=== PATIENT | male | born 1995 | race Caucasian/White ===

== ENCOUNTER 2022-02-13 18:11 | Emergency (ER) | payer BC, SELFPAY ==
[2022-02-13 18:17] VITALS: BP 153/106; PULSE 89; RESP 24; TEMP 35.7; O2SAT 99; BMI 28.5
--- NOTE | 2022-02-13 18:32 | ED_ITS ---
HPI - General Adult General Time Seen by Provider: 18:32 Date Seen: 02/13/22 Chief complaint: Nausea/Vomiting Stated complaint: VOMITING Time Seen by Provider: 02/13/22 18:13 Source: patient Mode of arrival: ambulatory Limitations: no limitations History of Present Illness HPI narrative: Patient is a 26 year white male with [facility] of cyclic [facility], he also reports alcohol use last night that was fairly heavy, none today. He has had a history of using alcohol more recently. He states he has had nausea vomiting started this morning and has not relented. He has had very similar presentations multiple times to the ER. He does respond pretty well to antipsychotic agent IM and some antiemetic medicine. At this point he does not feel he needs IV fluids but would like some injection of medication as it has helped him in the past when he gets in the cyclic vomiting type syndrome either stimulated apparently by marijuana or alcohol use. He denies chest pain shortness of breath, denies skin rashes, denies trauma or injury. Related Data Home Medications Medication Instructions Recorded Confirmed bupropion HCl 150 mg 24 hr tablet, mg PO 02/13/22 extended release clonidine 0.3 mg/24 hr weekly 02/13/22 transdermal patch desvenlafaxine succinate 50 mg mg PO 02/13/22 tablet,extended release 24 hr hydroxyzine HCl 25 mg tablet mg 02/13/22 lisinopril 10 mg tablet mg 02/13/22 lorazepam 0.5 mg tablet mg 02/13/22 ondansetron 4 mg disintegrating mg 02/13/22 tablet prochlorperazine 25 mg rectal mg [place] 02/13/22 suppository Allergies Allergy/AdvReac Type Severity Reaction Status Date / Time haloperidol [From Haldol] Allergy Verified 02/21/22 14:31 Review of Systems Status of ROS: Reports: 6 or more systems reviewed and unremarkable except as noted in History and below PFSH PFSH Social History Smoking Status: Current every day smoker What tobacco products do you use: cigarettes Do you use any of these nicotine containing products: E-Cigarettes and Vaping Products Second hand tobacco smoke exposure: No How often do you have a drink containing alcohol: 4 or more times a week How many standard drinks containing alcohol do you have on a typical day: 3 or 4 How often do you have six or more drinks on one occasion: Daily or almost daily AUDIT-C Alcohol total score: 9 Non-prescribed substance use: marijuana (any form) service: No Exam Narrative: Exam Narrative: Objective: Patient is in mild distress and discomfort he is alert oriented x3. He is actually less agitated than he typically is when he arrives Pulses regular HEENT is unremarkable Neck is supple Abdomen is soft benign nontender Extremities unremarkable Neurologic nonfocal patient is ambulatory Const: Vital Signs, click to edit/add: Vital Signs - 24 hr 02/13/22 18:17 02/13/22 18:49 Temperature 96.3 F L Pulse Rate [Right Pulse Oximeter] 89 71 Respiratory Rate 24 Blood Pressure [Ri ght Upper Arm] 153/106 H Pulse Oximetry 99 98 Course Vital Signs Vital signs: Initial Vital Signs Temperature 96.3 F L 02/13/22 18:17 Temperature Source Temporal Artery Scan 02/13/22 18:17 Pulse Rate 89 02/13/22 18:17 Pulse Rhythm 02/13/22 18:17 Respiratory Rate 24 02/13/22 18:17 Blood Pressure 153/106 H 02/13/22 18:17 Blood Pressure Mean 121 02/13/22 18:17 Blood Pressure Position Sitting 02/13/22 18:17 Pulse Oximetry 99 02/13/22 18:17 Vital Signs Temperature 96.3 F L 02/13/22 18:17 Pulse Rate 89 02/13/22 18:17 Respiratory Rate 24 02/13/22 18:17 Blood Pressure 153/106 H 02/13/22 18:17 Pulse Oximetry 99 02/13/22 18:17 Temperature 96.3 F L 02/13/22 18:17 Pulse Rate 65 02/13/22 18:58 Respiratory Rate 24 02/13/22 18:17 Blood Pressure 153/106 H 02/13/22 18:17 Pulse Oximetry 98 02/13/22 18:58 Oxygen Delivery Method 02/13/22 18:58 Medical Decision Making MDM Narrative Medical decision making narrative: Patient has had a history of cyclic vomitus in vomiting syndrome as well as vomiting after alcohol use. At this point I think treatment for the above- mentioned problem would be appropriate given his past history response to good response to these medications, will give him Zyprexa 7.5 mg IM Ativan 0.5 mg im, and Benadryl 25 mg IM. He will be observed in the ED for a period of time he is able to take fluids he can be allowed to go home. He does have a ride home he states. Discharge Plan Discharge Clinical Impression: Cyclic vomiting syndrome Patient Disposition: Home, Self-Care Condition: Improved Additional Instructions: Continue home meds, light activity, fluids, update primary care in the next 12 to 24 hours.. Activity Level: Light activity Discharge Diet: Regular Prescriptions: No Action lorazepam 0.5 mg tablet Label Comments: 2 weeks prochlorperazine 25 mg suppository OH lisinopril 10 mg tablet hydroxyzine HCl 25 mg tablet clonidine 0.3 mg/24 hr patch weekly ondansetron 4 mg tablet,disintegrating Label Comments: DISSOLVE 1 TABLET ON THE TONGUE EVERY 8 HOURS NEEDED FOR NAUSEA OR VOMITING bupropion HCl 150 mg tablet extended release 24 hr PO desvenlafaxine succinate 50 mg tablet extended release 24 hr PO Stand Alone Forms: [facility] Info Instructions
[2022-02-13] MEDS: diphenhydrAMINE 50 MG/ML inj 25 MG IM (18:47)
[2022-02-13] MEDS: OLANZapine 5 MG/ML inj 7.5 MG IM (18:47)
[2022-02-13 18:49] VITALS: PULSE 71; O2SAT 98
[2022-02-13 18:58] VITALS: PULSE 65; O2SAT 98
[2022-02-13] MEDS: LORazepam 0.5 MG TABLET PO (19:00)
--- NOTE | 2022-02-13 19:25 | ED.NURSE ---
Pt reports feeling improved. Has called ride to pick him up.
== END 2022-02-13 19:38 | disposition home or self-care (01) ==
LOC: ED 18:51
PROVIDERS: Emergency Provider Family Medicine; PCP Physician Assistant Medical
DX: R11.15 Cyclical vomiting syndrome unrelated to migraine (principal); F12.90 Cannabis use, unspecified, uncomplicated
CPT/HCPCS: 96372; 99282; 99283; A9270; J1200; S0166

== ENCOUNTER 2022-02-21 14:16 | Emergency (ER) | payer BC, SELFPAY ==
[2022-02-21 14:21] VITALS: BP 179/123; PULSE 71; RESP 18; TEMP 36.1; O2SAT 100; BMI 28.5
--- NOTE | 2022-02-21 15:01 | ED_ITS ---
HPI - General Adult General Time Seen by Provider: 14:40 Date Seen: 02/21/22 Chief complaint: Nausea/Vomiting Stated complaint: Vomiting Time Seen by Provider: 02/21/22 14:22 Source: patient, RN notes reviewed and old records reviewed Mode of arrival: ambulatory Limitations: no limitations History of Present Illness HPI narrative: Antonio is a 26-year-old male patient well known to us with cyclical vomiting syndrome. He states he was drinking alcohol, had vodka yesterday. He has been having increased usage of alcohol as of late and he understands that this is pro blematic. Since early this morning he has started vomiting and having recurrent vomiting. No hematemesis. No fevers chills. Symptoms are typical of his usual sickle vomiting. He is requesting IM medications, he would prefer Zyprexa. He states he gets dystonic reactions with Haldol. He also is requesting 50 mg of Benadryl but he does want all of his medicines IM. He does not think he needs any IV fluids at this time. Onset (ago): hour(s) Related Data Home Medications Medication Instructions Recorded Confirmed bupropion HCl 150 mg 24 hr tablet, mg PO 02/13/22 extended release clonidine 0.3 mg/24 hr weekly 02/13/22 transdermal patch desvenlafaxine succinate 50 mg mg PO 02/13/22 tablet,extended release 24 hr hydroxyzine HCl 25 mg tablet mg 02/13/22 lisinopril 10 mg tablet mg 02/13/22 lorazepam 0.5 mg tablet mg 02/13/22 ondansetron 4 mg disintegrating mg 02/13/22 tablet prochlorperazine 25 mg rectal mg ME 02/13/22 suppository Allergies Allergy/AdvReac Type Severity Reaction Status Date / Time haloperidol [From Haldol] Allergy Verified 02/21/22 14:31 Review of Systems Status of ROS: Reports: 6 or more systems reviewed and unremarkable except as noted in History and below Exam Const: Vital Signs, click to edit/add: Vital Signs - 24 hr 02/21/22 14:21 02/21/22 15:10 02/21/22 15:15 Temperature 96.9 F L Pulse Rate [Pulse Oximeter] 71 65 65 Respiratory Rate 18 Blood Pressure [Ri ght Upper Arm] 179/123 H Pulse Oximetry 100 98 100 Oxygen Delivery Me thod Room Air Room Air Room Air 02/21/22 15:26 02/21/22 15:49 Temperature Pulse Rate [Pulse Oximeter] 56 L 71 Respiratory Rate Blood Pressure [Ri ght Upper Arm] Pulse Oximetry 93 95 Oxygen Delivery Me thod Room Air Room Air Documenting provider has reviewed patient's vital signs: yes Common normals: no apparent distress, oriented x3, no limitations, healthy appearing, alert and well nourished General appearance: cooperative and comfortable Other: Moving about on bed, deep breathing but overall no apparent distress. HENMT: Common normals: normocephalic, head/scalp atraumatic, moist oral mucous membranes and oropharynx normal Head and scalp: normocephalic and atraumatic Eye: Common normals: PERRL, EOMs intact bilaterally, conjunctivae normal and no scleral icterus Conjunctiva: conjunctiva(e) normal Pupil: PERRL Neck & C-Spine: Common normals: full ROM, no lymphadenopathy, supple, no meningeal signs, no JVD and thyroid normal Thyroid: thyroid normal Resp: Common normals: normal respiratory effort, no retractions, no use of accessory muscles and clear to auscultation bilaterally Auscultation: clear to auscultation bilaterally Cardio: Common normals: no JVD, regular rate, regular rhythm, S1 normal heart sound, S2 normal heart sound, no gallops, no clicks and no murmurs Rate: regular rate Rhythm: regular rhythm Heart sounds: S1 normal and S2 normal GI: Common normals: Normal to inspection, nondistended, normoactive bowel sounds present, soft to palpation, non-tender, no hepatosplenomegaly and no masses Palpation: soft and no hepatosplenomegaly Neuro: Common normals: oriented x3 Sensorium/orientation: alert Meningeal signs: no meningeal signs Course Course Hospital Course: Reviewed with patient, he wants to have zyprexa, benadryl 50 and zofran IM. Doesn't believe that he needs iv fluids or any labs. Does state that he will work with his primary provider regarding the increase in alcohol usage. Reevaluation(s) Reevaluation #1: Antonio was sleeping and resting comfortably. I did awaken him. He feels like he is ready to go. I feel that this is appropriate to discharge for further outpatient management. Time: 17:11 Vital Signs Vital signs: Initial Vital Signs Temperature 96.9 F L 02/21/22 14:21 Temperature Source Temporal Artery Scan 02/21/22 14:21 Pulse Rate 71 02/21/22 14:21 Pulse Rhythm 02/21/22 14:21 Respiratory Rate 18 02/21/22 14:21 Blood Pressure 179/123 H 02/21/22 14:21 Blood Pressure Mean 141 02/21/22 14:21 Pulse Oximetry 100 02/21/22 14:21 Oxygen Delivery Method 02/21/22 14:21 Vital Signs Temperature 96.9 F L 02/21/22 14:21 Pulse Rate 71 02/21/22 14:21 Respiratory Rate 18 02/21/22 14:21 Blood Pressure 179/123 H 02/21/22 14:21 Pulse Oximetry 100 02/21/22 14:21 Oxygen Delivery Method 02/21/22 14:21 Temperature 96.9 F L 02/21/22 14:21 Pulse Rate 71 02/21/22 15:49 Respiratory Rate 18 02/21/22 14:21 Blood Pressure 179/123 H 02/21/22 14:21 Pulse Oximetry 95 02/21/22 15:49 Oxygen Delivery Method 02/21/22 15:49 Critical Care Time Critical Care Time Critical Care Time: No Discharge Plan Discharge Clinical Impression: Cyclic vomiting syndrome Patient Disposition: Home, Self-Care Condition: Stable Instructions: Cyclic Vomiting Syndrome (ED) Additional Instructions: Recommend refraining from marijuana and alcohol. You need to schedule a follow- up clinic appointment with her primary care provider as soon as able to. Take frequent small sips of fluids to stay hydrated, can advance your diet back to normal as able to. Activity Level: No Restrictions Discharge Diet: Regular Prescriptions: No Action lorazepam 0.5 mg tablet Label Comments: 2 weeks prochlorperazine 25 mg suppository [place] lisinopril 10 mg tablet hydroxyzine HCl 25 mg tablet clonidine 0.3 mg/24 hr patch weekly ondansetron 4 mg tablet,disintegrating Label Comments: DISSOLVE 1 TABLET ON THE TONGUE EVERY 8 HOURS NEEDED FOR NAUSEA OR VOMITING bupropion HCl 150 mg tablet extended release 24 hr PO desvenlafaxine succinate 50 mg tablet extended release 24 hr PO Follow Up/Referrals: Deepthi Mc PA-C [Primary Care Provider] - Stand Alone Forms: [employer] Info Instructions
[2022-02-21] MEDS: diphenhydrAMINE 50 MG/ML inj IM (15:09)
[2022-02-21] MEDS: OLANZapine 5 MG/ML inj 10 MG IM (15:09)
[2022-02-21 15:10] VITALS: PULSE 65; O2SAT 98
[2022-02-21] MEDS: ONDANSETRON 2 MG/ML inj 4 MG IM (15:10)
[2022-02-21 15:15] VITALS: PULSE 65; O2SAT 100
[2022-02-21 15:26] VITALS: PULSE 56; O2SAT 93
[2022-02-21 15:49] VITALS: PULSE 71; O2SAT 95
[2022-02-21 17:25] VITALS: BP 120/78
== END 2022-02-21 17:40 | disposition home or self-care (01) ==
PROVIDERS: Emergency Provider Family Medicine; PCP Physician Assistant Medical
DX: R11.15 Cyclical vomiting syndrome unrelated to migraine (principal)
CPT/HCPCS: 96372; 99283; J1200; J2405; S0166

== ENCOUNTER 2022-03-03 09:31 | Emergency (ER) | payer BC, SELFPAY ==
[2022-03-03 09:44] VITALS: BP 185/133; PULSE 79; RESP 22; TEMP 35.9; O2SAT 100; BMI 27.0
--- NOTE | 2022-03-03 10:21 | ED.NURSE ---
Pt removed all monitors - Pulse ox, BP cuff . Not allowing them to be replaced.
--- NOTE | 2022-03-03 10:50 | ED.NURSE ---
Pt continuously filling water bottle in room sink. Drinking water and then immediately spitting it out.
[2022-03-03] MEDS: OLANZapine 5 MG/ML inj 10 MG IM (10:58)
[2022-03-03] MEDS: diphenhydrAMINE 50 MG/ML inj IM (10:58)
--- NOTE | 2022-03-03 11:30 | ED_ITS ---
HPI - Nausea/Vomiting/Diarrhea General Time Seen by Provider: 10:44 Date Seen: 03/03/22 Chief complaint: Nausea/Vomiting Stated complaint: vomiting and abdominal pain Time Seen by Provider: 03/03/22 10:39 Source: patient, family, RN notes reviewed and old records reviewed Mode of arrival: ambulatory Limitations: no limitations History of Present Illness HPI Narrative: Antonio is a 26-year-old gentleman well-known to the emergency room who has a history of cyclic vomiting syndrome associated with anxiety, marijuana use as well as alcohol use who comes to the emergency room with his mother for evaluation of vomiting. Just started vomiting early this morning at about 0200 hours and has continued. He does admit to drinking 3-4 beers yesterday. He has been doing this on a daily basis. His mom states that he has had past treatment for alcohol use and was sober for 8 months while he was in a longterm house. He has had increased stressors as he is now moved out to independent living as well as his sister recently having a baby. He denies any drug use. He feels that this particular episode is similar to past episodes. He denies fever, chills, cough or COVID symptoms. MD elicited complaint: nausea and vomiting Pertinent past history: cyclical vomiting Onset (ago): hour(s) Associated nausea: Yes Associated abdominal pain: No Relieving factors: other (Soft music and a fan) Context: alcohol abuse Associated symptoms: denies other symptoms Related Data Home Medications Medication Instructions Recorded Confirmed bupropion HCl 150 mg 24 hr tablet, mg PO 02/13/22 extended release clonidine 0.3 mg/24 hr weekly 02/13/22 transdermal patch desvenlafaxine succinate 50 mg mg PO 02/13/22 tablet,extended release 24 hr hydroxyzine HCl 25 mg tablet mg 02/13/22 lisinopril 10 mg tablet mg 02/13/22 lorazepam 0.5 mg tablet mg 02/13/22 ondansetron 4 mg disintegrating mg 02/13/22 tablet prochlorperazine 25 mg rectal mg [place] 02/13/22 suppository Allergies Allergy/AdvReac Type Severity Reaction Status Date / Time haloperidol [From Haldol] Allergy Verified 02/21/22 14:31 Review of Systems Status of ROS: Reports: 10 or more systems reviewed and unremarkable except as noted in History and below Const: Denies: fever or chills Eyes: Denies: change in vision ENMT: Denies: throat pain or difficulty swallowing Cardio: Denies: chest pain or shortness of breath with exertion Resp: Denies: shortness of breath or cough GI: Reports: nausea; Denies: difficulty swallowing : Denies: painful urination Integ/Breast: Denies: rash Neuro: Denies: headache Psych: Reports: anxiety Harshal/Lymph: Reports: easy bruising (States secondary to medications) PFSH PFS Social History Smoking Status: Current every day smoker What tobacco products do you use: cigarettes Second hand tobacco smoke exposure: No How often do you have a drink containing alcohol: 4 or more times a week How many standard drinks containing alcohol do you have on a typical day: 3 or 4 How often do you have six or more drinks on one occasion: Daily or almost daily AUDIT-C Alcohol total score: 9 Non-prescribed substance use: former substance user service: No Exam Narrative: Exam Narrative: Antonio is mom is present. Const: Vital Signs, click to edit/add: Vital Signs - 24 hr 03/03/22 09:44 Temperature 96.7 F L Pulse Rate [Left P ulse Oximeter] 79 Respiratory Rate 22 Blood Pressure [Ri ght Upper Arm] 185/133 H Pulse Oximetry 100 Oxygen Delivery Me thod Room Air Documenting provider has reviewed patient's vital signs: yes Common normals: average body habitus, oriented x3 and no limitations General appearance: cooperative and comfortable HENMT: Common normals: normocephalic, external ears normal and external nose normal Head and scalp: normocephalic Face and sinus: normal facial exam Nose: external nose normal External ear: external ears normal Mouth: oral and palatal mucosa normal Throat: posterior oropharynx normal Eye: Common normals: PERRL General eye: normal appearance of both eyes Pupil: PERRL Neck & C-Spine: Common normals: full ROM Resp: Common normals: clear to auscultation bilaterally Effort & inspection: other (Practicing deep breathing) Auscultation: clear to auscultation bilaterally Cardio: Common normals: regular rate and regular rhythm Rate: regular rate Rhythm: regular rhythm GI: Common normals: soft to palpation and non-tender Palpation: soft Extremity: Common normals: normal to inspection Neuro: Common normals: oriented x3 Psych: Common normals: cooperative Other: Antonio exhibits movement and deep breathing consistent with past visits. He is distractible and is very pointed in exactly what he wants for medications. He is requesting Zyprexa 10 mg IM, Benadryl 10 mg IM, Zofran 8 mg. Skin: Narrative: Bruising noted on the left forearm. Course Course Hospital Course: At this time Antonio is presenting for symptoms consistent with cyclic vomiting syndrome but now being induced by daily alcohol use. I explained to Antonio in his mom that essentially we do not treat for alcohol hangovers. I am concerned that Antonio is anxiety is at the heart of all of his symptoms. His mom states that he will be going to Alcohol anonymous meetings. He does call me back into the room when his mom departs requesting and naltrexone shot which I do decline. He will need to go through his primary MD for this. I am not entirely convinced that living alone is to Antonio's benefit. I declined his request for Zofran as he is already getting Zyprexa and I would like to avoid 2 medications that could cause QT prolongation. He then requests Compazine which I denied. I am willing to do Benadryl 50 mg IM, Zyprexa 10 mg IM. He states then he would rather not wait he would just rather go home. I would ask that he wait for the normal 15 minutes to ensure no reaction and then he may depart. Vital Signs Vital signs: Initial Vital Signs Temperature 96.7 F L 03/03/22 09:44 Temperature Source Temporal Artery Scan 03/03/22 09:44 Pulse Rate 79 03/03/22 09:44 Pulse Rhythm 03/03/22 09:44 Pulse Strength 3+ Normal 03/03/22 09:44 Respiratory Rate 22 03/03/22 09:44 Blood Pressure 185/133 H 03/03/22 09:44 Blood Pressure Mean 150 03/03/22 09:44 Blood Pressure Position Sitting 03/03/22 09:44 Pulse Oximetry 100 03/03/22 09:44 Oxygen Delivery Method 03/03/22 09:44 Vital Signs Temperature 96.7 F L 03/03/22 09:44 Pulse Rate 79 03/03/22 09:44 Respiratory Rate 22 03/03/22 09:44 Blood Pressure 185/133 H 03/03/22 09:44 Pulse Oximetry 100 03/03/22 09:44 Oxygen Delivery Method 03/03/22 09:44 Temperature 96.7 F L 03/03/22 09:44 Pulse Rate 79 03/03/22 09:44 Respiratory Rate 03/03/22 09:44 Blood Pressure 185/133 H 03/03/22 09:44 Pulse Oximetry 100 03/03/22 09:44 Oxygen Delivery Method 03/03/22 09:44 MDM - Nausea/Vomiting/Diarrhea MDM Narrative Medical decision making narrative: 1. Cyclic vomiting syndrome-patient received Zyprexa 10 mg IM, Benadryl 50 mg IM. Initial reports from nursing is that he was drinking water and then putting hand in his mouth to caused vomiting. This has since ceased. Note that are medications are only treating the symptoms and not the true cause of Antonio's issues. Recommend pushing fluids to not include water but to include Gatorade as well as good sources of magnesium. 2. Daily alcohol use-did recommend treatment today but Antonio declines this. Mom states that they are planning on having him attend AA meetings. 3. Disposition-patient is requesting to go home. He will be discharged. He should return as needed. Medical Records Attestation: I reviewed the patient's medical records. Discharge Plan Discharge Clinical Impression: Alcohol use, Cyclic vomiting syndrome Patient Disposition: Home w/ Parent or Adult Condition: Improved Additional Instructions: Push fluids as much as possible. I would suggest on not just water but also Gatorade, Powerade as well as increasing magnesium intake. Magnesium is found in green vegetables as well as sunflower seeds and some nuts. Alternatively you may take [id number] magnesium tablets. Return as needed. Consider alcohol treatment. Prescriptions: No Action lorazepam 0.5 mg tablet Label Comments: 2 weeks prochlorperazine 25 mg suppository OH lisinopril 10 mg tablet hydroxyzine HCl 25 mg tablet clonidine 0.3 mg/24 hr patch weekly ondansetron 4 mg tablet,disintegrating Label Comments: DISSOLVE 1 TABLET ON THE TONGUE EVERY 8 HOURS NEEDED FOR NAUSEA OR VOMITING bupropion HCl 150 mg tablet extended release 24 hr PO desvenlafaxine succinate 50 mg tablet extended release 24 hr PO Follow Up/Referrals: Deepthi Mc PA-C [Primary Care Provider] - Stand Alone Forms: [employer] Info Instructions
== END 2022-03-03 12:19 | disposition home or self-care (01) ==
PROVIDERS: Emergency Provider Family Medicine; PCP Physician Assistant Medical
DX: R11.15 Cyclical vomiting syndrome unrelated to migraine (principal); F10.99 Alcohol use, unspecified with unspecified alcohol-induced disorder
CPT/HCPCS: 96372; 99283; 99284; J1200; S0166

== ENCOUNTER 2022-04-08 15:35 | Emergency (ER) | payer BC, SELFPAY ==
[2022-04-08 15:40] VITALS: BP 151/90; PULSE 81; RESP 12; TEMP 35.8; O2SAT 100; BMI 27.1
--- NOTE | 2022-04-08 16:09 | ED.NAVMDI ---
HPI - Nausea/Vomiting/Diarrhea General Chief complaint: Nausea/Vomiting Stated complaint: Vomiting Time Seen by Provider: 04/08/22 15:51 History of Present Illness HPI Narrative: 26-year-old young man returning to this emergency department brought by his mother with recurrent vomiting over the last 7-8 hours beginning around 9:00 a.m. after last visit here, he received treatment and was discharged pending effect of medications; this is typical. He says that symptoms did not actually resolve at home other than over time. Does have a history of cyclic vomiting, severe anxiety and continued THC ingestion. His also now been over the last month living in his own apartment and has begun drinking with other increased social stressors as well. Last night actually had a half a L of vodka. He admits to drinking at least over the prior few nights as well. He says he knows he just has to stop. He has not been attending AA. He is not experiencing any hematochezia. Some mild abdominal pain. I asked him how we should treat him, he notes as usual, intramuscular injections of diphenhydramine, Zofran, lorazepam. I do not see Zyprexa on medication list at this time Related Data Home Medications Medication Instructions Recorded Confirmed bupropion HCl 150 mg 24 hr tablet, mg PO 02/13/22 extended release clonidine 0.3 mg/24 hr weekly 02/13/22 transdermal patch desvenlafaxine succinate 50 mg mg PO 02/13/22 tablet,extended release 24 hr hydroxyzine HCl 25 mg tablet mg 02/13/22 lisinopril 10 mg tablet mg 02/13/22 lorazepam 0.5 mg tablet mg 02/13/22 ondansetron 4 mg disintegrating mg 02/13/22 tablet prochlorperazine 25 mg rectal mg [place] 02/13/22 suppository Allergies Allergy/AdvReac Type Severity Reaction Status Date / Time haloperidol [From Haldol] Allergy Verified 02/21/22 14:31 Review of Systems Status of ROS: Reports: 6 or more systems reviewed and unremarkable except as noted in History and below [facility] Social History Smoking Status: Current every day smoker What tobacco products do you use: cigarettes Do you use any of these nicotine containing products: E-Cigarettes and Vaping Products Second hand tobacco smoke exposure: No How often do you have a drink containing alcohol: 4 or more times a week How many standard drinks containing alcohol do you have on a typical day: 3 or 4 How often do you have six or more drinks on one occasion: Daily or almost daily AUDIT-C Alcohol total score: 9 Non-prescribed substance use: marijuana (any form) service: No Exam Narrative: Exam Narrative: Very flushed in face. Very tremulous. Slower but labored and deep breathing. Has soothing music playing. I thought maybe I caught a slight odor of ketones Mouth and teeth look dry. Fully alert. Lungs appear to be clear Abdomen is soft and not particularly tender. Overweight. Cardiovascular with elevated rate on my auscultation; no tachycardia Const: Vital Signs, click to edit/add: Vital Signs - 24 hr 04/08/22 15:40 Temperature 96.4 F L Pulse Rate [Pulse Oximeter] 81 Respiratory Rate 12 Blood Pressure [Le ft Upper Arm] 151/90 H Pulse Oximetry 100 Oxygen Delivery Me thod Room Air Documenting provider has reviewed patient's vital signs: yes Course Course Hospital Course: Received injections. Discharged to [facility] Vital Signs Vital signs: Initial Vital Signs Temperature 96.4 F L 04/08/22 15:40 Temperature Source Temporal Artery Scan 04/08/22 15:40 Pulse Rate 81 04/08/22 15:40 Pulse Rhythm 04/08/22 15:40 Respiratory Rate 12 04/08/22 15:40 Blood Pressure 151/90 H 04/08/22 15:40 Blood Pressure Mean 110 04/08/22 15:40 Blood Pressure Position Right Lateral 04/08/22 15:40 Pulse Oximetry 100 04/08/22 15:40 Oxygen Delivery Method 04/08/22 15:40 Vital Signs Temperature 96.4 F L 04/08/22 15:40 Pulse Rate 81 04/08/22 15:40 Respiratory Rate 12 04/08/22 15:40 Blood Pressure 151/90 H 04/08/22 15:40 Pulse Oximetry 100 04/08/22 15:40 Oxygen Delivery Method 04/08/22 15:40 Temperature 96.4 F L 04/08/22 15:40 Pulse Rate 81 04/08/22 15:40 Respiratory Rate 12 04/08/22 15:40 Blood Pressure 151/90 H 09/19/22 15:40 Pulse Oximetry 100 04/08/22 15:40 Oxygen Delivery Method 04/08/22 15:40 MDM - Nausea/Vomiting/Diarrhea MDM Narrative Medical decision making narrative: We will try to break this episode. I did discuss that repeat visits will require a detox placement. Medical Records Attestation: I reviewed the patient's medical records. Discharge Plan Discharge Clinical Impression: Alcohol abuse, Anxiety, Cyclic vomiting syndrome Patient Disposition: Home w/ Parent or Adult Condition: Stable Additional Instructions: My understanding is that you are going to attend AA. Please do this. Get a sponsor. Do make a visit with primary care if you would like to discuss receiving naltrexone. Have your family help you clear your apartment of substances including alcohol which cause you difficulty. If you need, we can send you to detox. Prescriptions: No Action lorazepam 0.5 mg tablet Label Comments: 2 weeks prochlorperazine 25 mg suppository MA lisinopril 10 mg tablet hydroxyzine HCl 25 mg tablet clonidine 0.3 mg/24 hr patch weekly ondansetron 4 mg tablet,disintegrating Label Comments: DISSOLVE 1 TABLET ON THE TONGUE EVERY 8 HOURS NEEDED FOR NAUSEA OR VOMITING bupropion HCl 150 mg tablet extended release 24 hr PO desvenlafaxine succinate 50 mg tablet extended release 24 hr PO Follow Up/Referrals: Deepthi Mc PA-C [Primary Care Provider] - Stand Alone Forms: [employer]de[employer]) Info Instructions
[2022-04-08] MEDS: diphenhydrAMINE 50 MG/ML inj IM (16:27)
[2022-04-08] MEDS: LORazepam 2 MG/ML inj IM (16:27)
[2022-04-08] MEDS: ONDANSETRON 2 MG/ML inj 8 MG IM (16:27)
== END 2022-04-08 17:13 | disposition home or self-care (01) ==
PROVIDERS: Emergency Provider Family Medicine; PCP Physician Assistant Medical
DX: R11.15 Cyclical vomiting syndrome unrelated to migraine (principal); F41.9 Anxiety disorder, unspecified; F10.10 Alcohol abuse, uncomplicated
CPT/HCPCS: 96372; 99283; 99284; J1200; J2060; J2405

== ENCOUNTER 2022-08-12 09:35 | Emergency (ER) | payer BC, SELFPAY ==
[2022-08-12 10:02] VITALS: BP 146/60; PULSE 79; RESP 18; TEMP 36.1; O2SAT 96
[2022-08-12] MEDS: diphenhydrAMINE 50 MG/ML inj 25 MG IM (11:22)
[2022-08-12] MEDS: OLANZapine 5 MG/ML inj IM (11:22)
--- NOTE | 2022-08-12 11:23 | ED_ITS ---
HPI - General Adult General Date Seen: 08/12/22 Chief complaint: Nausea/Vomiting Stated complaint: Vomiting, tremors for 24 hours Time Seen by Provider: 08/12/22 10:22 Source: patient History of Present Illness HPI narrative: Patient is a 26-year-old male with a long history of both cannabis and alcohol use. He presents with ?tremors which he says he has been having for the past couple of weeks. He says he had not been drinking for the past week and a half for so, but he had a friend who was going to go into rehab, apparently needed some alcohol to deal with withdrawal symptoms, and so he says he was drinking alcohol with him as a result. He says his last alcohol was on Friday. However, he does not clearly relate these symptoms to withdrawal, as he says he has these regularly. He does acknowledge that they may be related to anxiety. He does have hydroxyzine as well as Ativan at home. He took some Ativan around 5:00 a.m. this morning and thinks it maybe helped a little bit. He says he has not been taking his other mental health medications as he has not been able to keep them down. It does not sound however that nausea and vomiting is a significant part of his symptoms today, he does not endorse cyclic vomiting type symptoms. He does have psychomotor agitation today he is moving constantly, he says that he does not know why he just feels better if he is moving constantly. He holds his left arm up in the air throughout the time I am talking to him. He is often kind of waving it back and forth although this is under voluntary control. He says he has lower abdominal pain, which is not unusual for him. He has had a little bit of vomiting, denies diarrhea. He has not had fevers. Has not had difficulty breathing. He says he is not using marijuana currently. He denies other substances. He does say that he is tired of living like this, would like to pursue inpatient treatment. He says that he last went through treatment about a year ago, but says he was not ready at that time. He now feels like he is ready. Related Data Home Medications Medication Instructions Recorded Confirmed bupropion HCl 150 mg 24 hr tablet, mg PO 02/13/22 extended release clonidine 0.3 mg/24 hr weekly 02/13/22 transdermal patch desvenlafaxine succinate 50 mg mg PO 02/13/22 tablet,extended release 24 hr hydroxyzine HCl 25 mg tablet mg 02/13/22 lisinopril 10 mg tablet mg 02/13/22 lorazepam 0.5 mg tablet mg 02/13/22 ondansetron 4 mg disintegrating mg 02/13/22 tablet prochlorperazine 25 mg rectal mg SD 02/13/22 suppository Allergies Allergy/AdvReac Type Severity Reaction Status Date / Time haloperidol [From Haldol] Allergy Verified 02/21/22 14:31 Review of Systems Status of ROS: Reports: 6 or more systems reviewed and unremarkable except as noted in History and below [facility] Social History Smoking Status: Current every day smoker What tobacco products do you use: cigarettes Do you use any of these nicotine containing products: E-Cigarettes and Vaping Products Second hand tobacco smoke exposure: No How often do you have a drink containing alcohol: 4 or more times a week How many standard drinks containing alcohol do you have on a typical day: 3 or 4 How often do you have six or more drinks on one occasion: Daily or almost daily AUDIT-C Alcohol total score: 9 Non-prescribed substance use: marijuana (any form) service: No Exam Narrative: Exam Narrative: Vital signs as noted above. In general, an alert, anxious-appearing young man. Head: Normocephalic, atraumatic. Eyes: Pupils are equal reactive. Extraocular movements are full. Conjunctivae are normal. No scleral icterus. ENT: Mucous membranes are moist. Neck: Supple without lymphadenopathy. Heart: Regular rate and rhythm. No murmur or rub. Lungs: Clear bilaterally. No increased work of breathing, crackles or wheezes. Abdomen: Soft and nontender Extremities: Well perfused. No edema. No calf tenderness. Pulses intact. Neurologic: Patient is alert and oriented to person and place. Speech is fluent. Face is symmetric. Moves all extremities equally. He moves particularly his left arm almost continuously while on with him. He is lying on his right side so his right arm is pending underneath him. He tends to undulate his torso and stomach rhythmically as well. He is able to voluntarily. All of these movements. He does have a tremor when I ask him to hold his hands out in front of him, but I am not sure how much of this is voluntary as when I watch him hold his hand up in the air, I do not notice any tremor. Affect: Normal. Skin: Warm and dry. His face is flushed red, he has flushed red areas on multiple areas of his body, which he says happens because he rubs his skin when he is agitated. No other rash. Const: Vital Signs, click to edit/add: Vital Signs - 24 hr 08/12/22 10:02 Temperature 96.9 F L Pulse Rate [Right Pulse Oximeter] 79 Respiratory Rate 18 Blood Pressure [Ri ght Upper Arm] 146/60 H Pulse Oximetry 96 Oxygen Delivery Me thod Room Air Documenting provider has reviewed patient's vital signs: yes Course Course Hospital Course: In talking with him, it is not clear to me that symptoms are necessarily related to alcohol withdrawal, as it sounds as if he has symptoms like this on a very regular basis. Think that there is a component of anxiety to this, and I think that there is a little bit of a component of habit to it as well, as he is very clear exactly which medications he wants. For example, he wants Zofran IM, even though he really does not have a lot of nausea or vomiting today. He seems uncomfortable with the idea of not having the medication even though it is not really appropriate for his symptom profile today. I suggested we start with Zyprexa and Benadryl, since I think those medications are more likely to help with his current symptoms. Will see how he is feeling after that. When I rechecked on him, I opened the door and he was resting comfortably underneath a blanket. When I woke him up, he immediately started doing his undulating body movements and breathing rapidly again. He said that he was still feeling anxious. However, I do think this is a voluntary and intentional behavior as he was resting peacefully in breathing normally until I woke him up. I suggested I think it best we let him go home and rest for a bit and see how he does. I asked him if he needed resources on inpatient rehab facilities and he declined. I encouraged him to pursue that if he feels he is ready to stop using alcohol and marijuana. Vital Signs Vital signs: Initial Vital Signs Temperature 96.9 F L 08/12/22 10:02 Temperature Source Temporal Artery Scan 08/12/22 10:02 Pulse Rate 79 08/12/22 10:02 Respiratory Rate 18 08/12/22 10:02 Blood Pressure 146/60 H 08/12/22 10:02 Blood Pressure Mean 88 08/12/22 10:02 Blood Pressure Position Sitting 08/12/22 10:02 Pulse Oximetry 96 08/12/22 10:02 Oxygen Delivery Method 08/12/22 10:02 Vital Signs Temperature 96.9 F L 08/12/22 10:02 Pulse Rate 79 08/12/22 10:02 Respiratory Rate 18 08/12/22 10:02 Blood Pressure 146/60 H 08/12/22 10:02 Pulse Oximetry 96 08/12/22 10:02 Oxygen Delivery Method 08/12/22 10:02 Temperature 96.9 F L 08/12/22 10:02 Pulse Rate 79 08/12/22 10:02 Respiratory Rate 18 08/12/22 10:02 Blood Pressure 146/60 H 08/12/22 10:02 Pulse Oximetry 96 08/12/22 10:02 Oxygen Delivery Method 08/12/22 10:02 Discharge Plan Discharge Clinical Impression: Substance abuse, Anxiety Patient Disposition: Home, Self-Care Condition: Improved Instructions: Polysubstance Abuse (ED), Anxiety (ED) Prescriptions: No Action lorazepam 0.5 mg tablet Label Comments: 2 weeks prochlorperazine 25 mg suppository SD lisinopril 10 mg tablet hydroxyzine HCl 25 mg tablet clonidine 0.3 mg/24 hr patch weekly ondansetron 4 mg tablet,disintegrating Label Comments: DISSOLVE 1 TABLET ON THE TONGUE EVERY 8 HOURS NEEDED FOR NAUSEA OR VOMITING bupropion HCl 150 mg tablet extended release 24 hr PO desvenlafaxine succinate 50 mg tablet extended release 24 hr PO Follow Up/Referrals: Deepthi Mc PA-C [Primary Care Provider] - Stand Alone Forms: [employer] Info Instructions
== END 2022-08-12 13:56 | disposition home or self-care (01) ==
PROVIDERS: Emergency Provider Emergency Medicine; PCP Physician Assistant Medical
DX: F12.10 Cannabis abuse, uncomplicated (principal); F10.10 Alcohol abuse, uncomplicated; F41.9 Anxiety disorder, unspecified
CPT/HCPCS: 96372; 99283; 99284; J1200; S0166

== ENCOUNTER 2022-08-14 08:33 | Outpatient (CLI) | payer BC, SELFPAY | END 2022-08-14 08:34 | disposition home or self-care (01) | LOC: AMB 11-01 14:00 | PROVIDERS: PCP Physician Assistant Medical; Visit Provider Student in an Organized Health Care Education/Training Program | DX: I10 Essential (primary) hypertension (principal); R11.10 Vomiting, unspecified; F41.9 Anxiety disorder, unspecified | CPT/HCPCS: A0425; A0427 ==

== ENCOUNTER 2022-08-14 09:01 | Inpatient (IN) | payer BC, SELFPAY ==
[2022-08-14] VITALS (11 sets, daily range): BP systolic 95–141; BP diastolic 53–129; PULSE 70–120; RESP 18–40; TEMP 36.1–36.6; O2SAT 97–100; BMI 26.4
--- NOTE | 2022-08-14 09:07 | ED_ITS ---
HPI - General Adult General Time Seen by Provider: 09:08 Date Seen: 08/14/22 Chief complaint: Nausea/Vomiting Stated complaint: Vomiting Time Seen by Provider: 08/14/22 09:07 Source: EMS History of Present Illness HPI narrative: Claudio is a 26-year-old male past medical history includes alcohol and cannabis abuse presents emerged department via EMS with vomiting and anxiety. Patient was just seen here in the emergency department on 08/12 for the same, he does have Vistaril and Ativan at home. He was given Zyprexa and Benadryl and sent home. Last time he was an inpatient was 1 year ago. Patient states the last time he had 2 beers was last Friday, he has not smoked marijuana since last June, denies any other drug use, denies any auditory visual hallucinations. He is currently on Effexor, Vistaril, clonidine is seen and as needed trazodone, no new medications, patient was seen hair and discharged home, he did not feel better after the Zyprexa and Benadryl, denies any nausea but has vomiting any time he takes any orals in, patient does not have any fevers or chills. Patient denies any shortness of breath or chest pain, no abdominal pain, urinary complaints or diarrhea. Related Data Home Medications Medication Instructions Recorded Confirmed clonidine 0.3 mg/24 hr weekly 1 patch topical MO 02/13/22 08/14/22 transdermal patch desvenlafaxine succinate 50 mg 50 mg PO DAILY 02/13/22 08/14/22 tablet,extended release 24 hr hydroxyzine HCl 25 mg tablet 25 - 50 mg PO Q6H PRN 02/13/22 08/14/22 lisinopril 10 mg tablet 10 mg PO DAILY 02/13/22 08/14/22 lorazepam 0.5 mg tablet 0.5 mg PO DAILY PRN 02/13/22 08/14/22 ondansetron 4 mg disintegrating 4 mg PO Q8H PRN 02/13/22 08/14/22 tablet prochlorperazine 25 mg rectal 25 mg [place] Q12H PRN 02/13/22 08/14/22 suppository desvenlafaxine succinate 25 mg 25 mg PO DAILY 08/14/22 08/14/22 tablet,extended release 24 hr folic acid 1 mg tablet 1 mg PO DAILY 08/14/22 08/14/22 lisdexamfetamine 20 mg capsule 20 mg PO DAILY PRN 08/14/22 08/14/22 (Vyvanse) melatonin 10 mg capsule 10 mg PO HS 08/14/22 08/14/22 trazodone 50 mg tablet 25 mg PO HS PRN 08/14/22 08/14/22 Allergies Allergy/AdvReac Type Severity Reaction Status Date / Time haloperidol [From Haldol] Allergy Verified 02/21/22 14:31 Review of Systems Status of ROS: Reports: 10 or more systems reviewed and unremarkable except as noted in History and below [facility] Medical History (Updated 08/14/22 @ 16:20 by Du Gutierrez MD) Anxiety Cyclical vomiting Normal colonoscopy Normal esophagogastroduodenoscopy (EGD) Substance abuse Surgical History (Updated 08/14/22 @ 16:20 by Du Gutierrez MD) History of myringotomy Social History (Updated 08/14/22 @ 16:22 by Du Gutierrez MD) Narrative: Patient lives in his own apartment in [place]. His mother is healthcare power of habilitation training specialist and code status is full. History of alcohol and cannabis abuse. Current cigarette smoking. Highest level of school completed/degree received: Associate degree: occupational, technical, vocational program Smoking Status: Former smoker What tobacco products do you use: cigarettes Smoking quit date/years: >15 years ago Do you use any of these nicotine containing products: E-Cigarettes and Vaping Products Second hand tobacco smoke exposure: No How often do you have a drink containing alcohol: 4 or more times a week How many standard drinks containing alcohol do you have on a typical day: 3 or 4 How often do you have six or more drinks on one occasion: Daily or almost daily AUDIT-C Alcohol total score: 9 Non-prescribed substance use: marijuana (any form) Caffeine: Yes service: No Exam Narrative: Exam Narrative: General: Patient is distress, constantly getting up and laying down, HEENT: Tympanic membranes within normal limits bilateral oropharynx is clear and moist, pupils equal round reactive to light Neck: Supple, full range of motion Heart: Sinus tachycardia :Lungs due to auscultation bilaterally Abdomen: Soft nontender : Skin facial erythema and upper chest erythema Neuro: Psychomotor agitation, tremors, no hyperreflexia no clonus, no rigidity Psych: Denies any hallucinations, Const: Vital Signs, click to edit/add: Vital Signs - 24 hr 08/14/22 12:15 Pulse Rate [Pulse Oximeter] 103 H Respiratory Rate 20 Blood Pressure [Le ft Upper Arm] 95/53 L Pulse Oximetry 100 Oxygen Delivery Me thod Room Air Course Course Hospital Course: 9:00 AM: AIDET performed, vitals show elevated blood pressure, tachycardia and tachypnea, no hypoxia, workup will include IV peripheral, 10 mg IV Valium, will obtain CBC, magnesium, CMP, lipase, urine drug screen, serum ETOH, CK and lactate, less likely serotonin syndrome or tardive dyskinesia, rule out any metabolic abnormalities, no new medication changes. Differential diagnosis include but not limited to medication side effects, hypoglycemia, hypercalcemia hypo or hypernatremia, hypothyroidism, hepatic encephalopathy, tardive dyskinesia, serotonin syndrome, sepsis, seizures, as well as all etiologies. Reevaluation(s) Reevaluation #1: Patient was updated on his lab results, potassium low at 2.9, sodium 124, elevated creatinine kinase of 369 and lactate of 3.6, less likely related to sepsis, CBC showed mildly elevated white count of 13.19, as well as platelet c ount of 458 most likely reactive, neutrophil percentage of 75.7 neutrophil number of 10.00, serum ETOH is less than 0.01%, urine drug screen pending, likely admit for correction of metabolic abnormalities, was given the above care and did well, this included 20 mg total IV Valium and 10 mg IV Reglan, he was given potassium chloride supplementation 40 mEq and 10 mg IV push, vitals improve during his stay, spoke with Dr. Gutierrez hospitalist on-call and he accepts care of the patient to a [facility] surgery bed. Time: 12:39 Vital Signs Vital signs: Initial Vital Signs Temperature 97.9 F 08/14/22 09:06 Temperature Source Temporal Artery Scan 08/14/22 09:06 Pulse Rate 120 H 08/14/22 09:06 Respiratory Rate 40 H 08/14/22 09:06 Blood Pressure 141/129 H 08/14/22 09:06 Blood Pressure Mean 133 08/14/22 09:06 Blood Pressure Position Supine 08/14/22 09:06 Pulse Oximetry 100 08/14/22 09:06 Oxygen Delivery Method 08/14/22 09:06 Vital Signs Temperature 97.9 F 08/14/22 09:06 Pulse Rate 120 H 08/14/22 09:06 Respiratory Rate 40 H 08/14/22 09:06 Blood Pressure 141/129 H 08/14/22 09:06 Pulse Oximetry 100 08/14/22 09:06 Oxygen Delivery Method 08/14/22 09:06 Temperature 97.5 F L 08/15/22 07:36 Pulse Rate 65 08/15/22 07:46 Respiratory Rate 16 08/15/22 07:46 Blood Pressure 98/48 L 08/15/22 07:46 Pulse Oximetry 96 08/15/22 07:46 Oxygen Delivery Method 08/15/22 07:46 Medical Decision Making Lab Data Labs: Lab Results 08/14/22 08/14/22 08/14/22 Range/Units 09:40 09:40 09:40 WBC 13.19 H (4.50-11.00) K/uL RBC 4.96 (4.30-5.90) m/uL Hgb 14.8 (13.5-17.5) gm/dL Hct 41.3 (37.0-53.0) % MCV 83 (80-100) fL MCH 30 (26-34) pg MCHC 36 (32-36) gm/dL RDW Coeff of Belia 12.5 (11.5-15.5) % Plt Count 458 H (140-440) K/uL Neut % (Auto) 75.7 H (42.0-72.0) % Lymph % (Auto) 14.2 L (20-44) % Iron % (Auto) 9.8 (0.0-11.0) % Eos % (Auto) 0.0 (0.0-7.0) % Baso % (Auto) 0.1 (0.0-3.0) % Neut # (Auto) 10.00 H (1.7-7.0) K/uL Lymph # (Auto) 1.90 (0.90-2.90) K/uL Iron # (Auto) 1.30 H (0.00-0.90) K/UL Eos # (Auto) 0.00 (0.00-0.50) K/uL Baso # (Auto) 0.00 (0.00-0.30) K/uL Sodium 124 L* (135-149) mmol/L Potassium 2.9 L* (3.6-5.1) mmol/L Chloride 80 L (96-114) mmol/L Carbon Dioxide 23 (20-32) mmol/L BUN 28 H (5-24) mg/dL Creatinine 1.3 (0.5-1.5) mg/dL Estimated Creat Clear 94.51 Estimated GFR 78 ml/min Glucose 87 (60-115) mg/dL Lactate (0.5-1.9) mmol/L Calcium 9.4 (8.4-10.6) mg/dL Magnesium 1.9 (1.5-2.6) mg/dL Total Bilirubin 2.9 H (0.1-1.5) mg/dL AST 47 H (12-35) U/L ALT 31 (4-50) U/L Alkaline Phosphatase 88 (40-150) U/L Total Creatine Kinase 369 H (54-186) U/L Total Protein 7.6 (6.0-8.3) g/dL Albumin 5.0 (3.3-5.0) g/dL Lipase 181 (23-300) U/L TSH (0.270-4.20) uIU/mL Ethyl Alcohol < 0.01 L (0.01-0.03) % SARS-CoV-2 (PCR) (Negative) 08/14/22 08/14/22 08/14/22 Range/Units 09:40 09:40 12:15 WBC (4.50-11.00) K/uL RBC (4.30-5.90) m/uL Hgb (13.5-17.5) gm/dL Hct (37.0-53.0) % MCV (80-100) fL MCH (26-34) pg MCHC (32-36) gm/dL RDW Coeff of Belia (11.5-15.5) % Plt Count (140-440) K/uL Neut % (Auto) (42.0-72.0) % Lymph % (Auto) (20-44) % Iron % (Auto) (0.0-11.0) % Eos % (Auto) (0.0-7.0) % Baso % (Auto) (0.0-3.0) % Neut # (Auto) (1.7-7.0) K/uL Lymph # (Auto) (0.90-2.90) K/uL Iron # (Auto) (0.00-0.90) K/UL Eos # (Auto) (0.00-0.50) K/uL Baso # (Auto) (0.00-0.30) K/uL Sodium (135-149) mmol/L Potassium (3.6-5.1) mmol/L Chloride (96-114) mmol/L Carbon Dioxide (20-32) mmol/L BUN (5-24) mg/dL Creatinine (0.5-1.5) mg/dL Estimated Creat Clear Estimated GFR ml/min Glucose (60-115) mg/dL Lactate 3.6 H (0.5-1.9) mmol/L Calcium (8.4-10.6) mg/dL Magnesium (1.5-2.6) mg/dL Total Bilirubin (0.1-1.5) mg/dL AST (12-35) U/L ALT (4-50) U/L Alkaline Phosphatase (40-150) U/L Total Creatine Kinase (54-186) U/L Total Protein (6.0-8.3) g/dL Albumin (3.3-5.0) g/dL Lipase (23-300) U/L TSH 0.121 L (0.270-4.20) uIU/mL Ethyl Alcohol (0.01-0.03) % SARS-CoV-2 (PCR) Negative SARS-CoV-2 (Negative) Discharge Plan Discharge Clinical Impression: Hyponatremia, Cyclical vomiting, Acute hypokalemia Patient Disposition: Admitted As Inpatient Condition: Improved
[2022-08-14] MEDS: diazePAM 5 MG/ML inj 10 MG IV (09:27)
[2022-08-14] MEDS: 0.9 % SODIUM CHLORIDE 1000 ml 1,000 ML IV (09:46)
[2022-08-14 09:49] LABS: Basophils Percent Auto 0.1 % (0.0-3.0); Hematocrit 41.3 % (37.0-53.0); Hemoglobin* 14.8 gm/dL (13.5-17.5); Immature Granulocytes Pct Auto 0.2 %; Lactate* 3.6 mmol/L (0.5-1.9); Lymphocytes Percent Auto 14.2 % (20-44); Mean Corpuscular HGB Conc 36 gm/dL (32-36); Mean Corpuscular Hemoglobin 30 pg (26-34); Mean Corpuscular Volume 83 fL (80-100); Monocytes Percent Auto 9.8 % (0.0-11.0); Neutrophils Percent Auto 75.7 % (42.0-72.0); Platelet Count* 458 K/uL (140-440); RDW Coefficient of Variation % 12.5 % (11.5-15.5); Red Blood Count 4.96 m/uL (4.30-5.90); White Blood Count* 13.19 K/uL (4.50-11.00)
[2022-08-14 09:53] LABS: Slide Review Reflex No
[2022-08-14 10:14] LABS: Chloride* 80 mmol/L (96-114)
[2022-08-14 10:16] LABS: Creatine Kinase* 369 U/L (54-186); Creatinine* 1.3 mg/dL (0.5-1.5); Est. Creatinine Clearance* 94.51; Estimated Glomerular Filt Rate 78 ml/min
[2022-08-14 10:17] LABS: Alanine Aminotransferase* 31 U/L (4-50); Alkaline Phosphatase* 88 U/L (40-150); Aspartate Amino Transferase* 47 U/L (12-35); Bilirubin Total* 2.9 mg/dL (0.1-1.5); Blood Urea Nitrogen* 28 mg/dL (5-24); Calcium* 9.4 mg/dL (8.4-10.6); Carbon Dioxide* 23 mmol/L (20-32); Glucose* 87 mg/dL (60-115); Lipase* 181 U/L (23-300); Magnesium* 1.9 mg/dL (1.5-2.6); Total Protein* 7.6 g/dL (6.0-8.3)
[2022-08-14 10:26] LABS: Ethanol* < 0.01 % (0.01-0.03); Potassium* 2.9 mmol/L (3.6-5.1); Sodium* 124 mmol/L (135-149)
[2022-08-14] MEDS: METOCLOPRAMIDE HCL 5 MG/ML INJ 10 MG IVP (10:50)
[2022-08-14] MEDS: diazePAM 5 MG/ML inj IV ×2 (10:50→12:08)
[2022-08-14] MEDS: POTASSIUM CHLORIDE 10 MEQ CAPSULE ER 40 MEQ PO (10:52)
[2022-08-14] MEDS: POTASSIUM CHLORIDE 10 MEQ/100 ML PIGGYBACK 100 MEQ IVPB (12:59)
[2022-08-14 13:02] LABS: SARS PCR* Negative SARS-CoV-2 (Negative)
[2022-08-14] MEDS: 0.9 % SODIUM CH + KCL 20 mEq/L 1,000 ML 500 ML IV ×2 (13:32→17:16)
[2022-08-14] MEDS: LORazepam 2 MG/ML inj IVP ×9 (13:32→22:47)
[2022-08-14 13:53] LABS: HCO3 VBG 27 mmol/L (21-28); PCO2 VBG 29 mmHG (40-50); pH VBG 7.575 (7.32-7.43)
[2022-08-14 13:57] LABS: PO2 VBG < 20.0 mmHG (25-47)
[2022-08-14 13:58] LABS: Lactate* 2.6 mmol/L (0.5-1.9)
[2022-08-14 14:04] LABS: Amphetamine Screen Urine Negative (Negative); Barbiturate Screen Urine Negative (Negative); Cocaine Screen Urine Negative (Negative); Methadone Screen Urine Negative (Negative); Methamphetamines Screen Urine Negative (Negative); Opiate Screen Urine Negative (Negative); Oxycodone Screen Urine Negative (Negative); Phencyclidine Screen Urine Negative (Negative); Tricyclic Antidepressant Urine Negative (Negative)
[2022-08-14 14:12] LABS: Cannabinoid Screen Urine POSITIVE (Negative)
[2022-08-14 14:13] LABS: Benzodiazepines Screen Urine POSITIVE (Negative)
--- NOTE | 2022-08-14 15:18 | PM.IMHP1 ---
Hospitalist- H&P: HPI History of Present Illness Date Seen: 08/14/22 Chief complaint: Vomiting Narrative: Claudio Sapp is a 26 year old male with longstanding severe recurrent cyclic vomiting and anxiety presents with 5 day history of severe vomiting, diarrhea, restlessness, hyperventilation, shakiness. Patient reports that since Friday morning he has had trouble taking any significant food or fluid. Multiple nonbloody emesis of occurred during that time. He is not reporting in abdominal pain. He reports this is typical of previous episodes he has had. He was seen in the emergency department 2 days ago and treated with Zyprexa without good relief. Today he received metoclopramide without good relief. At home he takes venlafaxine, lisinopril, p.r.n. hydroxyzine and diphenhydramine and prochlorperazine suppository and Benadryl. He has used the prochlorperazine suppository but unable to keep any of the other medicines down. Had little food or fluid stay down. He has not had diarrhea. Last bowel movement was normal 2 days ago. He reports no significant abdominal pain. He has had multiple emergency department visits in [place] and other emergency departments over the last decade for anxiety is likely cyclic vomiting. He reports his current symptoms are typical of symptoms on those visits but he is feeling worse than usual today. He was hospitalized a year ago for detox from alcohol. He has chronic use of cannabis and alcohol. Last alcohol ingestion was 5 days ago, 2 beers he thinks it has been 1-2 weeks since he had any cannabis. Review of Systems Narrative: For the last 5 days he has had severe restlessness, anxiety, recurrent vomiting, insomnia PFSH PFSH Medical History (Updated 08/14/22 @ 16:20 by Du Gutierrez MD) Anxiety Cyclical vomiting Normal colonoscopy Normal esophagogastroduodenoscopy (EGD) Substance abuse Surgical History (Updated 08/14/22 @ 16:20 by Du Gutierrez MD) History of myringotomy Social History (Updated 08/14/22 @ 16:22 by Du Gutierrez MD) Narrative: Patient lives in his own apartment in [place]. His mother is healthcare power of stemhole borer and topper and code status is full. History of alcohol and cannabis abuse. Current cigarette smoking. Highest level of school completed/degree received: Associate degree: occupational, technical, vocational program Smoking Status: Former smoker What tobacco products do you use: cigarettes Smoking quit date/years: >15 years ago Do you use any of these nicotine containing products: E-Cigarettes and Vaping Products Second hand tobacco smoke exposure: No How often do you have a drink containing alcohol: 4 or more times a week How many standard drinks containing alcohol do you have on a typical day: 3 or 4 How often do you have six or more drinks on one occasion: Daily or almost daily AUDIT-C Alcohol total score: 9 Non-prescribed substance use: marijuana (any form) Caffeine: Yes service: No Meds Home Medications and Allergies Home Medications Medication Instructions Recorded Confirmed Type clonidine 0.3 mg/24 hr weekly 1 patch topical MO 02/13/22 08/14/22 History transdermal patch desvenlafaxine succinate 50 mg 50 mg PO DAILY 02/13/22 08/14/22 History tablet,extended release 24 hr hydroxyzine HCl 25 mg tablet 25 - 50 mg PO Q6H PRN 02/13/22 08/14/22 History lisinopril 10 mg tablet 10 mg PO DAILY 02/13/22 08/14/22 History lorazepam 0.5 mg tablet 0.5 mg PO DAILY PRN 02/13/22 08/14/22 History ondansetron 4 mg disintegrating 4 mg PO Q8H PRN 02/13/22 08/14/22 History tablet prochlorperazine 25 mg rectal 25 mg [place] Q12H PRN 02/13/22 08/14/22 History suppository desvenlafaxine succinate 25 mg 25 mg PO DAILY 08/14/22 08/14/22 History tablet,extended release 24 hr folic acid 1 mg tablet 1 mg PO DAILY 08/14/22 08/14/22 History lisdexamfetamine 20 mg capsule 20 mg PO DAILY PRN 08/14/22 08/14/22 History (Vyvanse) melatonin 10 mg capsule 10 mg PO HS 08/14/22 08/14/22 History trazodone 50 mg tablet 25 mg PO HS PRN 08/14/22 08/14/22 History Allergies Allergy/AdvReac Type Severity Reaction Status Date / Time haloperidol [From Haldol] Allergy Verified 02/21/22 14:31 Exam Narrative: Exam Narrative: He is lying on the gurney in the emergency department. He is very restless. He has gross motor movements of his trunk and both arms and legs which appear primarily voluntary and driven by an internal urge to move. He is hyperventilating. He is oriented to his circumstances. No evidence of hallucinations or delusions. He is able to give his own history limited by his hyperventilation. Head is without trauma. Eyes are normal. No nystagmus. Extraocular movements are full. Oropharynx with dry mucous membranes. Neck is supple without mass or adenopathy. Respirations are clear to auscultation. Cardiovascular: S1, S2, regular tachycardia. Abdomen: Bowel sounds active. Abdomen is soft without tenderness or mass. Extremities with intact pulses and sensation. He moves all 4 extremities well. He has a fine resting tremor in his hands. Const: Vital Signs, click to edit/add: Vital Signs - 24 hr 08/14/22 09:06 08/14/22 09:47 08/14/22 14:14 Temperature 97.9 F Pulse Rate Pulse Rate [Pulse Oximeter] 120 H 90 Respiratory Rate 40 H Blood Pressure [Le ft Arm] Blood Pressure [Le ft Upper Arm] 141/129 H Pulse Oximetry 100 97 97 Oxygen Delivery Me thod Room Air Room Air Room Air 08/14/22 13:30 08/14/22 09:49 08/14/22 12:15 Temperature 97.0 F L Pulse Rate Pulse Rate [Pulse Oximeter] 103 H Respiratory Rate 40 H 20 Blood Pressure [Le ft Arm] 109/72 Blood Pressure [Le ft Upper Arm] 95/53 L Pulse Oximetry 97 97 100 Oxygen Delivery Me thod Room Air Room Air 08/14/22 15:01 08/14/22 15:05 Temperature 97.8 F Pulse Rate 81 Pulse Rate [Pulse Oximeter] Respiratory Rate 20 Blood Pressure [Le ft Arm] 125/73 Blood Pressure [Le ft Upper Arm] Pulse Oximetry 99 Oxygen Delivery Me thod Room Air Documenting provider has reviewed patient's vital signs: yes Hospitalist - H&P: Result Labs Labs: Short CBC 08/14/22 Range/Units 09:40 WBC 13.19 H (4.50-11.00) K/uL Hgb 14.8 (13.5-17.5) gm/dL Hct 41.3 (37.0-53.0) % Plt Count 458 H (140-440) K/uL BMP 08/14/22 09:40 Sodium 124 L* Potassium 2.9 L* Chloride 80 L Carbon Dioxide 23 BUN 28 H Creatinine 1.3 Glucose 87 Calcium 9.4 Cardiac Enzymes 08/14/22 Range/Units 09:40 Total Creatine Kinase 369 H (54-186) U/L Liver Function 08/14/22 Range/Units 09:40 Total Bilirubin 2.9 H (0.1-1.5) mg/dL AST 47 H (12-35) U/L ALT 31 (4-50) U/L Alkaline Phosphatase 88 (40-150) U/L Albumin 5.0 (3.3-5.0) g/dL Assessment and Plan Assessment and plan (1) Substance abuse: Problem comment: History of cannabis and alcohol abuse. He reports no cannabis use in 1-2 weeks and no alcohol use in 5 days. Status: Acute (2) Anxiety: Problem comment: Severe acute on chronic Status: Acute (3) Hyponatremia: Status: Acute (4) Cyclical vomiting: Status: Acute (5) Acute hypokalemia: Status: Acute (6) Agitation: Status: Acute (7) Hyperventilation: Status: Acute (8) Movement disorder: Problem comment: Patient exhibiting gross motor movements which appear to be more like restlessness than tardive dyskinesia or tremor. He also does have a mild fine tremor in his hands separate of his gross truncal and arm and leg movements Status: Acute Plan 26-year-old male with longstanding history of severe anxiety, cyclic vomiting, cannabis and alcohol abuse now presenting with a 5 day history of recurrent vomiting, shaking, severe restlessness, tachycardia, hyperventilation. Factors contributing to this current situation are likely multiple. He certainly is exhibiting severe anxiety with hyperventilation, ongoing cyclic vomiting, a chronic problem for him. His presentation now is typical for his frequent ER visits over the past years but he is in much worse shape today. Other considerations that are less likely include a toxidrome from overdose of medication or recreational drugs or withdrawal of medication or recreational drugs. He reports having no cannabis, alcohol, antidepressants, venlafaxine in the past 5 days. He reports he has been unable to keep anything down in terms of medication though he also tried to take Vistaril and Benadryl which are occasionally helpful for him. He also vomited after taking these medicines. He does not clinically appear to have tardive dyskinesia though he has had a couple Compazine suppositories this week and received Reglan and Zyprexa in the emergency department. He could have a serotonin syndrome though he has been off of serotonergic drugs for several days making this less likely. He is very dehydrated with low sodium and potassium as a consequence of his poor oral intake and recurrent vomiting. No obvious other illness or infection to explain his symptoms at this time. Continue to monitor. At this time I would like to use benzodiazepines to sedate him enough to get to sleep, stop his vomiting and severe restlessness and allow us to correct his dehydration and electrolytes with IV fluids. Then reassess. Cautiously reintroduce other symptomatic treatments including Benadryl or Vistaril, Zyprexa or Compazine and venlafaxine as he is clinically improving. Patient has been agitated enough that he will be one-to-one nursing ratio for now. Total time spent is 75 minutes, 50 minutes in coordination of care and discussing with patient and other providers management of his severe agitation, restlessness, anxiety, vomiting
[2022-08-14 16:45] LABS: Chloride* 91 mmol/L (96-114)
[2022-08-14 16:46] LABS: Potassium* 3.3 mmol/L (3.6-5.1)
[2022-08-14 16:48] LABS: Est. Creatinine Clearance* 122.87; Estimated Glomerular Filt Rate 106 ml/min
[2022-08-14 16:49] LABS: Blood Urea Nitrogen* 22 mg/dL (5-24); Calcium* 8.4 mg/dL (8.4-10.6); Carbon Dioxide* 23 mmol/L (20-32); Glucose* 85 mg/dL (60-115)
[2022-08-14 16:54] LABS: Sodium* 123 mmol/L (135-149)
[2022-08-14 18:01] LABS: Thyroid Stimulating Hormone* 0.121 uIU/mL (0.270-4.20)
--- NOTE | 2022-08-14 18:19 | PC.NURSE ---
Addendum entered by Alber Christine RN 08/14/22 19:22: clonidine patch on right upper chest Original Note: End of shift pt came to floor with nausea and vomiting, diarrhea, restlessness, hyperventilation, shakiness.? he has severe recurrent cyclic vomiting and anxiety. he was unsteady when up. he was very restless and his a/c SL went bad from moving and puling on IV tubbing/ IV Ativan was given and repeated in 30 minutes per md instructions/ he is a fall risk and alarms are on. he got Ativan and aroma patch for nausea. with relief. after 4 mg Ativan he was able to settle down. he HR was 130 on admission and respirations 40 on admission. after the 4 mg his HR and Respiration are back to normal. New SL was placed. he voided 500 mls using urinal and ua and tox was sent. he is very unsteady after Ativan and is a huge fall risk. per RN he is a 2 assist when he is up. he is on tele NSR and he is on a 1.5L FR. he likes powder aid in his water he was confused to day and month. continuous Sao2 on. lab was here and his anxiety got worse and he got 2 mg IV Ativan. MD dan stopped in several times and was updates. he does sleep well with he Ativan. 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 IV bolus was given 2 times. he is more confused now then on admission. he asked if he is on a space ship
[2022-08-14 18:24] LABS: Magnesium* 2.2 mg/dL (1.5-2.6)
[2022-08-14 18:41] LABS: Troponin I* 0.06 ng/mL (0.01-0.04)
[2022-08-14] MEDS: SODIUM CHLORIDE 0.9 % (FLUSH) 10 ML SYRINGE 5 ML IVF (21:08)
[2022-08-15] VITALS (8 sets, daily range): BP systolic 98–140; BP diastolic 48–85; PULSE 65–96; RESP 16–20; TEMP 36.3–36.8; O2SAT 95–100
[2022-08-15] MEDS: LORazepam 2 MG/ML inj IVP ×4 (00:48→08:45)
--- NOTE | 2022-08-15 05:06 | PC.NURSE ---
Addendum entered by Hetal Abdullahi RN 08/15/22 06:52: no nausea or vomiting noted this shift. Original Note: [id number]: patient slept majority of the night, when patient awakens from sleep he is confused and agitated, impulsive and pulls at tele leads, continuous pulse ox and IV, moves arms and legs around in the bed reaching for things. denies hallucination but does report waking up and feeling like he was in a new place each time. patient able to be directed in some ways such as to use urinal but others times he is unable to follow direction such as when instructed to hold still and stop moving arms around/rolling in bed for blood pressure readings. patient at times makes statements such as where am I did my friend get a ride home? and other times tells database report writer he knows he is in the hospital on the med/surg floor and that he came to the ER. when patient awakens he requests water, has consumed his fluid restriction amount for the shift, offered oral cares/mouth moistener and patient declines. education provided about fluid restriction, unreceptive to education. bed alarm in place. tele has shown NSR rate in the 80s. 1:1 RN entire shift. Ativan given per EMAR.
[2022-08-15 06:30] LABS: Basophils Absolute Auto 0.02 K/uL (0.00-0.30); Basophils Percent Auto 0.2 % (0.0-3.0); Eosinophils Absolute Auto 0.07 K/uL (0.00-0.50); Eosinophils Percent Auto 0.8 % (0.0-7.0); Hematocrit 36.7 % (37.0-53.0); Hemoglobin* 12.7 gm/dL (13.5-17.5); Immature Granulocytes Abs Auto 0.07 K/uL (0.00-0.30); Immature Granulocytes Pct Auto 0.8 %; Lymphocytes Absolute Auto 2.68 K/uL (0.90-2.90); Lymphocytes Percent Auto 31.5 % (20-44); Mean Corpuscular HGB Conc 35 gm/dL (32-36); Mean Corpuscular Hemoglobin 30 pg (26-34); Mean Corpuscular Volume 87 fL (80-100); Monocytes Percent Auto 9.4 % (0.0-11.0); Neutrophils Absolute Auto 4.88 K/uL (1.7-7.0); Neutrophils Percent Auto 57.3 % (42.0-72.0); Platelet Count* 327 K/uL (140-440); RDW Coefficient of Variation % 13.1 % (11.5-15.5); Red Blood Count 4.23 m/uL (4.30-5.90); White Blood Count* 8.52 K/uL (4.50-11.00)
[2022-08-15 06:37] LABS: Slide Review Reflex No
[2022-08-15 06:54] LABS: Albumin* 3.7 g/dL (3.3-5.0)
[2022-08-15 06:57] LABS: Aspartate Amino Transferase* 51 U/L (12-35); Bilirubin Total* 1.7 mg/dL (0.1-1.5); Chloride* 100 mmol/L (96-114); Sodium* 131 mmol/L (135-149); Total Protein* 5.9 g/dL (6.0-8.3)
[2022-08-15 06:58] LABS: Alanine Aminotransferase* 28 U/L (4-50); Alkaline Phosphatase* 58 U/L (40-150); Creatine Kinase* 589 U/L (54-186)
[2022-08-15 07:00] LABS: Blood Urea Nitrogen* 16 mg/dL (5-24); Calcium* 8.4 mg/dL (8.4-10.6); Carbon Dioxide* 27 mmol/L (20-32); Creatinine* 0.9 mg/dL (0.5-1.5); Est. Creatinine Clearance* 136.52; Estimated Glomerular Filt Rate 121 ml/min; Glucose* 89 mg/dL (60-115); Potassium* 3.7 mmol/L (3.6-5.1)
[2022-08-15 07:01] LABS: Magnesium* 2.5 mg/dL (1.5-2.6)
[2022-08-15] MEDS: NICOTINE 14 mg PATCH 1 PATCH TRANSDERMA (07:01)
[2022-08-15 07:10] LABS: Troponin I* 0.02 ng/mL (0.01-0.04)
[2022-08-15 07:39] LABS: Free T4 Free Thyroxine* 1.08 ng/dL (0.70-1.85)
--- NOTE | 2022-08-15 07:43 | CRLHL7_ITS ---
For Patients: As a result of the Century Cures Act, medical imaging exams and procedure reports are released immediately into your electronic medical record. You may view this report before your referring provider. If you have questions, please contact your health care provider. INDICATION: Change in mental status TECHNIQUE: CT head without contrast. COMPARISON: None FINDINGS: CSF spaces: Within normal limits for age. Brain parenchyma: The browning-white differentiation is normal. No sign of mass, hemorrhage, or midline shift. Skull base and calvarium: The visualized paranasal sinuses and mastoid air cells demonstrate no acute or significant findings. The visualized orbits are grossly unremarkable. No skull fractures. IMPRESSION: Unremarkable noncontrast head CT. Dictated by Caio Dickens MD @ 08/15/2022 9:26:55 AM Please note that all CT scans at this facility use dose modulation, iterative reconstruction, and/or weight-based dosing when appropriate to reduce radiation dose to as low as reasonably achievable. Dictated by: Caio Dickens MD @ 08/15/2022 09:27:01 (Electronically Signed)
--- NOTE | 2022-08-15 07:43 | XR_ITS ---
Patient: YARITZA LLOYD Facility:?[facility] Patient ID:?[id number] Site Patient ID:?[id number]. Site :?1995 Study:?XRay-Chest 2 VIEWS-08/15/2022 9:03:08 AM Ordering Physician:?UNKNOWN UNKNOWN Final Report: INDICATION: Chest pain TECHNIQUE: Chest 2 views. COMPARISON: None FINDINGS: Cardiovascular and mediastinum: Heart size and vasculature are normal in caliber and appearance. Mediastinum is within normal limits. Lungs and pleural spaces: Lungs are clear. No sign of infiltrate or mass. No sign of pleural effusion. No pneumothorax. Bones and soft tissues: No significant findings. IMPRESSION: Unremarkable chest. Dictated by Caio Dickens MD @ 08/15/2022 9:05:57 AM Signed by:?Caio Dickens MD @08/15/2022 9:05:57 AM (Electronic Signature)
[2022-08-15] MEDS: SODIUM CHLORIDE 0.9 % (FLUSH) 10 ML SYRINGE 5 ML IVF (09:04)
[2022-08-15] MEDS: OLANZapine 5 MG TAB.RAPDIS PO (09:04)
[2022-08-15] MEDS: DESVENLAFAXINE SUCCINATE ER 50 MG TAB PO (09:04)
--- NOTE | 2022-08-15 09:10 | PC.NURSE ---
PT went over head CT and could not lay still. 2 mg IV P Ativan was given so we could get the test done pt was able to lay still for test. he is still confued. told me it was 2-14 today for date and it was friday. he is unsteady he is a fall risk. he is asking where i am and is there aliens here. he wanted to crawl on the wheel chair. MD was in to see. it is a struggle to get him to hold still for a blood pressure. he still is hyperventilating at times with any cares, SL is patent. Ativan does help with anxiety. and lest him rest. explained the Fluid restriction to him and he does not understand it. also he told me that he cant eat food. he said when he eat the chicken juice runs down his throat and he will throw up. he is drinking with no problems and no nausea.
--- NOTE | 2022-08-15 14:43 | PC.NURSE ---
Addendum entered by Alber Christine RN 08/15/22 15:36: pt did push the code blue button and staff assist. he got a w/c ride to ED 1520 with all belongings and paperwork Original Note: End of shift. pt has been pleasant. still confused at times SL was d/c intact. he is up with SBA. more steady today. Dec assessment was done. no pain. he had a shower today. he has discharge orders, he does not have a ride home. calling taxi for a ride home
--- NOTE | 2022-08-15 17:24 | P.DS_ITS ---
DS: Providers Provider Date Seen: 08/15/22 Date of admission: 08/14/22 13:16 Primary care physician: Deepthi Mc PA-C Admitting Clinician: Du Gutierrez MD Attending Physician on discharge: Du Gutierrez MD Date of Discharge: 08/15/22 DS: Diagnosis Discharge Diagnosis (1) Substance abuse: Status: Acute Problem details: History of cannabis and alcohol abuse. He reports no cannabis use in 1-2 weeks and no alcohol use in 5 days. (2) Anxiety: Status: Acute Problem details: Severe acute on chronic. Improved today (3) Hyponatremia: Status: Acute Problem details: Likely due to compulsive water drinking when he becomes anxious. Advised that he drink less water, switched to electrolyte containing fluids such as Gatorade or eat food with water. (4) Cyclical vomiting: Status: Acute Problem details: Currently better. Needs to get off cannabis (5) Acute hypokalemia: Status: Acute Problem details: Improved (6) Agitation: Status: Acute Problem details: Much improved (7) Hyperventilation: Status: Acute Problem details: Improved (8) Movement disorder: Status: Acute Problem details: Patient exhibiting gross motor movements which appear to be more like restlessness than tardive dyskinesia or tremor. He also does have a mild fine tremor in his hands separate of his gross truncal and arm and leg movements. Resolved DS: Summary Hospital Course Hospital Course: 26-year-old male admitted to the hospital with severe disturbance of cognitive behavioral and physiologic functioning. He presented with 5 day history of intractable vomiting, severe anxiety, hyperventilation, tachycardia, uncontrolled gross motor movements. At time of admission there was concern about a variety of possible metabolic toxicities causing his metabolic encephalopathy. No definite cause is identified. Considerations included intoxication or withdrawal from a number of prescribed and recreational substances of abuse, serotonin syndrome, tardive dyskinesia, other neurologic, infectious, metabolic disorder. Hospital evaluation included multiple abnormal lab tests. He had hyponatremia, hypokalemia, lab parameters for dehydration, borderline elevation of troponin, a suppressed TSH with a normal free T4, elevated lactate. He had a normal chest x-ray and head CT. Electrocardiogram findings showed nonspecific changes. He was treated with IV fluids to correct his electrolytes and address is dehydration. He had aggressive sedation with lorazepam for his agitation, hyperventilation, tachycardia(140s), movement disorder. Large dose of lorazepam eventually led to enough sedation that he could sleep and with that he improved in all regards. He did have some acute confusion, disorientation and evidence of delirium on and off. Today that is completely resolved. Laboratory parameters improved as well. He continued to compulsively drink fluids. His troponin went to normal. He had online tele mental health evaluation. This led to the conclusion that he could be manages an outpatient with outpatient follow-up arranged. Also advised to manage chemical dependency problems. This was thought to be possibly the primary issue with severe anxiety and cyclic vomiting being secondary. No conclusive diagnosis of another illness or neurologic condition to explain his encephalopathy was made. Outpatient follow-up in clinic to address the following issues: Laboratory abnormalities outlined above including recheck of basic metabolic panel, and delayed follow-up of thyroid function. Likely his thyroid function is sick euthyroid rather than thyroiditis or other autoimmune thyroid disease. His nonspecific EKG abnormalities and elevated troponin were thought to be possibly related to fairly severe disturbance of his vital signs at the time of admission possibly due to toxicity from unknown medication use or abuse. Outpatient followup to assess whether further cardiac evaluation is warranted. I would strongly urged evaluation if he was having cardiac specific symptoms such as chest pain or dyspnea or syncope. Consideration of echocardiogram or stress testing would be appropriate. He needs mental health follow-up and substance abuse follow-up. Will discharge min same medicines he has been on for some time but I have asked him to stop his Vyvanse which looked like it could have contributed to his clinical appearance of stimulant toxicity yesterday. Status at Discharge Cognitive/behavioral status at discharge: Back to baseline Functional status at discharge: independent ambulation Overall status at discharge: patient is back to baseline Time Spent with Patient Time attestation: Total time spent providing and/or coordinating discharge services: Time spent: Greater than 30 minutes Exam Narrative: Exam Narrative: He is alert and appears in no distress. He is able to carry on a conversation. He is pleasant and cooperative. He is able to give history that he was unable to give yesterday. He is no longer hyperventilating. He is fairly restless but not extreme to the point of movement disorder as he had yesterday. No obvious facial asymmetry. Eyes are normal. No nystagmus. Extraocular movements are full. No tremor. He moves all 4 extremities well. Const: Vital Signs, click to edit/add: Vital Signs - 24 hr 08/14/22 19:20 08/14/22 19:20 08/14/22 21:03 Temperature 97.9 F Pulse Rate 75 Pulse Rate [Pulse Oximeter] 78 Respiratory Rate 18 18 Blood Pressure [Le ft Arm] 108/95 H 122/67 Pulse Oximetry 98 97 Oxygen Delivery Me thod Room Air Room Air 08/14/22 23:00 08/14/22 23:00 08/14/22 23:00 Temperature Pulse Rate 74 Pulse Rate [Pulse Oximeter] 70 Respiratory Rate 18 Blood Pressure [Le ft Arm] Pulse Oximetry 97 Oxygen Delivery Me thod 08/14/22 23:00 08/15/22 00:22 08/15/22 02:34 Temperature 98 F Pulse Rate 69 Pulse Rate [Pulse Oximeter] 80 90 Respiratory Rate 18 20 Blood Pressure [Le ft Arm] 99/72 Pulse Oximetry 97 98 Oxygen Delivery Me thod Room Air Room Air 08/15/22 05:04 08/15/22 07:36 08/15/22 07:36 Temperature 98.3 F Pulse Rate 71 Pulse Rate [Pulse Oximeter] 96 Respiratory Rate 20 Blood Pressure [Le ft Arm] 140/63 H Pulse Oximetry 100 97 Oxygen Delivery Me thod Room Air 08/15/22 07:36 08/15/22 07:41 08/15/22 07:46 Temperature 97.5 F L Pulse Rate Pulse Rate [Pulse Oximeter] 73 73 65 Respiratory Rate 18 18 16 Blood Pressure [Le ft Arm] 118/59 L 98/48 L Pulse Oximetry 97 96 Oxygen Delivery Me thod Room Air Room Air 08/15/22 11:24 08/15/22 13:59 Temperature 97.3 F L 97.3 F L Pulse Rate 71 Pulse Rate [Pulse Oximeter] 84 Respiratory Rate 16 16 Blood Pressure [Le ft Arm] 134/85 Pulse Oximetry 95 Oxygen Delivery Me thod Room Air Documenting provider has reviewed patient's vital signs: yes DS: Data Data Completed and Pending Labs on day of discharge: Labs from last 24 hours 08/15/22 08/15/22 08/15/22 06:19 06:19 06:19 WBC RBC Hgb Hct MCV MCH MCHC RDW Coeff of Belia Plt Count Neut % (Auto) Lymph % (Auto) [place] % (Auto) Eos % (Auto) Baso % (Auto) Neut # (Auto) Lymph # (Auto) [place] # (Auto) Eos # (Auto) Baso # (Auto) Sodium 131 L Potassium 3.7 Chloride 100 Carbon Dioxide 27 BUN 16 Creatinine 0.9 Estimated Creat Clear 136.52 Estimated GFR 121 Glucose 89 Calcium 8.4 Magnesium 2.5 Total Bilirubin 1.7 H Direct Bilirubin 0.0 AST 51 H ALT 28 Alkaline Phosphatase 58 Total Creatine Kinase 589 H Troponin I 0.02 Total Protein 5.9 L Albumin 3.7 TSH Free T4 1.08 08/15/22 08/14/22 08/14/22 06:19 16:24 09:40 WBC 8.52 RBC 4.23 L Hgb 12.7 L Hct 36.7 L MCV 87 MCH 30 MCHC 35 RDW Coeff of Belia 13.1 Plt Count 327 Neut % (Auto) 57.3 Lymph % (Auto) 31.5 [place] % (Auto) 9.4 Eos % (Auto) 0.8 Baso % (Auto) 0.2 Neut # (Auto) 4.88 Lymph # (Auto) 2.68 [place] # (Auto) 0.80 Eos # (Auto) 0.07 Baso # (Auto) 0.02 Sodium Potassium Chloride Carbon Dioxide BUN Creatinine Estimated Creat Clear Estimated GFR Glucose Calcium Magnesium 2.2 Total Bilirubin Direct Bilirubin AST ALT Alkaline Phosphatase Total Creatine Kinase Troponin I 0.06 H* Total Protein Albumin TSH 0.121 L Free T4 Discharge Plan Discharge Disposition: Home, Self-Care Date of Admission: 08/14/22 13:16 Attending Provider on Discharge: Du Gutierrez Primary Care Provider: Deepthi Mc Condition: Improved Anticipated Discharge Date/Time: 08/15/22 13:33 Discharge Medications: Continued lorazepam 0.5 mg tablet 0.5 mg PO DAILY PRN prochlorperazine 25 mg suppository 25 mg [place] Q12H PRN lisinopril 10 mg tablet 10 mg PO DAILY hydroxyzine HCl 25 mg tablet 25 - 50 mg PO Q6H PRN clonidine 0.3 mg/24 hr patch weekly 1 patch topical MO Rx Instructions: WEEKLY ON MONDAYS ondansetron 4 mg tablet,disintegrating 4 mg PO Q8H PRN Label Comments: DISSOLVE 1 TABLET ON THE TONGUE EVERY 8 HOURS NEEDED FOR NAUSEA OR VOMITING desvenlafaxine succinate 50 mg tablet extended release 24 hr 50 mg PO DAILY Rx Instructions: TOTAL DOSE = 75MG desvenlafaxine succinate 25 mg tablet extended release 24 hr 25 mg PO DAILY Rx Instructions: TOTAL DOSE = 75 MG trazodone 50 mg tablet 25 mg PO HS PRN folic acid 1 mg tablet 1 mg PO DAILY melatonin 10 mg capsule 10 mg PO HS Discontinued Vyvanse 20 mg capsule 20 mg PO DAILY PRN Discharge Orders: Discharge Order (Routine); Ordered 08/15/22 Ordered By: Du Gutierrez Patient Education: Hyponatremia (DC), Hypokalemia (DC), Abuse of Alcohol (DC), Cannabis Abuse (DC), Cyclic Vomiting Syndrome (DC) Additional Instructions: The [facility], online mental health evaluation, arranged appointment for you with [facility] in [place] for Friday at 3:00 p.m. Activity Level: No Restrictions Discharge Diet: Regular Follow Up Appointments: Deepthi Mc PA-C [Primary Care Provider] - 08/22/22 2:00 pm (next week Labs to check next week: TSH, troponin, basic metabolic panel) Forms: [employer] Info Instructions
== END 2022-08-15 15:22 | disposition home or self-care (01) | DRG 775 ==
LOC: ED 12:24 → MEDSURG 13:16
PROVIDERS: Admitting Provider Family Medicine; Emergency Provider Student in an Organized Health Care Education/Training Program; PCP Physician Assistant Medical; Visit Provider Family Medicine
DX: F12.20 Cannabis dependence, uncomplicated (principal); F10.10 Alcohol abuse, uncomplicated; E87.1 Hypo-osmolality and hyponatremia; E86.0 Dehydration; F41.1 Generalized anxiety disorder; F31.81 Bipolar II disorder; F45.9 Somatoform disorder, unspecified; R11.15 Cyclical vomiting syndrome unrelated to migraine; E87.6 Hypokalemia; R45.1 Restlessness and agitation; R06.4 Hyperventilation; G25.9 Extrapyramidal and movement disorder, unspecified; G47.00 Insomnia, unspecified; F17.210 Nicotine dependence, cigarettes, uncomplicated
CPT/HCPCS: 36415; 70450; 71046; 80048; 80053; 80076; 80306; 82077; 82550; 82803; 83605; 83690; 83735; 84439; 84443; 84484; 85025; 87635; 93005; 94761; 99283; 99285; A9270; J2060; J2765; J3360; J3480; J7030; S4990

== ENCOUNTER 2023-04-11 14:56 | Emergency (ER) | payer BC, SELFPAY ==
[2023-04-11 15:19] VITALS: BP 173/123; PULSE 64; RESP 16; O2SAT 100; BMI 29.8
--- NOTE | 2023-04-11 15:34 | ED.NURSE ---
Pt continuously drinking water and proceeds to vomit it back up. RN asks pt to stop drinking water until vomiting is under control. Pt proceeds to drink water in front of RN. RN asks to move water bottles to other side of room. Pt states don't!. Pt's mother at bedside states, Claudio. updated. Pt again told per verbal request of MD that if pt continues to drink water, pt will not be able to stop vomiting. Pt seen on security cameras drinking water. Pt proceeds to go to sink in room and stick fingers down his throat. updated.
--- NOTE | 2023-04-11 15:39 | ED_ITS ---
HPI - General Adult General Time Seen by Provider: 15:39 Date Seen: 04/11/23 Chief complaint: Nausea/Vomiting Stated complaint: Vomiting Time Seen by Provider: 04/11/23 14:59 Source: patient, family, RN notes reviewed and old records reviewed Mode of arrival: ambulatory Limitations: no limitations History of Present Illness HPI narrative: Antonio is a 27-year-old male with cyclical vomiting coming in with vomiting since 6:00 a.m. this morning. He tried Zofran and prochlorperazine at home this morning. He last reportedly use marijuana yesterday. Does endorse drinking alcohol again. Jaw she has been through treatment for this. He was last here in July and was hospitalized with significant electrolyte abnormalities. He has had some lower abdominal pain with this. His mom presents with him. She states they are just worried about him getting dehydrated. Antonio was actively drinking water during his triage intake and then inducing vomiting. Nursing sta ff had to ask him to quit drinking excessive amounts of water. I did review with him that is counterproductive to drink large copious volumes of water when he is just going to throw them back up. No fevers chills, diarrhea. This seems to be his routine cyclical vomiting symptoms. With his mom present, did discuss with Antonio that he needed to go back to treatment. His mom states she believes he is aware of that. Antonio did not acknowledge my statement. Antonio very nicely asked if he could do Reglan, 50 of IV Benadryl and 2 mg IV Ativan. I did discuss with him that 50 IV is different than 50 mg oral. We should be able to get by with 25 mg IV Benadryl. We did establish an IV this time as when he was here in July his electrolytes were quite off. I a have reviewed with both he and his mom that we will do IV format this time, check electrolytes. They do understand if we are starting to see him in a recurrent pattern, then we are going to need to go back to some type of process were we only do injectable IM medications as we used to do when we were seen him frequently. I have stressed to them that he really needs treatment. Related Data Home Medications Medication Instructions Recorded Confirmed clonidine 0.3 mg/24 hr weekly 1 patch topical MO 02/13/22 04/11/23 transdermal patch desvenlafaxine succinate 50 mg 50 mg PO DAILY 02/13/22 04/11/23 tablet,extended release 24 hr hydroxyzine HCl 25 mg tablet 25 - 50 mg PO Q6H PRN 02/13/22 04/11/23 lisinopril 10 mg tablet 10 mg PO DAILY 02/13/22 04/11/23 lorazepam 0.5 mg tablet 0.5 mg PO DAILY PRN 02/13/22 04/11/23 ondansetron 4 mg disintegrating 4 mg PO Q8H PRN 02/13/22 04/11/23 tablet prochlorperazine 25 mg rectal 25 mg [place] Q12H PRN 02/13/22 04/11/23 suppository desvenlafaxine succinate 25 mg 25 mg PO DAILY 08/14/22 04/11/23 tablet,extended release 24 hr folic acid 1 mg tablet 1 mg PO DAILY 08/14/22 04/11/23 melatonin 10 mg capsule 10 mg PO HS 08/14/22 04/11/23 trazodone 50 mg tablet 25 mg PO HS PRN 08/14/22 04/11/23 Previous Rx's Medication Instructions Recorded olanzapine 5 mg tablet (Zyprexa) 5 mg PO BID PRN #10 tabs 04/11/23 Allergies Allergy/AdvReac Type Severity Reaction Status Date / Time haloperidol [From Haldol] Allergy Verified 04/11/23 15:23 Review of Systems Status of ROS: Reports: 6 or more systems reviewed and unremarkable except as noted in History and below PFSH [facility] Medical History Normal colonoscopy Normal esophagogastroduodenoscopy (EGD) ?Z01.89 - Encounter for other specified special examinations (ICD-10) Cyclical vomiting ?R11.15 - Cyclical vomiting syndrome unrelated to migraine (ICD-10) Anxiety ?F41.9 - Anxiety disorder, unspecified (ICD-10) Substance abuse ?F19.10 - Other psychoactive substance abuse, uncomplicated (ICD-10) Surgical History History of myringotomy ?Z98.890 - Other specified postprocedural states (ICD-10) Social History Narrative: Patient lives in his own apartment in [place]. His mother is healthcare power of human performance professor and code status is full. History of alcohol and cannabis abuse. Current cigarette smoking. Highest level of school completed/degree received: Associate degree: occupational, technical, vocational program Smoking Status: Current every day smoker What tobacco products do you use: cigarettes Smoking packs per day: 0.5 Smoking cigarettes per day: 10.0 Years smoked: 10 Smoking pack-years: 5.00 Smoking quit date/years: >15 years ago Do you use any of these nicotine containing products: E-Cigarettes and Vaping Products Second hand tobacco smoke exposure: No How often do you have a drink containing alcohol: 4 or more times a week How many standard drinks containing alcohol do you have on a typical day: 5 or 6 How often do you have six or more drinks on one occasion: Daily or almost daily AUDIT-C Alcohol total score: 10 Non-prescribed substance use: marijuana (any form) Caffeine: Yes service: No Exam Const: Vital Signs, click to edit/add: Vital Signs - 24 hr 04/11/23 15:19 Pulse Rate [Pulse Oximeter] 64 Respiratory Rate 16 Blood Pressure [Ri ght Upper Arm] 173/123 H Pulse Oximetry 100 Oxygen Delivery Me thod Room Air Is a Antonio is a 27-year-old male that is up pacing the room at times, then lies on the bed. He is alert interactive, speech is normal. Do see him gag a bit but no active vomiting. Sclera clear. CV regular rate and rhythm, no murmur, normal S1 and S2. Lungs are clear with good air entry no wheezing crackles. Abdomen is soft, no rebound or guarding, nontender, no organomegaly or masses. Documenting provider has reviewed patient's vital signs: yes Course Course ED Course: We will establish an IV, start a L of normal saline, 25 mg IV Benadryl, will give him the 2 mg IV Ativan as well as 10 mg IV Reglan. He understands that Ativan is not going to become a regular process for us nor is IV modalities. We are going to check electrolytes and baseline lab since we have not seen him for while. If his electrolytes are normal, next step will be Zyprexa for me. If Antonio is becoming a recurrent repeat user of the ED for his cyclical vomiting, do think it would be beneficial to set up a program likely had before where he got IM medications only. I do not see any need for any imaging as this is most definitely his cyclical vomiting. Reevaluation(s) Time of Reevaluation #1: 17:33 Reevaluation #1: Have reviewed with Antonio and his mom that his electrolytes and CBC are completely normal. He is still feeling symptomatic. He is not dehydrated. We discussed use of Zyprexa and he would like an IM dose. We will do 10 mg IM, he is tolerated Zyprexa extremely well in the past. At this point we are going to transition to outpatient management. He seems like he is finally willing to admit that he cannot tolerate the marijuana use. I have talked to them about contacting the county to work on treatment again. He would like some oral Zyprexa take at home which we can do. He states he has his other medicines to use, does not need any refills on anything like Zofran. Vital Signs Vital signs: Initial Vital Signs Temperature Source Temporal Artery Scan 04/11/23 15:19 Pulse Rate 64 04/11/23 15:19 Respiratory Rate 16 04/11/23 15:19 Blood Pressure 173/123 H 04/11/23 15:19 Blood Pressure Mean 139 H 04/11/23 15:19 Blood Pressure Position Supine 04/11/23 15:19 Pulse Oximetry 100 04/11/23 15:19 Oxygen Delivery Method Room Air 04/11/23 15:19 Vital Signs Pulse Rate 64 04/11/23 15:19 Respiratory Rate 16 04/11/23 15:19 Blood Pressure 173/123 H 04/11/23 15:19 Pulse Oximetry 100 04/11/23 15:19 Oxygen Delivery Method Room Air 04/11/23 15:19 Pulse Rate 64 04/11/23 15:19 Respiratory Rate 16 04/11/23 15:19 Blood Pressure 173/123 H 04/11/23 15:19 Pulse Oximetry 100 04/11/23 15:19 Oxygen Delivery Method Room Air 04/11/23 15:19 Medical Decision Making Lab Data Lab results reviewed: Yes I reviewed the patient's lab results Labs: Lab Results 04/11/23 Range/Units 15:30 WBC 9.91 (4.50-11.00) K/uL RBC 4.93 (4.30-5.90) m/uL Hgb 14.7 (13.5-17.5) gm/dL Hct 43.5 (37.0-53.0) % MCV 88 (80-100) fL MCH 30 (26-34) pg MCHC 34 (32-36) gm/dL RDW Coeff of Belia 13.1 (11.5-15.5) % Plt Count 339 (140-440) K/uL Neut % (Auto) 88.3 H (42.0-72.0) % Lymph % (Auto) 8.1 L (20-44) % [place] % (Auto) 3.4 (0.0-11.0) % Eos % (Auto) 0.0 (0.0-7.0) % Baso % (Auto) 0.1 (0.0-3.0) % Neut # (Auto) 8.80 H (1.7-7.0) K/uL Lymph # (Auto) 0.80 L (0.90-2.90) K/uL [place] # (Auto) 0.30 (0.00-0.90) K/UL Eos # (Auto) 0.00 (0.00-0.50) K/uL Baso # (Auto) 0.01 (0.00-0.30) K/uL Abs Immat Gran (auto) 0.01 (0.00-0.30) K/uL Imm/Tot Granulo (auto) 0.1 % Sodium 136 (135-149) mmol/L Potassium 4.0 (3.6-5.1) mmol/L Chloride 101 (96-114) mmol/L Carbon Dioxide 23 (20-32) mmol/L Anion Gap 12 (7-15) mEq/L BUN 16 (5-24) mg/dL Creatinine 0.8 (0.5-1.5) mg/dL Estimated Creat Clear 152.24 Estimated GFR 124 ml/min Glucose 140 H (60-115) mg/dL Lactate 1.7 (0.5-1.9) mmol/L Calcium 10.4 (8.4-10.6) mg/dL Total Bilirubin 1.0 (0.1-1.5) mg/dL AST 33 (12-35) U/L ALT 26 (4-50) U/L Alkaline Phosphatase 90 (40-150) U/L Total Protein 7.5 (6.0-8.3) g/dL Albumin 4.7 (3.3-5.0) g/dL Ethyl Alcohol < 0.01 L (0.01-0.03) % Critical Care Time Critical Care Time Critical Care Time: No Discharge Plan Discharge Clinical Impression: Cyclical vomiting Patient Disposition: Home, Self-Care Condition: Stable Instructions: Cyclic Vomiting Syndrome (ED) Additional Instructions: Recommend follow-up in clinic as soon as you are able to get in, would prefer this be within the next week. You need to contact the county, start the process for chemical dependency evaluation for treatment again. Can use her medicines at home that you normally would, have sent in some Zyprexa to add into the regimen to help. You need to refrain from alcohol and marijuana use. Activity Level: No Restrictions Discharge Diet: Regular Prescriptions: New olanzapine [Zyprexa] 5 mg tablet 5 mg PO BID PRNQty: 10 0RF No Action lorazepam 0.5 mg tablet 0.5 mg PO DAILY PRN prochlorperazine 25 mg suppository 25 mg [place] Q12H PRN lisinopril 10 mg tablet 10 mg PO DAILY hydroxyzine HCl 25 mg tablet 25 - 50 mg PO Q6H PRN clonidine 0.3 mg/24 hr patch weekly 1 patch topical MO Hold Instructions: Pt denies Rx Instructions: WEEKLY ON MONDAYS ondansetron 4 mg tablet,disintegrating 4 mg PO Q8H PRN Patient Comments: DISSOLVE 1 TABLET ON THE TONGUE EVERY 8 HOURS NEEDED FOR NAUSEA OR VOMITING desvenlafaxine succinate 50 mg tablet extended release 24 hr 50 mg PO DAILY Rx Instructions: TOTAL DOSE = 75MG desvenlafaxine succinate 25 mg tablet extended release 24 hr 25 mg PO DAILY Rx Instructions: TOTAL DOSE = 75 MG trazodone 50 mg tablet 25 mg PO HS PRN folic acid 1 mg tablet 1 mg PO DAILY melatonin 10 mg capsule 10 mg PO HS Follow Up/Referrals: Deepthi Mc PA-C [Primary Care Provider] - Stand Alone Forms: [employer] Info Instructions
[2023-04-11 15:51] LABS: Lactate* 1.7 mmol/L (0.5-1.9)
[2023-04-11 15:54] LABS: Basophils Absolute Auto 0.01 K/uL (0.00-0.30); Basophils Percent Auto 0.1 % (0.0-3.0); Hematocrit 43.5 % (37.0-53.0); Hemoglobin* 14.7 gm/dL (13.5-17.5); Immature Granulocytes Abs Auto 0.01 K/uL (0.00-0.30); Immature Granulocytes Pct Auto 0.1 %; Lymphocytes Percent Auto 8.1 % (20-44); Mean Corpuscular HGB Conc 34 gm/dL (32-36); Mean Corpuscular Hemoglobin 30 pg (26-34); Mean Corpuscular Volume 88 fL (80-100); Monocytes Percent Auto 3.4 % (0.0-11.0); Neutrophils Percent Auto 88.3 % (42.0-72.0); Platelet Count* 339 K/uL (140-440); RDW Coefficient of Variation % 13.1 % (11.5-15.5); Red Blood Count 4.93 m/uL (4.30-5.90); White Blood Count* 9.91 K/uL (4.50-11.00)
[2023-04-11 15:56] LABS: Slide Review Reflex No
[2023-04-11] MEDS: 0.9 % SODIUM CHLORIDE 1000 ml 1,000 ML IV (16:10)
[2023-04-11] MEDS: LORazepam 2 MG/ML inj IVP (16:11)
[2023-04-11] MEDS: diphenhydrAMINE 50 MG/ML inj 25 MG IVP (16:11)
[2023-04-11] MEDS: METOCLOPRAMIDE HCL 10 MG in 0.9 % SODIUM CHLORIDE 100 ml 100 ML 306 MG IVPB (16:11)
[2023-04-11 17:24] LABS: Albumin* 4.7 g/dL (3.3-5.0); Chloride* 101 mmol/L (96-114)
[2023-04-11 17:25] LABS: Sodium* 136 mmol/L (135-149)
[2023-04-11 17:27] LABS: Alkaline Phosphatase* 90 U/L (40-150); Anion Gap 12 mEq/L (7-15); Aspartate Amino Transferase* 33 U/L (12-35); Blood Urea Nitrogen* 16 mg/dL (5-24); Carbon Dioxide* 23 mmol/L (20-32); Creatinine* 0.8 mg/dL (0.5-1.5); Est. Creatinine Clearance* 152.24; Estimated Glomerular Filt Rate 124 ml/min; Glucose* 140 mg/dL (60-115); Total Protein* 7.5 g/dL (6.0-8.3)
[2023-04-11 17:28] LABS: Alanine Aminotransferase* 26 U/L (4-50); Calcium* 10.4 mg/dL (8.4-10.6); Ethanol* < 0.01 % (0.01-0.03)
[2023-04-11] MEDS: OLANZapine 5 MG/ML inj 10 MG IM (17:48)
== END 2023-04-11 17:50 | disposition home or self-care (01) ==
PROVIDERS: Emergency Provider Family Medicine; PCP Physician Assistant Medical
DX: R11.15 Cyclical vomiting syndrome unrelated to migraine (principal)
CPT/HCPCS: 36415; 80053; 82077; 83605; 85025; 96365; 96372; 96375; 99284; J1200; J2060; J2765; J7030; S0166

== ENCOUNTER 2023-07-23 15:42 | Emergency (ER) | payer BC, SELFPAY ==
[2023-07-23 16:09] VITALS: BP 162/115; PULSE 74; RESP 24; TEMP 35.9; O2SAT 100; BMI 31.2
--- NOTE | 2023-07-23 16:44 | ED_ITS ---
HPI - General Adult General Date Seen: 07/23/23 Chief complaint: Nausea/Vomiting Stated complaint: Vomiting Time Seen by Provider: 07/23/23 16:15 History of Present Illness HPI narrative: 27-year-old male with a history of cyclic vomiting syndrome, alcohol use dis order, cannabis use disorder, presents to the ER with his mother today for evaluation of intractable nausea and vomiting. He has a known history of cyclic vomiting syndrome. He does mother are well aware of it. He feels like he is having other episode of CVS that started about 4:00 a.m. this morning. He thinks his trigger was that he drank more alcohol yesterday than he normally does. He has had many episodes of nonbilious, nonbloody emesis today. Some upper abdominal pain as well. No diarrhea. No fever. He tried to take his at-home Compazine but it was ineffective. Symptoms are similar to his previous episodes of CVS. He indicates to me that it usually takes Zofran 8 mg, Benadryl 50 mg, and Ativan 2 mg I a.m. to help bring his symptoms under control. In discussing with the nurses who are aware his previous ear visits, he has had a previous ER care plan for cyclic vomiting syndrome, and is care plan use to include intramuscular meds only. During his most recent visit, last March he was treated with the IV meds and fluids. He verbalizes that he thinks he needs to go to treatment for alcohol abuse. His mother also mentions daily marijuana use. She feels like it has been hard for him to stay sober for the past few months, because he moved home to live with his mother and stepfather. Living at home leaves him with nothing to do. He then tends to use. He verbally cuts his mother off when she is talking about his use. Related Data Home Medications Medication Instructions Recorded Confirmed clonidine 0.3 mg/24 hr weekly 1 patch topical MO 02/13/22 04/11/23 transdermal patch desvenlafaxine succinate 50 mg 50 mg PO DAILY 02/13/22 04/11/23 tablet,extended release 24 hr hydroxyzine HCl 25 mg tablet 25 - 50 mg PO Q6H PRN 02/13/22 04/11/23 lisinopril 10 mg tablet 10 mg PO DAILY 02/13/22 04/11/23 lorazepam 0.5 mg tablet 0.5 mg PO DAILY PRN 02/13/22 04/11/23 ondansetron 4 mg disintegrating 4 mg PO Q8H PRN 02/13/22 04/11/23 tablet prochlorperazine 25 mg rectal 25 mg ME Q12H PRN 02/13/22 04/11/23 suppository desvenlafaxine succinate 25 mg 25 mg PO DAILY 08/14/22 04/11/23 tablet,extended release 24 hr folic acid 1 mg tablet 1 mg PO DAILY 08/14/22 04/11/23 melatonin 10 mg capsule 10 mg PO HS 08/14/22 04/11/23 trazodone 50 mg tablet 25 mg PO HS PRN 08/14/22 04/11/23 Previous Rx's Medication Instructions Recorded olanzapine 5 mg tablet (Zyprexa) 5 mg PO BID PRN #10 tabs 04/11/23 Allergies Allergy/AdvReac Type Severity Reaction Status Date / Time haloperidol [From Haldol] Allergy Verified 07/23/23 16:09 [facility] Medical History Normal colonoscopy Normal esophagogastroduodenoscopy (EGD) ?Z01.89 - Encounter for other specified special examinations (ICD-10) Cyclical vomiting ?R11.15 - Cyclical vomiting syndrome unrelated to migraine (ICD-10) Anxiety ?F41.9 - Anxiety disorder, unspecified (ICD-10) Substance abuse ?F19.10 - Other psychoactive substance abuse, uncomplicated (ICD-10) Surgical History History of myringotomy ?Z98.890 - Other specified postprocedural states (ICD-10) Social History Narrative: Patient lives in his own apartment in [place]. His mother is healthcare power of assistant prosecuting attorney and code status is full. History of alcohol and cannabis abuse. Current cigarette smoking. Highest level of school completed/degree received: Associate degree: occupational, technical, vocational program Smoking Status: Current every day smoker What tobacco products do you use: cigarettes Smoking packs per day: 0.5 Smoking cigarettes per day: 10.0 Years smoked: 10 Smoking pack-years: 5.00 Smoking quit date/years: >15 years ago Do you use any of these nicotine containing products: E-Cigarettes and Vaping Products Second hand tobacco smoke exposure: No How often do you have a drink containing alcohol: 4 or more times a week How many standard drinks containing alcohol do you have on a typical day: 5 or 6 How often do you have six or more drinks on one occasion: Daily or almost daily AUDIT-C Alcohol total score: 10 Non-prescribed substance use: marijuana (any form) Caffeine: Yes service: No Exam Narrative: Exam Narrative: Constitutional: As I enter the room the patient is standing with his back to me leaning over the sink in his room, making loud retching noises but not vomiting. He is somewhat anxious and restless but is able lay down in bed. He is able to talk to me briefly and give me some brief history, including is normal medication regimen. Overall, he Appears well-developed and well-nourished. Alert. Nauseous and restless but is able to be conversant HENT: Head: Atraumatic. Nose: Nose normal. Mouth/Throat: Oral mucosa is clear but somewhat dry, not desiccated or cracked. no trismus. Pharynx normal. Tonsils symmetric. No tonsillar enlargement, erythema, or exudate. Eyes: Conjunctivae normal. EOM normal. Pupils equal, round, and reactive to light. No scleral icterus. Neck: Normal range of motion. Neck supple. No tracheal deviation present. Cardiovascular: Normal rate, regular rhythm. No gallop. No friction rub. No murmur heard. Pulmonary/Chest: Effort normal. No stridor. No respiratory distress. No wheezes. No rales. No rhonchi . No tenderness. Abdominal: Soft. Bowel sounds normal. No distension. No mass. No tenderness. No rebound. No guarding. Musculoskeletal: RUE: Normal range of motion. No tenderness. No deformity LUE: Normal range of motion. No tenderness. No deformity RLE: Normal range of motion. No edema. No tenderness. No deformity LLE: Normal range of motion. No edema. No tenderness. No deformity Neurological: Alert and oriented to person, place, and time. Normal strength. CN II-VII intact. No sensory deficit. GCS eye subscore is 4. GCS verbal subscore is 5. GCS motor subscore is 6. Normal coordination Skin: Skin is warm and dry. No rash noted. No pallor. Normal capillary refill. Psychiatric: Restless, endorses nausea. Loudly dry heaving as I enter the room. Does endorse fairly regular alcohol use. He says he usually takes a couple of days to go through at 0.75 L of hard alcohol. Yesterday he drank more than normal. He thinks that was his trigger for nausea and vomiting was the heavier than normal alcohol is use yesterday. He also endorses that he is smoking marijuana regularly. Const: Vital Signs, click to edit/add: Vital Signs - 24 hr 07/23/23 16:09 Temperature 96.7 F L Pulse Rate [Pulse Oximeter] 74 Respiratory Rate 24 Blood Pressure [Ri ght Upper Arm] 162/115 H Pulse Oximetry 100 Oxygen Delivery Me thod Room Air Course Course ED Course: Recheck-feeling ?a bit? better after Ativan, Zofran, Benadryl. Requests ?haloperidol? but actually that is the same as Haldol, to which he reports an intolerance. Will hold off on Haldol and try droperidol instead. Reevaluation(s) Reevaluation #1: Recheck-feeling much less nauseous after droperidol. Still restless. Does not feel call enough to go home. Will order 1 more mg of Ativan IV. Reevaluation #2: Recheck-resting more calmly. Somewhat sleepy but arousable and able answer questions and carry a conversation.. Nausea improved. Feels comfortable going home. Mother comfortable bringing him home with her. Vital Signs Vital signs: Initial Vital Signs Temperature 96.7 F L 07/23/23 16:09 Temperature Source Temporal Artery Scan 07/23/23 16:09 Pulse Rate 74 07/23/23 16:09 Pulse Rhythm Regular 07/23/23 16:09 Pulse Strength 3+ Normal 07/23/23 16:09 Respiratory Rate 24 07/23/23 16:09 Blood Pressure 162/115 H 07/23/23 16:09 Blood Pressure Mean 130 H 07/23/23 16:09 Blood Pressure Position Sitting 07/23/23 16:09 Pulse Oximetry 100 07/23/23 16:09 Oxygen Delivery Method Room Air 07/23/23 16:09 Vital Signs Temperature 96.7 F L 07/23/23 16:09 Pulse Rate 74 07/23/23 16:09 Respiratory Rate 24 07/23/23 16:09 Blood Pressure 162/115 H 07/23/23 16:09 Pulse Oximetry 100 07/23/23 16:09 Oxygen Delivery Method Room Air 07/23/23 16:09 Temperature 96.7 F L 07/23/23 16:09 Pulse Rate 74 07/23/23 16:09 Respiratory Rate 24 07/23/23 16:09 Blood Pressure 162/115 H 07/23/23 16:09 Pulse Oximetry 100 07/23/23 16:09 Oxygen Delivery Method Room Air 07/23/23 16:09 Medications Administered Medications: Generic Name Dose Route Start Last Admin Trade Name Freq PRN Reason Stop Dose Admin Lorazepam 2 mg 07/23/23 16:43 07/23/23 17:08 Lorazepam 2 Mg/Ml Inj IVP 2 mg Q6H PRN Administration Discontinued Medications Generic Name Dose Route Start Last Admin Trade Name Freq PRN Reason Stop Dose Admin Diphenhydramine HCl 50 mg 07/23/23 16:43 07/23/23 17:08 Diphenhydramine 50 Mg/Ml Inj IVP 07/23/23 16:44 50 mg ONCE ONE Administration Droperidol 2.5 mg 07/23/23 18:00 07/23/23 18:20 Droperidol 2.5 Mg/Ml Inj IV 07/23/23 18:01 2.5 mg ONCE ONE Administration Lactated Ringer's 1,000 ml 07/23/23 16:43 07/23/23 17:09 Lactated Ringers 1000 Ml IV 07/23/23 16:44 1,000 ml ONCE ONE Administration Lorazepam 1 mg 07/23/23 19:09 07/23/23 19:18 Lorazepam 2 Mg/Ml Inj IVP 07/23/23 19:10 1 mg ONCE ONE Administration Ondansetron HCl 8 mg 07/23/23 16:43 07/23/23 17:08 Ondansetron 2 Mg/Ml Inj IVP 07/23/23 16:44 8 mg ONCE ONE Administration Medical Decision Making MDM Narrative Medical decision making narrative: Presented to the Emergency Department with protracted nausea and vomiting associated with mild upper abdominal pain. The differential diagnosis of abdominal pain includes: Appendicitis, Bowel Obstruction, Ulcer, Ischemia, Cholecystitis, Diverticulitis, Pancreatitis, UTI, kidney stone, Enteritis/Colitis, but the patient has a known history of cyclic vomiting syndrome and feels that today's symptoms are related to that. Laboratory testing does not reveal a cause for the patient's pain or dangerous electrolyte disturbance or renal failure. At this point I do not think the patient requires advanced imaging. No life threatening cause or need for emergent surgery or hospital admission is detected today. After multiple rounds of antiemetics he is feeling better and wants to go home. He is requesting that we pull his IV. The patient was advised that if symptoms do not completely resolve within another 12-24 hours, or if they worsen, re- evaluation with primary care or return to the ED is indicated. The patient also understands that if they worsen, they should return to the ER right away. I discussed the uncertainty about the diagnosis and answered the patient's questions. Abdominal pain return precautions discussed. He will follow-up with his primary care provider. Consult cessation of alcohol and marijuana. Also counseled outpatient workup for possible underlying mental health crises such as anxiety. Lab Data Labs: Lab Results 07/23/23 Range/Units 17:07 WBC 10.82 (4.50-11.00) K/uL RBC 4.55 (4.30-5.90) m/uL Hgb 13.7 (13.5-17.5) gm/dL Hct 40.6 (37.0-53.0) % MCV 89 (80-100) fL MCH 30 (26-34) pg MCHC 34 (32-36) gm/dL RDW Coeff of Belia 13.3 (11.5-15.5) % Plt Count 378 (140-440) K/uL Neut % (Auto) 83.4 H (42.0-72.0) % Lymph % (Auto) 12.8 L (20-44) % [place] % (Auto) 3.3 (0.0-11.0) % Eos % (Auto) 0.0 (0.0-7.0) % Baso % (Auto) 0.3 (0.0-3.0) % Neut # (Auto) 9.00 H (1.7-7.0) K/uL Lymph # (Auto) 1.40 (0.90-2.90) K/uL [place] # (Auto) 0.40 (0.00-0.90) K/UL Eos # (Auto) 0.00 (0.00-0.50) K/uL Baso # (Auto) 0.03 (0.00-0.30) K/uL Abs Immat Gran (auto) 0.02 (0.00-0.30) K/uL Imm/Tot Granulo (auto) 0.2 % Sodium 139 (135-149) mmol/L Potassium 3.6 (3.6-5.1) mmol/L Chloride 105 (96-114) mmol/L Carbon Dioxide 20 (20-32) mmol/L Anion Gap 14 (7-15) mEq/L BUN 16 (5-24) mg/dL Creatinine 0.7 (0.5-1.5) mg/dL Estimated Creat Clear 173.98 Estimated GFR 130 ml/min Glucose 106 (60-115) mg/dL Calcium 9.6 (8.4-10.6) mg/dL Total Bilirubin 0.4 (0.1-1.5) mg/dL AST 25 (12-35) U/L ALT 23 (4-50) U/L Alkaline Phosphatase 102 (40-150) U/L Total Protein 7.5 (6.0-8.3) g/dL Albumin 4.9 (3.3-5.0) g/dL Lipase 73 (23-300) U/L Discharge Plan Discharge Clinical Impression: Cyclical vomiting Patient Disposition: Home, Self-Care Condition: Stable Instructions: Acute Nausea and Vomiting (DC) Additional Instructions: As we discussed, please return to the ER right away if you have worsening symptoms or uncontrolled nausea or vomiting, bloody vomit, bloody or black stool, high fever, or any concerns. Please continue to work to stop alcohol and marijuana. See your doctor as soon as possible for a recheck. Prescriptions: No Action lorazepam 0.5 mg tablet 0.5 mg PO DAILY PRN prochlorperazine 25 mg suppository 25 mg [place] Q12H PRN lisinopril 10 mg tablet 10 mg PO DAILY hydroxyzine HCl 25 mg tablet 25 - 50 mg PO Q6H PRN clonidine 0.3 mg/24 hr patch weekly 1 patch topical MO Hold Instructions: Pt denies Rx Instructions: WEEKLY ON MONDAYS ondansetron 4 mg tablet,disintegrating 4 mg PO Q8H PRN Patient Comments: DISSOLVE 1 TABLET ON THE TONGUE EVERY 8 HOURS NEEDED FOR NAUSEA OR VOMITING desvenlafaxine succinate 50 mg tablet extended release 24 hr 50 mg PO DAILY Rx Instructions: TOTAL DOSE = 75MG desvenlafaxine succinate 25 mg tablet extended release 24 hr 25 mg PO DAILY Rx Instructions: TOTAL DOSE = 75 MG trazodone 50 mg tablet 25 mg PO HS PRN folic acid 1 mg tablet 1 mg PO DAILY melatonin 10 mg capsule 10 mg PO HS olanzapine [Zyprexa] 5 mg tablet 5 mg PO BID PRNQty: 10 0RF Follow Up/Referrals: Deepthi Mc PATressa [Primary Care Provider] - Stand Alone Forms: [facility] Info Inst[facility]
[2023-07-23] MEDS: diphenhydrAMINE 50 MG/ML inj IVP (17:08)
[2023-07-23] MEDS: ONDANSETRON 2 MG/ML inj 8 MG IVP (17:08)
[2023-07-23] MEDS: LORazepam 2 MG/ML inj IVP (17:08)
[2023-07-23] MEDS: LACTATED RINGERS 1000 ML IV (17:09)
[2023-07-23 17:18] LABS: Basophils Absolute Auto 0.03 K/uL (0.00-0.30); Basophils Percent Auto 0.3 % (0.0-3.0); Hematocrit 40.6 % (37.0-53.0); Hemoglobin* 13.7 gm/dL (13.5-17.5); Immature Granulocytes Abs Auto 0.02 K/uL (0.00-0.30); Immature Granulocytes Pct Auto 0.2 %; Lymphocytes Percent Auto 12.8 % (20-44); Mean Corpuscular HGB Conc 34 gm/dL (32-36); Mean Corpuscular Hemoglobin 30 pg (26-34); Mean Corpuscular Volume 89 fL (80-100); Monocytes Percent Auto 3.3 % (0.0-11.0); Neutrophils Percent Auto 83.4 % (42.0-72.0); Platelet Count* 378 K/uL (140-440); RDW Coefficient of Variation % 13.3 % (11.5-15.5); Red Blood Count 4.55 m/uL (4.30-5.90); White Blood Count* 10.82 K/uL (4.50-11.00)
[2023-07-23 17:19] LABS: Slide Review Reflex No
[2023-07-23 17:26] LABS: Albumin* 4.9 g/dL (3.3-5.0); Chloride* 105 mmol/L (96-114)
[2023-07-23 17:27] LABS: Potassium* 3.6 mmol/L (3.6-5.1); Sodium* 139 mmol/L (135-149)
[2023-07-23 17:29] LABS: Anion Gap 14 mEq/L (7-15); Carbon Dioxide* 20 mmol/L (20-32); Creatinine* 0.7 mg/dL (0.5-1.5); Est. Creatinine Clearance* 173.98; Estimated Glomerular Filt Rate 130 ml/min
[2023-07-23 17:30] LABS: Alanine Aminotransferase* 23 U/L (4-50); Alkaline Phosphatase* 102 U/L (40-150); Aspartate Amino Transferase* 25 U/L (12-35); Bilirubin Total* 0.4 mg/dL (0.1-1.5); Blood Urea Nitrogen* 16 mg/dL (5-24); Calcium* 9.6 mg/dL (8.4-10.6); Glucose* 106 mg/dL (60-115); Lipase* 73 U/L (23-300); Total Protein* 7.5 g/dL (6.0-8.3)
[2023-07-23] MEDS: droperidoL 2.5 MG/ML inj IV (18:20)
[2023-07-23] MEDS: LORazepam 2 MG/ML inj 1 MG IVP (19:18)
== END 2023-07-23 20:06 | disposition home or self-care (01) ==
PROVIDERS: Emergency Provider Emergency Medicine; PCP Physician Assistant Medical
DX: R11.15 Cyclical vomiting syndrome unrelated to migraine (principal)
CPT/HCPCS: 36415; 80053; 83690; 85025; 93005; 96374; 96375; 96376; 99283; J1200; J1790; J2060; J2405; J7120

== ENCOUNTER 2023-08-11 16:39 | Outpatient (CLI) | payer BC, SELFPAY | END 2023-08-11 16:40 | disposition home or self-care (01) | LOC: AMB 08-13 09:53 | PROVIDERS: PCP Physician Assistant Medical; Visit Provider Family Medicine | DX: R11.10 Vomiting, unspecified (principal) | CPT/HCPCS: A0425; A0429 ==

== ENCOUNTER 2023-10-19 13:12 | Outpatient (CLI) | payer BC, SELFPAY | END 2023-10-19 13:13 | disposition home or self-care (01) | LOC: AMB 10-21 15:22 | PROVIDERS: PCP Physician Assistant Medical; Visit Provider Family Medicine | DX: F10.139 Alcohol abuse with withdrawal, unspecified (principal) | CPT/HCPCS: A0425; A0427 ==

== ENCOUNTER 2023-11-10 02:11 | Emergency (ER) | payer BC, SELFPAY ==
[2023-11-10 02:18] VITALS: BP 152/115; PULSE 107; RESP 16; TEMP 36.2; O2SAT 100; BMI 27.1
--- NOTE | 2023-11-10 02:59 | ED.GENADULT ---
HPI - General Adult General Chief complaint: Nausea/Vomiting Stated complaint: vomiting Time Seen by Provider: 11/10/23 02:38 Source: patient and family Mode of arrival: ambulatory History of Present Illness HPI narrative: 28-year-old male presents the emergency department with persistent vomiting only 2 hours. Longstanding history of cyclic vomiting syndrome. Administration and our lead ED physician have a ?medication agreement? with this patient that he can come in for IM medications when he becomes symptomatic. His typical regimen is 2 mg of Ativan, 50 of Benadryl and 8 mg of Zofran. He requests that we add Toradol to this regimen today which he finds helpful. I clarified that he did not mean droperidol which was given at his last encounter. He does clarify that Toradol is correct and not droperidol and his mother confirms this as well. I did review his last to ED notes. It is not part of his agreement that he receive IV fluids, IV medications or other workup unless there seems to be reason to do so. He is not having fever, there was no bloody stools, no bloody vomit. Denies significant abdominal pain. Reports that his symptoms are classic for him and he has started smoking marijuana again but is highly motivated to quit and plans to start with a detox facility. His last alcoholic drink was 4 hours ago. 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 is that he come in during standard business hours. Past medical history in addition to the cyclic vomiting syndrome is also notable for mental health disorders, alcohol and persistent marijuana use. Currently living at home with parents, mother accompanies today. ROS notable for the cyclic vomiting as described above, denies other systemic complaints times 12 systems. Related Data Home Medications Medication Instructions Recorded Confirmed clonidine 0.3 mg/24 hr weekly 1 patch topical MO 02/13/22 04/11/23 transdermal patch desvenlafaxine succinate 50 mg 50 mg PO DAILY 02/13/22 04/11/23 tablet,extended release 24 hr hydroxyzine HCl 25 mg tablet 25 - 50 mg PO Q6H PRN 02/13/22 04/11/23 lisinopril 10 mg tablet 10 mg PO DAILY 02/13/22 04/11/23 lorazepam 0.5 mg tablet 0.5 mg PO DAILY PRN 02/13/22 04/11/23 ondansetron 4 mg disintegrating 4 mg PO Q8H PRN 02/13/22 04/11/23 tablet prochlorperazine 25 mg rectal 25 mg [place] Q12H PRN 02/13/22 04/11/23 suppository desvenlafaxine succinate 25 mg 25 mg PO DAILY 08/14/22 04/11/23 tablet,extended release 24 hr folic acid 1 mg tablet 1 mg PO DAILY 08/14/22 04/11/23 melatonin 10 mg capsule 10 mg PO HS 08/14/22 04/11/23 trazodone 50 mg tablet 25 mg PO HS PRN 08/14/22 04/11/23 Previous Rx's Medication Instructions Recorded olanzapine 5 mg tablet (Zyprexa) 5 mg PO BID PRN #10 tabs 04/11/23 Allergies Allergy/AdvReac Type Severity Reaction Status Date / Time haloperidol [From Haldol] Allergy Verified 07/23/23 16:09 [facility] Medical History Normal colonoscopy Normal esophagogastroduodenoscopy (EGD) ?Z01.89 - Encounter for other specified special examinations (ICD-10) Cyclical vomiting ?R11.15 - Cyclical vomiting syndrome unrelated to migraine (ICD-10) Anxiety ?F41.9 - Anxiety disorder, unspecified (ICD-10) Substance abuse ?F19.10 - Other psychoactive substance abuse, uncomplicated (ICD-10) Surgical History History of myringotomy ?Z98.890 - Other specified postprocedural states (ICD-10) Social History Narrative: Patient lives in his own apartment in [place]. His mother is healthcare power of insurance defense attorney and code status is full. History of alcohol and cannabis abuse. Current cigarette smoking. Highest level of school completed/degree received: Associate degree: occupational, technical, vocational program Smoking Status: Current every day smoker What tobacco products do you use: cigarettes Smoking packs per day: 0.5 Smoking cigarettes per day: 10.0 Years smoked: 10 Smoking pack-years: 5.00 Smoking quit date/years: >15 years ago Do you use any of these nicotine containing products: E-Cigarettes and Vaping Products Second hand tobacco smoke exposure: No How often do you have a drink containing alcohol: 4 or more times a week How many standard drinks containing alcohol do you have on a typical day: 5 or 6 How often do you have six or more drinks on one occasion: Daily or almost daily AUDIT-C Alcohol total score: 10 Non-prescribed substance use: marijuana (any form) Caffeine: Yes service: No Exam Const: Vital Signs, click to edit/add: Vital Signs - 24 hr 11/10/23 02:18 Temperature 97.1 F L Pulse Rate [Pulse Oximeter] 107 H Respiratory Rate 16 Blood Pressure [Ri ght Upper Arm] 152/115 H Pulse Oximetry 100 Oxygen Delivery Me thod Room Air Documenting provider has reviewed patient's vital signs: yes Common normals: no apparent distress General appearance: well kempt Other: Very talkative. He is actually more insightful today than when I last saw him a few years ago. He has grown up quite a bit and has gained some weight. HENMT: Common normals: normocephalic Head and scalp: normocephalic Face and sinus: normal facial exam Mouth: oral and palatal mucosa normal Eye: Common normals: conjunctivae normal General eye: normal appearance of both eyes Conjunctiva: conjunctiva(e) normal Neck & C-Spine: General: normal visual inspection Resp: Common normals: normal respiratory effort and clear to auscultation bilaterally Effort & inspection: able to speak in complete sentences Auscultation: clear to auscultation bilaterally Cardio: Common normals: regular rate, regular rhythm, S1 normal heart sound, S2 normal heart sound and no murmurs Rate: regular rate Rhythm: regular rhythm Heart sounds: S1 normal and S2 normal GI: Common normals: Normal to inspection, nondistended, normoactive bowel sounds present and soft to palpation Palpation: soft Extremity: Common normals: normal to inspection Psych: Appearance: well kempt Attitude: engaged Other: Verbally snaps and his mother but recognizes that this approval in my face quickly. He actually is demonstrating much more remorse than in previous visits. He is mostly polite and respectful to me, which is different than previous visits. Course Course ED Course: Cyclic vomiting with no red flags for pancreatitis, fever, abdominal pain, bloody stools, gastric perforation, ulcer or other severe pathology. Per the previous medication agreement, will give Ativan, Benadryl and Zofran. Will add Toradol per his request. Would also like to give 20 mg of famotidine hoping that helps with any potential mild gastritis. Agree with his plan to seek marijuana and alcohol treatment. He does not request assistance with this. As per our previous agreements, I will not be reassessing the patient to ensure that he has adequate improvement of symptoms. He is to be discharged after his medications and may return if he is not getting any symptom relief after 12 hours. This is per the previous agreement. If he does return, at that time I would recommend blood work for pancreatitis, basic labs. Vital Signs Vital signs: Initial Vital Signs Temperature 97.1 F L 11/10/23 02:18 Temperature Source Temporal Artery Scan 11/10/23 02:18 Pulse Rate 107 H 11/10/23 02:18 Respiratory Rate 16 11/10/23 02:18 Blood Pressure 152/115 H 11/10/23 02:18 Blood Pressure Mean 127 H 11/10/23 02:18 Blood Pressure Position Sitting 11/10/23 02:18 Pulse Oximetry 100 11/10/23 02:18 Oxygen Delivery Method Room Air 11/10/23 02:18 Vital Signs Temperature 97.1 F L 11/10/23 02:18 Pulse Rate 107 H 11/10/23 02:18 Respiratory Rate 16 11/10/23 02:18 Blood Pressure 152/115 H 11/10/23 02:18 Pulse Oximetry 100 11/10/23 02:18 Oxygen Delivery Method Room Air 11/10/23 02:18 Temperature 97.1 F L 11/10/23 02:18 Pulse Rate 107 H 11/10/23 02:18 Respiratory Rate 16 11/10/23 02:18 Blood Pressure 152/115 H 11/10/23 02:18 Pulse Oximetry 100 11/10/23 02:18 Oxygen Delivery Method Room Air 11/10/23 02:18 Discharge Plan Discharge Clinical Impression: Cyclical vomiting Patient Disposition: Home w/ Parent or Adult Condition: Stable Instructions: Cyclic Vomiting Syndrome (ED) Additional Instructions: I am very glad to hear that you are committed to substance treatment. Please contact your local county resources if you need further assistance arranging this. Please remember that part of our agreement for your medications is that you come in during standard business hours. It can take a couple of hours for the medications to kick in completely. I cannot expect that it will relieve your symptoms entirely. I hope that is helpful. If you are still very symptomatic after 12 hours, you may return to the emergency department for further assessment and re-evaluation. At that time, I would recommend that they draw blood work and do a more formal evaluation if your symptoms are not improving. Do your best to push fluids. You may repeat the Compazine suppository every 8 hours. You would be due for another dose of Zofran at 9:00 a.m. if needed. Activity Level: No Restrictions Discharge Diet: Regular Prescriptions: No Action lorazepam 0.5 mg tablet 0.5 mg PO DAILY PRN prochlorperazine 25 mg suppository 25 mg [place] Q12H PRN lisinopril 10 mg tablet 10 mg PO DAILY hydroxyzine HCl 25 mg tablet 25 - 50 mg PO Q6H PRN clonidine 0.3 mg/24 hr patch weekly 1 patch topical MO Hold Instructions: Pt denies Rx Instructions: WEEKLY ON MONDAYS ondansetron 4 mg tablet,disintegrating 4 mg PO Q8H PRN Patient Comments: DISSOLVE 1 TABLET ON THE TONGUE EVERY 8 HOURS NEEDED FOR NAUSEA OR VOMITING desvenlafaxine succinate 50 mg tablet extended release 24 hr 50 mg PO DAILY Rx Instructions: TOTAL DOSE = 75MG desvenlafaxine succinate 25 mg tablet extended release 24 hr 25 mg PO DAILY Rx Instructions: TOTAL DOSE = 75 MG trazodone 50 mg tablet 25 mg PO HS PRN folic acid 1 mg tablet 1 mg PO DAILY melatonin 10 mg capsule 10 mg PO HS olanzapine [Zyprexa] 5 mg tablet 5 mg PO BID PRNQty: 10 0RF Follow Up/Referrals: Deepthi Mc PA-C [Primary Care Provider] - Stand Alone Forms: [facility] Info Instructions
[2023-11-10] MEDS: FAMOTIDINE 20 MG TABLET PO (03:15)
[2023-11-10] MEDS: diphenhydrAMINE 50 MG/ML inj IM (03:15)
[2023-11-10] MEDS: LORazepam 2 MG/ML inj IM (03:15)
[2023-11-10] MEDS: ONDANSETRON ODT 4 MG TAB 8 MG PO (03:15)
[2023-11-10] MEDS: KETOROLAC 30 MG/ML inj IM (03:15)
== END 2023-11-10 03:45 | disposition home or self-care (01) ==
PROVIDERS: Emergency Provider Family Medicine; PCP Physician Assistant Medical
DX: R11.15 Cyclical vomiting syndrome unrelated to migraine (principal)
CPT/HCPCS: 96372; 99283; A9270; J1200; J1885; J2060

== ENCOUNTER 2023-11-13 12:35 | Outpatient (CLI) | payer BC, SELFPAY | END 2023-11-13 12:36 | disposition home or self-care (01) | PROVIDERS: PCP Physician Assistant Medical; Visit Provider Student in an Organized Health Care Education/Training Program | DX: F10.129 Alcohol abuse with intoxication, unspecified (principal) | CPT/HCPCS: A0425; A0433 ==

== ENCOUNTER 2023-11-22 12:41 | Emergency (ER) | payer BC, SELFPAY ==
[2023-11-22 13:04] VITALS: BP 165/104; PULSE 77; RESP 16; TEMP 36.7; O2SAT 99
--- NOTE | 2023-11-22 13:19 | ED.GENADULT ---
HPI - General Adult General Chief complaint: Nausea/Vomiting Stated complaint: N/V Time Seen by Provider: 11/22/23 13:21 History of Present Illness HPI narrative: Patient has history of cyclic vomiting . States that he gets IM injections and then can go home. Last episode a couple weeks ago per patient 28-year-old young man accompanied here by his mother concern of vomiting, cyclical began earlier this morning. History of recurrent visits. Thought related to marijuana other substance ingestion. Says he has not had marijuana for about a week. Notes that alcohol has been more of a problem lately. Is anticipating going to treatment in the middle of next week. Does have accepted treatment regimen that we have provided historically for these episodes here in this emergency department. Looks like has been here last about a month ago. Reviewing changes shows the diphenhydramine is increased a little bit from 25 mg to 50 mg. He is requesting same cocktail. Not really having pain. Related Data Home Medications ?Medication ?Instructions ?Recorded ?Confirmed clonidine 0.3 mg/24 hr weekly 1 patch topical MO 02/13/22 04/11/23 transdermal patch desvenlafaxine succinate 50 mg 50 mg PO DAILY 02/13/22 04/11/23 tablet,extended release 24 hr hydroxyzine HCl 25 mg tablet 25 - 50 mg PO Q6H PRN 02/13/22 04/11/23 lisinopril 10 mg tablet 10 mg PO DAILY 02/13/22 04/11/23 lorazepam 0.5 mg tablet 0.5 mg PO DAILY PRN 02/13/22 04/11/23 ondansetron 4 mg disintegrating 4 mg PO Q8H PRN 02/13/22 04/11/23 tablet prochlorperazine 25 mg rectal 25 mg [place] Q12H PRN 02/13/22 04/11/23 suppository desvenlafaxine succinate 25 mg 25 mg PO DAILY 08/14/22 04/11/23 tablet,extended release 24 hr folic acid 1 mg tablet 1 mg PO DAILY 08/14/22 04/11/23 melatonin 10 mg capsule 10 mg PO HS 08/14/22 04/11/23 trazodone 50 mg tablet 25 mg PO HS PRN 08/14/22 04/11/23 Previous Rx's ?Medication ?Instructions ?Recorded olanzapine 5 mg tablet (Zyprexa) 5 mg PO BID PRN #10 tabs 04/11/23 Allergies Allergy/AdvReac Type Severity Reaction Status Date / Time haloperidol [From Haldol] Allergy Verified 07/23/23 16:09 Review of Systems Status of ROS: Reports: 6 or more systems reviewed and unremarkable except as noted in History and below [facility] Medical History Normal colonoscopy Normal esophagogastroduodenoscopy (EGD) ?Z01.89 - Encounter for other specified special examinations (ICD-10) Cyclical vomiting ?R11.15 - Cyclical vomiting syndrome unrelated to migraine (ICD-10) Anxiety ?F41.9 - Anxiety disorder, unspecified (ICD-10) Substance abuse ?F19.10 - Other psychoactive substance abuse, uncomplicated (ICD-10) Surgical History History of myringotomy ?Z98.890 - Other specified postprocedural states (ICD-10) Social History Narrative: Patient lives in his own apartment in [place]. His mother is healthcare power of ip attorney and code status is full. History of alcohol and cannabis abuse. Current cigarette smoking. Highest level of school completed/degree received: Associate degree: occupational, technical, vocational program Smoking Status: Current every day smoker What tobacco products do you use: cigarettes Smoking packs per day: 0.5 Smoking cigarettes per day: 10.0 Years smoked: 10 Smoking pack-years: 5.00 Smoking quit date/years: >15 years ago Do you use any of these nicotine containing products: E-Cigarettes and Vaping Products Second hand tobacco smoke exposure: No How often do you have a drink containing alcohol: 4 or more times a week How many standard drinks containing alcohol do you have on a typical day: 5 or 6 How often do you have six or more drinks on one occasion: Daily or almost daily AUDIT-C Alcohol total score: 10 Non-prescribed substance use: marijuana (any form) Caffeine: Yes service: No Exam Narrative: Exam Narrative: Distracted. Restless. Shirtless as usual. Not diaphoretic though. No indication of injury on his skin. Not tachypneic but mildly labored in breathing. Heart in regular rate and rhythm. Restless constantly moving. Emesis bag nearby. Abdomen generally mildly tender/uncomfortable. Oropharynx appears sticky. Const: Vital Signs, click to edit/add: Vital Signs - 24 hr 11/22/23 13:04 Temperature 98.0 F Pulse Rate [Pulse Oximeter] 77 Respiratory Rate 16 Blood Pressure [Ri ght Upper Arm] 165/104 H Pulse Oximetry 99 Oxygen Delivery Me thod Room Air Documenting provider has reviewed patient's vital signs: yes Course Vital Signs Vital signs: Initial Vital Signs Temperature 98.0 F 11/22/23 13:04 Temperature Source Oral 11/22/23 13:04 Pulse Rate 77 11/22/23 13:04 Pulse Rhythm Regular 11/22/23 13:04 Respiratory Rate 16 11/22/23 13:04 Blood Pressure 165/104 H 11/22/23 13:04 Blood Pressure Mean 124 H 11/22/23 13:04 Blood Pressure Position Sitting 11/22/23 13:04 Pulse Oximetry 99 11/22/23 13:04 Oxygen Delivery Method Room Air 11/22/23 13:04 Vital Signs Temperature 98.0 F 11/22/23 13:04 Pulse Rate 77 11/22/23 13:04 Respiratory Rate 16 11/22/23 13:04 Blood Pressure 165/104 H 11/22/23 13:04 Pulse Oximetry 99 11/22/23 13:04 Oxygen Delivery Method Room Air 11/22/23 13:04 Temperature 98.0 F 11/22/23 13:04 Pulse Rate 77 11/22/23 13:04 Respiratory Rate 16 11/22/23 13:04 Blood Pressure 165/104 H 11/22/23 13:04 Pulse Oximetry 99 11/22/23 13:04 Oxygen Delivery Method Room Air 11/22/23 13:04 Medications Administered Medications: Discontinued Medications Generic Name Dose Route Start Last Admin Trade Name Freq PRN Reason Stop Dose Admin Diphenhydramine HCl 50 mg 11/22/23 13:55 11/22/23 14:11 Diphenhydramine 50 Mg/Ml Inj IM 11/22/23 13:56 50 mg ONCE ONE Administration Ketorolac Tromethamine 30 mg 11/22/23 13:53 11/22/23 14:05 Ketorolac 30 Mg/Ml Inj IM 11/22/23 13:54 30 mg ONCE ONE Administration Lorazepam 2 mg 11/22/23 13:53 11/22/23 14:06 Lorazepam 2 Mg/Ml Inj IM 11/22/23 13:54 2 mg ONCE ONE Administration Ondansetron HCl 8 mg 11/22/23 13:53 11/22/23 14:10 Ondansetron 2 Mg/Ml Inj IM 11/22/23 13:54 8 mg ONCE ONE Administration Medical Decision Making MDM Narrative Medical decision making narrative: Established history and treatment here. Reviewed last treatment. Ordered for same. Departing emergency department prior to will full effect. Historically will be effective. No other red flags identified. See patient discharge plan for further discussion/plan Medical Records Medical records reviewed: Yes I reviewed the patient's medical records Discharge Plan Discharge Clinical Impression: Movement disorder, Anxiety, Cyclical vomiting Patient Disposition: Home w/ Parent or Adult Condition: Stable Additional Instructions: Best wishes in your efforts at sobriety and well-being. Prescriptions: No Action lorazepam 0.5 mg tablet 0.5 mg PO DAILY PRN prochlorperazine 25 mg suppository 25 mg [place] Q12H PRN lisinopril 10 mg tablet 10 mg PO DAILY hydroxyzine HCl 25 mg tablet 25 - 50 mg PO Q6H PRN clonidine 0.3 mg/24 hr patch weekly 1 patch topical MO Hold Instructions: Pt denies Rx Instructions: WEEKLY ON MONDAYS ondansetron 4 mg tablet,disintegrating 4 mg PO Q8H PRN Patient Comments: DISSOLVE 1 TABLET ON THE TONGUE EVERY 8 HOURS NEEDED FOR NAUSEA OR VOMITING desvenlafaxine succinate 50 mg tablet extended release 24 hr 50 mg PO DAILY Rx Instructions: TOTAL DOSE = 75MG desvenlafaxine succinate 25 mg tablet extended release 24 hr 25 mg PO DAILY Rx Instructions: TOTAL DOSE = 75 MG trazodone 50 mg tablet 25 mg PO HS PRN folic acid 1 mg tablet 1 mg PO DAILY melatonin 10 mg capsule 10 mg PO HS olanzapine [Zyprexa] 5 mg tablet 5 mg PO BID PRNQty: 10 0RF Follow Up/Referrals: Deepthi Mc PA-C [Primary Care Provider] - Stand Alone Forms: [facility] Info Instructions
[2023-11-22] MEDS: KETOROLAC 30 MG/ML inj IM (14:05)
[2023-11-22] MEDS: LORazepam 2 MG/ML inj IM (14:06)
[2023-11-22] MEDS: ONDANSETRON 2 MG/ML inj 8 MG IM (14:10)
[2023-11-22] MEDS: diphenhydrAMINE 50 MG/ML inj IM (14:11)
== END 2023-11-22 14:12 | disposition home or self-care (01) ==
PROVIDERS: Emergency Provider Family Medicine; PCP Physician Assistant Medical
DX: G25.9 Extrapyramidal and movement disorder, unspecified (principal); F41.9 Anxiety disorder, unspecified; R11.15 Cyclical vomiting syndrome unrelated to migraine
CPT/HCPCS: 96372; 99283; 99284; J1200; J1885; J2060; J2405

== ENCOUNTER 2024-01-02 22:47 | Emergency (ER) | payer BC, SELFPAY ==
[2024-01-02 22:51] VITALS: BP 122/76; PULSE 129; RESP 18; TEMP 37.2; O2SAT 96; BMI 30.5
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
== END 2024-01-03 00:19 | disposition home or self-care (01) ==
PROVIDERS: Emergency Provider Family Medicine; PCP Physician Assistant Medical
DX: S01.81XA Laceration without foreign body of other part of head, initial encounter (principal); S03.40XA Sprain of jaw, unspecified side, initial encounter; V19.3XXA Pedal cyclist (driver) (passenger) injured in unspecified nontraffic accident, initial encounter
CPT/HCPCS: 12011; 99283; 99284

== ENCOUNTER 2024-01-11 16:35 | Emergency (ER) | payer BC, SELFPAY ==
[2024-01-11 16:52] VITALS: BP 150/80; PULSE 85; RESP 20; TEMP 36.7; O2SAT 98; BMI 29.8
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
== END 2024-01-11 18:20 | disposition home or self-care (01) ==
LOC: ED 18:19
PROVIDERS: Emergency Provider Family Medicine; PCP Physician Assistant Medical
DX: S03.43XA Sprain of jaw, bilateral, initial encounter (principal); Z48.02 Encounter for removal of sutures
CPT/HCPCS: 99283

== ENCOUNTER 2024-03-24 12:58 | Emergency (ER) | payer BC, SELFPAY ==
[2024-03-24 13:05] VITALS: BP 151/103; PULSE 61; RESP 24; TEMP 36.1; O2SAT 98; BMI 31.9
--- NOTE | 2024-03-24 13:17 | ED_ITS ---
HPI - General Adult General Date Seen: 03/24/24 Chief complaint: Nausea/Vomiting Stated complaint: vomiting/tremors Time Seen by Provider: 03/24/24 13:07 Source: patient and family Mode of arrival: ambulatory Limitations: no limitations History of Present Illness HPI narrative: Patient is a 28-year-old with history of cyclic vomiting and substance abuse, well known to the emergency department. Here with his mother today for evaluation of vomiting symptoms which started at 6:00 a.m.. He he does report that he went to rehab for month earlier this summer, he did not feel like they helped him and he is actively drinking daily and using marijuana daily. He has loose plans to go to another rehab facility but there is nothing in the works, his mom says he also has standing appointment at [facility] and just needs to get back to seeing them. He is working a little bit. He is living with his mom. He presents today with typical symptoms of his cyclic vomiting. He is gulping down water and then inducing vomiting in the room. He requests his standard medications, he also requests Toradol which he says he finds helpful. He also request discharge paperwork at the time of his medications because he would like to go as since he gets his meds. He denies any typical features today such as fever, significant abdominal pain, vomiting blood or bloody stools. Related Data Home Medications ?Medication ?Instructions ?Recorded ?Confirmed clonidine 0.3 mg/24 hr weekly 1 patch topical MO 02/13/22 01/11/24 transdermal patch desvenlafaxine succinate 50 mg 50 mg PO DAILY 02/13/22 01/11/24 tablet,extended release 24 hr hydroxyzine HCl 25 mg tablet 25 - 50 mg PO Q6H PRN 02/13/22 01/11/24 lisinopril 10 mg tablet 10 mg PO DAILY 02/13/22 01/11/24 lorazepam 0.5 mg tablet 0.5 mg PO DAILY PRN 02/13/22 04/11/23 ondansetron 4 mg disintegrating 4 mg PO Q8H PRN 02/13/22 01/11/24 tablet prochlorperazine 25 mg rectal 25 mg [place] Q12H PRN 02/13/22 01/11/24 suppository desvenlafaxine succinate 25 mg 25 mg PO DAILY 08/14/22 01/11/24 tablet,extended release 24 hr folic acid 1 mg tablet 1 mg PO DAILY 08/14/22 01/11/24 melatonin 10 mg capsule 10 mg PO HS 08/14/22 04/11/23 trazodone 50 mg tablet 25 mg PO HS PRN 08/14/22 01/11/24 Previous Rx's ?Medication ?Instructions ?Recorded olanzapine 5 mg tablet (Zyprexa) 5 mg PO BID PRN #10 tabs 04/11/23 Allergies Allergy/AdvReac Type Severity Reaction Status Date / Time haloperidol [From Haldol] Allergy Verified 01/11/24 16:56 [facility] Medical History Normal colonoscopy Normal esophagogastroduodenoscopy (EGD) ?Z01.89 - Encounter for other specified special examinations (ICD-10) Cyclical vomiting ?R11.15 - Cyclical vomiting syndrome unrelated to migraine (ICD-10) Anxiety ?F41.9 - Anxiety disorder, unspecified (ICD-10) Substance abuse ?F19.10 - Other psychoactive substance abuse, uncomplicated (ICD-10) Surgical History History of myringotomy ?Z98.890 - Other specified postprocedural states (ICD-10) Social History Narrative: Patient lives in his own apartment in [place]. His mother is healthcare power of insurance attorney and code status is full. History of alcohol and cannabis abuse. Current cigarette smoking. Highest level of school completed/degree received: Associate degree: occupational, technical, vocational program Smoking Status: Current every day smoker What tobacco products do you use: cigarettes Smoking packs per day: 0.5 Smoking cigarettes per day: 10.0 Years smoked: 10 Smoking pack-years: 5.00 Smoking quit date/years: >15 years ago Do you use any of these nicotine containing products: E-Cigarettes and Vaping Products Second hand tobacco smoke exposure: No How often do you have a drink containing alcohol: 4 or more times a week How many standard drinks containing alcohol do you have on a typical day: 5 or 6 How often do you have six or more drinks on one occasion: Daily or almost daily AUDIT-C Alcohol total score: 10 Non-prescribed substance use: marijuana (any form) Caffeine: Yes service: No Exam Narrative: Exam Narrative: Vital signs reviewed In general, an alert, somewhat physically agitated male, he has taken a fissured, writhing on the bed. Abdomen, nondistended, nontender. Skin: Warm and dry. Const: Vital Signs, click to edit/add: Vital Signs - 24 hr 03/24/24 13:05 Temperature 96.9 F L Pulse Rate [Pulse Oximeter] 61 Respiratory Rate 24 Blood Pressure [Ri ght Upper Arm] 151/103 H Pulse Oximetry 98 Oxygen Delivery Me thod Room Air Documenting provider has reviewed patient's vital signs: yes Course Course ED Course: I reviewed recent records, his standard regimen is IM medications, Ativan 2 mg, Benadryl 50 mg and Zofran 8 mg. I also will give him a little Toradol, 15 mg IM. I have discussed with he and his mother that I am concerned with the direction things are going, he says he has cut down on alcohol from drinking a L of hard liquor a day to just beer, obviously with daily marijuana and beer use he still is going to run into significant problems. I have encouraged him to try rehab again if he feels that that is an option for him. Otherwise, will provide medications and discharge at his request. Vital Signs Vital signs: Initial Vital Signs Temperature 96.9 F L 03/24/24 13:05 Temperature Source Temporal Artery Scan 03/24/24 13:05 Pulse Rate 61 03/24/24 13:05 Respiratory Rate 24 03/24/24 13:05 Blood Pressure 151/103 H 03/24/24 13:05 Blood Pressure Mean 119 H 03/24/24 13:05 Pulse Oximetry 98 03/24/24 13:05 Oxygen Delivery Method Room Air 03/24/24 13:05 Vital Signs Temperature 96.9 F L 03/24/24 13:05 Pulse Rate 61 03/24/24 13:05 Respiratory Rate 24 03/24/24 13:05 Blood Pressure 151/103 H 03/24/24 13:05 Pulse Oximetry 98 03/24/24 13:05 Oxygen Delivery Method Room Air 03/24/24 13:05 Temperature 96.9 F L 03/24/24 13:05 Pulse Rate 61 03/24/24 13:05 Respiratory Rate 24 03/24/24 13:05 Blood Pressure 151/103 H 03/24/24 13:05 Pulse Oximetry 98 03/24/24 13:05 Oxygen Delivery Method Room Air 03/24/24 13:05 Medications Administered Medications: Discontinued Medications Generic Name Dose Route Start Last Admin Trade Name Kleber PRN Reason Stop Dose Admin Diphenhydramine HCl 50 mg 03/24/24 13:14 03/24/24 13:41 Diphenhydramine 50 Mg/Ml Inj IM 03/24/24 13:15 50 mg ONCE ONE Administration Ketorolac Tromethamine 15 mg 03/24/24 13:14 03/24/24 13:42 Ketorolac 15 Mg/Ml Inj IM 03/24/24 13:15 15 mg ONCE ONE Administration Lorazepam 2 mg 03/24/24 13:14 03/24/24 13:42 Lorazepam 2 Mg/Ml Inj IM 03/24/24 13:15 2 mg ONCE ONE Administration Ondansetron HCl 8 mg 03/24/24 13:14 03/24/24 13:42 Ondansetron 2 Mg/Ml Inj IM 03/24/24 13:15 8 mg ONCE ONE Administration Discharge Plan Discharge Clinical Impression: Cyclical vomiting Patient Disposition: Home, Self-Care Condition: Stable Instructions: Cyclic Vomiting Syndrome (ED) Additional Instructions: Strongly support your efforts to pursue treatment for chemical dependency. Return as needed. Prescriptions: No Action lorazepam 0.5 mg tablet 0.5 mg PO DAILY PRN prochlorperazine 25 mg suppository 25 mg [place] Q12H PRN lisinopril 10 mg tablet 10 mg PO DAILY hydroxyzine HCl 25 mg tablet 25 - 50 mg PO Q6H PRN clonidine 0.3 mg/24 hr patch weekly 1 patch topical MO Hold Instructions: Pt denies Rx Instructions: WEEKLY ON MONDAYS ondansetron 4 mg tablet,disintegrating 4 mg PO Q8H PRN Patient Comments: DISSOLVE 1 TABLET ON THE TONGUE EVERY 8 HOURS NEEDED FOR NAUSEA OR VOMITING desvenlafaxine succinate 50 mg tablet extended release 24 hr 50 mg PO DAILY Rx Instructions: TOTAL DOSE = 75MG desvenlafaxine succinate 25 mg tablet extended release 24 hr 25 mg PO DAILY Rx Instructions: TOTAL DOSE = 75 MG trazodone 50 mg tablet 25 mg PO HS PRN folic acid 1 mg tablet 1 mg PO DAILY melatonin 10 mg capsule 10 mg PO HS olanzapine [Zyprexa] 5 mg tablet 5 mg PO BID PRNQty: 10 0RF Follow Up/Referrals: Deepthi Mc PA-C [Primary Care Provider] - Stand Alone Forms: [facility] Info Instructions
[2024-03-24] MEDS: diphenhydrAMINE 50 MG/ML inj IM (13:41)
[2024-03-24] MEDS: KETOROLAC 15 MG/ML inj IM (13:42)
[2024-03-24] MEDS: LORazepam 2 MG/ML inj IM (13:42)
[2024-03-24] MEDS: ONDANSETRON 2 MG/ML inj 8 MG IM (13:42)
== END 2024-03-24 13:45 | disposition home or self-care (01) ==
PROVIDERS: Emergency Provider Emergency Medicine; PCP Physician Assistant Medical
DX: R11.15 Cyclical vomiting syndrome unrelated to migraine (principal)
CPT/HCPCS: 96372; 99284; J1200; J1885; J2060; J2405

== ENCOUNTER 2024-03-26 13:55 | Outpatient (CLI) | payer BC, SELFPAY | END 2024-03-26 13:56 | disposition home or self-care (01) | LOC: AMB 03-27 12:08 | PROVIDERS: PCP Physician Assistant Medical; Visit Provider Emergency Medicine | DX: R10.9 Unspecified abdominal pain (principal); R11.2 Nausea with vomiting, unspecified | CPT/HCPCS: A0425; A0433 ==

== ENCOUNTER 2024-03-30 11:10 | Outpatient (CLI) | payer BC, SELFPAY | END 2024-03-30 11:11 | disposition home or self-care (01) | LOC: AMB 04-02 06:35 | PROVIDERS: PCP Physician Assistant Medical; Visit Provider Family Medicine | DX: F10.239 Alcohol dependence with withdrawal, unspecified (principal); F12.23 Cannabis dependence with withdrawal | CPT/HCPCS: A0425; A0433 ==

== ENCOUNTER 2024-04-19 11:08 | Emergency (ER) | payer BC, SELFPAY | END 2024-04-19 12:21 | disposition home or self-care (01) | LOC: ED 11:57 | PROVIDERS: PCP Physician Assistant Medical | DX: R11.10 Vomiting, unspecified (principal) ==

== ENCOUNTER 2024-04-20 11:31 | Emergency (ER) | payer BC, SELFPAY ==
[2024-04-20 11:39] VITALS: BP 156/93; PULSE 78; RESP 24; TEMP 36.2; O2SAT 99; BMI 31.2
--- NOTE | 2024-04-20 11:51 | ED_ITS ---
HPI - Nausea/Vomiting/Diarrhea General Chief complaint: Nausea/Vomiting Stated complaint: Tremors, vomiting Time Seen by Provider: 04/20/24 11:43 History of Present Illness HPI Narrative: This 28-year-old male has a history of cyclical vomiting syndrome related to cannabis use. He presents with similar symptoms today and states that his last marijuana use was this morning. He is somewhat agitated and constantly spitting into a bag. These are similar symptoms to other episodes for which she has been seen here several times. He does arrive with normal vital signs. Related Data Home Medications ?Medication ?Instructions ?Recorded ?Confirmed clonidine 0.3 mg/24 hr weekly 1 patch topical MO 02/13/22 01/11/24 transdermal patch desvenlafaxine succinate 50 mg 50 mg PO DAILY 02/13/22 01/11/24 tablet,extended release 24 hr hydroxyzine HCl 25 mg tablet 25 - 50 mg PO Q6H PRN 02/13/22 01/11/24 lisinopril 10 mg tablet 10 mg PO DAILY 02/13/22 01/11/24 lorazepam 0.5 mg tablet 0.5 mg PO DAILY PRN 02/13/22 04/11/23 ondansetron 4 mg disintegrating 4 mg PO Q8H PRN 02/13/22 01/11/24 tablet prochlorperazine 25 mg rectal 25 mg NM Q12H PRN 02/13/22 01/11/24 suppository desvenlafaxine succinate 25 mg 25 mg PO DAILY 08/14/22 01/11/24 tablet,extended release 24 hr folic acid 1 mg tablet 1 mg PO DAILY 08/14/22 01/11/24 melatonin 10 mg capsule 10 mg PO HS 08/14/22 04/11/23 trazodone 50 mg tablet 25 mg PO HS PRN 08/14/22 01/11/24 Previous Rx's ?Medication ?Instructions ?Recorded olanzapine 5 mg tablet (Zyprexa) 5 mg PO BID PRN #10 tabs 04/11/23 Allergies Allergy/AdvReac Type Severity Reaction Status Date / Time haloperidol [From Haldol] Allergy Verified 01/11/24 16:56 Review of Systems Status of ROS: Reports: 10 or more systems reviewed and unremarkable except as noted in History and below Narrative: Constitutional: No fevers, no weight gain or loss. Eyes: No discharge. No vision changes. HENT: No congestion, no sore throat, no ear pain. Cardiovascular: No chest pain, no palpitations. Respiratory: No shortness of breath, no wheezes, no cough. Gastrointestinal: Upper epigastric abdominal pain with persistent nausea and vomiting. Genitourinary: No dysuria, no hematuria. Musculoskeletal: Normal range of motion. Skin: No rashes, no pruritis. Neurological: No dizziness, weakness, sensory change, speech change. Endo/Heme/Allergies: No bruising or bleeding. No polydipsia. Pysch: no suicidality, no anxiety, no insomnia. All other systems reviewed and are negative. [facility] Medical History Normal colonoscopy Normal esophagogastroduodenoscopy (EGD) ?Z01.89 - Encounter for other specified special examinations (ICD-10) Cyclical vomiting ?R11.15 - Cyclical vomiting syndrome unrelated to migraine (ICD-10) Anxiety ?F41.9 - Anxiety disorder, unspecified (ICD-10) Substance abuse ?F19.10 - Other psychoactive substance abuse, uncomplicated (ICD-10) Surgical History History of myringotomy ?Z98.890 - Other specified postprocedural states (ICD-10) Social History Narrative: Patient lives in his own apartment in [place]. His mother is healthcare power of patent prosecution attorney and code status is full. History of alcohol and cannabis abuse. Current cigarette smoking. Highest level of school completed/degree received: Associate degree: occupational, technical, vocational program Smoking Status: Current every day smoker What tobacco products do you use: cigarettes Smoking packs per day: 0.5 Smoking cigarettes per day: 10.0 Years smoked: 10 Smoking pack-years: 5.00 Smoking quit date/years: >15 years ago Do you use any of these nicotine containing products: E-Cigarettes and Vaping Products Second hand tobacco smoke exposure: No How often do you have a drink containing alcohol: 4 or more times a week How many standard drinks containing alcohol do you have on a typical day: 5 or 6 How often do you have six or more drinks on one occasion: Daily or almost daily AUDIT-C Alcohol total score: 10 Non-prescribed substance use: marijuana (any form) Caffeine: Yes service: No Exam Narrative: Exam Narrative: Constitutional: Well-developed, well-nourished, no acute distress. HEENT: Normocephalic, atraumatic. Neck: Normal range of motion. Nontender. Supple. Heart: Intact distal pulses. Lungs: No chest discomfort. No wheezes, rhonchi, or rales. Abdomen: Upper epigastric tenderness. Back: Normal range of motion. Extremities: Normal range of motion. No injury. Skin: Intact. No rash. Warm. No erythema or pallor. Neurologic: No altered sensation. No weakness. Alert and oriented. Psychiatric: No suicidality. No anxiety or depression. No insomnia. Nursing notes and vitals signs are reviewed. Const: Vital Signs, click to edit/add: Vital Signs - 24 hr 04/20/24 11:39 04/20/24 12:34 Temperature 97.1 F L Pulse Rate [Pulse Oximeter] 78 Respiratory Rate 24 Blood Pressure [Ri ght Upper Arm] 156/93 H Pulse Oximetry 99 99 Oxygen Delivery Me thod Room Air Course Vital Signs Vital signs: Initial Vital Signs Temperature 97.1 F L 04/20/24 11:39 Temperature Source Temporal Artery Scan 04/20/24 11:39 Pulse Rate 78 04/20/24 11:39 Respiratory Rate 24 04/20/24 11:39 Blood Pressure 156/93 H 04/20/24 11:39 Blood Pressure Mean 114 H 04/20/24 11:39 Blood Pressure Position Sitting 04/20/24 11:39 Pulse Oximetry 99 04/20/24 11:39 Oxygen Delivery Method Room Air 04/20/24 11:39 Vital Signs Temperature 97.1 F L 04/20/24 11:39 Pulse Rate 78 04/20/24 11:39 Respiratory Rate 24 04/20/24 11:39 Blood Pressure 156/93 H 04/20/24 11:39 Pulse Oximetry 99 04/20/24 11:39 Oxygen Delivery Method Room Air 04/20/24 11:39 Temperature 97.1 F L 04/20/24 11:39 Pulse Rate 78 04/20/24 11:39 Respiratory Rate 24 04/20/24 11:39 Blood Pressure 156/93 H 04/20/24 11:39 Pulse Oximetry 99 04/20/24 12:34 Oxygen Delivery Method Room Air 04/20/24 11:39 Medications Administered Medications: Discontinued Medications Generic Name Dose Route Start Last Admin Trade Name Kleber PRN Reason Stop Dose Admin Diphenhydramine HCl 50 mg 04/20/24 11:47 04/20/24 12:16 Diphenhydramine 50 Mg/Ml Inj IVP 04/20/24 11:48 50 mg ONCE ONE Administration Epinephrine HCl 0.3 mg 04/20/24 12:26 04/20/24 12:21 Epinephrine 0.3 Mg Pen IM 04/20/24 12:27 0.3 mg ONCE ONE Administration Olanzapine 5 mg 04/20/24 11:47 04/20/24 12:16 Olanzapine 5 Mg/Ml Inj IV 04/20/24 11:48 5 mg ONCE ONE Administration MDM - Nausea/Vomiting/Diarrhea MDM Narrative Medical decision making narrative: This patient has recurrent episodes of cyclical vomiting related to cannabis use. An IV was established here where the patient received a L of normal saline, Toradol 30 mg, Zofran 8 mg, Benadryl 50 mg, and Zyprexa 5 mg. As the nurse was administering Zyprexa the patient started to complain of swelling in his mouth so he received about half of this dose. He is no longer having any nausea or vomiting symptoms. The patient has a history of various reactions as he has been seen many times in this emergency department. It was noted on the video monitor that prior to this he was sticking his finger into his mouth to initiate vomiting. I went into examine him in he has a normal appearing airway. The patient did receive epinephrine 0.3 mg intramuscularly as of protective treatment. He also received IV dose of Solu-Medrol the patient is doing well and fell asleep meanwhile maintaining sufficient normal vital signs. He is okay to be discharged home and encouraged not to use street drugs or alcohol. ECG Data Attestation: I personally reviewed and interpreted this ECG as follows: Interpretation: Normal sinus rhythm. Rate is 80 beats per minute. There are no ST or T-wave abnormalities. Discharge Plan Discharge Clinical Impression: Cyclical vomiting Patient Disposition: Home w/ Parent or Adult Condition: Improved Additional Instructions: Continue current plans. Avoid marijuana, alcohol, and other street drugs. Follow up with MD for ongoing management. Prescriptions: No Action lorazepam 0.5 mg tablet 0.5 mg PO DAILY PRN prochlorperazine 25 mg suppository 25 mg NM Q12H PRN lisinopril 10 mg tablet 10 mg PO DAILY hydroxyzine HCl 25 mg tablet 25 - 50 mg PO Q6H PRN clonidine 0.3 mg/24 hr patch weekly 1 patch topical MO Hold Instructions: Pt denies Rx Instructions: WEEKLY ON MONDAYS ondansetron 4 mg tablet,disintegrating 4 mg PO Q8H PRN Patient Comments: DISSOLVE 1 TABLET ON THE TONGUE EVERY 8 HOURS NEEDED FOR NAUSEA OR VOMITING desvenlafaxine succinate 50 mg tablet extended release 24 hr 50 mg PO DAILY Rx Instructions: TOTAL DOSE = 75MG desvenlafaxine succinate 25 mg tablet extended release 24 hr 25 mg PO DAILY Rx Instructions: TOTAL DOSE = 75 MG trazodone 50 mg tablet 25 mg PO HS PRN folic acid 1 mg tablet 1 mg PO DAILY melatonin 10 mg capsule 10 mg PO HS olanzapine [Zyprexa] 5 mg tablet 5 mg PO BID PRNQty: 10 0RF Follow Up/Referrals: Deepthi Mc PA-C [Primary Care Provider] - Stand Alone [facility]: [facility]
[2024-04-20] MEDS: diphenhydrAMINE 50 MG/ML inj IVP (12:16)
[2024-04-20] MEDS: OLANZapine 5 MG/ML inj IV (12:16)
[2024-04-20] MEDS: EPINEPHrine 0.3 MG PEN IM (12:21)
--- NOTE | 2024-04-20 12:28 | ED.NURSE ---
While pushing zyprexa slowly, pt began to complaint of jaw pain, throat tightness, and inability to breathe. Pt face became dusky and blue. Placed on monitors. MD called to bedside. Verbal orders received for Epi 0.3mg IM. Pt placed on oxymask. Benadryl administered. Holding zofran and toradol for time being.
[2024-04-20 12:34] VITALS: O2SAT 98; O2SAT 99
[2024-04-20] MEDS: ONDANSETRON 2 MG/ML inj 8 MG IVP (13:45)
[2024-04-20] MEDS: KETOROLAC 30 MG/ML inj IVP (13:50)
[2024-04-20] MEDS: METHYLPREDNISOLONE SOD SUCC 62.5 MG/ML (125) 125 MG IVP (13:50)
[2024-04-20] MEDS: 0.9 % SODIUM CHLORIDE 1000 ml 1,000 ML IV (13:55)
[2024-04-20 14:50] VITALS: BP 135/92; PULSE 78; RESP 20; O2SAT 99
== END 2024-04-20 14:51 | disposition home or self-care (01) ==
PROVIDERS: Emergency Provider Emergency Medicine Emergency Medical Services; PCP Physician Assistant Medical
DX: R11.10 Vomiting, unspecified (principal); F12.90 Cannabis use, unspecified, uncomplicated
CPT/HCPCS: 93005; 94761; 96372; 96374; 96375; 99284; J0171; J1200; J1885; J2405; J2919; J7030

== ENCOUNTER 2024-05-10 11:27 | Emergency (ER) | payer BC, SELFPAY ==
[2024-05-10 11:37] VITALS: BP 165/98; PULSE 90; RESP 18; TEMP 36.5; O2SAT 98; BMI 32.5
--- NOTE | 2024-05-10 12:02 | ED_ITS ---
HPI - General Adult General Date Seen: 05/10/24 Chief complaint: Anxiety Stated complaint: Vomiting, tremors Time Seen by Provider: 05/10/24 11:57 Source: patient Mode of arrival: ambulatory Limitations: no limitations History of Present Illness HPI narrative: Patient is a 28-year-old with a history of cyclic vomiting, marijuana and alcohol overuse. He presents with his typical symptoms of nausea, vomiting and tremulousness which started yesterday. Last time I saw him, in March, he had gone through rehab program but had relapsed in using marijuana and alcohol. He at that time said he had a plan to resume rehab, today he says there has been ?a lot of family shit going on and he has not considered looking into rehab further. He says his dad has been here from the [facility] and his sister is not doing well. His mom is with him, she reports that she isn't sure what rehab facility would be best for him. He does not have any unusual or atypical symptoms today. He requests his standard medications which include IM Ativan, Toradol, Zofran and Benadryl. Related Data Home Medications ?Medication ?Instructions ?Recorded ?Confirmed clonidine 0.3 mg/24 hr weekly 1 patch topical MO 02/13/22 01/11/24 transdermal patch desvenlafaxine succinate 50 mg 50 mg PO DAILY 02/13/22 01/11/24 tablet,extended release 24 hr hydroxyzine HCl 25 mg tablet 25 - 50 mg PO Q6H PRN 02/13/22 01/11/24 lisinopril 10 mg tablet 10 mg PO DAILY 02/13/22 01/11/24 lorazepam 0.5 mg tablet 0.5 mg PO DAILY PRN 02/13/22 04/11/23 ondansetron 4 mg disintegrating 4 mg PO Q8H PRN 02/13/22 01/11/24 tablet prochlorperazine 25 mg rectal 25 mg NM Q12H PRN 02/13/22 01/11/24 suppository desvenlafaxine succinate 25 mg 25 mg PO DAILY 08/14/22 01/11/24 tablet,extended release 24 hr folic acid 1 mg tablet 1 mg PO DAILY 08/14/22 01/11/24 melatonin 10 mg capsule 10 mg PO HS 08/14/22 04/11/23 trazodone 50 mg tablet 25 mg PO HS PRN 08/14/22 01/11/24 Previous Rx's ?Medication ?Instructions ?Recorded olanzapine 5 mg tablet (Zyprexa) 5 mg PO BID PRN #10 tabs 04/11/23 Allergies Allergy/AdvReac Type Severity Reaction Status Date / Time haloperidol [From Haldol] Allergy Verified 01/11/24 16:56 olanzapine [From Zyprexa] AdvReac Intermediate Cramping Verified 05/10/24 12:29 of the Muscles Review of Systems Status of ROS: Reports: 6 or more systems reviewed and unremarkable except as noted in History and below [facility] Medical History Normal colonoscopy Normal esophagogastroduodenoscopy (EGD) ?Z01.89 - Encounter for other specified special examinations (ICD-10) Cyclical vomiting ?R11.15 - Cyclical vomiting syndrome unrelated to migraine (ICD-10) Anxiety ?F41.9 - Anxiety disorder, unspecified (ICD-10) Substance abuse ?F19.10 - Other psychoactive substance abuse, uncomplicated (ICD-10) Surgical History History of myringotomy ?Z98.890 - Other specified postprocedural states (ICD-10) Social History Narrative: Patient lives in his own apartment in [place]. His mother is healthcare power of criminal attorney and code status is full. History of alcohol and cannabis abuse. Current cigarette smoking. Highest level of school completed/degree received: Associate degree: occupational, technical, vocational program Smoking Status: Current every day smoker What tobacco products do you use: cigarettes Smoking packs per day: 0.5 Smoking cigarettes per day: 10.0 Years smoked: 10 Smoking pack-years: 5.00 Smoking quit date/years: >15 years ago Do you use any of these nicotine containing products: E-Cigarettes and Vaping Products Second hand tobacco smoke exposure: No How often do you have a drink containing alcohol: 4 or more times a week How many standard drinks containing alcohol do you have on a typical day: 5 or 6 How often do you have six or more drinks on one occasion: Daily or almost daily AUDIT-C Alcohol total score: 10 Non-prescribed substance use: marijuana (any form) Caffeine: Yes service: No Exam Narrative: Exam Narrative: Vital signs as noted above. In general, an alert, nontoxic young man. He is lying in a darkened room with music playing, drinking copious amounts of water. Head: Normocephalic, atraumatic. Eyes: Pupils are equal reactive. Extraocular movements are full. Conjunctivae are normal. ENT: Mucous membranes are moist. Neck: Supple without lymphadenopathy. Heart: Regular rate and rhythm. No murmur or rub. Lungs: Clear bilaterally. No increased work of breathing, crackles or wheezes. Abdomen: Soft and nontender. Neurologic: Patient is alert and oriented to person and place. Speech is fluent. Face is symmetric. Moves all extremities equally. Affect: Anxious. Skin: Warm and dry. Well perfused. Const: Vital Signs, click to edit/add: Vital Signs - 24 hr 05/10/24 11:37 05/10/24 12:29 Temperature 97.7 F Pulse Rate [Right Pulse Oximeter] 90 74 Respiratory Rate 18 Blood Pressure [Ri ght Upper Arm] 165/98 H Pulse Oximetry 98 95 Oxygen Delivery Me thod Room Air Room Air Documenting provider has reviewed patient's vital signs: yes Course Course ED Course: Medications ordered as per usual. His vital signs are normal, I do not see any indication for additional testing or IV fluids today. I have as usual encouraged him to pursue rehab. He and his mother seem to understand that his symptoms are directly related to his marijuana use. He typically requests discharge immediately after medications are given. Feeling markedly improved, requests discharge. Return as needed. Vital Signs Vital signs: Initial Vital Signs Temperature 97.7 F 05/10/24 11:37 Temperature Source Temporal Artery Scan 05/10/24 11:37 Pulse Rate 90 05/10/24 11:37 Respiratory Rate 18 05/10/24 11:37 Blood Pressure 165/98 H 05/10/24 11:37 Blood Pressure Mean 120 H 05/10/24 11:37 Blood Pressure Position Sitting 05/10/24 11:37 Pulse Oximetry 98 05/10/24 11:37 Oxygen Delivery Method Room Air 05/10/24 11:37 Vital Signs Temperature 97.7 F 05/10/24 11:37 Pulse Rate 90 05/10/24 11:37 Respiratory Rate 18 05/10/24 11:37 Blood Pressure 165/98 H 05/10/24 11:37 Pulse Oximetry 98 05/10/24 11:37 Oxygen Delivery Method Room Air 05/10/24 11:37 Temperature 97.7 F 05/10/24 11:37 Pulse Rate 74 05/10/24 12:29 Respiratory Rate 18 05/10/24 11:37 Blood Pressure 165/98 H 05/10/24 11:37 Pulse Oximetry 95 05/10/24 12:29 Oxygen Delivery Method Room Air 05/10/24 12:29 Medications Administered Medications: Discontinued Medications Generic Name Dose Route Start Last Admin Trade Name Freq PRN Reason Stop Dose Admin Diphenhydramine HCl 25 mg 05/10/24 12:01 05/10/24 12:14 Diphenhydramine 50 Mg/Ml Inj IM 05/10/24 12:02 25 mg ONCE ONE Administration Ketorolac Tromethamine 15 mg 05/10/24 12:01 05/10/24 12:09 Ketorolac 15 Mg/Ml Inj IM 05/10/24 12:02 15 mg ONCE ONE Administration Lorazepam 2 mg 05/10/24 12:01 05/10/24 12:25 Lorazepam 2 Mg/Ml Inj IM 05/10/24 12:02 2 mg ONCE ONE Administration Ondansetron HCl 4 mg 05/10/24 12:01 05/10/24 12:09 Ondansetron 2 Mg/Ml Inj IM 05/10/24 12:02 4 mg ONCE ONE Administration Discharge Plan Discharge Clinical Impression: Cyclical vomiting Patient Disposition: Home, Self-Care Condition: Stable Instructions: Cyclic Vomiting Syndrome (ED) Additional Instructions: Return as needed. Recommend rehab facility for help with substance use. Prescriptions: No Action lorazepam 0.5 mg tablet 0.5 mg PO DAILY PRN prochlorperazine 25 mg suppository 25 mg NM Q12H PRN lisinopril 10 mg tablet 10 mg PO DAILY hydroxyzine HCl 25 mg tablet 25 - 50 mg PO Q6H PRN clonidine 0.3 mg/24 hr patch weekly 1 patch topical MO Hold Instructions: Pt denies Rx Instructions: WEEKLY ON MONDAYS ondansetron 4 mg tablet,disintegrating 4 mg PO Q8H PRN Patient Comments: DISSOLVE 1 TABLET ON THE TONGUE EVERY 8 HOURS NEEDED FOR NAUSEA OR VOMITING desvenlafaxine succinate 50 mg tablet extended release 24 hr 50 mg PO DAILY Rx Instructions: TOTAL DOSE = 75MG desvenlafaxine succinate 25 mg tablet extended release 24 hr 25 mg PO DAILY Rx Instructions: TOTAL DOSE = 75 MG trazodone 50 mg tablet 25 mg PO HS PRN folic acid 1 mg tablet 1 mg PO DAILY melatonin 10 mg capsule 10 mg PO HS olanzapine [Zyprexa] 5 mg tablet 5 mg PO BID PRNQty: 10 0RF Follow Up/Referrals: Deepthi Mc PA-C [Primary Care Provider] - [facility]one [facility] Inst[facility]
[2024-05-10] MEDS: ONDANSETRON 2 MG/ML inj 4 MG IM (12:09)
[2024-05-10] MEDS: KETOROLAC 15 MG/ML inj IM (12:09)
[2024-05-10] MEDS: diphenhydrAMINE 50 MG/ML inj 25 MG IM (12:14)
[2024-05-10] MEDS: LORazepam 2 MG/ML inj IM (12:25)
[2024-05-10 12:29] VITALS: PULSE 74; O2SAT 95
== END 2024-05-10 13:13 | disposition home or self-care (01) ==
LOC: ED 12:25
PROVIDERS: Emergency Provider Emergency Medicine; PCP Physician Assistant Medical
DX: R11.15 Cyclical vomiting syndrome unrelated to migraine (principal)
CPT/HCPCS: 96372; 99283; J1200; J1885; J2060; J2405

== ENCOUNTER 2024-05-11 17:28 | Inpatient (IN) | payer BC, SELFPAY ==
[2024-05-11] VITALS (8 sets, daily range): BP systolic 127–197; BP diastolic 75–125; PULSE 77–117; RESP 18–22; TEMP 35.6–36.7; O2SAT 93–99; BMI 32.5
--- NOTE | 2024-05-11 18:22 | ED.GENADULT ---
HPI - General Adult General Date Seen: 05/11/24 Chief complaint: Abdominal Pain Stated complaint: Vomiting, tremors Time Seen by Provider: 05/11/24 18:03 History of Present Illness HPI narrative: 28-year-old male presenting to the ER today with his mother with concern for intractable nausea and vomiting. They report that he has a history of cyclic vomiting syndrome and also that he has had that she will marijuana use and recently also alcohol abuse. These are known diagnoses for him. He has been entertaining therapy in the past but has not been able to go recently because of in other family crises. He does experience episodes of nausea and vomiting periodically and has several prior visits to the ER. He knows typical regimen of medication that helps symptoms get better (intramuscular Toradol, Zofran, Ativan, and Benadryl). His current episode of nausea and vomiting started 2 days ago on Friday. He reports many episodes of nonbilious, nonbloody emesis. Not much abdominal pain. No diarrhea. In fact no bowel movements. He has not had any fever. He also gets very anxious and sometimes he has trouble moving his tongue which waxes and wanes. He typically drinks about 0.5 L of hard alcohol per day. Stop drinking on Friday. He has no history of serious alcohol withdrawal in the past. He does smoke marijuana almost every day He was seen in the ER yesterday and was treated with his typical round medications and got better so was discharged. He has been trying to stay hydrated by drinking lots of water. He has not been eating much solid food. His mother notes that he has been drinking some Gatorade as well. Today he had ongoing repetitive vomiting at home and came back to the ER for uncontrolled symptoms. Still no abdominal pain. No diarrhea. Related Data Home Medications ?Medication ?Instructions ?Recorded ?Confirmed clonidine 0.3 mg/24 hr weekly 1 patch topical MO 02/13/22 05/11/24 transdermal patch desvenlafaxine succinate 50 mg 50 mg PO DAILY 02/13/22 05/11/24 tablet,extended release 24 hr hydroxyzine HCl 25 mg tablet 25 - 50 mg PO Q6H PRN 02/13/22 05/11/24 lisinopril 10 mg tablet 10 mg PO DAILY 02/13/22 05/11/24 lorazepam 0.5 mg tablet 0.5 mg PO DAILY PRN 02/13/22 05/11/24 ondansetron 4 mg disintegrating 4 mg PO Q8H PRN 02/13/22 05/11/24 tablet prochlorperazine 25 mg rectal 25 mg AL Q12H PRN 02/13/22 05/11/24 suppository desvenlafaxine succinate 25 mg 25 mg PO DAILY 08/14/22 05/11/24 tablet,extended release 24 hr melatonin 10 mg capsule 10 mg PO HS 08/14/22 05/11/24 trazodone 50 mg tablet 25 mg PO HS PRN 08/14/22 05/11/24 Previous Rx's ?Medication ?Instructions ?Recorded olanzapine 5 mg tablet (Zyprexa) 5 mg PO BID PRN #10 tabs 04/11/23 Allergies Allergy/AdvReac Type Severity Reaction Status Date / Time haloperidol [From Haldol] Allergy Verified 05/11/24 17:58 olanzapine [From Zyprexa] AdvReac Intermediate Cramping Verified 05/11/24 17:58 of the Muscles PFSH [facility] Medical History (Updated 05/11/24 @ 23:28 by Liyah Alfaro MD) Cannabinoid hyperemesis syndrome ?R11.2 - Nausea with vomiting, unspecified (ICD-10) ?F12.90 - Cannabis use, unspecified, uncomplicated (ICD-10) Cannabinosis ?J66.2 - Cannabinosis (ICD-10) Severe anxiety with panic ?F41.0 - Panic disorder [episodic paroxysmal anxiety] (ICD-10) Normal colonoscopy Normal esophagogastroduodenoscopy (EGD) ?Z01.89 - Encounter for other specified special examinations (ICD-10) Cyclical vomiting ?R11.15 - Cyclical vomiting syndrome unrelated to migraine (ICD-10) Anxiety ?F41.9 - Anxiety disorder, unspecified (ICD-10) Substance abuse ?F19.10 - Other psychoactive substance abuse, uncomplicated (ICD-10) Surgical History History of myringotomy ?Z98.890 - Other specified postprocedural states (ICD-10) Family History (Updated 05/11/24 @ 22:34 by Liyah Alfaro MD) Father Alcohol dependence Drug dependence Suicidal behavior with attempted self-injury Social History (Updated 05/11/24 @ 22:35 by Liyah Alfaro MD) Narrative: Patient lives with his mother and stepfather; 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 His mother is healthcare power of insurance defense attorney and code status is full. History of alcohol and cannabis abuse. Current cigarette smoking. What is your current living situation?: I presently have a place to live Problems where you live: unable to answer Problems where you live details: None In the past 12 months, utilities in danger of being shut off: no In past 12 months, lack of transportation kept you from medical appts, meetings, work, or getting things needed for daily living: no In the past 12 mos, have been you worried that your food would run out before you had money to buy more?: never true In the past 12 mos, the food you bought just didn't last and you didn't have money to buy more?: never true Highest level of school completed/degree received: Associate degree: occupational, technical, vocational program Smoking Status: Current every day smoker What tobacco products do you use: cigarettes Smoking packs per day: 0.5 Smoking cigarettes per day: 10.0 Years smoked: 10 Smoking pack-years: 5.00 Smoking quit date/years: >15 years ago Do you use any of these nicotine containing products: E-Cigarettes and Vaping Products Second hand tobacco smoke exposure: No How often do you have a drink containing alcohol: 4 or more times a week Alcohol type: hard liquor How many standard drinks containing alcohol do you have on a typical day: 5 or 6 How often do you have six or more drinks on one occasion: Daily or almost daily AUDIT-C Alcohol total score: 10 Non-prescribed substance use: marijuana (any form) Caffeine: Yes How often does anyone, including family, friends and others, physically hurt you: never How often does anyone, including family, friends and others, insult or talk down to you: never How often does anyone, including family, friends and others, threaten you with harm: never How often does anyone, including family, friends and others, scream or curse at you: never service: No Exam Narrative: Exam Narrative: Constitutional: Appears well-developed and well-nourished. Alert. He is actively retching and rolling on the bed. He is restless and flopping from side to side on the bed. At times he gets up and does some retching into the sink. Mostly his retching into an emesis bag. He does produce small volume of clear watery emesis. No bloody emesis. HENT: Head: Atraumatic. Nose: Nose normal. Mouth/Throat: Oral mucosa is clear and moist. no trismus. Pharynx normal. Tonsils symmetric. No tonsillar enlargement, erythema, or exudate. Complains that his tongue is swollen but on exam he does not have any swelling. He does seem to be holding his right side of his tongue against the hard palate of his mouth. This is either behavioral or possibly some sort of dystonia or tardive dyskinesia. No signs of tongue swelling, angioedema, allergic reaction, or any airway compromise. Eyes: Conjunctivae normal. EOM normal. Pupils equal, round, and reactive to light. No scleral icterus. Neck: Normal range of motion. Neck supple. No tracheal deviation present. Cardiovascular: Normal rate, regular rhythm. No gallop. No friction rub. No murmur heard. Symmetric radial artery pulses Pulmonary/Chest: Effort normal. No stridor. No respiratory distress. No wheezes. No rales. No rhonchi . No tenderness. Abdominal: Soft. Bowel sounds normal. No distension. Non tympanic. No mass. No tenderness. No rebound. No guarding. Musculoskeletal: RUE: Normal range of motion. No tenderness. No deformity LUE: Normal range of motion. No tenderness. No deformity RLE: Normal range of motion. No edema. No tenderness. No deformity LLE: Normal range of motion. No edema. No tenderness. No deformity Neurological: Alert and oriented to person, place, and time. Normal strength. CN II-VII intact. No sensory deficit. GCS eye subscore is 4. GCS verbal subscore is 5. GCS motor subscore is 6. Normal coordination Skin: Skin is warm and dry. No rash noted. No pallor. Normal capillary refill. Psychiatric: Anxious. Actively retching. No tremor. No signs of alcohol withdrawal per Const: Vital Signs, click to edit/add: Vital Signs - 24 hr 05/11/24 17:39 05/11/24 21:00 Temperature 96.6 F L 98.0 F Pulse Rate [Right Pulse Oximeter] 117 H 90 Respiratory Rate 20 22 Blood Pressure [Ri ght Upper Arm] 197/125 H 140/80 H Pulse Oximetry 93 97 Oxygen Delivery Me thod Room Air Room Air Course Vital Signs Vital signs: Initial Vital Signs Temperature 96.6 F L 05/11/24 17:39 Temperature Source Temporal Artery Scan 05/11/24 17:39 Pulse Rate 117 H 05/11/24 17:39 Pulse Rhythm Regular 05/11/24 17:39 Respiratory Rate 20 05/11/24 17:39 Blood Pressure 197/125 H 05/11/24 17:39 Blood Pressure Mean 149 H 05/11/24 17:39 Blood Pressure Position Supine 05/11/24 17:39 Pulse Oximetry 93 05/11/24 17:39 Oxygen Delivery Method Room Air 05/11/24 17:39 Vital Signs Temperature 96.6 F L 05/11/24 17:39 Pulse Rate 117 H 05/11/24 17:39 Respiratory Rate 20 05/11/24 17:39 Blood Pressure 197/125 H 05/11/24 17:39 Pulse Oximetry 93 05/11/24 17:39 Oxygen Delivery Method Room Air 05/11/24 17:39 Temperature 96.1 F L 05/11/24 23:00 Pulse Rate 77 05/11/24 23:00 Respiratory Rate 18 05/11/24 23:40 Blood Pressure 127/75 05/11/24 23:00 Pulse Oximetry 99 05/11/24 23:40 Oxygen Delivery Method Aerosol Mask 05/11/24 23:40 Oxygen Flow Rate 1.5 05/11/24 23:40 Medications Administered Medications: Generic Name Dose Route Start Last Admin Trade Name Abimaelq PRN Reason Stop Dose Admin Acetaminophen 1,300 mg 05/11/24 21:29 05/11/24 22:45 Acetaminophen 650 Mg Tablet Er PO 1,300 mg Q8H JOSE Administration Potassium Chloride 10 meq in 100 mls @ 100 mls/hr 05/11/24 22:15 05/11/24 23:48 Potassium Chloride IVPB 05/12/24 03:44 100 mls/hr Q90M JOSE Administration Sodium Chloride 1,000 mls @ 125 mls/hr 05/11/24 23:03 05/11/24 22:40 0.9 % Sodium Chloride 1000 Ml IV 125 mls/hr .Q8H JOSE Administration Lorazepam 1 - 4 mg 05/11/24 21:29 05/11/24 23:46 Lorazepam 2 Mg/Ml Inj IVP 2 mg Q1H PRN Administration Protocol Metoprolol Tartrate 5 mg 05/11/24 22:45 05/11/24 23:23 Metoprolol Tartrate 1 Mg/Ml Inj IVP Not Given Q4H JOSE Discontinued Medications Generic Name Dose Route Start Last Admin Trade Name Freq PRN Reason Stop Dose Admin Diphenhydramine HCl 50 mg 05/11/24 18:24 05/11/24 18:56 Diphenhydramine 50 Mg/Ml Inj IM 05/11/24 18:25 50 mg ONCE ONE Administration Sodium Chloride 500 mls @ 500 mls/hr 05/11/24 19:31 05/11/24 21:17 0.9 % Sodium Chloride 500 Ml IV 05/11/24 20:30 Infused .Q1H ONE Infusion Potassium Chloride 10 meq in 100 mls @ 100 mls/hr 05/11/24 19:32 05/11/24 21:17 Potassium Chloride IVPB 05/11/24 20:31 Infused ONCE ONE Infusion Ketorolac Tromethamine 30 mg 05/11/24 18:24 05/11/24 18:57 Ketorolac 30 Mg/Ml Inj IM 05/11/24 18:25 30 mg ONCE ONE Administration Lorazepam 2 mg 05/11/24 18:24 05/11/24 21:47 Lorazepam 2 Mg/Ml Inj IM 05/11/24 18:25 Not Given ONCE ONE Lorazepam 1 mg 05/11/24 19:48 05/11/24 20:22 Lorazepam 2 Mg/Ml Inj IVP 05/11/24 19:49 1 mg ONCE ONE Administration Metoclopramide HCl 10 mg 05/11/24 19:48 05/11/24 20:22 Metoclopramide Hcl 5 Mg/Ml Inj IVP 05/11/24 19:49 10 mg ONCE ONE Administration Midazolam HCl 2 mg 05/11/24 18:36 05/11/24 19:00 Midazolam Hcl 1 Mg/Ml Inj IM 05/11/24 18:37 2 mg ONCE ONE Administration Ondansetron HCl 8 mg 05/11/24 18:24 05/11/24 18:59 Ondansetron 2 Mg/Ml Inj IM 05/11/24 18:25 8 mg ONCE ONE Administration Pantoprazole Sodium 40 mg 05/11/24 21:29 05/11/24 22:40 Pantoprazole Sodium 40 Mg Inj IVP 05/11/24 21:30 40 mg ONCE ONE Administration Phenobarbital 260 mg 05/11/24 20:30 05/11/24 21:41 Phenobarbital 65 Mg/Ml Inj IVP 05/11/24 20:31 260 mg ONCE ONE Administration Medical Decision Making MDM Narrative Medical decision making narrative: 28-year-old male with a history of cyclic vomiting syndrome, also history of ongoing alcohol and marijuana abuse. He returns to the ER today for uncontrolled nausea and vomiting and inability to keep any food or much water down. He is also very restless and anxious. He also feels as though his tongue is moving abnormally or possibly swollen and his mouth. 1. GI. Does have significant nausea and vomiting with repetitive retching and vomiting here in the ER. Likely cyclic vomiting syndrome. Abdominal exam is actually nontender and nondistended. At this point no exam evidence for bowel obstruction, or other acute surgical pathology. [place] [id number], unclear etiology. Given reassuring exam would hold off on CT of his abdomen/pelvis for now because of radiation risk at his young age. Lipase normal. Liver function tests are mildly abnormal with a total bilirubin of 2.2 and an AST of 42. Alk-phos is normal at 118. Not really a an obstructive pattern. Suspect this is probably related to his reported alcohol abuse. 2. Psych/substance abuse. Patient does report a history of daily marijuana use which could be contributing to his episodes of vomiting and pain. Also fairly frequent heavy alcohol use the past couple of months. He is very restless here in the ER and is flopping from side to side but he is not otherwise tremulous. He is somewhat tachycardic and hypertensive. Consider possible some component of alcohol withdrawal contributing. Not really having any seizure activity. He received his typical combination of meds for his nausea and vomiting with limited success. He had ongoing anxiety here for which we administered serial doses of benzos. With consideration for possible alcohol withdrawal, in discussion with the accepting hospitalist, will start him on phenobarbital as well. Urine drug screen is positive for benzodiazepines (which we administered him here in the ER) and marijuana, which she reports. Alcohol level negative. 3. Renal/electrolytes. Laboratory workup shows hyponatremia. Suspect this is probably due to his repetitive vomiting and frequent guzzling of water. Suspect he has probably been drinking so much free water that he is exceeding his cell you intake to keep his sodium level up. Small bolus of saline ordered here in the ER. Discussed with the patient and his mother that we need to stick with free water and fluid restriction. Within 1 minute of my verbal for free water restriction, while I was still at the patient's bedside, the patient is behaviorally trying to grab it is water and drink it. I had nursing staff move the his bottles away from his bedside. He was also trying to drink from the sink. We may have to turn off the water in his sink to help him restrict free water. He also has hypokalemia. Suspect this is probably due to GI losses. Magnesium normal. He is not able to tolerate oral potassium supplements. First dose of IV potassium ordered here in the ER EKG does not show prolonged QT or other arrhythmia. He will require hospitalization for repletion of his low electrolytes as well as treatment of his ongoing nausea and vomiting. Discussed with our hospitalist, Dr. Alfaro who graciously accepts. Lab Data Labs: Lab Results 05/11/24 Range/Units 18:47 WBC 14.21 H (4.50-11.00) K/uL RBC 5.35 (4.30-5.90) m/uL Hgb 15.4 (13.5-17.5) gm/dL Hct 43.9 (37.0-53.0) % MCV 82 (80-100) fL MCH 29 (26-34) pg MCHC 35 (32-36) gm/dL RDW Coeff of Belia 13.5 (11.5-15.5) % Plt Count 397 (140-440) K/uL Neut % (Auto) 80.7 H (42.0-72.0) % Lymph % (Auto) 10.0 L (20-44) % [place] % (Auto) 9.1 (0.0-11.0) % Eos % (Auto) 0.0 (0.0-7.0) % Baso % (Auto) 0.0 (0.0-3.0) % Neut # (Auto) 11.50 H (1.7-7.0) K/uL Lymph # (Auto) 1.40 (0.90-2.90) K/uL [place] # (Auto) 1.30 H (0.00-0.90) K/UL Eos # (Auto) 0.00 (0.00-0.50) K/uL Baso # (Auto) 0.00 (0.00-0.30) K/uL Abs Immat Gran (auto) 0.00 (0.00-0.30) K/uL Imm/Tot Granulo (auto) 0.2 % Sodium 122 L* (135-149) mmol/L Potassium 2.8 L* (3.6-5.1) mmol/L Chloride 74 L (96-114) mmol/L Carbon Dioxide 32 (20-32) mmol/L Anion Gap 16 H (7-15) mEq/L BUN 23 (5-24) mg/dL Creatinine 1.1 (0.5-1.5) mg/dL Estimated Creat Clear 109.74 Estimated GFR 94 ml/min Glucose 115 (60-115) mg/dL Calcium 10.2 (8.4-10.6) mg/dL Magnesium 2.3 (1.5-2.6) mg/dL Total Bilirubin 2.2 H (0.1-1.5) mg/dL AST 42 H (12-35) U/L ALT 29 (4-50) U/L Alkaline Phosphatase 118 (40-150) U/L C-Reactive Protein 1.1 H (0.5-1.0) mg/dL Total Protein 8.5 H (6.0-8.3) g/dL Albumin 5.4 H (3.3-5.0) g/dL Lipase 68 (23-300) U/L TSH 0.482 (0.270-4.200) uIU/mL Acetaminophen < 10.0 L (10.0-30.0) ug/mL Ethyl Alcohol < 0.01 L (0.01-0.03) % Lab Acknowledgement New Spec Needed
[2024-05-11 18:52] LABS: Hematocrit 43.9 % (37.0-53.0); Hemoglobin* 15.4 gm/dL (13.5-17.5); Immature Granulocytes Pct Auto 0.2 %; Mean Corpuscular HGB Conc 35 gm/dL (32-36); Mean Corpuscular Hemoglobin 29 pg (26-34); Mean Corpuscular Volume 82 fL (80-100); Monocytes Percent Auto 9.1 % (0.0-11.0); Neutrophils Percent Auto 80.7 % (42.0-72.0); Platelet Count* 397 K/uL (140-440); RDW Coefficient of Variation % 13.5 % (11.5-15.5); Red Blood Count 5.35 m/uL (4.30-5.90); White Blood Count* 14.21 K/uL (4.50-11.00)
[2024-05-11] MEDS: diphenhydrAMINE 50 MG/ML inj IM (18:56)
[2024-05-11] MEDS: KETOROLAC 30 MG/ML inj IM (18:57)
[2024-05-11 18:59] LABS: Slide Review Reflex No
[2024-05-11] MEDS: ONDANSETRON 2 MG/ML inj 8 MG IM (18:59)
[2024-05-11] MEDS: MIDAZOLAM HCL 1 MG/ML inj 2 MG IM (19:00)
[2024-05-11 19:15] LABS: Albumin* 5.4 g/dL (3.3-5.0); Chloride* 74 mmol/L (96-114)
[2024-05-11 19:18] LABS: Blood Urea Nitrogen* 23 mg/dL (5-24); Lipase* 68 U/L (23-300)
[2024-05-11 19:19] LABS: Alanine Aminotransferase* 29 U/L (4-50); Calcium* 10.2 mg/dL (8.4-10.6); Glucose* 115 mg/dL (60-115)
[2024-05-11 19:24] LABS: Ethanol* < 0.01 % (0.01-0.03)
[2024-05-11 19:26] LABS: Potassium* 2.8 mmol/L (3.6-5.1); Sodium* 122 mmol/L (135-149)
[2024-05-11 19:27] LABS: Alkaline Phosphatase* 118 U/L (40-150); Anion Gap 16 mEq/L (7-15); Aspartate Amino Transferase* 42 U/L (12-35); Bilirubin Total* 2.2 mg/dL (0.1-1.5); Carbon Dioxide* 32 mmol/L (20-32); Creatinine* 1.1 mg/dL (0.5-1.5); Est. Creatinine Clearance* 109.74; Estimated Glomerular Filt Rate 94 ml/min; Total Protein* 8.5 g/dL (6.0-8.3)
[2024-05-11 19:55] LABS: Magnesium* 2.3 mg/dL (1.5-2.6)
[2024-05-11] MEDS: 0.9 % SODIUM CHLORIDE 500 ML 500 ML IV (20:04)
[2024-05-11] MEDS: POTASSIUM CHLORIDE 10 MEQ/100 ML PIGGYBACK 100 MEQ IVPB ×3 (20:05→23:48)
[2024-05-11 20:21] LABS: TSH With Reflex to FT4* 0.482 uIU/mL (0.270-4.200)
[2024-05-11] MEDS: LORazepam 2 MG/ML inj 1 MG IVP (20:22)
[2024-05-11] MEDS: METOCLOPRAMIDE HCL 5 MG/ML INJ 10 MG IVP (20:22)
--- NOTE | 2024-05-11 21:10 | P.IMHP_ITS ---
Hospitalist- H&P: HPI History of Present Illness Date Seen: 05/11/24 Chief complaint: Vomiting, tremors Narrative: ADMISSION HISTORY AND PHYSICAL - HOSPITALIST Chief Complaint: tremors; alcohol withdrawal; anxiety; vomiting HPI: 28 y/o with a long mental health history and chronic polysubstance abuse presents to the ED with above complaints. He has been seen in our ED 10x in the last year; admitted last in Jul 2022 by our team. He smokes THC daily and drinks vodka most days. He works casually and lives with his mother and stepfather. He stays in his room all day; works some at night or watches TV at night. He is so anxious with PTSD, agoraphobia like behavior - he drinks and smokes to calm himself. 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 He has had progressive tremors and agitation in the last 48 hours. Seen in our ED yesterday and given IM ativan, toradol, Zofran, benadryl. He had normal vitals yesterday and requested discharge home; no labs. Today he states he is worse and he can't sit still and feels his tongue feels weird, he feels f lushed, he continues to vomit and wretch; he is constantly drinking water. He is not aggressive; he is with his mother whom he lives with. ER COURSE: labs; Given benadryl, toradol, zofran, versed, ativan, reglan. He was given potassium IV and a fluid bolus. He is hypertensive; tachycardic and has abnormal electrolytes; ED asked us to admit/manage. CODE STATUS: FULL CODE EMERGENCY CONTACT PLAN: Veronica Edmonds Rel To Pat Mother Cell I've updated the PFSH, medications and allergies in the Expanse tabs. INVESTIGATIONS: LABS/MICRO/ECG/IMAGING Afebrile Hypertensive to 197/125 Pulse 117 Resp is 20 Pulse ox 93% on room air Weight, reported, 109 kilos, BMI 32.5 Sodium 122 Potassium 2.8 Magnesium is normal BUN mildly elevated at 23, creatinine up to 1.1 from 0.7 Bilirubin is up to 2.2 AST 42 Albumin is elevated at 5.4 Lipase normal TSH normal No rads, micro. REVIEW OF SYSTEMS: 12-point ROS completed with patient and negative unless otherwise stated in HPI or below. PHYSICAL EXAM: CONSTITUTIONAL: flushed, uncomfortable, writhing, agitated. VITAL SIGNS: see record. HEENT: Normocephalic, atraumatic. PERRL, EOMI, conjunctivae pink, no scleral icterus. Ears and nose externally normal. Pharynx normal. NECK: No JVD. No carotid bruit, no thyromegaly, no adenopathy. CHEST: Clear to auscultation bilaterally HEART: S1 and S2 normal. No harsh murmurs. Edema minimal MUSCULOSKELETAL: No gross joint deformity or swelling. NEURO: Cranial nerves intact. Grossly intact. No asymmetric findings. SKIN: No rashes, petechiae, concerning changes PSYCHIATRIC: agitated; mild delirium, pressured ADMIT TO MEDSURG: CCU DVT: Lovenox GI: PO intake, one dose of IV PPI Time spent: Today I spent 75 minutes seeing the patient, discussing the patient with ER staff, reviewing Expanse and EPIC notes/diagnostics, discussing the care plan with our care time that includes social work, PT/OT, pharmacy, RT, residential and documenting my impressions and plan in the medical record. [facility] Medical History (Updated 05/11/24 @ 22:57 by Liyah Alfaro MD) Cannabinosis ?J66.2 - Cannabinosis (ICD-10) Severe anxiety with panic ?F41.0 - Panic disorder [episodic paroxysmal anxiety] (ICD-10) Normal colonoscopy Normal esophagogastroduodenoscopy (EGD) ?Z01.89 - Encounter for other specified special examinations (ICD-10) Cyclical vomiting ?R11.15 - Cyclical vomiting syndrome unrelated to migraine (ICD-10) Anxiety ?F41.9 - Anxiety disorder, unspecified (ICD-10) Substance abuse ?F19.10 - Other psychoactive substance abuse, uncomplicated (ICD-10) Surgical History History of myringotomy ?Z98.890 - Other specified postprocedural states (ICD-10) Family History (Updated 05/11/24 @ 22:34 by iLyah Alfaro MD) Father Alcohol dependence Drug dependence Suicidal behavior with attempted self-injury Social History (Updated 05/11/24 @ 22:35 by Liyah Alfaro MD) Narrative: Patient lives with his mother and stepfather; 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 His mother is healthcare power of contracts attorney and code status is full. History of alcohol and cannabis abuse. Current cigarette smoking. Highest level of school completed/degree received: Associate degree: occupational, technical, vocational program Smoking Status: Current every day smoker What tobacco products do you use: cigarettes Smoking packs per day: 0.5 Smoking cigarettes per day: 10.0 Years smoked: 10 Smoking pack-years: 5.00 Smoking quit date/years: >15 years ago Do you use any of these nicotine containing products: E-Cigarettes and Vaping Products Second hand tobacco smoke exposure: No How often do you have a drink containing alcohol: 4 or more times a week How many standard drinks containing alcohol do you have on a typical day: 5 or 6 How often do you have six or more drinks on one occasion: Daily or almost daily AUDIT-C Alcohol total score: 10 Non-prescribed substance use: marijuana (any form) Caffeine: Yes service: No Meds Home Medications and Allergies Home Medications ?Medication ?Instructions ?Recorded ?Confirmed ?Type clonidine 0.3 mg/24 hr weekly 1 patch topical MO 02/13/22 05/11/24 History transdermal patch desvenlafaxine succinate 50 mg 50 mg PO DAILY 02/13/22 05/11/24 History tablet,extended release 24 hr hydroxyzine HCl 25 mg tablet 25 - 50 mg PO Q6H PRN 02/13/22 05/11/24 History lisinopril 10 mg tablet 10 mg PO DAILY 02/13/22 05/11/24 History lorazepam 0.5 mg tablet 0.5 mg PO DAILY PRN 02/13/22 05/11/24 History ondansetron 4 mg disintegrating 4 mg PO Q8H PRN 02/13/22 05/11/24 History tablet prochlorperazine 25 mg rectal 25 mg DC Q12H PRN 02/13/22 05/11/24 History suppository desvenlafaxine succinate 25 mg 25 mg PO DAILY 08/14/22 05/11/24 History tablet,extended release 24 hr melatonin 10 mg capsule 10 mg PO HS 08/14/22 05/11/24 History trazodone 50 mg tablet 25 mg PO HS PRN 08/14/22 05/11/24 History Allergies Allergy/AdvReac Type Severity Reaction Status Date / Time haloperidol [From Haldol] Allergy Verified 05/11/24 17:58 olanzapine [From Zyprexa] AdvReac Intermediate Cramping Verified 05/11/24 17:58 of the Muscles Exam Const: Vital Signs, click to edit/add: Vital Signs - 24 hr 05/11/24 17:39 Temperature 96.6 F L Pulse Rate [Right Pulse Oximeter] 117 H Respiratory Rate 20 Blood Pressure [Ri ght Upper Arm] 197/125 H Pulse Oximetry 93 Oxygen Delivery Me thod Room Air Hospitalist - H&P: Result Labs Labs: Short CBC 05/11/24 Range/Units 18:47 WBC 14.21 H (4.50-11.00) K/uL Hgb 15.4 (13.5-17.5) gm/dL Hct 43.9 (37.0-53.0) % Plt Count 397 (140-440) K/uL BMP 05/11/24 18:47 Sodium 122 L* Potassium 2.8 L* Chloride 74 L Carbon Dioxide 32 BUN 23 Creatinine 1.1 Glucose 115 Calcium 10.2 Liver Function 05/11/24 Range/Units 18:47 Total Bilirubin 2.2 H (0.1-1.5) mg/dL AST 42 H (12-35) U/L ALT 29 (4-50) U/L Alkaline Phosphatase 118 (40-150) U/L Albumin 5.4 H (3.3-5.0) g/dL Assessment and Plan Assessment and plan (1) Acute hyperactive alcohol withdrawal delirium: Problem comment: drinks vodka daily secondary to his depression and anxiety last drink 05/09 phenobarbital 260 push; 130 to follow prn Ativan prn and Ativan per CIWA scale Status: Acute (2) Severe anxiety with panic: Problem comment: has not had continuous care but multiple contacts with mental health providers, counselors previous psych and addiction rehab may need transfer (after stability) to inpatient [facility] notification components of PTSD, depression, poor coping, trauma Status: Acute (3) Hyponatremia: Problem comment: 122 fluid restriction, normal saline bolus evidence of polydipsia, psychogenic turned off faucet in room treat his anxiety Status: Acute (4) Acute hypokalemia: Problem comment: 2.8 likely from vomiting given 1 bump of 10 meq in the ED - will continue to replace by IV and monitor Status: Acute (5) Cyclical vomiting: Problem comment: THC induced cyclic vomiting Perseverates on thirst and nausea Status: Acute (6) Polysubstance abuse: Problem comment: THC; alcohol, benzos Status: Acute (7) Cannabinosis: Problem comment: chronic; daily chronic anxiety, vomiting Status: Acute (8) Pervasive developmental disorder: Problem comment: -autism spectrum suspected Status: Acute
--- NOTE | 2024-05-11 21:15 | ED.NURSE ---
Report to Raymond Morrow RN. Pt to go to CCU - 3.
[2024-05-11 21:35] LABS: Lab Add On Test New Spec Needed
[2024-05-11] MEDS: PHENobarbitaL 65 MG/ML inj 260 MG IVP (21:41)
[2024-05-11 22:07] LABS: C Reactive Protein* 1.1 mg/dL (0.5-1.0)
[2024-05-11 22:11] LABS: Acetaminophen* < 10.0 ug/mL (10.0-30.0)
[2024-05-11 22:38] LABS: HCO3 VBG 39 mmol/L (21-28); Lactate* 1.5 mmol/L (0.5-1.9); PCO2 VBG 46 mmHG (40-50); PO2 VBG < 30.1 mmHG (25-47); pH VBG 7.534 (7.32-7.43)
[2024-05-11] MEDS: PANTOPRAZOLE SODIUM 40 MG INJ IVP (22:40)
[2024-05-11] MEDS: LORazepam 2 MG/ML inj IVP ×2 (22:40→23:46)
[2024-05-11] MEDS: 0.9 % SODIUM CHLORIDE 1000 ml 1,000 ML 125 ML IV (22:40)
[2024-05-11] MEDS: ACETAMINOPHEN 650 MG TABLET ER 1300 MG PO (22:45)
[2024-05-11 22:53] LABS: Chloride* 76 mmol/L (96-114)
[2024-05-11 22:56] LABS: Anion Gap 9 mEq/L (7-15); Blood Urea Nitrogen* 27 mg/dL (5-24); Calcium* 9.3 mg/dL (8.4-10.6); Carbon Dioxide* 37 mmol/L (20-32); Creatinine* 1.2 mg/dL (0.5-1.5); Est. Creatinine Clearance* 100.59; Estimated Glomerular Filt Rate 84 ml/min; Glucose* 100 mg/dL (60-115)
[2024-05-11 23:01] LABS: Potassium* 2.8 mmol/L (3.6-5.1); Sodium* 122 mmol/L (135-149)
[2024-05-11 23:01] LABS: Amphetamine Screen Urine Negative (Negative); Barbiturate Screen Urine Negative (Negative); Benzodiazepines Screen Urine POSITIVE (Negative); Cannabinoid Screen Urine POSITIVE (Negative); Cocaine Screen Urine Negative (Negative); Methadone Screen Urine Negative (Negative); Methamphetamines Screen Urine Negative (Negative); Opiate Screen Urine Negative (Negative); Oxycodone Screen Urine Negative (Negative); Phencyclidine Screen Urine Negative (Negative); Tricyclic Antidepressant Urine Negative (Negative)
--- NOTE | 2024-05-11 23:28 | PC.NURSE ---
Pt arrived on unit at approx. 2145. Pt appeared anxious and uncomfortable. Pt's body was flushed red and displaying body tremors. Pt had x3 emesis. Seeking fluids to drink but on a fluid restriction. Hypertensive BP on arrival. Pt restless due to withdrawal from alcohol symptoms. Seizure precautions in place. Able to amb. independently in room.
[2024-05-12] VITALS (10 sets, daily range): BP systolic 112–137; BP diastolic 55–90; PULSE 68–87; RESP 16–18; TEMP 36–37.1; O2SAT 93–100; BMI 30.9
--- NOTE | 2024-05-12 01:06 | PC.NURSE ---
Dry Cleaning Checker attempted to start a second IV with 2300 assessment this evening. Pt noted to have small thin veins and likely dehydrated due to vomiting reported before and since admission. Dry Cleaning Checker attempted to start IV in L hand though was unsuccessful. Pt became irritable and stated, No more. He was previously educated regarding importance of having second IV in place and given PRN Ativan to treat anxiety noted with IV insertion attempt. Pt also refusing to keep blood pressure cuff on for Q2H vital signs throughout the night and is refusing to keep oxygen mask on though O2 sat noted to be 98% on RA at this time. oyster opener and supervisor pumping updated regarding patient's refusals.
[2024-05-12] MEDS: POTASSIUM CHLORIDE 10 MEQ/100 ML PIGGYBACK 100 MEQ IVPB ×6 (01:19→22:42)
[2024-05-12] MEDS: PHENobarbitaL 130 MG in 0.9 % SODIUM CHLORIDE 100 ml 100 ML 204 MG IVPB (02:12)
[2024-05-12] MEDS: LORazepam 2 MG/ML inj IVP ×2 (03:11→06:08)
[2024-05-12] MEDS: POTASSIUM CHLORIDE 10 MEQ CAPSULE ER 40 MEQ PO (04:10)
[2024-05-12] MEDS: 0.9 % SODIUM CHLORIDE 1000 ml 1,000 ML 125 ML IV (04:44)
--- NOTE | 2024-05-12 04:59 | PC.NURSE ---
Planned [facility] Expanse Downtime today (05/12/24) from [id number].
[2024-05-12 05:11] LABS: Sodium* 122 mmol/L (135-149)
[2024-05-12 05:12] LABS: Anion Gap 8 mEq/L (7-15); Blood Urea Nitrogen* 29 mg/dL (5-24); Calcium* 8.9 mg/dL (8.4-10.6); Carbon Dioxide* 36 mmol/L (20-32); Chloride* 78 mmol/L (96-114); Creatinine* 1.3 mg/dL (0.5-1.5); Est. Creatinine Clearance* 92.85; Estimated Glomerular Filt Rate 77 ml/min; Glucose* 101 mg/dL (60-115); Potassium* 2.9 mmol/L (3.6-5.1)
--- NOTE | 2024-05-12 06:30 | PC.NURSE ---
End of shift note [id number]: Pt alert when spoken to and able to identify correct person, place and time. Mild nausea noted at times throughout the shift with PRN Ativan administered. No vomiting or retching noted this shift. Pt also requested dose of PRN Phenobarbital to help with anxiety. Pt refusing oxygen at start of shift though has maintained O2 sats greater than 90% on RA. Na+ 122 and K+ of 2.9 overnight with IV and po K+ given per orders. Seizure pads in place. Clonidine patch in place to chest. Pt refused to have second IV placed despite attempt and education provided. He has been denying pain when asked and reports last BM of 05/09/24. IV to R wrist patent with NS running per order. Pt on tele- NSR with prolonged QT noted with 2299 tele reading- press writer did update Dr. Alfaro. QT noted to be WNL with last tele reading. VSS. Pt noncompliant with following fluid restriction throughout the shift despite education and repeated reminders of why fluid restriction has sunni ordered. He refused AM Tylenol and to have last blood pressure assessed, taking B/P cuff off and stating, ?No, I want you to leave me alone so I can go to sleep?. CIWA score of 13 noted at start of shift though scores have since been 4-6 after being managed with PRN Lorazepam per protocol. Pt continent of bladder using urinal though declined to use this morning when offered.
[2024-05-12 06:35] LABS: HCO3 VBG 37 mmol/L (21-28); Lactate* 0.9 mmol/L (0.5-1.9); PCO2 VBG 46 mmHG (40-50); pH VBG 7.509 (7.32-7.43)
[2024-05-12 06:44] LABS: Hematocrit 39.7 % (37.0-53.0); Hemoglobin* 13.6 gm/dL (13.5-17.5); Mean Corpuscular HGB Conc 34 gm/dL (32-36); Mean Corpuscular Hemoglobin 29 pg (26-34); Mean Corpuscular Volume 84 fL (80-100); Platelet Count* 306 K/uL (140-440); Red Blood Count 4.74 m/uL (4.30-5.90); White Blood Count* 11.76 K/uL (4.50-11.00)
[2024-05-12 06:50] LABS: Slide Review Reflex No
[2024-05-12 07:01] LABS: Chloride* 79 mmol/L (96-114)
[2024-05-12 07:02] LABS: Albumin* 4.4 g/dL (3.3-5.0); Potassium* 3.1 mmol/L (3.6-5.1)
[2024-05-12 07:04] LABS: Creatinine* 1.1 mg/dL (0.5-1.5); Est. Creatinine Clearance* 109.74; Estimated Glomerular Filt Rate 94 ml/min; Sodium* 121 mmol/L (135-149)
[2024-05-12 07:05] LABS: Alanine Aminotransferase* 23 U/L (4-50); Alkaline Phosphatase* 77 U/L (40-150); Anion Gap 8 mEq/L (7-15); Aspartate Amino Transferase* 38 U/L (12-35); Bilirubin Total* 2.1 mg/dL (0.1-1.5); Blood Urea Nitrogen* 28 mg/dL (5-24); Calcium* 8.8 mg/dL (8.4-10.6); Carbon Dioxide* 34 mmol/L (20-32); Glucose* 99 mg/dL (60-115); Total Protein* 6.8 g/dL (6.0-8.3)
[2024-05-12 07:06] LABS: Magnesium* 2.5 mg/dL (1.5-2.6)
[2024-05-12 07:08] LABS: C Reactive Protein* 1.4 mg/dL (0.5-1.0)
[2024-05-12] MEDS: FOLIC ACID 1 MG TABLET PO (08:35)
[2024-05-12] MEDS: MULTIVITAMIN/MINERALS 1 TABLET 1 TAB PO (08:35)
[2024-05-12] MEDS: SCOPOLAMINE 1 MG/3 DAY PATCH 1 PATCH TRANSDERMA (09:48)
[2024-05-12] MEDS: SODIUM CHLORIDE 1 GM TABLET PO ×3 (09:52→17:55)
--- NOTE | 2024-05-12 10:25 | P.IMPN_ITS ---
Progress Note: A&P Assessment and plan (1) Acute hyperactive alcohol withdrawal delirium: Problem details: drinks vodka daily 1-1.5 L secondary to his depression and anxiety, PTSD last drink 05/09 ETOH < 0.01 on admission, bilirubin 2.2, improved to 2.1, AST 42, improved to 38, VBG pH 7.534, improved to 7.509 phenobarbital 260 push; 130 to follow prn Ativan prn and Ativan per CIWA scale 05/12: CIWA score overnight 3-6, this morning 3, ok for med surg status currently Continue thiamine, folic acid, MVI Status: Acute (2) Severe anxiety with panic: Problem details: has not had continuous care but multiple contacts with mental health providers, counselors previous psych and addiction rehab may need transfer (after medically stabilized) to inpatient psych if meets criteria - according to UR, patient is restricted to specific hospitals so this would need to be addressed, [facility] notification components of PTSD, depression, poor coping, trauma Continue home dose desvenlafaxine, clonidine patch, gabapentin; holding home p.r.n. doses of lorazepam, hydroxyzine, prochlorperazine, trazodone Would benefit from an outpatient team consisting of Psychiatry, Psychology/therapy, Case Management, Rehab Status: Acute (3) Hyponatremia: Problem details: 122 on admission 1500ml fluid restriction, normal saline bolus completed evidence of polydipsia, psychogenic turned off faucet in room. Has been reported by staff to drink toilet water in the past - continue to monitor for behaviors treat his anxiety 05/12: Sodium 121 this morning. Sodium chloride 1 g p.o. t.i.d.. Refuses protein supplements as unable to stomach them Status: Acute (4) Acute hypokalemia: Problem details: 2.8 on admission likely from vomiting given 1 bump of 10 meq in the ED - will continue to replace by IV and monitor - improved to 3.1, continue IV bumps Status: Acute (5) Cyclical vomiting: Problem details: THC induced cyclic vomiting Perseverates on thirst and nausea Scopolamine patch, scheduled Reglan for now PPI Further outpatient workup with PCP, Gastroenterology Status: Acute (6) Polysubstance abuse: Problem details: THC; alcohol, benzos H/o previous rehab attempts vice president client services consulted Status: Acute (7) Cannabinosis: Problem details: chronic; daily chronic anxiety, vomiting Status: Acute (8) Pervasive developmental disorder: Problem details: -autism spectrum suspected. Further workup, management recommendations following discharge Status: Acute Plan Electrolyte derangement management including sodium and potassium. CIWA monitor ing. Cyclical nausea vomiting management. Following medical stabilization, could assess for appropriateness of inpatient psychiatric evaluation if meets criteria. Will need ongoing outpatient management including a team from Psychiatry/Psychology, Case Management, Rehab. Outpatient follow-up for cyclical vomiting workup with PCP, considering gastroenterology consult. Time Spent With Patient Total time spent: Total time spent caring for the patient today was 60 minutes. This includes time spent for the visit reviewing the chart, time spent during the visit, time spent after the visit and documentation and planning in coordination of care. Subjective Date Seen: 05/12/24 Interval history: Patient is seen lying in bed this morning, lights are off, covers pulled over his head. Has headache. Has some mild dizziness. Denies chest pain or shortness of breath. Nausea this morning is better than it was yesterday. Continues to be tremulous. CIWA score this morning 3. Sodium 121, potassium 3.1, magnesium 2.5. Exam Narrative: Exam Narrative: PHYSICAL EXAM General: Quiet, poor eye contact, NAD HEENT: Normocephalic, atraumatic, sclera white, EOMI, oral mucosa moist Cardiovascular: RRR, S1S2. No pitting edema Pulmonary: CTA bilaterally without rhonchi, rales, expiratory wheezes. No dyspnea Neurological: Alert, poor eye contact, limited answers, cranial nerves intact, no focal findings Extremities: No gross joint deformity or swelling. AROMI. Neurovascularly intact. Very minimal tremors of both hands Skin: Warm, dry. Const: Vital Signs, click to edit/add: Vital Signs - 24 hr 05/11/24 17:39 05/11/24 21:00 05/11/24 21:29 Temperature 96.6 F L 98.0 F 97.1 F L Pulse Rate Pulse Rate [Pulse Oximeter] 102 H Pulse Rate [Right Pulse Oximeter] 117 H 90 Respiratory Rate 20 22 20 Blood Pressure [Le ft Arm] Blood Pressure [Ri ght Arm] 161/122 H Blood Pressure [Ri ght Upper Arm] 197/125 H 140/80 H Pulse Oximetry 93 97 95 Oxygen Delivery Me thod Room Air Room Air Room Air Oxygen Flow Rate 05/11/24 21:29 05/11/24 21:29 05/11/24 21:45 Temperature 97.1 F L Pulse Rate Pulse Rate [Pulse Oximeter] 102 H Pulse Rate [Right Pulse Oximeter] Respiratory Rate 20 Blood Pressure [Le ft Arm] Blood Pressure [Ri ght Arm] 161/122 H Blood Pressure [Ri ght Upper Arm] Pulse Oximetry 97 97 95 Oxygen Delivery Me thod Nasal Cannula Room Air Oxygen Flow Rate 1.5 05/11/24 21:45 05/11/24 21:45 05/11/24 22:59 Temperature 97.1 F L Pulse Rate 80 Pulse Rate [Pulse Oximeter] 102 H Pulse Rate [Right Pulse Oximeter] Respiratory Rate 20 Blood Pressure [Le ft Arm] Blood Pressure [Ri ght Arm] 161/122 H Blood Pressure [Ri ght Upper Arm] Pulse Oximetry 95 95 Oxygen Delivery Me thod Room Air Room Air Oxygen Flow Rate 05/11/24 22:59 05/11/24 23:00 05/11/24 23:00 Temperature 96.1 F L 96.1 F L Pulse Rate 80 Pulse Rate [Pulse Oximeter] 77 77 Pulse Rate [Right Pulse Oximeter] Respiratory Rate 18 18 Blood Pressure [Le ft Arm] Blood Pressure [Ri ght Arm] 127/75 127/75 Blood Pressure [Ri ght Upper Arm] Pulse Oximetry 99 99 Oxygen Delivery Me thod Aerosol Mask Aerosol Mask Oxygen Flow Rate 1.5 1.5 05/11/24 23:00 05/11/24 23:15 05/11/24 23:40 Temperature Pulse Rate Pulse Rate [Pulse Oximeter] 77 Pulse Rate [Right Pulse Oximeter] Respiratory Rate 18 18 Blood Pressure [Le ft Arm] Blood Pressure [Ri ght Arm] Blood Pressure [Ri ght Upper Arm] Pulse Oximetry 99 99 Oxygen Delivery Me thod Aerosol Mask Oxygen Flow Rate 1.5 05/12/24 01:10 05/12/24 02:49 05/12/24 03:08 Temperature 96.9 F L 96.8 F L Pulse Rate 77 Pulse Rate [Pulse Oximeter] 77 87 Pulse Rate [Right Pulse Oximeter] Respiratory Rate 16 16 Blood Pressure [Le ft Arm] 121/55 L Blood Pressure [Ri ght Arm] 117/69 Blood Pressure [Ri ght Upper Arm] Pulse Oximetry 95 95 Oxygen Delivery Me thod Room Air Room Air Oxygen Flow Rate 0 05/12/24 05:20 05/12/24 07:08 05/12/24 07:53 Temperature 98.3 F Pulse Rate 68 Pulse Rate [Pulse Oximeter] 80 Pulse Rate [Right Pulse Oximeter] Respiratory Rate 16 Blood Pressure [Le ft Arm] 118/66 Blood Pressure [Ri ght Arm] Blood Pressure [Ri ght Upper Arm] Pulse Oximetry 100 100 Oxygen Delivery Me thod Room Air Oxygen Flow Rate 05/12/24 07:53 05/12/24 07:53 Temperature 98.6 F Pulse Rate Pulse Rate [Pulse Oximeter] 75 Pulse Rate [Right Pulse Oximeter] Respiratory Rate 18 18 Blood Pressure [Le ft Arm] 112/64 Blood Pressure [Ri ght Arm] Blood Pressure [Ri ght Upper Arm] Pulse Oximetry 100 100 Oxygen Delivery Me thod Room Air Room Air Oxygen Flow Rate Labs Labs: Laboratory Results - last 24 hr 05/11/24 05/11/24 05/11/24 18:47 22:32 22:45 WBC 14.21 H RBC 5.35 Hgb 15.4 Hct 43.9 MCV 82 MCH 29 MCHC 35 RDW Coeff of Belia 13.5 Plt Count 397 Neut % (Auto) 80.7 H Lymph % (Auto) 10.0 L Love % (Auto) 9.1 Eos % (Auto) 0.0 Baso % (Auto) 0.0 Neut # (Auto) 11.50 H Lymph # (Auto) 1.40 Love # (Auto) 1.30 H Eos # (Auto) 0.00 Baso # (Auto) 0.00 Abs Immat Gran (auto) 0.00 Imm/Tot Granulo (auto) 0.2 VBG pH 7.534 H VBG pCO2 46 VBG pO2 < 30.1 VBG HCO3 39 H Sodium 122 L* 122 L* Potassium 2.8 L* 2.8 L* Chloride 74 L 76 L Carbon Dioxide 32 37 H Anion Gap 16 H 9 BUN 23 27 H Creatinine 1.1 1.2 Estimated Creat Clear 109.74 100.59 Estimated GFR 94 84 Glucose 115 100 Lactate 1.5 Calcium 10.2 9.3 Magnesium 2.3 Total Bilirubin 2.2 H AST 42 H ALT 29 Alkaline Phosphatase 118 C-Reactive Protein 1.1 H Total Protein 8.5 H Albumin 5.4 H Lipase 68 TSH 0.482 Urine Opiates Screen Negative Ur Oxycodone Screen Negative Urine Methadone Screen Negative Acetaminophen < 10.0 L Ur Barbiturates Screen Negative U Tricyclic Antidepress Negative Ur Phencyclidine Scrn Negative Ur Amphetamines Screen Negative U Methamphetamines Scrn Negative U Benzodiazepines Scrn POSITIVE A Urine Cocaine Screen Negative U Marijuana (THC) Screen POSITIVE A Ur Drug Screen Comment See Note Ethyl Alcohol < 0.01 L Lab Acknowledgement New Spec Needed 05/12/24 05/12/24 03:00 06:00 WBC 11.76 H RBC 4.74 Hgb 13.6 Hct 39.7 MCV 84 MCH 29 MCHC 34 RDW Coeff of Belia Plt Count 306 Neut % (Auto) Lymph % (Auto) Love % (Auto) Eos % (Auto) Baso % (Auto) Neut # (Auto) Lymph # (Auto) Love # (Auto) Eos # (Auto) Baso # (Auto) Abs Immat Gran (auto) Imm/Tot Granulo (auto) VBG pH 7.509 H VBG pCO2 46 VBG pO2 43.0 VBG HCO3 37 H Sodium 122 L* 121 L* Potassium 2.9 L* 3.1 L Chloride 78 L 79 L Carbon Dioxide 36 H 34 H Anion Gap 8 8 BUN 29 H 28 H Creatinine 1.3 1.1 Estimated Creat Clear 92.85 109.74 Estimated GFR 77 94 Glucose 101 99 Lactate 0.9 Calcium 8.9 8.8 Magnesium 2.5 Total Bilirubin 2.1 H AST 38 H ALT 23 Alkaline Phosphatase 77 C-Reactive Protein 1.4 H Total Protein 6.8 Albumin 4.4 Lipase TSH Urine Opiates Screen Ur Oxycodone Screen Urine Methadone Screen Acetaminophen Ur Barbiturates Screen U Tricyclic Antidepress Ur Phencyclidine Scrn Ur Amphetamines Screen U Methamphetamines Scrn U Benzodiazepines Scrn Urine Cocaine Screen U Marijuana (THC) Screen Ur Drug Screen Comment Ethyl Alcohol Lab Acknowledgement
[2024-05-12 12:26] LABS: Potassium* 3.1 mmol/L (3.6-5.1)
[2024-05-12 12:39] LABS: Sodium* 121 mmol/L (135-149)
[2024-05-12] MEDS: LORazepam 0.5 MG TABLET PO ×3 (12:54→22:42)
[2024-05-12] MEDS: PANTOPRAZOLE SODIUM 40 MG INJ IVP (12:55)
[2024-05-12] MEDS: SODIUM CHLORIDE 0.9 % (FLUSH) 10 ML SYRINGE 5 ML IVF ×2 (12:56→21:37)
[2024-05-12] MEDS: METOCLOPRAMIDE HCL 5 MG/ML INJ 10 MG IVP ×3 (12:56→22:42)
[2024-05-12 16:57] LABS: Sodium* 121 mmol/L (135-149)
[2024-05-12] MEDS: 3 % SODIUM CHLORIDE 500 ml 50 ML 33.33 ML IV (17:58)
[2024-05-12] MEDS: GABAPENTIN 600 MG TABLET PO (21:37)
[2024-05-12 22:53] LABS: Chloride* 86 mmol/L (96-114); Sodium* 125 mmol/L (135-149)
[2024-05-12] MEDS: NICOTINE 14 mg PATCH 1 PATCH TOPICAL (22:55)
[2024-05-12 22:56] LABS: Creatinine* 1.1 mg/dL (0.5-1.5); Est. Creatinine Clearance* 109.74; Estimated Glomerular Filt Rate 94 ml/min
[2024-05-12 22:57] LABS: Anion Gap 7 mEq/L (7-15); Blood Urea Nitrogen* 17 mg/dL (5-24); Calcium* 8.7 mg/dL (8.4-10.6); Carbon Dioxide* 32 mmol/L (20-32); Glucose* 91 mg/dL (60-115)
--- NOTE | 2024-05-12 23:06 | PC.NURSE ---
End of shift [id number]: Pt has been A&O, afebrile and VSS this shift. He?s been passive with staff & rather non-compliant with 1500 mL fluid restriction. He continues to ask for more Sprite, water and has taken multiple showers today to drink from the shower faucet. Despite continued re-education, he continues to do things his way. He asked for PRN PO Ativan twice for anxiety, last given @ 2240. 1700 Na: 121, K+: 3.0 > 2200 Na: 125, K+ 3.0. Salt tabs TID ordered & he received 50 mL 3% sodium IV. Potassium bags x4 ordered. CIWA?s have been low 3 > 2 scores for mild nausea & light sensitivity. No emesis or BM this shift. Independent in his room. Nicotine patch ordered and applied to right arm. ?
[2024-05-13] VITALS (12 sets, daily range): BP systolic 117–142; BP diastolic 65–102; PULSE 58–70; RESP 16–18; TEMP 35.8–36.8; O2SAT 95–100
[2024-05-13] MEDS: POTASSIUM CHLORIDE 10 MEQ/100 ML PIGGYBACK 90 MEQ IVPB ×3 (00:05→03:03)
[2024-05-13] MEDS: METOCLOPRAMIDE HCL 5 MG/ML INJ 10 MG IVP ×4 (04:14→21:57)
[2024-05-13] MEDS: POTASSIUM BICARB 25 MEQ EFFERVESCENT TAB PO ×2 (06:03→09:14)
[2024-05-13 06:38] LABS: Hematocrit 42.5 % (37.0-53.0); Hemoglobin* 14.1 gm/dL (13.5-17.5); Mean Corpuscular HGB Conc 33 gm/dL (32-36); Mean Corpuscular Hemoglobin 29 pg (26-34); Mean Corpuscular Volume 86 fL (80-100); Platelet Count* 300 K/uL (140-440); Red Blood Count 4.92 m/uL (4.30-5.90); White Blood Count* 9.09 K/uL (4.50-11.00)
[2024-05-13 06:40] LABS: Slide Review Reflex No
[2024-05-13 06:48] LABS: Chloride* 91 mmol/L (96-114); Sodium* 128 mmol/L (135-149)
[2024-05-13 06:51] LABS: Anion Gap 7 mEq/L (7-15); Carbon Dioxide* 30 mmol/L (20-32); Creatinine* 1.1 mg/dL (0.5-1.5); Est. Creatinine Clearance* 109.74; Estimated Glomerular Filt Rate 94 ml/min
[2024-05-13 06:52] LABS: Blood Urea Nitrogen* 14 mg/dL (5-24); Calcium* 9.4 mg/dL (8.4-10.6); Glucose* 89 mg/dL (60-115)
[2024-05-13 07:14] LABS: Potassium* 3.3 mmol/L (3.6-5.1)
--- NOTE | 2024-05-13 07:33 | PC.NURSE ---
Pt alert and oriented x3. Afebrile. Pt reports feeling nausea, no emesis, managed with scheduled medications. Pt CIWA scored 2. Verbal education given to pt about fluid restriction, pt verbalized understanding and agreed to ice chips to slow water intake. Pt asked for other liquids throughout night, reenforced education on fluid restriction. Pt asked charge master analyst Vanessa and other RNs for extra fluids and was reminded of fluid restriction. Updated on coming RN and MD aware.
[2024-05-13] MEDS: SODIUM CHLORIDE 1 GM TABLET PO ×3 (08:18→17:59)
[2024-05-13] MEDS: FOLIC ACID 1 MG TABLET PO (09:14)
[2024-05-13] MEDS: lisinopriL 10 MG TABLET PO (09:14)
[2024-05-13] MEDS: MULTIVITAMIN/MINERALS 1 TABLET 1 TAB PO (09:14)
[2024-05-13] MEDS: DESVENLAFAXINE SUCCINATE ER 50 MG TAB PO (09:14)
[2024-05-13] MEDS: NALTREXONE HCL 50 MG TABLET PO (09:14)
[2024-05-13] MEDS: SODIUM CHLORIDE 0.9 % (FLUSH) 10 ML SYRINGE 5 ML IVF ×3 (09:15→20:39)
[2024-05-13] MEDS: PANTOPRAZOLE SODIUM 40 MG INJ IVP (09:15)
--- NOTE | 2024-05-13 11:56 | P.DS_ITS ---
DS: Providers Provider Date Seen: 05/13/24 Date of admission: 05/11/24 21:29 Primary care physician: Deepthi Mc PA-C Admitting Clinician: Liyah Alfaro MD Consults: 05/11/24 21:29 Consult to Commuter Train Operator [CONS] Routine Comment: Reason for Consult:: Social Service Consult Substance Abuse Screening Psycho-Social Needs Attending Physician on discharge: ELMER Hayes[facility] Date [facility] Discharge: 05/13/24 DS: Diagnosis Discharge Diagnosis (1) Acute hyperactive alcohol withdrawal delirium: Status: Acute Problem details: drinks vodka daily 1-1.5 L secondary to his depression and anxiety, PTSD last drink 05/09 ETOH < 0.01 on admission, bilirubin 2.2, improved to 2.1, AST 42, improved to 38, VBG pH 7.534, improved to 7.509 phenobarbital 260 push; 130 to follow prn. Thiamine, folic acid, MVI Ativan prn and Ativan per CIWA scale CIWA scores remained below 6, improved prior to discharge Discussed with patient need for ongoing CD support and resources. Consider dual rehab facility. (2) Severe anxiety with panic: Status: Acute Problem details: has not had continuous care but multiple contacts with mental health providers, counselors previous psych and addiction rehab may need transfer (after medically stabilized) to inpatient psych if meets criteria - according to UR, patient is restricted to specific hospitals so this would need to be addressed, [facility] notification components of PTSD, depression, poor coping, trauma Continue home dose desvenlafaxine, clonidine patch, gabapentin; holding home p.r.n. doses of hydroxyzine, prochlorperazine, trazodone Would benefit from an outpatient team consisting of Psychiatry, Psychology/therapy, Case Management, Rehab/CD support resources. Discussed restarting DBT/CBT. (3) Hyponatremia: Status: Acute Problem details: 122 on admission 1500ml fluid restriction, normal saline bolus completed evidence of polydipsia, psychogenic turned off faucet in room. Has been reported by staff to drink toilet water in the past - continue to monitor for behaviors treat his anxiety 05/12: Sodium 121 this morning. Sodium chloride 1 g p.o. t.i.d.. Refuses protein supplements as unable to stomach them 05/13: Sodium 128 Patient requesting to discharge to home. Has been sneaking free water outside of 1500 mL restriction. Long discussion regarding importance of fluid restriction, avoiding free water instead consuming electrolyte or protein substitutes. Patient verbalizes understanding but recognizes his difficulty in compliance. As patient would like to discharge, recommend continuing 1500 mL fluid restriction times 48 hours, sodium tablets t.i.d., potassium supplement. Recheck sodium and potassium levels tomorrow morning and again in the clinic next week. (4) Acute hypokalemia: Status: Acute Problem details: 2.8 on admission likely from vomiting given 1 bump of 10 meq in the ED - will continue to replace by IV and monitor - improved to 3.1, continue IV bumps 05/13: Potassium 3.3. Tolerating potassium effervescent. As above, patient requesting to discharge. Recommend ongoing effervescent supplement times 48 hours. Recheck potassium levels tomorrow and again next week in the clinic. (5) Cyclical vomiting: Status: Acute Problem details: THC induced cyclic vomiting Perseverates on thirst and nausea Scopolamine patch, scheduled Reglan for now PPI Further outpatient workup with PCP, Gastroenterology (6) Polysubstance abuse: Status: Acute Problem details: THC; alcohol, benzos H/o previous rehab attempts Recommending ongoing CD support outpatient. Consider dual rehab facility. 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 Further workup, management recommendations following discharge DS: Summary Hospital Course Hospital Course: [age] year old male past medical history significant for PTSD, anxiety, depression, substance abuse was admitted to the medical floor for further management hyponatremia, hypokalemia in setting of acute cyclical vomiting and recent alcohol consumption. Course of care and details as noted above. Patient became much more coherent and interactive on the morning of 05/13. Continues to perseverate on thirst, free water intake. Nausea has improved some. Tremors have improved. Has consistently requested to discharge to home. Discussions regarding psychogenic polydipsia, cyclical vomiting and electrolyte disturbances. Noncompliance. Will need strong outpatient support team. Is not currently interested in inpatient psychiatric hospitalization. Denies suicidal/homicidal ideation. Recognizes lability of depression and anxiety currently and increase use of substances for management. Patient and his father will consider dual therapy facilities. Will need sodium and potassium rechecked 05/14/24 - return to hospital lab for this. Close outpatient follow up with PCP. Remainder of chronic medical comorbidities were monitored and managed with home medications. Status at Discharge Functional status at discharge: independent ambulation Overall status at discharge: patient is back to baseline Time Spent with Patient Time attestation: Total time spent providing and/or coordinating discharge services: Time spent: Greater than 30 minutes Exam Narrative: Exam Narrative: PHYSICAL EXAM General: Anixous but conversant, NAD Cardiovascular: RRR Pulmonary: No dyspnea Neurological: Alert, answering questions appropriately, engaging Skin: Warm, dry. Const: Vital Signs, click to edit/add: Vital Signs - 24 hr 05/12/24 15:00 05/12/24 15:00 05/12/24 15:00 Temperature 97.8 F Pulse Rate [Pulse Oximeter] 75 75 Respiratory Rate 16 16 Blood Pressure [Le ft Arm] Blood Pressure [Ri ght Arm] 137/86 Pulse Oximetry 93 93 Oxygen Delivery Me thod Room Air Oxygen Flow Rate 05/12/24 15:00 05/12/24 20:06 05/12/24 23:31 Temperature 98.8 F 98.7 F Pulse Rate [Pulse Oximeter] 76 71 Respiratory Rate 16 16 18 Blood Pressure [Le ft Arm] Blood Pressure [Ri ght Arm] 118/71 115/67 Pulse Oximetry 93 96 97 Oxygen Delivery Me thod Room Air Room Air Room Air Oxygen Flow Rate 05/12/24 23:31 05/12/24 23:31 05/13/24 03:46 Temperature 97.6 F Pulse Rate [Pulse Oximeter] 64 Respiratory Rate 18 16 Blood Pressure [Le ft Arm] 133/93 H Blood Pressure [Ri ght Arm] Pulse Oximetry 96 96 95 Oxygen Delivery Me thod Room Air Oxygen Flow Rate 0 05/13/24 07:57 05/13/24 07:59 05/13/24 08:00 Temperature 98.1 F 98.1 F Pulse Rate [Pulse Oximeter] 69 69 Respiratory Rate 18 18 18 Blood Pressure [Le ft Arm] 142/91 H 142/91 H Blood Pressure [Ri ght Arm] Pulse Oximetry 100 100 100 Oxygen Delivery Me thod Room Air Room Air Oxygen Flow Rate 0 0 05/13/24 10:39 05/13/24 10:41 Temperature 97.4 F L 97.4 F L Pulse Rate [Pulse Oximeter] 70 70 Respiratory Rate 16 16 Blood Pressure [Le ft Arm] 119/65 119/65 Blood Pressure [Ri ght Arm] Pulse Oximetry 98 98 Oxygen Delivery Me thod Room Air Room Air Oxygen Flow Rate 0 0 DS: Data Data Completed and Pending Labs on day of discharge: Labs from last 24 hours 05/13/24 05/12/24 05/12/24 05:59 22:15 17:27 WBC 9.09 RBC 4.92 Hgb 14.1 Hct 42.5 MCV 86 MCH 29 MCHC 33 Plt Count 300 Sodium 128 L 125 L Potassium 3.3 L 3.0 L Chloride 91 L 86 L Carbon Dioxide 30 32 Anion Gap 7 7 BUN 14 17 Creatinine 1.1 1.1 Estimated Creat Clear 109.74 109.74 Estimated GFR 94 94 Glucose 89 91 Calcium 9.4 8.7 Lab Acknowledgement Test Added 05/12/24 05/12/24 16:25 12:09 WBC RBC Hgb Hct MCV MCH MCHC Plt Count Sodium 121 L* 121 L* Potassium 3.0 L 3.1 L Chloride Carbon Dioxide Anion Gap BUN Creatinine Estimated Creat Clear Estimated GFR Glucose Calcium Lab Acknowledgement Discharge Plan Discharge Disposition: Home, Self-Care Date of Admission: 05/11/24 21:29 Attending Provider on Discharge: Vanessa Nash Discharge Medications: New sodium chloride 1,000 mg tablet,soluble 1,000 mg PO TID Qty: 10 0RF potassium bicarb-citric acid 25 mEq tablet, effervescent 25 meq PO BID Qty: 4 0RF Continued lorazepam 0.5 mg tablet 0.5 mg PO DAILY PRN prochlorperazine 25 mg suppository 25 mg [place] Q12H PRN lisinopril 10 mg tablet 10 mg PO DAILY hydroxyzine HCl 25 mg tablet 25 - 50 mg PO Q6H PRN ondansetron 4 mg tablet,disintegrating 4 mg PO Q8H PRN Patient Comments: DISSOLVE 1 TABLET ON THE TONGUE EVERY 8 HOURS NEEDED FOR NAUSEA OR VOMITING desvenlafaxine succinate 50 mg tablet extended release 24 hr 50 mg PO DAILY trazodone 50 mg tablet 25 mg PO HS PRN clonidine 0.1 mg/24 hr patch weekly 1 patch topical .weekly melatonin 3 mg tablet 3 mg PO HS PRN dextroamphetamine-amphetamine [Adderall XR] 20 mg capsule,extended release 24hr 20 mg PO DAILY dextroamphetamine-amphetamine [Adderall] 10 mg tablet 5 - 10 mg PO DAILY gabapentin 600 mg tablet 600 mg PO HS naltrexone 50 mg tablet 50 mg PO DAILY Discharge Orders: Discharge Order (Routine); Ordered 05/13/24 Ordered By: Vanessa Nash Patient Education: Potassium Bicarbonate/Citric Acid (By mouth), Sodium Chloride (By mouth), Hyponatremia (DC), Hyponatremia (GEN), Hypokalemia (DC), Hypokalemia (GEN), Cannabis Use Disorder (DC), Polysubstance Use Disorder (GEN) Additional Instructions: You should continue a fluid restriction of 1500ml for the next 2 days. You will need to measure all of your fluids. Avoid free water, instead consuming electrolyte or protein drinks. Take sodium tablets for the next 3 days. Continue potassium supplement for the next 2 days. You should have your sodium and potassium levels rechecked on Friday05/14/2024 - this can be done at the hospital lab. You will need close follow-up with your PCP as well as your therapist. Follow-up with your therapist. It would be beneficial for you to restart DBT and CBT. Consider options for dual therapy facilities. Activity Level: No Restrictions Discharge Diet: 1500 ml Fluid Restriction Follow Up Appointments: Deepthi Mc PA-C [Primary Care Provider] - 05/17/24 2:20 pm ([facility] for follow-up. [facility] for labs, Recheck sodium and potassium on 05/14/2024.) Forms: [employer] Info Instructions Discharge Comments: Labs: Potassium and sodium levels on 05/14/2024. Come to the hospital lab to have this drawn.
[2024-05-13] MEDS: LORazepam 0.5 MG TABLET PO ×3 (12:11→20:36)
[2024-05-13 13:35] LABS: Potassium* 3.8 mmol/L (3.6-5.1)
[2024-05-13 13:36] LABS: Sodium* 124 mmol/L (135-149)
--- NOTE | 2024-05-13 14:05 | PM.EN ---
Chart Event Note Date Seen: 05/13/24 Chart Event Note: Noon Sodium 124; patient elects at this time to remain in hospital for monitoring, likely home tomorrow.
[2024-05-13] MEDS: ONDANSETRON ODT 4 MG TAB PO (14:49)
--- NOTE | 2024-05-13 19:28 | PC.NURSE ---
Pt alert and oriented. Pt had no complaints of pain. Pt had some complaints of nausea during shift; see EMAR for intervention. Pt is up independently. Pt and Pt?s parents?educated by RN and Provider about importance of fluid restriction and Pt?s compliance. Pt continues to request more fluids despite reinforcement education t?s VSS, Pt on CIWA?s Q4H 7am- 3, 11am- 4, and 15-4. Pt had some anxiety and troubles sleeping during shift; see EMAR for intervention.?
[2024-05-13] MEDS: GABAPENTIN 600 MG TABLET PO (20:36)
[2024-05-13] MEDS: ENOXAPARIN 40 MG/0.4 ML INJ SUBCUT (20:38)
[2024-05-13] MEDS: NICOTINE 14 mg PATCH 1 PATCH TOPICAL (23:37)
[2024-05-14] MEDS: LORazepam 0.5 MG TABLET PO ×3 (01:42→10:29)
[2024-05-14 03:55] VITALS: BP 151/85; PULSE 78; RESP 18; O2SAT 100
[2024-05-14] MEDS: METOCLOPRAMIDE HCL 5 MG/ML INJ 10 MG IVP ×2 (03:59→10:29)
[2024-05-14 06:42] LABS: Hematocrit 42.8 % (37.0-53.0); Hemoglobin* 14.3 gm/dL (13.5-17.5); Mean Corpuscular HGB Conc 33 gm/dL (32-36); Mean Corpuscular Hemoglobin 29 pg (26-34); Mean Corpuscular Volume 87 fL (80-100); Platelet Count* 295 K/uL (140-440); Red Blood Count 4.94 m/uL (4.30-5.90); White Blood Count* 7.18 K/uL (4.50-11.00)
[2024-05-14 07:06] LABS: Slide Review Reflex No
[2024-05-14 07:24] LABS: Chloride* 96 mmol/L (96-114); Potassium* 3.7 mmol/L (3.6-5.1); Sodium* 130 mmol/L (135-149)
[2024-05-14 07:26] LABS: Est. Creatinine Clearance* 120.71; Estimated Glomerular Filt Rate 105 ml/min
[2024-05-14 07:27] LABS: Anion Gap 6 mEq/L (7-15); Blood Urea Nitrogen* 13 mg/dL (5-24); Carbon Dioxide* 28 mmol/L (20-32); Glucose* 97 mg/dL (60-115)
[2024-05-14 07:28] LABS: Calcium* 9.4 mg/dL (8.4-10.6)
--- NOTE | 2024-05-14 07:49 | P.DS_ITS ---
DS: Providers Provider Date Seen: 05/14/24 Date of admission: 05/11/24 21:29 Primary care physician: Deepthi Mc PA-C Admitting Clinician: Liyah Alfaro MD Consults: Attending Physician on discharge: Torri Goldstein MD Date of Discharge: 05/14/24 DS: Diagnosis Discharge Diagnosis (1) Acute hyperactive alcohol withdrawal delirium: Status: Acute Problem details: drinks vodka daily 1-1.5 L secondary to his depression and anxiety, PTSD last drink 05/09 ETOH < 0.01 on admission, bilirubin 2.2, improved to 2.1, AST 42, improved to 38, VBG pH 7.534, improved to 7.509 phenobarbital 260 push; 130 to follow prn. Thiamine, folic acid, MVI Ativan prn and Ativan per CIWA scale CIWA scores remained below 6, improved prior to discharge Discussed with patient need for ongoing CD support and resources. Consider dual rehab facility. (2) Severe anxiety with panic: Status: Acute Problem details: has not had continuous care but multiple contacts with mental health providers, counselors previous psych and addiction rehab, [facility] aware of patient components of PTSD, depression, poor coping, trauma Continued home dose desvenlafaxine, clonidine patch, gabapentin during stay; held home prn doses of hydroxyzine, prochlorperazine, trazodone Would benefit from an outpatient team consisting of Psychiatry, Psychology/therapy, Case Management, Rehab/CD support resources. Discussed restarting DBT/CBT. (3) Hyponatremia: Status: Acute Problem details: 122 on admission 1500ml fluid restriction, normal saline bolus completed evidence of polydipsia, psychogenic turned off faucet in room. Has been reported by staff to drink toilet water in the past - continue to monitor for behaviors treat his anxiety 05/12: Sodium 121 this morning. Sodium chloride 1 g p.o. t.i.d.. Refuses protein supplements as unable to stomach them 05/13: Sodium 128; patient considering d/c, then repeat sodium 124 and he felt comfortable staying for one more night and was more accepting of fluid restriction 05/14: sodium 130 and patient felt much better, mildly tremulous but no other concerns. Comfortable discharging home with PCP f/u early next week (4) Acute hypokalemia: Status: Acute Problem details: 2.8 on admission, likely from vomiting, replaced IV during stay 05/13: Potassium 3.3. 05/15: potassium 3.6 (5) Cyclical vomiting: Status: Acute Problem details: likely induced by chronic THC use during stay, managed with scopolamine patch, scheduled Reglan, PPI Further outpatient workup with PCP, Gastroenterology (6) Polysubstance abuse: Status: Acute Problem details: THC; alcohol, benzos H/o previous rehab attempts Recommending ongoing CD support outpatient. Consider dual rehab facility. 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 Course of care and details as noted above. Patient became much more coherent and interactive on 05/13 with mild improvement on thirst perseveration and improvement of sodium to 128. On 05/14, even more alert and interactive; sodium 130. Tremors improved. Will need strong outpatient support team, not currently interested in inpatient psychiatric hospitalization. Denied suicidal/homicidal ideation during stay. Recognizes lability of depression and anxiety currently and increase use of substances for management. Patient and his father will consider dual therapy facilities. Patient comfortable discharging home with close PCP f/u. Status at Discharge Functional status at discharge: independent ambulation Time Spent with Patient Time attestation: Total time spent providing and/or coordinating discharge services: Time spent: Less than 30 minutes Exam Narrative: Exam Narrative: Patient nontoxic, laying in bed. Answering questions appropriately CV: RRR, no concerning M/R/G R: LCTA bilaterally, no wheezing Ext: wwp, no concerning edema Neuro: nonfocal Psych: appropriate Const: Vital Signs, click to edit/add: Vital Signs - 24 hr 05/13/24 07:55 05/13/24 07:57 05/13/24 07:59 Temperature 98.1 F 98.1 F Pulse Rate [Pulse Oximeter] 69 69 Respiratory Rate 18 18 18 Blood Pressure [Le ft Arm] 142/91 H 142/91 H Blood Pressure [Ri ght Arm] Pulse Oximetry 100 100 Oxygen Delivery Me thod Room Air Oxygen Flow Rate 0 05/13/24 08:00 05/13/24 10:39 05/13/24 10:41 Temperature 97.4 F L 97.4 F L Pulse Rate [Pulse Oximeter] 70 70 Respiratory Rate 18 16 16 Blood Pressure [Le ft Arm] 119/65 119/65 Blood Pressure [Ri ght Arm] Pulse Oximetry 100 98 98 Oxygen Delivery Me thod Room Air Room Air Room Air Oxygen Flow Rate 0 0 0 05/13/24 14:45 05/13/24 14:47 05/13/24 14:48 Temperature 96.5 F L 96.5 F L Pulse Rate [Pulse Oximeter] 67 67 Respiratory Rate 16 16 16 Blood Pressure [Le ft Arm] Blood Pressure [Ri ght Arm] 117/76 117/76 Pulse Oximetry 99 99 99 Oxygen Delivery Me thod Room Air Room Air Room Air Oxygen Flow Rate 0 0 05/13/24 20:00 05/13/24 20:00 05/13/24 20:00 Temperature 98.3 F Pulse Rate [Pulse Oximeter] 61 61 Respiratory Rate 18 18 18 Blood Pressure [Le ft Arm] Blood Pressure [Ri ght Arm] 138/102 H Pulse Oximetry 99 99 Oxygen Delivery Me thod Room Air Room Air Oxygen Flow Rate 0 05/13/24 23:40 05/14/24 03:55 Temperature 98.0 F Pulse Rate [Pulse Oximeter] 58 L 78 Respiratory Rate 16 18 Blood Pressure [Le ft Arm] Blood Pressure [Ri ght Arm] 136/72 151/85 H Pulse Oximetry 98 100 Oxygen Delivery Me thod Room Air Room Air Oxygen Flow Rate 0 0 DS: Data Data Completed and Pending Labs on day of discharge: Labs from last 24 hours 05/14/24 05/13/24 06:14 12:06 WBC 7.18 RBC 4.94 Hgb 14.3 Hct 42.8 MCV 87 MCH 29 MCHC 33 Plt Count 295 Sodium 130 L 124 L* Potassium 3.7 3.8 Chloride 96 Carbon Dioxide 28 Anion Gap 6 L BUN 13 Creatinine 1.0 Estimated Creat Clear 120.71 Estimated GFR 105 Glucose 97 Calcium 9.4 Discharge Plan Discharge Disposition: Home, Self-Care Date of Admission: 05/11/24 21:29 Attending Provider on Discharge: Vanessa Nash Primary Care Provider: Deepthi Mc Condition: Improved Anticipated Discharge Date/Time: 05/13/24 11:33 Discharge Medications: New sodium chloride 1,000 mg tablet,soluble 1,000 mg PO TID Qty: 10 0RF potassium bicarb-citric acid 25 mEq tablet, effervescent 25 meq PO BID Qty: 4 0RF Continued lorazepam 0.5 mg tablet 0.5 mg PO DAILY PRN prochlorperazine 25 mg suppository 25 mg [place] Q12H PRN lisinopril 10 mg tablet 10 mg PO DAILY hydroxyzine HCl 25 mg tablet 25 - 50 mg PO Q6H PRN ondansetron 4 mg tablet,disintegrating 4 mg PO Q8H PRN Patient Comments: DISSOLVE 1 TABLET ON THE TONGUE EVERY 8 HOURS NEEDED FOR NAUSEA OR VOMITING desvenlafaxine succinate 50 mg tablet extended release 24 hr 50 mg PO DAILY trazodone 50 mg tablet 25 mg PO HS PRN clonidine 0.1 mg/24 hr patch weekly 1 patch topical .weekly melatonin 3 mg tablet 3 mg PO HS PRN dextroamphetamine-amphetamine [Adderall XR] 20 mg capsule,extended release 24hr 20 mg PO DAILY dextroamphetamine-amphetamine [Adderall] 10 mg tablet 5 - 10 mg PO DAILY gabapentin 600 mg tablet 600 mg PO HS naltrexone 50 mg tablet 50 mg PO DAILY Discharge Orders: Discharge Order (Routine); Ordered 05/14/24 Ordered By: Torri Goldstein Patient Education: Potassium Bicarbonate/Citric Acid (By mouth), Sodium Chloride (By mouth), Hyponatremia (DC), Hyponatremia (GEN), Hypokalemia (DC), Hypokalemia (GEN), Cannabis Use Disorder (DC), Polysubstance Use Disorder (GEN) Additional Instructions: You should continue a fluid restriction of around 1500ml for the next 2 days, continue to measure all of your fluids. Minimize free water, protein drinks are a great option. Take sodium tablets for the next 3 days. Continue potassium supplement for the next 2 days. See Deepthi as scheduled (Friday - she'll recheck your labs then too). Follow-up with your therapist. It would be beneficial for you to restart DBT and CBT. Consider options for dual therapy facilities. Activity Level: No Restrictions Discharge Diet: 1500 ml Fluid Restriction Follow Up Appointments: Deepthi Mc PA-C [Primary Care Provider] - 05/17/24 2:20 pm ([facility] for follow-up. ) Forms: [employer] Instructions
[2024-05-14 08:07] VITALS: BP 156/102; PULSE 72; RESP 16; TEMP 36.3; O2SAT 100
[2024-05-14] MEDS: PANTOPRAZOLE SODIUM 40 MG INJ IVP (08:34)
[2024-05-14] MEDS: NALTREXONE HCL 50 MG TABLET PO (08:34)
[2024-05-14] MEDS: DESVENLAFAXINE SUCCINATE ER 50 MG TAB PO (08:34)
[2024-05-14] MEDS: lisinopriL 10 MG TABLET PO (08:34)
[2024-05-14] MEDS: MULTIVITAMIN/MINERALS 1 TABLET 1 TAB PO (08:34)
[2024-05-14] MEDS: SODIUM CHLORIDE 1 GM TABLET PO (08:34)
[2024-05-14] MEDS: FOLIC ACID 1 MG TABLET PO (08:34)
[2024-05-14] MEDS: SODIUM CHLORIDE 0.9 % (FLUSH) 10 ML SYRINGE 5 ML IVF (08:49)
[2024-05-14 09:21] LABS: Potassium* 3.6 mmol/L (3.6-5.1); Sodium* 129 mmol/L (135-149)
--- NOTE | 2024-05-14 11:34 | PC.NURSE ---
Discharge: Patient pleasant and cooperative. Up independently. Vitals stable and WNL. Increased restlessness managed with PRN ativan. Gave teachings to patient and father on fluid restriction, new medications, increased potassium and sodium in diet. Informed father to keep hospital cup and I&O sheet to keep track of intake. Denied pain and nausea. Patient discharged @ 1121 with father.
== END 2024-05-14 11:21 | disposition home or self-care (01) | DRG 775 ==
LOC: ED 18:53 → MEDSURG 21:19
PROVIDERS: Family Medicine; Physician Assistant; Admitting Provider Family Medicine; Emergency Provider Emergency Medicine; PCP Physician Assistant Medical; Visit Provider Family Medicine
DX: F10.231 Alcohol dependence with withdrawal delirium (principal); F41.0 Panic disorder [episodic paroxysmal anxiety]; F41.9 Anxiety disorder, unspecified; I10 Essential (primary) hypertension; E87.6 Hypokalemia; E87.1 Hypo-osmolality and hyponatremia; F17.290 Nicotine dependence, other tobacco product, uncomplicated; F17.210 Nicotine dependence, cigarettes, uncomplicated; R11.2 Nausea with vomiting, unspecified; F84.0 Autistic disorder; J66.2 Cannabinosis; F19.129 Other psychoactive substance abuse with intoxication, unspecified; F43.10 Post-traumatic stress disorder, unspecified; R63.1 Polydipsia; F32.A Depression, unspecified; R25.1 Tremor, unspecified
CPT/HCPCS: 36415; 80048; 80053; 80143; 80306; 82077; 82803; 83605; 83690; 83735; 84132; 84295; 84443; 85025; 85027; 86140; 93005; 94761; 99284; 99285; A9153; A9270; J1200; J1650; J1885; J2060; J2250; J2405; J2470; J2560; J2765; J3411; J3480; J7030; J7131; S4990

== ENCOUNTER 2024-05-29 04:28 | Outpatient (CLI) | payer BC, SELFPAY | END 2024-05-29 04:29 | disposition home or self-care (01) | LOC: AMB 05-31 14:17 | PROVIDERS: PCP Physician Assistant Medical; Visit Provider Emergency Medicine | DX: K92.0 Hematemesis (principal); R11.2 Nausea with vomiting, unspecified; R55 Syncope and collapse | CPT/HCPCS: A0425; A0427 ==

== ENCOUNTER 2024-06-13 03:50 | Emergency (ER) | payer BC, SELFPAY ==
[2024-06-13 03:58] VITALS: BP 172/98; PULSE 70; RESP 20; TEMP 36.8; O2SAT 100; BMI 31.2
--- NOTE | 2024-06-13 04:01 | ED_ITS ---
HPI - General Adult General Chief complaint: Nausea/Vomiting Stated complaint: Vomiting Time Seen by Provider: 06/13/24 04:00 History of Present Illness HPI narrative: CC: Nausea/ Vomiting pt. with symptoms that started around 2200 last night . cyclic vomiting. denies fevers, diarrhea. 28-year-old man presenting to the emergency department with history of anxiety and hyperemesis syndrome. Frequent visits to this emergency department last here about a month ago with longer course of vomiting and with hyponatremia and hypokalemia and ultimately alcohol withdrawal. Today has been vomiting for 6 hours. As usual is observed to put some water in his mouth spit out most of it, swallow some. Had a six-pack of beer 3 days ago he says. Recently in [place] with GI bleed. Apparently an ulcer (on review of record clarified as [place] tear) and hematochezia and anemia where received 1 unit of blood. He denies any significant rectal bleeding and no blood in vomitus. Reports hemoglobin of 8 most recently however review of record looks to show 9.8. He has already tried rectal Compazine for this vomiting this morning. Is requesting usual IM injections to stop vomiting. Is disinclined to wait for other cares or investigation but willing after some discussion to get hemoglobin checked; this is particularly important to understandably worried mom who accompanies him here today. Mom is clearly troubled by these episodes and Claudio's substance use and other illness. Further stressors in the family include for daughter, Claudio's sister, with a brain tumor which they have been treating over the last 4 years. Related Data Home Medications ?Medication ?Instructions ?Recorded ?Confirmed desvenlafaxine succinate 50 mg 50 mg PO DAILY 02/13/22 06/13/24 tablet,extended release 24 hr hydroxyzine HCl 25 mg tablet 25 - 50 mg PO Q6H PRN 02/13/22 06/13/24 lisinopril 10 mg tablet 10 mg PO DAILY 02/13/22 06/13/24 lorazepam 0.5 mg tablet 0.5 mg PO DAILY PRN 02/13/22 06/13/24 ondansetron 4 mg disintegrating 4 mg PO Q8H PRN 02/13/22 06/13/24 tablet prochlorperazine 25 mg rectal 25 mg [place] Q12H PRN 02/13/22 06/13/24 suppository trazodone 50 mg tablet 25 mg PO HS PRN 08/14/22 06/13/24 clonidine 0.1 mg/24 hr weekly 1 patch topical .weekly 05/12/24 06/13/24 transdermal patch dextroamphetamine-amphetamine 10 5 - 10 mg PO DAILY 05/12/24 06/13/24 mg tablet (Adderall) dextroamphetamine-amphetamine ER 20 mg PO DAILY 05/12/24 06/13/24 20 mg 24hr capsule,extend release (Adderall XR) gabapentin 600 mg tablet 600 mg PO HS 05/12/24 06/13/24 melatonin 3 mg tablet 3 mg PO HS PRN 05/12/24 06/13/24 naltrexone 50 mg tablet 50 mg PO DAILY 05/12/24 06/13/24 Previous Rx's ?Medication ?Instructions ?Recorded potassium bicarbonate-citric acid 25 meq PO BID #4 ea 05/13/24 25 mEq effervescent tablet sodium chloride 1,000 mg soluble 1,000 mg PO TID #10 tabs 05/13/24 tablet Allergies Allergy/AdvReac Type Severity Reaction Status Date / Time haloperidol (From Haldol) Allergy Verified 06/13/24 04:00 olanzapine (From Zyprexa) AdvReac Intermediate Cramping Verified 06/13/24 04:00 of the Muscles Review of Systems Status of ROS: Reports: 6 or more systems reviewed and unremarkable except as noted in History and below [facility] Medical History Cannabinoid hyperemesis syndrome ?R11.2 - Nausea with vomiting, unspecified (ICD-10) ?F12.90 - Cannabis use, unspecified, uncomplicated (ICD-10) Cannabinosis ?J66.2 - Cannabinosis (ICD-10) Severe anxiety with panic ?F41.0 - Panic disorder [episodic paroxysmal anxiety] (ICD-10) Normal colonoscopy Normal esophagogastroduodenoscopy (EGD) ?Z01.89 - Encounter for other specified special examinations (ICD-10) Cyclical vomiting ?R11.15 - Cyclical vomiting syndrome unrelated to migraine (ICD-10) Anxiety ?F41.9 - Anxiety disorder, unspecified (ICD-10) Substance abuse ?F19.10 - Other psychoactive substance abuse, uncomplicated (ICD-10) Surgical History History of myringotomy ?Z98.890 - Other specified postprocedural states (ICD-10) Family History Father Alcohol dependence Drug dependence Suicidal behavior with attempted self-injury Social History Narrative: Patient lives with his mother and stepfather; 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 His mother is healthcare power of home security professional and code status is full. History of alcohol and cannabis abuse. Current cigarette smoking. What is your current living situation?: declined to answer Problems where you live: declined to answer In the past 12 months, utilities in danger of being shut off: declined to answer In the past 12 mos, have been you worried that your food would run out before you had money to buy more?: declined to answer In the past 12 mos, the food you bought just didn't last and you didn't have money to buy more?: declined to answer Highest level of school completed/degree received: Associate degree: occupational, technical, vocational program Smoking Status: Current every day smoker What tobacco products do you use: cigarettes Smoking packs per day: 0.5 Smoking cigarettes per day: 10.0 Years smoked: 10 Smoking pack-years: 5.00 Smoking quit date/years: >15 years ago Do you use any of these nicotine containing products: E-Cigarettes and Vaping Products Second hand tobacco smoke exposure: No How often do you have a drink containing alcohol: 4 or more times a week Alcohol type: hard liquor How many standard drinks containing alcohol do you have on a typical day: 5 or 6 How often do you have six or more drinks on one occasion: Daily or almost daily AUDIT-C Alcohol total score: 10 Non-prescribed substance use: marijuana (any form) Caffeine: Yes How often does anyone, including family, friends and others, physically hurt you : decline to answer How often does anyone, including family, friends and others, insult or talk down to you: decline to answer How often does anyone, including family, friends and others, threaten you with harm: decline to answer How often does anyone, including family, friends and others, scream or curse at you: decline to answer service: No Health Related Social Needs: unsheltered homelessness (Z59.02) Exam Narrative: Exam Narrative: Restless in apparent discomfort per usual. Area mainly gets up but some water in his mouth and spit that out. Has couple water bottles with him. Dentition is disheveled. Mucous membranes appear pale. Skin is cool and dry. Cranial nerves 2-12 intact. Moving all extremities without difficulty. Ambulating steadily. Heart is in regular rate. Blood pressure noted to be a little elevated on arrival. Clonidine patch on right upper chest. Const: Vital Signs, click to edit/add: Vital Signs - 24 hr 06/13/24 03:58 06/13/24 04:28 06/13/24 04:45 Temperature 98.2 F 98.2 F Pulse Rate [Right Pulse Oximeter] 70 Respiratory Rate 20 Blood Pressure [Ri ght Upper Arm] 172/98 H Pulse Oximetry 100 100 Oxygen Delivery Me thod Room Air 06/13/24 05:35 06/13/24 05:37 Temperature 98.2 F 98.2 F Pulse Rate [Right Pulse Oximeter] 75 75 Respiratory Rate 20 20 Blood Pressure [Ri ght Upper Arm] 154/84 H 154/84 H Pulse Oximetry 100 Oxygen Delivery Me thod Room Air Documenting provider has reviewed patient's vital signs: yes Course Vital Signs Vital signs: Initial Vital Signs Temperature 98.2 F 06/13/24 03:58 Temperature Source Temporal Artery Scan 06/13/24 03:58 Pulse Rate 70 06/13/24 03:58 Respiratory Rate 20 06/13/24 03:58 Blood Pressure 172/98 H 06/13/24 03:58 Blood Pressure Mean 122 H 06/13/24 03:58 Blood Pressure Position Sitting 06/13/24 03:58 Pulse Oximetry 100 06/13/24 03:58 Oxygen Delivery Method Room Air 06/13/24 03:58 Vital Signs Temperature 98.2 F 06/13/24 03:58 Pulse Rate 70 06/13/24 03:58 Respiratory Rate 20 06/13/24 03:58 Blood Pressure 172/98 H 06/13/24 03:58 Pulse Oximetry 100 06/13/24 03:58 Oxygen Delivery Method Room Air 06/13/24 03:58 Temperature 98.2 F 06/13/24 05:37 Pulse Rate 75 06/13/24 05:37 Respiratory Rate 20 06/13/24 05:37 Blood Pressure 154/84 H 06/13/24 05:37 Pulse Oximetry 100 06/13/24 05:35 Oxygen Delivery Method Room Air 06/13/24 05:35 Medications Administered Medications: Discontinued Medications Generic Name Dose Route Start Last Admin Trade Name Kleber PRN Reason Stop Dose Admin Dexamethasone 10 mg 06/13/24 05:15 06/13/24 05:15 Dexamethasone 10 Mg/Ml Inj IM 06/13/24 05:16 10 mg ONCE ONE Administration Diphenhydramine HCl 50 mg 06/13/24 04:13 06/13/24 04:29 Diphenhydramine 50 Mg/Ml Inj IM 06/13/24 04:14 50 mg ONCE ONE Administration Droperidol 1.25 mg 06/13/24 05:09 06/13/24 05:25 Droperidol 2.5 Mg/Ml Inj IM 06/13/24 05:10 Not Given ONCE ONE Ketorolac Tromethamine 30 mg 06/13/24 04:13 06/13/24 04:28 Ketorolac 30 Mg/Ml Inj IM 06/13/24 04:14 30 mg ONCE ONE Administration Lorazepam 2 mg 06/13/24 04:13 06/13/24 04:28 Lorazepam 2 Mg/Ml Inj IM 06/13/24 04:14 2 mg ONCE ONE Administration Metoclopramide HCl 10 mg 06/13/24 04:13 06/13/24 04:28 Metoclopramide Hcl 5 Mg/Ml Inj IM 06/13/24 04:14 10 mg ONCE ONE Administration Medical Decision Making MDM Narrative Medical decision making narrative: Requesting typical IM dosings of medication for cyclic vomiting. Practice historically is that will receive these medications and leave pending improvement. Considering recent history it might be prudent to check some labs this time. Antonio was disinclined to stay for this but ultimately willing to at least check a hemoglobin. I would little concerned that in during time of waiting for lab results, might decompensate further. This though would be emotional/psychological response primarily. Given IM diphenhydramine, lorazepam, ketorolac and metoclopramide. Hemoglobin returns at 10.1 Still restless a gulping and vomiting water. Is not sure that he is improving and thinks he might need more medication. We discussed this for a little while. Now that droperidol is available was considering this however he has received some metoclopramide. Perhaps half dose of droperidol yet be effective. Regardless repeat dosing of something might be beneficial psychologically. There was mention of Versed but he has already received lorazepam and I would like to limit benzodiazepines generally. Apparently haloperidol has caused dystonic reactions and olanzapine an anaphylactic reaction with tongue swelling/macroglossia. Claudio proposes a steroid. I suppose dexamethasone should not be a problem. Ordered for this. Departed the emergency department following dosing of dexamethasone. See patient discharge plan for further discussion Lab Data Labs: Lab Results 06/13/24 Range/Units 04:38 Hgb 10.1 L (13.5-17.5) gm/dL Discharge Plan Discharge Clinical Impression: Cyclic vomiting syndrome, Anemia Patient Disposition: Home w/ Parent or Adult Condition: Improved Additional Instructions: Best wishes in your efforts at continued sobriety. Prescriptions: No Action lorazepam 0.5 mg tablet 0.5 mg PO DAILY PRN prochlorperazine 25 mg suppository 25 mg [place] Q12H PRN lisinopril 10 mg tablet 10 mg PO DAILY hydroxyzine HCl 25 mg tablet 25 - 50 mg PO Q6H PRN ondansetron 4 mg tablet,disintegrating 4 mg PO Q8H PRN Patient Comments: DISSOLVE 1 TABLET ON THE TONGUE EVERY 8 HOURS NEEDED FOR NAUSEA OR VOMITING desvenlafaxine succinate 50 mg tablet extended release 24 hr 50 mg PO DAILY trazodone 50 mg tablet 25 mg PO HS PRN clonidine 0.1 mg/24 hr patch weekly 1 patch topical .weekly melatonin 3 mg tablet 3 mg PO HS PRN dextroamphetamine-amphetamine [Adderall XR] 20 mg capsule,extended release 24hr 20 mg PO DAILY dextroamphetamine-amphetamine [Adderall] 10 mg tablet 5 - 10 mg PO DAILY gabapentin 600 mg tablet 600 mg PO HS naltrexone 50 mg tablet 50 mg PO DAILY sodium chloride 1,000 mg tablet,soluble 1,000 mg PO TID Qty: 10 0RF potassium bicarb-citric acid 25 mEq tablet, effervescent 25 meq PO BID Qty: 4 0RF Follow Up/Referrals: Deepthi Mc PA-C [Primary Care Provider] - Stand Alone Forms: MyHealth Info Instructions
[2024-06-13 04:28] VITALS: TEMP 36.8
[2024-06-13] MEDS: KETOROLAC 30 MG/ML inj IM (04:28)
[2024-06-13] MEDS: METOCLOPRAMIDE HCL 5 MG/ML INJ 10 MG IM (04:28)
[2024-06-13] MEDS: LORazepam 2 MG/ML inj IM (04:28)
[2024-06-13] MEDS: diphenhydrAMINE 50 MG/ML inj IM (04:29)
[2024-06-13 04:45] VITALS: O2SAT 100
[2024-06-13 04:45] LABS: Hemoglobin* 10.1 gm/dL (13.5-17.5)
[2024-06-13] MEDS: dexAMETHasone 10 MG/ML inj IM (05:15)
[2024-06-13 05:35] VITALS: BP 154/84; PULSE 75; RESP 20; TEMP 36.8; O2SAT 100
[2024-06-13 05:37] VITALS: BP 154/84; PULSE 75; RESP 20; TEMP 36.8
== END 2024-06-13 05:37 | disposition home or self-care (01) ==
PROVIDERS: Emergency Provider Family Medicine; PCP Physician Assistant Medical
DX: R11.15 Cyclical vomiting syndrome unrelated to migraine (principal); D64.9 Anemia, unspecified
CPT/HCPCS: 36415; 85018; 94761; 96372; 96374; 99284; J1100; J1200; J1885; J2060; J2765

== ENCOUNTER 2024-06-14 18:35 | Outpatient (CLI) | payer BC, SELFPAY | END 2024-06-14 18:36 | disposition home or self-care (01) | LOC: AMB 06-15 21:35 | PROVIDERS: PCP Physician Assistant Medical; Visit Provider Family Medicine | DX: R10.9 Unspecified abdominal pain (principal) | CPT/HCPCS: A0425; A0427 ==

== ENCOUNTER 2024-06-23 13:53 | Outpatient (CLI) | payer BC, SELFPAY | END 2024-06-23 13:54 | disposition home or self-care (01) | PROVIDERS: PCP Physician Assistant Medical; Visit Provider Emergency Medicine Emergency Medical Services | DX: R11.10 Vomiting, unspecified (principal) | CPT/HCPCS: A0425; A0427 ==

== ENCOUNTER 2024-08-16 17:48 | Emergency (ER) | payer BC, SELFPAY ==
--- OUTSIDE RECORDS SUMMARY | 2024-08-16 17:50 | XMS_ITS | Encounter Summary ---
Author Organization [facility] Address [address] [place] [address]. [place] [address] Care Team Providers Care Mh Teacher Name Role Phone Deepthi Mc Primary Care Provider [phone] Reason for Visit * Reason Comments Nausea & Vomiting Anxiety Abdominal Pain Encounter Details Date Type Department Care Team (Late st Contact Info) Description 07/12/2024 10:10 PM PUMP HOUSE ENGINEER - 07/13/2024 6:40 AM [facility] Emergency [facility] Emergency Department [address] [place] [phone] Jack Cornejo MD [facility] [address] [place] [phone] Geraldine Saravia MD [address] [place] [address] Nausea and vomiting, unspecified vomiting type Discharge Disposition: Home or Self Care Social History Tobacco Use Types Packs/Day Years Used Date Smoking Tobacco: Never Assessed AUDIT-C Answer Date Recorded Q1: How often do you have a drink containing alcohol? 4 or more times a week 06/15/2023 Q2: How many drinks containi ng alcohol do you have on a typical day when you are drinking? 10 or more Q3: How often do you have si x or more drinks on one occasion? Daily or almost daily 06/15/2023 Adolescent Education Answer Date Record ed Getting School Help Needed Not on file 04/11 Food Insecurity Answer Date Recorded Within the past 12 months, d id you worry that your food would run out before you got money to buy more? No 06/23/2024 Within the past 12 months, d id the food you bought just not last and you didn t have money to get more? Yes 06/23/2024 Housing Stability Answer Date Recorded Do you have housing? (Federica horton is defined as stable permanent housing and does not include staying ouside in a car, in a tent, in an abandoned building, in an overnight fci, or couch-surfing.) Yes 06/23/2024 Are you worried about losing your housing? No 06/23/2024 Financial Resource Strain Answer Date R ecorded Within the past 12 months, h ave you or your family members you live with been unable to get utilities (heat, electricity) when it was really needed? Yes 06/23/2024 Transportation Needs Answer Date Record ed Within the past 12 months, h as lack of transportation kept you from medical appointments, getting your medicines, non-medical meetings or appointments, work, or from getting things that you need? No 06/23/2024 Interpersonal Safety Answer Date Record ed Do you feel physically and e motionally safe where you currently live? Yes 06/23/2024 Within the past 12 months, h ave you been hit, slapped, kicked or otherwise physically hurt by someone? No 06/23/2024 Within the past 12 months, h ave you been humiliated or emotionally abused in other ways by your partner or ex-partner? No 06/23/2024 Sex and Gender Information Value Date Recorded Sex Assigned at Not on file Legal Sex Male 11:22 AM CDT Gender Identity Not on file Sexual Orientation Not on file documented as of this encounter Last Filed Vital Signs Vital Sign Reading Time Taken Comments Blood Pressure 122/60 07/13/2024 6:16 AM PUMP HOUSE ENGINEER Pulse 117 07/12/2024 10:01 PM PUMP HOUSE ENGINEER Temperature 36.7 C (98.1 F) 07/12/2024 10:01 PM PUMP HOUSE ENGINEER Respiratory Rate 30 07/12/2024 10:01 PM PUMP HOUSE ENGINEER Oxygen Saturation 100% 07/12/2024 10:01 PM PUMP HOUSE ENGINEER Inhaled Oxygen Concentration - - Weight 98.9 kg (218 lb) 07/12/2024 10:01 PM PUMP HOUSE ENGINEER Height - - Body Mass Index 29.57 07/11/2024 3:12 PM PUMP HOUSE ENGINEER documented in this encounter Discharge Instructions * Discharge Instructions* Geraldine Saravia MD - 07/13/2024 5:49 AM PUMP HOUSE ENGINEER You were seen in the Emergency Department today for nausea, vomiting, abdominal pain. I would recommend that you take all of your medications as prescribed and avoid marijuana because this is likely only making your symptoms worse if you use it. Please return to the ER if you experience uncontrolled pain, inability to keep fluids down, fever not better with Tylenol/Motrin, and/or for any other new or concerning symptoms, otherwise please follow up with your primary doctor in 5-7 days for recheck. Below is some information you might find useful. Thank you for choosing [facility]. It was a pleasure taking care of you today! - Dr. Geraldine Saravia HOUSE ENGINEER HOUSE ENGINEER * Attachments The following attachments cannot be sent through Care Everywhere. * Cannabinoid Hyperemesis Syndrome (Citizen Of [place]) documented in this encounter Medications at Time of Discharge Acetaminophen 325 MG CAPS Take 650 mg by mouth every 6 hours as needed (pain, fever). amphetamine-dextro amphetamine (ADDERALL XR) 20 MG 24 hr capsule Take 20 mg by mouth every morning. amphetamine-dextro amphetamine (ADDERALL) 10 MG tablet Take 10 mg by mouth every evening. 06/03/2023 cloNIDine (CATAPRES-TTS1) 0.1 MG/24HR WK patch Place 1 patch onto the skin once a week. Every Friday04/28/2023 desvenlafaxine (PRISTIQ) 100 MG 24 hr tablet Take 100 mg by mouth daily. 03/09/2022 folic acid (FOLVITE) 1 MG tabletIndications: Alcohol dependence with withdrawal with complication (H) Take 1 tablet (1 mg) by mouth daily 08/15/2023 gabapentin (NEURONTIN) 600 MG tablet Take 600 mg by mouth 3 times daily. hydrOXYzine (ATARAX) 25 MG tablet Take 25 mg by mouth every 6 hours as needed for anxiety. 02/28/2021 lisinopril (ZESTRIL) 10 MG tablet Take 10 mg by mouth daily 11/28/2021 LORazepam (ATIVAN) 0.5 MG tablet Take 0.5 mg by mouth daily as needed for anxiety. 06/19/2021 multivitamin w/minerals (THERA-VIT-M) tabletIndications: Alcohol dependence with withdrawal with complication (H) Take 1 tablet by mouth daily 08/15/2023 ondansetron (ZOFRAN) 4 MG tablet Take 4 mg by mouth every 8 hours as needed for nausea pantoprazole (PROTONIX) 40 MG EC tablet Take 40 mg by mouth 2 times daily. prochlorperazine (COMPAZINE) [address] 25 mg rectally every 12 hours as needed 12/03/2021 ramelteon (ROZEREM) 8 MG tablet Take 8 mg by mouth at bedtime. traZODone (DESYREL) 50 MG tablet Take 50 mg by mouth nightly as needed for sleep. 08/23/2022 documented as of this encounter ED Notes * Caio Vora RN - 07/13/2024 6:18 AM CST AVS discussed with Pt, questions encouraged and answered, Pt discharged to chemical dependence treatment facility [facility], facility staff on their way to transport Pt. HOUSE ENGINEER * Caio Voar RN - 07/13/2024 6:08 AM CST Beatriz at [facility] called and updated, facility staff will be sent to transport Pt back. HOUSE ENGINEER * Geraldine Saravia MD - 07/13/2024 2:10 AM CST EMERGENCY DEPARTMENT SIGN OUT NOTE ED COURSE AND MEDICAL DECISION MAKING Patient was signed out to me by Dr Jack Cornejo at 2:10 AM. In brief, Claudio Sapp is a 28 year old male who initially presented with lower abdominal pain, nausea, vomiting, and chills that started around 0200 and felt similar to his symptoms that promptedhis ED presentation the day prior. Patient is currently staying at a drug treatment facility; he last used cannabis 3.5 weeks ago, last used alcohol 3 weeks ago. He mentions that Zofran has not been helping relieve him of his symptoms, instead states that Valium, Zyprexa, and Toradol have helped previously; prefers IM injection. At time of sign out, disposition was pending labs and reassessment. BMP revealed hyponatremia and hypochloremia with sodium of 127 and chloride of 91, suspect related to GI losses. Lipase within normal limits, symptoms less likely related to acute pancreatitis. Sample sent for LFTs was somewhat compromised due to lipemia but total bilirubin and alk phos were withinnormal limits. I have low suspicion for acute hepatobiliary disease given history and exam. UA notable for ketones, again suggestive of GI losses. No evidence of infection. I rechecked the patient multiple times. He slept comfortably after initial interventions. On reevaluation, he reported feeling improved and actually was sipping on water while I was in the room. He then stated that he felt tired and was not able to hold much of a coherent conversation regarding disposition/next steps. With this, did offer additional fluids and repeat Zyprexa which she was interested in. After these 2 interventions, he was able to wake up and felt comfortable going home. He has been ambulatory and tolerating p.o. without difficulty/recurrence of emesis so I believe this is very reasonable. RN spoke with staff at treatment facility who felt comfortable with him returning today. I recommended continued conservative management of symptoms and that he avoid using all substances and in particular, marijuana. We discussed warning signs and symptoms, and I instructed staff at facility to return Claudio to theemergency department if he develops any new or worsening symptoms. They expressed understanding andagreement with this plan of care, all questions were answered, and Claudio was discharged from the emergency department in stable condition. 3:27 AM Rechecked and updated the patient. 5:50 AM I rechecked the patient FINAL IMPRESSION 1. Nausea and vomiting, unspecified vomiting type ED MEDS Medications OLANZapine (zyPREXA) injection 5 mg (5 mg Intramuscular $Given 07/12/24 1057) LORazepam (ATIVAN) injection 1 mg (1 mg Intravenous $Given 12/23/24 2330) ketorolac (TORADOL) injection 15 mg (15 mg Intravenous $Given 07/12/24 2351) lactated ringers BOLUS 1,000 mL (0 mLs Intravenous Stopped 07/13/24 0230) metoclopramide (REGLAN) injection 10 mg (10 mg Intravenous $Given 07/13/24 0107) OLANZapine (zyPREXA) injection 5 mg (5 mg Intramuscular $Given 07/13/24 0429) lactated ringers BOLUS 500 mL (0 mLs Intravenous Stopped 07/13/24 0535) LAB Labs Ordered and Resulted from Time of ED Arrival to Time of ED Departure ROUTINE UA WITH MICROSCOPIC REFLEX TO CULTURE - Abnormal Result Value Color Urine Light Yellow Appearance Urine Clear Glucose Urine Negative Bilirubin Urine Negative Ketones Urine 40 (*) Specific [place] Urine 1.017 Blood Urine Negative pH Urine 6.0 Protein Albumin Urine Negative Urobilinogen Urine <2.0 Nitrite Urine Negative Leukocyte Esterase Urine Negative RBC Urine 1 WBC Urine 1 BASIC METABOLIC PANEL - Abnormal Sodium 127 (*) Potassium 4.4 Chloride 91 (*) Carbon Dioxide (CO2) 23 Anion Gap 13 Urea Nitrogen 22.0 (*) Creatinine 0.92 GFR Estimate >90 Calcium 9.6 Glucose 91 CBC WITH PLATELETS AND DIFFERENTIAL - Abnormal WBC Count 13.1 (*) RBC Count 4.08 (*) Hemoglobin 10.2 (*) Hematocrit 30.8 (*) MCV 76 (*) MCH 25.0 (*) MCHC 33.1 RDW 17.6 (*) Platelet Count 462 (*) % Neutrophils 73 % Lymphocytes 16 % Monocytes 11 % Eosinophils 0 % Basophils 0 % Immature Granulocytes 0 NRBCs per 100 WBC 0 Absolute Neutrophils 9.5 (*) Absolute Lymphocytes 2.1 Absolute Monocytes 1.4 (*) Absolute Eosinophils 0.1 Absolute Basophils 0.0 Absolute Immature Granulocytes 0.1 Absolute NRBCs 0.0 LIPASE - Normal Lipase 27 HEPATIC FUNCTION PANEL Protein Total 6.8 Albumin 4.4 Bilirubin Total 0.9 Alkaline Phosphatase 78 AST ALT Bilirubin Direct RADIOLOGY No orders to display DISCHARGE MEDS Discharge Medication List as of 07/13/2024 6:10 AM Leonid Kim, am serving as a scribe to document services personally performed by Dr. Geraldine Saravia based on my observations and the provider's statements to me. I, Geraldine Saravia MD, attest that Leonid Gee is acting in a scribe capacity, has observed my performance of the services and has documented them in accordance with my direction. Geraldine Saravia MD [facility] EMERGENCY DEPARTMENT [address] [place] [phone] Geraldine Saravia MD 07/13/24 1313 HOUSE ENGINEER * Caio Vora RN - 07/12/2024 11:45 PM CST Pt stated nausea has improved somewhat after zofran and ativan, still has abdominal pain rated 5/10and is requesting something more to help with the pain and nausea, will give toradol and zyprexa next. HOUSE ENGINEER * Jack Cornejo MD - 07/12/2024 10:41 PM CST EMERGENCY DEPARTMENT ENCOUNTER NAME: Claudio Sapp AGE: [age] year old male DATE OF : 1995 EVALUATION DATE & TIME: 07/12/2024 10:10 PM PCP: Deepthi Mc ED PROVIDER: Jack Cornejo MD Chief Complaint Patient presents with Nausea & Vomiting Anxiety Abdominal Pain FINAL IMPRESSION: 1. Nausea and vomiting, unspecified vomiting type ED COURSE & MEDICAL DECISION MAKING: Pertinent Labs & Imaging studies reviewed. (See chart for details) 28 year old male presents to the Emergency Department for evaluation of nausea, vomiting ED Course as of 07/13/24 0154 FriJul 12, 2024 [id number] Patient is a 20-year-old male with history of hyperemesis cannabinoid syndrome, alcohol dependence who presents the emergency department for evaluation of nausea vomiting and generalized abdominal pain. He was seen yesterday in the emergency department ultimately symptoms were well-controlled a nd was sent home however since this morning's had recurrent nausea vomiting and generalized abdominal pain. Denies any fevers but has had some dysuria. States this feels similar to prior flares of his hyperemesis cannabinoid syndrome although denies any marijuana use for the past 3 weeks. Also denies any alcohol use in the past 3 weeks and is currently in outpatient detox/substance use treatment.Denies any fevers. No cough or chest pain. On exam patient appears anxious. Hypertensive and slightly tachycardic but warm and well-perfused extremities. Abdomen is soft nontender nondistended, no guarding or rebound. Slightly dry mucous membranes. Offered an IV but patient would prefer to start with IM dosing of medications that he states is work better for the past. Will start with IM Toradol and Zyprexa. FriJul 13, 2024 0103 Repeat assessment patient's symptoms have improved somewhat but still having some ongoing nausea although without any vomiting. Given persistent symptoms we will recheck labs today to see if there is been any new significant metabolic derangements. Will give IV fluids and a dose of Reglan. 0153 CBC shows improving leukocytosis at 13.1 today. Stable anemia 10.2. At the end of my shift final disposition is pending symptomatic improvement as well as results of his labs. If his labs are reassuring suspect he will be safe for discharge home. If there is any significant derangements labs may require CT imaging to evaluate for acute underlying process although his abdominal exam is reassuring here without any focal tenderness, guarding or rebound. At the end of my shift patient signed out to a colleague of cory to update documentation and treatment plan as 10:37 PM I met and evaluated the patient. Medical Decision Making Obtained supplemental history:Supplemental history obtained?: No Reviewed external records: External records reviewed?: Inpatient Record: 07/11/2024, [facility] Emergency Department Care impacted by chronic illness:Alcohol and/or Drug Abuse or Dependence, Chronic Lung Disease, Hypertension, Mental Health, and Smoking / Nicotine Use Care significantly affected by social determinants of health:N/A Did you consider but not order tests?: Work up considered but not performed and documented in chart, if applicable Did you interpret images independently?: Independent interpretation of ECG and images noted in documentation, when applicable. Consultation discussion with other provider:Did you involve another provider (customer care consultant, , pharmacy, etc.)?: No Admission considered. Patient was signed out to the oncoming physician, disposition pending. Not Applicable At the conclusion of the encounter I discussed the results of all of the tests and the disposition.The questions were answered. The patient or family acknowledged understanding and was agreeable with the care plan. 0 minutes of critical care time MEDICATIONS GIVEN IN THE EMERGENCY: Medications lactated ringers BOLUS 1,000 mL (1,000 mLs Intravenous $New Bag 07/13/24 0108) OLANZapine (zyPREXA) injection 5 mg (5 mg Intramuscular $Given 07/12/24 235) LORazepam (ATIVAN) injection 1 mg (1 mg Intravenous $Given 07/12/24 2330) ketorolac (TORADOL) injection 15 mg (15 mg Intravenous $Given 07/12/24 235) metoclopramide (REGLAN) injection 10 mg (10 mg Intravenous $Given 07/13/24 0107) NEW PRESCRIPTIONS STARTED AT TODAY'S ER VISIT New Prescriptions No medications on file HPI Patient information was obtained from: Patient Use of Global Professional: N/A Claudio Sapp is a 28 year old male with a pertinent history of cannabinosis, depression, ADHD, alcohol dependence with withdrawal and seizure, cannabis use with withdrawal, asthma, cyclical vomiting syndrome, GERD, hypertension, PTSD, social anxiety, somatoform disorder who presents to this ED by walk-in for evaluation of nausea and vomiting, anxiety, abdominal pain. Per chart review: Patient was seen yesterday (07/11/2024) at [facility] Emergency Department for evaluation of abdominal pain. Patient was administered Toradol, Benadryl, Valium, Zofran with improvement of symptoms. He was discharged back to his dependency program facility in stable condition. Patient reports nausea, vomiting, lower abdominal pain with cramping, and chills at this time; he had been affected by these same symptoms prompting his emergency department visit yesterday as well. He notes that his vomiting resumed this morning at 2 AM. Patient is currently staying at a drug treatment facility; he last used cannabis 3.5 weeks ago, last used alcohol 3 weeks ago. He mentions thatZofran has not been helping relieve him of his symptoms, instead states that Valium, Zyprexa, and Toradol have helped previously; prefers IM injection. Patient further endorses dysuria. He is currently taking compazine, his last dose being between 3-4 PM today. Patient denies any other symptoms at this time. REVIEW OF SYSTEMS Refer to the HPI PAST MEDICAL HISTORY: Past Medical History: Diagnosis Date ADD (attention deficit disorder) 02/04/2013 Alcohol dependence (H) 03/25/2020 Has previously tried clonidine and naltrexone. Asthma 12/11/2007 childhood asthma, not currently requiring any inhalers or medication. Cannabis dependence, continuous abuse (H) 11/05/2013 Cyclical vomiting 04/04/2016 Gastroesophageal reflux disease 07/07/2020 Hypokalemia 07/07/2020 Hyponatremia 07/07/2020 Nicotine dependence 03/26/2020 Primary hypertension 07/07/2020 PTSD (post-traumatic stress disorder) 05/16/2014 Under the care of Dr. Rafat Falcon for mental health care. [facility] . Initial intake 12/10/12 Previous Medication Trials: Paxil- caused numbness Buspar- ineffective in past- though was restarted Strattera- 2012, restarted 02/2015 Fluoxetine- 2012- decreased libido Wellbutrin- 2012- decreased appetite Recurrent major depressive disorder (H) 07/11/2020 Social anxiety disorder 02/26/2016 Somatoform disorder 07/13/2020 Vitamin D deficiency 07/30/2011 PAST SURGICAL HISTORY: Past Surgical History: Procedure Laterality Date ESOPHAGOSCOPY, GASTROSCOPY, DUODENOSCOPY (EGD), COMBINED N/A 06/01/2024 Procedure: Esophagoscopy, gastroscopy, duodenoscopy (EGD), combined; Surgeon: Chas Cage MD; Location: [facility] PICC INSERTION - TRIPLE LUMEN Right 05/30/2024 43-3cm, Lateral brachial vein CURRENT MEDICATIONS: Acetaminophen 325 MG CAPS amphetamine-dextroamphetamine (ADDERALL XR) 20 MG 24 hr capsule amphetamine-dextroamphetamine (ADDERALL) 10 MG tablet cloNIDine (CATAPRES-TTS1) 0.1 MG/24HR WK patch desvenlafaxine (PRISTIQ) 100 MG 24 hr tablet folic acid (FOLVITE) 1 MG tablet gabapentin (NEURONTIN) 600 MG tablet hydrOXYzine (ATARAX) 25 MG tablet lisinopril (ZESTRIL) 10 MG tablet LORazepam (ATIVAN) 0.5 MG tablet multivitamin w/minerals (THERA-VIT-M) tablet ondansetron (ZOFRAN) 4 MG tablet pantoprazole (PROTONIX) 40 MG EC tablet prochlorperazine (COMPAZINE) 25 MG suppository ramelteon (ROZEREM) 8 MG tablet traZODone (DESYREL) 50 MG tablet ALLERGIES: Allergies Allergen Reactions Haloperidol Shortness Of Breath Other Reaction(s): Extrapyramidal Symptoms, Dystonic reaction, Tightness in airway Droperidol Other (See Comments) Pt states he gets lock jaw from medication. FAMILY HISTORY: No family history on file. SOCIAL HISTORY: Social History Socioeconomic History Marital status: Single Social Drivers of Health Financial Resource Strain: High Risk (06/23/2024) Financial Resource Strain Within the past 12 months, have you or your family members you live with been unable to get utilities (heat, electricity) when it was really needed?: Yes Food Insecurity: High Risk (06/23/2024) Food Insecurity Within the past 12 months, did you worry that your food would run out before you got money to buy more?: No Within the past 12 months, did the food you bought just not last and you didn???t have money to getmore?: Yes Transportation Needs: Low Risk (06/23/2024) Transportation Needs Within the past 12 months, has lack of transportation kept you from medical appointments, getting your medicines, non-medical meetings or appointments, work, or from getting things that you need?: No Social Connections: Socially Isolated (11/21/2023) [facility] from [facility] Social Connections Do you often feel lonely or isolated from those around you?: 4 Interpersonal Safety: Low Risk (06/23/2024) Interpersonal Safety Do you feel physically and emotionally safe where you currently live?: Yes Within the past 12 months, have you been hit, slapped, kicked or otherwise physically hurt by someone?: No Within the past 12 months, have you been humiliated or emotionally abused in other ways by your partner or ex-partner?: No Housing Stability: Low Risk (06/23/2024) Housing Stability Do you have housing? : Yes Are you worried about losing your housing?: No VITALS: BP 129/89 Pulse 117 Temp 98.1 ??F (36.7 ??C) (Temporal) Resp 30 Wt 98.9 kg (218 lb) SpO2 100% BMI 29.57 kg/m?? PHYSICAL EXAM Constitutional: Well developed, Well nourished, NAD, Generally anxious-appearing. HENT: Normocephalic, Atraumatic, mucous membranes moist, Neck- trachea midline, No stridor. Eyes:EOMI, Conjunctiva normal, No discharge. Respiratory: Normal breath sounds, No respiratory distress, No wheezing. Cardiovascular: Normal heart rate, Regular rhythm, No murmurs. Abdominal: Soft, No tenderness, No rebound or guarding. Musculoskeletal: no deformity or malalignment. Integument: Warm, Dry, No erythema. Neurologic: Alert & oriented x 3. Psychiatric: Affect normal, Cooperative. LAB: All pertinent labs reviewed and interpreted. Results for orders placed or performed during the hospital encounter of 07/12/24 CBC with platelets and differential Result Value Ref Range WBC Count 13.1 (H) 4.0 - 11.0 10e3/uL RBC Count 4.08 (L) 4.40 - 5.90 10e6/uL Hemoglobin 10.2 (L) 13.3 - 17.7 g/dL Hematocrit 30.8 (L) 40.0 - 53.0 % MCV 76 (L) 78 - 100 fL MCH 25.0 (L) 26.5 - 33.0 pg MCHC 33.1 31.5 - 36.5 g/dL RDW 17.6 (H) 10.0 - 15.0 % Platelet Count 462 (H) 150 - 450 10e3/uL % Neutrophils 73 % % Lymphocytes 16 % % Monocytes 11 % % Eosinophils 0 % % Basophils 0 % % Immature Granulocytes 0 % NRBCs per 100 WBC 0 <1 /100 Absolute Neutrophils 9.5 (H) 1.6 - 8.3 10e3/uL Absolute Lymphocytes 2.1 0.8 - 5.3 10e3/uL Absolute Monocytes 1.4 (H) 0.0 - 1.3 10e3/uL Absolute Eosinophils 0.1 0.0 - 0.7 10e3/uL Absolute Basophils 0.0 0.0 - 0.2 10e3/uL Absolute Immature Granulocytes 0.1 <=0.4 10e3/uL Absolute NRBCs 0.0 10e3/uL RADIOLOGY: Reviewed all pertinent imaging. Please see official radiology report. No orders to display PROCEDURES: None [facility] Documentation: [facility] Diagnoses: I, Christian Sanchez, am serving as a scribe to document services personally performed by Jack Cornejo MDbased on my observation and the provider's statements to me. I, Jack Cornejo MD, attest that Christian Sanchez is acting in a scribe capacity, has observed my performance of the services and has documentedthem in accordance with my direction. Jack Cornejo MD [facility] EMERGENCY DEPARTMENT [address] [place] [phone] Jack Cornejo MD 07/13/24 0118 Jack Cornejo MD 07/13/24 0154 HOUSE ENGINEER HOUSE ENGINEER * Gadiel Reddy RN - 07/12/2024 10:01 PM CST The patient reports nausea and vomiting on and off for the past 3 weeks. Hx of hyperemesis from cannabis use. He is anxious in triage. He states this round of emesis has been going on for 3 days. PT comes from [facility] for chemical dependency treatment. HOUSE ENGINEER documented in this encounter Plan of Treatment Not on file documented as of this encounter Procedures Procedure Name Priority Date/Time Associated Diagnosis Comments ROUTINE UA WITH MICROSCOPIC REFLEX TO CULTURE STAT 07/13/2024 4:26 AM PUMP HOUSE ENGINEER CBC WITH PLATELETS AND DIFFERENTIAL STAT 07/13/2024 1:19 AM PUMP HOUSE ENGINEER CBC WITH PLATELETS & DIFFERENTIAL STAT 07/13/2024 1:19 AM PUMP HOUSE ENGINEER LIPASE STAT 07/13/2024 1:19 AM PUMP HOUSE ENGINEER HEPATIC FUNCTION PANEL STAT 07/13/2024 1:19 AM PUMP HOUSE ENGINEER BASIC METABOLIC PANEL STAT 07/13/2024 1:19 AM PUMP HOUSE ENGINEER documented in this encounter Results * (ABNORMAL) UA with Microscopic reflex to Culture (07/13/2024 4:26 AM PUMP HOUSE ENGINEER) Color Urine Light Yellow Colorless, Straw, Light Yellow, Yellow 07/13/2024 4:49 AM PUMP HOUSE ENGINEER [facility] Appearance Urine Clear Clear 07/13/20 4:49 AM PUMP HOUSE ENGINEER [facility] Glucose Urine Negative Negative mg/dL 07/13/2024 4:49 AM PUMP HOUSE ENGINEER [facility] Bilirubin Urine Negative Negative 4:49 AM PUMP HOUSE ENGINEER [facility] Ketones Urine 40(A) Negative mg/dL 07/13/2024 4:49 AM PUMP HOUSE ENGINEER [facility] Specific [place] Urine 1.017 1.001 - 1.030 07/13/2024 4:49 AM PUMP HOUSE ENGINEER [facility] Blood Urine Negative Negative 07/13/2024 4:49 AM PUMP HOUSE ENGINEER [facility] pH Urine 6.0 5.0 - 7.0 07/13/2024 4:49 AM PUMP HOUSE ENGINEER [facility] Protein Albumin Urine Negative Negative mg/dL 07/13/2024 4:49 AM PUMP HOUSE ENGINEER [facility] Urobilinogen Urine <2.0 <2.0 mg/dL 07/13/2024 4:49 AM PU[employer] HOUSE ENGINEER [facility] Nitrite Urine Negative Negative 07/13/2024 4:49 AM PUMP HOUSE ENGINEER [facility] Leukocyte Esterase Urine Negative Negative 07/13/2024 4:49 AM PUMP HOUSE ENGINEER [facility] RBC Urine 1 <=2 /HPF 07/13/2024 4:49 AM PUMP HOUSE ENGINEER [facility] WBC Urine 1 <=5 /HPF 07/13/2024 4:49 AM PUMP HOUSE ENGINEER [facility] Urine URINE SPECIMEN OBTAINED BY CLEAN CATCH PROCEDURE / Unknown Non-blood Collection / Unknown 07/13/2024 4:26 AM PUMP HOUSE ENGINEER 07/13/2024 4:40 AM PUMP HOUSE ENGINEER Narrative [facility] - 07/13/2024 4:49 AM PUMP HOUSE ENGINEER Urine Culture not indicated Jack Cornejo MD LAB - URINE ORDERABLES Final Res ult [facility] [address] [place] [address], [facility] * (ABNORMAL) CBC with platelets and differential (07/13/2024 1:19 AM PUMP HOUSE ENGINEER) WBC Count 13.1(H) 4.0 - 11.0 10e3/uL 07/13/2024 1:27 AM PUMP HOUSE ENGINEER [facility] RBC Count 4.08(L) 4.40 - 5.90 10e6/uL 07/13/2024 1:27 AM PUMP HOUSE ENGINEER [facility] Hemoglobin 10.2(L) 13.3 - 17.7 g/dL 07/13/2024 1:27 AM PUMP HOUSE ENGINEER [facility] Hematocrit 30.8(L) 40.0 - 53.0 % 07/13/2024 1:27 AM PUMP HOUSE ENGINEER [facility] MCV 76(L) 78 - 100 fL 07/13/2024 1:27 AM PUMP HOUSE ENGINEER [facility] MCH 25.0(L) 26.5 - 33.0 pg 07/13/2024 1:27 AM PUMP HOUSE ENGINEER [facility] MCHC 33.1 31.5 - 36.5 g/dL 07/13/2024 1:27 AM PUMP HOUSE ENGINEER [facility] RDW 17.6(H) 10.0 - 15.0 % 07/13/2024 1:27 AM PUMP HOUSE ENGINEER [facility] Platelet Count 462(H) 150 - 450 10e3/uL 07/13/2024 1:27 AM PU[employer] HOUSE ENGINEER [facility] % Neutrophils 73 % 07/13/2024 1:27 AM PU[employer] HOUSE ENGINEER [facility] % Lymphocytes 16 % 07/13/2024 1:27 AM PU[employer] HOUSE ENGINEER [facility] % Monocytes 11 % 07/13/2024 1:27 AM PU[employer] HOUSE ENGINEER [facility] % Eosinophils 0 % 07/13/2024 1:27 AM PU[employer] HOUSE ENGINEER [facility] % Basophils 0 % 07/13/2024 1:27 AM PU[employer] HOUSE ENGINEER [facility] % Immature Granulocytes 0 % 07/13/2024 1:27 AM PUMP HOUSE ENGINEER [facility] NRBCs per 100 WBC 0 <1 /100 024 1:27 AM PUMP HOUSE ENGINEER [facility] Absolute Neutrophils 9.5(H) 1.6 - 8.3 10e3/uL 07/13/2024 1:27 AM PU[employer] HOUSE ENGINEER [facility] Absolute Lymphocytes 2.1 0.8 - 5.3 10e3/uL 07/13/2024 1:27 AM [facility] Absolute Monocytes 1.4(H) 0.0 - 1.3 10e3/uL 07/13/2024 1:27 AM [facility] Absolute Eosinophils 0.1 0.0 - 0.7 10e3/uL 07/13/2024 1:27 AM [facility] Absolute Basophils 0.0 0.0 - 0.2 10e3/uL 07/13/2024 1:27 AM [facility] Absolute Immature Granulocytes 0.1 <=0.4 10e3/uL 07/13/2024 1:[address] [facility] Absolute NRBCs 0.0 10e3/uL 07/13/2024 1:[address] [facility] Blood BLOOD SPECIMEN / Unknown Venipuncture / Unknown 07/13/2024 1:19 AM PUMP HOUSE ENGINEER 07/13/2024 1:23 AM PUMP HOUSE ENGINEER us Jack Cornejo MD LAB - BLOOD ORDERABLES Final Res ult [facility] [address] [place] [address], [place] * Lipase (07/13/2024 1:19 AM PUMP HOUSE ENGINEER) Pathologist [facility] Lipase 27 13 - 60 U/L 07/13/2024 3:10 AM [facility] Blood BLOOD SPECIMEN / Unknown Venipuncture / Unknown 07/13/2024 1:19 AM PUMP HOUSE ENGINEER 07/13/2024 1:23 AM [employer] HOUSE ENGINEER Jack Cornejo MD LAB - BLOOD ORDERABLES Final Res ult [facility] [address] [place] [address], [place] * Hepatic function panel (07/13/2024 1:19 AM PUMP HOUSE ENGINEER) Pathologist [facility] Protein Total 6.8 6.4 - 8.3 g/dL 07/13/2024 3:16 AM [facility] Albumin 4.4 3.5 - 5.2 g/dL 07/13/2024 3:16 AM [facility] Bilirubin Total 0.9 <=1.2 mg/dL 07/13/2024 3:16 AM [facility] Alkaline Phosphatase 78 40 - 150 U/L 07/13/2024 3:16 AM [facility] AST 07/13/2024 3:16 AM [facility] Comment:Unsatisfactory speci men - lipemic ALT 07/13/2024 3:16 AM [facility] Comment:Unsatisfactory speci men - lipemic Bilirubin Direct 07/13/20 3:16 AM [facility] Comment:Unsatisfactory speci men - lipemic Blood BLOOD SPECIMEN / Unknown Venipuncture / Unknown 07/13/2024 1:19 AM PU[employer] HOUSE ENGINEER 07/13/2024 1:23 AM [facility] Jack Cornejo MD LAB - BLOOD ORDERABLES Final Res ult Performing Organization Address City/State/[facility] Co de Phone Number [facility] [address] [facility] [address] * (ABNORMAL) Basic metabolic panel (07/13/2024 1:19 AM [facility]) Sodium 127(L) 135 - 145 mmol/L 07/13/2024 3:15 AM [facility] Potassium 4.4 3.4 - 5.3 mmol/L 07/13/2024 3:15 AM [facility] Chloride 91(L) 98 - 107 mmol/L 07/13/2024 3:15 AM [facility] Carbon Dioxide (CO2) 23 22 - 29 mmol/L 07/13/2024 3:15 AM [facility] Anion Gap 13 7 - 15 mmol/L 07/13/2024 3:15 AM [facility] Urea Nitrogen 22.0(H) 6.0 - 20.0 mg/dL 07/13/2024 3:15 AM [facility] Creatinine 0.92 0.67 - 1.17 mg/dL 07/13/2024 3:15 AM [facility] GFR Estimate >90 >60 mL/min/1.7 3m2 07/13/2024 3:15 AM [facility] Comment:eGFR calculated usin 2020 CKD-EPI equation. Calcium 9.6 8.8 - 10.4 mg/dL 07/13/2024 3:15 AM [facility] Comment:Reference intervals for this test were updated on 02/03/2024 to reflect our healthy population more accurately. There may be differences in the flagging of prior results with similar values performed with this method. Those prior results can be interpreted in the context of the updated reference intervals. Glucose 91 70 - 99 mg/dL 07/13/2024 3:15 AM [facility] Blood BLOOD SPECIMEN / Unknown Venipuncture / Unknown 07/13/2024 1:19 AM PU[employer] HOUSE ENGINEER 07/13/2024 1:23 AM [employer] HOUSE ENGINEER Jack Cornejo MD LAB - BLOOD ORDERABLES Final Res ult [facility] [address] [facility] [place], [place] [address] documented in this encounter Visit Diagnoses Diagnosis Nausea and vomiting, unspecified vomiting type documented in this encounter Administered Medications Inactive Administered Medications - up to 3 most recent administrations Medication Order MAR Action Action Date Dose Rate Site ketorolac (TORADOL) injection 15 mg 15 mg, Intravenous, ONCE, On Fri07/13/24 at 0000, For 1 dose, Can cause pain on injection. If ordered intravenously (IV) : administer through a running maintenance fluid over 1 minute followed by a flush. If patient complains of pain on injection, may dilute 15-30 mg in 5 mL and push over 1 to 2 minutes. $Given 07/12/2024 11:51 PM PUMP HOUSE ENGINEER 15 mg lactated ringers BOLUS 1,000 mL Intravenous, 1,000 mL, ONCE, at 1,000 mL/hr, Administer over 1 Hours, On Fri07/13/24 at 0130, For 1 dose $New Bag 07/13/2024 1:08 AM PUMP HOUSE ENGINEER 1,000 mLs 1000 mL/hr lactated ringers BOLUS 500 mL Intravenous, 500 mL, ONCE, at 500 mL/hr, Administer over 1 Hours, On Fri07/13/24 at 0400, For 1 dose $New Bag 07/13/2024 4:28 AM PU[employer] HOUSE ENGINEER 500 mLs 500 mL/hr LORazepam (ATIVAN) injection 1 mg 1 mg, Intravenous, ONCE, On Fri07/12/24 at 2330, For 1 dose, IV Route: Dilute with equal volume NS prior to use. This drug may cause significant respiratory depression. Monitor respiratory status and vital signs carefully for 1 hour after each dose. $Given 07/12/2024 11:30 PM PU[employer] HOUSE ENGINEER 1 mg metoclopramide (REGLAN) injection 10 mg 10 mg, Intravenous, Administer over 2 Minutes, ONCE, On Fri07/13/24 at 0130, For 1 dose, Avoid use if patient has full bowel obstruction or perforation. $Given 07/13/2024 1:07 AM PUMP HOUSE ENGINEER 10 mg OLANZapine (zyPREXA) injection 5 mg 5 mg, Intramuscular, ONCE, On Fri07/12/24 at 2300, For 1 dose, Dissolve the contents of the 10 mg vial using 2.1 mL of Sterile Water for Injection to provide a solution containing 5 mg/mL of olanzapine. Withdraw the ordered dose from vial. Use immediately (within 1 hour) after reconstitution. Discard any unused portion. $Given 07/12/2024 11:51 PM PUMP HOUSE ENGINEER 5 mg OLANZapine (zyPREXA) injection 5 mg 5 mg, Intramuscular, ONCE, On Fri07/13/24 at 0400, For 1 dose, Dissolve the contents of the 10 mg vial using 2.1 mL of Sterile Water for Injection to provide a solution containing 5 mg/mL of olanzapine. Withdraw the ordered dose from vial. Use immediately (within 1 hour) after reconstitution. Discard any unused portion. $Given 07/13/2024 4:29 AM PUMP HOUSE ENGINEER 5 mg ondansetron (ZOFRAN) injection 4 mg 4 mg, Intravenous, ONCE, Administer over 2-5 Minutes, On Fri07/12/24 at 2230, For 1 dose $Given 07/12/2024 11:08 PM PUMP HOUSE ENGINEER 4 mg documented in this encounter Active and Recently Administered Medications Times are shown in PUMP HOUSE ENGINEER. Scheduled Medication Order 07/11/2024 07/12/2024 07/13/2024 ketorolac (TORADOL) injection 15 mg (COMPLETED) 15 mg, Intravenous, ONCE, On Fri07/13/24 at 0000, For 1 dose, Can cause pain on injection. If ordered intravenously (IV) : administer through a running maintenance fluid over 1 minute followed by a flush. If patient complains of pain on injection, may dilute 15-30 mg in 5 mL and push over 1 to 2 minutes. 2351 ($Given - Provider: Caio Vora RN) lactated ringers BOLUS 1,000 mL (COMPLETED) Intravenous, 1,000 mL, ONCE, at 1,000 mL/hr, Administer over 1 Hours, On Fri07/13/24 at 0130, For 1 dose 0108 ($New Bag - Provider: Caio Vora RN)0230 (Stopped - Provider: Caio Vora RN) lactated ringers BOLUS 500 mL (COMPLETED) Intravenous, 500 mL, ONCE, at 500 mL/hr, Administer over 1 Hours, On Fri07/13/24 at 0400, For 1 dose 0428 ($New Bag - Provider: Caio Vora RN)0535 (Stopped - Provider: Caio Vora RN) LORazepam (ATIVAN) injection 1 mg (COMPLETED) 1 mg, Intravenous, ONCE, On Fri07/12/24 at 2330, For 1 dose, IV Route: Dilute with equal volume NS prior to use. This drug may cause significant respiratory depression. Monitor respiratory status and vital signs carefully for 1 hour after each dose. 2330 ($Given - Provider: Caio Vora RN) metoclopramide (REGLAN) injection 10 mg (COMPLETED) 10 mg, Intravenous, Administer over 2 Minutes, ONCE, On Fri07/13/24 at 0130, For 1 dose, Avoid use if patient has full bowel obstruction or perforation. 0107 ($Given - Provider: Caio Vora RN) OLANZapine (zyPREXA) injection 5 mg (COMPLETED) 5 mg, Intramuscular, ONCE, On Fri07/12/24 at 2300, For 1 dose, Dissolve the contents of the 10 mg vial using 2.1 mL of Sterile Water for Injection to provide a solution containing 5 mg/mL of olanzapine. Withdraw the ordered dose from vial. Use immediately (within 1 hour) after reconstitution. Discard any unused portion. 2351 ($Given - Provider: Caio Vora RN) OLANZapine (zyPREXA) injection 5 mg (COMPLETED) 5 mg, Intramuscular, ONCE, On Fri07/13/24 at 0400, For 1 dose, Dissolve the contents of the 10 mg vial using 2.1 mL of Sterile Water for Injection to provide a solution containing 5 mg/mL of olanzapine. Withdraw the ordered dose from vial. Use immediately (within 1 hour) after reconstitution. Discard any unused portion. 0429 ($Given - Provider: Caio Vora RN) ondansetron (ZOFRAN) injection 4 mg (CANCELED) 4 mg, Intravenous, ONCE, Administer over 2-5 Minutes, On Fri07/12/24 at 2230, For 1 dose 2308 ($Given - Provider: Caio Vora RN - Comment: Automatically canceled at discontinue of medication order) documented in this encounter Care Teams Mh Teacher Relationship Specialty Start Date End Date Deepthi Mc [address] [place] [address] PCP - General Physician Treatment Plant Operator 06/15/23 documented as of this encounter
--- OUTSIDE RECORDS SUMMARY | 2024-08-16 17:50 | XMS_ITS | Clinical Summary ---
Author Organization [facility] Address [address] [place] [id number] Care Team Providers Care Paint Laboratory Technician Name Role Phone Jesusita Deepthi Wilkins Primary Care Provider [phone] Allergies Active Allergy Reactions Criticality Noted Date Comments Droperidol Other (See Comments) 08/11/2023 Pt states he gets lock jaw from medication. Haloperidol Shortness Of Breath High 01/19/2022 Other Reaction(s): Extrapyramidal Symptoms, Dystonic reaction, Tightness in airway Medications * This document contains information received from the source organization and may not represent a complete record from that organization. hydrOXYzine (ATARAX) 25 MG tablet Take 25 mg by mouth every 6 hours as needed for anxiety. 1 Active LORazepam (ATIVAN) 0.5 MG tablet Take 0.5 mg by mouth daily as needed for anxiety. 1 Active amphetamine-dextr oamphetamine (ADDERALL) 10 MG tablet Take 10 mg by mouth every evening. 3 Active desvenlafaxine (PRISTIQ) 100 MG 24 hr tablet Take 100 mg by mouth daily. 2 Active lisinopril (ZESTRIL) 10 MG tablet Take 10 mg by mouth daily 2 Active cloNIDine (CATAPRES-TTS1) 0.1 MG/24HR WK patch Place 1 patch onto the skin once a week. Every Friday 3 Active traZODone (DESYREL) 50 MG tablet Take 50 mg by mouth nightly as needed for sleep. 3 Active prochlorperazine (COMPAZINE) [address] 25 mg rectally every 12 hours as needed 2 Active ondansetron (ZOFRAN) 4 MG tablet Take 4 mg by mouth every 8 hours as needed for nausea Active folic acid (FOLVITE) 1 MG tabletIndications :Alcohol dependence with withdrawal with complication (H) Take 1 tablet (1 mg) by mouth daily 4 Active multivitamin w/minerals (THERA-VIT-M) tabletIndications :Alcohol dependence with withdrawal with complication (H) Take 1 tablet by mouth daily 4 Active Acetaminophen 325 MG CAPS Take 650 mg by mouth every 6 hours as needed (pain, fever). Active ramelteon (ROZEREM) 8 MG tablet Take 8 mg by mouth at bedtime. Active amphetamine-dextr oamphetamine (ADDERALL XR) 20 MG 24 hr capsule Take 20 mg by mouth every morning. Active gabapentin (NEURONTIN) 600 MG tablet Take 600 mg by mouth 3 times daily. Active pantoprazole (PROTONIX) 40 MG EC tablet Take 40 mg by mouth 2 times daily. Active Active Problems Problem Noted Date Diagnosed Date Tachycardia, unspecified 06/25/2024 Nausea and vomiting, unspecified vomiting type 1 08/24/2023 Ulcer of esophagus without bleeding 06/17/2024 Upper GI bleed 05/29/2024 Alcohol withdrawal seizure without complication 05/29/2024 Alcohol dependence with withdrawal with complica tion 06/15/2023 Somatoform disorder 07/13/2020 Recurrent major depressive disorder 07/11/2020 Gastroesophageal reflux disease 07/07/2020 Hypokalemia 07/07/2020 Hyponatremia 07/07/2020 Primary hypertension 07/07/2020 Nicotine dependence 03/26/2020 Alcohol dependence 03/25/2020 Overview (07/15/2021): Patient with history of alcohol abuse. No history of withdrawal seizures or withdrawal complications. [facility] admission on 03/26/20 for alcohol withdrawal and discharged on 03/28/20. Patient is interested in quitting. Has previously tried clonidine and naltrexone. Patient with history of alcohol abuse. No history of withdrawal seizures or withdrawal complications. [facility] admission on 03/26/20 for alcohol withdrawal and discharged on 03/28/20. Patient is interested in quitting. Has previously tried clonidine and naltrexone. Patient with history of alcohol abuse. No history of withdrawal seizures or withdrawal complications. [facility] admission on 03/26/20 for alcohol withdrawal and discharged on 03/28/20. Patient is interested in quitting. Has previously tried clonidine and naltrexone. Cyclical vomiting 04/04/2016 Social anxiety disorder 02/26/2016 PTSD (post-traumatic stress disorder) 05/16/2014 Overview (07/15/2021): Under the care of Dr. Rafat Falcon for mental health care. [facility] . Initial intake 12/10/12 Previous Medication Trials: Paxil- caused numbness Buspar- ineffective in past- though was restarted Strattera- 2012, restarted 02/2015 Fluoxetine- 2012- decreased libido Wellbutrin- 2012- decreased appetite ]/ weight loss Mirtazapine- 2013- increase in fatigue Zyprexa- started 11/01- initially caused grogginess and decreased focus; later caused weight gain- was tapered off of this fall of 2014 Seroquel- 04/03 Inderal- 05/03 Past Psychiatric Hospitalizations: multiple ER visit for cyclic vomiting; hospitalization at [facility] 05/03 (72 hr hold); 12/01 at [facility] History of Suicide Attempts: no Under the care of Dr. Rafat Falcon for mental health care. [facility] . Initial intake 12/10/12 Previous Medication Trials: Paxil- caused numbness Buspar- ineffective in past- though was restarted Strattera- 2012, restarted 02/2015 Fluoxetine- 2012- decreased libido Wellbutrin- 2012- decreased appetite ]/ weight loss Mirtazapine- 2013- increase in fatigue Zyprexa- started 11/01- initially caused grogginess and decreased focus; later caused weight gain- was tapered off of this fall of 2014 Seroquel- 04/03 Inderal- 05/03 Past Psychiatric Hospitalizations: multiple ER visit for cyclic vomiting; hospitalization at [facility] 05/03 (72 hr hold); 12/01 at [facility] History of Suicide Attempts: no Under the care of Dr. Rafat Falcon for mental health care. [facility] . Initial intake 12/10/12 Previous Medication Trials: Paxil- caused numbness Buspar- ineffective in past- though was restarted Strattera- 2012, restarted 02/2015 Fluoxetine- 2012- decreased libido Wellbutrin- 2012- decreased appetite ]/ weight loss Mirtazapine- 2013- increase in fatigue Zyprexa- started 11/01- initially caused grogginess and decreased focus; later caused weight gain- was tapered off of this fall Seroquel04/03 Inderal05/03 Past Psychiatric Hospitalizations: multiple ER visit for cyclic vomiting; hospitalization at [facility] 05/03 (72 hr hold); 12/01 at [facility] History of Suicide Attempts: no Under the care of Dr. Rafat Falcon for mental health care. [facility] . Initial intake 12/10/12 Previous Medication Trials: Paxil- caused numbness Buspar- ineffective in past- though was restarted Strattera- 2012, restarted 02/2015 Fluoxetine- 2012- decreased libido Wellbutrin- 2012- decreased appetite ]/ weight loss Mirtazapine- 2013- increase in fatigue Zyprexa- started 11/01- initially caused grogginess and decreased focus; later caused weight gain- was tapered off of this fall of 2014 Seroquel- 04/03 Inderal- 05/03 Past Psychiatric Hospitalizations: multiple ER visit for cyclic vomiting; hospitalization at [facility] 05/03 (72 hr hold); 12/01 at [facility] History of Suicide Attempts: no Under the care of Dr. Rafat Falcon for mental health care. [facility] . Initial intake 12/10/12 Previous Medication Trials: Paxil- caused numbness Buspar- ineffective in past- though was restarted Strattera- 2012, restarted 02/2015 Fluoxetine- 2012- decreased libido Wellbutrin- 2012- decreased appetite ]/ weight loss Mirtazapine- 2013- increase in fatigue Zyprexa- started 11/01- initially caused grogginess and decreased focus; later caused weight gain- was tapered off of this fall of 2014 Seroquel- 04/03 Inderal- 05/03 Past Psychiatric Hospitalizations: multiple ER visit for cyclic vomiting; hospitalization at [facility] 05/03 (72 hr hold); 12/01 at [facility] History of Suicide Attempts: no Under the care of Dr. Rafat Falcon for mental health care. [facility] . Initial intake 12/10/12 Previous Medication Trials: Paxil- caused numbness Buspar- ineffective in past- though was restarted 2012, restarted 02/2015 Fluoxetine- 2012- decreased libido Wellbutrin- 2012- decreased appetite ]/ weight loss Mirtazapine- 2013- increase in fatigue Zyprexa- started 11/01- initially caused grogginess and decreased focus; later caused weight gain- was tapered off of this fall of 2014 Seroquel- 04/03 Inderal- 05/03 Past Psychiatric Hospitalizations: multiple ER visit for cyclic vomiting; hospitalization at [facility] 05/03 (72 hr hold); 12/01 at [facility] History of Suicide Attempts: no Under the care of Dr. Rafat Falcon for mental health care. [facility] . Initial intake 12/10/12 Previous Medication Trials: Paxil- caused numbness Buspar- ineffective in past- though was restarted 2012, restarted 02/2015 Fluoxetine- 2012- decreased libido Wellbutrin- 2012- decreased appetite ]/ weight loss Mirtazapine- 2013- increase in fatigue Zyprexa- started 11/01- initially caused grogginess and decreased focus; later caused weight gain- was tapered off of this fall of 2014 Seroquel- 04/03 Inderal- 05/03 Past Psychiatric Hospitalizations: multiple ER visit for cyclic vomiting; hospitalization at [facility] 05/03 (72 hr hold); 12/01 at [facility] History of Suicide Attempts: no Cannabis dependence, continuous abuse 11/05/2013 ADD (attention deficit disorder) 02/04/2013 Vitamin D deficiency 07/30/2011 Asthma 12/11/2007 Overview (07/15/2021): Patient with childhood asthma, not currently requiring any inhalers or medication. Patient with childhood asthma, not currently requiring any inhalers or medication. Patient with childhood asthma, not currently requiring any inhalers or medication. Patient with childhood asthma, not currently requiring any inhalers or medication. Resolved Problems Problem Noted Date Diagnosed Date Resolved Date Alcohol withdrawal, with uns pecified complication 06/14/2024 06/17/2024 Hematemesis with nausea 06/14/202405/22 Encounters Date Type Department Care Team Description 07/12/2024 10:10 PM RN OPERATING ROOM - 07/13/2024 6:40 AM [facility] Emergency Department [facility] [place] [address] Jack Cornejo MD Mott, Sarah E, MD Nausea and vomiting, unspecified vomiting type Discharge Disposition: Home or Self Care 07/12/2024 Documentation Only [facility] [address] [facility] [address] [place] [address] Christine Ugarte Advance Care Planning 07/11/2024 3:18 PM RN OPERATING ROOM - 07/11/2024 6:55 PM RN OPERATING ROOM Emergency [facility] Emergency Department [address] [place] [phone] Clinton Franklin DO Cyclic vomiting syndrome Discharge Disposition: Home or Self Care 07/11/2024 Travel 07/05/2024 Documentation Only [facility] [address] [facility] [address] [place] [address] Christine Ugarte Advance Care Planning 06/27/2024 8:29 AM RN OPERATING ROOM - 06/27/2024 11:56 AM RN OPERATING ROOM Emergency [facility] Emergency Department [address] [place] [phone] Ronda Ugarte MD Anxiety reaction Discharge Disposition: Home or Self Care 06/27/2024 Travel 06/23/2024 3:12 PM RN OPERATING ROOM - 06/26/2024 10:15 AM RN OPERATING ROOM Emergency [facility] [address] [place] [phone] Yamil Espinosa MD Kelly, Ryan, MD Saadaeijahromi, Hannaneh, MD Tachycardia, unspecified (Primary Dx); Hyponatremia; Nausea and vomiting, unspecified vomiting type Discharge Disposition: [facility]RT[facility] - Intensive Residential Treatment Program 06/23/2024 Travel 06/14/2024 8:09 PM RN OPERATING ROOM - 06/17/2024 12:53 PM RN OPERATING ROOM Hospital Encounter [facility] Med Surg [address] [place] [phone] Clinton Smith MD Mangaudis, Rachael, MD Maddury, Sai Priya, MD Tremor (Primary Dx); Alcohol withdrawal, with unspecified complication (H); Hematemesis with nausea; Tachycardia, unspecified; Upper GI bleed; Gastroesophageal reflux disease with esophagitis without hemorrhage Discharge Disposition: Home or Self Care 06/14/2024 Travel 06/01/2024 11:29 AM RN OPERATING ROOM Anesthesia Event [facility] Endoscopy [address] [place] [address] Guzman Randall MD Kadiyala, Mamatha, MD 06/01/2024 11:00 AM RN OPERATING ROOM - 06/01/2024 11:35 AM RN OPERATING ROOM Surgery [facility] Endoscopy [address] [place] [phone] Chas Perez MD Esophagoscopy, gastroscopy, duodenoscopy (EGD), combined 05/29/2024 5:40 AM RN OPERATING ROOM - 06/01/2024 5:10 PM RN OPERATING ROOM Hospital Encounter [facility] [address] [place] [address] [place] [address] Pankaj Sidhu MD Jones, MD Christy Thomas James M, MD Upper GI bleed; Alcohol withdrawal seizure without complication (H) Discharge Disposition: Home or Self Care 05/29/2024 Travel from Last 3 Months Social History Tobacco Use Types Packs/Day Years [...] Answer Date Recorded Do you have housing? (Housin g is defined as stable permanent housing and does not include staying ouside in a car, in a tent, in an abandoned building, in an overnight custodial, or couch-surfing.) Yes 06/23/2024 Are you worried [...] on file Sexual Orientation Not on file Last Filed Vital Signs Vital Sign Reading Time Taken Comments Blood Pressure 122/60 07/13/2024 6:16 AM RN OPERATING ROOM Pulse 117 07/12/2024 10:01 PM RN OPERATING ROOM Temperature 36.7 C (98.1 F) 07/12/2024 10:01 PM RN OPERATING ROOM Respiratory Rate 30 07/12/2024 10:01 PM RN OPERATING ROOM Oxygen Saturation 100% 07/12/2024 10:01 PM RN OPERATING ROOM Inhaled Oxygen Concentration - - Weight 98.9 kg (218 lb) 07/12/2024 10:01 PM RN OPERATING ROOM Height 182.9 cm (6') 07/11/2024 3:12 PM RN OPERATING ROOM Body Mass Index 29.57 07/11/2024 3:12 PM RN OPERATING ROOM Plan of Treatment Health Maintenance Due Date Last Done Comments ANNUAL REVIEW OF HM ORDERS 1995 ASTHMA ACTION PLAN 1995 ASTHMA CONTROL TEST 1995 DEPRESSION ACTION PLAN 1995 PHQ-9 1995 YEARLY PREVENTIVE VISIT 10/02/1998 HIV SCREENING 10/02/2010 HEPATITIS C SCREENING 10/02/2013 Pneumococcal Vaccine: Pediatrics (0 to 5 Years) and At-Risk Patients (6 to 49 Years) (1 of 2 - PCV) 10/02/2014 COVID-19 Vaccine ( season) 2024 11/28/2021, 11/29/2020, 11/08/2020 INFLUENZA VACCINE (#1) 2024 05/17/2022, 2019 BMP 07/13/2025 07/13/2024, 06/21, 06/27/2024, Additional history exists ADVANCE CARE PLANNING 07/12/2029 07/12/2024, 024 DTAP/TDAP/TD IMMUNIZATION (7 - Td or Tdap) 03/20/2030 03/20/2020, 03/20/2020, 01/27/2008, Additional history exists RSV VACCINE (1 - 1-dose 75+ series) 10/02/2070 HEPATITIS B IMMUNIZATION Completed 997, 08/16/1996, 04/02/1996, Additional history exists HPV IMMUNIZATION Aged Out No longer e ligible based on patient's age to complete this topic MENINGITIS IMMUNIZATION Aged Out No l onger eligible based on patient's age to complete this topic RSV MONOCLONAL ANTIBODY Aged Out No l onger eligible based on patient's age to complete this topic Procedures Procedure Name Priority Date/Time Associated Diagnosis Comments ROUTINE UA WITH MICROSCOPIC REFLEX TO CULTURE STAT 07/13/2024 4:26 AM RN OPERATING ROOM CBC WITH PLATELETS & DIFFERENTIAL STAT 07/13/2024 1:19 AM RN OPERATING ROOM CBC WITH PLATELETS AND DIFFERENTIAL STAT 07/13/2024 1:19 AM RN OPERATING ROOM LIPASE STAT 07/13/2024 1:19 AM RN OPERATING ROOM HEPATIC FUNCTION PANEL STAT 1:19 AM RN OPERATING ROOM BASIC METABOLIC PANEL STAT 07/13/2024 1:19 AM RN OPERATING ROOM CBC WITH PLATELETS & DIFFERENTIAL STAT 07/11/2024 3:25 PM RN OPERATING ROOM RBC AND PLATELET MORPHOLOGY STAT 07/11/2024 3:25 PM RN OPERATING ROOM CBC WITH PLATELETS AND DIFFERENTIAL STAT 07/11/2024 3:25 PM RN OPERATING ROOM LIPASE STAT 07/11/2024 3:25 PM RN OPERATING ROOM HEPATIC FUNCTION PANEL STAT 3:25 PM RN OPERATING ROOM BASIC METABOLIC PANEL STAT 07/11/2024 3:25 PM RN OPERATING ROOM EXTRA PURPLE TOP TUBE STAT 07/11/2024 3:25 PM RN OPERATING ROOM EXTRA GREEN TOP (LITHIUM HEPARIN) TUBE STAT 07/11/2024 3:25 PM RN OPERATING ROOM EXTRA TUBE STAT 07/11/2024 3:25 PM RN OPERATING ROOM CBC WITH PLATELETS & DIFFERENTIAL STAT 06/27/2024 8:36 AM RN OPERATING ROOM MAGNESIUM STAT 06/27/2024 8:36 AM RN OPERATING ROOM CBC WITH PLATELETS AND DIFFERENTIAL STAT 06/27/2024 8:36 AM RN OPERATING ROOM ETHYL ALCOHOL LEVEL STAT 06/27/2024 8 :36 AM RN OPERATING ROOM LIPASE STAT 06/27/2024 8:36 AM RN OPERATING ROOM HEPATIC FUNCTION PANEL STAT 8:36 AM RN OPERATING ROOM BASIC METABOLIC PANEL STAT 06/27/2024 8:36 AM RN OPERATING ROOM EXTRA PURPLE TOP TUBE STAT 06/27/2024 8:36 AM RN OPERATING ROOM EXTRA GREEN TOP (LITHIUM HEPARIN) TUBE STAT 06/27/2024 8:36 AM RN OPERATING ROOM EXTRA TUBE STAT 06/27/2024 8:36 AM RN OPERATING ROOM EXTRA PURPLE TOP TUBE Routine 06/25/2024 8:40 AM RN OPERATING ROOM EXTRA TUBE Routine 06/25/2024 8:40 AM RN OPERATING ROOM BASIC METABOLIC PANEL Routine 06/25/2024 8:40 AM RN OPERATING ROOM DRUG CONFIRMATION PANEL URINE WITH CREAT STAT 06/24/2024 5:29 PM RN OPERATING ROOM URINE CREATININE FOR DRUG SCREEN PANEL STAT 06/24/2024 5:29 PM RN OPERATING ROOM URINE DRUG CONFIRMATION PANEL STAT 06/24/2024 5:29 PM RN OPERATING ROOM URINE DRUG SCREEN STAT 06/24/2024 5:2 8 PM RN OPERATING ROOM URINE CREATININE FOR DRUG SCREEN PANEL STAT 06/24/2024 5:28 PM RN OPERATING ROOM THC CONFIRMATION QUANTITATIVE URINE STAT 06/24/2024 5:28 PM RN OPERATING ROOM BENZODIAZEPINES, URINE, QUANTITATIVE STAT 06/24/2024 5:28 PM RN OPERATING ROOM URINE DRUG SCREEN PANEL STAT 06/24/20 5:28 PM RN OPERATING ROOM PHOSPHATIDYLETHANOL (PETH), WHOLE BLOOD Routine 06/24/2024 8:14 AM RN OPERATING ROOM CBC WITH PLATELETS Routine 06/24/2024 8: 14 AM RN OPERATING ROOM COMPREHENSIVE METABOLIC PANEL Routine 06/24/2024 8:14 AM RN OPERATING ROOM EXTRA PURPLE TOP TUBE STAT 06/23/2024 6:19 PM RN OPERATING ROOM EXTRA TUBE STAT 06/23/2024 6:19 PM RN OPERATING ROOM LACTIC ACID WHOLE BLOOD STAT 06/23/20 24 6:19 PM RN OPERATING ROOM ABO/RH TYPE AND SCREEN STAT 4 3:49 PM RN OPERATING ROOM TYPE AND SCREEN, ADULT STAT 3:49 PM RN OPERATING ROOM LACTIC ACID WHOLE BLOOD WITH 1X REPEAT IN 2 HR WHEN >2 STAT 06/23/2024 3:49 PM RN OPERATING ROOM EKG 12-LEAD, TRACING ONLY STAT 2023 3:46 PM RN OPERATING ROOM CBC WITH PLATELETS & DIFFERENTIAL STAT 06/23/2024 3:42 PM RN OPERATING ROOM PHOSPHORUS Add-On 06/23/2024 3:42 PM RN OPERATING ROOM MAGNESIUM Add-On 06/23/2024 3:42 PM RN OPERATING ROOM PHOSPHORUS STAT 06/23/2024 3:42 PM RN OPERATING ROOM CBC WITH PLATELETS AND DIFFERENTIAL STAT 06/23/2024 3:42 PM RN OPERATING ROOM MAGNESIUM STAT 06/23/2024 3:42 PM RN OPERATING ROOM INR STAT 06/23/2024 3:42 PM RN OPERATING ROOM COMPREHENSIVE METABOLIC PANEL STAT 06/23/2024 3:42 PM RN OPERATING ROOM ETHYL ALCOHOL LEVEL STAT 06/23/2024 3 :42 PM RN OPERATING ROOM EXTRA PURPLE TOP TUBE STAT 06/23/2024 3:42 PM RN OPERATING ROOM EXTRA GREEN TOP (LITHIUM HEPARIN) TUBE STAT 06/23/2024 3:42 PM RN OPERATING ROOM EXTRA RED TOP TUBE STAT 06/23/2024 3: 42 PM RN OPERATING ROOM EXTRA BLUE TOP TUBE STAT 06/23/2024 3 :42 PM RN OPERATING ROOM EXTRA TUBE STAT 06/23/2024 3:42 PM RN OPERATING ROOM CBC WITH PLATELETS & DIFFERENTIAL Routine 06/17/2024 6:35 AM RN OPERATING ROOM CBC WITH PLATELETS AND DIFFERENTIAL Routine 06/17/2024 6:35 AM RN OPERATING ROOM PHOSPHORUS Routine 06/17/2024 6:35 AM RN OPERATING ROOM MAGNESIUM Routine 06/17/2024 6:35 AM RN OPERATING ROOM COMPREHENSIVE METABOLIC PANEL Routine 06/17/2024 6:35 AM RN OPERATING ROOM POTASSIUM Timed 06/16/2024 11:47 PM RN OPERATING ROOM PHOSPHORUS Routine 06/16/2024 1:14 PM RN OPERATING ROOM POTASSIUM Timed 06/16/2024 1:14 PM RN OPERATING ROOM CBC WITH PLATELETS & DIFFERENTIAL Routine 06/16/2024 7:52 AM RN OPERATING ROOM CBC WITH PLATELETS AND DIFFERENTIAL Routine 06/16/2024 7:52 AM RN OPERATING ROOM COMPREHENSIVE METABOLIC PANEL Routine 06/16/2024 7:52 AM RN OPERATING ROOM PHOSPHORUS Routine 06/16/2024 2:24 AM RN OPERATING ROOM MAGNESIUM Routine 06/16/2024 2:24 AM RN OPERATING ROOM POTASSIUM Timed 06/16/2024 2:24 AM RN OPERATING ROOM POTASSIUM Timed 06/16/2024 1:35 AM RN OPERATING ROOM POTASSIUM Routine 06/15/2024 5:38 PM RN OPERATING ROOM TROPONIN T, HIGH SENSITIVITY Timed 06/15/2024 3:43 PM RN OPERATING ROOM ROUTINE UA WITH MICROSCOPIC REFLEX TO CULTURE STAT 06/15/2024 12:36 PM RN OPERATING ROOM EXTRA PURPLE TOP TUBE Routine 06/15/2024 11:07 AM RN OPERATING ROOM EXTRA TUBE Routine 06/15/2024 11:07 AM RN OPERATING ROOM TROPONIN T, HIGH SENSITIVITY STAT 06/15/2024 11:07 AM RN OPERATING ROOM POTASSIUM Timed 06/15/2024 11:07 AM RN OPERATING ROOM EKG 12-LEAD, TRACING ONLY STAT 2023 11:00 AM RN OPERATING ROOM CBC WITH PLATELETS & DIFFERENTIAL STAT 06/15/2024 10:08 AM RN OPERATING ROOM EXTRA GREEN TOP (LITHIUM HEPARIN) TUBE Routine 06/15/2024 10:08 AM RN OPERATING ROOM EXTRA TUBE Routine 06/15/2024 10:08 AM RN OPERATING ROOM CBC WITH PLATELETS AND DIFFERENTIAL STAT 06/15/2024 10:08 AM RN OPERATING ROOM POTASSIUM Routine 06/15/2024 7:17 AM RN OPERATING ROOM INR Timed 06/15/2024 3:56 AM RN OPERATING ROOM PHOSPHORUS Timed 06/15/2024 3:56 AM RN OPERATING ROOM MAGNESIUM Timed 06/15/2024 3:56 AM RN OPERATING ROOM COMPREHENSIVE METABOLIC PANEL Timed 06/15/2024 3:56 AM RN OPERATING ROOM PHOSPHORUS Add-On 06/14/2024 9:13 PM RN OPERATING ROOM ETHYL ALCOHOL LEVEL STAT 06/14/2024 9 :13 PM RN OPERATING ROOM EKG 12-LEAD, TRACING ONLY STAT 2023 8:56 PM RN OPERATING ROOM ABO/RH TYPE AND SCREEN STAT 8:24 PM RN OPERATING ROOM CBC WITH PLATELETS & DIFFERENTIAL STAT 06/14/2024 8:24 PM RN OPERATING ROOM TYPE AND SCREEN, ADULT STAT 8:24 PM RN OPERATING ROOM MAGNESIUM STAT 06/14/2024 8:24 PM RN OPERATING ROOM LIPASE STAT 06/14/2024 8:24 PM RN OPERATING ROOM EXTRA BLOOD BANK PURPLE TOP TUBE STAT 06/14/2024 8:24 PM RN OPERATING ROOM CBC WITH PLATELETS AND DIFFERENTIAL STAT 06/14/2024 8:24 PM RN OPERATING ROOM ETHYL ALCOHOL LEVEL STAT 06/14/2024 8 :24 PM RN OPERATING ROOM EXTRA TUBE STAT 06/14/2024 8:24 PM RN OPERATING ROOM COMPREHENSIVE METABOLIC PANEL STAT 06/14/2024 8:24 PM RN OPERATING ROOM HEMOGLOBIN Timed 06/01/2024 1:49 PM RN OPERATING ROOM UGI ENDOSCOPY DIAG W OR W/O BRUSH/WASH 06/01/2024 11:30 AM RN OPERATING ROOM Hematemesis UPPER GI ENDOSCOPY Routine 06/01/2024 11:25 AM RN OPERATING ROOM PHOSPHORUS Add-On 06/01/2024 5:41 AM RN OPERATING ROOM HEMOGLOBIN Timed 06/01/2024 5:41 AM RN OPERATING ROOM MAGNESIUM Routine 06/01/2024 5:41 AM RN OPERATING ROOM CBC WITH PLATELETS Routine 06/01/2024 5: 41 AM RN OPERATING ROOM BASIC METABOLIC PANEL Routine 06/01/2024 5:41 AM RN OPERATING ROOM HEMOGLOBIN Timed 05/31/2024 11:51 PM RN OPERATING ROOM HEMOGLOBIN Timed 05/31/2024 5:54 PM RN OPERATING ROOM PHOSPHORUS Timed 05/31/2024 5:50 PM RN OPERATING ROOM HEMOGLOBIN Timed 05/31/2024 2:39 PM RN OPERATING ROOM HEPATIC FUNCTION PANEL Add-On 5:35 AM RN OPERATING ROOM CBC WITH PLATELETS Routine 05/31/2024 5: 35 AM RN OPERATING ROOM BASIC METABOLIC PANEL Routine 05/31/2024 5:35 AM RN OPERATING ROOM MAGNESIUM Routine 05/31/2024 5:35 AM RN OPERATING ROOM PHOSPHORUS Routine 05/31/2024 5:35 AM RN OPERATING ROOM HEMOGLOBIN Timed 05/30/2024 10:41 PM RN OPERATING ROOM MAGNESIUM Routine 05/30/2024 10:41 PM RN OPERATING ROOM POTASSIUM Timed 05/30/2024 10:41 PM RN OPERATING ROOM GLUCOSE BY METER Routine 05/30/2024 10:40 PM RN OPERATING ROOM HEMOGLOBIN Timed 05/30/2024 8:19 PM RN OPERATING ROOM TRANSFUSE RED BLOOD CELLS (UNIT) STAT 05/30/2024 4:17 PM RN OPERATING ROOM PREPARE RED BLOOD CELLS (UNIT) STAT 05/30/2024 3:40 PM RN OPERATING ROOM PREPARE RED BLOOD CELLS (UNIT) Routine 05/30/2024 2:27 PM RN OPERATING ROOM PREPARE RED BLOOD CELLS (UNIT) STAT 05/30/2024 1:57 PM RN OPERATING ROOM MAGNESIUM Routine 05/30/2024 12:02 PM RN OPERATING ROOM POTASSIUM Timed 05/30/2024 12:02 PM RN OPERATING ROOM HEMOGLOBIN Timed 05/30/2024 12:02 PM RN OPERATING ROOM BASIC METABOLIC PANEL Timed 05/30/2024 12:02 PM RN OPERATING ROOM PICC TRIPLE LUMEN PLACEMENT Routine 05/30/2024 10:44 AM RN OPERATING ROOM CBC WITH PLATELETS & DIFFERENTIAL STAT 05/30/2024 5:50 AM RN OPERATING ROOM CBC WITH PLATELETS AND DIFFERENTIAL STAT 05/30/2024 5:50 AM RN OPERATING ROOM HEMOGLOBIN Timed 05/30/2024 5:50 AM RN OPERATING ROOM BASIC METABOLIC PANEL Timed 05/30/2024 5:50 AM RN OPERATING ROOM HEMOGLOBIN Timed 05/29/2024 11:55 PM RN OPERATING ROOM BASIC METABOLIC PANEL Timed 05/29/2024 11:55 PM RN OPERATING ROOM OSMOLALITY Timed 05/29/2024 5:51 PM RN OPERATING ROOM HEMOGLOBIN Timed 05/29/2024 5:51 PM RN OPERATING ROOM BASIC METABOLIC PANEL Timed 05/29/2024 5:51 PM RN OPERATING ROOM LACTIC ACID WHOLE BLOOD STAT 05/29/20 4:41 PM RN OPERATING ROOM HEMOGLOBIN STAT 05/29/2024 3:00 PM RN OPERATING ROOM HEMOGLOBIN STAT 05/29/2024 11:55 AM RN OPERATING ROOM BASIC METABOLIC PANEL STAT 05/29/2024 11:55 AM RN OPERATING ROOM MAGNESIUM STAT 05/29/2024 11:55 AM RN OPERATING ROOM URINE DRUG SCREEN STAT 05/29/2024 9:3 5 AM RN OPERATING ROOM FIBRINOGEN ACTIVITY STAT Add-on 05/29/2024 9 :35 AM RN OPERATING ROOM OSMOLALITY, RANDOM URINE Add-On 024 9:35 AM RN OPERATING ROOM SODIUM RANDOM URINE Add-On 05/29/2024 9 :35 AM RN OPERATING ROOM URINE DRUG SCREEN PANEL STAT 05/29/20 24 9:35 AM RN OPERATING ROOM INR STAT 05/29/2024 9:35 AM RN OPERATING ROOM EKG 12-LEAD, TRACING ONLY STAT 2023 7:13 AM RN OPERATING ROOM ISTAT GASES ELECTROLYTES ICA GLUCOSE VENOUS POCT STAT 05/29/2024 7:11 AM RN OPERATING ROOM ABO/RH TYPE AND SCREEN STAT 4 7:09 AM RN OPERATING ROOM TYPE AND SCREEN, ADULT STAT 7:09 AM RN OPERATING ROOM CBC WITH PLATELETS & DIFFERENTIAL STAT 05/29/2024 6:59 AM RN OPERATING ROOM PHOSPHORUS STAT 05/29/2024 6:59 AM RN OPERATING ROOM RBC AND PLATELET MORPHOLOGY STAT 05/29/2024 6:59 AM RN OPERATING ROOM CBC WITH PLATELETS AND DIFFERENTIAL STAT 05/29/2024 6:59 AM RN OPERATING ROOM MAGNESIUM STAT 05/29/2024 6:59 AM RN OPERATING ROOM ETHYL ALCOHOL LEVEL STAT 05/29/2024 6 :59 AM RN OPERATING ROOM LIPASE STAT 05/29/2024 6:59 AM RN OPERATING ROOM COMPREHENSIVE METABOLIC PANEL STAT 05/29/2024 6:59 AM RN OPERATING ROOM ALCOHOL BREATH TEST POCT STAT 024 5:48 AM RN OPERATING ROOM from Last 3 Months Results * (ABNORMAL) UA with Microscopic reflex to Culture (07/13/2024 4:26 AM RN OPERATING ROOM) Only the most recent of2 resultswithin the time period is included. Color Urine Light Yellow Colorless, Straw, Light Yellow, Yellow 07/13/2024 4:49 AM RN OPERATING ROOM [facility] Appearance Urine Clear Clear 07/13/20 4:49 AM RN OPERATING ROOM [facility] Glucose Urine Negative Negative mg/dL 07/13/2024 4:49 AM RN OPERATING ROOM [facility] Bilirubin Urine Negative Negative 4:49 AM RN OPERATING ROOM [facility] Ketones Urine 40(A) Negative mg/dL 07/13/2024 4:49 AM RN OPERATING ROOM [facility] Specific [place] Urine 1.017 1.001 - 1.030 07/13/2024 4:49 AM RN OPERATING ROOM [facility] Blood Urine Negative Negative 07/13/2024 4:49 AM RN OPERATING ROOM [facility] pH Urine 6.0 5.0 - 7.0 07/13/2024 4:49 AM RN OPERATING ROOM [facility] Protein Albumin Urine Negative Negative mg/dL 07/13/2024 4:49 AM RN OPERATING ROOM [facility] Urobilinogen Urine <2.0 <2.0 mg/dL 07/13/2024 4:49 AM RN OPERATING ROOM [facility] Nitrite Urine Negative Negative 07/13/2024 4:49 AM RN OPERATING ROOM [facility] Leukocyte Esterase Urine Negative Negative 07/13/2024 4:49 AM RN OPERATING ROOM [facility] RBC Urine 1 <=2 /HPF 07/13/2024 4:49 AM RN OPERATING ROOM [facility] WBC Urine 1 <=5 /HPF 07/13/2024 4:49 AM RN OPERATING ROOM [facility] Urine URINE SPECIMEN OBTAINED BY CLEAN CATCH PROCEDURE / Unknown Non-blood Collection / Unknown 07/13/2024 4:26 AM RN OPERATING ROOM 07/13/2024 4:40 AM RN OPERATING ROOM Narrative [facility] - 07/13/2024 4:49 AM RN OPERATING ROOM Urine Culture not indicated us Jack Cornejo MD LAB - URINE ORDERABLES Final Res ult [facility] [address] [place] [address], [facility] * (ABNORMAL) CBC with platelets and differential (07/13/2024 1:19 AM RN OPERATING ROOM) Only the most recent of10 resultswithin the time period is included. WBC Count 13.1(H) 4.0 - 11.0 10e3/uL 07/13/2024 1:27 AM RN OPERATING ROOM [facility] RBC Count 4.08(L) 4.40 - 5.90 10e6/uL 07/13/2024 1:27 AM RN OPERATING ROOM [facility] Hemoglobin 10.2(L) 13.3 - 17.7 g/dL 07/13/2024 1:27 AM RN OPERATING ROOM [facility] Hematocrit 30.8(L) 40.0 - 53.0 % 07/13/2024 1:27 AM RN OPERATING ROOM [facility] MCV 76(L) 78 - 100 fL 07/13/2024 1:27 AM RN OPERATING ROOM [facility] MCH 25.0(L) 26.5 - 33.0 pg 07/13/2024 1:27 AM RN OPERATING ROOM [facility] MCHC 33.1 31.5 - 36.5 g/dL 07/13/2024 1:27 AM RN OPERATING ROOM [facility] RDW 17.6(H) 10.0 - 15.0 % 07/13/2024 1:27 AM RN OPERATING ROOM [facility] Platelet Count 462(H) 150 - 450 10e3/uL 07/13/2024 1:27 AM RN OPERATING ROOM [facility] % Neutrophils 73 % 07/13/2024 1:27 AM RN OPERATING ROOM [facility] % Lymphocytes 16 % 07/13/2024 1:27 AM RN OPERATING ROOM [facility] % Monocytes 11 % 07/13/2024 1:27 AM RN OPERATING ROOM [facility] % Eosinophils 0 % 07/13/2024 1:27 AM RN OPERATING ROOM [facility] % Basophils 0 % 07/13/2024 1:27 AM RN OPERATING ROOM [facility] % Immature Granulocytes 0 % 07/13/2024 1:27 AM RN OPERATING ROOM [facility] NRBCs per 100 WBC 0 <1 /100 024 1:27 AM RN OPERATING ROOM [facility] Absolute Neutrophils 9.5(H) 1.6 - 8.3 10e3/uL 07/13/2024 1:27 AM RN OPERATING ROOM [facility] Absolute Lymphocytes 2.1 0.8 - 5.3 10e3/uL 07/13/2024 1:27 AM RN OPERATING ROOM [facility] Absolute Monocytes 1.4(H) 0.0 - 1.3 10e3/uL 07/13/2024 1:27 AM RN OPERATING ROOM [facility] Absolute Eosinophils 0.1 0.0 - 0.7 10e3/uL 07/13/2024 1:27 AM RN OPERATING ROOM [facility] Absolute Basophils 0.0 0.0 - 0.2 10e3/uL 07/13/2024 1:27 AM RN OPERATING ROOM [facility] Absolute Immature Granulocytes 0.1 <=0.4 10e3/uL 07/13/2024 1:27 AM RN OPERATING ROOM [facility] Absolute NRBCs 0.0 10e3/uL 07/13/2024 1:27 AM RN OPERATING ROOM [facility] Blood BLOOD SPECIMEN / Unknown Venipuncture / Unknown 07/13/2024 1:19 AM RN OPERATING ROOM 07/13/2024 1:23 AM RN OPERATING ROOM us Jack Cornejo MD LAB - BLOOD ORDERABLES Final Res ult [facility] [address] [place] [address], [facility] * Lipase (07/13/2024 1:19 AM RN OPERATING ROOM) Only the most recent of5 resultswithin the time period is included. Lipase 27 13 - 60 U/L 07/13/2024 3:10 AM [facility] Blood BLOOD SPECIMEN / Unknown Venipuncture / Unknown 07/13/2024 1:19 AM RN OPERATING ROOM 07/13/2024 1:23 AM RN OPERATING ROOM us Jack Cornejo MD LAB - BLOOD ORDERABLES Final Res ult Performing Organization Address City/[facility]/ZIP Co de Phone Number [facility] [address] [place] [address], [facility] * Hepatic function panel (07/13/2024 1:19 AM RN OPERATING ROOM) Only the most recent of4 resultswithin the time period is included. Protein Total 6.8 6.4 - 8.3 g/dL 07/13/2024 3:16 AM [facility] Albumin 4.4 3.5 - 5.2 g/dL 07/13/2024 3:16 AM [facility] Bilirubin Total 0.9 <=1.2 mg/dL 07/13/2024 3:16 AM [facility] Alkaline Phosphatase 78 40 - 150 U/L 07/13/2024 3:16 AM [facility] AST 07/13/2024 3:16 AM [facility] Comment:Unsatisfactory speci men - lipemic ALT 07/13/2024 3:16 AM [facility] Comment:Unsatisfactory speci men - lipemic Bilirubin Direct 07/13/20 3:16 AM [facility] Comment:Unsatisfactory speci men - lipemic Blood BLOOD SPECIMEN / Unknown Venipuncture / Unknown 07/13/2024 1:19 AM RN OPERATING ROOM 07/13/2024 1:23 AM RN OPERATING ROOM Jack Cornejo MD LAB - BLOOD ORDERABLES Final Res ult [facility] [address] [place] [address], [facility] * (ABNORMAL) Basic metabolic panel (07/13/2024 1:19 AM RN OPERATING ROOM) Only the most recent of11 resultswithin the time period is included. Sodium 127(L) 135 - 145 mmol/L 07/13/2024 3:15 AM [facility] Potassium 4.4 3.4 - 5.3 mmol/L 07/13/2024 3:15 AM [facility] Chloride 91(L) 98 - 107 mmol/L 07/13/2024 3:15 AM [facility] Carbon Dioxide (CO2) 23 22 - 29 mmol/L 07/13/2024 3:15 AM [facility] Anion Gap 13 7 - 15 mmol/L 07/13/2024 3:15 AM [facility] Urea Nitrogen 22.0(H) 6.0 - 20.0 mg/dL 07/13/2024 3:15 AM [facility] Creatinine 0.92 0.67 - 1.17 mg/dL 07/13/2024 3:15 AM [facility] GFR Estimate >90 >60 mL/min/1.7 3m2 07/13/2024 3:15 AM [facility] Comment:eGFR calculated us2020 CKD-EPI equation. Calcium 9.6 8.8 - 10.4 mg/dL 07/13/2024 3:15 AM [facility] Comment:Reference intervals for this test were updated on 02/03/2024 to reflect our healthy population more accurately. There may be differences in the flagging of prior results with similar values performed with this method. Those prior results can be interpreted in the context of the updated reference intervals. Glucose 91 70 - 99 mg/dL 07/13/2024 3:15 AM [facility] Blood BLOOD SPECIMEN / Unknown Venipuncture / Unknown 07/13/2024 1:19 AM RN OPERATING ROOM 07/13/2024 1:23 AM RN OPERATING ROOM Jack Cornejo MD LAB - BLOOD ORDERABLES Final Res ult [facility] [address] [place] [address], [facility] * Extra Purple Top Tube (07/11/2024 3:25 PM RN OPERATING ROOM) Only the most recent of6 resultswithin the time period is included. Hold Specimen [facility] 07/11/2024 4:32 PM RN OPERATING ROOM [facility] Blood VENOUS LINE / Unknown Venipuncture / Unknown 07/11/2024 3:25 PM RN OPERATING ROOM 07/11/2024 3:30 PM RN OPERATING ROOM Afshin Chisholm MD LAB - BLOOD ORDERABLES Final Result Performing Organization Address City/[facility] Co de Phone Number [facility] [address] [place] [address], [facility] * Extra Green Top ([place] Heparin) Tube (07/11/2024 3:25 PM RN OPERATING ROOM) Only the most recent of4 resultswithin the time period is included. Hold Specimen [facility] 07/11/2024 4:32 PM RN OPERATING ROOM [facility] Blood VENOUS LINE / Unknown Venipuncture / Unknown 07/11/2024 3:25 PM RN OPERATING ROOM 07/11/2024 3:30 PM RN OPERATING ROOM Afshin Chisholm MD LAB - BLOOD ORDERABLES Final Result Performing Organization Address City/[facility]/ZIP Co de Phone Number [facility] [address] [place] [address], [facility] * RBC and Platelet Morphology (07/11/2024 3:25 PM RN OPERATING ROOM) Only the most recent of2 resultswithin the time period is included. RBC Morphology Confirmed RBC Indices 07/11/2024 4:32 PM RN OPERATING ROOM [facility] Platelet Assessment Automated Count Confirmed. Platelet morphology is normal. Automated Count Confirmed. Platelet morphology is normal. ALBERTO 07/11/2024 4:32 PM RN OPERATING ROOM [facility] Blood VENOUS LINE / Unknown Venipuncture / Unknown 07/11/2024 3:25 PM RN OPERATING ROOM 07/11/2024 3:30 PM RN OPERATING ROOM Clinton Franklin DO LAB - BLOOD ORDERABLES Final R esult Performing Organization Address [facility] de Phone Number [facility] [address] * Magnesium (06/27/2024 8:36 AM RN OPERATING ROOM) Only the most recent of13 resultswithin the time period is included. Magnesium 1.9 1.7 - 2.3 mg/dL 06/27/2024 9:09 AM RN OPERATING ROOM [facility] Blood BLOOD SPECIMEN / Unknown Venipuncture / Unknown 06/27/2024 8:36 AM RN OPERATING ROOM 06/27/2024 8:39 AM RN OPERATING ROOM us Ronda Ugarte MD LAB - BLOOD ORDERABLES Final Re sult Performing Organization Address [facility] de Phone Number [facility] [address] * Ethyl Alcohol Level (06/27/2024 8:36 AM RN OPERATING ROOM) Only the most recent of5 resultswithin the time period is included. Alcohol ethyl <0.01 <=0.01 g/dL 06/27/2024 9:09 AM RN OPERATING ROOM [facility] Blood BLOOD SPECIMEN / Unknown Venipuncture / Unknown 06/27/2024 8:36 AM RN OPERATING ROOM 06/27/2024 8:39 AM RN OPERATING ROOM us Ronda Ugarte MD LAB - BLOOD ORDERABLES Final Re sult Performing Organization Address [facility] de Phone Number [facility] [address] * Urine Creatinine for Drug Screen Panel (06/24/2024 5:29 PM RN OPERATING ROOM) Only the most recent of2 resultswithin the time period is included. Creatinine Urine for Drug Screen 57 mg/dL 06/24/2024 6:26 PM RN OPERATING ROOM [facility] Comment:The reference range has not been established for creatinine in random urines. The results should be integrated into the clinical context for interpretation. Urine URINE SPECIMEN OBTAINED BY CLEAN CATCH PROCEDURE / Unknown Non-blood Collection / Unknown 06/24/2024 5:29 PM RN OPERATING ROOM 06/24/2024 5:57 PM RN OPERATING ROOM us Osmar Kitchen MD LAB - URINE ORDERABLES Final Res ult [facility] [address] [facility], [address] [place] [id number] [place] [address] * (ABNORMAL) Urine Drug Confirmation Panel (06/24/2024 5:29 PM RN OPERATING ROOM) Nordiazepam Present(A ) Absent 06/30/2024 1:57 PM RN OPERATING ROOM [facility] Comment:Nordiazepam is an ex pected metabolite of diazepam. Oxazepam Present(A ) Absent 06/30/2024 1:57 PM RN OPERATING ROOM [facility] Comment:Oxazepam and temazep am are benzodiazepine drugs but may also be present as common metabolites of other benzodiazepine drugs, including diazepam, temazepam. Oxazepam and temazepam are also available as scheduled prescription medications. Temazepam Present(A ) Absent 06/30/2024 1:57 PM RN OPERATING ROOM [facility] Comment:Oxazepam and temazep am are benzodiazepine drugs, but may also be present as common metabolites of other benzodiazepine drugs, including diazepam. Gabapentin (Neurontin) Present(A ) Absent 06/30/2024 1:57 PM RN OPERATING ROOM [facility] Comment:Sources of gabapenti n are prescription medications. Urine URINE SPECIMEN OBTAINED BY CLEAN CATCH PROCEDURE / Unknown Non-blood Collection / Unknown 06/24/2024 5:29 PM RN OPERATING ROOM 06/24/2024 5:57 PM RN OPERATING ROOM Narrative [facility] - 06/30/2024 1:57 PM RN OPERATING ROOM This test was developed and its performance characteristics determined by the [facility], [facility]. It has not been cleared or approved by the FDA. The laboratory is regulated under CLIA as qualified to perform high-complexity testing. This test is used for clinical purposes. It should not be regarded as investigational or for research. Drugs with concentrations less than the cutoff will not be reported. The drugs with applicable detection cutoff limits that are included within the Drug Confirmation Panel are: The following drugs are detected with a cutoff of 3 ng/ml: FENTANYL The following drugs are detected with a cutoff of 5 ng/mL: 6-ACETYLMORPHINE, BUPRENORPHINE, NALOXONE, NORBUPRENORPHINE, NORFENTANYL The following drugs are detected with a cutoff of 10 ng/mL: SUFENTANIL The following drugs are detected with a cutoff of 20 ng/mL: PCP (PHENCYCLIDINE) The following drugs are detected with a cutoff of 50 ng/mL: 7-AMINOCLONAZEPAM, 7-AMINOFLUNITRAZEPAM, ALPRAZOLAM, AMPHETAMINE, F-CA-RQQJKASFOA, T-VR-ISDBAPXYL, G-CR-SEULJLMFC, BENZOYLECGONINE (Cocaine Metabolite), CLONAZEPAM, COCAETHYLENE (Cocaine Metabolite), CODEINE, DIAZEPAM, DIHYDROCODEINE, EDDP (Methadone Metabolite), HYDROCODONE, HYDROMORPHONE, LORAZEPAM, MDA (3,4-Methylenedioxyamphetamine), MDEA (3,3-Akuezihusdzkhg-F-ethylcathinone), MDMA (Methylenedioxyamphetamine,Ecstasy), MEPERIDINE, METHADONE, METHAMPHETAMINE, METHYLPHENIDATE (Ritalin), MORPHINE, NALTREXONE, R-JDHASWB-WRHVQRHPMM, NORCODEINE, NORDIAZEPAM, NORMEPERIDINE, S-VOS-IPZPCSAK, OXAZEPAM, OXYCODONE, OXYMORPHONE, PROPOXYPHENE, RITALINIC ACID, TAPENTADOL, TEMAZEPAM, THEBAINE, TRAMADOL The following drugs are detected with a cutoff of 100 ng/mL: GABAPENTIN, KETAMINE The following drugs are detected with a cutoff of 200 ng/mL: PREGABALIN, XYLAZINE Providers with questions surrounding testing results should contact the Clinical Chemistry service line. Osmar Kitchen MD LAB - URINE ORDERABLES Final Res ult Performing Organization Address City/[facility]/ZIP Co de Phone Number [facility] [address] [facility], [address] [id number] * THC Confirmation Quantitative Urine (06/24/2024 5:28 PM RN OPERATING ROOM) THC Metabolite 358 ng/mL 07/03/2024 1:05 PM RN OPERATING ROOM [facility] Comment: Positive cuttoff: 5 ng/mL Quantitative result is marijuana metabolite measured as 09-wbf-gvjvk-[id number]-tqhjgwq-UZI (carboxy-THC) by liquid chromatography with mass spectrometry (LC-MS/MS). This test cannot distinguish between prescribed or non-prescribed forms of THC nor can it distinguish between active or passive use. Results are reported to limit of quantitation of the assay. This test is for medical purposes only. Not valid for forensic use. A chain of custody was not used. THC/Creatinine Ratio 628 ng/mg Creat 07/03/2024 1:05 PM RN OPERATING ROOM [facility] Urine URINE SPECIMEN OBTAINED BY CLEAN CATCH PROCEDURE / Unknown Non-blood Collection / Unknown 06/24/2024 5:28 PM RN OPERATING ROOM 06/24/2024 10:03 PM RN OPERATING ROOM Narrative [facility] - 07/03/2024 1:05 PM RN OPERATING ROOM This test was developed and its performance characteristics determined by the [facility], [facility]. It has not been cleared or approved by the FDA. The laboratory is regulated under CLIA as qualified to perform high-complexity testing. This test is used for clinical purposes. It should not be regarded as investigational or for research. Osmar Kitchen MD LAB - URINE ORDERABLES Final Res ult [facility] [address] [facility], [address] [phone] * Benzodiazepines, Urine, Quantitative (06/24/2024 5:28 PM RN OPERATING ROOM) Diazepam, Urine <20 ng/mL 6:14 PM RN OPERATING ROOM [facility] Comment:Cutoff: 20 ng/mL Oxazepam 377 ng/mL 06/28/2024 6:14 PM RN OPERATING ROOM [facility] Comment:Cutoff: 20 ng/mL Temazepam, Urn, Quant 273 ng/mL 06/28/2024 6:14 PM RN OPERATING ROOM [facility] Comment:Cutoff: 20 ng/mL Nordiazepam, Urn, Quant 262 ng/mL 06/28/2024 6:14 PM RN OPERATING ROOM [facility] Comment:Cutoff: 20 ng/mL Chlordiazepoxide, Urn, Quant <20 ng/mL 06/28/2024 6:14 PM RN OPERATING ROOM [facility] Comment:Cutoff: 20 ng/mL Lorazepam <20 ng/mL 06/28/2024 6:14 PM RN OPERATING ROOM [facility] Comment:Cutoff: 20 ng/mL Alprazolam <5 ng/mL 06/28/2024 6:14 PM RN OPERATING ROOM [facility] Comment:Cutoff: 5 ng/mL Alpha-Hydroxytriazol am, Urine 21 ng/mL 06/28/2024 6:14 PM RN OPERATING ROOM [facility] Comment:Cutoff: 5 ng/mL Clonazepam, Urine <5 ng/mL 024 6:14 PM RN OPERATING ROOM [facility] Comment:Cutoff: 5 ng/mL 7-aminoclonazepam, Urine <5 ng/mL 06/28/2024 6:14 PM RN OPERATING ROOM [facility] Comment:Cutoff: 5 ng/mL Midazolam, Urine <20 ng/mL 06/28/20 24 6:14 PM RN OPERATING ROOM [facility] Comment:Cutoff: 20 ng/mL Alpha-hydroxymidazol am, Urine <20 ng/mL 06/28/2024 6:14 PM RN OPERATING ROOM [facility] Comment: Cutoff: 20 ng/mL INTERPRETIVE INFORMATION: Benzodiazepines, Urine, Quantitative Methodology: Quantitative Liquid Chromatography-Tandem Mass Spectrometry For medical purposes only; not valid for forensic use. Identification of specific drug(s) taken by specimen donor is problematic due to common metabolites, some of which are prescription drugs themselves. The absence of expected drug(s) and/or drug metabolite(s) may indicate non-compliance, inappropriate timing of specimen collection relative to drug administration, poor drug absorption, diluted/adulterated urine, or limitations of testing. The concentration value must be greater than or equal to the cutoff to be reported as positive. Interpretive questions should be directed to the laboratory. This test was developed and its performance characteristics determined by [facility]. It has not been cleared or approved by the [place] Food and Drug Administration. This test was performed in a CLIA certified laboratory and is intended for clinical purposes. Performed By: [facility] [address] [place] [address] Straightener And Aligner: Edson Sheffield MD, PhD CLIA Number: [id number] Urine URINE SPECIMEN OBTAINED BY CLEAN CATCH PROCEDURE / Unknown Non-blood Collection / Unknown 06/24/2024 5:28 PM RN OPERATING ROOM 06/24/2024 10:03 PM RN OPERATING ROOM us Osmar Kitchen MD LAB - URINE ORDERABLES Final Res ult [facility] Docin [facility] Balanced [address] [place] [id number], [facility] [phone] * (ABNORMAL) Urine Drug Screen Panel (06/24/2024 5:28 PM RN OPERATING ROOM) Only the most recent of2 resultswithin the time period is included. Amphetamines Urine Screen Negative Screen Negative 06/24/2024 10:03 PM RN OPERATING ROOM [facility] Comment:Cutoff for a negativ e amphetamine is less than 500 ng/mL. Barbituates Urine Screen Negative Screen Negative 06/24/2024 10:03 PM RN OPERATING ROOM [facility] Comment:Cutoff for a negativ e barbiturate is less than 200 ng/mL. Benzodiazepine Urine Screen Positive(A) Screen Negative 06/24/2024 10:03 PM RN OPERATING ROOM [facility] Comment: Cutoff for a positive benzodiazepine is 100 ng/mL or greater. This is an unconfirmed screening result to be used for medical purposes only. Cannabinoids Urine Screen Positive(A) Screen Negative 06/24/2024 10:03 PM RN OPERATING ROOM [facility] Comment: Cutoff for a positive cannabinoid is 50 ng/mL or greater. This is an unconfirmed screening result to be used for medical purposes only. Cocaine Urine Screen Negative Screen Negative 06/24/2024 10:03 PM RN OPERATING ROOM [facility] Comment:Cutoff for a negativ e cocaine is less than 300 ng/mL. Fentanyl Qual Urine Screen Negative Screen Negative 06/24/2024 10:03 PM RN OPERATING ROOM [facility] Comment:Cutoff for negative fentanyl is less than 5 ng/mL. Opiates Urine Screen Negative Screen Negative 06/24/2024 10:03 PM RN OPERATING ROOM [facility] Comment:Cutoff for a negativ e opiate is less than 300 ng/mL. PCP Urine Screen Negative Screen Negative 06/24/2024 10:03 PM RN OPERATING ROOM [facility] Comment:Cutoff for a negativ e PCP is less than 25 ng/mL. Urine URINE SPECIMEN OBTAINED BY CLEAN CATCH PROCEDURE / Unknown Non-blood Collection / Unknown 06/24/2024 5:28 PM RN OPERATING ROOM 06/24/2024 9:43 PM RN OPERATING ROOM us Osmar Kitchen MD LAB - URINE ORDERABLES Final Res ult [facility] [address] [facility], [address] [id number] * Phosphatidylethanol (PEth), Whole Blood (06/24/2024 8:14 AM RN OPERATING ROOM) PEth 16:0/18:1 (POPEth) 71 ng/mL 06/26/2024 12:33 PM RN OPERATING ROOM [facility] Comment: PEth 16:0/18:1 (POPEth) Less than 10 ng/mL............Not detected Less than 20 ng/mL............Abstinence or light alcohol consumption 20 - 200 ng/mL................Moderate alcohol consumption Greater than 200 ng/mL........Heavy alcohol consumption or chronic alcohol use (Reference: Arlette Marcos and Shira Bassett 2018 J. [employer] Sci) PEth 16:0/18:2 (PLPEth) 28 ng/mL 06/26/2024 12:33 PM RN OPERATING ROOM [facility] Comment:Reference ranges are not well established. EER Phosphatidylethanol (PETH) See Note 06/26/2024 12:33 PM RN OPERATING ROOM [facility] Comment: Authorized individuals can access the [facility] Enhanced Report using the following link: [email or web address] PEth Interpretation See Comment 06/26/2024 12:33 PM RN OPERATING ROOM [facility] Comment: Phosphatidylethanol (PEth) is a group of phospholipids formed in the presence of ethanol, phospholipase D and phosphatidylcholine. PEth is known to be a direct alcohol biomarker. The predominant PEth homologues are PEth 16:0/18:1 (POPEth) and PEth 16:0/18:2 (PLPEth), which account for 37-46% and 26-28% of the total PEth homologues, respectively. PEth is incorporated into the phospholipid membrane of red blood cells and has a general half-life of 4-10 days and a window of detection of 2-4 weeks. However, the window of detection is longer in individuals who chronically or excessively consume alcohol. The limit of quantification is 10 ng/mL. Serial monitoring of PEth may be helpful in monitoring alcohol abstinence over time. PEth results should be interpreted in the context of the patient's clinical and behavioral history. Patients with advanced liver disease may have falsely elevated PEth concentrations (Malu ARZOLA et al 2018, Alcoholism Clinical & Experimental Research). This test was developed and its performance characteristics determined by [facility]. It has not been cleared or approved by the U.S. Food and Drug Administration. This test was performed in a CLIA-certified laboratory and is intended for clinical purposes. Performed By: [facility] [address] [place] [id number] Straightener And Aligner: Edson Sheffield MD, PhD CLIA Number: [id number] Blood BLOOD SPECIMEN / Unknown Venipuncture / Unknown 06/24/2024 8:14 AM RN OPERATING ROOM 06/24/2024 8:39 AM RN OPERATING ROOM us Osmar Kitchen MD LAB - BLOOD ORDERABLES Final Res ult [facility] [address] [place] [phone], [facility] [phone] * (ABNORMAL) Comprehensive metabolic panel (06/24/2024 8:14 AM RN OPERATING ROOM) Only the most recent of7 resultswithin the time period is included. Sodium 135 135 - 145 mmol/L 06/24/2024 11:15 AM RN OPERATING ROOM [facility] Potassium 3.5 3.4 - 5.3 mmol/L 06/24/2024 11:15 AM RN OPERATING ROOM [facility] Carbon Dioxide (CO2) 27 22 - 29 mmol/L 06/24/2024 11:15 AM RN OPERATING ROOM [facility] Anion Gap 13 7 - 15 mmol/L 06/24/2024 11:15 AM RN OPERATING ROOM [facility] Urea Nitrogen 13.0 6.0 - 20.0 mg/dL 06/24/2024 11:15 AM RN OPERATING ROOM [facility] Creatinine 1.18(H) 0.67 - 1.17 mg/dL 06/24/2024 11:15 AM RN OPERATING ROOM UR [facility] GFR Estimate 86 >60 mL/min/1.7 3m2 06/24/2024 11:15 AM RN OPERATING ROOM [facility] Comment:eGFR calculated usin 2020 CKD-EPI equation. Calcium 9.4 8.8 - 10.4 mg/dL 06/24/2024 11:15 AM RN OPERATING ROOM [facility] Comment:Reference intervals for this test were updated on 02/03/2024 to reflect our healthy population more accurately. There may be differences in the flagging of prior results with similar values performed with this method. Those prior results can be interpreted in the context of the updated reference intervals. Chloride 95(L) 98 - 107 mmol/L 06/24/2024 11:15 AM RN OPERATING ROOM UR [facility] Glucose 111(H) 70 - 99 mg/dL 06/24/2024 11:15 AM RN OPERATING ROOM [facility] Alkaline Phosphatase 78 40 - 150 U/L 06/24/2024 11:15 AM RN OPERATING ROOM [facility] AST 15 0 - 45 U/L 06/24/2024 11:15 AM RN OPERATING ROOM [facility] ALT 15 0 - 70 U/L 06/24/2024 11:15 AM RN OPERATING ROOM [facility] Protein Total 6.2(L) 6.4 - 8.3 g/dL 06/24/2024 11:15 AM RN OPERATING ROOM [facility] Albumin 4.2 3.5 - 5.2 g/dL 06/24/2024 11:15 AM RN OPERATING ROOM [facility] Bilirubin Total 0.7 <=1.2 mg/dL 06/24/2024 11:15 AM RN OPERATING ROOM [facility] Blood BLOOD SPECIMEN / Unknown Venipuncture / Unknown 06/24/2024 8:14 AM RN OPERATING ROOM 06/24/2024 8:39 AM RN OPERATING ROOM us Dillon Euceda PA-C LAB - BLOOD ORDERABLES Final Res ult UR LABORATORY [facility] [address] [facility], [address] [address] * (ABNORMAL) CBC with platelets (06/24/2024 8:14 AM RN OPERATING ROOM) Only the most recent of3 resultswithin the time period is included. WBC Count 9.8 4.0 - 11.0 10e3/uL 06/24/2024 8:50 AM RN OPERATING ROOM UR LAB[facility]ATORY RBC Count 4.16(L) 4.40 - 5.90 10e6/uL 06/24/2024 8:50 AM RN OPERATING ROOM UR [facility] Hemoglobin 11.1(L) 13.3 - 17.7 g/dL 06/24/2024 8:50 AM RN OPERATING ROOM UR [facility]ORY Hematocrit 33.5(L) 40.0 - 53.0 % 06/24/2024 8:50 AM RN OPERATING ROOM UR [facility] MCV 81 78 - 100 fL 06/24/2024 8:50 AM RN OPERATING ROOM UR LAB[facility]ORY MCH 26.7 26.5 - 33.0 pg 06/24/2024 8:50 AM RN OPERATING ROOM UR LAB[facility]ORY MCHC 33.1 31.5 - 36.5 g/dL 06/24/2024 8:50 AM RN OPERATING ROOM UR [facility] RDW 16.2(H) 10.0 - 15.0 % 06/24/2024 8:50 AM RN OPERATING ROOM UR [facility] Platelet Count 472(H) 150 - 450 10e3/uL 06/24/2024 8:50 AM RN OPERATING ROOM [facility] Blood BLOOD SPECIMEN / Unknown Venipuncture / Unknown 06/24/2024 8:14 AM RN OPERATING ROOM 06/24/2024 8:39 AM RN OPERATING ROOM us Dillon Euceda PA-C LAB - BLOOD ORDERABLES Final Res ult UR LABORATORY [facility] [address] [facility], [address] [place] [phone] * Lactic acid whole blood (06/23/2024 6:19 PM RN OPERATING ROOM) Only the most recent of2 resultswithin the time period is included. Pathologist [facility] Lactic Acid 1.1 0.7 - 2.0 mmol/L 06/23/2024 6:31 PM RN OPERATING ROOM [facility] Blood STRUCTURE OF RIGHT UPPER LIMB / Unknown Venipuncture / Unknown 06/23/2024 6:19 PM RN OPERATING ROOM 06/23/2024 6:27 PM RN OPERATING ROOM Yamil Espinosa MD LAB - BLOOD ORDERABLES Final R esult Performing Organization Address City/[facility]/ZIP Co de Phone Number LABORATORY [facility] [place] [facility] [address] [facility], [address] [place], [place] [address] * (ABNORMAL) Lactic acid whole blood with 1x repeat in 2 hr when >2 (06/23/2024 3:49 PM RN OPERATING ROOM) [facility] Lactic Acid, Initial 2.2(H) 0.7 - 2.0 mmol/L 06/23/2024 4:11 PM RN OPERATING ROOM U LABORATORY Blood BLOOD SPECIMEN / Unknown Venipuncture / Unknown 06/23/2024 3:49 PM RN OPERATING ROOM 06/23/2024 3:59 PM RN OPERATING ROOM us Yamil Espinosa MD LAB - BLOOD ORDERABLES Final R esult LABORATORY [facility] [place] [facility] [address] [facility], Room [address] [place], [place] [address] [address] * Adult Type and Screen (06/23/2024 3:49 PM RN OPERATING ROOM) Only the most recent of3 resultswithin the time period is included. Pathologist [facility] ABO/RH(D) B POS 06/23/2024 3:38 PM RN OPERATING ROOM BLOOD BANK Antibody Screen Negative Negative 06/23/2024 3:38 PM RN OPERATING ROOM BLOOD BANK SPECIMEN EXPIRATION DATE [id number] 06/23/2024 3:38 PM RN OPERATING ROOM U BLOOD BANK Blood BLOOD SPECIMEN / Unknown Venipuncture / Unknown 06/23/2024 3:49 PM RN OPERATING ROOM 06/23/2024 3:59 PM RN OPERATING ROOM Yamil Espinosa MD LAB - BLOOD BANK TEST ORDER Fi nal Result U BLOOD BANK [address] [place] [address] * EKG 12-lead, tracing only (06/23/2024 3:46 PM RN OPERATING ROOM) Only the most recent of4 resultswithin the time period is included. Systolic Blood Pressure mmHg RADIOLOGY RESULTS Diastolic Blood Pressure mmHg RADIOLOGY RESULTS Ventricular Rate 90 BPM RAD IOLOGY RESULTS Atrial Rate 90 BPM RADIOLOG Y RESULTS IN Interval 136 ms RADIOLOG Y RESULTS QRS Duration 84 ms RADIOLO GY RESULTS QT 384 ms RADIOLOGY RESULTS QTc 469 ms RADIOLOGY RESULTS P [place] 80 degrees RADIOLOGY RESULTS R AXIS 55 degrees RADIOLOGY RESULTS T [place] 52 degrees RADIOLOGY RESULTS Interpretation ECG Sinus rhythm Normal ECG Unconfirmed report - interpretation of this ECG is computer generated - see medical record for final interpretation Confirmed by - EMERGENCY ROOM, PHYSICIAN ([id number]), features editor CORRINA COSTELLO ([id number]) on 06/24/2024 7:43:56 AM RADIOLOGY RESULTS 06/23/2024 3:46 PM RN OPERATING ROOM 06/24/2024 7:43 AM RN OPERATING ROOM Yamil Espinosa MD ECG ORDERABLES Edited Result - Final RADIOLOGY RESULTS * Extra Red Top Tube (06/23/2024 3:42 PM RN OPERATING ROOM) Hold Specimen JIC 06/23/2024 5:02 PM RN OPERATING ROOM U LABORATORY Blood STRUCTURE OF LEFT UPPER LIMB / Unknown Venipuncture / Unknown 06/23/2024 3:42 PM RN OPERATING ROOM 06/23/2024 4:00 PM RN OPERATING ROOM Adam Barros DO LAB - BLOOD ORDERABLES Fi nal Result LABORATORY [facility] [place] [facility] [address] [facility], Room [address] [phone] * Extra Blue Top Tube (06/23/2024 3:42 PM RN OPERATING ROOM) Hold Specimen JIC 06/23/2024 5:02 PM RN OPERATING ROOM LABORATORY Blood STRUCTURE OF LEFT UPPER LIMB / Unknown Venipuncture / Unknown 06/23/2024 3:42 PM RN OPERATING ROOM 06/23/2024 4:00 PM RN OPERATING ROOM Adam Barros DO LAB - BLOOD ORDERABLES Fi nal Result Performing Organization Address City/[facility]/ZIP Co de Phone Number LABORATORY [facility] [address] [facility], [address] [address] * INR (06/23/2024 3:42 PM RN OPERATING ROOM) Only the most recent of3 resultswithin the time period is included. INR 1.08 0.85 - 1.15 06/23/2024 4:25 PM RN OPERATING ROOM LABORATORY Blood STRUCTURE OF LEFT UPPER LIMB / Unknown Venipuncture / Unknown 06/23/2024 3:42 PM RN OPERATING ROOM 06/23/2024 4:00 PM RN OPERATING ROOM Yamil Espinosa MD LAB - BLOOD ORDERABLES Final R esult LABORATORY [facility] [address] [facility], [address] [address] * Phosphorus (06/23/2024 3:42 PM RN OPERATING ROOM) Only the most recent of11 resultswithin the time period is included. Phosphorus 2.6 2.5 - 4.5 mg/dL 06/23/2024 7:44 PM RN OPERATING ROOM LABORATORY Blood STRUCTURE OF LEFT UPPER LIMB / Unknown Venipuncture / Unknown 06/23/2024 3:42 PM RN OPERATING ROOM 06/23/2024 4:00 PM RN OPERATING ROOM us Dillon Euceda PA-C LAB - BLOOD ORDERABLES Final Res ult UU LABORATORY [facility] [address] [facility], [address] [place] [address], [facility] * Potassium (06/16/2024 11:47 PM RN OPERATING ROOM) Only the most recent of9 resultswithin the time period is included. Potassium 3.8 3.4 - 5.3 mmol/L 06/17/2024 12:16 AM RN OPERATING ROOM UR LABORATORY Blood STRUCTURE OF RIGHT UPPER LIMB / Unknown Venipuncture / Unknown 06/16/2024 11:47 PM RN OPERATING ROOM 06/16/2024 11:53 PM RN OPERATING ROOM us Remy Johnson MD LAB - BLOOD ORDERABLES Corie l Result UR LABORATORY [facility] [address] [facility], [address] [place] [address], [facility] * Troponin T, High Sensitivity (06/15/2024 3:43 PM RN OPERATING ROOM) Only the most recent of2 resultswithin the time period is included. Troponin T, High Sensitivity 15 <=22 ng/L 06/15/2024 4:15 PM RN OPERATING ROOM UR LABORATORY Comment: Either a High Sensitivity Troponin T baseline (0 hours) value = 100 ng/L, or an increase in High Sensitivity Troponin T = 7 ng/L at 2 hours compared to 0 hours (2-0 hours), suggests myocardial injury, and urgent clinical attention is required. If the 2-0 hours increase is <7 ng/L, a High Sensitivity Troponin T result above gender-specific reference ranges warrants further evaluation. Recommendations for further evaluation include correlation with clinical decision-making tool (e.g., HEART), a 3rd High Sensitivity Troponin T test 2 hours after the 2nd (a 20% change from baseline would represent concern), admission for observation, close PCC/cardiology follow-up, or urgent outpatient provocative testing. Blood STRUCTURE OF LEFT HAND / Unknown Venipuncture / Unknown 06/15/2024 3:43 PM RN OPERATING ROOM 06/15/2024 3:52 PM RN OPERATING ROOM Remy Johnson MD LAB - BLOOD ORDERABLES Corie l Result UR LABORATORY [facility], Room [address] [address] * Extra Blood Bank Purple Top Tube (06/14/2024 8:24 PM RN OPERATING ROOM) Hold Specimen JIC 06/14/2024 9:46 PM RN OPERATING ROOM LABORATORY Blood BLOOD SPECIMEN / Unknown Venipuncture / Unknown 06/14/2024 8:24 PM RN OPERATING ROOM 06/14/2024 8:37 PM RN OPERATING ROOM Clinton Smith MD LAB - BLOOD ORDERABLES Final Res ult UR LABORATORY [facility] [address] [place] [address], Room [address] [phone] * (ABNORMAL) Hemoglobin (06/01/2024 1:49 PM RN OPERATING ROOM) Only the most recent of13 resultswithin the time period is included. Hemoglobin 8.9(L) 13.3 - 17.7 g/dL 06/01/2024 2:09 PM RN OPERATING ROOM U LABORATORY Blood STRUCTURE OF RIGHT UPPER LIMB / Unknown VAD(CVC, PICC) / Unknown 06/01/2024 1:49 PM RN OPERATING ROOM 06/01/2024 1:55 PM RN OPERATING ROOM Alex Lyons MD LAB - BLOOD ORDERABLES Final Res ult UU LABORATORY [facility] [place] [facility] [address] [facility], [address] [place] [address] * UPPER GI ENDOSCOPY (06/01/2024 11:25 AM RN OPERATING ROOM) Upper GI Endoscopy [address] [place] [address] [phone] Endoscopy Department ___ Patient Name: Claudio Sapp Procedure Date: 06/01/2024 11:25 AM Date of : 1995 Admit Type: Inpatient Age: 28 Room: [place] [address] Gender: Male Note Status: Finalized Attending MD: CHAS PEREZ MD, Total Sedation Time: ___ Procedure: Upper GI endoscopy Indications: Hematemesis Providers: CHAS PEREZ MD, Paul Orosco RN, ALEX LYONS Patient Profile: 28 year old male with a history of alcohol use disorder who is having an EGD due to hematemesis and anemia. Referring MD: Medicines: Monitored Anesthesia Care Complications: No immediate complications. ___ Procedure: Pre-Anesthesia Assessment: - Monitored anesthesia care was determined to be medically necessary for this procedure based on review of the patient's medical history, medications, and prior anesthesia history. After obtaining informed consent, the endoscope was passed under direct vision. Throughout the procedure, the patient's blood pressure, pulse, and oxygen saturations were monitored continuously. The Endoscope was introduced through the mouth, and advanced to the second part of duodenum. The upper GI endoscopy was accomplished without difficulty. The patient tolerated the procedure well. Findings: One large linear esophageal ulcer likely due to a healing Suma Bravo tear with no stigmata of active bleeding was found. The gastroesophageal flap valve was visualized endoscopically and classified as Hill Grade I (prominent fold, tight to endoscope). The exam of the esophagus was otherwise normal. The entire examined stomach was normal. The examined duodenum was normal. Impression: - Esophageal ulcer likely due to Suma Bravo tear with no stigmata of bleeding that is the likely etiology in this case. - Normal stomach. - Normal examined duodenum. - No specimens collected. Recommendation: - Return patient to [facility] for ongoing care. - Recommend PPI BID for 12 weeks. Can transition to oral if patient is tolerating diet. - No need for repeat EGD. - Can advance diet from GI standpoint. Signed Electronically by Chas Perez MD __ CHAS PEREZ MD 06/02/2024 12:24:30 PM I was physically present for the entire viewing portion of the exam. Signature of teaching physician Alphonso/Anuj PEREZ MD ALEX LYONS, Number of Addenda: 0 Note Initiated On: 06/01/2024 11:25 AM Scope In: Scope Out: RADIOLOGY RESULTS 06/01/2024 11:2 5 AM RN OPERATING ROOM us Chas Perez MD PROCEDURES Final Resul t RADIOLOGY RESULTS * (ABNORMAL) Glucose by meter (05/30/2024 10:40 PM RN OPERATING ROOM) GLUCOSE BY METER POCT 106(H) 70 - 99 mg/dL 05/30/2024 10:47 PM RN OPERATING ROOM [facility] LABORATORY POC Blood, venous BLOOD SPECIMEN / Unknown 05/30/2024 10:40 PM RN OPERATING ROOM 05/30/2024 10:47 PM RN OPERATING ROOM us Teja Harrison MD LAB - BEAKER POCT Final Result UU LABORATORY POC [facility] [place] [facility] [address] [facility], Room [address] [place] [address] * Transfuse red blood cells (unit) (05/30/2024 8:24 PM RN OPERATING ROOM) Joshua Berry PA-C BLOOD TRANSFUSION ORDERABLE S Final Result * Prepare red blood cells (unit) (05/30/2024 3:40 PM RN OPERATING ROOM) Blood Component Type Red Blood Cells UU BLOOD BANK Product Code [id number] UU BLOO D BANK Unit Status Transfused UU BLOO D BANK Unit Number [id number] UU B LOOD BANK CROSSMATCH Compatible UU BLOOD BANK CODING SYSTEM [id number] UU BLO OD BANK ISSUE DATE AND TIME [id number] UU BLOOD BANK UNIT ABO/RH B+ UU BLOOD BANK UNIT TYPE ISBT 7300 UU BL OOD BANK 05/30/2024 3:40 PM RN OPERATING ROOM Joshua Berry PA-C BLOOD BANK PRODUCT ORDERABL ES Final Result Performing Organization Address City/[facility] Co de Phone Number UU BLOOD BANK [address] [place] [address] * Triple Lumen PICC Placement (05/30/2024 10:44 AM RN OPERATING ROOM) Narrative Sukhjinder Jang RN - 05/30/2024 10:44 AM RN OPERATING ROOM Sukhjinder Jang RN 05/30/2024 10:47 AM [facility] Triple Lumen PICC Placement Date/Time: 05/30/2024 10:44 AM Performed by: Sukhjinder Jang RN Authorized by: Sammi Dominguez PA-C Indications: Multiple incompatible IV meds & frequent lab draws. UNIVERSAL PROTOCOL Site Marked: Yes Prior Images Obtained and Reviewed: Yes Required items: Required blood products, implants, devices and special equipment available Patient identity confirmed: Verbally with patient, hospital-assigned identification number and provided demographic data Patient was reevaluated immediately before administering moderate or deep sedation or anesthesia Confirmation Checklist: Patient's identity using two indicators, procedure was appropriate and matched the consent or emergent situation, correct equipment/implants were available and relevant allergies Time out: Immediately prior to the procedure a time out was called [place] Protocol: the Joint Commission [place] Protocol was followed Preparation: Patient was prepped and draped in usual sterile fashion ANESTHESIA Anesthesia: See MAR for details Local Anesthetic: Lidocaine 1% without epinephrine Anesthetic Total (mL): 1 SEDATION Patient Sedated: No Preparation: skin prepped with ChloraPrep Skin prep agent: skin prep agent completely dried prior to procedure Sterile barriers: maximum sterile barriers were used: cap, mask, sterile gown, sterile gloves, and large sterile sheet Hand hygiene: hand hygiene performed prior to central venous catheter insertion Type of line used: PICC Catheter type: triple lumen Lumen type: non-valved and power PICC Lumen Identification: Pearce, Red and White Catheter size: 5 Fr Brand: Bard Lot number: [id number] Placement method: venipuncture, MST, ultrasound and tip navigation system Number of attempts: 1 Difficulty threading catheter: no Successful placement: yes Orientation: right Location: brachial vein (lateral) (vein diameter - 0.36 cm) Tip Location: SVC Arm circumference: adults 10 cm Extremity circumference: 33.5 Visible catheter length: 3 Total catheter length: 43 Dressing and securement: alcohol impregnated caps, chlorhexidine disc applied, transparent dressing, tissue adhesive, subcutaneous anchor securement system, sterile dressing applied and site cleansed Post procedure assessment: blood return through all ports, free fluid flow and placement verified by 3CG technology PROCEDURE Patient Tolerance: Patient tolerated the procedure well with no immediate complicationsDescribe Procedure: Patient tolerated well and denied pain immediately after procedure. PICC tip is in satisfactory location as verified by [employer] 3CG Tip Confirmation System. PICC is OK to use. Disposal: sharps and needle count correct at the end of procedure, needles and guidewire disposed in sharps container [facility]- PROCEDURE/MINOR SURGICAL ORDERA BLES Final Result * Osmolality (05/29/2024 5:51 PM RN OPERATING ROOM) Osmolality Blood 279 275 - 295 mmol/kg 05/29/2024 6:40 PM RN OPERATING ROOM [facility] LAB[facility]ORY Blood STRUCTURE OF RIGHT HAND / Unknown Venipuncture / Unknown 05/29/2024 5:51 PM RN OPERATING ROOM 05/29/2024 5:56 PM RN OPERATING ROOM Narrative [facility] LAB[facility]ATORY - 05/29/2024 6:40 PM RN OPERATING ROOM Greater than 385 mmol/kg relates to stupor in hyperglycemia Greater than 400 mmol/kg can relate to seizures Greater than 420 mmol/kg can be lethal Serum Osmalar Gap: Normal <10 Larger suggest unmeasured substances present in serum (ethanol, methanol, isopropanol, mannitol, ethylene glycol). us Luis Dunne PA-C LAB - BLOOD ORDERABLES F inal Result Performing Organization Address [facility] Co de Phone Number U LABORATORY [facility] [address] [facility], [address] [phone] * Sodium random urine (05/29/2024 9:35 AM RN OPERATING ROOM) Sodium Urine mmol/L 29 mmol/L 05/29/2024 12:44 PM RN OPERATING ROOM [facility] LAB[facility]ORY Comment:The reference ranges have not been established in urine sodium. The results should be integrated into the clinical context for interpretation. Urine URINE SPECIMEN OBTAINED BY CLEAN CATCH PROCEDURE / Unknown Non-blood Collection / Unknown 05/29/2024 9:35 AM RN OPERATING ROOM 05/29/2024 9:41 AM RN OPERATING ROOM Luis Dunne PA-C LAB - URINE ORDERABLES F inal Result U LABORATORY [facility] [address] [facility], [address] [phone] * Osmolality urine (05/29/2024 9:35 AM RN OPERATING ROOM) Osmolality Urine 294 100 - 1,200 mmol/kg 05/29/2024 1:00 PM RN OPERATING ROOM [facility] LABORATORY Urine URINE SPECIMEN OBTAINED BY CLEAN CATCH PROCEDURE / Unknown Non-blood Collection / Unknown 05/29/2024 9:35 AM RN OPERATING ROOM 05/29/2024 9:41 AM RN OPERATING ROOM Narrative [facility] LABORATORY - 05/29/2024 1:00 PM RN OPERATING ROOM Reference Ranges depend on patient's hydration status and renal function. Neonates: 75-300 mmol/kg 2 years and older, random specimens: 100-1200 mmol/kg; Greater than 850 mmol/kg after 12 hour fluid restriction Urine/serum osmolality ratio: 2 years and older: 1.0-3.0; 3.0-4.7 after 12 hour fluid restriction Luis Dunne PA-C LAB - URINE ORDERABLES F inal Result Performing Organization Address [facility] de Phone Number LABORATORY [facility] [place] [facility] [address] [facility], [address] [phone] * Fibrinogen activity (05/29/2024 9:35 AM RN OPERATING ROOM) [facility] Fibrinogen Activity 278 170 - 510 mg/dL 05/29/2024 4:48 PM RN OPERATING ROOM [facility] LABORATORY Comment:Effective 02/17/2024, the reference range for this assay has changed. There may be differences in the flagging of prior results with similar values performed with this method. Blood BLOOD SPECIMEN / Unknown Venipuncture / Unknown 05/29/2024 9:35 AM RN OPERATING ROOM 05/29/2024 9:46 AM RN OPERATING ROOM Luis Dunne PA-C LAB - BLOOD ORDERABLES F inal Result Performing Organization Address [facility] de Phone Number U LABORATORY [facility] [place] [facility] [address] [facility], [address] [address] * (ABNORMAL) iStat Gases Electrolytes ICA Glucose Venous, POCT (05/29/2024 7:11 AM RN OPERATING ROOM) [facility] CPB Applied No 05/29/2024 7:15 AM RN OPERATING ROOM UR LABORATORY POC Comment:000 Hematocrit POCT 45 40 - 53 % 7:15 AM RN OPERATING ROOM UR LABORATORY POC Comment:000 Calcium, Ionized Whole Blood POCT 4.2(L) 4.4 - 5.2 mg/dL 05/29/2024 7:15 AM RN OPERATING ROOM UR LABORATORY POC Comment:000 Glucose Whole Blood POCT 127(H) 70 - 99 mg/dL 05/29/2024 7:15 AM RN OPERATING ROOM UR LABORATORY POC Comment:000 Bicarbonate Venous POCT 41(H) 21 - 28 mmol/L 05/29/2024 7:15 AM RN OPERATING ROOM UR LABORATORY POC Comment:000 Hemoglobin POCT 15.3 13.3 - 17.7 g/dL 05/29/2024 7:15 AM RN OPERATING ROOM UR LABORATORY POC Comment:000 Potassium POCT 2.2(LL) 3.4 - 5.3 mmol/L 05/29/2024 7:15 AM RN OPERATING ROOM UR LABORATORY POC Comment:000 Sodium POCT 123(L) 135 - 145 mmol/L 05/29/2024 7:15 AM RN OPERATING ROOM UR LABORATORY POC Comment:000 pCO2 Venous POCT 43 40 - 50 mm Hg 05/29/2024 7:15 AM RN OPERATING ROOM UR LABORATORY POC Comment:000 pO2 Venous POCT 40 25 - 47 mm Hg 05/29/2024 7:15 AM RN OPERATING ROOM UR LABORATORY POC Comment:000 pH Venous POCT 7.58(H) 7.32 - 7.43 05/29/2024 7:15 AM RN OPERATING ROOM UR LABORATORY POC Comment:000 O2 Sat, Venous POCT 82(H) 70 - 75 % 05/29/2024 7:15 AM RN OPERATING ROOM UR LABORATORY POC Comment:000 Base Excess/Deficit (+/-) POCT 17.0(H) -3.0 - 3.0 mmol/L 05/29/2024 7:15 AM RN OPERATING ROOM UR LABORATORY POC Comment:000 Blood, venous BLOOD SPECIMEN / Unknown 05/29/2024 7:11 AM RN OPERATING ROOM 05/29/2024 7:15 AM RN OPERATING ROOM us Provider Unknown LAB - BEAKER POCT Final Result UR LABORATORY POC [facility] Acute Care Lab [address] [place] [address], [facility] * Alcohol breath test POCT (05/29/2024 5:48 AM RN OPERATING ROOM) Alcohol Breath Test 0.00 0.00 - 0.01 UR LABORATORY POC Breath Pankaj Sidhu MD LAB - ENTER/EDIT POCT Final Result UR LABORATORY POC [facility] Lab [address] [place] [address], [facility] from Last [address] [place] [address] [place] [address] Advance Directives For more information, please contact: [phone] Documents on File Type Date Recorded 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 Advance Directives and Living Will 07/05/2024 Health Care Directiv e 06/25/2024 * Full Code (Latest Code Status on File) Date Activated Date Inactivated Comments 06/23/2024 6:26 PM 06/26/2024 12:40 PM All basic a nd advanced life-sustaining interventions are performed as appropriate Question Answer Comments Code status determined by: Discussion with patie nt/ legal decision maker * Full Code Date Activated Date Inactivated Comments 06/15/2024 1:13 AM 06/17/2024 3:00 PM All basic and advanced life-sustaining interventions are performed as appropriate Question Answer Comments Code status determined by: Discussion with patie nt/ legal decision maker * Full Code Date Activated Date Inactivated Comments 05/29/2024 9:24 AM 06/01/2024 7:15 PM All basic a nd advanced life-sustaining interventions are performed as appropriate Question Answer Comments Code status determined by: Discussion with patie nt/ legal decision maker * Full Code Date Activated Date Inactivated Comments 08/11/2023 10:23 PM 08/15/2023 8:42 PM All basic a nd advanced life-sustaining interventions are performed as appropriate Question Answer Comments Code status determined by: Discussion with patie nt/ legal decision maker * Full Code Date Activated Date Inactivated Comments 06/15/2023 7:05 PM 06/19/2023 5:39 PM All basic and advanced life-sustaining interventions are performed as appropriate Question Answer Comments Code status determined by: Discussion with patie nt/ legal decision maker Healthcare Agents on File Name Relationship Healthcare Agent Relationshi p Communication Veronica Glass Mother First Alternate Health Care Agent Suzette De La Rosa Sister Health Care Agent Larry Senait Father Second Alternate Health Care Agent Care Teams Paint Laboratory Technician Relationship Specialty Start Date End Date Deepthi Mc [address] [place] [address] PCP - General Physician Solution Design Engineer 06/15/23
--- OUTSIDE RECORDS SUMMARY | 2024-08-16 17:50 | XMS_ITS ---
Author Organization Unknown Address [address] [place], [place] [id number] Phone Care Team Providers Care Smooth Plater Name Role Phone CLAIRE TEJADA Attending Unavailable NO FAMILY PHYSICIAN Primary Unavailable Social History Type Status Start Date End Date Code Code Syst em Sex Male Hospital Discharge Instructions Should you have any questions prior to discharge, please contact a member of your healthcare team. If you have left the hospital and have any questions, please contact your primary care physician. Reason For Referral No Data Found Plan of Treatment No Data Found Encounters Encounter Diagnosis Start Date Code Code Sys tem Cyclical vomiting syndrome 10/28/2023 [id number] S NOMED-CT Personal Care Team Section Performer Name Performer Role Active Date Inactive Da te
--- OUTSIDE RECORDS SUMMARY | 2024-08-16 17:50 | XMS_ITS | Continuity of Care Document ---
Author Organization [facility] Address [address] [address] [place] [address] Phone Care Team Providers Care Hacksaw Inspector Name Role Phone Chris WINTERS, Ahmed Unavailable [...] on Encounter Init Hosp-da E&m Mod Severity [facility], [address] [address], [place], [id number], [place] tel:[phone] [facility] No Information 4 Chris Crawford. [address], [place], [id number] , [place]. [phone] Referring Provider: Lazaro Bryant MD, [address] [place], [address]. tel:[phone] [facility], [address] [address], [place], [id number], [place] tel:[phone] [facility] Gastroduodenal Dis NosAbdominal Pain, UnspecifiedWeight LossGastroduodenal Dis NosWeight LossAbdominal Pain, Unspecified 3 Dominic Nayak. [address], [place], [id number] , [place]. [phone] Referring Provider: Deepthi GUERRERO, [address] [place] [address], [address]. tel:[phone] Offic/outpt E&m New Mod-hi [facility], [address] [address], [place], [id number], [place] tel:[phone] [facility] Abdominal pain (chief complaint) Vomiting (chief complaint) Abd Pain GeneralizedNausea With Vomiting 3 Ole Soto. [address], [facility] [place], [id number] , [place]. [phone] Referring Provider: Brina Wilkins, [address] [place], [address]. tel:[phone] Family History Family Member Type Diagnosis Age [...] Disease Payers Payer name Insurance type Covered republican ID Authoriza tion(s) No Information Social History [...]
--- OUTSIDE RECORDS SUMMARY | 2024-08-16 17:50 | XMS_ITS | Clinical Summary ---
Author Organization [facility] Address [address], [place] [address] Care Team Providers Care Auto Glass Worker Name Role Phone Deepthi Mc PA-C Primary Care Provider [phone] Source Comments You are receiving this document as you are listed as the primary care provider,follow-up provider, or the patient has been referred to you for consultation.This is in compliance with the Medicare and[facility] Cent[facility]aid EHR Incentive Program,which states Providers who transition their patient to another setting of careor provider of care or refers their patient to another provider of care shouldprovide summary care record for each transition of care or referral. [facility] Allergies No known active allergies Medications Medication Sig Dispensed Refills Start Date End Date Status ondansetron (ZOFRAN-ODT) 4 MG disintegrating tablet Take 1 Tablet by mouth every 8 hours as needed for Nausea. 10 Tablet 12/27/2020 Active FLUoxetine (PROZAC) 20 MG tablet Take 20 mg by mouth daily. Active traZODone (DESYREL) 50 MG tablet Take 50 mg by mouth daily at bedtime. Active cloNIDine (CATAPRES-TTS3) 0.3 MG/24HR patch Apply 1 Patch to skin once every week. Active ondansetron (ZOFRAN) 4 MG tablet Take 4 mg by mouth every 8 hours as needed for Nausea. Active hydrOXYzine HCl (ATARAX) 25 MG tablet Take 25 mg by mouth three times a day as needed. Active buPROPion (WELLBUTRIN XL) 150 MG 24 hour release tablet Take 150 mg by mouth daily. Active acetaminophen (TYLENOL) 325 MG tablet Take 325-650 mg by mouth every 4 hours as needed for Pain. Active ibuprofen (MOTRIN) 200 MG tablet Take 200-400 mg by mouth every 4 hours as needed for Pain. Active sucralfate (CARAFATE) 1 g tablet Take 1 g by mouth 4 times a day. 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 No history of withdrawal seizures or withdrawal complications. [place] admission on 03/26/20 for alcohol withdrawal and discharged on 03/28/20. Patient is interested in quitting. Has previously tried clonidine and naltrexone. Patient with history of alcohol abuse. No history of withdrawal seizures or withdrawal complications. [place] admission on 03/26/20 for alcohol withdrawal and discharged on 03/28/20. Patient is interested in quitting. Has previously tried clonidine and naltrexone. Persistent sleep disorder 10/17/2016 Insomnia 09/19/2016 Cyclical vomiting 04/04/2016 Social anxiety disorder 02/26/2016 PTSD (post-traumatic stress disorder) 05/16/2014 Generalized anxiety disorder 12/03/2013 Overview (12/26/2020): Under the care of Dr. Rafat Falcon for mental health care. [facility] . Initial intake 12/10/12 Previous Medication [...] ER visit for cyclic vomiting; hospitalization at [facility] 05/03 (72 hr hold); 12/01 at [facility] History of Suicide Attempts: no Under the care of Dr. Rafat Falcon for mental health care. [facility] . Initial intake 12/10/12 Previous Medication [...] ER visit for cyclic vomiting; hospitalization at [facility] 05/03 (72 hr hold); 12/01 at [facility] History of Suicide Attempts: no Under the care of Dr. Rafat Falcon for mental health care. [facility] . Initial intake 12/10/12 Previous Medication Trials: Paxil- caused numbness Buspar- ineffective in past- though was restarted era- 2012, restarted 02/2015 Fluoxetine- 2012- decreased libido Wellbutrin- 2012- decreased appetite ]/ weight loss Mirtazapine- 2013- increase in fatigue Zyprexa- started 11/01- initially caused grogginess and decreased focus; later caused weight gain- was tapered off of this fall of 2014 Seroquel- 04/03 Inderal- 05/03 Past Psychiatric Hospitalizations: multiple ER visit for cyclic vomiting; hospitalization at [facility] 05/03 (72 hr hold); 12/01 at [facility] History of Suicide Attempts: no Asthma 12/11/2007 Overview (12/26/2020): Patient with childhood asthma, not currently requiring any inhalers or medication. Patient with childhood asthma, not currently requiring any inhalers or medication. Encounters Date Type Department Care Team Description 06/27/2024 5:07 PM CALENDER WORKER HELPER - 06/27/2024 11:59 PM CALENDER WORKER HELPER Hospital Encounter [facility] [address] [place] [address] Cherelle Lilly MD Discharge Disposition: Home from Last 3 Months Social History Tobacco Use Types Packs/Day Years Used Date Smoking Tobacco: Every Day Cigarettes Sex and Gender Information Value Date Recorded Sex Assigned at Not on file Gender Identity Not on file Sexual Orientation Not on file Last Filed Vital Signs Vital Sign Reading Time Taken Comments Blood Pressure 165/84 08/11/2021 5:23 PM CALENDER WORKER HELPER Pulse 77 08/11/2021 5:23 PM CALENDER WORKER HELPER Temperature 36.4 C (97.5 F) 08/11/2021 5:23 PM CALENDER WORKER HELPER Respiratory Rate 20 08/11/2021 5:23 PM CALENDER WORKER HELPER Oxygen Saturation 100% 08/11/2021 5:23 PM CALENDER WORKER HELPER Inhaled Oxygen Concentration - - Weight 104.3 kg (230 lb) 08/11/2021 5:26 PM CALENDER WORKER HELPER Height 182.9 cm (6') 08/11/2021 5:26 PM CALENDER WORKER HELPER Body Mass Index 31.19 08/11/2021 5:26 PM CALENDER WORKER HELPER Plan of Treatment Health Maintenance Due Date Last Done Comments Hep C Screening (Preventive Services) 1995 Asthma ACT 1999 Pneumococcal (1 - PCV) 10/02/2001 HepA (2 of 2 - 2-dose series) 07/29/2008 01/27/2008 HIV Screening (Preventive Services) 2011 Adult Preventive Visit 10/02/2013 HepB (1) 10/02/2014 COVID-19 Vaccine ( season) 2024 11/29/2020, 11/08/2020 Influenza (#1) 2024 07/07/2020 DTaP/Tdap/Td (6 - Tdap) 03/20/2030 03/20/20 20, 01/27/2008, 03/16/2001, Additional history exists Zoster/Shingles (1 of 2) 10/02/2045 Hib Completed 06/08/1997, 07/22, 04/02/1996, Additional history exists IPV (Polio) Completed 03/16/2001, 07/22, 04/02/1996, Additional history exists HPV Vaccine Aged Out No longer eligi ble based on patient's age to complete this topic MCV4 Aged Out No longer eligi ble based on patient's age to complete this topic Care Teams Auto Glass Worker Relationship Specialty Start Date End Date Deepthi Mc PA-C [address] [place], [place] [phone] PCP - General Physician Systems Programmer 08/15/24
--- OUTSIDE RECORDS SUMMARY | 2024-08-16 17:51 | XMS_ITS | Referral Summary ---
Author Organization [facility] Address [address] [place] [address] Care Team Providers Care Flight Operations Manager Name Role Phone Elsewhere, Pcp Primary Care Provider Unavailabl e Source Comments Patient records contain information from all sites at [facility]. For routine questions regarding patient records, call [phone] during business hours, M-F 8:00 AM - 5:00 PM Central Time. Record requests for emergency care only can be directed to [phone] at any time.[facility] Allergies Active Allergy Reactions Criticality Noted Date Comments Droperidol Other (see comments) High 08/11/2023 Hives, angioedema, red skin Dystonic reaction: Pt states he gets lock jaw from medication. Haloperidol Extrapyramidal Symptoms,Shortness of breath High 01/19/2022 Dystonic reaction, Tightness in airway Medications * This document contains information received from the source organization and may not represent a complete record from that organization. prochlorperazine (COMPAZINE) 25 mg suppository Insert 25 mg into the rectum every 12 (twelve) hours as needed for vomiting. 12/03/2021 Active traZODone (DESYREL) 50 mg tablet Take 25 mg by mouth at bedtime as needed for sleep. 10/12/2020 Active amphetamine-dext roamphetamine (ADDERALL XR) 25 mg 24 hr capsule Take 1 capsule by mouth daily. 06/03/2023 Active vit27,calcium/ir on/FA (multivitamin/mi neral-) tablet Take 1 tablet by mouth daily. 10/01/2023 Active nicotine (NICODERM CQ) 21 mg/[address] 1 patch on the skin daily. 10/22/2023 Active ondansetron (ZOFRAN) 4 mg tablet Take 1 tablet (4 mg total) by mouth every 6 (six) hours as needed for nausea. 20 tablet 11/16/2023 Active LORazepam (Ativan) 0.5 mg tablet Take 0.5 mg by mouth 3 (three) times a day as needed (panic attack). Active cloNIDine (Catapres-TTS) 0.1 mg/[address] 1-2 patches on the skin once a week. 4 patch 03/30/2024 Active desvenlafaxine (Pristiq) 50 mg 24 hr tablet Take 1 tablet (50 mg total) by mouth daily. 3 tablet 03/30/2024 Active gabapentin (Neurontin) 600 mg tablet Take 1 tablet (600 mg total) by mouth 3 (three) times a day for 9 doses. 9 tablet 03/30/2024 Active hydrOXYzine (VistariL) 25 mg capsule Take 1 capsule (25 mg total) by mouth every 6 (six) hours as needed for anxiety. 12 capsule 03/30/2024 Active lisinopriL 10 mg tablet Take 1 tablet (10 mg total) by mouth daily. 3 tablet 03/30/2024 Active Active Problems Problem Noted Date Diagnosed Date Alcohol Withdrawal Syndrome 03/26/2024 Prolonged QT Interval 09/27/2023 Cannabinosis 08/28/2021 Nausea And Vomiting 07/11/2021 Somatic Symptom Disorder 07/13/2020 Major Depressive Disorder, Recurrent, Unspecifie d 07/11/2020 Cannabis Moderate Or Severe Use (Dependence) With Withdrawal 07/07/2020 Hypokalemia 07/07/2020 Hyponatremia 07/07/2020 Leukocytosis 07/07/2020 Hypertension Essential Primary 07/07/2020 Gastroesophageal Reflux Disease 07/07/2020 Attention Deficit With Hyperactivity Disorder Nicotine Dependence Cigarettes With Withdrawal 0 03/26/2020 Alcohol Moderate Or Severe U se Disorder (Dependence) With Withdrawal Uncomplicated 03/25/2020 Overview (03/27/2020): Patient with history of alcohol abuse. No history of withdrawal seizures or withdrawal complications. [place] admission on 03/26/20 for alcohol withdrawal and discharged on 03/28/20. Patient is interested in quitting. Has previously tried clonidine and naltrexone. Insomnia 09/19/2016 Cyclical Vomiting Syndrome Unrelated To Migraine 04/04/2016 Depressive Disorder 05/16/2014 Anxiety Generalized Disorder 12/03/2013 Overview (03/26/2020): Under the care of Dr. Rafat Falcon for mental health care. [facility] . Initial intake 12/10/12 Previous Medication Trials: [...] ER visit for cyclic vomiting; hospitalization at [facility] 05/03 (72 hr hold); 12/01 at [facility] History of Suicide Attempts: no Asthma 12/11/2007 Overview (03/27/2020): Patient with childhood asthma, not currently requiring any inhalers or medication. Resolved Problems Problem Noted Date Diagnosed Date Resolved Date Alcohol Withdrawal Syndrome 11/13/2023 11/16/2023 Alcohol Withdrawal Syndrome 03/26/2020 07/15/2020 Acidosis Metabolic Anion Gap 03/26/2020 03/27/2020 Immunizations Immunization Administration Dates Next Due DTP / Hib 1995 DTaP (Infanrix, Tripedia) 03/16/2001,06/08/1997, 1995 HepA Pediatric/Adolescent 01/27/2008 HepB Pediatric/Adolescent 08/16/1996,04/02/1996, 1995 HepB, Unspecified 08/16/1996,04/02/1996,11/24/18 96 Hib (HbOC) (discontinued) 06/08/1997 Hib (PRP-T) (ACTHIB, HIBERIX) 08/16/1996, 996 Hib, Unspecified 06/08/1997, 7,04/02/1996,1995 IPV 03/16/2001, 7,04/02/1996,1995 MMR 03/16/2001,06/08/1997 Polio, Unspecified 03/16/2001, 7,04/02/1996,1995 Td (Adult), adsorbed 03/20/2020 Td, (Adult) Unspecified 03/20/2020 Tdap 01/27/2008 ALINA 01/27/2008,07/21/1997 influenza vaccine quad (FLUZONE/FLUARIX) (6 months and older)(PF) 07/07/2020 Social History Tobacco Use Types Packs/Day Years Used Date Smoking Tobacco: Every Day Cigarettes 0.5 8 Smokeless Tobacco: Never Tobacco Cessation:Ready to Q uit: Not Asked; Counseling Given: Not Answered Comments:x 5 daily Alcohol Use Standard Drinks/Week Comments Yes 5 (1 standard drink = 0.6 oz pur e alcohol) 750 ml straight Vodka Daily [employer] Answer Date Recorded In the past 12 months has e [employer], [employer], oil, or water [employer] threatened to shut off services in your home? No 03/26/2024 Humiliation, Afraid, Rape, and Kick questionnair e Answer Date Recorded Within the last year, have y ou been afraid of your partner or ex-partner? No 03/26/2024 Within the last year, have y ou been humiliated or emotionally abused in other ways by your partner or ex-partner? No Within the last year, have y ou been kicked, hit, slapped, or otherwise physically hurt by your partner or ex-partner? No 03/26/2024 Within the last year, have y ou been raped or forced to have any kind of sexual activity by your partner or ex-partner? No 03/26/2024 PHQ-2 Answer Date Recorded PHQ-2 Score 5 10/22/2023 Hunger Vital Sign Answer Date Recorded Within the past 12 months, y ou worried that your food would run out before you got the money to buy more. Never true 03/26/20 24 Within the past 12 months, t he food you bought just didn't last and you didn't have money to get more. Never true 03/26/2024 PRAPARE - Transportation Answer Date Re corded In the past 12 months, has l ack of transportation kept you from medical appointments or from getting medications? No 12/2023 In the past 12 months, has l ack of transportation kept you from meetings, work, or from getting things needed for daily living? No 03/26/2024 Depression Answer Date Recor ded PHQ-9 Total Score (max 27) 14 10/21 Dental Answer Date Recorded Dental: Regular Dentist Unknown 09/14/19 21 Housing Stability Answer Date Recorded What is your living situation today? I have a [facility] place to live 03/26/2024 Sex and Gender Information Value Date Recorded Sex Assigned at Not on file Legal Sex Male 5:32 PM PERSONAL CARE WORKER Gender Identity Not on file Sexual Orientation Not on file Last Filed Vital Signs Vital Sign Reading Time Taken Comments Blood Pressure 111/68 03/31/2024 6:30 PM CDT Pulse 70 03/31/2024 6:30 PM CDT Temperature 36.7 C (98.1 F) 03/31/2024 6:30 PM CDT Respiratory Rate 18 03/31/2024 6:30 PM CDT Oxygen Saturation 100% 03/31/2024 6:30 PM CDT Inhaled Oxygen Concentration - - Weight 107 kg (235 lb 0.2 oz) 03/27/2024 8:51 AM CDT Height 185.4 cm (6' 1) 11/13/2023 5:36 PM CDT Body Mass Index 31.01 11/13/2023 5:36 PM CDT Plan of Treatment Not on file Procedures Procedure Name Priority Date/Time Associated Diagnosis Comments BASIC METABOLIC PANEL, S/P STAT 03/30/2024 1:19 PM CDT from Last 3 Months or Most Recently Relevant to Health Maintenance Results * (ABNORMAL) Basic Metabolic Panel (03/30/2024 1:19 PM CDT) Potassium, P 3.7 3.6 - 5.2 mmol/L 03/30/2024 1:43 PM CDT [facility] Sodium, P 134(L) 135 - 145 mmol/L 03/30/2024 1:43 PM CDT [facility] Chloride, P 92(L) 98 - 107 mmol/L 03/30/2024 1:43 PM CDT [facility] Bicarbonate, P 31(H) 22 - 29 mmol/L 03/30/2024 1:43 PM CDT [facility] Anion Gap, P 11 7 - 15 03/30/2024 1:43 PM CDT [facility] BUN (Blood Urea Nitrogen), P 17 8 - 24 mg/dL 03/30/2024 1:43 PM CDT [facility] Creatinine 0.93 0.74 - 1.35 mg/dL 03/30/2024 1:43 PM CDT [facility] Estimated GFR (eGFR) >90 >=60 mL/min/BSA 03/30/2024 1:43 PM CDT [facility] Comment: Estimated GFR calculated using the 2020 CKD_EPI creatinine equation. Calcium, Total, P 9.9 8.6 - 10.0 mg/dL 03/30/2024 1:43 PM CDT [facility] Glucose, P 87 70 - 140 mg/dL 03/30/2024 1:43 PM CDT [facility] Blood (Blood, Venous) 03/30/2024 1:19 PM CDT 03/30/2024 1:25 PM CDT us Yogi Daniel M.D. LAB BLOOD ADD-ON Final Result [facility] [place] [address] [place] [address], [facility] [address] [place] [address] from Last 3 Months or Most Recently Relevant to Health Maintenance Insurance [facility] Advance Directives For more information, please contact: [phone] * Full Code (Latest Code Status on File) Date Activated Date Inactivated Comments 03/26/2024 9:36 PM 03/28/2024 4:36 PM Question Answer Comments Full Code: Discussed * Full Code Date Activated Date Inactivated Comments 11/13/2023 6:10 PM 11/16/2023 8:24 PM Question Answer Comments Full Code: Discussed * Full Code Date Activated Date Inactivated Comments 10/19/2023 10:51 PM 10/22/2023 8:44 PM Question Answer Comments Full Code: Discussed * Full Code Date Activated Date Inactivated Comments 09/27/2023 10:53 PM 09/30/2023 2:26 PM Question Answer Comments Full Code: Discussed * Full Code Date Activated Date Inactivated Comments 07/12/2020 1:25 AM 07/15/2020 5:39 PM Question Answer Comments Full Code: Not Discussed Due to: Not medically appropriate Care Teams Flight Operations Manager Relationship Specialty Start Date End Date Elsewhere, Pcp PCP - General Internal Medicine 03/26/24
--- OUTSIDE RECORDS SUMMARY | 2024-08-16 17:51 | XMS_ITS | Clinical Summary ---
Author Organization [facility] Address [address] [place] [id number] Care Team Providers Care Profiling Machine Set Up Operator Name Role Phone Elsewhere, Pcp Primary Care Provider Unavailabl e Source Comments Patient records contain information from all sites at [facility]. For routine questions regarding patient records, call [phone] during business hours, M-F 8:00 AM - 5:00 PM Central Time. Record requests for emergency care only can be directed to [phone] at any time.[facility] Allergies Active Allergy Reactions Criticality Noted [...] history of withdrawal seizures or withdrawal complications. [place] admission on 03/26/20 for alcohol withdrawal and discharged on 03/28/20. Patient is interested in quitting. Has previously tried clonidine and naltrexone. Insomnia 09/19/2016 Cyclical Vomiting Syndrome Unrelated To Migraine 04/04/2016 Depressive Disorder 05/16/2014 Anxiety Generalized Disorder 12/03/2013 Overview (03/26/2020): Under the care of Dr. Rafat Falcon for mental health care. [facility] . Initial intake 12/10/12 Previous Medication Trials: [...] ER visit for cyclic vomiting; hospitalization at [facility] 05/03 (72 hr hold); 12/01 at [facility] History of Suicide Attempts: no Asthma 12/11/2007 [...] e alcohol) 750 ml straight Vodka Daily NovoPedics Answer Date Recorded In the past 12 months has e [employer], [employer], oil, or water [employer] threatened to shut off services in your [...] your living situation today? I have a [facility] place to live 03/26/2024 Sex and Gender Information Value Date Recorded Sex Assigned at Not on file Legal Sex Male 5:32 PM SOCIAL RESEARCH ASSISTANT Gender Identity Not on file Sexual Orientation [...] 11/13/2023 5:36 PM CDT Plan of Treatment Health Maintenance Due Date Last Done Comments HIV Screening 1995 Hepatitis C Screening 1995 Pneumococcal vaccine (0-49 years) (1 of 2 - PCV) 10/02/2014 Asthma Action Plan 03/26/2020 Asthma Control Test Questionnaire 03/26/2020 Asthma Management/Exacerbation Questionnaire (AMQ/AEQ) 03/26/2020 Office Visit for Blood Pressure Check / Re-check 12/28/2023 09/27/2023 Depression Monitoring (PHQ-9) 02/21/2024 10/22/2023 COVID-19 Vaccine ( season) 2024 11/28/2021, 11/29/2020, 11/08/2020 Influenza Vaccine (#1) 2024 05/17/2022, 2019 Depression Monitoring (PHQ-9 for quality tracking) 07/21/2024 Creatinine Level (Kidney Function Test) 03/30/2025 03/30/2024, 03/28/2024, 03/27/2024, Additional history exists Potassium Level 03/30/2025 03/30/2024, 0 02/2024, 03/27/2024, Additional history exists Sodium Level 03/30/2025 03/30/2024, 09/0 02/2024, 03/27/2024, Additional history exists DTaP,Tdap,and Td Vaccines (7 - Td or Tdap) 03/20/2030 03/20/2020, 03/20/2020, 01/27/2008, Additional history exists Hepatitis B Vaccines Completed 08/16/1996, 08/16/1996, 04/02/1996, Additional history exists IPV Vaccines Completed 03/16/2001, 02/19, 08/16/1996, Additional history exists Varicella Vaccines Completed 01/27/2008, 07/21/1997 Glucose Test for Med Monitoring Discontinued 03/30/2024, 03/28/2024, 03/27/2024, Additional history exists HPV Vaccines Aged Out No longer eligi ble based [...] Daniel M.D. LAB BLOOD ADD-ON Final Result [facility] [address] [place] [address], [place] [facility] [address] [place] [address] from Last 3 Months or Most Recently Relevant to Health Maintenance Insurance [facility] Advance Directives For more information, please contact: [phone] * Full Code (Latest Code Status on [...] Due to: Not medically appropriate Care Teams Profiling Machine Set Up Operator Relationship Specialty Start Date End Date Elsewhere, Pcp PCP - General Internal Medicine 03/26/24
--- OUTSIDE RECORDS SUMMARY | 2024-08-16 17:51 | XMS_ITS | Encounter Summary ---
Author Organization [place] Address [facility] [place] [address] Care Team Providers Care Inventory Auditor Name Role Phone Deepthi Mc Primary Care Provider [phone] Reason for Visit * Reason Comments Abdominal Pain Encounter Details Date Type Department Care Team (Late st Contact Info) Description 07/11/2024 3:18 PM [employer] - 07/11/2024 6:55 PM SUPERVISOR [employer] Emergency [facility] Emergency Department [facility] [place] [address] Clinton Franklin DO [facility] [id number] [address] [address] [place], [place] [address] Cyclic vomiting syndrome Discharge Disposition: Home or Self Care Social [...] in an abandoned building, in an overnight mcc, or couch-surfing.) Yes 06/23/2024 Are you worried [...] Sign [place] Time Taken Comments Blood Pressure 120/71 07/11/2024 6:21 PM [employer] Pulse 114 07/11/2024 6:21 PM [employer] Temperature 36.7 C (98.1 F) 07/11/2024 3:12 PM [employer] Respiratory Rate 28 07/11/2024 3:12 PM [employer] Oxygen Saturation 100% 07/11/2024 6:21 PM [employer] Inhaled Oxygen Concentration - - Weight 104.3 kg (230 lb) 07/11/2024 3:12 PM [employer] Height 182.9 cm (6') 07/11/2024 3:12 PM [employer] Body Mass Index 31.19 07/11/2024 3:12 PM [employer] documented in this encounter Discharge Instructions * Discharge Instructions* Clinton Franklin DO - 07/11/2024 6:48 PM [employer] Continue Zofran as needed for nausea. Use Tylenol as needed for any abdominal pain. If you have recurrent abdominal pain not improved with Tylenol or vomiting despite use of Zofran or develop any newsymptoms including fever return to the emergency department. [employer]OR [employer]IVETING * Attachments The following attachments cannot be sent through Care Everywhere. * Cyclic Vomiting Syndrome: General Info (Bruneian) * Nausea and Vomiting (Bruneian) documented in this encounter Medications at Time [...] as of this encounter ED Notes * Clinton Franklin, - 07/11/2024 3:29 PM CST Images from the original note were not included. EMERGENCY DEPARTMENT NOTE Name: Claudio Sapp Age/Sex: 28 year old male Evaluation Date & Time: 07/11/2024 3:18 PM PCP: Deepthi Mc ED Provider: Clinton Franklin D.O. CHIEF COMPLAINT Abdominal Pain HISTORY OF PRESENT ILLNESS Claudio Sapp is a 28 year old year old male with a relevant past history of cannabinosis, depression, insomnia, leukocytosis, ADHD, alcohol dependence with withdrawal and seizure, nicotine dependence, asthma, cyclical vomiting syndrome, GERD, hypertension, somatoform disorder, PTSD, who presentsto the ED for evaluation of abdominal pain. Patient reports that it has been 3 weeks since he last used cannabis, however, is endorsing abdominal pain at this time with at least one episode of emesis 2 days ago. He notes that his current symptoms are similar to previous episodes. He states that he is currently attending treatment for his substance use. When asked if he would like capsaicin cream, patient declined stating, I'll flail around. Patient denies any other symptoms at this time. Per chart review: Patient was last seen in this emergency department ([facility] Emergency Department) on 06/27/2024 for evaluation of an alcohol problem with vomiting. He had admitted to extensive THC use the night prior after discharge from hospital detox; history of vomiting with THC use. Patient was given zyprexa with benadryl, prophylactic protonix. Suspect symptomsat this time were due to anxiety, patient was okay with plan to discharge back to treatment. DIAGNOSIS & DISPOSITION/MEDICAL DECISION MAKING 1. Cyclic vomiting syndrome EMERGENCY DEPARTMENT COURSE 3:29 PM I met with the patient to gather history and to perform my initial exam. We discussed treatment options and the plan for care while in the Emergency Department. Triage vital signs: Differential diagnosis considered included but not limited to: 4:58 PM I rechecked with the patient who was feeling okay at this time, plan to administer Valium. White blood cell count at 18,000. Regarding abdominal tenderness: remains nontender upon exam with no localized tenderness, low suspicion for intraabdominal process including appendicitis, deferred CTimaging. Labs were obtained and reviewed by myself: Sodium 132, WBC 18.8 suspect stress induced leukocytosis demargination. Hemoglobin 10.9 stable for chronic anemia without symptoms of GI bleed including melena or hematemesis. LFTs and lipase within normal limits MDM: 6:54 PM Patient is feeling improved, he is able to take oral fluids without recurrent vomiting, serial abdominal exams remain non tender. Patient remains with mild tachycardia but is overall feeling improved and is taking oral fluids well and suspect component of anxiety as cause. Patient is currently in chemical dependency program for marijuana use and has not had use for 3 weeks. Patient wi ll be discharged to return to this facility. Return criteria discussed. He is previously prescribedZofran to use as for nausea. If recurrent abdominal pain not improved with Tylenol, vomiting despite the use of Zofran or develops any new symptoms occluding fever will return to the emergency department. Discharge Vital Signs:BP 120/71 Pulse 114 Temp 98.1 ??F (36.7 ??C) (Oral) Resp 28 Ht 1.829 m (6') Wt 104.3 kg (230 lb) SpO2 100% BMI 31.19 kg/m?? PROCEDURES: None Diagnostic studies: No orders to display Labs Ordered and Resulted from Time of ED Arrival to Time of ED Departure BASIC METABOLIC PANEL - Abnormal Result Value Sodium 132 (*) Potassium 3.9 Chloride 93 (*) Carbon Dioxide (CO2) 20 (*) Anion Gap 19 (*) Urea Nitrogen 22.7 (*) Creatinine 0.81 GFR Estimate >90 Calcium 10.9 (*) Glucose 110 (*) HEPATIC FUNCTION PANEL - Abnormal Protein Total 7.6 Albumin 5.1 Bilirubin Total 1.4 (*) Alkaline Phosphatase 89 AST 33 ALT 22 Bilirubin Direct 0.29 CBC WITH PLATELETS AND DIFFERENTIAL - Abnormal WBC Count 18.8 (*) RBC Count 4.37 (*) Hemoglobin 10.9 (*) Hematocrit 32.9 (*) MCV 75 (*) MCH 24.9 (*) MCHC 33.1 RDW 16.9 (*) Platelet Count 529 (*) % Neutrophils 82 % Lymphocytes 8 % Monocytes 9 % Eosinophils 0 % Basophils 0 % Immature Granulocytes 0 NRBCs per 100 WBC 0 Absolute Neutrophils 15.5 (*) Absolute Lymphocytes 1.6 Absolute Monocytes 1.6 (*) Absolute Eosinophils 0.0 Absolute Basophils 0.0 Absolute Immature Granulocytes 0.1 Absolute NRBCs 0.0 LIPASE - Normal Lipase 26 RBC AND PLATELET MORPHOLOGY RBC Morphology Confirmed RBC Indices Platelet Assessment Value: Automated Count Confirmed. Platelet morphology is normal. ED INTERVENTIONS Medications ketorolac (TORADOL) injection 15 mg (15 mg Intravenous $Given 07/11/24 1538) diphenhydrAMINE (BENADRYL) injection 25 mg (25 mg Intravenous $Given 07/11/24 153) diazepam (VALIUM) injection 2.5 mg (2.5 mg Intravenous $Given 07/11/24 1539) ondansetron (ZOFRAN) injection 4 mg (4 mg Intravenous $Given 07/11/24 1538) diazepam (VALIUM) tablet 5 mg (5 mg Oral $Given 07/11/24 1719) TOTAL CRITICAL CARE TIME (EXCLUDING PROCEDURES): Not applicable DISCHARGE MEDICATIONS Review of your medicines UNREVIEWED medicines. Ask your doctor about these medicines Dose / Directions Acetaminophen 325 MG Caps Dose: 650 mg Take 650 mg by mouth every 6 hours as needed (pain, fever). Refills: 0 * amphetamine-dextroamphetamine 10 MG tablet Commonly known as: ADDERALL Dose: 10 mg Take 10 mg by mouth every evening. Refills: 0 * amphetamine-dextroamphetamine 20 MG 24 hr capsule Commonly known as: ADDERALL XR Dose: 20 mg Take 20 mg by mouth every morning. Refills: 0 cloNIDine 0.1 MG/24HR WK patch Commonly known as: CATAPRES-TTS1 Dose: [address] 1 patch onto the skin once a week. Every Friday Refills: 0 desvenlafaxine 100 MG 24 hr tablet Commonly known as: PRISTIQ Dose: 100 mg Take 100 mg by mouth daily. Refills: 0 folic acid 1 MG tablet Commonly known as: FOLVITE Used for: Alcohol dependence with withdrawal with complication (H) Dose: 1 mg Take 1 tablet (1 mg) by mouth daily Refills: 0 gabapentin 600 MG tablet Commonly known as: NEURONTIN Dose: 600 mg Take 600 mg by mouth 3 times daily. Refills: 0 hydrOXYzine HCl 25 MG tablet Commonly known as: ATARAX Dose: 25 mg Take 25 mg by mouth every 6 hours as needed for anxiety. Refills: 0 lisinopril 10 MG tablet Commonly known as: ZESTRIL Dose: 10 mg Take 10 mg by mouth daily Refills: 0 LORazepam 0.5 MG tablet Commonly known as: ATIVAN Dose: 0.5 mg Take 0.5 mg by mouth daily as needed for anxiety. Refills: 0 multivitamin w/minerals tablet Used for: Alcohol dependence with withdrawal with complication (H) Dose: 1 tablet Take 1 tablet by mouth daily Refills: 0 ondansetron 4 MG tablet Commonly known as: ZOFRAN Dose: 4 mg Take 4 mg by mouth every 8 hours as needed for nausea Refills: 0 pantoprazole 40 MG EC tablet Commonly known as: PROTONIX Dose: 40 mg Take 40 mg by mouth 2 times daily. Refills: 0 prochlorperazine 25 MG suppository Commonly known as: COMPAZINE Dose: [address] 25 mg rectally every 12 hours as needed Refills: 0 ramelteon 8 MG tablet Commonly known as: ROZEREM Dose: 8 mg Take 8 mg by mouth at bedtime. Refills: 0 traZODone 50 MG tablet Commonly known as: DESYREL Dose: 50 mg Take 50 mg by mouth nightly as needed for sleep. Refills: 0 * This list has 2 medication(s) that are the same as other medications prescribed for you. Read thedirections carefully, and ask your doctor or other care provider to review them with you. DISPOSITION: Discharge Medical Decision Making At the time of my evaluation, I do not feel the patient???s symptoms are caused by sepsis I obtained additional history from these independent historians: N/A I reviewed these outside records: 06/27/2024, [facility] Emergency Department I noted these abnormal vital signs / labs: Sodium 132, WBC 18.8 suspect stress induced leukocytosis demargination. Hemoglobin 10.9 stable for chronic anemia without symptoms of GI bleed including melena or hematemesis Monitor Strip Interpretation: Sinus tachycardia 12-Lead ECG Interpretation: Sinus rhythm with significant artifact I independently reviewed the following diagnostic studies: NA I spoke to the following clinicians regard the patients care: NA My disposition decision is based on the following reasons: Discharge: I considered admission but discharged the patient after current workup and patient's clinical course in the emergency department. Not Applicable At the conclusion of the encounter I discussed the results of all of the tests and the disposition.The questions were answered. The patient or family acknowledged understanding and was agreeable with the care plan. INFORMATION SOURCE AND LIMITATIONS History/Exam limitations: None Patient information was obtained from: Patient Use of Brick Dropper: N/A REVIEW OF SYSTEMS: All other systems reviewed and are negative except as noted above in HPI. PATIENT HISTORY Past Medical History: Diagnosis Date ADD (attention deficit disorder) 02/04/2013 Alcohol dependence (H) 03/25/2020 Asthma 12/11/2007 Cannabis dependence, continuous abuse (H) 11/05/2013 Cyclical vomiting 04/04/2016 Gastroesophageal reflux disease 07/07/2020 Hypokalemia 07/07/2020 Hyponatremia 07/07/2020 Nicotine dependence 03/26/2020 Primary hypertension 07/07/2020 PTSD (post-traumatic stress disorder) 05/16/2014 Recurrent major depressive disorder (H) 07/11/2020 Social anxiety disorder 02/26/2016 Somatoform disorder 07/13/2020 Vitamin D deficiency 07/30/2011 Patient Active Problem List Diagnosis Alcohol dependence (H) Asthma ADD (attention deficit disorder) Cannabis dependence, continuous abuse (H) Cyclical vomiting Gastroesophageal reflux disease PTSD (post-traumatic stress disorder) Hypokalemia Hyponatremia Primary hypertension Recurrent major depressive disorder (H) Social anxiety disorder Somatoform disorder Vitamin D deficiency Nicotine dependence Alcohol dependence with withdrawal with complication (H) Upper GI bleed Alcohol withdrawal seizure without complication (H) Ulcer of esophagus without bleeding Nausea and vomiting, unspecified vomiting type Tachycardia, unspecified Past Surgical History: Procedure Laterality Date ESOPHAGOSCOPY, GASTROSCOPY, DUODENOSCOPY (EGD), COMBINED N/A 06/01/2024 Procedure: Esophagoscopy, gastroscopy, duodenoscopy (EGD), combined; Surgeon: Chas Cage MD; Location: [facility] PICC INSERTION - TRIPLE LUMEN Right 05/30/2024 43-3cm, Lateral brachial vein Allergies Allergen Reactions Haloperidol Shortness Of Breath Other Reaction(s): Extrapyramidal Symptoms, Dystonic reaction, Tightness in airway Droperidol Other (See Comments) Pt states he gets lock jaw from medication. OUTPATIENT MEDICATIONS Discharge Medication List as of 07/11/2024 6:51 PM Vitals: 07/11/24 1538 07/11/24 1543 07/11/24 1544 07/11/24 1821 BP: (!) 150/96 120/71 Pulse: 104 105 111 114 Resp: Temp: TempSrc: SpO2: 99% 100% 100% 100% Weight: Height: Physical Exam Constitutional: Oriented to person, place, and time. Appears well-developed and well-nourished. Cardiovascular: Normal rate, regular rhythm and normal heart sounds. Pulmonary/Chest: Normal effort and breath sounds normal. Abdominal: Soft. Bowel sounds are normal. Neurological: Alert and oriented to person, place, and time. Normal strength. No sensory deficit. No cranial nerve deficit. Skin: Skin is warm and dry. Psychiatric: Mildly anxious mood and affect. Behavior is normal. Thought content normal. DIAGNOSTICS LABORATORY FINDINGS (REVIEWED AND INTERPRETED): Labs Ordered and Resulted from Time of ED Arrival to Time of ED Departure BASIC METABOLIC PANEL - Abnormal Result Value Sodium 132 (*) Potassium 3.9 Chloride 93 (*) Carbon Dioxide (CO2) 20 (*) Anion Gap 19 (*) Urea Nitrogen 22.7 (*) Creatinine 0.81 GFR Estimate >90 Calcium 10.9 (*) Glucose 110 (*) HEPATIC FUNCTION PANEL - Abnormal Protein Total 7.6 Albumin 5.1 Bilirubin Total 1.4 (*) Alkaline Phosphatase 89 AST 33 ALT 22 Bilirubin Direct 0.29 CBC WITH PLATELETS AND DIFFERENTIAL - Abnormal WBC Count 18.8 (*) RBC Count 4.37 (*) Hemoglobin 10.9 (*) Hematocrit 32.9 (*) MCV 75 (*) MCH 24.9 (*) MCHC 33.1 RDW 16.9 (*) Platelet Count 529 (*) % Neutrophils 82 % Lymphocytes 8 % Monocytes 9 % Eosinophils 0 % Basophils 0 % Immature Granulocytes 0 NRBCs per 100 WBC 0 Absolute Neutrophils 15.5 (*) Absolute Lymphocytes 1.6 Absolute Monocytes 1.6 (*) Absolute Eosinophils 0.0 Absolute Basophils 0.0 Absolute Immature Granulocytes 0.1 Absolute NRBCs 0.0 LIPASE - Normal Lipase 26 RBC AND PLATELET MORPHOLOGY RBC Morphology Confirmed RBC Indices Platelet Assessment Value: Automated Count Confirmed. Platelet morphology is normal. IMAGING (REVIEWED AND INTERPRETED): No orders to display ECG (REVIEWED AND INTERPRETED): ECG: Performed at: 07/11/2024 15:09 HR: 110 bpm Rhythm: Sinus Alva: 63 QRS duration: 82 ms QTC: [address] changes: No ST segment elevation or depression, no T wave inversion,No Q wave Interpretation: Sinus tachycardia with significant artifact Compared to most recent ECG from: 06/27/2024 08:30, sinus tachycardia replaces sinus rhythm heart rate increased by 39 bpm I have reviewed the patient's ECG, with comments made as listed above. Please see scanned image forfull interpretation. Clinton Franklin D.O. EMERGENCY MEDICINE 07/11/24 [facility] [address] [place] [id number] Dept: [phone] Clinton Franklin DO 07/11/24 1901 [employer] * Fidelina Parrish RN - 07/11/2024 3:10 PM CST Patient presents to ED for abdominal pain and nausea. Patient states he has hyperemesis with cannabis use. Also has history of potasium issues. Patient extremely shaky in triage. Triage Assessment (Adult) Row Name 07/11/24 1510 Triage Assessment Airway WDL WDL Respiratory WDL Respiratory WDL WDL Skin Circulation/Temperature WDL Skin Circulation/Temperature WDL WDL Cardiac WDL Cardiac WDL WDL Peripheral/Neurovascular WDL Peripheral Neurovascular WDL WDL Cognitive/Neuro/Behavioral WDL Cognitive/Neuro/Behavioral WDL WDL [employer]OR [employer]IVETING documented in this encounter Plan of Treatment Not on file documented as of this encounter Procedures Procedure Name Priority Date/Time Associated Diagnosis Comments EXTRA TUBE STAT 07/11/2024 3:25 PM [employer]PER[employer]OR [employer]ING EXTRA PURPLE TOP TUBE STAT 07/11/2024 3:25 PM [employer]OR [employer]ING EXTRA GREEN TOP (LITHIUM HEPARIN) TUBE STAT 07/11/2024 3:25 PM [employer]OR [employer] RBC AND PLATELET MORPHOLOGY STAT 07/11/2024 3:25 PM [employer]PERVISOR [employer]IVETING CBC WITH PLATELETS AND DIFFERENTIAL STAT 07/11/2024 3:25 PM SUPERVISOR [employer]IVETING CBC WITH PLATELETS & DIFFERENTIAL STAT 07/11/2024 3:25 PM [employer]OR [employer]ETING LIPASE STAT 07/11/2024 3:25 PM [employer]ETING HEPATIC FUNCTION PANEL STAT 07/11/2024 3:25 PM [employer]ING BASIC METABOLIC PANEL STAT 07/11/2024 3:25 PM [employer]ET[employer] documented in this encounter Results * RBC and Platelet Morphology (07/11/2024 3:25 PM SUPERVISOR RIVETING) Pathologist [facility] RBC Morphology Confirmed RBC Indices 07/11/2024 4:32 PM [facility]OR [employer]IVETING [facility] Platelet Assessment Automated Count Confirmed. Platelet morphology is normal. Automated Count Confirmed. Platelet morphology is normal. ALBERTO 07/11/2024 4:32 PM [employer] [facility] Blood VENOUS LINE / Unknown Venipuncture / Unknown 07/11/2024 3:25 PM [employer]ETING 07/11/2024 3:30 PM [employer] Clinton Franklin DO LAB - BLOOD ORDERABLES Final R esult [facility] [address] [place] [address], [facility] * (ABNORMAL) CBC with platelets and differential (07/11/2024 3:25 PM SUPERVISOR RIVETING) [facility] WBC Count 18.8(H) 4.0 - 11.0 10e3/uL 07/11/2024 4:32 PM [facility]PERVISOR [employer]IVETING N LABORATORY RBC Count 4.37(L) 4.40 - 5.90 10e6/uL 07/11/2024 4:32 PM [facility] Hemoglobin 10.9(L) 13.3 - 17.7 g/dL 07/11/2024 4:32 PM [facility] [employer] Hematocrit 32.9(L) 40.0 - 53.0 % 07/11/2024 4:32 PM [facility] [employer] MCV 75(L) 78 - 100 fL 07/11/2024 4:32 PM [employer]ING [facility] MCH 24.9(L) 26.5 - 33.0 pg 07/11/2024 4:32 PM [facility] MCHC 33.1 31.5 - 36.5 g/dL 07/11/2024 4:32 PM [employer]ING [facility] RDW 16.9(H) 10.0 - 15.0 % 07/11/2024 4:32 PM [facility] [employer] Platelet Count 529(H) 150 - 450 10e3/uL 07/11/2024 4:32 PM [facility] [employer] % Neutrophils 82 % 07/11/2024 4:32 PM [facility] [employer] % Lymphocytes 8 % 07/11/2024 4:32 PM [facility] [employer] % Monocytes 9 % 07/11/2024 4:32 PM [facility] [employer] % Eosinophils 0 % 07/11/2024 4:32 PM [facility] [employer] % Basophils 0 % 07/11/2024 4:32 PM [facility] [employer] % Immature Granulocytes 0 % 07/11/2024 4:32 PM [facility] [employer] NRBCs per 100 WBC 0 <1 /100 024 4:32 PM [employer] [facility] Absolute Neutrophils 15.5(H) 1.6 - 8.3 10e3/uL 07/11/2024 4:32 PM [facility] [employer] Absolute Lymphocytes 1.6 0.8 - 5.3 10e3/uL 07/11/2024 4:32 PM [facility] [employer] Absolute Monocytes 1.6(H) 0.0 - 1.3 10e3/uL 07/11/2024 4:32 PM [facility] [employer] Absolute Eosinophils 0.0 0.0 - 0.7 10e3/uL 07/11/2024 4:32 PM [facility] [employer]IV[employer] [facility] Absolute Basophils 0.0 0.0 - 0.2 10e3/uL 07/11/2024 4:32 PM [facility] [employer] Absolute Immature Granulocytes 0.1 <=0.4 10e3/uL 07/11/2024 4:32 PM [facility] [employer] Absolute NRBCs 0.0 10e3/uL 07/11/2024 4:32 PM [facility] [employer] Blood VENOUS LINE / Unknown Venipuncture / Unknown 07/11/2024 3:25 PM [employer]ETING 07/11/2024 3:30 PM [employer]IVETING Clinton Gómezick DO LAB - BLOOD ORDERABLES Final R esult Performing Organization Address [facility] Co de Phone Number N LABORATORY [facility] [address] [place] [address], [facility] * Lipase (07/11/2024 3:25 PM SUPERVISOR RIVETING) [facility] Lipase 26 13 - 60 U/L 07/11/2024 3:51 PM SUPERVISOR RIVETING N LABORATORY Blood VENOUS LINE / Unknown Venipuncture / Unknown 07/11/2024 3:25 PM SUPER[employer]OR [employer]IVETING 07/11/2024 3:30 PM [employer]PERVISOR [employer]IVETING Clinton Franklin LAB - BLOOD ORDERABLES Final R [facility] Performing Organization Address [facility] de Phone Number [facility] [address] [place] [address], [facility] * (ABNORMAL) Hepatic function panel (07/11/2024 3:25 PM SUPERVISOR RIVETING) Pathologist [facility] Protein Total 7.6 6.4 - 8.3 g/dL 07/11/2024 3:51 PM [facility] [employer] Albumin 5.1 3.5 - 5.2 g/dL 07/11/2024 3:51 PM [facility] [employer] Bilirubin Total 1.4(H) <=1.2 mg/dL 07/11/2024 3:51 PM [facility] [employer] Alkaline Phosphatase 89 40 - 150 U/L 07/11/2024 3:51 PM [employer] [employer]ING [facility] AST 33 0 - 45 U/L 07/11/2024 3:51 PM [employer] ALT 22 0 - 70 U/L 07/11/2024 3:51 PM [facility] [employer] Bilirubin Direct 0.29 0.00 - 0.30 mg/dL 07/11/2024 3:51 PM [facility] Blood VENOUS LINE / Unknown Venipuncture / Unknown 07/11/2024 3:25 PM SU[employer]IVETING 07/11/2024 3:30 PM [employer]IVETING Clinton Franklin DO LAB - BLOOD ORDERABLES Final R esult [facility] [address] [place] [address], [facility] * (ABNORMAL) Basic metabolic panel (07/11/2024 3:25 PM SUPERVISOR RIVETING) Sodium 132(L) 135 - 145 mmol/L 07/11/2024 4:23 PM [facility] Potassium 3.9 3.4 - 5.3 mmol/L 07/11/2024 4:23 PM [facility] Chloride 93(L) 98 - 107 mmol/L 07/11/2024 4:23 PM [facility] Carbon Dioxide (CO2) 20(L) 22 - 29 mmol/L 07/11/2024 4:23 PM [facility] Anion Gap 19(H) 7 - 15 mmol/L 07/11/2024 4:23 PM [facility] Urea Nitrogen 22.7(H) 6.0 - 20.0 mg/dL 07/11/2024 4:23 PM [facility] Creatinine 0.81 0.67 - 1.17 mg/dL 07/11/2024 4:23 PM [facility] GFR Estimate >90 >60 mL/min/1.7 3m2 07/11/2024 4:23 PM [facility] Comment:eGFR calculated usin g 2020 CKD-EPI equation. Calcium 10.9(H) 8.8 - 10.4 mg/dL 07/11/2024 4:23 PM [facility] Comment:Reference intervals for this test were updated on 02/03/2024 to reflect our healthy population more accurately. There may be differences in the flagging of prior results with similar values performed with this method. Those prior results can be interpreted in the context of the updated reference intervals. Glucose 110(H) 70 - 99 mg/dL 07/11/2024 4:23 PM SUPERVISOR RIVETING [facility] Blood VENOUS LINE / Unknown Venipuncture / Unknown 07/11/2024 3:25 PM [employer] 07/11/2024 3:30 PM [employer] Clinton Franklin DO LAB - BLOOD ORDERABLES Final R esult Performing Organization Address [facility] Co de Phone Number [facility] [address] * Extra Purple Top Tube (07/11/2024 3:25 PM SUPERVISOR [employer]IVETING) Hold Specimen [facility] 07/11/2024 4:32 PM [employer]PERVISOR RIVETING [facility] Blood VENOUS LINE / Unknown Venipuncture / Unknown 07/11/2024 3:25 PM SUPERVISOR [employer]IVETING 07/11/2024 3:30 PM SUPERVISOR RIVETING Afshin Chisholm MD LAB - BLOOD ORDERABLES Final Result Performing Organization Address [facility] de Phone Number [facility] [address] [place] [address], [facility] * Extra Green Top ([place] Heparin) Tube (07/11/2024 3:25 PM SUPERVISOR RIVETING) Hold Specimen [facility] 07/11/2024 4:32 PM SUPERVISOR RIVETING [facility] Blood VENOUS LINE / Unknown Venipuncture / Unknown 07/11/2024 3:25 PM SUPERVISOR RIVETING 07/11/2024 3:30 PM SUPERVISOR RIVETING Afshin Chisholm MD LAB - BLOOD ORDERABLES Final Result Performing Organization Address [facility] de Phone Number [facility] [address] [place] [address], [facility] documented in this encounter Visit Diagnoses Diagnosis Cyclic vomiting syndrome Persistent vomiting documented in this encounter Administered Medications Inactive Administered Medications - up to 3 most recent administrations Medication Order MAR Action Action Date Dose Rate Site diazepam (VALIUM) injection 2.5 mg 2.5 mg, Intravenous, Administer over 1-4 Minutes, ONCE, On 07/11/24 at 1530, For 1 dose, This drug may cause significant respiratory depression. Monitor respiratory status and vital signs carefully for 1 hour after each dose. $Given 07/11/2024 3:39 PM SUPERVISOR RIVETING 2.5 mg diazepam (VALIUM) tablet 5 mg 5 mg, Oral, ONCE, On 07/11/24 at 1730, For 1 dose $Given 07/11/2024 5:19 PM SUPERVISOR RIVETING 5 mg diphenhydrAMINE (BENADRYL) injection 25 mg 25 mg, Intravenous, ONCE, On 07/11/24 at 1530, For 1 dose $Given 07/11/2024 3:39 PM SUPERVISOR RIVETING 25 mg ketorolac (TORADOL) injection 15 mg 15 mg, Intravenous, ONCE, On 07/11/24 at 1530, For 1 dose, Can cause pain on injection. If ordered intravenously (IV) : administer through a running maintenance fluid over 1 minute followed by a flush. If patient complains of pain on injection, may dilute 15-30 mg in 5 mL and push over 1 to 2 minutes. $Given 07/11/2024 3:38 PM SUPERVISOR RIVETING 15 mg ondansetron (ZOFRAN) injection 4 mg 4 mg, Intravenous, ONCE, Administer over 2-5 Minutes, On 07/11/24 at 1530, For 1 dose $Given 07/11/2024 3:38 PM SUPERVISOR RIVETING 4 mg documented in this encounter Active and Recently Administered Medications Times are shown in SUPERVISOR RIVETING. Scheduled Medication Order 07/09/2024 07/10/2024 07/11/2024 diazepam (VALIUM) injection 2.5 mg (COMPLETED) 2.5 mg, Intravenous, Administer over 1-4 Minutes, ONCE, On 07/11/24 at 1530, For 1 dose, This drug may cause significant respiratory depression. Monitor respiratory status and vital signs carefully for 1 hour after each dose. 1539 ($Given - Provi leslie: Alanna Pelayo RN) diazepam (VALIUM) tablet 5 mg (COMPLETED) 5 mg, Oral, ONCE, On 07/11/24 at 1730, For 1 dose 1719 ($Given - Provi leslie: Alanna Pelayo RN) diphenhydrAMINE (BENADRYL) injection 25 mg (COMPLETED) 25 mg, Intravenous, ONCE, On 07/11/24 at 1530, For 1 dose 1539 ($Given - Provi leslie: Alanna Pelayo, TREMAYNE) ketorolac (TORADOL) injection 15 mg (COMPLETED) 15 mg, Intravenous, ONCE, On 07/11/24 at 1530, For 1 dose, Can cause pain on injection. If ordered intravenously (IV) : administer through a running maintenance fluid over 1 minute followed by a flush. If patient complains of pain on injection, may dilute 15-30 mg in 5 mL and push over 1 to 2 minutes. 1538 ($Given - Provi leslie: Alanna Pelayo RN) ondansetron (ZOFRAN) injection 4 mg (COMPLETED) 4 mg, Intravenous, ONCE, Administer over 2-5 Minutes, On 07/11/24 at 1530, For 1 dose 1538 ($Given - Provi leslie: Alanna Pelayo RN) documented in this encounter Care Teams Inventory Auditor Relationship Specialty Start Date End Date Deepthi [address] [place] [address] PCP - General Physician Shop Service Technician 06/15/23 documented as of this encounter
--- OUTSIDE RECORDS SUMMARY | 2024-08-16 17:51 | XMS_ITS | Encounter Summary ---
Author Organization [place] [place] Address [facility] [place] [address] Care Team Providers Care Manager Fast Food Name Role Phone Rajan Mcpeace Wilkins Primary Care Provider [phone] Reason for Visit * Reason Onset Date Comments MH/CD Inpatient 12/08/2013 Encounter Details Date Type Department Care Team ([facility] st Contact Info) Description 12/08/2013 Telephone [facility] Behavioral Health Intake [address] [place] [id number] Generic, Behavioral Intake, MH/CD Inpatient Social History Tobacco Use Types Packs/Day Years Used Date Smoking Tobacco: Never Assessed Sex and Gender Information Value Date Recorded Sex Assigned at Not on file Legal Sex Male 11:22 AM CDT Gender Identity Not on file Sexual Orientation Not on file documented as of this encounter Miscellaneous Notes * Telephone Encounter - Jacob Kaia - 12/08/2013 11:23 AM CDT S: Katarzyna from [facility] calling requesting Psych bed for pt. # [phone] B: Pt was BIB mother to [facility] 12/06/13 for self induced vomiting; OCD type behavior; purging/ attempting to purge every 10-20 minutes. Does not appear to be an eating disorder pt, more OCD. Pt has hx anxiety. Katarzyna reports pt is medically stable, reports Utox positive for Marijuana only; which pt reports smoking a couple of times a day. Reports acetaminophen level and salicylate level are WNL. Pt does have OP therapist and psychiatrist. Reports pt was aggressive in the ED but has beencooperative on the medical unit. A: 72 hr hold / expires 12/09 R: After reviewing faxed clinical with RN, hold expires 3pm 12/09. Per Katarzyna, they have not pursued commitment at this time. [facility] will be unable to take him at this time. If commitment is supported by [facility], I invited Katarzyna to call back and check on bed availability. documented in this encounter Plan of Treatment Not on file documented as of this encounter Visit Diagnoses Not on filedocumented in this encounter Additional Health Concerns Infection Onset Date Last Indicated Resolved Time Rule Out C-difficile 08/13/2023 08/13/2023 024 8:43 AM HEALTH PROGRAM ANALYST documented as of this encounter Care Teams Manager Fast Food Relationship Specialty Start Date End Date Deepthi Mc [address] [place] [address] PCP - General Physician Marine Pipefitter Helper 06/15/23 documented as of this encounter
--- OUTSIDE RECORDS SUMMARY | 2024-08-16 17:51 | XMS_ITS | Referral Summary ---
Author Organization [facility] Address [address] [place] [address]. [place] [address] Care Team Providers Care Rug Scratcher Name Role Phone Deepthi Mc Claudette Primary Care Provider [phone] Encounters Date Type Department Care Team Description 07/12/2024 10:10 PM SEAFO[employer] TECHNOLOGY SPECIALIST - 07/13/2024 6:40 AM [facility] Emergency [facility] Emergency Department [address] [place] [phone] Jack Cornejo MD Mott, Sarah E, MD Nausea and vomiting, unspecified vomiting type Discharge Disposition: Home or Self Care 07/12/2024 Documentation Only [facility] [address] [facility] [address] [place] [phone] Christine Ugarte Advance Care Planning 07/11/2024 Travel 07/11/2024 3:18 PM SEAFOOD TECHNOLOGY SPECIALIST - 07/11/2024 6:55 PM [facility] Emergency [facility] Emergency Department [address] [place] [phone] Clinton Franklin DO Cyclic vomiting syndrome Discharge Disposition: Home or Self Care 07/05/2024 Documentation Only [facility] [address] [facility] [address] [place] [address] Christine Ugarte Advance Care Planning 06/27/2024 Travel 06/27/2024 8:29 AM SEAFOOD TECHNOLOGY SPECIALIST - 06/27/2024 11:56 AM SEAFOOD TECHNOLOGY SPECIALIST Emergency [facility] Emergency Department [address] [place] [phone] Ronda Ugarte MD Anxiety reaction Discharge Disposition: Home or Self Care 06/23/2024 3:12 PM SEAFOOD TECHNOLOGY SPECIALIST - 06/26/2024 10:15 AM SEAFOOD TECHNOLOGY SPECIALIST Emergency [facility] [address] [place] [phone] Yamil Espinosa MD Kelly, Ryan, MD Saadaeijahromi, Hannaneh, MD Tachycardia, unspecified (Primary Dx); Hyponatremia; Nausea and vomiting, unspecified vomiting type Discharge Disposition: IRTS - Intensive Residential Treatment Program 06/23/2024 Travel 06/14/2024 8:09 PM SEAFOOD TECHNOLOGY SPECIALIST - 06/17/2024 12:53 PM SEAFOOD TECHNOLOGY SPECIALIST Hospital Encounter [facility] [address] [place] [phone] Clinton Smith MD Mangaudis, Rachael, MD Maddury, Sai Priya, MD Tremor (Primary Dx); Alcohol withdrawal, with unspecified complication (H); Hematemesis with nausea; Tachycardia, unspecified; Upper GI bleed; Gastroesophageal reflux disease with esophagitis without hemorrhage Discharge Disposition: Home or Self Care 06/14/2024 Travel 06/01/2024 11:29 AM SEAFOOD TECHNOLOGY SPECIALIST Anesthesia Event [facility] Endoscopy [address] [place] [phone] Guzman Randall MD Kadiyala, Mamatha, MD 06/01/2024 11:00 AM SEAFOOD TECHNOLOGY SPECIALIST - 06/01/2024 11:35 AM SEAFOOD TECHNOLOGY SPECIALIST Surgery [facility] Endoscopy [address] [place] [phone] Chas Perez MD Esophagoscopy, gastroscopy, duodenoscopy (EGD), combined 05/29/2024 5:40 AM SEAFOOD TECHNOLOGY SPECIALIST - 06/01/2024 5:10 PM SEAFOOD TECHNOLOGY SPECIALIST Hospital Encounter [facility] [address] [place] [address] [place] [phone] Pankaj Sidhu MD Jones, MD Christy Thomas, Teja Wilkins MD Upper GI bleed; Alcohol withdrawal seizure without complication (H) Discharge Disposition: Home or Self Care 05/29/2024 Travel from Last 3 Months Allergies Active Allergy Reactions Criticality Noted Date [...] history of withdrawal seizures or withdrawal complications. [place] admission on 03/26/20 for alcohol withdrawal and discharged on 03/28/20. Patient is interested in quitting. Has previously tried clonidine and naltrexone. Patient with history of alcohol abuse. No history of withdrawal seizures or withdrawal complications. [place] admission on 03/26/20 for alcohol withdrawal and discharged on 03/28/20. Patient is interested in quitting. Has previously tried clonidine and naltrexone. Patient with history of alcohol abuse. No history of withdrawal seizures or withdrawal complications. [place] admission on 03/26/20 for alcohol withdrawal and discharged on 03/28/20. Patient is interested in quitting. Has previously tried clonidine and naltrexone. Cyclical vomiting 04/04/2016 Social anxiety disorder 02/26/2016 PTSD (post-traumatic stress disorder) 05/16/2014 Overview (07/15/2021): Under the care of Dr. Rafat Falcon for mental health care. [facility] . Initial intake 12/10/12 Previous Medication Trials: [...] visit for cyclic vomiting; hospitalization at [facility] 05/03 (72 hr hold); 12/[address] [facility] History of Suicide Attempts: no Under the care of Dr. Rafat Falcon for mental health care. [facility] . Initial intake 12/10/12 Previous Medication Trials: Paxil- caused numbness Buspar- ineffective in past- though was restarted ttera- 2012, restarted 02/2015 Fluoxetine- 2012- decreased libido Wellbutrin- 2012- decreased appetite ]/ weight loss Mirtazapine- 2013- increase in fatigue Zyprexa- started 11/01- initially caused grogginess and decreased focus; later caused weight gain- was tapered off of this fall of 2014 Seroquel- 04/03 Inderal- 05/03 Past Psychiatric Hospitalizations: multiple ER visit for cyclic vomiting; hospitalization at [facility] 05/03 (72 hr hold); 12/[address] [facility] History of Suicide Attempts: no Under the care of Dr. Rafat Falcon for mental health care. [facility] . Initial intake 12/10/12 Previous Medication Trials: Paxil- caused numbness Buspar- ineffective in past- though was restarted Stra- 2012, restarted 02/2015 Fluoxetine- 2012- decreased libido Wellbutrin- 2012- decreased appetite ]/ weight loss Mirtazapine- 2013- increase in fatigue Zyprexa- started 11/01- initially caused grogginess and decreased focus; later caused weight gain- was tapered off of this fall Seroquel- 04/03 Inderal- 05/03 Past Psychiatric Hospitalizations: multiple ER visit for cyclic vomiting; hospitalization at [facility] 05/03 (72 hr hold); 12/[address] [facility] History of Suicide Attempts: no Under the care of Dr. Rafat Falcon for mental health care. [facility] . Initial intake 12/10/12 Previous Medication Trials: Paxil- caused numbness Buspar- ineffective in past- though was restarted - 2012, restarted 02/2015 Fluoxetine- 2012- decreased libido Wellbutrin- 2012- decreased appetite ]/ weight loss Mirtazapine- 2013- increase in fatigue Zyprexa- started 11/01- initially caused grogginess and decreased focus; later caused weight gain- was tapered off of this fall Seroquel- 04/03 Inderal- 05/03 Past Psychiatric Hospitalizations: multiple ER visit for cyclic vomiting; hospitalization at [facility] 05/03 (72 hr hold); 12/[address] [facility] History of Suicide Attempts: no Under the care of Dr. Rafat Falcon for mental health care. [facility] . Initial intake 12/10/12 Previous Medication Trials: Paxil- caused numbness Buspar- ineffective in past- though was restarted - 2012, restarted 02/2015 Fluoxetine- 2012- decreased libido Wellbutrin- 2012- decreased appetite ]/ weight loss Mirtazapine- 2013- increase in fatigue Zyprexa- started 11/01- initially caused grogginess and decreased focus; later caused weight gain- was tapered off of this fall of 2014 Seroquel- 04/03 Inderal- 10/14 Past Psychiatric Hospitalizations: multiple ER visit for cyclic vomiting; hospitalization at [facility] 05/03 (72 hr hold); 12/[address] [facility] History of Suicide Attempts: no Under the care of Dr. Rafat Falcon for mental health care. [facility] . Initial intake 12/10/12 Previous Medication Trials: [...] visit for cyclic vomiting; hospitalization at [facility] 05/03 (72 hr hold); 12/[address] [facility] History of Suicide Attempts: no Under the care of Dr. Rafat Falcon for mental health care. [facility] . Initial intake 12/10/12 Previous Medication Trials: [...] visit for cyclic vomiting; hospitalization at [facility] 05/03 (72 hr hold); 12/[address] [facility] History of Suicide Attempts: no Cannabis [...] complication 06/14/2024 06/17/2024 Hematemesis with nausea 06/14/202405/22 Social History Tobacco Use Types Packs/Day Years [...] in an abandoned building, in an overnight [place] [facility], or couch-surfing.) Yes 06/23/2024 Are you worried [...] Comments Blood Pressure 122/60 07/13/2024 6:16 AM SEAFOOD TECHNOLOGY SPECIALIST Pulse 117 07/12/2024 10:01 PM SEAFOOD TECHNOLOGY SPECIALIST Temperature 36.7 C (98.1 F) 07/12/2024 10:01 PM SEAFOOD TECHNOLOGY SPECIALIST Respiratory Rate 30 07/12/2024 10:01 PM SEAFOOD TECHNOLOGY SPECIALIST Oxygen Saturation 100% 07/12/2024 10:01 PM SEAFOOD TECHNOLOGY SPECIALIST Inhaled Oxygen Concentration - - Weight 98.9 kg (218 lb) 07/12/2024 10:01 PM SEAFOOD TECHNOLOGY SPECIALIST Height 182.9 cm (6') 07/11/2024 3:12 PM SEAFOOD TECHNOLOGY SPECIALIST Body Mass Index 29.57 07/11/2024 3:12 PM SEAFOOD TECHNOLOGY SPECIALIST Plan of Treatment Not on file Procedures Procedure Name Priority Date/Time Associated Diagnosis Comments ROUTINE UA WITH MICROSCOPIC REFLEX TO CULTURE STAT 07/13/2024 4:26 AM SEAFOOD TECHNOLOGY SPECIALIST CBC WITH PLATELETS & DIFFERENTIAL STAT 07/13/2024 1:19 AM SEAFOOD TECHNOLOGY SPECIALIST CBC WITH PLATELETS AND DIFFERENTIAL STAT 07/13/2024 1:19 AM SEAFOOD TECHNOLOGY SPECIALIST LIPASE STAT 07/13/2024 1:19 AM SEAFOOD TECHNOLOGY SPECIALIST HEPATIC FUNCTION PANEL STAT 1:19 AM SEAFOOD TECHNOLOGY SPECIALIST BASIC METABOLIC PANEL STAT 07/13/2024 1:19 AM SEAFOOD TECHNOLOGY SPECIALIST CBC WITH PLATELETS & DIFFERENTIAL STAT 07/11/2024 3:25 PM SEAFOOD TECHNOLOGY SPECIALIST RBC AND PLATELET MORPHOLOGY STAT 07/11/2024 3:25 PM SEAFOOD TECHNOLOGY SPECIALIST CBC WITH PLATELETS AND DIFFERENTIAL STAT 07/11/2024 3:25 PM SEAFOOD TECHNOLOGY SPECIALIST LIPASE STAT 07/11/2024 3:25 PM SEAFOOD TECHNOLOGY SPECIALIST HEPATIC FUNCTION PANEL STAT 3:25 PM SEAFOOD TECHNOLOGY SPECIALIST BASIC METABOLIC PANEL STAT 07/11/2024 3:25 PM SEAFOOD TECHNOLOGY SPECIALIST EXTRA PURPLE TOP TUBE STAT 07/11/2024 3:25 PM SEAFOOD TECHNOLOGY SPECIALIST EXTRA GREEN TOP (LITHIUM HEPARIN) TUBE STAT 07/11/2024 3:25 PM SEAFOOD TECHNOLOGY SPECIALIST EXTRA TUBE STAT 07/11/2024 3:25 PM SEAFOOD TECHNOLOGY SPECIALIST CBC WITH PLATELETS & DIFFERENTIAL STAT 06/27/2024 8:36 AM SEAFOOD TECHNOLOGY SPECIALIST MAGNESIUM STAT 06/27/2024 8:36 AM SEAFOOD TECHNOLOGY SPECIALIST CBC WITH PLATELETS AND DIFFERENTIAL STAT 06/27/2024 8:36 AM SEAFOOD TECHNOLOGY SPECIALIST ETHYL ALCOHOL LEVEL STAT 06/27/2024 8 :36 AM SEAFOOD TECHNOLOGY SPECIALIST LIPASE STAT 06/27/2024 8:36 AM SEAFOOD TECHNOLOGY SPECIALIST HEPATIC FUNCTION PANEL STAT 8:36 AM SEAFOOD TECHNOLOGY SPECIALIST BASIC METABOLIC PANEL STAT 06/27/2024 8:36 AM SEAFOOD TECHNOLOGY SPECIALIST EXTRA PURPLE TOP TUBE STAT 06/27/2024 8:36 AM SEAFOOD TECHNOLOGY SPECIALIST EXTRA GREEN TOP (LITHIUM HEPARIN) TUBE STAT 06/27/2024 8:36 AM SEAFOOD TECHNOLOGY SPECIALIST EXTRA TUBE STAT 06/27/2024 8:36 AM SEAFOOD TECHNOLOGY SPECIALIST EXTRA PURPLE TOP TUBE Routine 06/25/2024 8:40 AM SEAFOOD TECHNOLOGY SPECIALIST EXTRA TUBE Routine 06/25/2024 8:40 AM SEAFOOD TECHNOLOGY SPECIALIST BASIC METABOLIC PANEL Routine 06/25/2024 8:40 AM SEAFOOD TECHNOLOGY SPECIALIST DRUG CONFIRMATION PANEL URINE WITH CREAT STAT 06/24/2024 5:29 PM SEAFOOD TECHNOLOGY SPECIALIST URINE CREATININE FOR DRUG SCREEN PANEL STAT 06/24/2024 5:29 PM SEAFOOD TECHNOLOGY SPECIALIST URINE DRUG CONFIRMATION PANEL STAT 06/24/2024 5:29 PM SEAFOOD TECHNOLOGY SPECIALIST URINE DRUG SCREEN STAT 06/24/2024 5:2 8 PM SEAFOOD TECHNOLOGY SPECIALIST URINE CREATININE FOR DRUG SCREEN PANEL STAT 06/24/2024 5:28 PM SEAFOOD TECHNOLOGY SPECIALIST THC CONFIRMATION QUANTITATIVE URINE STAT 06/24/2024 5:28 PM SEAFOOD TECHNOLOGY SPECIALIST BENZODIAZEPINES, URINE, QUANTITATIVE STAT 06/24/2024 5:28 PM SEAFOOD TECHNOLOGY SPECIALIST URINE DRUG SCREEN PANEL STAT 06/24/20 5:28 PM SEAFOOD TECHNOLOGY SPECIALIST PHOSPHATIDYLETHANOL (PETH), WHOLE BLOOD Routine 06/24/2024 8:14 AM SEAFOOD TECHNOLOGY SPECIALIST CBC WITH PLATELETS Routine 06/24/2024 8: 14 AM SEAFOOD TECHNOLOGY SPECIALIST COMPREHENSIVE METABOLIC PANEL Routine 06/24/2024 8:14 AM SEAFOOD TECHNOLOGY SPECIALIST EXTRA PURPLE TOP TUBE STAT 06/23/2024 6:19 PM SEAFOOD TECHNOLOGY SPECIALIST EXTRA TUBE STAT 06/23/2024 6:19 PM SEAFOOD TECHNOLOGY SPECIALIST LACTIC ACID WHOLE BLOOD STAT 06/23/20 6:19 PM SEAFOOD TECHNOLOGY SPECIALIST ABO/RH TYPE AND SCREEN STAT 3:49 PM SEAFOOD TECHNOLOGY SPECIALIST TYPE AND SCREEN, ADULT STAT 3:49 PM SEAFOOD TECHNOLOGY SPECIALIST LACTIC ACID WHOLE BLOOD WITH 1X REPEAT IN 2 HR WHEN >2 STAT 06/23/2024 3:49 PM SEAFOOD TECHNOLOGY SPECIALIST EKG 12-LEAD, TRACING ONLY STAT 2023 3:46 PM SEAFOOD TECHNOLOGY SPECIALIST CBC WITH PLATELETS & DIFFERENTIAL STAT 06/23/2024 3:42 PM SEAFOOD TECHNOLOGY SPECIALIST PHOSPHORUS Add-On 06/23/2024 3:42 PM SEAFOOD TECHNOLOGY SPECIALIST MAGNESIUM Add-On 06/23/2024 3:42 PM SEAFOOD TECHNOLOGY SPECIALIST PHOSPHORUS STAT 06/23/2024 3:42 PM SEAFOOD TECHNOLOGY SPECIALIST CBC WITH PLATELETS AND DIFFERENTIAL STAT 06/23/2024 3:42 PM SEAFOOD TECHNOLOGY SPECIALIST MAGNESIUM STAT 06/23/2024 3:42 PM SEAFOOD TECHNOLOGY SPECIALIST INR STAT 06/23/2024 3:42 PM SEAFOOD TECHNOLOGY SPECIALIST COMPREHENSIVE METABOLIC PANEL STAT 06/23/2024 3:42 PM SEAFOOD TECHNOLOGY SPECIALIST ETHYL ALCOHOL LEVEL STAT 06/23/2024 3 :42 PM SEAFOOD TECHNOLOGY SPECIALIST EXTRA PURPLE TOP TUBE STAT 06/23/2024 3:42 PM SEAFOOD TECHNOLOGY SPECIALIST EXTRA GREEN TOP (LITHIUM HEPARIN) TUBE STAT 06/23/2024 3:42 PM SEAFOOD TECHNOLOGY SPECIALIST EXTRA RED TOP TUBE STAT 06/23/2024 3: 42 PM SEAFOOD TECHNOLOGY SPECIALIST EXTRA BLUE TOP TUBE STAT 06/23/2024 3 :42 PM SEAFOOD TECHNOLOGY SPECIALIST EXTRA TUBE STAT 06/23/2024 3:42 PM SEAFOOD TECHNOLOGY SPECIALIST CBC WITH PLATELETS & DIFFERENTIAL Routine 06/17/2024 6:35 AM SEAFOOD TECHNOLOGY SPECIALIST CBC WITH PLATELETS AND DIFFERENTIAL Routine 06/17/2024 6:35 AM SEAFOOD TECHNOLOGY SPECIALIST PHOSPHORUS Routine 06/17/2024 6:35 AM SEAFOOD TECHNOLOGY SPECIALIST MAGNESIUM Routine 06/17/2024 6:35 AM SEAFOOD TECHNOLOGY SPECIALIST COMPREHENSIVE METABOLIC PANEL Routine 06/17/2024 6:35 AM SEAFOOD TECHNOLOGY SPECIALIST POTASSIUM Timed 06/16/2024 11:47 PM SEAFOOD TECHNOLOGY SPECIALIST PHOSPHORUS Routine 06/16/2024 1:14 PM SEAFOOD TECHNOLOGY SPECIALIST POTASSIUM Timed 06/16/2024 1:14 PM SEAFOOD TECHNOLOGY SPECIALIST CBC WITH PLATELETS & DIFFERENTIAL Routine 06/16/2024 7:52 AM SEAFOOD TECHNOLOGY SPECIALIST CBC WITH PLATELETS AND DIFFERENTIAL Routine 06/16/2024 7:52 AM SEAFOOD TECHNOLOGY SPECIALIST COMPREHENSIVE METABOLIC PANEL Routine 06/16/2024 7:52 AM SEAFOOD TECHNOLOGY SPECIALIST PHOSPHORUS Routine 06/16/2024 2:24 AM SEAFOOD TECHNOLOGY SPECIALIST MAGNESIUM Routine 06/16/2024 2:24 AM SEAFOOD TECHNOLOGY SPECIALIST POTASSIUM Timed 06/16/2024 2:24 AM SEAFOOD TECHNOLOGY SPECIALIST POTASSIUM Timed 06/16/2024 1:35 AM SEAFOOD TECHNOLOGY SPECIALIST POTASSIUM Routine 06/15/2024 5:38 PM SEAFOOD TECHNOLOGY SPECIALIST TROPONIN T, HIGH SENSITIVITY Timed 06/15/2024 3:43 PM SEAFOOD TECHNOLOGY SPECIALIST ROUTINE UA WITH MICROSCOPIC REFLEX TO CULTURE STAT 06/15/2024 12:36 PM SEAFOOD TECHNOLOGY SPECIALIST EXTRA PURPLE TOP TUBE Routine 06/15/2024 11:07 AM SEAFOOD TECHNOLOGY SPECIALIST EXTRA TUBE Routine 06/15/2024 11:07 AM SEAFOOD TECHNOLOGY SPECIALIST TROPONIN T, HIGH SENSITIVITY STAT 06/15/2024 11:07 AM SEAFOOD TECHNOLOGY SPECIALIST POTASSIUM Timed 06/15/2024 11:07 AM SEAFOOD TECHNOLOGY SPECIALIST EKG 12-LEAD, TRACING ONLY STAT 2023 11:00 AM SEAFOOD TECHNOLOGY SPECIALIST CBC WITH PLATELETS & DIFFERENTIAL STAT 06/15/2024 10:08 AM SEAFOOD TECHNOLOGY SPECIALIST EXTRA GREEN TOP (LITHIUM HEPARIN) TUBE Routine 06/15/2024 10:08 AM SEAFOOD TECHNOLOGY SPECIALIST EXTRA TUBE Routine 06/15/2024 10:08 AM SEAFOOD TECHNOLOGY SPECIALIST CBC WITH PLATELETS AND DIFFERENTIAL STAT 06/15/2024 10:08 AM SEAFOOD TECHNOLOGY SPECIALIST POTASSIUM Routine 06/15/2024 7:17 AM SEAFOOD TECHNOLOGY SPECIALIST INR Timed 06/15/2024 3:56 AM SEAFOOD TECHNOLOGY SPECIALIST PHOSPHORUS Timed 06/15/2024 3:56 AM SEAFOOD TECHNOLOGY SPECIALIST MAGNESIUM Timed 06/15/2024 3:56 AM SEAFOOD TECHNOLOGY SPECIALIST COMPREHENSIVE METABOLIC PANEL Timed 06/15/2024 3:56 AM SEAFOOD TECHNOLOGY SPECIALIST PHOSPHORUS Add-On 06/14/2024 9:13 PM SEAFOOD TECHNOLOGY SPECIALIST ETHYL ALCOHOL LEVEL STAT 06/14/2024 9 :13 PM SEAFOOD TECHNOLOGY SPECIALIST EKG 12-LEAD, TRACING ONLY STAT 2023 8:56 PM SEAFOOD TECHNOLOGY SPECIALIST ABO/RH TYPE AND SCREEN STAT 8:24 PM SEAFOOD TECHNOLOGY SPECIALIST CBC WITH PLATELETS & DIFFERENTIAL STAT 06/14/2024 8:24 PM SEAFOOD TECHNOLOGY SPECIALIST TYPE AND SCREEN, ADULT STAT 8:24 PM SEAFOOD TECHNOLOGY SPECIALIST MAGNESIUM STAT 06/14/2024 8:24 PM SEAFOOD TECHNOLOGY SPECIALIST LIPASE STAT 06/14/2024 8:24 PM SEAFOOD TECHNOLOGY SPECIALIST EXTRA BLOOD BANK PURPLE TOP TUBE STAT 06/14/2024 8:24 PM SEAFOOD TECHNOLOGY SPECIALIST CBC WITH PLATELETS AND DIFFERENTIAL STAT 06/14/2024 8:24 PM SEAFOOD TECHNOLOGY SPECIALIST ETHYL ALCOHOL LEVEL STAT 06/14/2024 8 :24 PM SEAFOOD TECHNOLOGY SPECIALIST EXTRA TUBE STAT 06/14/2024 8:24 PM SEAFOOD TECHNOLOGY SPECIALIST COMPREHENSIVE METABOLIC PANEL STAT 06/14/2024 8:24 PM SEAFOOD TECHNOLOGY SPECIALIST HEMOGLOBIN Timed 06/01/2024 1:49 PM SEAFOOD TECHNOLOGY SPECIALIST UGI ENDOSCOPY DIAG W OR W/O BRUSH/WASH 06/01/2024 11:30 AM SEAFOOD TECHNOLOGY SPECIALIST Hematemesis UPPER GI ENDOSCOPY Routine 06/01/2024 11:25 AM SEAFOOD TECHNOLOGY SPECIALIST PHOSPHORUS Add-On 06/01/2024 5:41 AM SEAFOOD TECHNOLOGY SPECIALIST HEMOGLOBIN Timed 06/01/2024 5:41 AM SEAFOOD TECHNOLOGY SPECIALIST MAGNESIUM Routine 06/01/2024 5:41 AM SEAFOOD TECHNOLOGY SPECIALIST CBC WITH PLATELETS Routine 06/01/2024 5: 41 AM SEAFOOD TECHNOLOGY SPECIALIST BASIC METABOLIC PANEL Routine 06/01/2024 5:41 AM SEAFOOD TECHNOLOGY SPECIALIST HEMOGLOBIN Timed 05/31/2024 11:51 PM SEAFOOD TECHNOLOGY SPECIALIST HEMOGLOBIN Timed 05/31/2024 5:54 PM SEAFOOD TECHNOLOGY SPECIALIST PHOSPHORUS Timed 05/31/2024 5:50 PM SEAFOOD TECHNOLOGY SPECIALIST HEMOGLOBIN Timed 05/31/2024 2:39 PM SEAFOOD TECHNOLOGY SPECIALIST HEPATIC FUNCTION PANEL Add-On 5:35 AM SEAFOOD TECHNOLOGY SPECIALIST CBC WITH PLATELETS Routine 05/31/2024 5: 35 AM SEAFOOD TECHNOLOGY SPECIALIST BASIC METABOLIC PANEL Routine 05/31/2024 5:35 AM SEAFOOD TECHNOLOGY SPECIALIST MAGNESIUM Routine 05/31/2024 5:35 AM SEAFOOD TECHNOLOGY SPECIALIST PHOSPHORUS Routine 05/31/2024 5:35 AM SEAFOOD TECHNOLOGY SPECIALIST HEMOGLOBIN Timed 05/30/2024 10:41 PM SEAFOOD TECHNOLOGY SPECIALIST MAGNESIUM Routine 05/30/2024 10:41 PM SEAFOOD TECHNOLOGY SPECIALIST POTASSIUM Timed 05/30/2024 10:41 PM SEAFOOD TECHNOLOGY SPECIALIST GLUCOSE BY METER Routine 05/30/2024 10:40 PM SEAFOOD TECHNOLOGY SPECIALIST HEMOGLOBIN Timed 05/30/2024 8:19 PM SEAFOOD TECHNOLOGY SPECIALIST TRANSFUSE RED BLOOD CELLS (UNIT) STAT 05/30/2024 4:17 PM SEAFOOD TECHNOLOGY SPECIALIST PREPARE RED BLOOD CELLS (UNIT) STAT 05/30/2024 3:40 PM SEAFOOD TECHNOLOGY SPECIALIST PREPARE RED BLOOD CELLS (UNIT) Routine 05/30/2024 2:27 PM SEAFOOD TECHNOLOGY SPECIALIST PREPARE RED BLOOD CELLS (UNIT) STAT 05/30/2024 1:57 PM SEAFOOD TECHNOLOGY SPECIALIST MAGNESIUM Routine 05/30/2024 12:02 PM SEAFOOD TECHNOLOGY SPECIALIST POTASSIUM Timed 05/30/2024 12:02 PM SEAFOOD TECHNOLOGY SPECIALIST HEMOGLOBIN Timed 05/30/2024 12:02 PM SEAFOOD TECHNOLOGY SPECIALIST BASIC METABOLIC PANEL Timed 05/30/2024 12:02 PM SEAFOOD TECHNOLOGY SPECIALIST PICC TRIPLE LUMEN PLACEMENT Routine 05/30/2024 10:44 AM SEAFOOD TECHNOLOGY SPECIALIST CBC WITH PLATELETS & DIFFERENTIAL STAT 05/30/2024 5:50 AM SEAFOOD TECHNOLOGY SPECIALIST CBC WITH PLATELETS AND DIFFERENTIAL STAT 05/30/2024 5:50 AM SEAFOOD TECHNOLOGY SPECIALIST HEMOGLOBIN Timed 05/30/2024 5:50 AM SEAFOOD TECHNOLOGY SPECIALIST BASIC METABOLIC PANEL Timed 05/30/2024 5:50 AM SEAFOOD TECHNOLOGY SPECIALIST HEMOGLOBIN Timed 05/29/2024 11:55 PM SEAFOOD TECHNOLOGY SPECIALIST BASIC METABOLIC PANEL Timed 05/29/2024 11:55 PM SEAFOOD TECHNOLOGY SPECIALIST OSMOLALITY Timed 05/29/2024 5:51 PM SEAFOOD TECHNOLOGY SPECIALIST HEMOGLOBIN Timed 05/29/2024 5:51 PM SEAFOOD TECHNOLOGY SPECIALIST BASIC METABOLIC PANEL Timed 05/29/2024 5:51 PM SEAFOOD TECHNOLOGY SPECIALIST LACTIC ACID WHOLE BLOOD STAT 05/29/20 24 4:41 PM SEAFOOD TECHNOLOGY SPECIALIST HEMOGLOBIN STAT 05/29/2024 3:00 PM SEAFOOD TECHNOLOGY SPECIALIST HEMOGLOBIN STAT 05/29/2024 11:55 AM SEAFOOD TECHNOLOGY SPECIALIST BASIC METABOLIC PANEL STAT 05/29/2024 11:55 AM SEAFOOD TECHNOLOGY SPECIALIST MAGNESIUM STAT 05/29/2024 11:55 AM SEAFOOD TECHNOLOGY SPECIALIST URINE DRUG SCREEN STAT 05/29/2024 9:3 5 AM SEAFOOD TECHNOLOGY SPECIALIST FIBRINOGEN ACTIVITY STAT Add-on 05/29/2024 9 :35 AM SEAFOOD TECHNOLOGY SPECIALIST OSMOLALITY, RANDOM URINE Add-On 024 9:35 AM SEAFOOD TECHNOLOGY SPECIALIST SODIUM RANDOM URINE Add-On 05/29/2024 9 :35 AM SEAFOOD TECHNOLOGY SPECIALIST URINE DRUG SCREEN PANEL STAT 05/29/20 9:35 AM SEAFOOD TECHNOLOGY SPECIALIST INR STAT 05/29/2024 9:35 AM SEAFOOD TECHNOLOGY SPECIALIST EKG 12-LEAD, TRACING ONLY STAT 2023 7:13 AM SEAFOOD TECHNOLOGY SPECIALIST ISTAT GASES ELECTROLYTES ICA GLUCOSE VENOUS POCT STAT 05/29/2024 7:11 AM SEAFOOD TECHNOLOGY SPECIALIST ABO/RH TYPE AND SCREEN STAT 7:09 AM SEAFOOD TECHNOLOGY SPECIALIST TYPE AND SCREEN, ADULT STAT 7:09 AM SEAFOOD TECHNOLOGY SPECIALIST CBC WITH PLATELETS & DIFFERENTIAL STAT 05/29/2024 6:59 AM SEAFOOD TECHNOLOGY SPECIALIST PHOSPHORUS STAT 05/29/2024 6:59 AM SEAFOOD TECHNOLOGY SPECIALIST RBC AND PLATELET MORPHOLOGY STAT 05/29/2024 6:59 AM SEAFOOD TECHNOLOGY SPECIALIST CBC WITH PLATELETS AND DIFFERENTIAL STAT 05/29/2024 6:59 AM SEAFOOD TECHNOLOGY SPECIALIST MAGNESIUM STAT 05/29/2024 6:59 AM SEAFOOD TECHNOLOGY SPECIALIST ETHYL ALCOHOL LEVEL STAT 05/29/2024 6 :59 AM SEAFOOD TECHNOLOGY SPECIALIST LIPASE STAT 05/29/2024 6:59 AM SEAFOOD TECHNOLOGY SPECIALIST COMPREHENSIVE METABOLIC PANEL STAT 05/29/2024 6:59 AM SEAFOOD TECHNOLOGY SPECIALIST ALCOHOL BREATH TEST POCT STAT 024 5:48 AM SEAFOOD TECHNOLOGY SPECIALIST from Last 3 Months Results * (ABNORMAL) UA with Microscopic reflex to Culture (07/13/2024 4:26 AM SEAFOOD TECHNOLOGY SPECIALIST) Only the most recent of2 resultswithin the time period is included. Color Urine Light Yellow Colorless, Straw, Light Yellow, Yellow 07/13/2024 4:49 AM SEAFOOD TECHNOLOGY SPECIALIST [facility] Appearance Urine Clear Clear 07/13/20 4:49 AM SEAFOOD TECHNOLOGY SPECIALIST [facility] Glucose Urine Negative Negative mg/dL 07/13/2024 4:49 AM SEAFOOD TECHNOLOGY SPECIALIST [facility] Bilirubin Urine Negative Negative 4:49 AM SEAFOOD TECHNOLOGY SPECIALIST [facility] Ketones Urine 40(A) Negative mg/dL 07/13/2024 4:49 AM SEAFOOD TECHNOLOGY SPECIALIST [facility] Specific [place] Urine 1.017 1.001 - 1.030 07/13/2024 4:49 AM SEAFOOD TECHNOLOGY SPECIALIST [facility] Blood Urine Negative Negative 07/13/2024 4:49 AM SEAFOOD TECHNOLOGY SPECIALIST [facility] pH Urine 6.0 5.0 - 7.0 07/13/2024 4:49 AM SEAFOOD TECHNOLOGY SPECIALIST [facility] Protein Albumin Urine Negative Negative mg/dL 07/13/2024 4:49 AM SEAFOOD TECHNOLOGY SPECIALIST [facility] Urobilinogen Urine <2.0 <2.0 mg/dL 07/13/2024 4:49 AM SEAFOOD TECHNOLOGY SPECIALIST [facility] Nitrite Urine Negative Negative 07/13/2024 4:49 AM [employer]IST [facility] Leukocyte Esterase Urine Negative Negative 07/13/2024 4:49 AM [employer]IST [facility] RBC Urine 1 <=2 /HPF 07/13/2024 4:49 AM [employer]IST [facility] WBC Urine 1 <=5 /HPF 07/13/2024 4:49 AM [employer]IST [facility] Urine URINE SPECIMEN OBTAINED BY CLEAN CATCH PROCEDURE / Unknown Non-blood Collection / Unknown 07/13/2024 4:26 AM [employer]IST 07/13/2024 4:40 AM [employer]IST Narrative [facility] - 07/13/2024 4:49 AM SEAFOOD TECHNOLOGY SPECIALIST Urine Culture not indicated us Jack Cornejo MD LAB - URINE ORDERABLES Final Res ult [facility] [address] [place] [id number], [facility] * (ABNORMAL) CBC with platelets and differential (07/13/2024 1:19 AM SEAFOOD TECHNOLOGY SPECIALIST) Only the most recent of10 resultswithin the time period is included. WBC Count 13.1(H) 4.0 - 11.0 10e3/uL 07/13/2024 1:27 AM SEAFOOD TECHNOLOGY SPECIALIST [facility] RBC Count 4.08(L) 4.40 - 5.90 10e6/uL 07/13/2024 1:27 AM SEAFOOD TECHNOLOGY SPECIALIST [facility] Hemoglobin 10.2(L) 13.3 - 17.7 g/dL 07/13/2024 1:27 AM SEAFOOD TECHNOLOGY SPECIALIST [facility] Hematocrit 30.8(L) 40.0 - 53.0 % 07/13/2024 1:27 AM SEAFOOD TECHNOLOGY SPECIALIST [facility] MCV 76(L) 78 - 100 fL 07/13/2024 1:27 AM SEAFOOD TECHNOLOGY SPECIALIST [facility] MCH 25.0(L) 26.5 - 33.0 pg 07/13/2024 1:27 AM SEAFOOD TECHNOLOGY SPECIALIST [facility] MCHC 33.1 31.5 - 36.5 g/dL 07/13/2024 1:27 AM SEAFOOD TECHNOLOGY SPECIALIST [facility] RDW 17.6(H) 10.0 - 15.0 % 07/13/2024 1:27 AM SEAFOOD TECHNOLOGY SPECIALIST [facility] Platelet Count 462(H) 150 - 450 10e3/uL 07/13/2024 1:27 AM SEAFOOD TECHNOLOGY SPECIALIST [facility] % Neutrophils 73 % 07/13/2024 1:27 AM SEAFOOD TECHNOLOGY SPECIALIST [facility] % Lymphocytes 16 % 07/13/2024 1:27 AM SEAFOOD TECHNOLOGY SPECIALIST [facility] % Monocytes 11 % 07/13/2024 1:27 AM SEAFOOD TECHNOLOGY SPECIALIST [facility] % Eosinophils 0 % 07/13/2024 1:27 AM SEAFOOD TECHNOLOGY SPECIALIST [facility] % Basophils 0 % 07/13/2024 1:27 AM SEAFOOD TECHNOLOGY SPECIALIST [facility] % Immature Granulocytes 0 % 07/13/2024 1:27 AM SEAFOOD TECHNOLOGY SPECIALIST [facility] NRBCs per 100 WBC 0 <1 /100 024 1:27 AM SEAFOOD TECHNOLOGY SPECIALIST [facility] Absolute Neutrophils 9.5(H) 1.6 - 8.3 10e3/uL 07/13/2024 1:27 AM SEAFOOD TECHNOLOGY SPECIALIST [facility] Absolute Lymphocytes 2.1 0.8 - 5.3 10e3/uL 07/13/2024 1:27 AM SEAFOOD TECHNOLOGY SPECIALIST [facility] Absolute Monocytes 1.4(H) 0.0 - 1.3 10e3/uL 07/13/2024 1:27 AM [facility] Absolute Eosinophils 0.1 0.0 - 0.7 10e3/uL 07/13/2024 1:27 AM [facility] Absolute Basophils 0.0 0.0 - 0.2 10e3/uL 07/13/2024 1:27 AM [facility] Absolute Immature Granulocytes 0.1 <=0.4 10e3/uL 07/13/2024 1:27 AM SEAFOOD TECHNOLOGY SPECIALIST [facility] Absolute NRBCs 0.0 10e3/uL 07/13/2024 1:27 AM [facility] Blood BLOOD SPECIMEN / Unknown Venipuncture / Unknown 07/13/2024 1:19 AM SEAFOOD TECHNOLOGY SPECIALIST 07/13/2024 1:23 AM SEAFOOD TECHNOLOGY SPECIALIST us Jack Cornejo MD LAB - BLOOD ORDERABLES Final Res ult Performing Organization Address City/[facility]/ZIP Co de Phone Number [facility] [address] [place] [address], [facility] * Lipase (07/13/2024 1:19 AM SEAFOOD TECHNOLOGY SPECIALIST) Only the most recent of5 resultswithin the time period is included. Pathologist [facility] Lipase 27 13 - 60 U/L 07/13/2024 3:10 AM [facility] Blood BLOOD SPECIMEN / Unknown Venipuncture / Unknown 07/13/2024 1:19 AM SEAFOOD TECHNOLOGY SPECIALIST 07/13/2024 1:23 AM SEAFOOD TECHNOLOGY SPECIALIST us Jack Cornejo MD LAB - BLOOD ORDERABLES Final Res ult [facility] [address] [place] [address], [facility] * Hepatic function panel (07/13/2024 1:19 AM SEAFOOD TECHNOLOGY SPECIALIST) Only the most recent of4 resultswithin the time period is included. Protein Total 6.8 6.4 - 8.3 g/dL 07/13/2024 3:16 AM [facility] Albumin 4.4 3.5 - 5.2 g/dL 07/13/2024 3:16 AM [facility] Bilirubin Total 0.9 <=1.2 mg/dL 07/13/2024 3:16 AM [facility] Alkaline Phosphatase 78 40 - 150 U/L 07/13/2024 3:16 AM [facility] AST 07/13/2024 3:16 AM [facility] Comment:Unsatisfactory speci men - lipemic ALT 07/13/2024 3:16 AM [facility] Comment:Unsatisfactory speci men - lipemic Bilirubin Direct 07/13/20 3:16 AM [facility] Comment:Unsatisfactory speci men - lipemic Blood BLOOD SPECIMEN / Unknown Venipuncture / Unknown 07/13/2024 1:19 AM SEAFOOD TECHNOLOGY SPECIALIST 07/13/2024 1:23 AM [facility] Jack Cornejo MD LAB - BLOOD ORDERABLES Final Res ult [facility] [address] * (ABNORMAL) Basic metabolic panel (07/13/2024 1:19 AM [facility]) Only the most recent of11 resultswithin the time period is included. Sodium 127(L) 135 - 145 mmol/L 07/13/2024 3:15 AM [facility] Potassium 4.4 3.4 - 5.3 mmol/L 07/13/2024 3:15 AM [facility] Chloride 91(L) 98 - 107 mmol/L 07/13/2024 3:15 AM [facility] Carbon Dioxide (CO2) 23 22 - 29 mmol/L 07/13/2024 3:15 AM [facility] Anion Gap 13 7 - 15 mmol/L 07/13/2024 3:15 AM [facility] Urea Nitrogen 22.0(H) 6.0 - 20.0 mg/dL 07/13/2024 3:15 AM [facility] Creatinine 0.92 0.67 - 1.17 mg/dL 07/13/2024 3:15 AM [facility] GFR Estimate >90 >60 mL/min/1.7 3m2 07/13/2024 3:15 AM [facility] Comment:eGFR calculated usin g 2021 CKD-EPI equation. Calcium 9.6 8.8 - 10.4 mg/dL 07/13/2024 3:15 AM SEAFOOD TECHNOLOGY SPECIALIST [facility] Comment:Reference intervals for this test were updated on 02/03/2024 to reflect our healthy population more accurately. There may be differences in the flagging of prior results with similar values performed with this method. Those prior results can be interpreted in the context of the updated reference intervals. Glucose 91 70 - 99 mg/dL 07/13/2024 3:15 AM SEAFOOD TECHNOLOGY SPECIALIST [facility] Blood BLOOD SPECIMEN / Unknown Venipuncture / Unknown 07/13/2024 1:19 AM SEAFOOD TECHNOLOGY SPECIALIST 07/13/2024 1:23 AM SEAFOOD TECHNOLOGY SPECIALIST Jack Cornejo MD LAB - BLOOD ORDERABLES Final Res ult Performing Organization Address City/[facility]/ZIP Co de Phone Number [facility] [address] [place] [address], [facility] * Extra Purple Top Tube (07/11/2024 3:25 PM SEAFOOD TECHNOLOGY SPECIALIST) Only the most recent of6 resultswithin the time period is included. Hold Specimen [facility] 07/11/2024 4:32 PM SEAFOOD TECHNOLOGY SPECIALIST [facility] Blood VENOUS LINE / Unknown Venipuncture / Unknown 07/11/2024 3:25 PM SEAFOOD TECHNOLOGY SPECIALIST 07/11/2024 3:30 PM SEAFOOD TECHNOLOGY SPECIALIST Afshin Chisholm MD LAB - BLOOD ORDERABLES Final Result [facility] [address] [place] [address], [facility] * Extra Green Top ([place] Heparin) Tube (07/11/2024 3:25 PM SEAFOOD TECHNOLOGY SPECIALIST) Only the most recent of4 resultswithin the time period is included. Hold Specimen [facility] 07/11/2024 4:32 PM SEAFOOD TECHNOLOGY SPECIALIST [facility] Blood VENOUS LINE / Unknown Venipuncture / Unknown 07/11/2024 3:25 PM SEAFOOD TECHNOLOGY SPECIALIST 07/11/2024 3:30 PM SEAFOOD TECHNOLOGY SPECIALIST Afshin Chisholm MD LAB - BLOOD ORDERABLES Final Result Performing Organization Address [facility] de Phone Number [facility] [address] * RBC and Platelet Morphology (07/11/2024 3:25 PM SEAFOOD TECHNOLOGY SPECIALIST) Only the most recent of2 resultswithin the time period is included. RBC Morphology Confirmed RBC Indices 07/11/2024 4:32 PM SEAFOOD TECHNOLOGY SPECIALIST [facility] Platelet Assessment Automated Count Confirmed. Platelet morphology is normal. Automated Count Confirmed. Platelet morphology is normal. ALBERTO 07/11/2024 4:32 PM SEAFOOD TECHNOLOGY SPECIALIST [facility] Blood VENOUS LINE / Unknown Venipuncture / Unknown 07/11/2024 3:25 PM SEAFOOD TECHNOLOGY SPECIALIST 07/11/2024 3:30 PM SEAFOOD TECHNOLOGY SPECIALIST Clinton Franklin DO LAB - BLOOD ORDERABLES Final R esult Performing Organization Address [facility] de Phone Number [facility] [address] * Magnesium (06/27/2024 8:36 AM SEAFOOD TECHNOLOGY SPECIALIST) Only the most recent of13 resultswithin the time period is included. [facility] Magnesium 1.9 1.7 - 2.3 mg/dL 06/27/2024 9:09 AM SEAFOOD TECHNOLOGY SPECIALIST [facility] Blood BLOOD SPECIMEN / Unknown Venipuncture / Unknown 06/27/2024 8:36 AM SEAFOOD TECHNOLOGY SPECIALIST 06/27/2024 8:39 AM SEAFOOD TECHNOLOGY SPECIALIST Ronda Ugarte MD LAB - BLOOD ORDERABLES Final Re sult Performing Organization Address [facility] Co de Phone Number [facility] [address] * Ethyl Alcohol Level (06/27/2024 8:36 AM SEAFOOD TECHNOLOGY SPECIALIST) Only the most recent of5 resultswithin the time period is included. Pathologist [facility] Alcohol ethyl <0.01 <=0.01 g/dL 06/27/2024 9:09 AM SEAFOOD TECHNOLOGY SPECIALIST N [facility]ORY Blood BLOOD SPECIMEN / Unknown Venipuncture / Unknown 06/27/2024 8:36 AM SEAFOOD TECHNOLOGY SPECIALIST 06/27/2024 8:39 AM SEAFOOD TECHNOLOGY SPECIALIST us Ronda Ugarte MD LAB - BLOOD ORDERABLES Final Re sult [facility] [address] [place], [place] [address] * Urine Creatinine for Drug Screen Panel (06/24/2024 5:29 PM SEAFOOD TECHNOLOGY SPECIALIST) Only the most recent of2 resultswithin the time period is included. Creatinine Urine for Drug Screen 57 mg/dL 06/24/2024 6:26 PM SEAFOOD TECHNOLOGY SPECIALIST [facility] Comment:The reference range has not been established for creatinine in random urines. The results should be integrated into the clinical context for interpretation. Urine URINE SPECIMEN OBTAINED BY CLEAN CATCH PROCEDURE / Unknown Non-blood Collection / Unknown 06/24/2024 5:29 PM SEAFOOD TECHNOLOGY SPECIALIST 06/24/2024 5:57 PM SEAFOOD TECHNOLOGY SPECIALIST us Osmar Kitchen MD LAB - URINE ORDERABLES Final Res ult [facility] [address] [place] [address] * (ABNORMAL) Urine Drug Confirmation Panel (06/24/2024 5:29 PM SEAFOOD TECHNOLOGY SPECIALIST) Nordiazepam Present(A ) Absent 06/30/2024 1:57 PM SEAFOOD TECHNOLOGY SPECIALIST [facility] Comment:Nordiazepam is an ex pected metabolite of diazepam. Oxazepam Present(A ) Absent 06/30/2024 1:57 PM SEAFOOD TECHNOLOGY SPECIALIST [facility] Comment:Oxazepam and temazep am are benzodiazepine drugs but may also be present as common metabolites of other benzodiazepine drugs, including diazepam, temazepam. Oxazepam and temazepam are also available as scheduled prescription medications. Temazepam Present(A ) Absent 06/30/2024 1:57 PM SEAFOOD TECHNOLOGY SPECIALIST [facility] Comment:Oxazepam and temazep am are benzodiazepine drugs, but may also be present as common metabolites of other benzodiazepine drugs, including diazepam. Gabapentin (Neurontin) Present(A ) Absent 06/30/2024 1:57 PM SEAFOOD TECHNOLOGY SPECIALIST [facility] Comment:Sources of gabapenti n are prescription medications. Urine URINE SPECIMEN OBTAINED BY CLEAN CATCH PROCEDURE / Unknown Non-blood Collection / Unknown 06/24/2024 5:29 PM SEAFOOD TECHNOLOGY SPECIALIST 06/24/2024 5:57 PM SEAFOOD TECHNOLOGY SPECIALIST Narrative [facility] - 06/30/2024 1:57 PM SEAFOOD TECHNOLOGY SPECIALIST This test was developed and its performance characteristics determined by the [facility], Special Chemistry Laboratory. It has not [...] of 50 ng/mL: 7-AMINOCLONAZEPAM, 7-AMINOFLUNITRAZEPAM, ALPRAZOLAM, AMPHETAMINE, M-DK-DNUKKHUQDP, L-YY-JLHNSQJFJ, K-ZK-MIYCUSADN, BENZOYLECGONINE (Cocaine Metabolite), CLONAZEPAM, COCAETHYLENE (Cocaine Metabolite), CODEINE, DIAZEPAM, DIHYDROCODEINE, EDDP (Methadone Metabolite), HYDROCODONE, HYDROMORPHONE, LORAZEPAM, MDA (3,4-Methylenedioxyamphetamine), MDEA (3,2-Nzrtykpgnowzwg-O-ethylcathinone), MDMA (Methylenedioxyamphetamine,Ecstasy), MEPERIDINE, METHADONE, METHAMPHETAMINE, METHYLPHENIDATE (Ritalin), MORPHINE, NALTREXONE, X-BKHAKYR-KHECRMUOYX, NORCODEINE, NORDIAZEPAM, NORMEPERIDINE, V-AVA-HHVTRYHM, OXAZEPAM, OXYCODONE, OXYMORPHONE, PROPOXYPHENE, RITALINIC ACID, TAPENTADOL, TEMAZEPAM, THEBAINE, TRAMADOL The following drugs are detected with a cutoff of 100 ng/mL: GABAPENTIN, KETAMINE The following drugs are detected with a cutoff of 200 ng/mL: PREGABALIN, XYLAZINE Providers with questions surrounding testing results should contact the Clinical Chemistry service line. us Osmar Kitchen MD LAB - URINE ORDERABLES Final Res ult [facility] Special Drug/[facility] [address] [facility], [address] [place] [phone] * THC Confirmation Quantitative Urine (06/24/2024 5:28 PM SEAFOOD TECHNOLOGY SPECIALIST) [facility] THC Metabolite 358 ng/mL 07/03/2024 1:05 PM [facility] Comment: Positive cuttoff: 5 ng/mL Quantitative result is marijuana metabolite measured as 50-top-pbpcr-3-sunpqht-VRX (carboxy-THC) by liquid chromatography with mass spectrometry [...] Ratio 628 ng/mg Creat 07/03/2024 1:05 PM [facility] SPECIAL [facility] Urine URINE SPECIMEN OBTAINED BY CLEAN CATCH PROCEDURE / Unknown Non-blood Collection / Unknown 06/24/2024 5:28 PM SEAFOOD TECHNOLOGY SPECIALIST 06/24/2024 10:03 PM SEAFOOD TECHNOLOGY SPECIALIST Narrative SPECIAL DR[facility] - 07/03/2024 1:05 PM SEAFOOD TECHNOLOGY SPECIALIST This test was developed and its performance characteristics determined by the [facility], Special Chemistry Laboratory. It has not been cleared or approved by the FDA. The laboratory is regulated under CLIA as qualified to perform high-complexity testing. This test is used for clinical purposes. It should not be regarded as investigational or for research. us Osmar Kitchen MD LAB - URINE ORDERABLES Final Res ult [facility] [address] [facility], [address] [phone], [facility] * Benzodiazepines, Urine, Quantitative (06/24/2024 5:28 PM SEAFOOD TECHNOLOGY SPECIALIST) Pathologist [facility] Diazepam, Urine <20 ng/mL 6:14 PM SEAFOOD TECHNOLOGY SPECIALIST [facility] Comment:Cutoff: 20 ng/mL Oxazepam 377 ng/mL 06/28/2024 6:14 PM SEAFOOD TECHNOLOGY SPECIALIST [facility] Comment:Cutoff: 20 ng/mL Temazepam, Urn, Quant 273 ng/mL 06/28/2024 6:14 PM SEAFOOD TECHNOLOGY SPECIALIST [facility] Comment:Cutoff: 20 ng/mL Nordiazepam, Urn, Quant 262 ng/mL 06/28/2024 6:14 PM SEAFOOD TECHNOLOGY SPECIALIST [facility] Comment:Cutoff: 20 ng/mL Chlordiazepoxide, Urn, Quant <20 ng/mL 06/28/2024 6:14 PM SEAFOOD TECHNOLOGY SPECIALIST [facility] Comment:Cutoff: 20 ng/mL Lorazepam <20 ng/mL 06/28/2024 6:14 PM SEAFOOD TECHNOLOGY SPECIALIST [facility] Comment:Cutoff: 20 ng/mL Alprazolam <5 ng/mL 06/28/2024 6:14 PM SEAFOOD TECHNOLOGY SPECIALIST [facility] Comment:Cutoff: 5 ng/mL Alpha-Hydroxytriazol am, Urine 21 ng/mL 06/28/2024 6:14 PM SEAFOOD TECHNOLOGY SPECIALIST [facility] Comment:Cutoff: 5 ng/mL Clonazepam, Urine <5 ng/mL 024 6:14 PM SEAFOOD TECHNOLOGY SPECIALIST [facility] Comment:Cutoff: 5 ng/mL 7-aminoclonazepam, Urine <5 ng/mL 06/28/2024 6:14 PM SEAFOOD TECHNOLOGY SPECIALIST [facility] Comment:Cutoff: 5 ng/mL Midazolam, Urine <20 ng/mL 06/28/20 24 6:14 PM SEAFOOD TECHNOLOGY SPECIALIST [facility] Comment:Cutoff: 20 ng/mL Alpha-hydroxymidazol am, Urine <20 ng/mL 06/28/2024 6:14 PM SEAFOOD TECHNOLOGY SPECIALIST [facility] Comment: Cutoff: 20 ng/mL INTERPRETIVE INFORMATION: Benzodiazepines, [...] developed and its performance characteristics determined by [facility]. It has not been cleared or approved by the [place] Food and Drug Administration. This test was performed in a CLIA certified laboratory and is intended for clinical purposes. Performed By: [facility] [address] [place] [id number] Hand Turner: Edson Sheffield MD, PhD CLIA Number: [id number] Urine URINE SPECIMEN OBTAINED BY CLEAN CATCH PROCEDURE / Unknown Non-blood Collection / Unknown 06/24/2024 5:28 PM SEAFOOD TECHNOLOGY SPECIALIST 06/24/2024 10:03 PM SEAFOOD TECHNOLOGY SPECIALIST Osmar Kitchen MD LAB - URINE ORDERABLES Final Res ult [address] [phone], [facility] [phone] * (ABNORMAL) Urine Drug Screen Panel (06/24/2024 5:28 PM SEAFOOD TECHNOLOGY SPECIALIST) Only the most recent of2 resultswithin the time period is included. Amphetamines Urine Screen Negative Screen Negative 06/24/2024 10:03 PM SEAFOOD TECHNOLOGY SPECIALIST [facility] Comment:Cutoff for a negativ e amphetamine is less than 500 ng/mL. Barbituates Urine Screen Negative Screen Negative 06/24/2024 10:03 PM SEAFOOD TECHNOLOGY SPECIALIST [facility] Comment:Cutoff for a negativ e barbiturate is less than 200 ng/mL. Benzodiazepine Urine Screen Positive(A) Screen Negative 06/24/2024 10:03 PM SEAFOOD TECHNOLOGY SPECIALIST [facility] Comment: Cutoff for a positive benzodiazepine is 100 ng/mL or greater. This is an unconfirmed screening result to be used for medical purposes only. Cannabinoids Urine Screen Positive(A) Screen Negative 06/24/2024 10:03 PM SEAFOOD TECHNOLOGY SPECIALIST [facility] Comment: Cutoff for a positive cannabinoid is 50 ng/mL or greater. This is an unconfirmed screening result to be used for medical purposes only. Cocaine Urine Screen Negative Screen Negative 06/24/2024 10:03 PM SEAFOOD TECHNOLOGY SPECIALIST [facility] Comment:Cutoff for a negativ e cocaine is less than 300 ng/mL. Fentanyl Qual Urine Screen Negative Screen Negative 06/24/2024 10:03 PM SEAFOOD TECHNOLOGY SPECIALIST [facility] Comment:Cutoff for negative fentanyl is less than 5 ng/mL. Opiates Urine Screen Negative Screen Negative 06/24/2024 10:03 PM SEAFOOD TECHNOLOGY SPECIALIST [facility] Comment:Cutoff for a negativ e opiate is less than 300 ng/mL. PCP Urine Screen Negative Screen Negative 06/24/2024 10:03 PM SEAFOOD TECHNOLOGY SPECIALIST [facility] Comment:Cutoff for a negativ e PCP is less than 25 ng/mL. Urine URINE SPECIMEN OBTAINED BY CLEAN CATCH PROCEDURE / Unknown Non-blood Collection / Unknown 06/24/2024 5:28 PM SEAFOOD TECHNOLOGY SPECIALIST 06/24/2024 9:43 PM SEAFOOD TECHNOLOGY SPECIALIST Osmar Kitchen MD LAB - URINE ORDERABLES Final Res ult [facility] [address] [place] [phone] * Phosphatidylethanol (PEth), Whole Blood (06/24/2024 8:14 AM SEAFOOD TECHNOLOGY SPECIALIST) PEth 16:0/18:1 (POPEth) 71 ng/mL 06/26/2024 12:33 PM SEAFOOD TECHNOLOGY SPECIALIST [facility] Comment: PEth 16:0/18:1 (POPEth) Less than 10 ng/mL............Not detected Less than 20 ng/mL............Abstinence or light alcohol consumption 20 - 200 ng/mL................Moderate alcohol consumption Greater than 200 ng/mL........Heavy alcohol consumption or chronic alcohol use (Reference: Arlette Marcos and Shira Bassett 2018 J. [employer]nsic Sci) PEth 16:0/18:2 (PLPEth) 28 ng/mL 06/26/2024 12:33 PM [facility] [employer] Comment:Reference ranges are not well established. EER Phosphatidylethanol (PETH) See Note 06/26/2024 12:33 PM [facility] [employer] Comment: Authorized individuals can access the [facility] Enhanced Report using the following link: [email or web address] Interpretation See Comment 06/26/2024 12:33 PM [facility] [employer] Comment: Phosphatidylethanol (PEth) is a group of [...] developed and its performance characteristics determined by [facility]. It has not been cleared or approved by the U.S. Food and Drug Administration. This test was performed in a CLIA-certified laboratory and is intended for clinical purposes. Performed By: [facility] [address] [place] [id number] Hand Turner: Edson Sheffield MD, PhD CLIA Number: [id number] Blood BLOOD SPECIMEN / Unknown Venipuncture / Unknown 06/24/2024 8:14 AM SEAFOOD TECHNOLOGY SPECIALIST 06/24/2024 8:39 AM SEAFOOD TECHNOLOGY SPECIALIST us Osmar Kitchen MD LAB - BLOOD ORDERABLES Final Res ult [facility] [address] [place] [address], [facility] [phone] * (ABNORMAL) Comprehensive metabolic panel (06/24/2024 8:14 AM SEAFOOD TECHNOLOGY SPECIALIST) Only the most recent of7 resultswithin the time period is included. Sodium 135 135 - 145 mmol/L 06/24/2024 11:15 AM SEAFOOD TECHNOLOGY SPECIALIST [facility] Potassium 3.5 3.4 - 5.3 mmol/L 06/24/2024 11:15 AM SEAFOOD TECHNOLOGY SPECIALIST [facility] Carbon Dioxide (CO2) 27 22 - 29 mmol/L 06/24/2024 11:15 AM SEAFOOD TECHNOLOGY SPECIALIST [facility] Anion Gap 13 7 - 15 mmol/L 06/24/2024 11:15 AM SEAFOOD TECHNOLOGY SPECIALIST [facility] Urea Nitrogen 13.0 6.0 - 20.0 mg/dL 06/24/2024 11:15 AM SEAFOOD TECHNOLOGY SPECIALIST [facility] Creatinine 1.18(H) 0.67 - 1.17 mg/dL 06/24/2024 11:15 AM SEAFOOD TECHNOLOGY SPECIALIST [facility] GFR Estimate 86 >60 mL/min/1.7 3m2 06/24/2024 11:15 AM SEAFOOD TECHNOLOGY SPECIALIST [facility] Comment:eGFR calculated us2020 CKD-EPI equation. Calcium 9.4 8.8 - 10.4 mg/dL 06/24/2024 11:15 AM SEAFOOD TECHNOLOGY SPECIALIST [facility] Comment:Reference intervals for this test were updated on 02/03/2024 to reflect our healthy population more accurately. There may be differences in the flagging of prior results with similar values performed with this method. Those prior results can be interpreted in the context of the updated reference intervals. Chloride 95(L) 98 - 107 mmol/L 06/24/2024 11:15 AM SEAFOOD TECHNOLOGY SPECIALIST [facility] Glucose 111(H) 70 - 99 mg/dL 06/24/2024 11:15 AM SEAFOOD TECHNOLOGY SPECIALIST [facility] Alkaline Phosphatase 78 40 - 150 U/L 06/24/2024 11:15 AM SEAFOOD TECHNOLOGY SPECIALIST [facility] AST 15 0 - 45 U/L 06/24/2024 11:15 AM SEAFOOD TECHNOLOGY SPECIALIST [facility] ALT 15 0 - 70 U/L 06/24/2024 11:15 AM SEAFOOD TECHNOLOGY SPECIALIST [facility] Protein Total 6.2(L) 6.4 - 8.3 g/dL 06/24/2024 11:15 AM SEAFOOD TECHNOLOGY SPECIALIST [facility] Albumin 4.2 3.5 - 5.2 g/dL 06/24/2024 11:15 AM SEAFOOD TECHNOLOGY SPECIALIST [facility] Bilirubin Total 0.7 <=1.2 mg/dL 06/24/2024 11:15 AM SEAFOOD TECHNOLOGY SPECIALIST [facility] Blood BLOOD SPECIMEN / Unknown Venipuncture / Unknown 06/24/2024 8:14 AM SEAFOOD TECHNOLOGY SPECIALIST 06/24/2024 8:39 AM SEAFOOD TECHNOLOGY SPECIALIST us Dillon Euceda PA-C LAB - BLOOD ORDERABLES Final Res ult UR LABORATORY [facility] [address] [place] [phone] * (ABNORMAL) CBC with platelets (06/24/2024 8:14 AM SEAFOOD TECHNOLOGY SPECIALIST) Only the most recent of3 resultswithin the time period is included. WBC Count 9.8 4.0 - 11.0 10e3/uL 06/24/2024 8:50 AM SEAFOOD TECHNOLOGY SPECIALIST UR LABORATORY RBC Count 4.16(L) 4.40 - 5.90 10e6/uL 06/24/2024 8:50 AM SEAFOOD TECHNOLOGY SPECIALIST UR LABORATORY Hemoglobin 11.1(L) 13.3 - 17.7 g/dL 06/24/2024 8:50 AM SEAFOOD TECHNOLOGY SPECIALIST UR LABORATORY Hematocrit 33.5(L) 40.0 - 53.0 % 06/24/2024 8:50 AM SEAFOOD TECHNOLOGY SPECIALIST UR LABORATORY MCV 81 78 - 100 fL 06/24/2024 8:50 AM SEAFOOD TECHNOLOGY SPECIALIST UR LABORATORY MCH 26.7 26.5 - 33.0 pg 06/24/2024 8:50 AM SEAFOOD TECHNOLOGY SPECIALIST UR LABORATORY MCHC 33.1 31.5 - 36.5 g/dL 06/24/2024 8:50 AM SEAFOOD TECHNOLOGY SPECIALIST UR LABORATORY RDW 16.2(H) 10.0 - 15.0 % 06/24/2024 8:50 AM SEAFOOD TECHNOLOGY SPECIALIST UR LABORATORY Platelet Count 472(H) 150 - 450 10e3/uL 06/24/2024 8:50 AM SEAFOOD TECHNOLOGY SPECIALIST UR LABORATORY Blood BLOOD SPECIMEN / Unknown Venipuncture / Unknown 06/24/2024 8:14 AM SEAFOOD TECHNOLOGY SPECIALIST 06/24/2024 8:39 AM SEAFOOD TECHNOLOGY SPECIALIST Dillon Euceda PA-C LAB - BLOOD ORDERABLES Final Res ult UR LABORATORY [facility] Lab [address], [address] [place] [address] * Lactic acid whole blood (06/23/2024 6:19 PM SEAFOOD TECHNOLOGY SPECIALIST) Only the most recent of2 resultswithin the time period is included. Lactic Acid 1.1 0.7 - 2.0 mmol/L 06/23/2024 6:31 PM SEAFOOD TECHNOLOGY SPECIALIST [facility] LABORATORY Blood STRUCTURE OF RIGHT UPPER LIMB / Unknown Venipuncture / Unknown 06/23/2024 6:19 PM SEAFOOD TECHNOLOGY SPECIALIST 06/23/2024 6:27 PM SEAFOOD TECHNOLOGY SPECIALIST Yamil Espinosa MD LAB - BLOOD ORDERABLES Final R esult [facility]U LABORATORY [facility] Core Lab [address] [facility], [address] [place] [address] * (ABNORMAL) Lactic acid whole blood with 1x repeat in 2 hr when >2 (06/23/2024 3:49 PM SEAFOOD TECHNOLOGY SPECIALIST) Lactic Acid, Initial 2.2(H) 0.7 - 2.0 mmol/L 06/23/2024 4:11 PM SEAFOOD TECHNOLOGY SPECIALIST [facility] LAB[facility] Blood BLOOD SPECIMEN / Unknown Venipuncture / Unknown 06/23/2024 3:49 PM SEAFOOD TECHNOLOGY SPECIALIST 06/23/2024 3:59 PM SEAFOOD TECHNOLOGY SPECIALIST Yamil Espinosa MD LAB - BLOOD ORDERABLES Final R esult [facility] LABORATORY [facility] Core Lab [address] [facility] [address], [address] [place] [phone] * Adult Type and Screen (06/23/2024 3:49 PM SEAFOOD TECHNOLOGY SPECIALIST) Only the most recent of3 resultswithin the time period is included. ABO/RH(D) B POS 06/23/2024 3:38 PM SEAFOOD TECHNOLOGY SPECIALIST U BLOOD BANK Antibody Screen Negative Negative 06/23/2024 3:38 PM SEAFOOD TECHNOLOGY SPECIALIST U BLOOD BANK SPECIMEN EXPIRATION DATE [id number] 06/23/2024 3:38 PM SEAFOOD TECHNOLOGY SPECIALIST BLOOD BANK Blood BLOOD SPECIMEN / Unknown Venipuncture / Unknown 06/23/2024 3:49 PM SEAFOOD TECHNOLOGY SPECIALIST 06/23/2024 3:59 PM SEAFOOD TECHNOLOGY SPECIALIST us Yamil Espinosa MD LAB - BLOOD BANK TEST ORDER Fi nal Result Performing Organization Address [facility] Co de Phone Number BLOOD BANK [address] [place] [address] * EKG 12-lead, tracing only (06/23/2024 3:46 PM SEAFOOD TECHNOLOGY SPECIALIST) Only the most recent of4 resultswithin the time period is included. Pathologist [facility] Systolic Blood Pressure mmHg RADIOLOGY RESULTS Diastolic Blood Pressure mmHg RADIOLOGY RESULTS Ventricular Rate 90 BPM RAD IOLOGY RESULTS Atrial Rate 90 BPM RADIOLOG Y RESULTS NH Interval 136 ms RADIOLOG Y RESULTS QRS Duration 84 ms RADIOLO GY RESULTS QT 384 ms RADIOLOGY RESULTS QTc 469 ms RADIOLOGY RESULTS P [place] 80 degrees RADIOLOGY RESULTS R AXIS 55 degrees RADIOLOGY RESULTS T [place] 52 degrees RADIOLOGY RESULTS Interpretation ECG Sinus rhythm Normal ECG Unconfirmed report - interpretation of this ECG is computer generated - see medical record for final interpretation Confirmed by - EMERGENCY ROOM, PHYSICIAN ([id number]), acquisition editor CORRINA COSTELLO ([id number]) on 06/24/2024 7:43:56 AM RADIOLOGY RESULTS 06/23/2024 3:46 PM SEAFOOD TECHNOLOGY SPECIALIST 06/24/2024 7:43 AM SEAFOOD TECHNOLOGY SPECIALIST us Yamil Espinosa MD ECG ORDERABLES Edited Result - Final RADIOLOGY RESULTS * Extra Red Top Tube (06/23/2024 3:42 PM SEAFOOD TECHNOLOGY SPECIALIST) Hold Specimen [facility] 06/23/2024 5:02 PM SEAFOOD TECHNOLOGY SPECIALIST U LABORATORY Blood STRUCTURE OF LEFT UPPER LIMB / Unknown Venipuncture / Unknown 06/23/2024 3:42 PM SEAFOOD TECHNOLOGY SPECIALIST 06/23/2024 4:00 PM SEAFOOD TECHNOLOGY SPECIALIST Adam Barros DO LAB - BLOOD ORDERABLES Fi nal Result Performing Organization Address City/[facility]/ZIP Co de Phone Number U LABORATORY [facility] Core Lab [address] [facility], [address] * Extra Blue Top Tube (06/23/2024 3:42 PM SEAFOOD TECHNOLOGY SPECIALIST) Hold Specimen [facility] 06/23/2024 5:02 PM SEAFOOD TECHNOLOGY SPECIALIST LABORATORY Blood STRUCTURE OF LEFT UPPER LIMB / Unknown Venipuncture / Unknown 06/23/2024 3:42 PM SEAFOOD TECHNOLOGY SPECIALIST 06/23/2024 4:00 PM SEAFOOD TECHNOLOGY SPECIALIST us Adam Barros DO LAB - BLOOD ORDERABLES Fi nal Result Performing Organization Address [facility] de Phone Number LABORATORY [facility] Core Lab [address] [facility], [address] * INR (06/23/2024 3:42 PM SEAFOOD TECHNOLOGY SPECIALIST) Only the most recent of3 resultswithin the time period is included. INR 1.08 0.85 - 1.15 06/23/2024 4:25 PM SEAFOOD TECHNOLOGY SPECIALIST U LABORATORY Blood STRUCTURE OF LEFT UPPER LIMB / Unknown Venipuncture / Unknown 06/23/2024 3:42 PM SEAFOOD TECHNOLOGY SPECIALIST 06/23/2024 4:00 PM SEAFOOD TECHNOLOGY SPECIALIST Yamil Espinosa MD LAB - BLOOD ORDERABLES Final R esult [facility] LABORATORY [facility] [place] Core Lab [address] [facility], [address] [phone] * Phosphorus (06/23/2024 3:42 PM SEAFOOD TECHNOLOGY SPECIALIST) Only the most recent of11 resultswithin the time period is included. Phosphorus 2.6 2.5 - 4.5 mg/dL 06/23/2024 7:44 PM SEAFOOD TECHNOLOGY SPECIALIST [facility] LABORATORY Blood STRUCTURE OF LEFT UPPER LIMB / Unknown Venipuncture / Unknown 06/23/2024 3:42 PM SEAFOOD TECHNOLOGY SPECIALIST 06/23/2024 4:00 PM SEAFOOD TECHNOLOGY SPECIALIST us Dillon Euceda PA-C LAB - BLOOD ORDERABLES Final Res ult UU LABORATORY [facility] Core Lab [address] [facility], [address] [phone] * Potassium (06/16/2024 11:47 PM SEAFOOD TECHNOLOGY SPECIALIST) Only the most recent of9 resultswithin the time period is included. Potassium 3.8 3.4 - 5.3 mmol/L 06/17/2024 12:16 AM SEAFOOD TECHNOLOGY SPECIALIST UR LABORATORY Blood STRUCTURE OF RIGHT UPPER LIMB / Unknown Venipuncture / Unknown 06/16/2024 11:47 PM SEAFOOD TECHNOLOGY SPECIALIST 06/16/2024 11:53 PM SEAFOOD TECHNOLOGY SPECIALIST us Remy Johnson MD LAB - BLOOD ORDERABLES Corie l Result UR LABORATORY [facility] Lab [address], [address] [place] [address], [facility] * Troponin T, High Sensitivity (06/15/2024 3:43 PM SEAFOOD TECHNOLOGY SPECIALIST) Only the most recent of2 resultswithin the time period is included. Troponin T, High Sensitivity 15 <=22 ng/L 06/15/2024 4:15 PM SEAFOOD TECHNOLOGY SPECIALIST UR LABORATORY Comment: Either a High Sensitivity [...] Unknown Venipuncture / Unknown 06/15/2024 3:43 PM SEAFOOD TECHNOLOGY SPECIALIST 06/15/2024 3:52 PM SEAFOOD TECHNOLOGY SPECIALIST Remy Johnson MD LAB - BLOOD ORDERABLES Corie l Result UR LABORATORY [facility] Lab [address] [place] [address], [address] * Extra Blood Bank Purple Top Tube (06/14/2024 8:24 PM SEAFOOD TECHNOLOGY SPECIALIST) Hold Specimen [facility] 06/14/2024 9:46 PM SEAFOOD TECHNOLOGY SPECIALIST UR LABORATORY Blood BLOOD SPECIMEN / Unknown Venipuncture / Unknown 06/14/2024 8:24 PM SEAFOOD TECHNOLOGY SPECIALIST 06/14/2024 8:37 PM SEAFOOD TECHNOLOGY SPECIALIST Clinton Smith MD LAB - BLOOD ORDERABLES Final Res ult UR LABORATORY [facility] [address] [place] [address], [address] * (ABNORMAL) Hemoglobin (06/01/2024 1:49 PM SEAFOOD TECHNOLOGY SPECIALIST) Only the most recent of13 resultswithin the time period is included. Hemoglobin 8.9(L) 13.3 - 17.7 g/dL 06/01/2024 2:09 PM SEAFOOD TECHNOLOGY SPECIALIST [facility]U LABORATORY Blood STRUCTURE OF RIGHT UPPER LIMB / Unknown VAD(CVC, PICC) / Unknown 06/01/2024 1:49 PM SEAFOOD TECHNOLOGY SPECIALIST 06/01/2024 1:55 PM SEAFOOD TECHNOLOGY SPECIALIST Alex Lyons MD LAB - BLOOD ORDERABLES Final Res ult LABORATORY [facility] Core Lab [address] [facility] [address], [address] [place] [address] * UPPER GI ENDOSCOPY (06/01/2024 11:25 AM SEAFOOD TECHNOLOGY SPECIALIST) Upper GI Endoscopy [facility] [address] [place] [address] [phone] Endoscopy Department ___ Patient Name: Claudio Sapp Procedure Date: 06/01/2024 11:25 AM Date of : 1995 Admit Type: Inpatient Age: 28 Room: [place] [address] Gender: Male Note Status: Finalized Attending MD: CHAS PEREZ MD, Total Sedation Time: ___ Procedure: Upper GI endoscopy Indications: Hematemesis Providers: CHAS PEREZ MD, Paul Orosco, TREMAYNE, ALEX LYONS Patient Profile: 28 year old [...] Out: RADIOLOGY RESULTS 06/01/2024 11:2 5 AM SEAFOOD TECHNOLOGY SPECIALIST us Chas Perez MD PROCEDURES Final Resul t RADIOLOGY RESULTS * (ABNORMAL) Glucose by meter (05/30/2024 10:40 PM SEAFOOD TECHNOLOGY SPECIALIST) GLUCOSE BY METER POCT 106(H) 70 - 99 mg/dL 05/30/2024 10:47 PM SEAFOOD TECHNOLOGY SPECIALIST UU LABORATORY POC Blood, venous BLOOD SPECIMEN / Unknown 05/30/2024 10:40 PM SEAFOOD TECHNOLOGY SPECIALIST 05/30/2024 10:47 PM SEAFOOD TECHNOLOGY SPECIALIST us Teja Harrison MD LAB - BEAKER POCT Final Result Performing Organization Address City/[facility]/ZIP Co de Phone Number UU LABORATORY POC [facility] Core Lab [address] [facility], [address] [place] [address] * Transfuse red blood cells (unit) (05/30/2024 8:24 PM SEAFOOD TECHNOLOGY SPECIALIST) us Joshua Berry PA-C BLOOD TRANSFUSION ORDERABLE S Final Result * Prepare red blood cells (unit) (05/30/2024 3:40 PM SEAFOOD TECHNOLOGY SPECIALIST) Blood Component Type Red Blood Cells UU BLOOD BANK Product Code [id number] UU BLOO D BANK Unit Status Transfused UU BLOO D BANK Unit Number [id number] UU B LOOD BANK CROSSMATCH Compatible UU BLOOD BANK CODING SYSTEM [id number] UU BLO OD BANK ISSUE DATE AND TIME [id number] UU BLOOD BANK UNIT ABO/RH B+ UU BLOOD BANK UNIT TYPE ISBT 7300 UU BL OOD BANK 05/30/2024 3:40 PM SEAFOOD TECHNOLOGY SPECIALIST us Joshua Berry PA-C BLOOD BANK PRODUCT ORDERABL ES Final Result Performing Organization Address City/[facility]/ZIP Co de Phone Number UU BLOOD BANK [address] [place] [address] * Triple Lumen PICC Placement (05/30/2024 10:44 AM SEAFOOD TECHNOLOGY SPECIALIST) Narrative Sukhjinder Jang RN - 05/30/2024 10:44 AM SEAFOOD TECHNOLOGY SPECIALIST Sukhjinder Jang RN 05/30/2024 10:47 AM [facility] Triple Lumen PICC Placement Date/Time: 05/30/2024 10:44 [...] the procedure a time out was called Volant Protocol: the Joint [facility] Volant Protocol was followed Preparation: Patient was prepped [...] size: 5 Fr Brand: Bard Lot number: [id number] Placement method: venipuncture, MST, ultrasound and tip [...] is in satisfactory location as verified by [employer] 3CG Tip Confirmation System. PICC is OK to use. Disposal: sharps and needle count correct at the end of procedure, needles and guidewire disposed in sharps container us Sammi Dominguez PA-C PROCEDURE/MINOR SURGICAL ORDERA BLES Final Result * Osmolality (05/29/2024 5:51 PM SEAFOOD TECHNOLOGY SPECIALIST) Osmolality Blood 279 275 - 295 mmol/kg 05/29/2024 6:40 PM SEAFOOD TECHNOLOGY SPECIALIST [facility] LABORATORY Blood STRUCTURE OF RIGHT HAND / Unknown Venipuncture / Unknown 05/29/2024 5:51 PM SEAFOOD TECHNOLOGY SPECIALIST 05/29/2024 5:56 PM SEAFOOD TECHNOLOGY SPECIALIST Narrative [facility] LABORATORY - 05/29/2024 6:40 PM SEAFOOD TECHNOLOGY SPECIALIST Greater than 385 mmol/kg relates to stupor in hyperglycemia Greater than 400 mmol/kg can relate to seizures Greater than 420 mmol/kg can be lethal Serum Osmalar Gap: Normal <10 Larger suggest unmeasured substances present in serum (ethanol, methanol, isopropanol, mannitol, ethylene glycol). us Luis Dunne PA-C LAB - BLOOD ORDERABLES F inal Result UU LABORATORY [facility] Core Lab [address] [facility], [address] [place] [phone] * Sodium random urine (05/29/2024 9:35 AM SEAFOOD TECHNOLOGY SPECIALIST) Sodium Urine mmol/L 29 mmol/L 05/29/2024 12:44 PM SEAFOOD TECHNOLOGY SPECIALIST [facility]U LABORATORY Comment:The reference ranges have not been established in urine sodium. The results should be integrated into the clinical context for interpretation. Urine URINE SPECIMEN OBTAINED BY CLEAN CATCH PROCEDURE / Unknown Non-blood Collection / Unknown 05/29/2024 9:35 AM SEAFOOD TECHNOLOGY SPECIALIST 05/29/2024 9:41 AM SEAFOOD TECHNOLOGY SPECIALIST us Luis Nicola Vibha PA-C LAB - URINE ORDERABLES F inal Result Performing Organization Address [facility] de Phone Number U LABORATORY [facility] Core Lab [address] [facility], [address] [phone] * Osmolality urine (05/29/2024 9:35 AM SEAFOOD TECHNOLOGY SPECIALIST) Osmolality Urine 294 100 - 1,200 mmol/kg 05/29/2024 1:00 PM SEAFOOD TECHNOLOGY SPECIALIST [facility] LABORATORY Urine URINE SPECIMEN OBTAINED BY CLEAN CATCH PROCEDURE / Unknown Non-blood Collection / Unknown 05/29/2024 9:35 AM SEAFOOD TECHNOLOGY SPECIALIST 05/29/2024 9:41 AM SEAFOOD TECHNOLOGY SPECIALIST Narrative [facility] LABORATORY - 05/29/2024 1:00 PM SEAFOOD TECHNOLOGY SPECIALIST Reference Ranges depend on patient's hydration status and renal function. Neonates: 75-300 mmol/kg 2 years and older, random specimens: 100-1200 mmol/kg; Greater than 850 mmol/kg after 12 hour fluid restriction Urine/serum osmolality ratio: 2 years and older: 1.0-3.0; 3.0-4.7 after 12 hour fluid restriction Luis GUERRERO-C LAB - URINE ORDERABLES F inal Result Performing Organization Address [facility] de Phone Number LABORATORY [facility] Core Lab [address] [facility], [address] [place], [place] [phone] * Fibrinogen activity (05/29/2024 9:35 AM SEAFOOD TECHNOLOGY SPECIALIST) Fibrinogen Activity 278 170 - 510 mg/dL 05/29/2024 4:48 PM SEAFOOD TECHNOLOGY SPECIALIST [facility] LABORATORY Comment:Effective 02/17/2024, the reference range for this assay has changed. There may be differences in the flagging of prior results with similar values performed with this method. Blood BLOOD SPECIMEN / Unknown Venipuncture / Unknown 05/29/2024 9:35 AM SEAFOOD TECHNOLOGY SPECIALIST 05/29/2024 9:46 AM SEAFOOD TECHNOLOGY SPECIALIST Luis GUERRERO-C LAB - BLOOD ORDERABLES F inal Result Performing Organization Address City/[facility] Co de Phone Number UU LABORATORY [facility] Core Lab [address] [facility], [address] [place] [address], [facility] * (ABNORMAL) iStat Gases Electrolytes ICA Glucose Venous, POCT (05/29/2024 7:11 AM SEAFOOD TECHNOLOGY SPECIALIST) CPB Applied No 05/29/2024 7:15 AM SEAFOOD TECHNOLOGY SPECIALIST UR LABORATORY POC Comment:000 Hematocrit POCT 45 40 - 53 % 7:15 AM SEAFOOD TECHNOLOGY SPECIALIST UR LABORATORY POC Comment:000 Calcium, Ionized Whole Blood POCT 4.2(L) 4.4 - 5.2 mg/dL 05/29/2024 7:15 AM SEAFOOD TECHNOLOGY SPECIALIST UR LABORATORY POC Comment:000 Glucose Whole Blood POCT 127(H) 70 - 99 mg/dL 05/29/2024 7:15 AM SEAFOOD TECHNOLOGY SPECIALIST UR LABORATORY POC Comment:000 Bicarbonate Venous POCT 41(H) 21 - 28 mmol/L 05/29/2024 7:15 AM SEAFOOD TECHNOLOGY SPECIALIST UR LABORATORY POC Comment:000 Hemoglobin POCT 15.3 13.3 - 17.7 g/dL 05/29/2024 7:15 AM SEAFOOD TECHNOLOGY SPECIALIST UR LABORATORY POC Comment:000 Potassium POCT 2.2(LL) 3.4 - 5.3 mmol/L 05/29/2024 7:15 AM SEAFOOD TECHNOLOGY SPECIALIST UR LABORATORY POC Comment:000 Sodium POCT 123(L) 135 - 145 mmol/L 05/29/2024 7:15 AM SEAFOOD TECHNOLOGY SPECIALIST UR LABORATORY POC Comment:000 pCO2 Venous POCT 43 40 - 50 mm Hg 05/29/2024 7:15 AM SEAFOOD TECHNOLOGY SPECIALIST UR LABORATORY POC Comment:000 pO2 Venous POCT 40 25 - 47 mm Hg 05/29/2024 7:15 AM SEAFOOD TECHNOLOGY SPECIALIST UR LABORATORY POC Comment:000 pH Venous POCT 7.58(H) 7.32 - 7.43 05/29/2024 7:15 AM SEAFOOD TECHNOLOGY SPECIALIST UR LABORATORY POC Comment:000 O2 Sat, Venous POCT 82(H) 70 - 75 % 05/29/2024 7:15 AM SEAFOOD TECHNOLOGY SPECIALIST UR LABORATORY POC Comment:000 Base Excess/Deficit (+/-) POCT 17.0(H) -3.0 - 3.0 mmol/L 05/29/2024 7:15 AM SEAFOOD TECHNOLOGY SPECIALIST UR LABORATORY POC Comment:000 Blood, venous BLOOD SPECIMEN / Unknown 05/29/2024 7:11 AM SEAFOOD TECHNOLOGY SPECIALIST 05/29/2024 7:15 AM SEAFOOD TECHNOLOGY SPECIALIST us Provider Unknown LAB - BEAKER POCT Final Result UR LABORATORY POC [facility] Lab [address] [facility], [address] * Alcohol breath test POCT (05/29/2024 5:48 AM SEAFOOD TECHNOLOGY SPECIALIST) Alcohol Breath Test 0.00 0.00 - 0.01 UR LABORATORY POC Breath us Pankaj Sidhu MD LAB - ENTER/EDIT POCT Final Result Performing Organization Address City/[facility] Co de Phone Number UR LABORATORY POC [facility] [address] [facility], [address] from Last 3 Months Insurance [employer] [facility] [employer] [place] [address] Advance Directives For more information, please contact: [phone] Documents on File Type Date Recorded Patient Medical Policy Specialist Expl anation Advance Directives and Living Will [...] [place] Sister Health Care Agent Larry Sapp Father Second Alternate Health Care Agent Care Teams Rug Scratcher Relationship Specialty Start Date End Date Deepthi Mc [address] [place] [address] PCP - General Physician Breaker Unit Assembler 06/15/23
--- OUTSIDE RECORDS SUMMARY | 2024-08-16 17:51 | XMS_ITS | Clinical Summary ---
Author Organization [facility] Address [place], [place] [address] Care Team Providers Care Forensics Analyst Name Role Phone Deepthi Mc Primary Care Provider Allergies Active Allergy Reactions Criticality Noted Date Comments Haloperidol Shortness Of Breath 01/25/2022 Tightness in airway Medications * This document contains information received from the source organization and may not represent a complete record from that organization. melatonin 3 mg tablet Take 3 mg by mouth at bedtime. Active hydrOXYzine pamoate (VISTARIL) 25 mg capsule Take 25 mg by mouth every 6 hours if needed for Anxiety. Active acetaminophen (TYLENOL) 650 mg suppository Insert 650 mg rectally every 4 hours if needed. 08/14/19 24 Active acetaminophen (TYLENOL) 325 mg tablet Take 325-650 mg by mouth every 4 hours if needed. Active cloNIDine 0.1 mg/24 hr ([id number]) 0.1 mg/24 hr patchIndications:A nxiety,ETOH abuse APPLY 1-2 PATCHES ON DRY, CLEAN, HAIRLESS SKIN ONCE WEEKLY 24 Patch 5 01/30/20 24 Active multivitamins with minerals tabletIndications: Anxiety Take 1 Tablet by mouth once daily. 90 Tablet 3 03/31/20 24 Active traZODone (DESYREL) 50 mg tabletIndications: Insomnia, idiopathic TAKE 1/2 TABLET BY MOUTH AT BEDTIME NEEDED 45 Tablet 5 04/27/20 24 Active hydrOXYzine HCL (ATARAX) 25 mg tabletIndications: Anxiety TAKE 1 TO 2 TABLETS(25 TO 50 MG) BY MOUTH EVERY 6 HOURS NEEDED FOR ANXIETY 120 Tablet 5 05/17/20 24 Active desvenlafaxine succinate (Pristiq) 100 mg extended release tabletIndications: Depression, major, single episode, moderate (HC) Take 1 Tablet (100 mg) by mouth once daily in the morning. 30 Tablet 1 05/24/20 24 Active folic acid 1 mg tabletIndications: Alcoholism (HC) Take 1 Tablet (1 mg) by mouth once daily. 90 Tablet 3 06/02/20 24 Active ondansetron (ZOFRAN ODT) 4 mg disintegrating tabletIndications: Nausea and vomiting, unspecified vomiting type DISSOLVE 1 TABLET ON THE TONGUE EVERY 8 HOURS NEEDED FOR NAUSEA OR VOMITING 60 Tablet 06/02/20 24 Active ramelteon (ROZEREM) 8 mg tabletIndications: Insomnia, idiopathic Take 1 Tablet (8 mg) by mouth at bedtime if needed for Sleep. 30 Tablet 06/02/20 24 Active acamprosate (CAMPRAL) 333 mg tabletIndications: Alcoholism (HC) Take 2 Tablets (666 mg) by mouth three times daily. 180 Tablet 5 06/02/20 24 Active gabapentin (NEURONTIN) 600 mg tabletIndications: Alcohol use disorder Take 300 mg in the am, 300 mg mid day and 600 mg in the evening. 120 Tablet 5 06/02/20 24 Active prochlorperazine (COMPAZINE) 25 mg suppositoryIndicat ions:Nausea and vomiting, unspecified vomiting type UNWRAP AND INSERT 1 SUPPOSITORY( 25 MG) RECTALLY EVERY 12 HOURS NEEDED FOR NAUSEA OR VOMITING 24 Suppository 3 06/25/20 24 Active amoxicillin 875 mg tabletIndications: Recurrent acute suppurative otitis media without spontaneous rupture of left tympanic membrane Take 1 Tablet (875 mg) by mouth two times daily for 10 days. 20 Tablet 08/09/19 25 025 Active dextroamphetamine- amphetamine (AdderalL) 10 mg tabletIndications: Attention deficit hyperactivity disorder (ADHD), combined type Take 1 Tablet (10 mg) by mouth 2 times daily at 7 AM and Noon. 60 Tablet 08/09/19 25 Active LORazepam 1 mg tabletIndications: Anxiety Take 1 Tablet (1 mg) by mouth at bedtime if needed for Anxiety. 10 Tablet 08/09/19 25 Active sucralfate (CARAFATE) 1 gram tablet Take 1 g by mouth four times daily before meals and at bedtime. 025 Discontin ued(*Rebecca ent states no longer taking) PNV cmb#95-ferrous fumarate-FA 28 mg iron- 800 mcg tab Take 1 Tablet by mouth once daily. 10/01/19 24 025 Discontin ued(*Rebecca ent states no longer taking) disulfiram (ANTABUSE) 250 mg tablet Take 250 mg by mouth. 11/16/19 24 025 Discontin ued(*Rebecca ent states no longer taking) lisinopriL (PRINIVIL; ZESTRIL) 10 mg tabletIndications: HTN (hypertension) TAKE 1 TABLET BY MOUTH EVERY DAY 90 Tablet 2 01/13/20 24 025 Discontin ued(*Rebecca ent states no longer taking) nicotine 14 mg/24 hr (NICODERM; HABITROL) 14 mg/24 hr patchIndications:T obacco use disorder Apply 1 Patch on dry, clean, hairless skin once daily. 14 Patch 3 03/31/20 24 025 Discontin ued(*Rebecca ent states no longer taking) sodium chloride 1,000 mg soluble tabletIndications: Alcoholism (HC),ETOH abuse,Hyponatremia Take 1 Tablet (1,000 mg) by mouth three times daily. 27 Tablet 05/18/20 24 025 Discontin ued(*Rebecca ent states no longer taking) thiamine (VITAMIN B1) 100 mg tabletIndications: Alcoholism (HC) Take 1 Tablet (100 mg) by mouth once daily. 90 Tablet 3 06/02/20 24 025 Discontin ued(*Rebecca ent states no longer taking) pantoprazole (PROTONIX) 40 mg delayed-release tabletIndications: Upper GI bleed Take 1 Tablet (40 mg) by mouth two times daily before meals. 180 Tablet 06/02/20 24 025 Discontin ued(*Rebecca ent states no longer taking) Active Problems Problem Noted Date Diagnosed Date Alcohol withdrawal seizure without complication 08/09/2024 Cannabinosis 08/28/2021 MARTY (generalized anxiety disorder) 03/06/2017 Controlled substance agreement signed 11/28/2016 Overview (11/28/2016): Signed 11/27/2016:Dr.Amber Keane Psychiatry Persistent sleep disorder 10/17/2016 Insomnia 09/19/2016 Cyclical vomiting 04/04/2016 Social anxiety disorder 02/26/2016 Depressive disorder, not elsewhere classified PTSD (post-traumatic stress disorder) 05/16/2014 Generalized anxiety disorder 12/03/2013 Overview (10/18/2015): Under the care of Dr. Rafat Falcon for mental health care. [facility] . Initial intake 12/10/12 Previous Medication [...] ER visit for cyclic vomiting; hospitalization at [facility] 05/03 (72 hr hold); 12/01 at [facility] History of Suicide Attempts: no Cannabis dependence, continuous abuse 11/05/2013 ADD (attention deficit disorder) 02/04/2013 Vitamin D deficiency 07/30/2011 Unspecified asthma(493.90) 12/11/2007 Resolved Problems Problem Noted Date Diagnosed Date Resolved Date Hyponatremia 05/16/2014 01/04/2015 Bipolar disorder, unspecified 05/16/2014 01/04/2015 ADD (attention deficit disorder) 05/16/2014 01/04/2015 Unspecified personality disorder 05/16/2014 10/18/2015 Eating disorder 05/06/2014 01/04/2015 Hypercalcemia 05/04/2014 01/04/2015 Hypermagnesemia 05/04/2014 01/04/2015 Hypophosphatemia 05/04/2014 01/04/2015 Bulimia 05/02/2014 05/03/2014 Hypokalemia 05/02/2014 01/04/2015 Cannabis abuse, daily use 10/29/2013 Weight loss 10/26/2013 01/04/2015 Overview (10/26/2013): Colonoscopy 10/2013 normal Anxiety 10/13/2013 12/31/2013 Colitis 10/13/2013 10/26/2013 Adjustment disorder with mix ed disturbance of emotions and conduct 02/16/2008 02/18/2014 Obesity, unspecified 12/11/2007 014 Encounters * This document contains information received from the source organization and may not represent a complete record from that organization. Date Type Department Care Team Description 08/09/2024 2:00 PM INFORMATICS MANAGER Office Visit [address] [address] Deepthi Mc PA Ear Problem (Check both ears); Medication Management (Discuss restarting Adderall and ativan) 08/09/2024 Travel 07/08/[address] [address] Deepthi Mc PA Medication Management (Adderall ) 06/29/[address] [address] Deepthi Mc PA Form (treatment letter) 06/29/[address] [address] Deepthi Mc PA Letter 06/24/[address] [address] Deepthi Mc PA Referral ([facility]) 06/15/[address] [address] Deepthi Mc PA Questions (reach out) 06/14/[address] [address] Deepthi Mc PA Questions (ER VISIT) 06/13/2024 Nurse Triage [address] [address] Deepthi Mc PA Vomiting 06/07/2024 2:20 PM INFORMATICS MANAGER Office Visit [facility] [address] [place] [address] Deepthi Mc PA Follow Up (Recheck from last week) 06/07/2024 Orders Only [facility] Scanner 1 scan: (1-Ord) INCOMING RECORDS-LABS, [facility], 05/14/2024 06/07/2024 Orders Only [facility] Scanner 1 scan: (1-Ord) INCOMING RECORDS-EKG, ][facility], 04/20/2024 06/07/2024 Orders Only [facility] Scanner 1 scan: (1-Ord) INCOMING RECORDS-LABS, [facility], 07/23/2023 06/07/2024 Orders Only [facility] Scanner 1 scan: (1-Ord) INCOMING RECORDS-CT, [facility], 08/15/2022 06/07/2024 Travel 06/02/2024 2:00 PM INFORMATICS MANAGER Office Visit [facility] [address] [place] [address] Deepthi Mc PA Hospital F/U 06/02/2024 Travel 06/01/2024 Telephone [facility] [address] [place] [address] Deepthi Mc PA Concerns 05/31/2024 Telephone [facility] [address] [place] [address] Deepthi Mc PA Referral 05/29/2024 Nurse Triage [facility] [address] [place] [address] Deepthi Mc PA Questions 05/24/2024 2:00 PM INFORMATICS MANAGER Office Visit [facility] [address] [place] [address] Deepthi Mc PA Follow Up (Sleep is a little better - ) 05/24/2024 12:30 PM INFORMATICS MANAGER Office Visit [facility] [address] [place] [address] Diana Laurent AuD Hearing Problem (Hearing test) 05/24/2024 Travel 05/17/2024 2:20 PM CDT Office Visit [facility] [address] [place] [address] Deepthi Mc PA Hospital F/U (Post hospital f/u); Sleep Problem (Having problems sleeping) 05/17/2024 Travel from Last 3 Months Immunizations Name Administration Dates Next Due COVID-19 vaccine (Pfizer-Bio NTech 30mcg/0.3mL) 12YO+ MINH-SUCROSE PF, MDV 11/28/2021 COVID-19 vaccine (Pfizer-Bio NTech 30mcg/0.3mL) PF, MDV 11/29/2020,11/08/2020 DTP-HIB 1995 DTaP 03/16/2001,06/08/1997,1995 HIB HbOC (HibTITER) 06/08/1997 HIB PRP-T (ActHIB,Hiberix) 08/16/1996,04/02/1996 Hepatitis A (Peds) 01/27/2008 Hepatitis B (Peds) 08/16/1996,04/02/1996, 996 Hepatitis B, Unspecified 08/16/1996,04/02/1996,0 1995 Hib Conjugate, Unspecified 06/08/1997,,04/02/1996,1995 Inactivated Polio Vaccine 03/16/2001,,04/02/1996,1995 Influenza, IIV4 05/17/2022,07/07/2020 MMR 03/16/2001,06/08/1997 Polio Virus, Unspecified 03/16/2001,07/22,04/02/1996,1995 TD, UNSPECIFIED 03/20/2020 Td (Age >=7 Years) 03/20/2020 Tdap 01/27/2008 Varicella Vaccine 01/27/2008,07/21/1997 Family History Medical History Relation Name Comments Psychiatric illness Father Other Mother Migraine Psychiatric illness Mother Good Health Sister Relation Name Status Comments Father Mother Sister Social History Tobacco Use Types Packs/Day Years Used Date Smoking Tobacco: Every Day Cigarettes 0.3 5.8 Started: 11/09/2018 Smokeless Tobacco: Never Tobacco Cessation:Ready to Q uit: No; Counseling Given: No Comments:couple per day Alcohol Use Standard Drinks/Week Comments Yes 0 (1 standard drink = 0.6 oz pur e alcohol) quit 04/20/20 PHQ-2 Answer Date Recorded PHQ-2 TOTAL SCORE 4 09/02/2022 Social Connections Answer Date Recorded Do you often feel lonely or isolated from those around you? 4 11/21/2023 Financial Resource Strain Answer Date R ecorded Difficulty of Paying Living Expenses 3 11/21/2023 Difficulty of Paying Living Expenses Not on file 11/21/2023 Food Insecurity Answer Date Recorded Do you worry your food will run out before you are able to buy more? 1 11/21/2023 Transportation Needs Answer Date Record ed Does lack of transportation keep you from medica l appointments? 1 11/21/2023 Does lack of transportation keep you from work, meetings or getting things that you need? 1 11/21/2023 Housing Stability Answer Date Recorded What is your housing situation today? 1 11/21/2023 Utilities Answer Date Recorded Do you have trouble paying f or utilities (for example, heat, electricity, water, phone)? 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 Not on file Not on file Not on file Obstetrics History Last Filed Vital Signs Vital Sign Reading Time Taken Comments Blood Pressure 124/76 08/09/2024 2:09 PM INFORMATICS MANAGER Pulse 89 08/09/2024 2:09 PM INFORMATICS MANAGER Temperature 37.4 C (99.4 F) 12/30/2020 8:55 PM CDT Respiratory Rate 18 12/30/2020 8:55 PM CDT Oxygen Saturation 100% 02/13/2024 11:31 AM CDT Inhaled Oxygen Concentration - - Weight 106.1 kg (234 lb) 08/09/2024 2:09 PM INFORMATICS MANAGER Height 182 cm (5' 11.65) 11/01/2022 2:24 PM CDT Body Mass Index 32.04 11/01/2022 2:24 PM CDT Plan of Treatment Upcoming Encounters Date Type Department Care Team (Late st Contact Info) Description 09/01/2024 2:00 PM INFORMATICS MANAGER Office Visit [facility] [address] [place] [address] Alanna Erwin PA [address] [address] 09/06/2024 2:40 PM INFORMATICS MANAGER Office Visit [facility] [address] [place] [address] Deepthi Mc PA [address] [place] [address] Health Maintenance Due Date Last Done Comments Hepatitis C screening for ag e 18-79 10/02/2013 Pneumococcal series for age 6-49 (1 of 2 - PCV) 10/02/2014 Depression screening for age 12+ 09/02/2023 09/02/2022, 01/22/2021, 12/16/2019, Additional history exists BMI (ht and wt on same day) for age 18+ 11/02/2023 11/01/2022, 08/27/2021, 01/22/2021, Additional history exists COVID-19 vaccine series ( season) 2024 11/28/2021, 11/29/2020, 11/08/2020 Influenza for age 9-49 03/21/2024 05/17/2022, 2019 Tetanus booster 03/20/2030 03/20/2020, 02/20, 01/27/2008 Tdap Completed 01/27/2008 HIV for age 15-65 Completed 10/15/2013 Procedures Procedure Name Priority Date/Time Associated Diagnosis Comments SCAN CORRESP-EKG RESULTS 06/07/2024 12:00 AM INFORMATICS MANAGER SCAN CORRESP-LABORATORY RESULTS 06/07/2024 12:00 AM INFORMATICS MANAGER SCAN CORRESP-LABORATORY RESULTS 06/07/2024 12:00 AM INFORMATICS MANAGER SCAN CORRESP-IMAGING 06/07/2024 12:00 AM INFORMATICS MANAGER PHOSPHORUS Routine 06/02/2024 3:03 PM INFORMATICS MANAGER Alcoholism (HC) HEMOGLOBIN Routine 06/02/2024 3:03 PM INFORMATICS MANAGER Alcoholism (HC) COMP METABOLIC PANEL Routine 05/24/2024 2:32 PM INFORMATICS MANAGER Hyponatremia Hypokalemia Alcoholism (HC) COMP METABOLIC PANEL Routine 05/17/2024 3:03 PM CDT Anxiety Nausea and vomiting, unspecified vomiting type Insomnia, idiopathic Alcoholism (HC) ETOH abuse Hypokalemia Hyponatremia ANTI HIV 1/2 Routine 10/15/2013 9:28 AM CDT Diarrhea GERD (gastroesophageal reflux disease) Weight loss from Last 3 Months or Most Recently Relevant to Health Maintenance Results * SCAN CORRESP-LABORATORY RESULTS (06/07/2024 12:00 AM INFORMATICS MANAGER) Only the most recent of2 resultswithin the time period is included. us Scanner OTHER Final Result * SCAN CORRESP-EKG RESULTS (06/07/2024 12:00 AM INFORMATICS MANAGER) us Scanner OTHER Final Result * SCAN CORRESP-IMAGING (06/07/2024 12:00 AM INFORMATICS MANAGER) Anatomical Region Laterality Modality Other us Scanner OTHER Final Result * (ABNORMAL) HEMOGLOBIN (06/02/2024 3:03 PM INFORMATICS MANAGER) HEMOGLOBIN 9.8(L) 13.2 - 17.1 g/dL [facility] Blood BLOOD SPECIMEN / Unknown 06/02/2024 3:03 PM INFORMATICS MANAGER 06/02/2024 3:04 PM INFORMATICS MANAGER us Deepthi GUERRERO HEMATOLOGY Final R esult [employer] [facility] [address] [place] [address], [facility] [address] [place] [address] * PHOSPHORUS (06/02/2024 3:03 PM INFORMATICS MANAGER) [facility] PHOSPHATE ( PHOSPHORUS) 3.7 2.5 - 4.5 mg/dL [facility] Blood BLOOD SPECIMEN / Unknown 06/02/2024 3:03 PM INFORMATICS MANAGER 06/02/2024 3:04 PM INFORMATICS MANAGER us Deepthi GUERRERO CHEMISTRY Final R esult [employer] [facility] [address] [place] [address], [facility] [address] [place] [address] * COMP METABOLIC PANEL (05/24/2024 2:32 PM INFORMATICS MANAGER) Only the most recent of2 resultswithin the time period is included. [facility] GLUCOSE 82 65 - 99 mg/dL [facility] Comment: Fasting reference interval UREA NITROGEN (BUN) 11 7 - 25 mg/dL [facility] CREATININE 1.01 0.60 - 1.24 mg/dL [facility] EGFR 104 > OR = 60 mL/min/1. 73m2 [facility] BUN/CREATININE RATIO SEE NOTE: 6 - 22 (calc) [facility] Comment: Not Reported: BUN and Creatinine are within reference range. SODIUM 136 135 - 146 mmol/L [facility] POTASSIUM 4.8 3.5 - 5.3 mmol/L [facility] CHLORIDE 102 98 - 110 mmol/L [facility] CARBON DIOXIDE 31 20 - 32 mmol/L [facility] CALCIUM 9.5 8.6 - 10.3 mg/dL [facility] PROTEIN, TOTAL 6.4 6.1 - 8.1 g/dL [facility] ALBUMIN 4.1 3.6 - 5.1 g/dL [facility] GLOBULIN 2.3 1.9 - 3.7 g/dL (calc) [facility] ALBUMIN/GLOBULIN RATIO 1.8 1.0 - 2.5 (calc) [facility] BILIRUBIN, TOTAL 0.3 0.2 - 1.2 mg/dL [facility] ALKALINE PHOSPHATASE 88 36 - 130 U/L [facility] AST 17 10 - 40 U/L [facility] ALT 17 9 - 46 U/L [facility] Blood BLOOD SPECIMEN / Unknown 05/24/2024 2:32 PM INFORMATICS MANAGER 05/24/2024 2:32 PM INFORMATICS MANAGER us Deepthi GUERRERO CHEMISTRY Final R esult [facility] [address] [place] [address], [facility] [address] [place] [address] * ANTI HIV 1/2 (10/15/2013 9:28 AM CDT) Pathologist [facility] ANTI HIV 1/2 Non-reacti ve [facility] Blood specimen (specimen) BLOOD SPECIMEN / Unknown 10/15/2013 9:28 AM CDT 10/15/2013 9:13 AM CDT us Luis Jarrett MD SEND OUTS Final Res ult [facility] [place]IP [address] [place] [id number] from Last 3 Months or Most Recently Relevant to Health Maintenance Insurance [facility] Advance Directives * Full Code (Latest Code Status on File) Date Activated Date Inactivated Comments 05/15/2014 4:32 PM 05/18/2014 8:52 PM * Full Code Date Activated Date Inactivated Comments 05/02/2014 7:01 PM 05/07/2014 1:56 PM Care Teams Forensics Analyst Relationship Specialty Start Date End Date Deepthi Mc PA [address] [place] [address] PCP - General Family Practice 03/04/11
--- OUTSIDE RECORDS SUMMARY | 2024-08-16 17:51 | XMS_ITS | Encounter Summary ---
Author Organization [facility] Address [address] [place] [address]. [place] [address] Care Team Providers Care Potato Seed Cutter Name Role Phone Deepthi Mc Primary Care Provider [phone] Reason for Visit * Reason Comments Advance Care Planning Encounter Details Date Type Department Care Team (Latest Contact Info) Description 07/12/2024 Documentation Only [facility] [address] [facility] [address] [place] [phone] Christine Ugarte Advance Care Planning Social History Tobacco Use Types Packs/Day Years [...] in an abandoned building, in an overnight residential, or couch-surfing.) Yes 06/23/2024 Are you worried [...] on file documented as of this encounter Plan of Treatment Not on file documented as of this encounter Visit Diagnoses Not on filedocumented in this encounter Care Teams Potato Seed Cutter Relationship Specialty Start Date End Date Deepthi Mc [address] [place] [address] PCP - General Physician Farmworker Animal 06/15/23 documented as of this encounter
--- OUTSIDE RECORDS SUMMARY | 2024-08-16 17:51 | XMS_ITS | Encounter Summary ---
Author Organization [facility] Address [address] [place] [address]. [place] [address] Care Team Providers Care Footwear Stitcher Name Role Phone Deepthi Mc Primary Care Provider [phone] Encounter Details Date Type Department Care Team (Latest Contact Info) Description 07/11/2024 Travel Social History Tobacco Use Types Packs/Day Years [...] in an abandoned building, in an overnight retirement, or couch-surfing.) Yes 06/23/2024 Are you worried [...] on filedocumented in this encounter Care Teams Footwear Stitcher Relationship Specialty Start Date End Date Deepthi Mc [address] [place] [address] PCP - General Physician Sensitometrist 06/15/23 documented as of this encounter
--- OUTSIDE RECORDS SUMMARY | 2024-08-16 17:51 | XMS_ITS ---
Author Organization [facility] Address [address] [place] [address] Care Team Providers Care Wildlife Protector Name Role Phone Unavailable Unavailable Unavailable Surgery Details Not on file Complications Check Surgery Details section. Procedure Estimated Blood Loss Check Surgery Details section. Procedure Findings Check Surgery Details section. Procedure Specimens Taken Check Surgery Details section.
--- OUTSIDE RECORDS SUMMARY | 2024-08-16 17:51 | XMS_ITS | Encounter Summary ---
Author Organization [facility] Address [address] [place] [address]. [place] [address] Care Team Providers Care Pulpit Operator Name Role Phone Deepthi Mc Primary Care Provider [phone] Reason for Visit * Reason Comments Advance Care Planning Encounter Details Date Type Department Care Team (Latest Contact Info) Description 07/05/2024 Documentation Only [facility] [address] [facility] [address] [place] [phone] Christine Ugarte Advance Care Planning Social History [...] in an abandoned building, in an overnight intermediate, or couch-surfing.) Yes 06/23/2024 Are you worried [...] on filedocumented in this encounter Care Teams Pulpit Operator Relationship Specialty Start Date End Date Deepthi Mc [address] [place] [address] PCP - General Physician Filter Tender 06/15/23 documented as of this encounter
[2024-08-16 18:20] VITALS: BP 160/101; PULSE 84; RESP 20; O2SAT 100; BMI 31.2
--- NOTE | 2024-08-16 18:57 | ED.NAVMDI ---
HPI - Nausea/Vomiting/Diarrhea General Time Seen by Provider: 18:57 Date Seen: 08/16/24 Chief complaint: Nausea/Vomiting Stated complaint: Vomiting Time Seen by Provider: 08/16/24 18:57 Source: patient, RN notes reviewed and old records reviewed Mode of arrival: ambulatory Limitations: no limitations History of Present Illness HPI Narrative: Antonio is a 28-year-old male with history of significant anxiety, cannabinoid hyperemesis syndrome, polysubstance abuse and currently in a sober house who comes to the emergency room for evaluation of vomiting. He states he felt like he ate too quickly last night. He started vomiting at approximately 1000 hours today. He has not had any diarrhea fever cough cold congestion. He does state this is like always. He has not had any alcohol in quite some time is these living in a sober house. He denies any marijuana use for a month. Antonio is mother notes that he did receive an endoscopy and it was found that he had some esophageal ulcerations and reflux. He was put on Protonix but because he was feeling better he discontinued this. I am in agreement with her that he should probably go back on it. Associated nausea: Yes Related Data Home Medications ?Medication ?Instructions ?Recorded ?Confirmed desvenlafaxine succinate 50 mg 50 mg PO DAILY 02/13/22 06/13/24 tablet,extended release 24 hr hydroxyzine HCl 25 mg tablet 25 - 50 mg PO Q6H PRN 02/13/22 06/13/24 lisinopril 10 mg tablet 10 mg PO DAILY 02/13/22 06/13/24 lorazepam 0.5 mg tablet 0.5 mg PO DAILY PRN 02/13/22 06/13/24 ondansetron 4 mg disintegrating 4 mg PO Q8H PRN 02/13/22 06/13/24 tablet prochlorperazine 25 mg rectal 25 mg ND Q12H PRN 02/13/22 06/13/24 suppository trazodone 50 mg tablet 25 mg PO HS PRN 08/14/22 06/13/24 clonidine 0.1 mg/24 hr weekly 1 patch topical .weekly 05/12/24 06/13/24 transdermal patch dextroamphetamine-amphetamine 10 5 - 10 mg PO DAILY 05/12/24 06/13/24 mg tablet (Adderall) dextroamphetamine-amphetamine ER 20 mg PO DAILY 05/12/24 06/13/24 20 mg 24hr capsule,extend release (Adderall XR) gabapentin 600 mg tablet 600 mg PO HS 05/12/24 06/13/24 melatonin 3 mg tablet 3 mg PO HS PRN 05/12/24 06/13/24 naltrexone 50 mg tablet 50 mg PO DAILY 05/12/24 06/13/24 Previous Rx's ?Medication ?Instructions ?Recorded potassium bicarbonate-citric acid 25 meq PO BID #4 ea 05/13/24 25 mEq effervescent tablet sodium chloride 1,000 mg soluble 1,000 mg PO TID #10 tabs 05/13/24 tablet Allergies Allergy/AdvReac Type Severity Reaction Status Date / Time haloperidol (From Haldol) Allergy Verified 08/16/24 18:24 olanzapine (From Zyprexa) AdvReac Intermediate Cramping Verified 08/16/24 18:24 of the Muscles Review of Systems Status of ROS: Reports: 10 or more systems reviewed and unremarkable except as noted in History and below Const: Denies: fever or chills Eyes: Denies: change in vision ENMT: Denies: nasal discharge Cardio: Denies: chest pain or swelling of feet/ankles Resp: Denies: cough GI: Reports: abdominal pain, nausea and vomiting; Denies: diarrhea : Denies: painful urination [facility] Medical History Cannabinoid hyperemesis syndrome ?R11.2 - Nausea with vomiting, unspecified (ICD-10) ?F12.90 - Cannabis use, unspecified, uncomplicated (ICD-10) Cannabinosis ?J66.2 - Cannabinosis (ICD-10) Severe anxiety with panic ?F41.0 - Panic disorder [episodic paroxysmal anxiety] (ICD-10) Normal colonoscopy Normal esophagogastroduodenoscopy (EGD) ?Z01.89 - Encounter for other specified special examinations (ICD-10) Cyclical vomiting ?R11.15 - Cyclical vomiting syndrome unrelated to migraine (ICD-10) Anxiety ?F41.9 - Anxiety disorder, unspecified (ICD-10) Substance abuse ?F19.10 - Other psychoactive substance abuse, uncomplicated (ICD-10) Surgical History History of myringotomy ?Z98.890 - Other specified postprocedural states (ICD-10) Family History Father Alcohol dependence Drug dependence Suicidal behavior with attempted self-injury Social History Narrative: Patient lives with his mother and stepfather; 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 His mother is healthcare power of investor relations specialist and code status is full. History of alcohol and cannabis abuse. Current cigarette smoking. What is your current living situation?: declined to answer Problems where you live: declined to answer In the past 12 months, utilities in danger of being shut off: declined to answer In past 12 months, lack of transportation kept you from medical appts, meetings, work, or getting things needed for daily living: declined to answer In the past 12 mos, have been you worried that your food would run out before you had money to buy more?: declined to answer In the past 12 mos, the food you bought just didn't last and you didn't have money to buy more?: declined to answer Highest level of school completed/degree received: Associate degree: occupational, technical, vocational program Smoking Status: Current every day smoker What tobacco products do you use: cigarettes Smoking packs per day: 0.5 Smoking cigarettes per day: 10.0 Years smoked: 10 Smoking pack-years: 5.00 Smoking quit date/years: >15 years ago Do you use any of these nicotine containing products: E-Cigarettes and Vaping Products Second hand tobacco smoke exposure: No How often do you have a drink containing alcohol: 4 or more times a week Alcohol type: hard liquor How many standard drinks containing alcohol do you have on a typical day: 5 or 6 How often do you have six or more drinks on one occasion: Daily or almost daily AUDIT-C Alcohol total score: 10 Non-prescribed substance use: marijuana (any form) Caffeine: Yes How often does anyone, including family, friends and others, physically hurt you: decline to answer How often does anyone, including family, friends and others, insult or talk down to you: decline to answer How often does anyone, including family, friends and others, threaten you with harm: decline to answer How often does anyone, including family, friends and others, scream or curse at you: decline to answer service: No Health Related Social Needs: unsheltered homelessness (Z59.02) Exam Narrative: Exam Narrative: Antonio is alert and oriented. He is presenting as he has in the past with his chest bare, a fan in place and frequent movement in the bed as well as getting up and vomiting. In the past it is witness that he self induces vomitings with fingers in his throat but I did not see that this evening. His eyes are clear without drainage. Neck is supple. Heart with regular rate and rhythm. Lungs are clear. Abdomen is soft. Moving all extremities. Frequently shore with his mother when she offers her insight. Const: Vital Signs, click to edit/add: Vital Signs - 24 hr 08/16/24 18:20 Pulse Rate [Pulse Oximeter] 84 Respiratory Rate 20 Blood Pressure [Ri ght Upper Arm] 160/101 H Pulse Oximetry 100 Oxygen Delivery Me thod Room Air Documenting provider has reviewed patient's vital signs: yes Course Course ED Course: Antonio is a 28-year-old gentleman with history of suspected marijuana induced vomiting. He is stating that he has not had marijuana in the past month. He has also not had any alcohol and is currently staying at a sober house. He is immediately requesting medications even at the beginning of my history taking and exam. He is very concerned. He states that he usually gets shots of Toradol, Zofran, Benadryl. He is wondering what I may give him for the vomiting. I do suggest Hiprex a but he states that 1 time when he was here his tongue swelled up. He did receive epinephrine for that. I a.m. currently not finding that in the records but I do see that Zyprexa is listed as an allergy and this caused cramping of the muscles. I do suggest Reglan, Benadryl, Zofran which are ordered. He further request Toradol after receiving this medications and that is ordered as well. Reevaluation(s) Reevaluation #1: When I returned to the room after medications Antonio is holding a vomit bag with vomitus in it. It is clear liquid. He brings with him some drinks. He is requesting Ativan which I would like to avoid if at all possible. We talked about using droperidol and Protonix. Initially he states he only wants the droperidol. We have convinced him that it would be to his benefit to receive both. I have ordered fluids as well as child monitor given that this has the potential to prolonged QT intervals along with Zofran and Reglan. Reevaluation #2: After ordering droperidol, IV placement, Protonix and child monitor as well as fluids nursing contacted me as they were unable to get a IV and because Antonio kept getting up and walking to the sink to retch. I do talk to him and he has tested positive for benzodiazepines. He notes the last time he was at the was a month ago. He is on p.r.n. Ativan at his facility. I have attempted to do my best to not use any controlled substances in this young man with a history of polysubstance abuse but given the fact that he is receiving Ativan at the facility I have canceled the droperidol and instead will be giving Ativan 1 mg IM. I did state I cannot promise this in the future in fact if with all possible we will try to avoid it. Vital Signs Vital signs: Initial Vital Signs Pulse Rate 84 08/16/24 18:20 Respiratory Rate 20 08/16/24 18:20 Blood Pressure 160/101 H 08/16/24 18:20 Blood Pressure Mean 120 H 08/16/24 18:20 Blood Pressure Position Sitting 08/16/24 18:20 Pulse Oximetry 100 08/16/24 18:20 Oxygen Delivery Method Room Air 08/16/24 18:20 Vital Signs Pulse Rate 84 08/16/24 18:20 Respiratory Rate 20 08/16/24 18:20 Blood Pressure 160/101 H 08/16/24 18:20 Pulse Oximetry 100 08/16/24 18:20 Oxygen Delivery Method Room Air 08/16/24 18:20 Pulse Rate 84 08/16/24 18:20 Respiratory Rate 20 08/16/24 18:20 Blood Pressure 160/101 H 08/16/24 18:20 Pulse Oximetry 100 08/16/24 18:20 Oxygen Delivery Method Room Air 08/16/24 18:20 Medications Administered Medications: Discontinued Medications Generic Name Dose Route Start Last Admin Trade Name Freq PRN Reason Stop Dose Admin Diphenhydramine HCl 50 mg 08/16/24 19:08 08/16/24 19:27 Diphenhydramine 50 Mg/Ml Inj IM 08/16/24 19:09 50 mg ONCE ONE Administration Droperidol 0.625 mg 08/16/24 21:33 08/16/24 21:54 Droperidol 2.5 Mg/Ml Inj IV 08/16/24 21:34 Not Given ONCE ONE Sodium Chloride 500 mls @ 500 mls/hr 08/16/24 21:18 08/16/24 21:54 0.9 % Sodium Chloride 500 Ml IV 08/16/24 22:17 Not Given .Q1H ONE Ketorolac Tromethamine 30 mg 08/16/24 20:20 08/16/24 20:53 Ketorolac 30 Mg/Ml Inj IM 08/16/24 20:21 30 mg ONCE ONE Administration Lorazepam 1 mg 08/16/24 21:50 08/16/24 22:00 Lorazepam 2 Mg/Ml Inj IM 08/16/24 21:51 1 mg ONCE ONE Administration Metoclopramide HCl 10 mg 08/16/24 19:08 08/16/24 19:33 Metoclopramide Hcl 5 Mg/Ml Inj IVP 08/16/24 19:09 Not Given ONCE ONE Metoclopramide HCl 10 mg 08/16/24 19:10 08/16/24 19:29 Metoclopramide Hcl 5 Mg/Ml Inj IM 08/16/24 19:11 10 mg ONCE ONE Administration Ondansetron HCl 4 mg 08/16/24 19:08 08/16/24 19:29 Ondansetron 2 Mg/Ml Inj IM 08/16/24 19:09 4 mg ONCE ONE Administration Pantoprazole Sodium 80 mg 08/16/24 21:18 08/16/24 21:54 Pantoprazole Sodium 40 Mg Inj IVP 08/16/24 21:19 Not Given ONCE ONE MDM - Nausea/Vomiting/Diarrhea MDM Narrative Medical decision making narrative: 1. Cyclic vomiting-patient still test positive for marijuana this evening. That is not unusual for somebody who was a chronic user to continue to be positive for period of time. He is telling me that it has been 1 month since he used. I do think that there is a significant psychological component to presentation but there also may be underlying GERD component that triggers this. I would like to Antonio to go back on his Protonix and to stay on it. Patient did not have relief with Reglan, Benadryl, Toradol and Zofran. Plan was to switch to droperidol but unable to place IV and safely monitor on child monitor given the fact that he would not stay in the bed. Eventually he was given 1 mg IM Ativan. Patient noted to be feeling better almost immediately according to nursing staff. Would like to try to avoid this in the future. I am wondering if we could employ droperidol as patient now states he has an allergy to Zyprexa. 2. History of polysubstance abuse-to the best my ability did try to avoid all controlled substances. It does appear that Antonio is on p.r.n. Ativan. 3. Disposition- home with mom at this time. I had placed an order for laboratory values since we were going to put an IV in. Urinalysis showed only 1+ ketones which is quite good for Antonio. He has only been vomiting since 1000 hours. Given the fact that the nurses could not place an IV because he was moving around the room so much I canceled the labs at this time. Would suggest seeking medical attention for worsening symptoms. Medical Records Attestation: I reviewed the patient's medical records. Lab Data Attestation: I reviewed the patient's lab results. Labs: Lab Results 08/16/24 Range/Units 20:23 Urine Color Yellow (Yellow) Urine Appearance Slightly Cloudy A (Clear) Urine pH 8.5 (5.0-8.5) Ur Specific [place] 1.020 (1.000-1.030) Urine Protein 2+ A (Negative) Urine Glucose (UA) Negative (Negative) Urine Ketones 1+ A (Negative) Urine Blood Negative (Negative) Urine Nitrite Negative (Negative) Urine Bilirubin Negative (Negative) Urine Urobilinogen 0.2 (0.2-1.0) Ur Leukocyte Esterase Negative (Negative) Urine RBC 0-2 (0-2) Urine WBC 0-2 (0-5) Ur Squamous Epith Cells None (None-Few) Urine Bacteria None (None) Urine Opiates Screen Negative (Negative) Ur Oxycodone Screen Negative (Negative) Urine Methadone Screen Negative (Negative) Ur Barbiturates Screen Negative (Negative) U Tricyclic Antidepress Negative (Negative) Ur Phencyclidine Scrn Negative (Negative) Ur Amphetamines Screen POSITIVE A (Negative) U Methamphetamines Scrn Negative (Negative) U Benzodiazepines Scrn POSITIVE A (Negative) Urine Cocaine Screen Negative (Negative) U Marijuana (THC) Screen POSITIVE A (Negative) Ur Drug Screen Comment See Note Discharge Plan Discharge Clinical Impression: Cyclical vomiting Acid reflux Qualifiers: Esophagitis presence: esophagitis presence not specified Qualified Code(s): K21.9 - Gastro-esophageal reflux disease without esophagitis Patient Disposition: Home w/ Parent or Adult Condition: Improved Additional Instructions: Recommend restarting your Protonix daily. Continue abstinence from marijuana. Congratulations on your sobriety-best wishes while you are working on this. Increase fluids. Return as needed. Prescriptions: No Action lorazepam 0.5 mg tablet 0.5 mg PO DAILY PRN prochlorperazine 25 mg suppository 25 mg ND Q12H PRN lisinopril 10 mg tablet 10 mg PO DAILY hydroxyzine HCl 25 mg tablet 25 - 50 mg PO Q6H PRN ondansetron 4 mg tablet,disintegrating 4 mg PO Q8H PRN Patient Comments: DISSOLVE 1 TABLET ON THE TONGUE EVERY 8 HOURS NEEDED FOR NAUSEA OR VOMITING desvenlafaxine succinate 50 mg tablet extended release 24 hr 50 mg PO DAILY trazodone 50 mg tablet 25 mg PO HS PRN clonidine 0.1 mg/24 hr patch weekly 1 patch topical .weekly melatonin 3 mg tablet 3 mg PO HS PRN dextroamphetamine-amphetamine [Adderall XR] 20 mg capsule,extended release 24hr 20 mg PO DAILY dextroamphetamine-amphetamine [Adderall] 10 mg tablet 5 - 10 mg PO DAILY gabapentin 600 mg tablet 600 mg PO HS naltrexone 50 mg tablet 50 mg PO DAILY sodium chloride 1,000 mg tablet,soluble 1,000 mg PO TID Qty: 10 0RF potassium bicarb-citric acid 25 mEq tablet, effervescent 25 meq PO BID Qty: 4 0RF Follow Up/Referrals: Deepthi Mc PA-C [Primary Care Provider] - Stand Alone Forms: [facility] Info Instructions
--- OUTSIDE RECORDS SUMMARY | 2024-08-16 19:17 | XMS_ITS | Continuity of Care Document ---
Author Organization [facility] Address [address] [address] [place] [address] Phone Care Team Providers Care Milking Worker Name Role Phone Chris WINTERS, Ahmed [...] [facility], [address] [address], [place], [id number], [place] tel:[phone] [facility] No Information 4 Chris Crawford. [address] [facility], [place], [id number] , [place]. [phone] Referring Provider: Lazaro Bryant MD, [address] [place], [address]. tel:[phone] [facility], [address] [address], [place], [id number], [place] tel:[phone] [facility] Gastroduodenal Dis NosAbdominal Pain, UnspecifiedWeight LossGastroduodenal Dis NosWeight LossAbdominal Pain, Unspecified 3 Dominic Nayak. [address] [facility], [place], [id number] , [place]. [phone] Referring Provider: Deepthi GUERRERO, [address] [place] [address], [address]. tel:[phone] Offic/outpt E&m [place] [facility], [address] [address], [place], [id number], [place] tel:[phone] [facility] Abdominal pain (chief complaint) Vomiting (chief complaint) Abd Pain GeneralizedNausea With Vomiting 3 Ole Soto. [address] [facility], [facility] [place], [id number] , [place]. [phone] Referring Provider: Brina Wilkins, [address] [place], [address]. tel:[phone] Family History Family Member Type Diagnosis Age [...]
--- OUTSIDE RECORDS SUMMARY | 2024-08-16 19:17 | XMS_ITS | Clinical Summary ---
[facility] Address [address], [place] [address] Care Team Providers Care Director Peoplesoft Name Role Phone Deepthi Mc PA-C Primary Care Provider [phone] Source Comments You are receiving this document as you are listed as the primary care provider,follow-up provider, or the patient has been referred to you for consultation.This is in compliance with the Medicare and[facility] Cent[facility] EHR Incentive Program,which states Providers who transition their patient to another setting of careor provider of care or refers their patient to another provider of care shouldprovide summary care record for each transition of care or referral. [facility] Allergies No known active allergies Medications Medication [...] history of withdrawal seizures or withdrawal complications. [place] admission on 03/26/20 for alcohol withdrawal and discharged on 03/28/20. Patient is interested in quitting. Has previously tried clonidine and naltrexone. Patient with history of alcohol abuse. No history of withdrawal seizures or withdrawal complications. [place] admission on 03/26/20 for alcohol withdrawal and [...] ER visit for cyclic vomiting; hospitalization at [facility] 05/03 (72 hr hold); 12/01 at [email or web address] History of Suicide Attempts: no Under the [...] ER visit for cyclic vomiting; hospitalization at [facility] 05/03 (72 hr hold); 12/01 at [email or web address] History of Suicide Attempts: no Under the [...] ER visit for cyclic vomiting; hospitalization at [facility] 05/03 (72 hr hold); 12/01 at [email or web address] History of Suicide Attempts: no Asthma 12/11/2007 Overview (12/26/2020): Patient with childhood asthma, not currently requiring any inhalers or medication. Patient with childhood asthma, not currently requiring any inhalers or medication. Encounters Date Type Department Care Team Description 06/27/2024 5:07 PM NURSE [facility] - 06/27/2024 11:59 PM NURSE [facility] Hospital Encounter [facility] [address] [place] [address] Cherelle Lilly MD Discharge Disposition: Home from Last 3 Months Social History Tobacco Use Types Packs/Day Years Used Date Smoking Tobacco: Every Day Cigarettes Sex and Gender Information Value Date Recorded Sex Assigned at Not on file Gender Identity Not on file Sexual Orientation Not on file Last Filed Vital Signs Vital Sign Reading Time Taken Comments Blood Pressure 165/84 08/11/2021 5:23 PM NURSE [facility] Pulse 77 08/11/2021 5:23 PM NURSE [facility] Temperature 36.4 C (97.5 F) 08/11/2021 5:23 PM NURSE [facility] Respiratory Rate 20 08/11/2021 5:23 PM NURSE [facility] Oxygen Saturation 100% 08/11/2021 5:23 PM NURSE [facility] Inhaled Oxygen Concentration - - Weight 104.3 kg (230 lb) 08/11/2021 5:26 PM NURSE [facility] Height 182.9 cm (6') 08/11/2021 5:26 PM NURSE [facility] Body Mass Index 31.19 08/11/2021 5:26 PM NURSE [facility] Plan of Treatment Health Maintenance Due Date [...] age to complete this topic Care Teams Director Peoplesoft Relationship Specialty Start Date End Date Deepthi Mc PA-C [address] [place], [place] [id number] PCP - General Physician Technical Maintenance Technician 08/15/24
--- OUTSIDE RECORDS SUMMARY | 2024-08-16 19:17 | XMS_ITS | Encounter Summary ---
Author Organization [facility] Address [address] [place] [address]. [place] [address] Care Team Providers Care Senior Military Analyst Name Role Phone Deepthi Mc Primary Care Provider [phone] Reason for Visit * Reason Comments Nausea & Vomiting Anxiety Abdominal Pain Encounter Details Date Type Department Care Team (Late st Contact Info) Description 07/12/2024 10:10 PM HIDE AND SKIN COLERER - 07/13/2024 6:40 AM [facility] Emergency [facility] Emergency Department [address] [place] [phone] Jack Cornejo MD [facility] [address] [place] [id number] Geraldine Saravia MD [address] [place] [address] Nausea and vomiting, unspecified vomiting [...] in an abandoned building, in an overnight chcf, or couch-surfing.) Yes 06/23/2024 Are you worried [...] Comments Blood Pressure 122/60 07/13/2024 6:16 AM HIDE AND SKIN COLERER Pulse 117 07/12/2024 10:01 PM HIDE AND SKIN COLERER Temperature 36.7 C (98.1 F) 07/12/2024 10:01 PM HIDE AND SKIN COLERER Respiratory Rate 30 07/12/2024 10:01 PM HIDE AND SKIN COLERER Oxygen Saturation 100% 07/12/2024 10:01 PM HIDE AND SKIN COLERER Inhaled Oxygen Concentration - - Weight 98.9 kg (218 lb) 07/12/2024 10:01 PM HIDE AND SKIN COLERER Height - - Body Mass Index 29.57 07/11/2024 3:12 PM HIDE AND SKIN COLERER documented in this encounter Discharge Instructions * Discharge Instructions* Geraldine Saravia MD - 07/13/2024 5:49 AM HIDE AND SKIN COLERER You were seen in the Emergency Department [...] might find useful. Thank you for choosing [facility]. It was a pleasure taking care of you today! - Dr. Geraldine Saravia AND SKIN COLERER AND SKIN COLERER * Attachments The following attachments cannot be sent through Care Everywhere. * Cannabinoid Hyperemesis Syndrome (Montserratian) documented in this encounter Medications at Time [...] Pt discharged to chemical dependence treatment facility [facility], facility staff on their way to transport Pt. AND SKIN COLERER * Caio Vora RN - 07/13/2024 6:08 AM CST Beatriz at [facility] called and updated, facility staff will be sent to transport Pt back. AND SKIN COLERER * Geraldine Saravia MD - 07/13/2024 2:10 [...] 5 mg (5 mg Intramuscular $Given 07/12/24 8677) LORazepam (ATIVAN) injection 1 mg (1 mg [...] Negative Ketones Urine 40 (*) Specific [place] Urine 1.017 Blood Urine Negative pH Urine [...] accordance with my direction. Geraldine Saravia MD [facility] EMERGENCY DEPARTMENT [address] [place] [phone] Geraldine Saravia MD 07/13/24 1313 AND SKIN COLERER * Caio Vora RN - 07/12/2024 11:45 PM CST Pt stated nausea has improved somewhat after zofran and ativan, still has abdominal pain rated 5/10and is requesting something more to help with the pain and nausea, will give toradol and zyprexa next. AND SKIN COLERER * Jack Cornejo MD - 07/12/2024 10:41 [...] as of 07/13/24 0154 FriJul 12, 2024 3491 Patient is a 20-year-old male with history [...] records: External records reviewed?: Inpatient Record: 07/11/2024, [facility] Emergency Department Care impacted by chronic illness:Alcohol [...] with other provider:Did you involve another provider (mining consultant, , pharmacy, etc.)?: No Admission considered. [...] information was obtained from: Patient Use of [employer]: N/A Claudio Sapp is a 28 year old male with a pertinent history of cannabinosis, depression, ADHD, alcohol dependence with withdrawal and seizure, cannabis use with withdrawal, asthma, cyclical vomiting syndrome, GERD, hypertension, PTSD, social anxiety, somatoform disorder who presents to this ED by walk-in for evaluation of nausea and vomiting, anxiety, abdominal pain. Per chart review: Patient was seen yesterday (07/11/2024) at [facility] Emergency Department for evaluation of abdominal pain. [...] Dr. Rafat Falcon for mental health care. [facility] . Initial intake 12/10/12 Previous [...] Social Connections: Socially Isolated (11/21/2023) Received from [facility] Social Connections Do you often feel [...] report. No orders to display PROCEDURES: None [facility] System Documentation: [facility] Diagnoses: I, Christian Sanchez, am serving as a scribe to document services personally performed by Jack Cornejo MDbased on my observation and the provider's statements to me. I, Jack Cornejo MD, attest that Christian Sanchez is acting in a scribe capacity, has observed my performance of the services and has documentedthem in accordance with my direction. Jack Cornejo MD [facility] EMERGENCY DEPARTMENT [address] [place] [phone] Jack Cornejo MD 07/13/24 0118 Jack Cornejo MD 07/13/24 0154 AND SKIN COLERER AND SKIN COLERER * Gadiel Reddy RN - 07/12/2024 10:01 PM CST The patient reports nausea and vomiting on and off for the past 3 weeks. Hx of hyperemesis from cannabis use. He is anxious in triage. He states this round of emesis has been going on for 3 days. PT comes from [facility] for chemical dependency treatment. AND SKIN COLERER documented in this encounter Plan of Treatment Not on file documented as of this encounter Procedures Procedure Name Priority Date/Time Associated Diagnosis Comments ROUTINE UA WITH MICROSCOPIC REFLEX TO CULTURE STAT 07/13/2024 4:26 AM HIDE AND SKIN COLERER CBC WITH PLATELETS AND DIFFERENTIAL STAT 07/13/2024 1:19 AM HIDE AND SKIN COLERER CBC WITH PLATELETS & DIFFERENTIAL STAT 07/13/2024 1:19 AM HIDE AND SKIN COLERER LIPASE STAT 07/13/2024 1:19 AM HIDE AND SKIN COLERER HEPATIC FUNCTION PANEL STAT 07/13/2024 1:19 AM HIDE AND SKIN COLERER BASIC METABOLIC PANEL STAT 07/13/2024 1:19 AM HIDE AND SKIN COLERER documented in this encounter Results * (ABNORMAL) UA with Microscopic reflex to Culture (07/13/2024 4:26 AM HIDE AND SKIN COLERER) Color Urine Light Yellow Colorless, Straw, Light Yellow, Yellow 07/13/2024 4:49 AM HIDE AND SKIN COLERER [facility] Appearance Urine Clear Clear 07/13/20 4:49 AM HIDE AND SKIN COLERER [facility] Glucose Urine Negative Negative mg/dL 07/13/2024 4:49 AM HIDE AND SKIN COLERER [facility] Bilirubin Urine Negative Negative 4:49 AM HIDE AND SKIN COLERER [facility] Ketones Urine 40(A) Negative mg/dL 07/13/2024 4:49 AM HIDE AND SKIN COLERER [facility] Specific [place] Urine 1.017 1.001 - 1.030 07/13/2024 4:49 AM HIDE AND SKIN COLERER [facility] Blood Urine Negative Negative 07/13/2024 4:49 AM HIDE AND SKIN COLERER [facility] pH Urine 6.0 5.0 - 7.0 07/13/2024 4:49 AM HIDE AND SKIN COLERER [facility] Protein Albumin Urine Negative Negative mg/dL 07/13/2024 4:49 AM HIDE AND SKIN COLERER [facility] Urobilinogen Urine <2.0 <2.0 mg/dL 07/13/2024 4:49 AM HIDE AND SKIN COLERER [facility] Nitrite Urine Negative Negative 07/13/2024 4:49 AM HIDE AND SKIN COLERER [facility] Leukocyte Esterase Urine Negative Negative 07/13/2024 4:49 AM HIDE AND SKIN COLERER [facility] RBC Urine 1 <=2 /HPF 07/13/2024 4:49 AM HIDE AND SKIN COLERER [facility] WBC Urine 1 <=5 /HPF 07/13/2024 4:49 AM HIDE AND SKIN COLERER [facility] Urine URINE SPECIMEN OBTAINED BY CLEAN CATCH PROCEDURE / Unknown Non-blood Collection / Unknown 07/13/2024 4:26 AM HIDE AND SKIN COLERER 07/13/2024 4:40 AM HIDE AND SKIN COLERER Narrative [facility] - 07/13/2024 4:49 AM HIDE AND SKIN COLERER Urine Culture not indicated Jack Cornejo MD LAB - URINE ORDERABLES Final Res ult [facility] [address] [place] [address], [facility] * (ABNORMAL) CBC with platelets and differential (07/13/2024 1:19 AM HIDE AND SKIN COLERER) WBC Count 13.1(H) 4.0 - 11.0 10e3/uL 07/13/2024 1:27 AM HIDE AND SKIN COLERER [facility] RBC Count 4.08(L) 4.40 - 5.90 10e6/uL 07/13/2024 1:27 AM HIDE AND SKIN COLERER [facility] Hemoglobin 10.2(L) 13.3 - 17.7 g/dL 07/13/2024 1:27 AM HIDE AND SKIN COLERER [facility] Hematocrit 30.8(L) 40.0 - 53.0 % 07/13/2024 1:27 AM HIDE AND SKIN COLERER [facility] MCV 76(L) 78 - 100 fL 07/13/2024 1:27 AM HIDE AND SKIN COLERER [facility] MCH 25.0(L) 26.5 - 33.0 pg 07/13/2024 1:27 AM HIDE AND SKIN COLERER [facility] MCHC 33.1 31.5 - 36.5 g/dL 07/13/2024 1:27 AM HIDE AND SKIN COLERER [facility] RDW 17.6(H) 10.0 - 15.0 % 07/13/2024 1:27 AM HIDE AND SKIN COLERER [facility] Platelet Count 462(H) 150 - 450 10e3/uL 07/13/2024 1:27 AM HIDE AND SKIN COLERER [facility] % Neutrophils 73 % 07/13/2024 1:27 AM HIDE AND SKIN COLERER [facility] % Lymphocytes 16 % 07/13/2024 1:27 AM HIDE AND SKIN COLERER [facility] % Monocytes 11 % 07/13/2024 1:27 AM HIDE AND SKIN COLERER [facility] % Eosinophils 0 % 07/13/2024 1:27 AM HIDE AND SKIN COLERER [facility] % Basophils 0 % 07/13/2024 1:27 AM HIDE AND SKIN COLERER [facility] % Immature Granulocytes 0 % 07/13/2024 1:27 AM HIDE AND SKIN COLERER [facility] NRBCs per 100 WBC 0 <1 /100 024 1:27 AM HIDE AND SKIN COLERER [facility] Absolute Neutrophils 9.5(H) 1.6 - 8.3 10e3/uL 07/13/2024 1:27 AM HIDE AND SKIN COLERER [facility] Absolute Lymphocytes 2.1 0.8 - 5.3 10e3/uL 07/13/2024 1:27 AM [facility] Absolute Monocytes 1.4(H) 0.0 - 1.3 10e3/uL 07/13/2024 1:27 AM [facility] Absolute Eosinophils 0.1 0.0 - 0.7 10e3/uL 07/13/2024 1:27 AM [facility] Absolute Basophils 0.0 0.0 - 0.2 10e3/uL 07/13/2024 1:27 AM [facility] Absolute Immature Granulocytes 0.1 <=0.4 10e3/uL 07/13/2024 1:27 AM [facility] Absolute NRBCs 0.0 10e3/uL 07/13/2024 1:27 AM [facility] Blood BLOOD SPECIMEN / Unknown Venipuncture / Unknown 07/13/2024 1:19 AM HIDE AND SKIN COLERER 07/13/2024 1:23 AM HIDE AND SKIN COLERER us Jack Cornejo MD LAB - BLOOD ORDERABLES Final Res ult [facility] [address] [place] [address], [place] * Lipase (07/13/2024 1:19 AM HIDE AND SKIN COLERER) Pathologist [facility] Lipase 27 13 - 60 U/L 07/13/2024 3:10 AM [facility] Blood BLOOD SPECIMEN / Unknown Venipuncture / Unknown 07/13/2024 1:19 AM HIDE AND SKIN COLERER 07/13/2024 1:23 AM HIDE AND SKIN COLERER Jack Cornejo MD LAB - BLOOD ORDERABLES Final Res ult [facility] [address] [place] [address], [place] * Hepatic function panel (07/13/2024 1:19 AM HIDE AND SKIN COLERER) Pathologist [facility] Protein Total 6.8 6.4 - 8.3 g/dL 07/13/2024 3:16 AM [facility] Albumin 4.4 3.5 - 5.2 g/dL 07/13/2024 3:16 AM [facility] Bilirubin Total 0.9 <=1.2 mg/dL 07/13/2024 3:16 AM [facility] Alkaline Phosphatase 78 40 - 150 U/L 07/13/2024 3:16 AM [facility] AST 07/13/2024 3:16 AM [facility] Comment:Unsatisfactory speci men - lipemic ALT 07/13/2024 3:16 AM [facility] Comment:Unsatisfactory speci men - lipemic Bilirubin Direct 07/13/20 3:16 AM [facility] Comment:Unsatisfactory speci men - lipemic Blood BLOOD SPECIMEN / Unknown Venipuncture / Unknown 07/13/2024 1:19 AM HIDE AND SKIN COLERER 07/13/2024 1:23 AM [facility] Jack Cornejo MD LAB - BLOOD ORDERABLES Final Res ult Performing Organization Address City/State/[facility] Co de Phone Number [facility] [address] [facility] [address] * (ABNORMAL) Basic metabolic panel (07/13/2024 1:19 AM [facility]) Sodium 127(L) 135 - 145 mmol/L 07/13/2024 3:15 AM [facility] Potassium 4.4 3.4 - 5.3 mmol/L 07/13/2024 3:15 AM [facility] Chloride 91(L) 98 - 107 mmol/L 07/13/2024 3:15 AM [facility] Carbon Dioxide (CO2) 23 22 - 29 mmol/L 07/13/2024 3:15 AM [facility] Anion Gap 13 7 - 15 mmol/L 07/13/2024 3:15 AM [facility] Urea Nitrogen 22.0(H) 6.0 - 20.0 mg/dL 07/13/2024 3:15 AM [facility] Creatinine 0.92 0.67 - 1.17 mg/dL 07/13/2024 3:15 AM [facility] GFR Estimate >90 >60 mL/min/1.7 3m2 07/13/2024 3:15 AM [facility] Comment:eGFR calculated usin 2020 CKD-EPI equation. Calcium 9.6 8.8 - 10.4 mg/dL 07/13/2024 3:15 AM [facility] Comment:Reference intervals for this test were updated on 02/03/2024 to reflect our healthy population more accurately. There may be differences in the flagging of prior results with similar values performed with this method. Those prior results can be interpreted in the context of the updated reference intervals. Glucose 91 70 - 99 mg/dL 07/13/2024 3:15 AM [facility] Blood BLOOD SPECIMEN / Unknown Venipuncture / Unknown 07/13/2024 1:19 AM HIDE AND SKIN COLERER 07/13/2024 1:23 AM HIDE AND SKIN COLERER Jack Cornejo MD LAB - BLOOD ORDERABLES Final Res ult [facility] [address] [facility] [place], [place] [address] documented in this encounter Visit Diagnoses Diagnosis [...] to 2 minutes. $Given 07/12/2024 11:51 PM HIDE AND SKIN COLERER 15 mg lactated ringers BOLUS 1,000 mL Intravenous, 1,000 mL, ONCE, at 1,000 mL/hr, Administer over 1 Hours, On Fri07/13/24 at 0130, For 1 dose $New Bag 07/13/2024 1:08 AM HIDE AND SKIN COLERER 1,000 mLs 1000 mL/hr lactated ringers BOLUS 500 mL Intravenous, 500 mL, ONCE, at 500 mL/hr, Administer over 1 Hours, On Fri07/13/24 at 0400, For 1 dose $New Bag 07/13/2024 4:28 AM HIDE AND SKIN COLERER 500 mLs 500 mL/hr LORazepam (ATIVAN) injection 1 mg 1 mg, Intravenous, ONCE, On Fri07/12/24 at 2330, For 1 dose, IV Route: Dilute with equal volume NS prior to use. This drug may cause significant respiratory depression. Monitor respiratory status and vital signs carefully for 1 hour after each dose. $Given 07/12/2024 11:30 PM HIDE AND SKIN COLERER 1 mg metoclopramide (REGLAN) injection 10 mg 10 mg, Intravenous, Administer over 2 Minutes, ONCE, On Fri07/13/24 at 0130, For 1 dose, Avoid use if patient has full bowel obstruction or perforation. $Given 07/13/2024 1:07 AM HIDE AND SKIN COLERER 10 mg OLANZapine (zyPREXA) injection 5 mg [...] any unused portion. $Given 07/12/2024 11:51 PM HIDE AND SKIN COLERER 5 mg OLANZapine (zyPREXA) injection 5 mg [...] any unused portion. $Given 07/13/2024 4:29 AM HIDE AND SKIN COLERER 5 mg ondansetron (ZOFRAN) injection 4 mg 4 mg, Intravenous, ONCE, Administer over 2-5 Minutes, On Fri07/12/24 at 2230, For 1 dose $Given 07/12/2024 11:08 PM HIDE AND SKIN COLERER 4 mg documented in this encounter Active and Recently Administered Medications Times are shown in HIDE AND SKIN COLERER. Scheduled Medication Order 07/11/2024 07/12/2024 07/13/2024 ketorolac [...] unused portion. 2351 ($Given - Provider: Caio Vroa RN) OLANZapine (zyPREXA) injection 5 mg (COMPLETED) [...] order) documented in this encounter Care Teams Senior Military Analyst Relationship Specialty Start Date End Date Deepthi Mc [address] [place] [address] PCP - General Physician Database Modeler 06/15/23 documented as of this encounter
--- OUTSIDE RECORDS SUMMARY | 2024-08-16 19:17 | XMS_ITS ---
Author Organization Unknown Address [address] [place], [place] [id number] Phone Care Team Providers Care Lead Slot Technician Name Role Phone CLAIRE TEJADA Attending Unavailable [...] Code Sys tem Cyclical vomiting syndrome 10/28/2023 [id number] S NOMED-CT Personal Care Team Section Performer Name Performer Role Active Date Inactive Da te
--- OUTSIDE RECORDS SUMMARY | 2024-08-16 19:18 | XMS_ITS | Clinical Summary ---
Author Organization [place] Address [address] [place] [id number] Care Team Providers Care Bracelet Former Name Role Phone Jesusita Deepthi Wilkins Primary Care Provider [phone] Allergies Active Allergy Reactions Criticality Noted Date [...] history of withdrawal seizures or withdrawal complications. [facility] admission on 03/26/20 for alcohol withdrawal and discharged on 03/28/20. Patient is interested in quitting. Has previously tried clonidine and naltrexone. Patient with history of alcohol abuse. No history of withdrawal seizures or withdrawal complications. [facility] admission on 03/26/20 for alcohol withdrawal and discharged on 03/28/20. Patient is interested in quitting. Has previously tried clonidine and naltrexone. Patient with history of alcohol abuse. No history of withdrawal seizures or withdrawal complications. [facility] admission on 03/26/20 for alcohol withdrawal and discharged on 03/28/20. Patient is interested in quitting. Has previously tried clonidine and naltrexone. Cyclical vomiting 04/04/2016 Social anxiety disorder 02/26/2016 PTSD (post-traumatic stress disorder) 05/16/2014 Overview (07/15/2021): Under the care of Dr. Rafat Falcon for mental health care. [facility] . Initial intake 12/10/12 Previous Medication Trials: [...] ER visit for cyclic vomiting; hospitalization at [facility] 05/03 (72 hr hold); 12/01 at [facility] History of Suicide Attempts: no Under the care of Dr. Rafat Falcon for mental health care. [facility] . Initial intake 12/10/12 Previous Medication Trials: [...] ER visit for cyclic vomiting; hospitalization at [facility] 05/03 (72 hr hold); 12/01 at [facility] History of Suicide Attempts: no Under the care of Dr. Rafat Falcon for mental health care. [facility] . Initial intake 12/10/12 Previous Medication Trials: [...] ER visit for cyclic vomiting; hospitalization at [facility] 05/03 (72 hr hold); 12/01 at [facility] History of Suicide Attempts: no Under the care of Dr. Rafat Falcon for mental health care. [facility] . Initial intake 12/10/12 Previous Medication Trials: [...] ER visit for cyclic vomiting; hospitalization at [facility] 05/03 (72 hr hold); 12/01 at [facility] History of Suicide Attempts: no Under the care of Dr. Rafat Falcon for mental health care. [facility] . Initial intake 12/10/12 Previous Medication Trials: [...] ER visit for cyclic vomiting; hospitalization at [facility] 05/03 (72 hr hold); 12/01 at [facility] History of Suicide Attempts: no Under the care of Dr. Rafat Falcon for mental health care. [facility] . Initial intake 12/10/12 Previous Medication Trials: [...] ER visit for cyclic vomiting; hospitalization at [facility] 05/03 (72 hr hold); 12/01 at [facility] History of Suicide Attempts: no Under the care of Dr. Rafat Falcon for mental health care. [facility] . Initial intake 12/10/12 Previous Medication Trials: [...] ER visit for cyclic vomiting; hospitalization at [facility] 05/03 (72 hr hold); 12/01 at [facility] History of Suicide Attempts: no [...] Department Care Team Description 07/12/2024 10:10 PM DURALUMIN MECHANIC - 07/13/2024 6:40 AM [facility] Emergency Department [facility] [place] [address] Jack Cornejo MD Mott, Sarah E, MD Nausea and vomiting, unspecified vomiting type Discharge Disposition: Home or Self Care 07/12/2024 Documentation Only [facility] [address] [facility] [address] [place] [address] Christine Ugarte Advance Care Planning 07/11/2024 3:18 PM D[facility]UMIN MECHANIC - 07/11/2024 6:55 PM D[facility]UMIN MECHANIC Emergency [facility] Emergency Department [address] [place] [phone] Clinton Franklin DO Cyclic vomiting syndrome Discharge Disposition: Home or Self Care 07/11/2024 Travel 07/05/2024 Documentation Only [facility] [address] [facility] [address] [place] [address] Christine Ugarte Advance Care Planning 06/27/2024 8:29 AM [facility]UMIN MECHANIC - 06/27/2024 11:56 AM D[facility]UMIN MECHANIC Emergency [facility] Emergency Department [address] [place] [phone] Ronda Ugarte MD Anxiety reaction Discharge Disposition: Home or Self Care 06/27/2024 Travel 06/23/2024 3:12 PM DURALUMIN MECHANIC - 06/26/2024 10:15 AM D[facility]UMIN MECHANIC Emergency [facility] [address] [place] [phone] Yamil Espinosa MD Kelly, Ryan, MD Saadaeijahromi, Hannaneh, MD Tachycardia, unspecified (Primary Dx); Hyponatremia; Nausea and vomiting, unspecified vomiting type Discharge Disposition: IRTS - Intensive Residential Treatment Program 06/23/2024 Travel 06/14/2024 8:09 PM DURALUMIN MECHANIC - 06/17/2024 12:53 PM D[facility]UMIN MECHANIC Hospital Encounter [facility] Med Surg [address] [place] [phone] Clinton Smith MD Mangaudis, Rachael, MD Maddury, Sai Priya, MD Tremor (Primary Dx); Alcohol withdrawal, with unspecified complication (H); Hematemesis with nausea; Tachycardia, unspecified; Upper GI bleed; Gastroesophageal reflux disease with esophagitis without hemorrhage Discharge Disposition: Home or Self Care 06/14/2024 Travel 06/01/2024 11:29 AM DURALUMIN MECHANIC Anesthesia Event [facility] [address] [place] [address] Guzman Randall MD Kadiyala, Mamatha, MD 06/01/2024 11:00 AM D[facility]UMIN MECHANIC - 06/01/2024 11:35 AM DURALUMIN MECHANIC Surgery [facility] [address] [place] [phone] Chas Perez MD Esophagoscopy, gastroscopy, duodenoscopy (EGD), combined 05/29/2024 5:40 AM DURALUMIN MECHANIC - 06/01/2024 5:10 PM DURALUMIN MECHANIC Hospital Encounter [facility] [address] [place] [address] [place] [address] Pankaj Sidhu MD Jones, MD Christy Thomas [...] in an abandoned building, in an overnight snf, or couch-surfing.) Yes 06/23/2024 Are you worried [...] Comments Blood Pressure 122/60 07/13/2024 6:16 AM DURALUMIN MECHANIC Pulse 117 07/12/2024 10:01 PM DURALUMIN MECHANIC Temperature 36.7 C (98.1 F) 07/12/2024 10:01 PM DURALUMIN MECHANIC Respiratory Rate 30 07/12/2024 10:01 PM DURALUMIN MECHANIC Oxygen Saturation 100% 07/12/2024 10:01 PM DURALUMIN MECHANIC Inhaled Oxygen Concentration - - Weight 98.9 kg (218 lb) 07/12/2024 10:01 PM DURALUMIN MECHANIC Height 182.9 cm (6') 07/11/2024 3:12 PM DURALUMIN MECHANIC Body Mass Index 29.57 07/11/2024 3:12 PM DURALUMIN MECHANIC Plan of Treatment Health Maintenance Due Date [...] REFLEX TO CULTURE STAT 07/13/2024 4:26 AM DURALUMIN MECHANIC CBC WITH PLATELETS & DIFFERENTIAL STAT 07/13/2024 1:19 AM DURALUMIN MECHANIC CBC WITH PLATELETS AND DIFFERENTIAL STAT 07/13/2024 1:19 AM DURALUMIN MECHANIC LIPASE STAT 07/13/2024 1:19 AM DURALUMIN MECHANIC HEPATIC FUNCTION PANEL STAT 1:19 AM DURALUMIN MECHANIC BASIC METABOLIC PANEL STAT 07/13/2024 1:19 AM DURALUMIN MECHANIC CBC WITH PLATELETS & DIFFERENTIAL STAT 07/11/2024 3:25 PM DURALUMIN MECHANIC RBC AND PLATELET MORPHOLOGY STAT 07/11/2024 3:25 PM DURALUMIN MECHANIC CBC WITH PLATELETS AND DIFFERENTIAL STAT 07/11/2024 3:25 PM DURALUMIN MECHANIC LIPASE STAT 07/11/2024 3:25 PM DURALUMIN MECHANIC HEPATIC FUNCTION PANEL STAT 3:25 PM DURALUMIN MECHANIC BASIC METABOLIC PANEL STAT 07/11/2024 3:25 PM DURALUMIN MECHANIC EXTRA PURPLE TOP TUBE STAT 07/11/2024 3:25 PM DURALUMIN MECHANIC EXTRA GREEN TOP (LITHIUM HEPARIN) TUBE STAT 07/11/2024 3:25 PM DURALUMIN MECHANIC EXTRA TUBE STAT 07/11/2024 3:25 PM DURALUMIN MECHANIC CBC WITH PLATELETS & DIFFERENTIAL STAT 06/27/2024 8:36 AM DURALUMIN MECHANIC MAGNESIUM STAT 06/27/2024 8:36 AM DURALUMIN MECHANIC CBC WITH PLATELETS AND DIFFERENTIAL STAT 06/27/2024 8:36 AM DURALUMIN MECHANIC ETHYL ALCOHOL LEVEL STAT 06/27/2024 8 :36 AM DURALUMIN MECHANIC LIPASE STAT 06/27/2024 8:36 AM DURALUMIN MECHANIC HEPATIC FUNCTION PANEL STAT 8:36 AM DURALUMIN MECHANIC BASIC METABOLIC PANEL STAT 06/27/2024 8:36 AM DURALUMIN MECHANIC EXTRA PURPLE TOP TUBE STAT 06/27/2024 8:36 AM DURALUMIN MECHANIC EXTRA GREEN TOP (LITHIUM HEPARIN) TUBE STAT 06/27/2024 8:36 AM DURALUMIN MECHANIC EXTRA TUBE STAT 06/27/2024 8:36 AM DURALUMIN MECHANIC EXTRA PURPLE TOP TUBE Routine 06/25/2024 8:40 AM DURALUMIN MECHANIC EXTRA TUBE Routine 06/25/2024 8:40 AM DURALUMIN MECHANIC BASIC METABOLIC PANEL Routine 06/25/2024 8:40 AM DURALUMIN MECHANIC DRUG CONFIRMATION PANEL URINE WITH CREAT STAT 06/24/2024 5:29 PM DURALUMIN MECHANIC URINE CREATININE FOR DRUG SCREEN PANEL STAT 06/24/2024 5:29 PM DURALUMIN MECHANIC URINE DRUG CONFIRMATION PANEL STAT 06/24/2024 5:29 PM DURALUMIN MECHANIC URINE DRUG SCREEN STAT 06/24/2024 5:2 8 PM DURALUMIN MECHANIC URINE CREATININE FOR DRUG SCREEN PANEL STAT 06/24/2024 5:28 PM DURALUMIN MECHANIC THC CONFIRMATION QUANTITATIVE URINE STAT 06/24/2024 5:28 PM DURALUMIN MECHANIC BENZODIAZEPINES, URINE, QUANTITATIVE STAT 06/24/2024 5:28 PM DURALUMIN MECHANIC URINE DRUG SCREEN PANEL STAT 06/24/20 5:28 PM DURALUMIN MECHANIC PHOSPHATIDYLETHANOL (PETH), WHOLE BLOOD Routine 06/24/2024 8:14 AM DURALUMIN MECHANIC CBC WITH PLATELETS Routine 06/24/2024 8: 14 AM DURALUMIN MECHANIC COMPREHENSIVE METABOLIC PANEL Routine 06/24/2024 8:14 AM DURALUMIN MECHANIC EXTRA PURPLE TOP TUBE STAT 06/23/2024 6:19 PM DURALUMIN MECHANIC EXTRA TUBE STAT 06/23/2024 6:19 PM DURALUMIN MECHANIC LACTIC ACID WHOLE BLOOD STAT 06/23/20 24 6:19 PM DURALUMIN MECHANIC ABO/RH TYPE AND SCREEN STAT 4 3:49 PM DURALUMIN MECHANIC TYPE AND SCREEN, ADULT STAT 3:49 PM DURALUMIN MECHANIC LACTIC ACID WHOLE BLOOD WITH 1X REPEAT IN 2 HR WHEN >2 STAT 06/23/2024 3:49 PM DURALUMIN MECHANIC EKG 12-LEAD, TRACING ONLY STAT 2023 3:46 PM DURALUMIN MECHANIC CBC WITH PLATELETS & DIFFERENTIAL STAT 06/23/2024 3:42 PM DURALUMIN MECHANIC PHOSPHORUS Add-On 06/23/2024 3:42 PM DURALUMIN MECHANIC MAGNESIUM Add-On 06/23/2024 3:42 PM DURALUMIN MECHANIC PHOSPHORUS STAT 06/23/2024 3:42 PM DURALUMIN MECHANIC CBC WITH PLATELETS AND DIFFERENTIAL STAT 06/23/2024 3:42 PM DURALUMIN MECHANIC MAGNESIUM STAT 06/23/2024 3:42 PM DURALUMIN MECHANIC INR STAT 06/23/2024 3:42 PM DURALUMIN MECHANIC COMPREHENSIVE METABOLIC PANEL STAT 06/23/2024 3:42 PM DURALUMIN MECHANIC ETHYL ALCOHOL LEVEL STAT 06/23/2024 3 :42 PM DURALUMIN MECHANIC EXTRA PURPLE TOP TUBE STAT 06/23/2024 3:42 PM DURALUMIN MECHANIC EXTRA GREEN TOP (LITHIUM HEPARIN) TUBE STAT 06/23/2024 3:42 PM DURALUMIN MECHANIC EXTRA RED TOP TUBE STAT 06/23/2024 3: 42 PM DURALUMIN MECHANIC EXTRA BLUE TOP TUBE STAT 06/23/2024 3 :42 PM DURALUMIN MECHANIC EXTRA TUBE STAT 06/23/2024 3:42 PM DURALUMIN MECHANIC CBC WITH PLATELETS & DIFFERENTIAL Routine 06/17/2024 6:35 AM DURALUMIN MECHANIC CBC WITH PLATELETS AND DIFFERENTIAL Routine 06/17/2024 6:35 AM DURALUMIN MECHANIC PHOSPHORUS Routine 06/17/2024 6:35 AM DURALUMIN MECHANIC MAGNESIUM Routine 06/17/2024 6:35 AM DURALUMIN MECHANIC COMPREHENSIVE METABOLIC PANEL Routine 06/17/2024 6:35 AM DURALUMIN MECHANIC POTASSIUM Timed 06/16/2024 11:47 PM DURALUMIN MECHANIC PHOSPHORUS Routine 06/16/2024 1:14 PM DURALUMIN MECHANIC POTASSIUM Timed 06/16/2024 1:14 PM DURALUMIN MECHANIC CBC WITH PLATELETS & DIFFERENTIAL Routine 06/16/2024 7:52 AM DURALUMIN MECHANIC CBC WITH PLATELETS AND DIFFERENTIAL Routine 06/16/2024 7:52 AM DURALUMIN MECHANIC COMPREHENSIVE METABOLIC PANEL Routine 06/16/2024 7:52 AM DURALUMIN MECHANIC PHOSPHORUS Routine 06/16/2024 2:24 AM DURALUMIN MECHANIC MAGNESIUM Routine 06/16/2024 2:24 AM DURALUMIN MECHANIC POTASSIUM Timed 06/16/2024 2:24 AM DURALUMIN MECHANIC POTASSIUM Timed 06/16/2024 1:35 AM DURALUMIN MECHANIC POTASSIUM Routine 06/15/2024 5:38 PM DURALUMIN MECHANIC TROPONIN T, HIGH SENSITIVITY Timed 06/15/2024 3:43 PM DURALUMIN MECHANIC ROUTINE UA WITH MICROSCOPIC REFLEX TO CULTURE STAT 06/15/2024 12:36 PM DURALUMIN MECHANIC EXTRA PURPLE TOP TUBE Routine 06/15/2024 11:07 AM DURALUMIN MECHANIC EXTRA TUBE Routine 06/15/2024 11:07 AM DURALUMIN MECHANIC TROPONIN T, HIGH SENSITIVITY STAT 06/15/2024 11:07 AM DURALUMIN MECHANIC POTASSIUM Timed 06/15/2024 11:07 AM DURALUMIN MECHANIC EKG 12-LEAD, TRACING ONLY STAT 2023 11:00 AM DURALUMIN MECHANIC CBC WITH PLATELETS & DIFFERENTIAL STAT 06/15/2024 10:08 AM DURALUMIN MECHANIC EXTRA GREEN TOP (LITHIUM HEPARIN) TUBE Routine 06/15/2024 10:08 AM DURALUMIN MECHANIC EXTRA TUBE Routine 06/15/2024 10:08 AM DURALUMIN MECHANIC CBC WITH PLATELETS AND DIFFERENTIAL STAT 06/15/2024 10:08 AM DURALUMIN MECHANIC POTASSIUM Routine 06/15/2024 7:17 AM DURALUMIN MECHANIC INR Timed 06/15/2024 3:56 AM DURALUMIN MECHANIC PHOSPHORUS Timed 06/15/2024 3:56 AM DURALUMIN MECHANIC MAGNESIUM Timed 06/15/2024 3:56 AM DURALUMIN MECHANIC COMPREHENSIVE METABOLIC PANEL Timed 06/15/2024 3:56 AM DURALUMIN MECHANIC PHOSPHORUS Add-On 06/14/2024 9:13 PM DURALUMIN MECHANIC ETHYL ALCOHOL LEVEL STAT 06/14/2024 9 :13 PM DURALUMIN MECHANIC EKG 12-LEAD, TRACING ONLY STAT 2023 8:56 PM DURALUMIN MECHANIC ABO/RH TYPE AND SCREEN STAT 8:24 PM DURALUMIN MECHANIC CBC WITH PLATELETS & DIFFERENTIAL STAT 06/14/2024 8:24 PM DURALUMIN MECHANIC TYPE AND SCREEN, ADULT STAT 8:24 PM DURALUMIN MECHANIC MAGNESIUM STAT 06/14/2024 8:24 PM DURALUMIN MECHANIC LIPASE STAT 06/14/2024 8:24 PM DURALUMIN MECHANIC EXTRA BLOOD BANK PURPLE TOP TUBE STAT 06/14/2024 8:24 PM DURALUMIN MECHANIC CBC WITH PLATELETS AND DIFFERENTIAL STAT 06/14/2024 8:24 PM DURALUMIN MECHANIC ETHYL ALCOHOL LEVEL STAT 06/14/2024 8 :24 PM DURALUMIN MECHANIC EXTRA TUBE STAT 06/14/2024 8:24 PM DURALUMIN MECHANIC COMPREHENSIVE METABOLIC PANEL STAT 06/14/2024 8:24 PM DURALUMIN MECHANIC HEMOGLOBIN Timed 06/01/2024 1:49 PM DURALUMIN MECHANIC UGI ENDOSCOPY DIAG W OR W/O BRUSH/WASH 06/01/2024 11:30 AM DURALUMIN MECHANIC Hematemesis UPPER GI ENDOSCOPY Routine 06/01/2024 11:25 AM DURALUMIN MECHANIC PHOSPHORUS Add-On 06/01/2024 5:41 AM DURALUMIN MECHANIC HEMOGLOBIN Timed 06/01/2024 5:41 AM DURALUMIN MECHANIC MAGNESIUM Routine 06/01/2024 5:41 AM DURALUMIN MECHANIC CBC WITH PLATELETS Routine 06/01/2024 5: 41 AM DURALUMIN MECHANIC BASIC METABOLIC PANEL Routine 06/01/2024 5:41 AM DURALUMIN MECHANIC HEMOGLOBIN Timed 05/31/2024 11:51 PM DURALUMIN MECHANIC HEMOGLOBIN Timed 05/31/2024 5:54 PM DURALUMIN MECHANIC PHOSPHORUS Timed 05/31/2024 5:50 PM DURALUMIN MECHANIC HEMOGLOBIN Timed 05/31/2024 2:39 PM DURALUMIN MECHANIC HEPATIC FUNCTION PANEL Add-On 5:35 AM DURALUMIN MECHANIC CBC WITH PLATELETS Routine 05/31/2024 5: 35 AM DURALUMIN MECHANIC BASIC METABOLIC PANEL Routine 05/31/2024 5:35 AM DURALUMIN MECHANIC MAGNESIUM Routine 05/31/2024 5:35 AM DURALUMIN MECHANIC PHOSPHORUS Routine 05/31/2024 5:35 AM DURALUMIN MECHANIC HEMOGLOBIN Timed 05/30/2024 10:41 PM DURALUMIN MECHANIC MAGNESIUM Routine 05/30/2024 10:41 PM DURALUMIN MECHANIC POTASSIUM Timed 05/30/2024 10:41 PM DURALUMIN MECHANIC GLUCOSE BY METER Routine 05/30/2024 10:40 PM DURALUMIN MECHANIC HEMOGLOBIN Timed 05/30/2024 8:19 PM DURALUMIN MECHANIC TRANSFUSE RED BLOOD CELLS (UNIT) STAT 05/30/2024 4:17 PM DURALUMIN MECHANIC PREPARE RED BLOOD CELLS (UNIT) STAT 05/30/2024 3:40 PM DURALUMIN MECHANIC PREPARE RED BLOOD CELLS (UNIT) Routine 05/30/2024 2:27 PM DURALUMIN MECHANIC PREPARE RED BLOOD CELLS (UNIT) STAT 05/30/2024 1:57 PM DURALUMIN MECHANIC MAGNESIUM Routine 05/30/2024 12:02 PM DURALUMIN MECHANIC POTASSIUM Timed 05/30/2024 12:02 PM DURALUMIN MECHANIC HEMOGLOBIN Timed 05/30/2024 12:02 PM DURALUMIN MECHANIC BASIC METABOLIC PANEL Timed 05/30/2024 12:02 PM DURALUMIN MECHANIC PICC TRIPLE LUMEN PLACEMENT Routine 05/30/2024 10:44 AM DURALUMIN MECHANIC CBC WITH PLATELETS & DIFFERENTIAL STAT 05/30/2024 5:50 AM DURALUMIN MECHANIC CBC WITH PLATELETS AND DIFFERENTIAL STAT 05/30/2024 5:50 AM DURALUMIN MECHANIC HEMOGLOBIN Timed 05/30/2024 5:50 AM DURALUMIN MECHANIC BASIC METABOLIC PANEL Timed 05/30/2024 5:50 AM DURALUMIN MECHANIC HEMOGLOBIN Timed 05/29/2024 11:55 PM DURALUMIN MECHANIC BASIC METABOLIC PANEL Timed 05/29/2024 11:55 PM DURALUMIN MECHANIC OSMOLALITY Timed 05/29/2024 5:51 PM DURALUMIN MECHANIC HEMOGLOBIN Timed 05/29/2024 5:51 PM DURALUMIN MECHANIC BASIC METABOLIC PANEL Timed 05/29/2024 5:51 PM DURALUMIN MECHANIC LACTIC ACID WHOLE BLOOD STAT 05/29/20 4:41 PM DURALUMIN MECHANIC HEMOGLOBIN STAT 05/29/2024 3:00 PM DURALUMIN MECHANIC HEMOGLOBIN STAT 05/29/2024 11:55 AM DURALUMIN MECHANIC BASIC METABOLIC PANEL STAT 05/29/2024 11:55 AM DURALUMIN MECHANIC MAGNESIUM STAT 05/29/2024 11:55 AM DURALUMIN MECHANIC URINE DRUG SCREEN STAT 05/29/2024 9:3 5 AM DURALUMIN MECHANIC FIBRINOGEN ACTIVITY STAT Add-on 05/29/2024 9 :35 AM DURALUMIN MECHANIC OSMOLALITY, RANDOM URINE Add-On 024 9:35 AM DURALUMIN MECHANIC SODIUM RANDOM URINE Add-On 05/29/2024 9 :35 AM DURALUMIN MECHANIC URINE DRUG SCREEN PANEL STAT 05/29/20 24 9:35 AM DURALUMIN MECHANIC INR STAT 05/29/2024 9:35 AM DURALUMIN MECHANIC EKG 12-LEAD, TRACING ONLY STAT 2023 7:13 AM DURALUMIN MECHANIC ISTAT GASES ELECTROLYTES ICA GLUCOSE VENOUS POCT STAT 05/29/2024 7:11 AM DURALUMIN MECHANIC ABO/RH TYPE AND SCREEN STAT 4 7:09 AM DURALUMIN MECHANIC TYPE AND SCREEN, ADULT STAT 7:09 AM DURALUMIN MECHANIC CBC WITH PLATELETS & DIFFERENTIAL STAT 05/29/2024 6:59 AM DURALUMIN MECHANIC PHOSPHORUS STAT 05/29/2024 6:59 AM DURALUMIN MECHANIC RBC AND PLATELET MORPHOLOGY STAT 05/29/2024 6:59 AM DURALUMIN MECHANIC CBC WITH PLATELETS AND DIFFERENTIAL STAT 05/29/2024 6:59 AM DURALUMIN MECHANIC MAGNESIUM STAT 05/29/2024 6:59 AM DURALUMIN MECHANIC ETHYL ALCOHOL LEVEL STAT 05/29/2024 6 :59 AM DURALUMIN MECHANIC LIPASE STAT 05/29/2024 6:59 AM DURALUMIN MECHANIC COMPREHENSIVE METABOLIC PANEL STAT 05/29/2024 6:59 AM DURALUMIN MECHANIC ALCOHOL BREATH TEST POCT STAT 024 5:48 AM DURALUMIN MECHANIC from Last 3 Months Results * (ABNORMAL) UA with Microscopic reflex to Culture (07/13/2024 4:26 AM DURALUMIN MECHANIC) Only the most recent of2 resultswithin the time period is included. Color Urine Light Yellow Colorless, Straw, Light Yellow, Yellow 07/13/2024 4:49 AM DURALUMIN MECHANIC [facility] Appearance Urine Clear Clear 07/13/20 4:49 AM DURALUMIN MECHANIC [facility] Glucose Urine Negative Negative mg/dL 07/13/2024 4:49 AM DURALUMIN MECHANIC [facility] Bilirubin Urine Negative Negative 4:49 AM DURALUMIN MECHANIC [facility] Ketones Urine 40(A) Negative mg/dL 07/13/2024 4:49 AM DURALUMIN MECHANIC [facility] Specific Kimberly Urine 1.017 1.001 - 1.030 07/13/2024 4:49 AM DURALUMIN MECHANIC [facility] Blood Urine Negative Negative 07/13/2024 4:49 AM DURALUMIN MECHANIC [facility] pH Urine 6.0 5.0 - 7.0 07/13/2024 4:49 AM DURALUMIN MECHANIC [facility] Protein Albumin Urine Negative Negative mg/dL 07/13/2024 4:49 AM DURALUMIN MECHANIC [facility] Urobilinogen Urine <2.0 <2.0 mg/dL 07/13/2024 4:49 AM DURALUMIN MECHANIC [facility] Nitrite Urine Negative Negative 07/13/2024 4:49 AM DURALUMIN MECHANIC [facility] Leukocyte Esterase Urine Negative Negative 07/13/2024 4:49 AM DURALUMIN MECHANIC [facility] RBC Urine 1 <=2 /HPF 07/13/2024 4:49 AM DURALUMIN MECHANIC [facility] WBC Urine 1 <=5 /HPF 07/13/2024 4:49 AM DURALUMIN MECHANIC [facility] Urine URINE SPECIMEN OBTAINED BY CLEAN CATCH PROCEDURE / Unknown Non-blood Collection / Unknown 07/13/2024 4:26 AM DURALUMIN MECHANIC 07/13/2024 4:40 AM DURALUMIN MECHANIC Narrative [facility] - 07/13/2024 4:49 AM DURALUMIN MECHANIC Urine Culture not indicated us Jack Cornejo MD LAB - URINE ORDERABLES Final Res ult [facility] [address] [place] [address], [facility] * (ABNORMAL) CBC with platelets and differential (07/13/2024 1:19 AM DURALUMIN MECHANIC) Only the most recent of10 resultswithin the time period is included. WBC Count 13.1(H) 4.0 - 11.0 10e3/uL 07/13/2024 1:27 AM DURALUMIN MECHANIC [facility] RBC Count 4.08(L) 4.40 - 5.90 10e6/uL 07/13/2024 1:27 AM DURALUMIN MECHANIC [facility] Hemoglobin 10.2(L) 13.3 - 17.7 g/dL 07/13/2024 1:27 AM DURALUMIN MECHANIC [facility] Hematocrit 30.8(L) 40.0 - 53.0 % 07/13/2024 1:27 AM DURALUMIN MECHANIC [facility] MCV 76(L) 78 - 100 fL 07/13/2024 1:27 AM DURALUMIN MECHANIC [facility] MCH 25.0(L) 26.5 - 33.0 pg 07/13/2024 1:27 AM DURALUMIN MECHANIC [facility] MCHC 33.1 31.5 - 36.5 g/dL 07/13/2024 1:27 AM DURALUMIN MECHANIC [facility] RDW 17.6(H) 10.0 - 15.0 % 07/13/2024 1:27 AM DURALUMIN MECHANIC [facility] Platelet Count 462(H) 150 - 450 10e3/uL 07/13/2024 1:27 AM DURALUMIN MECHANIC [facility] % Neutrophils 73 % 07/13/2024 1:27 AM DURALUMIN MECHANIC [facility] % Lymphocytes 16 % 07/13/2024 1:27 AM DURALUMIN MECHANIC [facility] % Monocytes 11 % 07/13/2024 1:27 AM DURALUMIN MECHANIC [facility] % Eosinophils 0 % 07/13/2024 1:27 AM DURALUMIN MECHANIC [facility] % Basophils 0 % 07/13/2024 1:27 AM DURALUMIN MECHANIC [facility] % Immature Granulocytes 0 % 07/13/2024 1:27 AM DURALUMIN MECHANIC [facility] NRBCs per 100 WBC 0 <1 /100 024 1:27 AM DURALUMIN MECHANIC [facility] Absolute Neutrophils 9.5(H) 1.6 - 8.3 10e3/uL 07/13/2024 1:27 AM DURALUMIN MECHANIC [facility] Absolute Lymphocytes 2.1 0.8 - 5.3 10e3/uL 07/13/2024 1:27 AM DURALUMIN MECHANIC [facility] Absolute Monocytes 1.4(H) 0.0 - 1.3 10e3/uL 07/13/2024 1:27 AM DURALUMIN MECHANIC [facility] Absolute Eosinophils 0.1 0.0 - 0.7 10e3/uL 07/13/2024 1:27 AM DURALUMIN MECHANIC [facility] Absolute Basophils 0.0 0.0 - 0.2 10e3/uL 07/13/2024 1:27 AM DURALUMIN MECHANIC [facility] Absolute Immature Granulocytes 0.1 <=0.4 10e3/uL 07/13/2024 1:27 AM DURALUMIN MECHANIC [facility] Absolute NRBCs 0.0 10e3/uL 07/13/2024 1:27 AM [employer] [facility] Blood BLOOD SPECIMEN / Unknown Venipuncture / Unknown 07/13/2024 1:19 AM [employer] 07/13/2024 1:23 AM [employer] us Jack Cornejo MD LAB - BLOOD ORDERABLES Final Res ult [facility] [address] [place] [address], [facility] * Lipase (07/13/2024 1:19 AM [employer]) Only the most recent of5 resultswithin the time period is included. Lipase 27 13 - 60 U/L 07/13/2024 3:10 AM [facility] Blood BLOOD SPECIMEN / Unknown Venipuncture / Unknown 07/13/2024 1:19 AM [employer] 07/13/2024 1:23 AM [employer] us Jack Cornejo MD LAB - BLOOD ORDERABLES Final Res ult Performing Organization Address City/[facility]/ZIP Co de Phone Number [facility] [address] [place] [address], [facility] * Hepatic function panel (07/13/2024 1:19 AM [employer]) Only the most recent of4 resultswithin the time period is included. Protein Total 6.8 6.4 - 8.3 g/dL 07/13/2024 3:16 AM [facility] Albumin 4.4 3.5 - 5.2 g/dL 07/13/2024 3:16 AM [facility] Bilirubin Total 0.9 <=1.2 mg/dL 07/13/2024 3:16 AM [facility] Alkaline Phosphatase 78 40 - 150 U/L 07/13/2024 3:16 AM [facility] AST 07/13/2024 3:16 AM [facility] Comment:Unsatisfactory speci men - lipemic ALT 07/13/2024 3:16 AM [facility] Comment:Unsatisfactory speci men - lipemic Bilirubin Direct 07/13/20 3:16 AM [facility] Comment:Unsatisfactory speci men - lipemic Blood BLOOD SPECIMEN / Unknown Venipuncture / Unknown 07/13/2024 1:19 AM [employer] 07/13/2024 1:23 AM [employer] Jack Cornejo MD LAB - BLOOD ORDERABLES Final Res ult [facility] [address] [place] [address], [facility] * (ABNORMAL) Basic metabolic panel (07/13/2024 1:19 AM [employer]) Only the most recent of11 resultswithin the time period is included. Sodium 127(L) 135 - 145 mmol/L 07/13/2024 3:15 AM [facility] Potassium 4.4 3.4 - 5.3 mmol/L 07/13/2024 3:15 AM [facility] Chloride 91(L) 98 - 107 mmol/L 07/13/2024 3:15 AM [facility] Carbon Dioxide (CO2) 23 22 - 29 mmol/L 07/13/2024 3:15 AM [facility] Anion Gap 13 7 - 15 mmol/L 07/13/2024 3:15 AM [facility] Urea Nitrogen 22.0(H) 6.0 - 20.0 mg/dL 07/13/2024 3:15 AM [facility] Creatinine 0.92 0.67 - 1.17 mg/dL 07/13/2024 3:15 AM [facility] GFR Estimate >90 >60 mL/min/1.7 3m2 07/13/2024 3:15 AM [facility] Comment:eGFR calculated us2020 CKD-EPI equation. Calcium 9.6 8.8 - 10.4 mg/dL 07/13/2024 3:15 AM [facility] Comment:Reference intervals for this test were updated on 02/03/2024 to reflect our healthy population more accurately. There may be differences in the flagging of prior results with similar values performed with this method. Those prior results can be interpreted in the context of the updated reference intervals. Glucose 91 70 - 99 mg/dL 07/13/2024 3:15 AM [facility] Blood BLOOD SPECIMEN / Unknown Venipuncture / Unknown 07/13/2024 1:19 AM [facility] 07/13/2024 1:23 AM [facility] Jack Cornejo MD LAB - BLOOD ORDERABLES Final Res ult [facility] [address] [place] [address], [facility] * Extra Purple Top Tube (07/11/2024 3:25 PM [employer]UM[employer] MECHAN[employer]) Only the most recent of6 resultswithin the time period is included. Hold Specimen [facility] 07/11/2024 4:[address] [facility] Blood VENOUS LINE / Unknown Venipuncture / Unknown 07/11/2024 3:25 PM [facility] 07/11/2024 3:30 PM [employer] Afshin Chisholm MD LAB - BLOOD ORDERABLES Final Result Performing Organization Address City/[facility] Co de Phone Number [facility] [address] [place] [address], [facility] * Extra Green Top ([place] Heparin) Tube (07/11/2024 3:25 PM D[employer]UM[employer] MECHANIC) Only the most recent of4 resultswithin the time period is included. Hold Specimen [facility] 07/11/2024 4:[address] [facility] Blood VENOUS LINE / Unknown Venipuncture / Unknown 07/11/2024 3:25 PM [facility] 07/11/2024 3:30 PM [employer]CH[employer] Afshin Chisholm MD LAB - BLOOD ORDERABLES Final Result Performing Organization Address City/[facility]/ZIP Co de Phone Number [facility] [address] [place] [address], [facility] * RBC and Platelet Morphology (07/11/2024 3:25 PM [employer] MECHAN[employer]) Only the most recent of2 resultswithin the time period is included. RBC Morphology Confirmed RBC Indices 07/11/2024 4:[address] [facility] Platelet Assessment Automated Count Confirmed. Platelet morphology is normal. Automated Count Confirmed. Platelet morphology is normal. ALBERTO 07/11/2024 4:[address] [facility] Blood VENOUS LINE / Unknown Venipuncture / Unknown 07/11/2024 3:25 PM [employer] [employer]CH[employer] 07/11/2024 3:30 PM [employer] Clinton Franklin DO LAB - BLOOD ORDERABLES Final R esult Performing Organization Address [facility] de Phone Number [facility] [address] * Magnesium (06/27/2024 8:36 AM [employer]UM[employer] MECHANIC) Only the most recent of13 resultswithin the time period is included. Magnesium 1.9 1.7 - 2.3 mg/dL 06/27/2024 9:[address] [facility] Blood BLOOD SPECIMEN / Unknown Venipuncture / Unknown 06/27/2024 8:36 AM [employer] [facility]CH[employer] 06/27/2024 8:39 AM [employer]CH[employer]IC us Ronda Ugarte MD LAB - BLOOD ORDERABLES Final Re sult Performing Organization Address [facility] de Phone Number [facility] [address] * Ethyl Alcohol Level (06/27/2024 8:36 AM [employer]UM[employer] MECHANIC) Only the most recent of5 resultswithin the time period is included. Alcohol ethyl <0.01 <=0.01 g/dL 06/27/2024 9:[address] [facility] Blood BLOOD SPECIMEN / Unknown Venipuncture / Unknown 06/27/2024 8:36 AM [employer] MECH[employer]IC 06/27/2024 8:39 AM D[employer]UMIN MECHANIC us Ronda Ugarte MD LAB - BLOOD ORDERABLES Final Re sult Performing Organization Address [facility] de Phone Number [facility] [address] * Urine Creatinine for Drug Screen Panel (06/24/2024 5:29 PM D[employer]UMIN MECHANIC) Only the most recent of2 resultswithin the time period is included. Creatinine Urine for Drug Screen 57 mg/dL 06/24/2024 6:26 PM [facility] Comment:The reference range has not been established for creatinine in random urines. The results should be integrated into the clinical context for interpretation. Urine URINE SPECIMEN OBTAINED BY CLEAN CATCH PROCEDURE / Unknown Non-blood Collection / Unknown 06/24/2024 5:29 PM [employer] 06/24/2024 5:57 PM [employer]IN MECHANIC us Osmar Kitchen MD LAB - URINE ORDERABLES Final Res ult UR LABORATORY [facility] [address], [address] [place] [id number] [place] [address] * (ABNORMAL) Urine Drug Confirmation Panel (06/24/2024 5:29 PM [employer]UMIN MECHANIC) Nordiazepam Present(A ) Absent 06/30/2024 1:57 PM [facility]UMIN MECHANIC [facility] Comment:Nordiazepam is an ex pected metabolite of diazepam. Oxazepam Present(A ) Absent 06/30/2024 1:57 PM [facility]UMIN MECHANIC [facility] Comment:Oxazepam and temazep am are benzodiazepine drugs but may also be present as common metabolites of other benzodiazepine drugs, including diazepam, temazepam. Oxazepam and temazepam are also available as scheduled prescription medications. Temazepam Present(A ) Absent 06/30/2024 1:57 PM [facility]UMIN MECHANIC [facility] Comment:Oxazepam and temazep am are benzodiazepine drugs, but may also be present as common metabolites of other benzodiazepine drugs, including diazepam. Gabapentin (Neurontin) Present(A ) Absent 06/30/2024 1:57 PM [facility]UMIN MECHANIC [facility] Comment:Sources of gabapenti n are prescription medications. Urine URINE SPECIMEN OBTAINED BY CLEAN CATCH PROCEDURE / Unknown Non-blood Collection / Unknown 06/24/2024 5:29 PM [employer]UMIN MECHANIC 06/24/2024 5:57 PM [employer]UMIN MECHANIC Narrative SPECIAL DRUG/BG[facility] - 06/30/2024 1:57 PM D[employer]UMIN MECHANIC This test was developed and its performance characteristics determined by the [facility], Special Chemistry Laboratory. It has not [...] of 50 ng/mL: 7-AMINOCLONAZEPAM, 7-AMINOFLUNITRAZEPAM, ALPRAZOLAM, AMPHETAMINE, E-ML-NUWGGYWFFK, Y-NN-BBUFQUOKA, C-SY-MHLTQYEEY, BENZOYLECGONINE (Cocaine Metabolite), CLONAZEPAM, COCAETHYLENE (Cocaine Metabolite), CODEINE, DIAZEPAM, DIHYDROCODEINE, EDDP (Methadone Metabolite), HYDROCODONE, HYDROMORPHONE, LORAZEPAM, MDA (3,4-Methylenedioxyamphetamine), MDEA (3,8-Mqtvdjsocuqunn-N-ethylcathinone), MDMA (Methylenedioxyamphetamine,Ecstasy), MEPERIDINE, METHADONE, METHAMPHETAMINE, METHYLPHENIDATE (Ritalin), MORPHINE, NALTREXONE, P-JOASHFH-XLQSLJVHCW, NORCODEINE, NORDIAZEPAM, NORMEPERIDINE, F-FRG-BFIIRAIL, OXAZEPAM, OXYCODONE, OXYMORPHONE, PROPOXYPHENE, RITALINIC ACID, TAPENTADOL, TEMAZEPAM, THEBAINE, TRAMADOL The following drugs are detected with a cutoff of 100 ng/mL: GABAPENTIN, KETAMINE The following drugs are detected with a cutoff of 200 ng/mL: PREGABALIN, XYLAZINE Providers with questions surrounding testing results should contact the Clinical Chemistry service line. Osmar Kitchen MD LAB - URINE ORDERABLES Final Res ult Performing Organization Address City/[facility]/ZIP Co de Phone Number [facility] [address] [facility], [address] [phone] * THC Confirmation Quantitative Urine (06/24/2024 5:28 PM D[employer]UMIN MECHANIC) THC Metabolite 358 ng/mL 07/03/2024 1:05 PM [facility]CHAN[facility] Comment: Positive cuttoff: 5 ng/mL Quantitative result is marijuana metabolite measured as 64-fbq-xgouv-9-qcxwfqp-MRI (carboxy-THC) by liquid chromatography with mass spectrometry [...] Ratio 628 ng/mg Creat 07/03/2024 1:05 PM [facility]CH[facility] Urine URINE SPECIMEN OBTAINED BY CLEAN CATCH PROCEDURE / Unknown Non-blood Collection / Unknown 06/24/2024 5:28 PM [employer]UMIN MECHANIC 06/24/2024 10:03 PM [employer]IN MECHANIC Narrative SPECIAL DRUG/BGEN - 07/03/2024 1:05 PM [employer]UMIN MECHANIC This test was developed and its performance characteristics determined by the [facility], Special Chemistry Laboratory. It has not been cleared or approved by the FDA. The laboratory is regulated under CLIA as qualified to perform high-complexity testing. This test is used for clinical purposes. It should not be regarded as investigational or for research. Osmar Kitchen MD LAB - URINE ORDERABLES Final Res ult [facility] Special Drug/[facility] [address] [facility], [address] [phone] * Benzodiazepines, Urine, Quantitative (06/24/2024 5:28 PM D[employer]UMIN MECHANIC) Diazepam, Urine <20 ng/mL 6:14 PM [facility]CH[facility]IC [facility] Comment:Cutoff: 20 ng/mL Oxazepam 377 ng/mL 06/28/2024 6:14 PM [facility]IN MECHANIC [facility] Comment:Cutoff: 20 ng/mL Temazepam, Urn, Quant 273 ng/mL 06/28/2024 6:14 PM [facility]IN MECH[facility] Comment:Cutoff: 20 ng/mL Nordiazepam, Urn, Quant 262 ng/mL 06/28/2024 6:14 PM [facility]UMIN MECHANIC [facility] Comment:Cutoff: 20 ng/mL Chlordiazepoxide, Urn, Quant <20 ng/mL 06/28/2024 6:14 PM [facility]UMIN MECHANIC [facility] Comment:Cutoff: 20 ng/mL Lorazepam <20 ng/mL 06/28/2024 6:14 PM [facility]UMIN MECHANIC [facility] Comment:Cutoff: 20 ng/mL Alprazolam <5 ng/mL 06/28/2024 6:14 PM [facility]IN MECHANIC [facility] Comment:Cutoff: 5 ng/mL Alpha-Hydroxytriazol am, Urine 21 ng/mL 06/28/2024 6:14 PM [facility]IN MECHANIC [facility] Comment:Cutoff: 5 ng/mL Clonazepam, Urine <5 ng/mL 024 6:14 PM D[facility]UMIN MECHANIC [facility] Comment:Cutoff: 5 ng/mL 7-aminoclonazepam, Urine <5 ng/mL 06/28/2024 6:14 PM [facility]UMIN MECHANIC [facility] Comment:Cutoff: 5 ng/mL Midazolam, Urine <20 ng/mL 06/28/20 24 6:14 PM [facility]UMIN MECHANIC [facility] Comment:Cutoff: 20 ng/mL Alpha-hydroxymidazol am, Urine <20 ng/mL 06/28/2024 6:14 PM [facility]IN MECHANIC [facility] Comment: Cutoff: 20 ng/mL INTERPRETIVE [...] developed and its performance characteristics determined by [facility]. It has not been cleared or approved by the US Food and Drug Administration. This test was performed in a CLIA certified laboratory and is intended for clinical purposes. Performed By: [facility] [address] [place] [address] Director Retirement: Edson Sheffield MD, PhD CLIA Number: [id number] Urine URINE SPECIMEN OBTAINED BY CLEAN CATCH PROCEDURE / Unknown Non-blood Collection / Unknown 06/24/2024 5:28 PM [employer]IN MECHANIC 06/24/2024 10:03 PM D[employer]UMIN MECHANIC us Osmar Kitchen MD LAB - URINE ORDERABLES Final Res ult [facility] [employer] [facility] [employer] [address] [place] [phone], [facility] [phone] * (ABNORMAL) Urine Drug Screen Panel (06/24/2024 5:28 PM D[employer]UMIN MECHANIC) Only the most recent of2 resultswithin the time period is included. Amphetamines Urine Screen Negative Screen Negative 06/24/2024 10:03 PM [facility]IN [facility]CHAN[facility] Comment:Cutoff for a negativ e amphetamine is less than 500 ng/mL. Barbituates Urine Screen Negative Screen Negative 06/24/2024 10:03 PM [facility]CH[facility] Comment:Cutoff for a negativ e barbiturate is less than 200 ng/mL. Benzodiazepine Urine Screen Positive(A) Screen Negative 06/24/2024 10:03 PM [facility] Comment: Cutoff for a positive benzodiazepine is 100 ng/mL or greater. This is an unconfirmed screening result to be used for medical purposes only. Cannabinoids Urine Screen Positive(A) Screen Negative 06/24/2024 10:03 PM [facility]IN MECHANIC [facility] Comment: Cutoff for a positive cannabinoid is 50 ng/mL or greater. This is an unconfirmed screening result to be used for medical purposes only. Cocaine Urine Screen Negative Screen Negative 06/24/2024 10:03 PM [facility] Comment:Cutoff for a negativ e cocaine is less than 300 ng/mL. Fentanyl Qual Urine Screen Negative Screen Negative 06/24/2024 10:03 PM [facility]CH[facility] Comment:Cutoff for negative fentanyl is less than 5 ng/mL. Opiates Urine Screen Negative Screen Negative 06/24/2024 10:03 PM [facility]IN [facility]CH[facility] Comment:Cutoff for a negativ e opiate is less than 300 ng/mL. PCP Urine Screen Negative Screen Negative 06/24/2024 10:03 PM [facility]CH[facility] Comment:Cutoff for a negativ e PCP is less than 25 ng/mL. Urine URINE SPECIMEN OBTAINED BY CLEAN CATCH PROCEDURE / Unknown Non-blood Collection / Unknown 06/24/2024 5:28 PM [employer]IN MECHANIC 06/24/2024 9:43 PM [employer]IN MECHANIC us Osmar Kitchen MD LAB - URINE ORDERABLES Final Res ult UR LABORATORY [facility] [address], [address] [phone] * Phosphatidylethanol (PEth), Whole Blood (06/24/2024 8:14 AM DURALUMIN MECHANIC) PEth 16:0/18:1 (POPEth) 71 ng/mL 06/26/2024 12:33 PM [facility]UMIN MECHANIC [facility] Comment: PEth 16:0/18:1 (POPEth) Less than 10 ng/mL............Not detected Less than 20 ng/mL............Abstinence or light alcohol consumption 20 - 200 ng/mL................Moderate alcohol consumption Greater than 200 ng/mL........Heavy alcohol consumption or chronic alcohol use (Reference: Arlette Marcos and Shira Bassett 2018 J. Forensic Sci) PEth 16:0/18:2 (PLPEth) 28 ng/mL 06/26/2024 12:33 PM D[facility]UMIN MECHANIC [facility] Comment:Reference ranges are not well established. EER Phosphatidylethanol (PETH) See Note 06/26/2024 12:33 PM D[facility]UMIN MECHANIC [facility] Comment: Authorized individuals can access the [facility] Enhanced Report using the following link: [email or web address] PEth Interpretation See Comment 06/26/2024 12:33 PM DURALUMIN MECHANIC [email or web address] Comment: Phosphatidylethanol (PEth) is a group of [...] may have falsely elevated PEth concentrations (Malu AZROLA et al 2018, Alcoholism Clinical & Experimental Research). This test was developed and its performance characteristics determined by [facility]. It has not been cleared or approved by the U.S. Food and Drug Administration. This test was performed in a CLIA-certified laboratory and is intended for clinical purposes. Performed By: [facility] [address] [place] [id number] Director Retirement: Edson Sheffield MD, PhD CLIA Number: [id number] Blood BLOOD SPECIMEN / Unknown Venipuncture / Unknown 06/24/2024 8:14 AM DURALUMIN MECHANIC 06/24/2024 8:39 AM DURALUMIN MECHANIC us Osmar Kitchen MD LAB - BLOOD ORDERABLES Final Res ult [facility] [address] [place] [phone], [facility] [phone] * (ABNORMAL) Comprehensive metabolic panel (06/24/2024 8:14 AM DURALUMIN MECHANIC) Only the most recent of7 resultswithin the time period is included. Sodium 135 135 - 145 mmol/L 06/24/2024 11:15 AM DURALUMIN MECHANIC [facility] Potassium 3.5 3.4 - 5.3 mmol/L 06/24/2024 11:15 AM DURALUMIN MECHANIC [facility] Carbon Dioxide (CO2) 27 22 - 29 mmol/L 06/24/2024 11:15 AM D[facility]UMIN MECHANIC [facility] Anion Gap 13 7 - 15 mmol/L 06/24/2024 11:15 AM [facility]UMIN MECHANIC [facility] Urea Nitrogen 13.0 6.0 - 20.0 mg/dL 06/24/2024 11:15 AM D[facility]UMIN MECHANIC [facility] Creatinine 1.18(H) 0.67 - 1.17 mg/dL 06/24/2024 11:15 AM DURALUMIN MECHANIC [facility] GFR Estimate 86 >60 mL/min/1.7 3m2 06/24/2024 11:15 AM D[facility]UMIN MECHANIC [facility] Comment:eGFR calculated usin 2020 CKD-EPI equation. Calcium 9.4 8.8 - 10.4 mg/dL 06/24/2024 11:15 AM DURALUMIN MECHANIC [facility] Comment:Reference intervals for this test were updated on 02/03/2024 to reflect our healthy population more accurately. There may be differences in the flagging of prior results with similar values performed with this method. Those prior results can be interpreted in the context of the updated reference intervals. Chloride 95(L) 98 - 107 mmol/L 06/24/2024 11:15 AM DURALUMIN MECHANIC [facility] Glucose 111(H) 70 - 99 mg/dL 06/24/2024 11:15 AM D[facility]UMIN MECHANIC [facility] Alkaline Phosphatase 78 40 - 150 U/L 06/24/2024 11:15 AM D[facility]UMIN MECHANIC [facility] AST 15 0 - 45 U/L 06/24/2024 11:15 AM D[facility]UMIN MECHANIC [facility] ALT 15 0 - 70 U/L 06/24/2024 11:15 AM [facility]UMIN MECHANIC [facility] Protein Total 6.2(L) 6.4 - 8.3 g/dL 06/24/2024 11:15 AM D[facility]UMIN MECHANIC [facility] Albumin 4.2 3.5 - 5.2 g/dL 06/24/2024 11:15 AM [facility]UMIN MECHANIC [facility] Bilirubin Total 0.7 <=1.2 mg/dL 06/24/2024 11:15 AM [facility]UMIN MECHANIC [facility] Blood BLOOD SPECIMEN / Unknown Venipuncture / Unknown 06/24/2024 8:14 AM DURALUMIN MECHANIC 06/24/2024 8:39 AM DURALUMIN MECHANIC us Dillon Euceda PA-C LAB - BLOOD ORDERABLES Final Res ult UR LABORATORY [facility] Lab [address], [address] [phone] * (ABNORMAL) CBC with platelets (06/24/2024 8:14 AM DURALUMIN MECHANIC) Only the most recent of3 resultswithin the time period is included. WBC Count 9.8 4.0 - 11.0 10e3/uL 06/24/2024 8:50 AM DURALUMIN MECHANIC [facility] RBC Count 4.16(L) 4.40 - 5.90 10e6/uL 06/24/2024 8:50 AM DURALUMIN MECHANIC [facility] Hemoglobin 11.1(L) 13.3 - 17.7 g/dL 06/24/2024 8:50 AM DURALUMIN MECHANIC [facility] Hematocrit 33.5(L) 40.0 - 53.0 % 06/24/2024 8:50 AM DURALUMIN MECHANIC [facility] MCV 81 78 - 100 fL 06/24/2024 8:50 AM DURALUMIN MECHANIC [facility] MCH 26.7 26.5 - 33.0 pg 06/24/2024 8:50 AM DURALUMIN MECHANIC [facility] MCHC 33.1 31.5 - 36.5 g/dL 06/24/2024 8:50 AM DURALUMIN MECHANIC [facility] RDW 16.2(H) 10.0 - 15.0 % 06/24/2024 8:50 AM DURALUMIN MECHANIC [facility] Platelet Count 472(H) 150 - 450 10e3/uL 06/24/2024 8:50 AM DURALUMIN MECHANIC [facility] Blood BLOOD SPECIMEN / Unknown Venipuncture / Unknown 06/24/2024 8:14 AM DURALUMIN MECHANIC 06/24/2024 8:39 AM DURALUMIN MECHANIC us Dillon Euceda PA-C LAB - BLOOD ORDERABLES Final Res ult UR LABORATORY [facility] Acute [facility] Lab [address], [address] [place] [phone] * Lactic acid whole blood (06/23/2024 6:19 PM DURALUMIN MECHANIC) Only the most recent of2 resultswithin the time period is included. Pathologist [facility] Lactic Acid 1.1 0.7 - 2.0 mmol/L 06/23/2024 6:31 PM DURALUMIN MECHANIC [facility] Blood STRUCTURE OF RIGHT UPPER LIMB / Unknown Venipuncture / Unknown 06/23/2024 6:19 PM DURALUMIN MECHANIC 06/23/2024 6:27 PM DURALUMIN MECHANIC Yamil Espinosa MD LAB - BLOOD ORDERABLES Final R esult Performing Organization Address City/[facility]/ZIP Co de Phone Number LABORATORY [facility] [place] [facility] [address] [facility], [address] [place], [place] [phone] * (ABNORMAL) Lactic acid whole blood with 1x repeat in 2 hr when >2 (06/23/2024 3:49 PM DURALUMIN MECHANIC) [facility] Lactic Acid, Initial 2.2(H) 0.7 - 2.0 mmol/L 06/23/2024 4:11 PM DURALUMIN MECHANIC U LABORATORY Blood BLOOD SPECIMEN / Unknown Venipuncture / Unknown 06/23/2024 3:49 PM DURALUMIN MECHANIC 06/23/2024 3:59 PM DURALUMIN MECHANIC us Yamil Espinosa MD LAB - BLOOD ORDERABLES Final R esult LABORATORY [facility] [place] [facility] [address] [facility], [address] [place], [place] [id number] * Adult Type and Screen (06/23/2024 3:49 PM DURALUMIN MECHANIC) Only the most recent of3 resultswithin the time period is included. Pathologist [facility] ABO/RH(D) B POS 06/23/2024 3:38 PM DURALUMIN MECHANIC BLOOD BANK Antibody Screen Negative Negative 06/23/2024 3:38 PM DURALUMIN MECHANIC BLOOD BANK SPECIMEN EXPIRATION DATE [id number] 06/23/2024 3:38 PM DURALUMIN MECHANIC U BLOOD BANK Blood BLOOD SPECIMEN / Unknown Venipuncture / Unknown 06/23/2024 3:49 PM DURALUMIN MECHANIC 06/23/2024 3:59 PM DURALUMIN MECHANIC Yamil Espinosa MD LAB - BLOOD BANK TEST ORDER Fi nal Result U BLOOD BANK [address] [place] [phone] * EKG 12-lead, tracing only (06/23/2024 3:46 PM DURALUMIN MECHANIC) Only the most recent of4 resultswithin the time period is included. Systolic Blood Pressure mmHg RADIOLOGY RESULTS Diastolic Blood Pressure mmHg RADIOLOGY RESULTS Ventricular Rate 90 BPM RAD IOLOGY RESULTS Atrial Rate 90 BPM RADIOLOG Y RESULTS CO Interval 136 ms RADIOLOG Y RESULTS QRS Duration 84 ms RADIOLO GY RESULTS QT 384 ms RADIOLOGY RESULTS QTc 469 ms RADIOLOGY RESULTS P [place] 80 degrees RADIOLOGY RESULTS R AXIS 55 degrees RADIOLOGY RESULTS T [place] 52 degrees RADIOLOGY RESULTS Interpretation ECG Sinus rhythm Normal ECG Unconfirmed report - interpretation of this ECG is computer generated - see medical record for final interpretation Confirmed by - EMERGENCY ROOM, PHYSICIAN ([id number]), editorial writer CORRINA COSTELLO ([id number]) on 06/24/2024 7:43:56 AM RADIOLOGY RESULTS 06/23/2024 3:46 PM DURALUMIN MECHANIC 06/24/2024 7:43 AM DURALUMIN MECHANIC Yamil Espinosa MD ECG ORDERABLES Edited Result - Final RADIOLOGY RESULTS * Extra Red Top Tube (06/23/2024 3:42 PM DURALUMIN MECHANIC) Hold Specimen JIC 06/23/2024 5:02 PM DURALUMIN MECHANIC U LABORATORY Blood STRUCTURE OF LEFT UPPER LIMB / Unknown Venipuncture / Unknown 06/23/2024 3:42 PM DURALUMIN MECHANIC 06/23/2024 4:00 PM DURALUMIN MECHANIC Adam Barros DO LAB - BLOOD ORDERABLES Fi nal Result LABORATORY [facility] [place] [facility] [address] [facility], [address] [phone] * Extra Blue Top Tube (06/23/2024 3:42 PM DURALUMIN MECHANIC) Hold Specimen JIC 06/23/2024 5:02 PM D[facility]UMIN MECHANIC LABORATORY Blood STRUCTURE OF LEFT UPPER LIMB / Unknown Venipuncture / Unknown 06/23/2024 3:42 PM DURALUMIN MECHANIC 06/23/2024 4:00 PM DURALUMIN MECHANIC Adam Barros DO LAB - BLOOD ORDERABLES Fi nal Result Performing Organization Address City/[facility]/ZIP Co de Phone Number LABORATORY [facility] [address] [facility], [address] [phone] * INR (06/23/2024 3:42 PM DURALUMIN MECHANIC) Only the most recent of3 resultswithin the time period is included. INR 1.08 0.85 - 1.15 06/23/2024 4:25 PM [facility]IN [facility]CH[facility] LABORATORY Blood STRUCTURE OF LEFT UPPER LIMB / Unknown Venipuncture / Unknown 06/23/2024 3:42 PM DURALUMIN MECHANIC 06/23/2024 4:00 PM DURALUMIN MECHANIC Yamil Espinosa MD LAB - BLOOD ORDERABLES Final R esult LABORATORY [facility] [address] [facility], [address] [phone] * Phosphorus (06/23/2024 3:42 PM DURALUMIN MECHANIC) Only the most recent of11 resultswithin the time period is included. Phosphorus 2.6 2.5 - 4.5 mg/dL 06/23/2024 7:44 PM [facility]IN [facility]CH[employer] LABORATORY Blood STRUCTURE OF LEFT UPPER LIMB / Unknown Venipuncture / Unknown 06/23/2024 3:42 PM DURALUMIN MECHANIC 06/23/2024 4:00 PM DURALUMIN MECHANIC us Dillon Euceda PA-C LAB - BLOOD ORDERABLES Final Res ult [facility] LABORATORY [facility] [address] [facility], [address] [place] [address], [facility] * Potassium (06/16/2024 11:47 PM DURALUMIN MECHANIC) Only the most recent of9 resultswithin the time period is included. Potassium 3.8 3.4 - 5.3 mmol/L 06/17/2024 12:16 AM DURALUMIN MECHANIC UR LABORATORY Blood STRUCTURE OF RIGHT UPPER LIMB / Unknown Venipuncture / Unknown 06/16/2024 11:47 PM DURALUMIN MECHANIC 06/16/2024 11:53 PM DURALUMIN MECHANIC us Remy Johnson MD LAB - BLOOD ORDERABLES Corie l Result UR LABORATORY [facility] Acute Care Lab [address], [address] [place] [address], [facility] * Troponin T, High Sensitivity (06/15/2024 3:43 PM DURALUMIN MECHANIC) Only the most recent of2 resultswithin the time period is included. Troponin T, High Sensitivity 15 <=22 ng/L 06/15/2024 4:15 PM DURALUMIN MECHANIC UR LABORATORY Comment: Either a High Sensitivity [...] Unknown Venipuncture / Unknown 06/15/2024 3:43 PM DURALUMIN MECHANIC 06/15/2024 3:52 PM DURALUMIN MECHANIC Remy Johnson MD LAB - BLOOD ORDERABLES Corie l Result UR LABORATORY [facility] Acute Care Lab [facility] [address], [address] [id number] * Extra Blood Bank Purple Top Tube (06/14/2024 8:24 PM DURALUMIN MECHANIC) Hold Specimen JIC 06/14/2024 9:46 PM DURALUMIN MECHANIC LABORATORY Blood BLOOD SPECIMEN / Unknown Venipuncture / Unknown 06/14/2024 8:24 PM DURALUMIN MECHANIC 06/14/2024 8:37 PM DURALUMIN MECHANIC Clinton Smith MD LAB - BLOOD ORDERABLES Final Res ult UR LABORATORY [facility] Acute Care Lab [address] [place] [address], Room [address] [phone] * (ABNORMAL) Hemoglobin (06/01/2024 1:49 PM DURALUMIN MECHANIC) Only the most recent of13 resultswithin the time period is included. Hemoglobin 8.9(L) 13.3 - 17.7 g/dL 06/01/2024 2:09 PM DURALUMIN MECHANIC U LABORATORY Blood STRUCTURE OF RIGHT UPPER LIMB / Unknown VAD(CVC, PICC) / Unknown 06/01/2024 1:49 PM DURALUMIN MECHANIC 06/01/2024 1:55 PM DURALUMIN MECHANIC Alex Lyons MD LAB - BLOOD ORDERABLES Final Res ult [facility] LABORATORY [facility] [place] Core Lab [address] [facility], [address] [place] [address] * UPPER GI ENDOSCOPY (06/01/2024 11:25 AM DURALUMIN MECHANIC) Upper GI Endoscopy [address] [place] [address] [phone] Endoscopy Department ___ Patient Name: Claudio Sapp Procedure Date: 06/01/2024 11:25 AM Date of : 1995 Admit Type: Inpatient Age: 28 Room: [place] [address] Gender: Male Note Status: Finalized Attending MD: [...] Out: RADIOLOGY RESULTS 06/01/2024 11:2 5 AM DURALUMIN MECHANIC us Chas Perez MD PROCEDURES Final Resul t RADIOLOGY RESULTS * (ABNORMAL) Glucose by meter (05/30/2024 10:40 PM DURALUMIN MECHANIC) GLUCOSE BY METER POCT 106(H) 70 - 99 mg/dL 05/30/2024 10:47 PM DURALUMIN MECHANIC [facility] LABORATORY POC Blood, venous BLOOD SPECIMEN / Unknown 05/30/2024 10:40 PM DURALUMIN MECHANIC 05/30/2024 10:47 PM DURALUMIN MECHANIC us Teja Harrison MD LAB - BEAKER POCT Final Result UU LABORATORY POC [facility] [place] Core Lab [address] [facility] [address], [address] [place] [phone] * Transfuse red blood cells (unit) (05/30/2024 8:24 PM DURALUMIN MECHANIC) Joshua Berry PA-C BLOOD TRANSFUSION ORDERABLE S Final Result * Prepare red blood cells (unit) (05/30/2024 3:40 PM DURALUMIN MECHANIC) Blood Component Type Red Blood Cells UU BLOOD BANK Product Code [id number] UU BLOO D BANK Unit Status Transfused UU BLOO D BANK Unit Number [id number] UU B LOOD BANK CROSSMATCH Compatible UU BLOOD BANK CODING SYSTEM [id number] UU BLO OD BANK ISSUE DATE AND TIME [id number] UU BLOOD BANK UNIT ABO/RH B+ UU BLOOD BANK UNIT TYPE ISBT 7300 UU BL OOD BANK 05/30/2024 3:40 PM DURALUMIN MECHANIC Joshua Berry PA-C BLOOD BANK PRODUCT ORDERABL ES Final Result Performing Organization Address City/[facility] Co de Phone Number UU BLOOD BANK [address] [place] [address] * Triple Lumen PICC Placement (05/30/2024 10:44 AM DURALUMIN MECHANIC) Narrative Sukhjinder Jang RN - 05/30/2024 10:44 AM DURALUMIN MECHANIC Sukhjinder Jang RN 05/30/2024 10:47 AM [facility] Triple Lumen PICC Placement Date/Time: 05/30/2024 10:44 [...] the procedure a time out was called Chelsea Protocol: the Joint Commission [place] Protocol was followed Preparation: Patient was prepped [...] size: 5 Fr Brand: Bard Lot number: [id number] Placement method: venipuncture, MST, ultrasound and tip [...] is in satisfactory location as verified by [email or web address] 3CG Tip Confirmation System. PICC is OK to use. Disposal: sharps and needle count correct at the end of procedure, needles and guidewire disposed in sharps container [facility]- PROCEDURE/MINOR SURGICAL ORDERA BLES Final Result * Osmolality (05/29/2024 5:51 PM DURALUMIN MECHANIC) Osmolality Blood 279 275 - 295 mmol/kg 05/29/2024 6:40 PM DURALUMIN MECHANIC [facility] LABORATORY Blood STRUCTURE OF RIGHT HAND / Unknown Venipuncture / Unknown 05/29/2024 5:51 PM DURALUMIN MECHANIC 05/29/2024 5:56 PM DURALUMIN MECHANIC Narrative [facility] LABORATORY - 05/29/2024 6:40 PM DURALUMIN MECHANIC Greater than 385 mmol/kg relates to stupor in hyperglycemia Greater than 400 mmol/kg can relate to seizures Greater than 420 mmol/kg can be lethal Serum Osmalar Gap: Normal <10 Larger suggest unmeasured substances present in serum (ethanol, methanol, isopropanol, mannitol, ethylene glycol). us Luis Dunne PA-C LAB - BLOOD ORDERABLES F inal Result Performing Organization Address [facility] Co de Phone Number U LABORATORY [facility] Core Lab [address] [facility], [address] [phone] * Sodium random urine (05/29/2024 9:35 AM DURALUMIN MECHANIC) Sodium Urine mmol/L 29 mmol/L 05/29/2024 12:44 PM DURALUMIN MECHANIC [facility] LABORATORY Comment:The reference ranges have not been established in urine sodium. The results should be integrated into the clinical context for interpretation. Urine URINE SPECIMEN OBTAINED BY CLEAN CATCH PROCEDURE / Unknown Non-blood Collection / Unknown 05/29/2024 9:35 AM DURALUMIN MECHANIC 05/29/2024 9:41 AM DURALUMIN MECHANIC Luis Dunne PA-C LAB - URINE ORDERABLES F inal Result U LABORATORY [facility] Core Lab [address] [facility], [address] [phone] * Osmolality urine (05/29/2024 9:35 AM DURALUMIN MECHANIC) Osmolality Urine 294 100 - 1,200 mmol/kg 05/29/2024 1:00 PM DURALUMIN MECHANIC [facility] LABORATORY Urine URINE SPECIMEN OBTAINED BY CLEAN CATCH PROCEDURE / Unknown Non-blood Collection / Unknown 05/29/2024 9:35 AM DURALUMIN MECHANIC 05/29/2024 9:41 AM DURALUMIN MECHANIC Narrative [facility] LABORATORY - 05/29/2024 1:00 PM DURALUMIN MECHANIC Reference Ranges depend on patient's hydration status and renal function. Neonates: 75-300 mmol/kg 2 years and older, random specimens: 100-1200 mmol/kg; Greater than 850 mmol/kg after 12 hour fluid restriction Urine/serum osmolality ratio: 2 years and older: 1.0-3.0; 3.0-4.7 after 12 hour fluid restriction Luis Dunne PA-C LAB - URINE ORDERABLES F inal Result Performing Organization Address [facility] de Phone Number LABORATORY [facility] [place] Core Lab [address] [facility], [address] [phone] * Fibrinogen activity (05/29/2024 9:35 AM DURALUMIN MECHANIC) [facility] Fibrinogen Activity 278 170 - 510 mg/dL 05/29/2024 4:48 PM DURALUMIN MECHANIC UU LABORATORY Comment:Effective 02/17/2024, the reference range for this assay has changed. There may be differences in the flagging of prior results with similar values performed with this method. Blood BLOOD SPECIMEN / Unknown Venipuncture / Unknown 05/29/2024 9:35 AM DURALUMIN MECHANIC 05/29/2024 9:46 AM DURALUMIN MECHANIC Luis Dunne PA-C LAB - BLOOD ORDERABLES F inal Result Performing Organization Address [facility] de Phone Number U LABORATORY [facility] [place] Core Lab [address] [facility], [address] [address] * (ABNORMAL) iStat Gases Electrolytes ICA Glucose Venous, POCT (05/29/2024 7:11 AM DURALUMIN MECHANIC) [facility] CPB Applied No 05/29/2024 7:15 AM DURALUMIN MECHANIC UR LABORATORY POC Comment:000 Hematocrit POCT 45 40 - 53 % 7:15 AM DURALUMIN MECHANIC UR LABORATORY POC Comment:000 Calcium, Ionized Whole Blood POCT 4.2(L) 4.4 - 5.2 mg/dL 05/29/2024 7:15 AM DURALUMIN MECHANIC UR LABORATORY POC Comment:000 Glucose Whole Blood POCT 127(H) 70 - 99 mg/dL 05/29/2024 7:15 AM DURALUMIN MECHANIC UR LABORATORY POC Comment:000 Bicarbonate Venous POCT 41(H) 21 - 28 mmol/L 05/29/2024 7:15 AM DURALUMIN MECHANIC UR LABORATORY POC Comment:000 Hemoglobin POCT 15.3 13.3 - 17.7 g/dL 05/29/2024 7:15 AM DURALUMIN MECHANIC UR LABORATORY POC Comment:000 Potassium POCT 2.2(LL) 3.4 - 5.3 mmol/L 05/29/2024 7:15 AM DURALUMIN MECHANIC UR LABORATORY POC Comment:000 Sodium POCT 123(L) 135 - 145 mmol/L 05/29/2024 7:15 AM DURALUMIN MECHANIC UR LABORATORY POC Comment:000 pCO2 Venous POCT 43 40 - 50 mm Hg 05/29/2024 7:15 AM DURALUMIN MECHANIC UR LABORATORY POC Comment:000 pO2 Venous POCT 40 25 - 47 mm Hg 05/29/2024 7:15 AM DURALUMIN MECHANIC UR LABORATORY POC Comment:000 pH Venous POCT 7.58(H) 7.32 - 7.43 05/29/2024 7:15 AM DURALUMIN MECHANIC UR LABORATORY POC Comment:000 O2 Sat, Venous POCT 82(H) 70 - 75 % 05/29/2024 7:15 AM DURALUMIN MECHANIC UR LABORATORY POC Comment:000 Base Excess/Deficit (+/-) POCT 17.0(H) -3.0 - 3.0 mmol/L 05/29/2024 7:15 AM DURALUMIN MECHANIC UR LABORATORY POC Comment:000 Blood, venous BLOOD SPECIMEN / Unknown 05/29/2024 7:11 AM DURALUMIN MECHANIC 05/29/2024 7:15 AM DURALUMIN MECHANIC us Provider Unknown LAB - BEAKER POCT Final Result UR LABORATORY POC [facility] Acute Care Lab [address], [address] [place] [address], [facility] * Alcohol breath test POCT (05/29/2024 5:48 AM DURALUMIN MECHANIC) Alcohol Breath Test 0.00 0.00 - 0.01 UR LABORATORY POC Breath Pankaj Sidhu MD LAB - ENTER/EDIT POCT Final Result UR LABORATORY POC [facility] Acute Care Lab [address] [place] [address], [facility] from Last [address] [place] [place] [address] [place] [address] Advance Directives For more information, please contact: [phone] Documents on File Type Date Recorded 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
--- OUTSIDE RECORDS SUMMARY | 2024-08-16 19:18 | XMS_ITS | Referral Summary ---
Author Organization [facility] Address [address] [place] [address]. [place] [address] Care Team Providers Care Storage Management Consultant Name Role Phone Deepthi Mc Claudette Primary Care Provider [phone] Encounters Date Type Department Care Team Description 07/12/2024 10:10 PM GYM MANAGER - 07/13/2024 6:40 AM [facility] Emergency [facility] Emergency Department [address] [place] [phone] Jack Cornejo MD Mott, Sarah E, MD Nausea and vomiting, unspecified vomiting type Discharge Disposition: Home or Self Care 07/12/2024 Documentation Only [facility] [address] [place] [phone] Christine Ugarte Advance Care Planning 07/11/2024 Travel 07/11/2024 3:18 PM GYM MANAGER - 07/11/2024 6:55 PM [facility] Emergency [facility] Emergency Department [address] [place] [phone] Clinton Franklin DO Cyclic vomiting syndrome Discharge Disposition: Home or Self Care 07/05/2024 Documentation Only [facility] [address] [place] [phone] Christine Ugarte Advance Care Planning 06/27/2024 Travel 06/27/2024 8:29 AM GYM MANAGER - 06/27/2024 11:56 AM GYM MANAGER Emergency [facility] Emergency Department [address] [place] [phone] Ronda Ugarte MD Anxiety reaction Discharge Disposition: Home or Self Care 06/23/2024 3:12 PM GYM MANAGER - 06/26/2024 10:15 AM GYM MANAGER Emergency [facility] [address] [place] [phone] Yamil Espinosa MD Kelly, Ryan, MD Saadaeijahromi, Hannaneh, MD Tachycardia, unspecified (Primary Dx); Hyponatremia; Nausea and vomiting, unspecified vomiting type Discharge Disposition: IRTS - Intensive Residential Treatment Program 06/23/2024 Travel 06/14/2024 8:09 PM GYM MANAGER - 06/17/2024 12:53 PM GYM MANAGER Hospital Encounter [facility] Med Surg [address] [place] [phone] Clinton Smith MD Mangaudis, Rachael, MD Maddury, Sai Priya, MD Tremor (Primary Dx); Alcohol withdrawal, with unspecified complication (H); Hematemesis with nausea; Tachycardia, unspecified; Upper GI bleed; Gastroesophageal reflux disease with esophagitis without hemorrhage Discharge Disposition: Home or Self Care 06/14/2024 Travel 06/01/2024 11:29 AM GYM MANAGER Anesthesia Event [facility] Endoscopy [address] [place] [phone] Guzman Randall MD Kadiyala, Mamatha, MD 06/01/2024 11:00 AM GYM MANAGER - 06/01/2024 11:35 AM GYM MANAGER Surgery [facility] Endoscopy [address] [place] [phone] Chas Perez MD Esophagoscopy, gastroscopy, duodenoscopy (EGD), combined 05/29/2024 5:40 AM GYM MANAGER - 06/01/2024 5:10 PM GYM MANAGER Hospital Encounter [facility] [address] [place] [phone] Pankaj Sidhu MD Jones, MD Christy Thomas, [...] history of withdrawal seizures or withdrawal complications. [facility] admission on 03/26/20 for alcohol withdrawal and discharged on 03/28/20. Patient is interested in quitting. Has previously tried clonidine and naltrexone. Patient with history of alcohol abuse. No history of withdrawal seizures or withdrawal complications. [facility] admission on 03/26/20 for alcohol withdrawal and discharged on 03/28/20. Patient is interested in quitting. Has previously tried clonidine and naltrexone. Patient with history of alcohol abuse. No history of withdrawal seizures or withdrawal complications. [facility] admission on 03/26/20 for alcohol withdrawal and discharged on 03/28/20. Patient is interested in quitting. Has previously tried clonidine and naltrexone. Cyclical vomiting 04/04/2016 Social anxiety disorder 02/26/2016 PTSD (post-traumatic stress disorder) 05/16/2014 Overview (07/15/2021): Under the care of Dr. Rafat Falcon for mental health care. [facility] . Initial intake 12/10/12 Previous Medication [...] ER visit for cyclic vomiting; hospitalization at [facility] 05/03 (72 hr hold); 12/01 at [facility] History of Suicide Attempts: no Under the care of Dr. Rafat Falcon for mental health care. [facility] . Initial intake 12/10/12 Previous Medication [...] ER visit for cyclic vomiting; hospitalization at [facility] 05/03 (72 hr hold); 12/01 at [facility] History of Suicide Attempts: no Under the care of Dr. Rafat Falcon for mental health care. [facility] . Initial intake 12/10/12 Previous Medication [...] ER visit for cyclic vomiting; hospitalization at [facility] 05/03 (72 hr hold); 12/01 at [facility] History of Suicide Attempts: no Under the care of Dr. Rafat Falcon for mental health care. [facility] . Initial intake 12/10/12 Previous Medication [...] ER visit for cyclic vomiting; hospitalization at [facility] 05/03 (72 hr hold); 12/01 at [facility] History of Suicide Attempts: no Under the care of Dr. Rafat Falcon for mental health care. [facility] . Initial intake 12/10/12 Previous Medication [...] ER visit for cyclic vomiting; hospitalization at [facility] 05/03 (72 hr hold); 12/01 at [facility] History of Suicide Attempts: no Under the care of Dr. Rafat Falcon for mental health care. [facility] . Initial intake 12/10/12 Previous Medication [...] ER visit for cyclic vomiting; hospitalization at [facility] 05/03 (72 hr hold); 12/01 at [facility] History of Suicide Attempts: no Under the care of Dr. Rafat Falcon for mental health care. [facility] . Initial intake 12/10/12 Previous Medication [...] ER visit for cyclic vomiting; hospitalization at [facility] 05/03 (72 hr hold); 12/01 at [facility] History of Suicide Attempts: no [...] Comments Blood Pressure 122/60 07/13/2024 6:16 AM GYM MANAGER Pulse 117 07/12/2024 10:01 PM GYM MANAGER Temperature 36.7 C (98.1 F) 07/12/2024 10:01 PM GYM MANAGER Respiratory Rate 30 07/12/2024 10:01 PM GYM MANAGER Oxygen Saturation 100% 07/12/2024 10:01 PM GYM MANAGER Inhaled Oxygen Concentration - - Weight 98.9 kg (218 lb) 07/12/2024 10:01 PM GYM MANAGER Height 182.9 cm (6') 07/11/2024 3:12 PM GYM MANAGER Body Mass Index 29.57 07/11/2024 3:12 PM GYM MANAGER Plan of Treatment Not on file Procedures Procedure Name Priority Date/Time Associated Diagnosis Comments ROUTINE UA WITH MICROSCOPIC REFLEX TO CULTURE STAT 07/13/2024 4:26 AM GYM MANAGER CBC WITH PLATELETS & DIFFERENTIAL STAT 07/13/2024 1:19 AM GYM MANAGER CBC WITH PLATELETS AND DIFFERENTIAL STAT 07/13/2024 1:19 AM GYM MANAGER LIPASE STAT 07/13/2024 1:19 AM GYM MANAGER HEPATIC FUNCTION PANEL STAT 1:19 AM GYM MANAGER BASIC METABOLIC PANEL STAT 07/13/2024 1:19 AM GYM MANAGER CBC WITH PLATELETS & DIFFERENTIAL STAT 07/11/2024 3:25 PM GYM MANAGER RBC AND PLATELET MORPHOLOGY STAT 07/11/2024 3:25 PM GYM MANAGER CBC WITH PLATELETS AND DIFFERENTIAL STAT 07/11/2024 3:25 PM GYM MANAGER LIPASE STAT 07/11/2024 3:25 PM GYM MANAGER HEPATIC FUNCTION PANEL STAT 3:25 PM GYM MANAGER BASIC METABOLIC PANEL STAT 07/11/2024 3:25 PM GYM MANAGER EXTRA PURPLE TOP TUBE STAT 07/11/2024 3:25 PM GYM MANAGER EXTRA GREEN TOP (LITHIUM HEPARIN) TUBE STAT 07/11/2024 3:25 PM GYM MANAGER EXTRA TUBE STAT 07/11/2024 3:25 PM GYM MANAGER CBC WITH PLATELETS & DIFFERENTIAL STAT 06/27/2024 8:36 AM GYM MANAGER MAGNESIUM STAT 06/27/2024 8:36 AM GYM MANAGER CBC WITH PLATELETS AND DIFFERENTIAL STAT 06/27/2024 8:36 AM GYM MANAGER ETHYL ALCOHOL LEVEL STAT 06/27/2024 8 :36 AM GYM MANAGER LIPASE STAT 06/27/2024 8:36 AM GYM MANAGER HEPATIC FUNCTION PANEL STAT 8:36 AM GYM MANAGER BASIC METABOLIC PANEL STAT 06/27/2024 8:36 AM GYM MANAGER EXTRA PURPLE TOP TUBE STAT 06/27/2024 8:36 AM GYM MANAGER EXTRA GREEN TOP (LITHIUM HEPARIN) TUBE STAT 06/27/2024 8:36 AM GYM MANAGER EXTRA TUBE STAT 06/27/2024 8:36 AM GYM MANAGER EXTRA PURPLE TOP TUBE Routine 06/25/2024 8:40 AM GYM MANAGER EXTRA TUBE Routine 06/25/2024 8:40 AM GYM MANAGER BASIC METABOLIC PANEL Routine 06/25/2024 8:40 AM GYM MANAGER DRUG CONFIRMATION PANEL URINE WITH CREAT STAT 06/24/2024 5:29 PM GYM MANAGER URINE CREATININE FOR DRUG SCREEN PANEL STAT 06/24/2024 5:29 PM GYM MANAGER URINE DRUG CONFIRMATION PANEL STAT 06/24/2024 5:29 PM GYM MANAGER URINE DRUG SCREEN STAT 06/24/2024 5:2 8 PM GYM MANAGER URINE CREATININE FOR DRUG SCREEN PANEL STAT 06/24/2024 5:28 PM GYM MANAGER THC CONFIRMATION QUANTITATIVE URINE STAT 06/24/2024 5:28 PM GYM MANAGER BENZODIAZEPINES, URINE, QUANTITATIVE STAT 06/24/2024 5:28 PM GYM MANAGER URINE DRUG SCREEN PANEL STAT 06/24/20 5:28 PM GYM MANAGER PHOSPHATIDYLETHANOL (PETH), WHOLE BLOOD Routine 06/24/2024 8:14 AM GYM MANAGER CBC WITH PLATELETS Routine 06/24/2024 8: 14 AM GYM MANAGER COMPREHENSIVE METABOLIC PANEL Routine 06/24/2024 8:14 AM GYM MANAGER EXTRA PURPLE TOP TUBE STAT 06/23/2024 6:19 PM GYM MANAGER EXTRA TUBE STAT 06/23/2024 6:19 PM GYM MANAGER LACTIC ACID WHOLE BLOOD STAT 06/23/20 6:19 PM GYM MANAGER ABO/RH TYPE AND SCREEN STAT 3:49 PM GYM MANAGER TYPE AND SCREEN, ADULT STAT 3:49 PM GYM MANAGER LACTIC ACID WHOLE BLOOD WITH 1X REPEAT IN 2 HR WHEN >2 STAT 06/23/2024 3:49 PM GYM MANAGER EKG 12-LEAD, TRACING ONLY STAT 2023 3:46 PM GYM MANAGER CBC WITH PLATELETS & DIFFERENTIAL STAT 06/23/2024 3:42 PM GYM MANAGER PHOSPHORUS Add-On 06/23/2024 3:42 PM GYM MANAGER MAGNESIUM Add-On 06/23/2024 3:42 PM GYM MANAGER PHOSPHORUS STAT 06/23/2024 3:42 PM GYM MANAGER CBC WITH PLATELETS AND DIFFERENTIAL STAT 06/23/2024 3:42 PM GYM MANAGER MAGNESIUM STAT 06/23/2024 3:42 PM GYM MANAGER INR STAT 06/23/2024 3:42 PM GYM MANAGER COMPREHENSIVE METABOLIC PANEL STAT 06/23/2024 3:42 PM GYM MANAGER ETHYL ALCOHOL LEVEL STAT 06/23/2024 3 :42 PM GYM MANAGER EXTRA PURPLE TOP TUBE STAT 06/23/2024 3:42 PM GYM MANAGER EXTRA GREEN TOP (LITHIUM HEPARIN) TUBE STAT 06/23/2024 3:42 PM GYM MANAGER EXTRA RED TOP TUBE STAT 06/23/2024 3: 42 PM GYM MANAGER EXTRA BLUE TOP TUBE STAT 06/23/2024 3 :42 PM GYM MANAGER EXTRA TUBE STAT 06/23/2024 3:42 PM GYM MANAGER CBC WITH PLATELETS & DIFFERENTIAL Routine 06/17/2024 6:35 AM GYM MANAGER CBC WITH PLATELETS AND DIFFERENTIAL Routine 06/17/2024 6:35 AM GYM MANAGER PHOSPHORUS Routine 06/17/2024 6:35 AM GYM MANAGER MAGNESIUM Routine 06/17/2024 6:35 AM GYM MANAGER COMPREHENSIVE METABOLIC PANEL Routine 06/17/2024 6:35 AM GYM MANAGER POTASSIUM Timed 06/16/2024 11:47 PM GYM MANAGER PHOSPHORUS Routine 06/16/2024 1:14 PM GYM MANAGER POTASSIUM Timed 06/16/2024 1:14 PM GYM MANAGER CBC WITH PLATELETS & DIFFERENTIAL Routine 06/16/2024 7:52 AM GYM MANAGER CBC WITH PLATELETS AND DIFFERENTIAL Routine 06/16/2024 7:52 AM GYM MANAGER COMPREHENSIVE METABOLIC PANEL Routine 06/16/2024 7:52 AM GYM MANAGER PHOSPHORUS Routine 06/16/2024 2:24 AM GYM MANAGER MAGNESIUM Routine 06/16/2024 2:24 AM GYM MANAGER POTASSIUM Timed 06/16/2024 2:24 AM GYM MANAGER POTASSIUM Timed 06/16/2024 1:35 AM GYM MANAGER POTASSIUM Routine 06/15/2024 5:38 PM GYM MANAGER TROPONIN T, HIGH SENSITIVITY Timed 06/15/2024 3:43 PM GYM MANAGER ROUTINE UA WITH MICROSCOPIC REFLEX TO CULTURE STAT 06/15/2024 12:36 PM GYM MANAGER EXTRA PURPLE TOP TUBE Routine 06/15/2024 11:07 AM GYM MANAGER EXTRA TUBE Routine 06/15/2024 11:07 AM GYM MANAGER TROPONIN T, HIGH SENSITIVITY STAT 06/15/2024 11:07 AM GYM MANAGER POTASSIUM Timed 06/15/2024 11:07 AM GYM MANAGER EKG 12-LEAD, TRACING ONLY STAT 2023 11:00 AM GYM MANAGER CBC WITH PLATELETS & DIFFERENTIAL STAT 06/15/2024 10:08 AM GYM MANAGER EXTRA GREEN TOP (LITHIUM HEPARIN) TUBE Routine 06/15/2024 10:08 AM GYM MANAGER EXTRA TUBE Routine 06/15/2024 10:08 AM GYM MANAGER CBC WITH PLATELETS AND DIFFERENTIAL STAT 06/15/2024 10:08 AM GYM MANAGER POTASSIUM Routine 06/15/2024 7:17 AM GYM MANAGER INR Timed 06/15/2024 3:56 AM GYM MANAGER PHOSPHORUS Timed 06/15/2024 3:56 AM GYM MANAGER MAGNESIUM Timed 06/15/2024 3:56 AM GYM MANAGER COMPREHENSIVE METABOLIC PANEL Timed 06/15/2024 3:56 AM GYM MANAGER PHOSPHORUS Add-On 06/14/2024 9:13 PM GYM MANAGER ETHYL ALCOHOL LEVEL STAT 06/14/2024 9 :13 PM GYM MANAGER EKG 12-LEAD, TRACING ONLY STAT 2023 8:56 PM GYM MANAGER ABO/RH TYPE AND SCREEN STAT 8:24 PM GYM MANAGER CBC WITH PLATELETS & DIFFERENTIAL STAT 06/14/2024 8:24 PM GYM MANAGER TYPE AND SCREEN, ADULT STAT 8:24 PM GYM MANAGER MAGNESIUM STAT 06/14/2024 8:24 PM GYM MANAGER LIPASE STAT 06/14/2024 8:24 PM GYM MANAGER EXTRA BLOOD BANK PURPLE TOP TUBE STAT 06/14/2024 8:24 PM GYM MANAGER CBC WITH PLATELETS AND DIFFERENTIAL STAT 06/14/2024 8:24 PM GYM MANAGER ETHYL ALCOHOL LEVEL STAT 06/14/2024 8 :24 PM GYM MANAGER EXTRA TUBE STAT 06/14/2024 8:24 PM GYM MANAGER COMPREHENSIVE METABOLIC PANEL STAT 06/14/2024 8:24 PM GYM MANAGER HEMOGLOBIN Timed 06/01/2024 1:49 PM GYM MANAGER UGI ENDOSCOPY DIAG W OR W/O BRUSH/WASH 06/01/2024 11:30 AM GYM MANAGER Hematemesis UPPER GI ENDOSCOPY Routine 06/01/2024 11:25 AM GYM MANAGER PHOSPHORUS Add-On 06/01/2024 5:41 AM GYM MANAGER HEMOGLOBIN Timed 06/01/2024 5:41 AM GYM MANAGER MAGNESIUM Routine 06/01/2024 5:41 AM GYM MANAGER CBC WITH PLATELETS Routine 06/01/2024 5: 41 AM GYM MANAGER BASIC METABOLIC PANEL Routine 06/01/2024 5:41 AM GYM MANAGER HEMOGLOBIN Timed 05/31/2024 11:51 PM GYM MANAGER HEMOGLOBIN Timed 05/31/2024 5:54 PM GYM MANAGER PHOSPHORUS Timed 05/31/2024 5:50 PM GYM MANAGER HEMOGLOBIN Timed 05/31/2024 2:39 PM GYM MANAGER HEPATIC FUNCTION PANEL Add-On 5:35 AM GYM MANAGER CBC WITH PLATELETS Routine 05/31/2024 5: 35 AM GYM MANAGER BASIC METABOLIC PANEL Routine 05/31/2024 5:35 AM GYM MANAGER MAGNESIUM Routine 05/31/2024 5:35 AM GYM MANAGER PHOSPHORUS Routine 05/31/2024 5:35 AM GYM MANAGER HEMOGLOBIN Timed 05/30/2024 10:41 PM GYM MANAGER MAGNESIUM Routine 05/30/2024 10:41 PM GYM MANAGER POTASSIUM Timed 05/30/2024 10:41 PM GYM MANAGER GLUCOSE BY METER Routine 05/30/2024 10:40 PM GYM MANAGER HEMOGLOBIN Timed 05/30/2024 8:19 PM GYM MANAGER TRANSFUSE RED BLOOD CELLS (UNIT) STAT 05/30/2024 4:17 PM GYM MANAGER PREPARE RED BLOOD CELLS (UNIT) STAT 05/30/2024 3:40 PM GYM MANAGER PREPARE RED BLOOD CELLS (UNIT) Routine 05/30/2024 2:27 PM GYM MANAGER PREPARE RED BLOOD CELLS (UNIT) STAT 05/30/2024 1:57 PM GYM MANAGER MAGNESIUM Routine 05/30/2024 12:02 PM GYM MANAGER POTASSIUM Timed 05/30/2024 12:02 PM GYM MANAGER HEMOGLOBIN Timed 05/30/2024 12:02 PM GYM MANAGER BASIC METABOLIC PANEL Timed 05/30/2024 12:02 PM GYM MANAGER PICC TRIPLE LUMEN PLACEMENT Routine 05/30/2024 10:44 AM GYM MANAGER CBC WITH PLATELETS & DIFFERENTIAL STAT 05/30/2024 5:50 AM GYM MANAGER CBC WITH PLATELETS AND DIFFERENTIAL STAT 05/30/2024 5:50 AM GYM MANAGER HEMOGLOBIN Timed 05/30/2024 5:50 AM GYM MANAGER BASIC METABOLIC PANEL Timed 05/30/2024 5:50 AM GYM MANAGER HEMOGLOBIN Timed 05/29/2024 11:55 PM GYM MANAGER BASIC METABOLIC PANEL Timed 05/29/2024 11:55 PM GYM MANAGER OSMOLALITY Timed 05/29/2024 5:51 PM GYM MANAGER HEMOGLOBIN Timed 05/29/2024 5:51 PM GYM MANAGER BASIC METABOLIC PANEL Timed 05/29/2024 5:51 PM GYM MANAGER LACTIC ACID WHOLE BLOOD STAT 05/29/20 24 4:41 PM GYM MANAGER HEMOGLOBIN STAT 05/29/2024 3:00 PM GYM MANAGER HEMOGLOBIN STAT 05/29/2024 11:55 AM GYM MANAGER BASIC METABOLIC PANEL STAT 05/29/2024 11:55 AM GYM MANAGER MAGNESIUM STAT 05/29/2024 11:55 AM GYM MANAGER URINE DRUG SCREEN STAT 05/29/2024 9:3 5 AM GYM MANAGER FIBRINOGEN ACTIVITY STAT Add-on 05/29/2024 9 :35 AM GYM MANAGER OSMOLALITY, RANDOM URINE Add-On 024 9:35 AM GYM MANAGER SODIUM RANDOM URINE Add-On 05/29/2024 9 :35 AM GYM MANAGER URINE DRUG SCREEN PANEL STAT 05/29/20 9:35 AM GYM MANAGER INR STAT 05/29/2024 9:35 AM GYM MANAGER EKG 12-LEAD, TRACING ONLY STAT 2023 7:13 AM GYM MANAGER ISTAT GASES ELECTROLYTES ICA GLUCOSE VENOUS POCT STAT 05/29/2024 7:11 AM GYM MANAGER ABO/RH TYPE AND SCREEN STAT 7:09 AM GYM MANAGER TYPE AND SCREEN, ADULT STAT 7:09 AM GYM MANAGER CBC WITH PLATELETS & DIFFERENTIAL STAT 05/29/2024 6:59 AM GYM MANAGER PHOSPHORUS STAT 05/29/2024 6:59 AM GYM MANAGER RBC AND PLATELET MORPHOLOGY STAT 05/29/2024 6:59 AM GYM MANAGER CBC WITH PLATELETS AND DIFFERENTIAL STAT 05/29/2024 6:59 AM GYM MANAGER MAGNESIUM STAT 05/29/2024 6:59 AM GYM MANAGER ETHYL ALCOHOL LEVEL STAT 05/29/2024 6 :59 AM GYM MANAGER LIPASE STAT 05/29/2024 6:59 AM GYM MANAGER COMPREHENSIVE METABOLIC PANEL STAT 05/29/2024 6:59 AM GYM MANAGER ALCOHOL BREATH TEST POCT STAT 024 5:48 AM GYM MANAGER from Last 3 Months Results * (ABNORMAL) UA with Microscopic reflex to Culture (07/13/2024 4:26 AM GYM MANAGER) Only the most recent of2 resultswithin the time period is included. Color Urine Light Yellow Colorless, Straw, Light Yellow, Yellow 07/13/2024 4:49 AM GYM MANAGER [facility] Appearance Urine Clear Clear 07/13/20 4:49 AM GYM MANAGER [facility] Glucose Urine Negative Negative mg/dL 07/13/2024 4:49 AM GYM MANAGER [facility] Bilirubin Urine Negative Negative 4:49 AM GYM MANAGER [facility] Ketones Urine 40(A) Negative mg/dL 07/13/2024 4:49 AM GYM MANAGER [facility] Specific [place] Urine 1.017 1.001 - 1.030 07/13/2024 4:49 AM GYM MANAGER [facility] Blood Urine Negative Negative 07/13/2024 4:49 AM GYM MANAGER [facility] pH Urine 6.0 5.0 - 7.0 07/13/2024 4:49 AM GYM MANAGER [facility] Protein Albumin Urine Negative Negative mg/dL 07/13/2024 4:49 AM GYM MANAGER [facility] Urobilinogen Urine <2.0 <2.0 mg/dL 07/13/2024 4:49 AM GYM MANAGER [facility] Nitrite Urine Negative Negative 07/13/2024 4:49 AM GYM MANAGER [facility] Leukocyte Esterase Urine Negative Negative 07/13/2024 4:49 AM GYM MANAGER [facility] RBC Urine 1 <=2 /HPF 07/13/2024 4:49 AM GYM MANAGER [facility] WBC Urine 1 <=5 /HPF 07/13/2024 4:49 AM GYM MANAGER [facility] Urine URINE SPECIMEN OBTAINED BY CLEAN CATCH PROCEDURE / Unknown Non-blood Collection / Unknown 07/13/2024 4:26 AM GYM MANAGER 07/13/2024 4:40 AM GYM MANAGER Narrative [facility] - 07/13/2024 4:49 AM GYM MANAGER Urine Culture not indicated us Jack Cornejo MD LAB - URINE ORDERABLES Final Res ult [facility] [address] [place] [id number], [facility] * (ABNORMAL) CBC with platelets and differential (07/13/2024 1:19 AM GYM MANAGER) Only the most recent of10 resultswithin the time period is included. WBC Count 13.1(H) 4.0 - 11.0 10e3/uL 07/13/2024 1:27 AM GYM MANAGER [facility] RBC Count 4.08(L) 4.40 - 5.90 10e6/uL 07/13/2024 1:27 AM GYM MANAGER [facility] Hemoglobin 10.2(L) 13.3 - 17.7 g/dL 07/13/2024 1:27 AM GYM MANAGER [facility] Hematocrit 30.8(L) 40.0 - 53.0 % 07/13/2024 1:27 AM GYM MANAGER [facility] MCV 76(L) 78 - 100 fL 07/13/2024 1:27 AM GYM MANAGER [facility] MCH 25.0(L) 26.5 - 33.0 pg 07/13/2024 1:27 AM GYM MANAGER [facility] MCHC 33.1 31.5 - 36.5 g/dL 07/13/2024 1:27 AM GYM MANAGER [facility] RDW 17.6(H) 10.0 - 15.0 % 07/13/2024 1:27 AM GYM MANAGER [facility] Platelet Count 462(H) 150 - 450 10e3/uL 07/13/2024 1:27 AM GYM MANAGER [facility] % Neutrophils 73 % 07/13/2024 1:27 AM GYM MANAGER [facility] % Lymphocytes 16 % 07/13/2024 1:27 AM GYM MANAGER [facility] % Monocytes 11 % 07/13/2024 1:27 AM GYM MANAGER [facility] % Eosinophils 0 % 07/13/2024 1:27 AM GYM MANAGER [facility] % Basophils 0 % 07/13/2024 1:27 AM GYM MANAGER [facility] % Immature Granulocytes 0 % 07/13/2024 1:27 AM GYM MANAGER [facility] NRBCs per 100 WBC 0 <1 /100 024 1:27 AM GYM MANAGER [facility] Absolute Neutrophils 9.5(H) 1.6 - 8.3 10e3/uL 07/13/2024 1:27 AM GYM MANAGER [facility] Absolute Lymphocytes 2.1 0.8 - 5.3 10e3/uL 07/13/2024 1:27 AM GYM MANAGER [facility] Absolute Monocytes 1.4(H) 0.0 - 1.3 10e3/uL 07/13/2024 1:27 AM [facility] Absolute Eosinophils 0.1 0.0 - 0.7 10e3/uL 07/13/2024 1:27 AM [facility] Absolute Basophils 0.0 0.0 - 0.2 10e3/uL 07/13/2024 1:27 AM [facility] Absolute Immature Granulocytes 0.1 <=0.4 10e3/uL 07/13/2024 1:27 AM GYM MANAGER [facility] Absolute NRBCs 0.0 10e3/uL 07/13/2024 1:27 AM [facility] Blood BLOOD SPECIMEN / Unknown Venipuncture / Unknown 07/13/2024 1:19 AM GYM MANAGER 07/13/2024 1:23 AM GYM MANAGER us Jack Cornejo MD LAB - BLOOD ORDERABLES Final Res ult Performing Organization Address City/[facility]/ZIP Co de Phone Number [facility] [address] [place] [address], [facility] * Lipase (07/13/2024 1:19 AM GYM MANAGER) Only the most recent of5 resultswithin the time period is included. Pathologist [facility] Lipase 27 13 - 60 U/L 07/13/2024 3:10 AM [facility] Blood BLOOD SPECIMEN / Unknown Venipuncture / Unknown 07/13/2024 1:19 AM GYM MANAGER 07/13/2024 1:23 AM GYM MANAGER us Jack Cornejo MD LAB - BLOOD ORDERABLES Final Res ult [facility] [address] [place] [address], [facility] * Hepatic function panel (07/13/2024 1:19 AM GYM MANAGER) Only the most recent of4 resultswithin the time period is included. Protein Total 6.8 6.4 - 8.3 g/dL 07/13/2024 3:16 AM [facility] Albumin 4.4 3.5 - 5.2 g/dL 07/13/2024 3:16 AM [facility] Bilirubin Total 0.9 <=1.2 mg/dL 07/13/2024 3:16 AM [facility] Alkaline Phosphatase 78 40 - 150 U/L 07/13/2024 3:16 AM [facility] AST 07/13/2024 3:16 AM [facility] Comment:Unsatisfactory speci men - lipemic ALT 07/13/2024 3:16 AM [facility] Comment:Unsatisfactory speci men - lipemic Bilirubin Direct 07/13/20 3:16 AM [facility] Comment:Unsatisfactory speci men - lipemic Blood BLOOD SPECIMEN / Unknown Venipuncture / Unknown 07/13/2024 1:19 AM [employer] 07/13/2024 1:23 AM [facility] Jack Cornejo MD LAB - BLOOD ORDERABLES Final Res ult [facility] [address] [facility] [address] * (ABNORMAL) Basic metabolic panel (07/13/2024 1:19 AM [facility]) Only the most recent of11 resultswithin the time period is included. Sodium 127(L) 135 - 145 mmol/L 07/13/2024 3:15 AM [facility] Potassium 4.4 3.4 - 5.3 mmol/L 07/13/2024 3:15 AM [facility] Chloride 91(L) 98 - 107 mmol/L 07/13/2024 3:15 AM [facility] Carbon Dioxide (CO2) 23 22 - 29 mmol/L 07/13/2024 3:15 AM [facility] Anion Gap 13 7 - 15 mmol/L 07/13/2024 3:15 AM [facility] Urea Nitrogen 22.0(H) 6.0 - 20.0 mg/dL 07/13/2024 3:15 AM [facility] Creatinine 0.92 0.67 - 1.17 mg/dL 07/13/2024 3:15 AM [facility] GFR Estimate >90 >60 mL/min/1.7 3m2 07/13/2024 3:15 AM [facility] Comment:eGFR calculated usin g 2021 CKD-EPI equation. Calcium 9.6 8.8 - 10.4 mg/dL 07/13/2024 3:15 AM G[employer] [facility] Comment:Reference intervals for this test were updated on 02/03/2024 to reflect our healthy population more accurately. There may be differences in the flagging of prior results with similar values performed with this method. Those prior results can be interpreted in the context of the updated reference intervals. Glucose 91 70 - 99 mg/dL 07/13/2024 3:15 AM GYM MANAGER [facility] Blood BLOOD SPECIMEN / Unknown Venipuncture / Unknown 07/13/2024 1:19 AM GYM MANAGER 07/13/2024 1:23 AM GYM MANAGER Jack Cornejo MD LAB - BLOOD ORDERABLES Final Res ult Performing Organization Address City/[facility]/ZIP Co de Phone Number [facility] [address] [place] [address], [facility] * Extra Purple Top Tube (07/11/2024 3:25 PM GYM MANAGER) Only the most recent of6 resultswithin the time period is included. Hold Specimen [facility] 07/11/2024 4:32 PM GYM MANAGER [facility] Blood VENOUS LINE / Unknown Venipuncture / Unknown 07/11/2024 3:25 PM GYM MANAGER 07/11/2024 3:30 PM GYM MANAGER Afshin Chisholm MD LAB - BLOOD ORDERABLES Final Result [facility] [address] [place] [address], [facility] * Extra Green Top ([place] Heparin) Tube (07/11/2024 3:25 PM GYM MANAGER) Only the most recent of4 resultswithin the time period is included. Hold Specimen [facility] 07/11/2024 4:32 PM GYM MANAGER [facility] Blood VENOUS LINE / Unknown Venipuncture / Unknown 07/11/2024 3:25 PM GYM MANAGER 07/11/2024 3:30 PM GYM MANAGER Afshin Chisholm MD LAB - BLOOD ORDERABLES Final Result Performing Organization Address [facility] de Phone Number [facility] [address] * RBC and Platelet Morphology (07/11/2024 3:25 PM GYM MANAGER) Only the most recent of2 resultswithin the time period is included. RBC Morphology Confirmed RBC Indices 07/11/2024 4:32 PM GYM MANAGER [facility] Platelet Assessment Automated Count Confirmed. Platelet morphology is normal. Automated Count Confirmed. Platelet morphology is normal. ALBERTO 07/11/2024 4:32 PM GYM MANAGER [facility] Blood VENOUS LINE / Unknown Venipuncture / Unknown 07/11/2024 3:25 PM GYM MANAGER 07/11/2024 3:30 PM GYM MANAGER Clinton Franklin DO LAB - BLOOD ORDERABLES Final R esult Performing Organization Address [facility] de Phone Number [facility] [address] * Magnesium (06/27/2024 8:36 AM GYM MANAGER) Only the most recent of13 resultswithin the time period is included. [facility] Magnesium 1.9 1.7 - 2.3 mg/dL 06/27/2024 9:09 AM GYM MANAGER [facility] Blood BLOOD SPECIMEN / Unknown Venipuncture / Unknown 06/27/2024 8:36 AM GYM MANAGER 06/27/2024 8:39 AM GYM MANAGER Ronda Ugarte MD LAB - BLOOD ORDERABLES Final Re sult Performing Organization Address [facility] Co de Phone Number [facility] [address] * Ethyl Alcohol Level (06/27/2024 8:36 AM GYM MANAGER) Only the most recent of5 resultswithin the time period is included. Pathologist [facility] Alcohol ethyl <0.01 <=0.01 g/dL 06/27/2024 9:09 AM GYM MANAGER N LABORATORY Blood BLOOD SPECIMEN / Unknown Venipuncture / Unknown 06/27/2024 8:36 AM GYM MANAGER 06/27/2024 8:39 AM GYM MANAGER us Ronda Ugarte MD LAB - BLOOD ORDERABLES Final Re sult [facility] [address] [place], [place] [address] * Urine Creatinine for Drug Screen Panel (06/24/2024 5:29 PM GYM MANAGER) Only the most recent of2 resultswithin the time period is included. Creatinine Urine for Drug Screen 57 mg/dL 06/24/2024 6:26 PM GYM MANAGER [facility] LAB[facility]ATORY Comment:The reference range has not been established for creatinine in random urines. The results should be integrated into the clinical context for interpretation. Urine URINE SPECIMEN OBTAINED BY CLEAN CATCH PROCEDURE / Unknown Non-blood Collection / Unknown 06/24/2024 5:29 PM GYM MANAGER 06/24/2024 5:57 PM GYM MANAGER us Osmar Kitchen MD LAB - URINE ORDERABLES Final Res ult UR LABORATORY [facility] [address] [facility], [address] [place] [address] * (ABNORMAL) Urine Drug Confirmation Panel (06/24/2024 5:29 PM GYM MANAGER) Nordiazepam Present(A ) Absent 06/30/2024 1:57 PM GYM MANAGER [facility] Comment:Nordiazepam is an ex pected metabolite of diazepam. Oxazepam Present(A ) Absent 06/30/2024 1:57 PM GYM MANAGER [facility] Comment:Oxazepam and temazep am are benzodiazepine drugs but may also be present as common metabolites of other benzodiazepine drugs, including diazepam, temazepam. Oxazepam and temazepam are also available as scheduled prescription medications. Temazepam Present(A ) Absent 06/30/2024 1:57 PM GYM MANAGER [facility] Comment:Oxazepam and temazep am are benzodiazepine drugs, but may also be present as common metabolites of other benzodiazepine drugs, including diazepam. Gabapentin (Neurontin) Present(A ) Absent 06/30/2024 1:57 PM GYM MANAGER [facility] Comment:Sources of gabapenti n are prescription medications. Urine URINE SPECIMEN OBTAINED BY CLEAN CATCH PROCEDURE / Unknown Non-blood Collection / Unknown 06/24/2024 5:29 PM GYM MANAGER 06/24/2024 5:57 PM GYM MANAGER Narrative [facility] - 06/30/2024 1:57 PM GYM MANAGER This test was developed and its performance characteristics determined by the [facility], Special Chemistry Laboratory. It has not [...] of 50 ng/mL: 7-AMINOCLONAZEPAM, 7-AMINOFLUNITRAZEPAM, ALPRAZOLAM, AMPHETAMINE, U-WT-BAHBLKZDEM, Z-QJ-KDBWMJVCV, D-WX-NOLJXWYJY, BENZOYLECGONINE (Cocaine Metabolite), CLONAZEPAM, COCAETHYLENE (Cocaine Metabolite), CODEINE, DIAZEPAM, DIHYDROCODEINE, EDDP (Methadone Metabolite), HYDROCODONE, HYDROMORPHONE, LORAZEPAM, MDA (3,4-Methylenedioxyamphetamine), MDEA (3,3-Jmuhqwbqhupszq-J-ethylcathinone), MDMA (Methylenedioxyamphetamine,Ecstasy), MEPERIDINE, METHADONE, METHAMPHETAMINE, METHYLPHENIDATE (Ritalin), MORPHINE, NALTREXONE, B-HGIHRMS-TIQKVHEQTS, NORCODEINE, NORDIAZEPAM, NORMEPERIDINE, B-PRE-MXKXQIVG, OXAZEPAM, OXYCODONE, OXYMORPHONE, PROPOXYPHENE, RITALINIC ACID, TAPENTADOL, [...] Res ult [facility] Special [facility] [address] [facility], [address] [place] [address] * THC Confirmation Quantitative Urine (06/24/2024 5:28 PM GYM MANAGER) [facility] THC Metabolite 358 ng/mL 07/03/2024 1:[address] [facility] Comment: Positive cuttoff: 5 ng/mL Quantitative result is marijuana metabolite measured as 79-lzh-qvlew-3-jjbwczg-JVS (carboxy-THC) by liquid chromatography with mass spectrometry [...] Ratio 628 ng/mg Creat 07/03/2024 1:[address] [facility] Urine URINE SPECIMEN OBTAINED BY CLEAN CATCH PROCEDURE / Unknown Non-blood Collection / Unknown 06/24/2024 5:28 PM GYM MANAGER 06/24/2024 10:03 PM GYM MANAGER Narrative [facility] - 07/03/2024 1:05 PM GYM MANAGER This test was developed and its performance characteristics determined by the [facility], Special Chemistry Laboratory. It has not been cleared or approved by the FDA. The laboratory is regulated under CLIA as qualified to perform high-complexity testing. This test is used for clinical purposes. It should not be regarded as investigational or for research. us Osmar Kitchen MD LAB - URINE ORDERABLES Final Res ult [facility] [address] [facility], [address] [address], [facility] * Benzodiazepines, Urine, Quantitative (06/24/2024 5:28 PM GYM MANAGER) Pathologist [facility] Diazepam, Urine <20 ng/mL 6:14 PM GYM MANAGER [facility] Comment:Cutoff: 20 ng/mL Oxazepam 377 ng/mL 06/28/2024 6:14 PM GYM MANAGER [facility] Comment:Cutoff: 20 ng/mL Temazepam, Urn, Quant 273 ng/mL 06/28/2024 6:14 PM GYM MANAGER [facility] Comment:Cutoff: 20 ng/mL Nordiazepam, Urn, Quant 262 ng/mL 06/28/2024 6:14 PM GYM MANAGER [facility] Comment:Cutoff: 20 ng/mL Chlordiazepoxide, Urn, Quant <20 ng/mL 06/28/2024 6:14 PM GYM MANAGER [facility] Comment:Cutoff: 20 ng/mL Lorazepam <20 ng/mL 06/28/2024 6:14 PM GYM MANAGER [facility] Comment:Cutoff: 20 ng/mL Alprazolam <5 ng/mL 06/28/2024 6:14 PM GYM MANAGER [facility] Comment:Cutoff: 5 ng/mL Alpha-Hydroxytriazol am, Urine 21 ng/mL 06/28/2024 6:14 PM GYM MANAGER [facility] Comment:Cutoff: 5 ng/mL Clonazepam, Urine <5 ng/mL 024 6:14 PM GYM MANAGER [facility] Comment:Cutoff: 5 ng/mL 7-aminoclonazepam, Urine <5 ng/mL 06/28/2024 6:14 PM GYM MANAGER [facility] Comment:Cutoff: 5 ng/mL Midazolam, Urine <20 ng/mL 06/28/20 24 6:14 PM GYM MANAGER [facility] Comment:Cutoff: 20 ng/mL Alpha-hydroxymidazol am, Urine <20 ng/mL 06/28/2024 6:14 PM GYM MANAGER [facility] [employer] Comment: Cutoff: 20 ng/mL INTERPRETIVE INFORMATION: Benzodiazepines, [...] developed and its performance characteristics determined by [employer]. It has not been cleared or approved by the US Food and Drug Administration. This test was performed in a CLIA certified laboratory and is intended for clinical purposes. Performed By: [employer] [address] [place] [id number] Director Digital Advertising: Edson Sheffield MD, PhD CLIA Number: [id number] Urine URINE SPECIMEN OBTAINED BY CLEAN CATCH PROCEDURE / Unknown Non-blood Collection / Unknown 06/24/2024 5:28 PM GYM MANAGER 06/24/2024 10:03 PM GYM MANAGER Osmar Kitchen MD LAB - URINE ORDERABLES Final Res ult [address] [address], [facility] [phone] * (ABNORMAL) Urine Drug Screen Panel (06/24/2024 5:28 PM GYM MANAGER) Only the most recent of2 resultswithin the time period is included. Amphetamines Urine Screen Negative Screen Negative 06/24/2024 10:03 PM GYM MANAGER UR LABORATORY Comment:Cutoff for a negativ e amphetamine is less than 500 ng/mL. Barbituates Urine Screen Negative Screen Negative 06/24/2024 10:03 PM GYM MANAGER [facility] Comment:Cutoff for a negativ e barbiturate is less than 200 ng/mL. Benzodiazepine Urine Screen Positive(A) Screen Negative 06/24/2024 10:03 PM GYM MANAGER UR LAB[facility]ORY Comment: Cutoff for a positive benzodiazepine is 100 ng/mL or greater. This is an unconfirmed screening result to be used for medical purposes only. Cannabinoids Urine Screen Positive(A) Screen Negative 06/24/2024 10:03 PM GYM MANAGER [facility] LAB[facility] Comment: Cutoff for a positive cannabinoid is 50 ng/mL or greater. This is an unconfirmed screening result to be used for medical purposes only. Cocaine Urine Screen Negative Screen Negative 06/24/2024 10:03 PM GYM MANAGER [facility] LAB[facility] Comment:Cutoff for a negativ e cocaine is less than 300 ng/mL. Fentanyl Qual Urine Screen Negative Screen Negative 06/24/2024 10:03 PM GYM MANAGER UR LAB[facility]ATORY Comment:Cutoff for negative fentanyl is less than 5 ng/mL. Opiates Urine Screen Negative Screen Negative 06/24/2024 10:03 PM GYM MANAGER UR LAB[facility] Comment:Cutoff for a negativ e opiate is less than 300 ng/mL. PCP Urine Screen Negative Screen Negative 06/24/2024 10:03 PM GYM MANAGER UR LAB[facility]ATORY Comment:Cutoff for a negativ e PCP is less than 25 ng/mL. Urine URINE SPECIMEN OBTAINED BY CLEAN CATCH PROCEDURE / Unknown Non-blood Collection / Unknown 06/24/2024 5:28 PM GYM MANAGER 06/24/2024 9:43 PM GYM MANAGER Osmar Kitchen MD LAB - URINE ORDERABLES Final Res ult UR LABORATORY [facility] Lab [address] [facility], [address] [place] [phone] * Phosphatidylethanol (PEth), Whole Blood (06/24/2024 8:14 AM GYM MANAGER) PEth 16:0/18:1 (POPEth) 71 ng/mL 06/26/2024 12:33 PM GYM MANAGER [facility] Comment: PEth 16:0/18:1 (POPEth) Less than 10 ng/mL............Not detected Less than 20 ng/mL............Abstinence or light alcohol consumption 20 - 200 ng/mL................Moderate alcohol consumption Greater than 200 ng/mL........Heavy alcohol consumption or chronic alcohol use (Reference: Arlette Marcos and Shira Bassett 2018 J. Forensic Sci) PEth 16:0/18:2 (PLPEth) 28 ng/mL 06/26/2024 12:33 PM [facility] [employer] Comment:Reference ranges are not well established. EER Phosphatidylethanol (PETH) See Note 06/26/2024 12:33 PM [facility] [employer] Comment: Authorized individuals can access the [facility] Enhanced Report using the following link: [email or web address] [email or web address] Interpretation See Comment 06/26/2024 12:33 PM [facility] [employer] Comment: Phosphatidylethanol (PEth) is a group of [...] developed and its performance characteristics determined by [employer]. It has not been cleared or approved by the U.S. Food and Drug Administration. This test was performed in a CLIA-certified laboratory and is intended for clinical purposes. Performed By: [employer] [address] [place] [id number] Director Digital Advertising: Edson Sheffield MD, PhD CLIA Number: [id number] Blood BLOOD SPECIMEN / Unknown Venipuncture / Unknown 06/24/2024 8:14 AM GYM MANAGER 06/24/2024 8:39 AM GYM MANAGER us Osmar Kitchen MD LAB - BLOOD ORDERABLES Final Res ult [facility] [address] [place] [address], [facility] [phone] * (ABNORMAL) Comprehensive metabolic panel (06/24/2024 8:14 AM GYM MANAGER) Only the most recent of7 resultswithin the time period is included. Sodium 135 135 - 145 mmol/L 06/24/2024 11:15 AM GYM MANAGER UR LABORATORY Potassium 3.5 3.4 - 5.3 mmol/L 06/24/2024 11:15 AM GYM MANAGER UR LABORATORY Carbon Dioxide (CO2) 27 22 - 29 mmol/L 06/24/2024 11:15 AM GYM MANAGER UR LAB[facility]ATORY Anion Gap 13 7 - 15 mmol/L 06/24/2024 11:15 AM GYM MANAGER UR LABORATORY Urea Nitrogen 13.0 6.0 - 20.0 mg/dL 06/24/2024 11:15 AM GYM MANAGER UR LABORATORY Creatinine 1.18(H) 0.67 - 1.17 mg/dL 06/24/2024 11:15 AM GYM MANAGER UR LABORATORY GFR Estimate 86 >60 mL/min/1.7 3m2 06/24/2024 11:15 AM GYM MANAGER UR LAB[facility] Comment:eGFR calculated us2020 CKD-EPI equation. Calcium 9.4 8.8 - 10.4 mg/dL 06/24/2024 11:15 AM GYM MANAGER UR LAB[facility]ATORY Comment:Reference intervals for this test were updated on 02/03/2024 to reflect our healthy population more accurately. There may be differences in the flagging of prior results with similar values performed with this method. Those prior results can be interpreted in the context of the updated reference intervals. Chloride 95(L) 98 - 107 mmol/L 06/24/2024 11:15 AM GYM MANAGER UR LABORATORY Glucose 111(H) 70 - 99 mg/dL 06/24/2024 11:15 AM GYM MANAGER UR LAB[facility]ATORY Alkaline Phosphatase 78 40 - 150 U/L 06/24/2024 11:15 AM GYM MANAGER UR LAB[facility]ATORY AST 15 0 - 45 U/L 06/24/2024 11:15 AM GYM MANAGER UR LAB[facility]ATORY ALT 15 0 - 70 U/L 06/24/2024 11:15 AM GYM MANAGER UR LAB[facility]ATORY Protein Total 6.2(L) 6.4 - 8.3 g/dL 06/24/2024 11:15 AM GYM MANAGER UR LAB[facility] Albumin 4.2 3.5 - 5.2 g/dL 06/24/2024 11:15 AM GYM MANAGER UR LAB[facility]ATORY Bilirubin Total 0.7 <=1.2 mg/dL 06/24/2024 11:15 AM GYM MANAGER UR LAB[facility]ATORY Blood BLOOD SPECIMEN / Unknown Venipuncture / Unknown 06/24/2024 8:14 AM GYM MANAGER 06/24/2024 8:39 AM GYM MANAGER us Dillon Euceda PA-C LAB - BLOOD ORDERABLES Final Res ult UR LABORATORY [facility] Acute Care Lab [address] [facility], [address] [place] [address] * (ABNORMAL) CBC with platelets (06/24/2024 8:14 AM GYM MANAGER) Only the most recent of3 resultswithin the time period is included. WBC Count 9.8 4.0 - 11.0 10e3/uL 06/24/2024 8:50 AM GYM MANAGER UR LABORATORY RBC Count 4.16(L) 4.40 - 5.90 10e6/uL 06/24/2024 8:50 AM GYM MANAGER UR LAB[facility]ATORY Hemoglobin 11.1(L) 13.3 - 17.7 g/dL 06/24/2024 8:50 AM GYM MANAGER UR LAB[facility]ATORY Hematocrit 33.5(L) 40.0 - 53.0 % 06/24/2024 8:50 AM GYM MANAGER UR LABORATORY MCV 81 78 - 100 fL 06/24/2024 8:50 AM GYM MANAGER UR LABORATORY MCH 26.7 26.5 - 33.0 pg 06/24/2024 8:50 AM GYM MANAGER UR LABORATORY MCHC 33.1 31.5 - 36.5 g/dL 06/24/2024 8:50 AM GYM MANAGER UR LABORATORY RDW 16.2(H) 10.0 - 15.0 % 06/24/2024 8:50 AM GYM MANAGER UR LABORATORY Platelet Count 472(H) 150 - 450 10e3/uL 06/24/2024 8:50 AM GYM MANAGER UR LABORATORY Blood BLOOD SPECIMEN / Unknown Venipuncture / Unknown 06/24/2024 8:14 AM GYM MANAGER 06/24/2024 8:39 AM GYM MANAGER Dillon Eucead PA-C LAB - BLOOD ORDERABLES Final Res ult UR LABORATORY [facility] Lab [address] [facility], [address] [place] [address] * Lactic acid whole blood (06/23/2024 6:19 PM GYM MANAGER) Only the most recent of2 resultswithin the time period is included. Lactic Acid 1.1 0.7 - 2.0 mmol/L 06/23/2024 6:31 PM GYM MANAGER [facility] Blood STRUCTURE OF RIGHT UPPER LIMB / Unknown Venipuncture / Unknown 06/23/2024 6:19 PM GYM MANAGER 06/23/2024 6:27 PM GYM MANAGER Yamil Espinosa MD LAB - BLOOD ORDERABLES Final R esult [facility] LABORATORY [facility] Core Lab [address] [facility], [address] [place] [address] * (ABNORMAL) Lactic acid whole blood with 1x repeat in 2 hr when >2 (06/23/2024 3:49 PM GYM MANAGER) Lactic Acid, Initial 2.2(H) 0.7 - 2.0 mmol/L 06/23/2024 4:11 PM GYM MANAGER [facility] Blood BLOOD SPECIMEN / Unknown Venipuncture / Unknown 06/23/2024 3:49 PM GYM MANAGER 06/23/2024 3:59 PM GYM MANAGER Yamil Espinosa MD LAB - BLOOD ORDERABLES Final R esult [facility] LABORATORY [facility] [address] [facility] [address], [address] [place] [phone] * Adult Type and Screen (06/23/2024 3:49 PM GYM MANAGER) Only the most recent of3 resultswithin the time period is included. ABO/RH(D) B POS 06/23/2024 3:38 PM GYM MANAGER U BLOOD BANK Antibody Screen Negative Negative 06/23/2024 3:38 PM GYM MANAGER U BLOOD BANK SPECIMEN EXPIRATION DATE [id number] 06/23/2024 3:38 PM GYM MANAGER BLOOD BANK Blood BLOOD SPECIMEN / Unknown Venipuncture / Unknown 06/23/2024 3:49 PM GYM MANAGER 06/23/2024 3:59 PM GYM MANAGER us Yamil Espinosa MD LAB - BLOOD BANK TEST ORDER Fi nal Result Performing Organization Address [facility] Co de Phone Number BLOOD BANK [address] [place] [address] * EKG 12-lead, tracing only (06/23/2024 3:46 PM GYM MANAGER) Only the most recent of4 resultswithin the time period is included. Pathologist [facility] Systolic Blood Pressure mmHg RADIOLOGY RESULTS Diastolic Blood Pressure mmHg RADIOLOGY RESULTS Ventricular Rate 90 BPM RAD IOLOGY RESULTS Atrial Rate 90 BPM RADIOLOG Y RESULTS NJ Interval 136 ms RADIOLOG Y RESULTS QRS Duration 84 ms RADIOLO GY RESULTS QT 384 ms RADIOLOGY RESULTS QTc 469 ms RADIOLOGY RESULTS P Meade 80 degrees RADIOLOGY RESULTS R AXIS 55 degrees RADIOLOGY RESULTS T [place]ade 52 degrees RADIOLOGY RESULTS Interpretation ECG Sinus rhythm Normal ECG Unconfirmed report - interpretation of this ECG is computer generated - see medical record for final interpretation Confirmed by - EMERGENCY ROOM, PHYSICIAN ([id number]), editor trade journal CORRINA COSTELLO ([id number]) on 06/24/2024 7:43:56 AM RADIOLOGY RESULTS 06/23/2024 3:46 PM GYM MANAGER 06/24/2024 7:43 AM GYM MANAGER us Yamil Espinosa MD ECG ORDERABLES Edited Result - Final RADIOLOGY RESULTS * Extra Red Top Tube (06/23/2024 3:42 PM GYM MANAGER) Hold Specimen [facility] 06/23/2024 5:02 PM GYM MANAGER U LABORATORY Blood STRUCTURE OF LEFT UPPER LIMB / Unknown Venipuncture / Unknown 06/23/2024 3:42 PM GYM MANAGER 06/23/2024 4:00 PM GYM MANAGER Adam Barros DO LAB - BLOOD ORDERABLES Fi nal Result Performing Organization Address City/[facility]/ZIP Co de Phone Number U LABORATORY [facility] [address] [facility], [address] * Extra Blue Top Tube (06/23/2024 3:42 PM GYM MANAGER) Hold Specimen [facility] 06/23/2024 5:02 PM GYM MANAGER LABORATORY Blood STRUCTURE OF LEFT UPPER LIMB / Unknown Venipuncture / Unknown 06/23/2024 3:42 PM GYM MANAGER 06/23/2024 4:00 PM GYM MANAGER us Adam Barros DO LAB - BLOOD ORDERABLES Fi nal Result Performing Organization Address [facility] de Phone Number LABORATORY [facility] [address] [facility], [address] * INR (06/23/2024 3:42 PM GYM MANAGER) Only the most recent of3 resultswithin the time period is included. INR 1.08 0.85 - 1.15 06/23/2024 4:25 PM GYM MANAGER U LABORATORY Blood STRUCTURE OF LEFT UPPER LIMB / Unknown Venipuncture / Unknown 06/23/2024 3:42 PM GYM MANAGER 06/23/2024 4:00 PM GYM MANAGER Yamil Espinosa MD LAB - BLOOD ORDERABLES Final R esult [facility] LABORATORY [facility] [address] [facility], [address] [phone] * Phosphorus (06/23/2024 3:42 PM GYM MANAGER) Only the most recent of11 resultswithin the time period is included. Phosphorus 2.6 2.5 - 4.5 mg/dL 06/23/2024 7:44 PM GYM MANAGER [facility] Blood STRUCTURE OF LEFT UPPER LIMB / Unknown Venipuncture / Unknown 06/23/2024 3:42 PM GYM MANAGER 06/23/2024 4:00 PM GYM MANAGER us Dillon Euceda PA-C LAB - BLOOD ORDERABLES Final Res ult [facility] LABORATORY [facility] Core Lab [address] [facility], [address] [address] * Potassium (06/16/2024 11:47 PM GYM MANAGER) Only the most recent of9 resultswithin the time period is included. Potassium 3.8 3.4 - 5.3 mmol/L 06/17/2024 12:16 AM GYM MANAGER UR LABORATORY Blood STRUCTURE OF RIGHT UPPER LIMB / Unknown Venipuncture / Unknown 06/16/2024 11:47 PM GYM MANAGER 06/16/2024 11:53 PM GYM MANAGER us Remy Johnson MD LAB - BLOOD ORDERABLES Corie l Result UR LABORATORY [facility] Acute Care Lab [address] [facility], [address] [place] [address], [facility] * Troponin T, High Sensitivity (06/15/2024 3:43 PM GYM MANAGER) Only the most recent of2 resultswithin the time period is included. Troponin T, High Sensitivity 15 <=22 ng/L 06/15/2024 4:15 PM GYM MANAGER UR LABORATORY Comment: Either a High Sensitivity [...] Unknown Venipuncture / Unknown 06/15/2024 3:43 PM GYM MANAGER 06/15/2024 3:52 PM GYM MANAGER Remy Johnson MD LAB - BLOOD ORDERABLES Corie l Result UR LABORATORY [facility] Acute [facility] Lab [address] [place] [address], [address] * Extra Blood Bank Purple Top Tube (06/14/2024 8:24 PM GYM MANAGER) Hold Specimen [facility] 06/14/2024 9:46 PM GYM MANAGER UR LABORATORY Blood BLOOD SPECIMEN / Unknown Venipuncture / Unknown 06/14/2024 8:24 PM GYM MANAGER 06/14/2024 8:37 PM GYM MANAGER Clinton Smith MD LAB - BLOOD ORDERABLES Final Res ult UR LABORATORY [facility] Acute [facility] Lab [address] [place] [address], [address] * (ABNORMAL) Hemoglobin (06/01/2024 1:49 PM GYM MANAGER) Only the most recent of13 resultswithin the time period is included. Hemoglobin 8.9(L) 13.3 - 17.7 g/dL 06/01/2024 2:09 PM GYM MANAGER [facility] Blood STRUCTURE OF RIGHT UPPER LIMB / Unknown VAD(CVC, PICC) / Unknown 06/01/2024 1:49 PM GYM MANAGER 06/01/2024 1:55 PM GYM MANAGER Alex Lyons MD LAB - BLOOD ORDERABLES Final Res ult LABORATORY [facility] [address] [facility] [address], [address] [place] [address] * UPPER GI ENDOSCOPY (06/01/2024 11:25 AM GYM MANAGER) Upper GI Endoscopy [facility] [address] [place] [address] [phone] Endoscopy Department ___ Patient Name: Claudio Sapp Procedure Date: 06/01/2024 11:25 AM Date of : 1995 Admit Type: Inpatient Age: 28 Room: [place] [address] Gender: Male Note Status: Finalized Attending MD: [...] Out: RADIOLOGY RESULTS 06/01/2024 11:2 5 AM GYM MANAGER us Chas Perez MD PROCEDURES Final Resul t RADIOLOGY RESULTS * (ABNORMAL) Glucose by meter (05/30/2024 10:40 PM GYM MANAGER) GLUCOSE BY METER POCT 106(H) 70 - 99 mg/dL 05/30/2024 10:47 PM GYM MANAGER [facility] POC Blood, venous BLOOD SPECIMEN / Unknown 05/30/2024 10:40 PM GYM MANAGER 05/30/2024 10:47 PM GYM MANAGER us Teja Harrison MD LAB - BEAKER POCT Final Result Performing Organization Address City/[facility]/ZIP Co de Phone Number [facility]AT[facility] POC [facility] [address], [address] [place] [address] * Transfuse red blood cells (unit) (05/30/2024 8:24 PM GYM MANAGER) us Joshua Berry PA-C BLOOD TRANSFUSION ORDERABLE S Final Result * Prepare red blood cells (unit) (05/30/2024 3:40 PM GYM MANAGER) Blood Component Type Red Blood Cells [facility] BANK Product Code [id number] [facility] BLOO D BANK Unit Status Transfused UU BLOO D BANK Unit Number [id number] UU B LOOD BANK CROSSMATCH Compatible UU BLOOD BANK CODING SYSTEM [id number] UU BLO OD BANK ISSUE DATE AND TIME [id number] [facility] BLOOD BANK UNIT ABO/RH B+ [facility]U BLOOD BANK UNIT TYPE ISBT 7300 U[facility] BL OOD BANK 05/30/2024 3:40 PM GYM MANAGER us Joshua Berry PA-C BLOOD BANK PRODUCT ORDERABL ES Final Result Performing Organization Address City/[facility]/ZIP Co de Phone Number UU BLOOD BANK [address] [place] [address] * Triple Lumen PICC Placement (05/30/2024 10:44 AM GYM MANAGER) Narrative Sukhjinder Jang RN - 05/30/2024 10:44 AM GYM MANAGER Sukhjinder Jang RN 05/30/2024 10:47 AM [facility] Triple Lumen PICC Placement Date/Time: 05/30/2024 [...] the procedure a time out was called Lehighton Protocol: the Joint [facility] Lehighton Protocol was followed Preparation: Patient was prepped [...] size: 5 Fr Brand: Bard Lot number: [id number] Placement method: venipuncture, MST, ultrasound and tip [...] is in satisfactory location as verified by [employer] 3CG Tip Confirmation System. PICC is OK to use. Disposal: sharps and needle count correct at the end of procedure, needles and guidewire disposed in sharps container us Sammi Dominguez PA-C PROCEDURE/MINOR SURGICAL ORDERA BLES Final Result * Osmolality (05/29/2024 5:51 PM GYM MANAGER) Osmolality Blood 279 275 - 295 mmol/kg 05/29/2024 6:40 PM GYM MANAGER [facility] Blood STRUCTURE OF RIGHT HAND / Unknown Venipuncture / Unknown 05/29/2024 5:51 PM GYM MANAGER 05/29/2024 5:56 PM GYM MANAGER Narrative [facility] - 05/29/2024 6:40 PM GYM MANAGER Greater than 385 mmol/kg relates to stupor in hyperglycemia Greater than 400 mmol/kg can relate to seizures Greater than 420 mmol/kg can be lethal Serum Osmalar Gap: Normal <10 Larger suggest unmeasured substances present in serum (ethanol, methanol, isopropanol, mannitol, ethylene glycol). us Luis Dunne PA-C LAB - BLOOD ORDERABLES F inal Result [facility] Core Lab [address], [address] [place] [phone] * Sodium random urine (05/29/2024 9:35 AM GYM MANAGER) Sodium Urine mmol/L 29 mmol/L 05/29/2024 12:44 PM GYM MANAGER [facility] Comment:The reference ranges have not been established in urine sodium. The results should be integrated into the clinical context for interpretation. Urine URINE SPECIMEN OBTAINED BY CLEAN CATCH PROCEDURE / Unknown Non-blood Collection / Unknown 05/29/2024 9:35 AM GYM MANAGER 05/29/2024 9:41 AM GYM MANAGER us Luis Nicola Vibha PA-C LAB - URINE ORDERABLES F inal Result Performing Organization Address [facility] de Phone Number U LABORATORY [facility] [address], [address] [phone] * Osmolality urine (05/29/2024 9:35 AM GYM MANAGER) Osmolality Urine 294 100 - 1,200 mmol/kg 05/29/2024 1:00 PM GYM MANAGER [facility] Urine URINE SPECIMEN OBTAINED BY CLEAN CATCH PROCEDURE / Unknown Non-blood Collection / Unknown 05/29/2024 9:35 AM GYM MANAGER 05/29/2024 9:41 AM GYM MANAGER Narrative [facility] - 05/29/2024 1:00 PM GYM MANAGER Reference Ranges depend on patient's hydration status and renal function. Neonates: 75-300 mmol/kg 2 years and older, random specimens: 100-1200 mmol/kg; Greater than 850 mmol/kg after 12 hour fluid restriction Urine/serum osmolality ratio: 2 years and older: 1.0-3.0; 3.0-4.7 after 12 hour fluid restriction Luis GUERRERO-C LAB - URINE ORDERABLES F inal Result Performing Organization Address [facility] de Phone Number LABORATORY [facility] Core Lab [address], [address] [place], [place] [phone] * Fibrinogen activity (05/29/2024 9:35 AM GYM MANAGER) Fibrinogen Activity 278 170 - 510 mg/dL 05/29/2024 4:48 PM GYM MANAGER [facility] Comment:Effective 02/17/2024, the reference range for this assay has changed. There may be differences in the flagging of prior results with similar values performed with this method. Blood BLOOD SPECIMEN / Unknown Venipuncture / Unknown 05/29/2024 9:35 AM GYM MANAGER 05/29/2024 9:46 AM GYM MANAGER Luis GUERRERO-C LAB - BLOOD ORDERABLES F inal Result Performing Organization Address City/[facility] Co de Phone Number [facility]OR[facility] [address], [address] [place] [address], [facility] * (ABNORMAL) iStat Gases Electrolytes ICA Glucose Venous, POCT (05/29/2024 7:11 AM GYM MANAGER) CPB Applied No 05/29/2024 7:15 AM GYM MANAGER [facility] LABORATORY POC Comment:000 Hematocrit POCT 45 40 - 53 % 7:15 AM GYM MANAGER [facility] POC Comment:000 Calcium, Ionized Whole Blood POCT 4.2(L) 4.4 - 5.2 mg/dL 05/29/2024 7:15 AM GYM MANAGER [facility] LABORATORY POC Comment:000 Glucose Whole Blood POCT 127(H) 70 - 99 mg/dL 05/29/2024 7:15 AM GYM MANAGER [facility] LABORAT[facility] POC Comment:000 Bicarbonate Venous POCT 41(H) 21 - 28 mmol/L 05/29/2024 7:15 AM GYM MANAGER [facility] LAB[facility]ATORY POC Comment:000 Hemoglobin POCT 15.3 13.3 - 17.7 g/dL 05/29/2024 7:15 AM GYM MANAGER [facility] POC Comment:000 Potassium POCT 2.2(LL) 3.4 - 5.3 mmol/L 05/29/2024 7:15 AM GYM MANAGER [facility] LABORATORY POC Comment:000 Sodium POCT 123(L) 135 - 145 mmol/L 05/29/2024 7:15 AM GYM MANAGER [facility] LABORATORY POC Comment:000 pCO2 Venous POCT 43 40 - 50 mm Hg 05/29/2024 7:15 AM GYM MANAGER [facility] LABORATORY POC Comment:000 pO2 Venous POCT 40 25 - 47 mm Hg 05/29/2024 7:15 AM GYM MANAGER [facility] LABORATORY POC Comment:000 pH Venous POCT 7.58(H) 7.32 - 7.43 05/29/2024 7:15 AM GYM MANAGER [facility] LABORATORY POC Comment:000 O2 Sat, Venous POCT 82(H) 70 - 75 % 05/29/2024 7:15 AM GYM MANAGER [facility] LABORATORY POC Comment:000 Base Excess/Deficit (+/-) POCT 17.0(H) -3.0 - 3.0 mmol/L 05/29/2024 7:15 AM GYM MANAGER [facility] LABORATORY POC Comment:000 Blood, venous BLOOD SPECIMEN / Unknown 05/29/2024 7:11 AM GYM MANAGER 05/29/2024 7:15 AM GYM MANAGER us Provider Unknown LAB - BEAKER POCT Final Result UR LABORATORY POC [facility] Acute Care Lab [address] [facility], [address] * Alcohol breath test POCT (05/29/2024 5:48 AM GYM MANAGER) Alcohol Breath Test 0.00 0.00 - 0.01 [facility] LAB[facility]ATORY POC Breath us Pankaj Sidhu MD LAB - ENTER/EDIT POCT Final Result Performing Organization Address City/[facility] Co de Phone Number UR LABORATORY POC [facility] [address] [facility] from Last 3 Months Insurance [employer] [facility] Address: [id number] [place] [address] [employer] [facility] [place] [place] [address] Advance Directives For more information, please contact: [phone] Documents on File Type Date Recorded Patient Rotoprinter Expl anation Advance Directives and Living Will [...] Second Alternate Health Care Agent Care Teams Storage Management Consultant Relationship Specialty Start Date End Date Deepthi Mc [address] [place] [address] PCP - General Physician Clinical Aide 06/15/23
--- OUTSIDE RECORDS SUMMARY | 2024-08-16 19:19 | XMS_ITS | Encounter Summary ---
Author Organization [place] Address [address] [place] [address]. [place] [address] Care Team Providers Care Roll Up Guider Operator Name Role Phone Deepthi Mc Primary Care Provider [phone] Reason for Visit * Reason Comments Advance Care Planning Encounter Details Date Type Department Care Team (Latest Contact Info) Description 07/12/2024 Documentation Only [facility] [address] [facility] [address] [place] [phone] Christine Ugarte Advance Care Planning Social History [...] in an abandoned building, in an overnight prison, or couch-surfing.) Yes 06/23/2024 Are you worried [...] on filedocumented in this encounter Care Teams Roll Up Guider Operator Relationship Specialty Start Date End Date Deepthi Mc [address] [place] [address] PCP - General Physician Industry Operations Investigator 06/15/23 documented as of this encounter
--- OUTSIDE RECORDS SUMMARY | 2024-08-16 19:19 | XMS_ITS | Encounter Summary ---
Author Organization [place] Address [address] [place] [address]. [place] [address] Care Team Providers Care Palletiser Operator Name Role Phone Deepthi Mc Primary Care Provider [phone] Encounter Details Date Type Department Care Team [...] in an abandoned building, in an overnight [facility], or couch-surfing.) Yes 06/23/2024 Are you worried [...] on filedocumented in this encounter Care Teams Palletiser Operator Relationship Specialty Start Date End Date Deepthi Mc [address] [place] [address] PCP - General Physician Carburizing Furnace Operator 06/15/23 documented as of this encounter
--- OUTSIDE RECORDS SUMMARY | 2024-08-16 19:19 | XMS_ITS | Clinical Summary ---
Author Organization [facility] Address [address] [place] [address] Care Team Providers Care Heel Nailing Machine Operator Name Role Phone Elsewhere, Pcp Primary Care Provider Unavailabl e Source Comments Patient records contain information from all sites at [facility]. For routine questions regarding patient records, call [phone] during business hours, M-F 8:00 AM - 5:00 PM Central Time. Record requests for emergency care only can be directed to [phone] at any time.[facility] Allergies Active Allergy Reactions Criticality Noted [...] history of withdrawal seizures or withdrawal complications. [place] admission on 03/26/20 for alcohol withdrawal and discharged on 03/28/20. Patient is interested in quitting. Has previously tried clonidine and naltrexone. Insomnia 09/19/2016 Cyclical Vomiting Syndrome Unrelated To Migraine 04/04/2016 Depressive Disorder 05/16/2014 Anxiety Generalized Disorder 12/03/2013 Overview (03/26/2020): Under the care of Dr. Rafat Falcon for mental health care. [facility] . Initial intake 12/10/12 Previous [...] visit for cyclic vomiting; hospitalization at [facility] 05/03 (72 hr hold); 12/01 at [place] [...] e alcohol) 750 ml straight Vodka Daily handsomexcutive Answer Date Recorded In the past 12 months has e [employer], [employer], oil, or water garbs threatened to shut off services in your [...] your living situation today? 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 LAB BLOOD ADD-ON Final Result [facility] [address] [place] [address], [place] ST[facility] [address] [place] [address] from Last 3 Months or Most Recently Relevant to Health Maintenance Insurance [facility] Advance Directives For more information, please contact: [phone] * Full Code (Latest Code Status on [...] Due to: Not medically appropriate Care Teams Heel Nailing Machine Operator Relationship Specialty Start Date End Date Elsewhere, Pcp PCP - General Internal Medicine 03/26/24
--- OUTSIDE RECORDS SUMMARY | 2024-08-16 19:19 | XMS_ITS | Encounter Summary ---
Author Organization [place] Address [facility] [place] [address] Care Team Providers Care Dice Manager Name Role Phone Deepthi Mc Primary Care Provider Reason for Visit * Reason Comments Abdominal Pain Encounter Details Date Type Department Care Team (Late st Contact Info) Description 07/11/2024 3:18 PM AERIAL GUNNER - 07/11/2024 6:55 PM AERIAL GUNNER Emergency [facility] Emergency Department [facility] [place] [address] Clinton Franklin DO [facility] [address] [address] [address] [place], [place] [address] Cyclic vomiting syndrome Discharge Disposition: Home or [...] in an abandoned building, in an overnight jail, or couch-surfing.) Yes 06/23/2024 Are you worried [...] Comments Blood Pressure 120/71 07/11/2024 6:21 PM AERIAL GUNNER Pulse 114 07/11/2024 6:21 PM AERIAL GUNNER Temperature 36.7 C (98.1 F) 07/11/2024 3:12 PM AERIAL GUNNER Respiratory Rate 28 07/11/2024 3:12 PM AERIAL GUNNER Oxygen Saturation 100% 07/11/2024 6:21 PM AERIAL GUNNER Inhaled Oxygen Concentration - - Weight 104.3 kg (230 lb) 07/11/2024 3:12 PM AERIAL GUNNER Height 182.9 cm (6') 07/11/2024 3:12 PM AERIAL GUNNER Body Mass Index 31.19 07/11/2024 3:12 PM AERIAL GUNNER documented in this encounter Discharge Instructions * Discharge Instructions* Clinton Franklin DO - 07/11/2024 6:48 PM AERIAL GUNNER Continue Zofran as needed for nausea. Use Tylenol as needed for any abdominal pain. If you have recurrent abdominal pain not improved with Tylenol or vomiting despite use of Zofran or develop any newsymptoms including fever return to the emergency department. AL GUNNER * Attachments The following attachments cannot be sent through Care Everywhere. * Cyclic Vomiting Syndrome: General Info (Lao) * Nausea and Vomiting (Lao) documented in this encounter Medications at Time [...] was last seen in this emergency department ([facility] Emergency Department) on 06/27/2024 for evaluation of [...] N/A I reviewed these outside records: 06/27/2024, [facility] Emergency Department I noted these abnormal vital [...] information was obtained from: Patient Use of Family Medicine Physician Assistant: N/A REVIEW OF SYSTEMS: All other systems [...] 07/11/2024 15:09 HR: 110 bpm Rhythm: Sinus [place]: 63 QRS duration: 82 ms QTC: 470 [...] interpretation. Clinton Franklin D.O. EMERGENCY MEDICINE 07/11/24 [facility] EMERGENCY DEPARTMENT [address] [place] [id number] Dept: [phone] Clinton Franklin DO 07/11/24 1901 AL GUNNER * Fidelina Parrish RN - 07/11/2024 3:10 [...] WDL WDL Cognitive/Neuro/Behavioral WDL Cognitive/Neuro/Behavioral WDL WDL AL GUNNER documented in this encounter Plan of Treatment Not on file documented as of this encounter Procedures Procedure Name Priority Date/Time Associated Diagnosis Comments EXTRA TUBE STAT 07/11/2024 3:25 PM AERIAL GUNNER EXTRA PURPLE TOP TUBE STAT 07/11/2024 3:25 PM AERIAL GUNNER EXTRA GREEN TOP (LITHIUM HEPARIN) TUBE STAT 07/11/2024 3:25 PM AERIAL GUNNER RBC AND PLATELET MORPHOLOGY STAT 07/11/2024 3:25 PM AERIAL GUNNER CBC WITH PLATELETS AND DIFFERENTIAL STAT 07/11/2024 3:25 PM AERIAL GUNNER CBC WITH PLATELETS & DIFFERENTIAL STAT 07/11/2024 3:25 PM AERIAL GUNNER LIPASE STAT 07/11/2024 3:25 PM AERIAL GUNNER HEPATIC FUNCTION PANEL STAT 07/11/2024 3:25 PM AERIAL GUNNER BASIC METABOLIC PANEL STAT 07/11/2024 3:25 PM AERIAL GUNNER documented in this encounter Results * RBC and Platelet Morphology (07/11/2024 3:25 PM AERIAL GUNNER) Pathologist [facility] RBC Morphology Confirmed RBC Indices 07/11/2024 4:32 PM AERIAL GUNNER [facility] Platelet Assessment Automated Count Confirmed. Platelet morphology is normal. Automated Count Confirmed. Platelet morphology is normal. ALBERTO 07/11/2024 4:32 PM AERIAL GUNNER [facility] Blood VENOUS LINE / Unknown Venipuncture / Unknown 07/11/2024 3:25 PM AERIAL GUNNER 07/11/2024 3:30 PM AERIAL GUNNER Clinton Franklin DO LAB - BLOOD ORDERABLES Final R esult [facility] [address] [place] [address], [facility] * (ABNORMAL) CBC with platelets and differential (07/11/2024 3:25 PM AERIAL GUNNER) [facility] WBC Count 18.8(H) 4.0 - 11.0 10e3/uL 07/11/2024 4:32 PM AERIAL GUNNER N LABORATORY RBC Count 4.37(L) 4.40 - 5.90 10e6/uL 07/11/2024 4:32 PM [facility] GUNNER [facility] Hemoglobin 10.9(L) 13.3 - 17.7 g/dL 07/11/2024 4:32 PM AERIAL GUNNER [facility] Hematocrit 32.9(L) 40.0 - 53.0 % 07/11/2024 4:32 PM AERIAL GUNNER [facility] MCV 75(L) 78 - 100 fL 07/11/2024 4:32 PM AERIAL GUNNER [facility] MCH 24.9(L) 26.5 - 33.0 pg 07/11/2024 4:32 PM AERIAL GUNNER [facility] MCHC 33.1 31.5 - 36.5 g/dL 07/11/2024 4:32 PM AERIAL GUNNER [facility] RDW 16.9(H) 10.0 - 15.0 % 07/11/2024 4:32 PM AERIAL GUNNER [facility] Platelet Count 529(H) 150 - 450 10e3/uL 07/11/2024 4:32 PM AERIAL GUNNER [facility] % Neutrophils 82 % 07/11/2024 4:32 PM [facility] G[facility]NER [facility] % Lymphocytes 8 % 07/11/2024 4:32 PM [facility] G[facility]NER [facility] % Monocytes 9 % 07/11/2024 4:32 PM [facility] G[facility]NER [facility] % Eosinophils 0 % 07/11/2024 4:32 PM [facility] G[facility]NER [facility] % Basophils 0 % 07/11/2024 4:32 PM [facility] G[facility]NER [facility] % Immature Granulocytes 0 % 07/11/2024 4:32 PM AERIAL GUNNER [facility] NRBCs per 100 WBC 0 <1 /100 024 4:32 PM AERIAL GUNNER [facility] Absolute Neutrophils 15.5(H) 1.6 - 8.3 10e3/uL 07/11/2024 4:32 PM [facility] GUNNER [facility] Absolute Lymphocytes 1.6 0.8 - 5.3 10e3/uL 07/11/2024 4:32 PM AERIAL GUNNER [facility] Absolute Monocytes 1.6(H) 0.0 - 1.3 10e3/uL 07/11/2024 4:32 PM AERIAL GUNNER [facility] Absolute Eosinophils 0.0 0.0 - 0.7 10e3/uL 07/11/2024 4:32 PM AERIAL GUNNER [facility] Absolute Basophils 0.0 0.0 - 0.2 10e3/uL 07/11/2024 4:32 PM AERIAL GUNNER [facility] Absolute Immature Granulocytes 0.1 <=0.4 10e3/uL 07/11/2024 4:32 PM AERIAL GUNNER [facility] Absolute NRBCs 0.0 10e3/uL 07/11/2024 4:32 PM [facility] G[facility]NER [facility] Blood VENOUS LINE / Unknown Venipuncture / Unknown 07/11/2024 3:25 PM AERIAL GUNNER 07/11/2024 3:30 PM AERIAL GUNNER Clinton Gómezick DO LAB - BLOOD ORDERABLES Final R esult Performing Organization Address [facility] Co de Phone Number N LABORATORY [facility] [address] [place] [address], [facility] * Lipase (07/11/2024 3:25 PM AERIAL GUNNER) [facility] Lipase 26 13 - 60 U/L 07/11/2024 3:51 PM AERIAL GUNNER N LABORATORY Blood VENOUS LINE / Unknown Venipuncture / Unknown 07/11/2024 3:25 PM AERIAL GUNNER 07/11/2024 3:30 PM AERIAL GUNNER Clinton Franklin LAB - BLOOD ORDERABLES Final R [facility] Performing Organization Address [facility] de Phone Number [facility] [address] [place] [address], [facility] * (ABNORMAL) Hepatic function panel (07/11/2024 3:25 PM AERIAL GUNNER) Pathologist [facility] Protein Total 7.6 6.4 - 8.3 g/dL 07/11/2024 3:51 PM AERIAL GUNNER [facility] Albumin 5.1 3.5 - 5.2 g/dL 07/11/2024 3:51 PM AERIAL GUNNER [facility] Bilirubin Total 1.4(H) <=1.2 mg/dL 07/11/2024 3:51 PM [facility]ERIAL GUNNER [facility] Alkaline Phosphatase 89 40 - 150 U/L 07/11/2024 3:51 PM AERIAL GUNNER [facility] AST 33 0 - 45 U/L 07/11/2024 3:51 PM AERIAL GUNNER [facility] ALT 22 0 - 70 U/L 07/11/2024 3:51 PM AERIAL GUNNER [facility] Bilirubin Direct 0.29 0.00 - 0.30 mg/dL 07/11/2024 3:51 PM [facility] Blood VENOUS LINE / Unknown Venipuncture / Unknown 07/11/2024 3:25 PM AERIAL GUNNER 07/11/2024 3:30 PM AERIAL GUNNER Clinton Franklin DO LAB - BLOOD ORDERABLES Final R esult [facility] [address] [place] [address], [facility] * (ABNORMAL) Basic metabolic panel (07/11/2024 3:25 PM AERIAL GUNNER) Sodium 132(L) 135 - 145 mmol/L 07/11/2024 4:23 PM [facility] Potassium 3.9 3.4 - 5.3 mmol/L 07/11/2024 4:23 PM [facility] Chloride 93(L) 98 - 107 mmol/L 07/11/2024 4:23 PM [facility] Carbon Dioxide (CO2) 20(L) 22 - 29 mmol/L 07/11/2024 4:23 PM [facility] Anion Gap 19(H) 7 - 15 mmol/L 07/11/2024 4:23 PM [facility] Urea Nitrogen 22.7(H) 6.0 - 20.0 mg/dL 07/11/2024 4:23 PM [facility] Creatinine 0.81 0.67 - 1.17 mg/dL 07/11/2024 4:23 PM [facility] GFR Estimate >90 >60 mL/min/1.7 3m2 07/11/2024 4:23 PM [facility] Comment:eGFR calculated usin g 2020 CKD-EPI equation. Calcium 10.9(H) 8.8 - 10.4 mg/dL 07/11/2024 4:23 PM [facility] Comment:Reference intervals for this test were updated on 02/03/2024 to reflect our healthy population more accurately. There may be differences in the flagging of prior results with similar values performed with this method. Those prior results can be interpreted in the context of the updated reference intervals. Glucose 110(H) 70 - 99 mg/dL 07/11/2024 4:23 PM AERIAL GUNNER [facility] Blood VENOUS LINE / Unknown Venipuncture / Unknown 07/11/2024 3:25 PM AERIAL GUNNER 07/11/2024 3:30 PM AERIAL GUNNER Clinton Franklin DO LAB - BLOOD ORDERABLES Final R esult Performing Organization Address [facility] Co de Phone Number [facility] [address] * Extra Purple Top Tube (07/11/2024 3:25 PM AERIAL GUNNER) Hold Specimen [facility] 07/11/2024 4:32 PM AERIAL GUNNER [facility] Blood VENOUS LINE / Unknown Venipuncture / Unknown 07/11/2024 3:25 PM AERIAL GUNNER 07/11/2024 3:30 PM AERIAL GUNNER Afshin Chisholm MD LAB - BLOOD ORDERABLES Final Result Performing Organization Address [facility] de Phone Number [facility] [address] [place] [address], [facility] * Extra Green Top ([place] Heparin) Tube (07/11/2024 3:25 PM AERIAL GUNNER) Hold Specimen [facility] 07/11/2024 4:32 PM AERIAL GUNNER [facility] Blood VENOUS LINE / Unknown Venipuncture / Unknown 07/11/2024 3:25 PM AERIAL GUNNER 07/11/2024 3:30 PM AERIAL GUNNER Afshin Chisholm MD LAB - BLOOD ORDERABLES Final Result Performing Organization Address [facility] de Phone Number [facility] [address] [place] [address], [facility] documented in this encounter Visit [...] after each dose. $Given 07/11/2024 3:39 PM AERIAL GUNNER 2.5 mg diazepam (VALIUM) tablet 5 mg 5 mg, Oral, ONCE, On 07/11/24 at 1730, For 1 dose $Given 07/11/2024 5:19 PM AERIAL GUNNER 5 mg diphenhydrAMINE (BENADRYL) injection 25 mg 25 mg, Intravenous, ONCE, On 07/11/24 at 1530, For 1 dose $Given 07/11/2024 3:39 PM AERIAL GUNNER 25 mg ketorolac (TORADOL) injection 15 mg [...] to 2 minutes. $Given 07/11/2024 3:38 PM AERIAL GUNNER 15 mg ondansetron (ZOFRAN) injection 4 mg 4 mg, Intravenous, ONCE, Administer over 2-5 Minutes, On 07/11/24 at 1530, For 1 dose $Given 07/11/2024 3:38 PM AERIAL GUNNER 4 mg documented in this encounter Active and Recently Administered Medications Times are shown in AERIAL GUNNER. Scheduled Medication Order 07/09/2024 07/10/2024 07/11/2024 diazepam [...] RN) documented in this encounter Care Teams Dice Manager Relationship Specialty Start Date End Date Deepthi Mc [address] [place] [address] PCP - General Physician Composite Technician 06/15/23 documented as of this encounter
--- OUTSIDE RECORDS SUMMARY | 2024-08-16 19:19 | XMS_ITS | Clinical Summary ---
Author Organization [employer] [facility] Address [place], [place] [address] Care Team Providers Care Application Development Director Name Role Phone Deepthi Mc Primary Care [...] if needed. Active cloNIDine 0.1 mg/24 hr ([id number]) 0.1 mg/24 hr patchIndications:A nxiety,ETOH abuse APPLY [...] visit for cyclic vomiting; hospitalization at [facility] 05/03 (72 hr hold); 12/01 at [facility] History of Suicide Attempts: no Cannabis dependence, [...] Department Care Team Description 08/09/2024 2:00 PM DEEP FAT COOK FRY Office Visit [address] [address] Deepthi Mc PA Ear Problem (Check both ears); Medication Management (Discuss restarting Adderall and ativan) 08/09/2024 Travel 07/08/[address] [address] Deepthi Mc PA Medication Management (Adderall ) 06/29/[address] [address] Deepthi Mc PA Form (treatment letter) 06/29/[address] [address] Deepthi Mc PA Letter 06/24/[address] [address] Deepthi Mc PA Referral ([facility]) 06/15/[address] [address] Deepthi Mc PA Questions (reach out) 06/14/[address] [address] Deepthi Mc PA Questions (ER VISIT) 06/13/2024 Nurse Triage [address] [address] Deepthi Mc PA Vomiting 06/07/2024 2:20 PM DEEP FAT COOK FRY Office Visit [facility] [address] [place] [place] [address] Deepthi Mc PA Follow Up (Recheck from last week) 06/07/2024 Orders Only [facility] Scanner 1 scan: (1-Ord) INCOMING RECORDS-LABS, [facility], 05/14/2024 06/07/2024 Orders Only [facility] Scanner 1 scan: (1-Ord) INCOMING RECORDS-EKG, ][facility], 04/20/2024 06/07/2024 Orders Only [facility] Scanner 1 scan: (1-Ord) INCOMING RECORDS-LABS, [facility], 07/23/2023 06/07/2024 Orders Only [facility] Scanner 1 scan: (1-Ord) INCOMING RECORDS-CT, [facility], 08/15/2022 06/07/2024 Travel 06/02/2024 2:00 PM DEEP FAT COOK FRY Office Visit [facility] [address] [place] [address] Deepthi Mc PA Hospital F/U 06/02/2024 Travel 06/01/2024 Telephone [facility] [address] [place] [place] [address] Deepthi Mc PA Concerns 05/31/2024 Telephone [facility] [address] [place] [address] Deepthi Mc PA Referral 05/29/2024 Nurse Triage [facility] [address] [place] [address] Deepthi Mc PA Questions 05/24/2024 2:00 PM DEEP FAT COOK FRY Office Visit [facility] [address] [address] Deepthi Mc PA Follow Up (Sleep is a little better - ) 05/24/2024 12:30 PM DEEP FAT COOK FRY Office Visit [facility] [address] 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 Not on file Not on file Not on file Obstetrics History Last Filed Vital Signs Vital Sign Reading Time Taken Comments Blood Pressure 124/76 08/09/2024 2:09 PM DEEP FAT COOK FRY Pulse 89 08/09/2024 2:09 PM DEEP FAT COOK FRY Temperature 37.4 C (99.4 F) 12/30/2020 8:55 PM CDT Respiratory Rate 18 12/30/2020 8:55 PM CDT Oxygen Saturation 100% 02/13/2024 11:31 AM CDT Inhaled Oxygen Concentration - - Weight 106.1 kg (234 lb) 08/09/2024 2:09 PM DEEP FAT COOK FRY Height 182 cm (5' 11.65) 11/01/2022 2:24 PM CDT Body Mass Index 32.04 11/01/2022 2:24 PM CDT Plan of Treatment Upcoming Encounters Date Type Department Care Team (Late st Contact Info) Description 09/01/2024 2:00 PM DEEP FAT COOK FRY Office Visit [facility] [address] [place] [address] Alanna Erwin PA [address] [address] 09/06/2024 2:40 PM DEEP FAT COOK FRY Office Visit [facility] [address] [place] [address] Deepthi Mc PA [address] [place] [address] Health Maintenance Due Date Last Done Comments [...] Comments SCAN CORRESP-EKG RESULTS 06/07/2024 12:00 AM DEEP FAT COOK FRY SCAN CORRESP-LABORATORY RESULTS 06/07/2024 12:00 AM DEEP FAT COOK FRY SCAN CORRESP-LABORATORY RESULTS 06/07/2024 12:00 AM DEEP FAT COOK FRY SCAN CORRESP-IMAGING 06/07/2024 12:00 AM DEEP FAT COOK FRY PHOSPHORUS Routine 06/02/2024 3:03 PM DEEP FAT COOK FRY Alcoholism (HC) HEMOGLOBIN Routine 06/02/2024 3:03 PM DEEP FAT COOK FRY Alcoholism (HC) COMP METABOLIC PANEL Routine 05/24/2024 2:32 PM DEEP FAT COOK FRY Hyponatremia Hypokalemia Alcoholism (HC) COMP METABOLIC PANEL Routine 05/17/2024 3:03 PM CDT Anxiety Nausea and vomiting, unspecified vomiting type Insomnia, idiopathic Alcoholism (HC) ETOH abuse Hypokalemia Hyponatremia ANTI HIV 1/2 Routine 10/15/2013 9:28 AM CDT Diarrhea GERD (gastroesophageal reflux disease) Weight loss from Last 3 Months or Most Recently Relevant to Health Maintenance Results * SCAN CORRESP-LABORATORY RESULTS (06/07/2024 12:00 AM DEEP FAT COOK FRY) Only the most recent of2 resultswithin the time period is included. us Scanner OTHER Final Result * SCAN CORRESP-EKG RESULTS (06/07/2024 12:00 AM DEEP FAT COOK FRY) us Scanner OTHER Final Result * SCAN CORRESP-IMAGING (06/07/2024 12:00 AM DEEP FAT COOK FRY) Anatomical Region Laterality Modality Other us Scanner OTHER Final Result * (ABNORMAL) HEMOGLOBIN (06/02/2024 3:03 PM DEEP FAT COOK FRY) HEMOGLOBIN 9.8(L) 13.2 - 17.1 g/dL [facility] [place] Blood BLOOD SPECIMEN / Unknown 06/02/2024 3:03 PM DEEP FAT COOK FRY 06/02/2024 3:04 PM DEEP FAT COOK FRY us Deepthi GUERRERO HEMATOLOGY Final R esult [facility] [address] [place] [address], [facility] [address] [place] [address] * PHOSPHORUS (06/02/2024 3:03 PM DEEP FAT COOK FRY) [facility] PHOSPHATE ( PHOSPHORUS) 3.7 2.5 - 4.5 mg/dL [facility] [place] Blood BLOOD SPECIMEN / Unknown 06/02/2024 3:03 PM DEEP FAT COOK FRY 06/02/2024 3:04 PM DEEP FAT COOK FRY us Deepthi GUERRERO CHEMISTRY Final R esult [facility] [address] [place] [address], [facility] [address] [place] [address] * COMP METABOLIC PANEL (05/24/2024 2:32 PM DEEP FAT COOK FRY) Only the most recent of2 resultswithin the time period is included. [facility] GLUCOSE 82 65 - 99 mg/dL [facility] Agust[facility] Comment: Fasting reference interval UREA [...] BLOOD SPECIMEN / Unknown 05/24/2024 2:32 PM DEEP FAT COOK FRY 05/24/2024 2:32 PM DEEP FAT COOK FRY us Deepthi GUERRERO CHEMISTRY Final R esult [facility] [address] [place] [address], [facility] [address] [place] [address] * ANTI HIV 1/2 (10/15/2013 9:28 AM CDT) Pathologist [facility] ANTI HIV 1/2 Non-reacti ve [facility] Blood specimen (specimen) BLOOD SPECIMEN / Unknown 10/15/2013 9:28 AM CDT 10/15/2013 9:13 AM CDT us Luis Jarrett MD SEND OUTS Final Res ult [facility] INTERNAL ZIP [address] [place] [address] from Last 3 Months or Most Recently Relevant to Health Maintenance Insurance [facility] * Guarantor: KARELY SAPP Account Type Relation to Patient Date of Phone Billing Address Personal/Family Mother [address] [place] [id number] Advance Directives * Full Code (Latest Code Status on File) Date Activated Date Inactivated Comments 05/15/2014 4:32 PM 05/18/2014 8:52 PM * Full Code Date Activated Date Inactivated Comments 05/02/2014 7:01 PM 05/07/2014 1:56 PM Care Teams Application Development Director Relationship Specialty Start Date End Date Deepthi Mc PA [address] [place] [address] PCP - General Family Practice 03/04/11
--- OUTSIDE RECORDS SUMMARY | 2024-08-16 19:19 | XMS_ITS ---
Author Organization [facility] Address [address] [place] [address] Care Team Providers Care Sales Technician Home Theater Name Role Phone Unavailable Unavailable Unavailable Surgery Details Not on file Complications Check Surgery Details section. Procedure Estimated Blood Loss Check Surgery Details section. Procedure Findings Check Surgery Details section. Procedure Specimens Taken Check Surgery Details section.
--- OUTSIDE RECORDS SUMMARY | 2024-08-16 19:19 | XMS_ITS | Referral Summary ---
Author Organization [facility] Address [address] [place] [address] Care Team Providers Care Configuration Management Architect Name Role Phone Elsewhere, Pcp Primary Care Provider Unavailabl e Source Comments Patient records contain information from all sites at [facility]. For routine questions regarding patient records, call [phone] during business hours, M-F 8:00 AM - 5:00 PM Central Time. Record requests for emergency care only can be directed to [phone] at any time.[facility] Allergies Active Allergy Reactions Criticality Noted [...] history of withdrawal seizures or withdrawal complications. [facility] admission on 03/26/20 for alcohol withdrawal and [...] ER visit for cyclic vomiting; hospitalization at [facility] 05/03 (72 hr hold); 12/01 at [facility] History of Suicide Attempts: no Asthma [...] e alcohol) 750 ml straight Vodka Daily [employer] Answer Date Recorded In the past 12 months has e [employer], [employer], oil, or water [employer] threatened to shut off services in your [...] your living situation today? 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 LAB BLOOD ADD-ON Final Result [facility] [address] [place] [address], [facility] [address] [place] [address] from Last 3 Months or Most Recently Relevant to Health Maintenance Insurance [facility] [place] [address] Advance Directives For more information, please contact: [phone] * Full Code (Latest Code Status on [...] Due to: Not medically appropriate Care Teams Configuration Management Architect Relationship Specialty Start Date End Date Elsewhere, Pcp PCP - General Internal Medicine 03/26/24
--- OUTSIDE RECORDS SUMMARY | 2024-08-16 19:19 | XMS_ITS | Encounter Summary ---
Author Organization [place] Address [address] [place] [address]. [place] [address] Care Team Providers Care Air Quality Manager Name Role Phone Deepthi Mc Primary Care Provider [phone] Reason for Visit * Reason Comments Advance Care Planning Encounter Details Date Type Department Care Team (Latest Contact Info) Description 07/05/2024 Documentation Only [facility] [address] [facility] [address] [place] [id number] Christine Ugarte Advance Care Planning Social History [...] on filedocumented in this encounter Care Teams Air Quality Manager Relationship Specialty Start Date End Date Deepthi Mc [address] [place] [address] PCP - General Physician Roller Hand 06/15/23 documented as of this encounter
--- OUTSIDE RECORDS SUMMARY | 2024-08-16 19:19 | XMS_ITS | Encounter Summary ---
Author Organization [facility] Address [facility] [place] [address] Care Team Providers Care Applied Behavior Science Specialist Name Role Phone Rajan Mcpeace Wilkins Primary Care Provider [phone] Reason for Visit * Reason Onset Date Comments MH/CD Inpatient 12/08/2013 Encounter Details Date Type Department Care Team ([facility] st Contact Info) Description 12/08/2013 Telephone [facility] Behavioral Health Intake [address] [place] [id number] Generic, Behavioral Intake, MH/CD Inpatient Social History [...] 12/08/2013 11:23 AM CDT S: Katarzyna from [facility] calling requesting Psych bed for pt. # [phone] B: Pt was BIB mother to [facility] 12/06/13 for self induced vomiting; OCD [...] have not pursued commitment at this time. [facility] will be unable to take him at this time. If [facility], I invited Katarzyna to call back and check on bed availability. documented in this encounter Plan of Treatment Not on file documented as of this encounter Visit Diagnoses Not on filedocumented in this encounter Additional Health Concerns Infection Onset Date Last Indicated Resolved Time Rule Out C-difficile 08/13/2023 08/13/2023 024 8:43 AM [employer]IC documented as of this encounter Care Teams Applied Behavior Science Specialist Relationship Specialty Start Date End Date Deepthi Mc [address] [place] [address] PCP - General Physician School Admissions Representative 06/15/23 documented as of this encounter
[2024-08-16] MEDS: diphenhydrAMINE 50 MG/ML inj IM (19:27)
[2024-08-16] MEDS: ONDANSETRON 2 MG/ML inj 4 MG IM (19:29)
[2024-08-16] MEDS: METOCLOPRAMIDE HCL 5 MG/ML INJ 10 MG IM (19:29)
[2024-08-16 20:26] LABS: Appearance Urine Slightly Cloudy (Clear); Bilirubin Urine Negative (Negative); Blood Urine Negative (Negative); Color Urine Yellow (Yellow); Glucose Urine Negative (Negative); Ketones Urine 1+ (Negative); Leukocyte Esterase Urine Negative (Negative); Nitrite Urine Negative (Negative); Protein Urine 2+ (Negative); Urobilinogen Urine 0.2 (0.2-1.0); pH Urine 8.5 (5.0-8.5)
[2024-08-16 20:35] LABS: Amphetamine Screen Urine POSITIVE (Negative); Barbiturate Screen Urine Negative (Negative); Benzodiazepines Screen Urine POSITIVE (Negative); Cannabinoid Screen Urine POSITIVE (Negative); Cocaine Screen Urine Negative (Negative); Methadone Screen Urine Negative (Negative); Methamphetamines Screen Urine Negative (Negative); Opiate Screen Urine Negative (Negative); Oxycodone Screen Urine Negative (Negative); Phencyclidine Screen Urine Negative (Negative); Tricyclic Antidepressant Urine Negative (Negative)
[2024-08-16 20:43] LABS: RBC Urine 0-2 (0-2); WBC Urine 0-2 (0-5)
[2024-08-16] MEDS: KETOROLAC 30 MG/ML inj IM (20:53)
[2024-08-16] MEDS: LORazepam 2 MG/ML inj 1 MG IM (22:00)
== END 2024-08-16 22:34 | disposition home or self-care (01) ==
PROVIDERS: Emergency Provider Family Medicine; PCP Physician Assistant Medical
DX: K21.9 Gastro-esophageal reflux disease without esophagitis (principal); R11.15 Cyclical vomiting syndrome unrelated to migraine
CPT/HCPCS: 80053; 80306; 81001; 85025; 96372; 99284; J1200; J1885; J2060; J2405; J2765

== ENCOUNTER 2024-09-21 19:05 | Emergency (ER) | payer BC, SELFPAY ==
--- NOTE | 2024-09-21 19:07 | ED.GENADULT ---
HPI - General Adult General Time Seen by Provider: 19:07 Date Seen: 09/21/24 Chief complaint: Nausea/Vomiting Stated complaint: vomiting Time Seen by Provider: 09/21/24 19:07 Source: patient, RN notes reviewed and old records reviewed Mode of arrival: ambulatory Limitations: no limitations History of Present Illness HPI narrative: 28-year-old male with history of cannabis hyperemesis and polysubstance abuse who presents today with vomiting. Patient has history of her current emergency department visits for nausea vomiting. Current episode started early this morning, says use marijuana last last week. Some lower abdominal pain, denies diarrhea, says he has been drinking Gatorade today. Denies chest pain, shortness of breath, fever or chills. Related Data Home Medications ?Medication ?Instructions ?Recorded ?Confirmed desvenlafaxine succinate 50 mg 50 mg PO DAILY 02/13/22 06/13/24 tablet,extended release 24 hr hydroxyzine HCl 25 mg tablet 25 - 50 mg PO Q6H PRN 02/13/22 06/13/24 lisinopril 10 mg tablet 10 mg PO DAILY 02/13/22 06/13/24 lorazepam 0.5 mg tablet 0.5 mg PO DAILY PRN 02/13/22 06/13/24 ondansetron 4 mg disintegrating 4 mg PO Q8H PRN 02/13/22 06/13/24 tablet prochlorperazine 25 mg rectal 25 mg MO Q12H PRN 02/13/22 06/13/24 suppository trazodone 50 mg tablet 25 mg PO HS PRN 08/14/22 06/13/24 clonidine 0.1 mg/24 hr weekly 1 patch topical .weekly 05/12/24 06/13/24 transdermal patch dextroamphetamine-amphetamine 10 5 - 10 mg PO DAILY 05/12/24 06/13/24 mg tablet (Adderall) dextroamphetamine-amphetamine ER 20 mg PO DAILY 05/12/24 06/13/24 20 mg 24hr capsule,extend release (Adderall XR) gabapentin 600 mg tablet 600 mg PO HS 05/12/24 06/13/24 melatonin 3 mg tablet 3 mg PO HS PRN 05/12/24 06/13/24 naltrexone 50 mg tablet 50 mg PO DAILY 05/12/24 06/13/24 Previous Rx's ?Medication ?Instructions ?Recorded potassium bicarbonate-citric acid 25 meq PO BID #4 ea 05/13/24 25 mEq effervescent tablet sodium chloride 1,000 mg soluble 1,000 mg PO TID #10 tabs 05/13/24 tablet promethazine 50 mg rectal 50 mg MO Q6H PRN #12 ea 09/21/24 suppository Allergies Allergy/AdvReac Type Severity Reaction Status Date / Time haloperidol (From Haldol) Allergy Verified 08/16/24 18:24 olanzapine (From Zyprexa) AdvReac Intermediate Cramping Verified 08/16/24 18:24 of the Muscles [facility] Medical History Cannabinoid hyperemesis syndrome ?R11.2 - Nausea with vomiting, unspecified (ICD-10) ?F12.90 - Cannabis use, unspecified, uncomplicated (ICD-10) Cannabinosis ?J66.2 - Cannabinosis (ICD-10) Severe anxiety with panic ?F41.0 - Panic disorder [episodic paroxysmal anxiety] (ICD-10) Normal colonoscopy Normal esophagogastroduodenoscopy (EGD) ?Z01.89 - Encounter for other specified special examinations (ICD-10) Cyclical vomiting ?R11.15 - Cyclical vomiting syndrome unrelated to migraine (ICD-10) Anxiety ?F41.9 - Anxiety disorder, unspecified (ICD-10) Substance abuse ?F19.10 - Other psychoactive substance abuse, uncomplicated (ICD-10) Surgical History History of myringotomy ?Z98.890 - Other specified postprocedural states (ICD-10) Family History Father Alcohol dependence Drug dependence Suicidal behavior with attempted self-injury Social History Narrative: Patient lives with his mother and stepfather; 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 His mother is healthcare power of toll testboard worker and code status is full. History of alcohol and cannabis abuse. Current cigarette smoking. What is your current living situation?: declined to answer Problems where you live: declined to answer In the past 12 months, utilities in danger of being shut off: declined to answer In past 12 months, lack of transportation kept you from medical appts, meetings, work, or getting things needed for daily living: declined to answer In the past 12 mos, have been you worried that your food would run out before you had money to buy more?: declined to answer In the past 12 mos, the food you bought just didn't last and you didn't have money to buy more?: declined to answer Highest level of school completed/degree received: Associate degree: occupational, technical, vocational program Smoking Status: Current every day smoker What tobacco products do you use: cigarettes Smoking packs per day: 0.5 Smoking cigarettes per day: 10.0 Years smoked: 10 Smoking pack-years: 5.00 Smoking quit date/years: >15 years ago Do you use any of these nicotine containing products: E-Cigarettes and Vaping Products Second hand tobacco smoke exposure: No How often do you have a drink containing alcohol: 4 or more times a week Alcohol type: hard liquor How many standard drinks containing alcohol do you have on a typical day: 5 or 6 How often do you have six or more drinks on one occasion: Daily or almost daily AUDIT-C Alcohol total score: 10 Non-prescribed substance use: marijuana (any form) Caffeine: Yes How often does anyone, including family, friends and others, physically hurt you: decline to answer How often does anyone, including family, friends and others, insult or talk down to you: decline to answer How often does anyone, including family, friends and others, threaten you with harm: decline to answer How often does anyone, including family, friends and others, scream or curse at you: decline to answer service: No Health Related Social Needs: unsheltered homelessness (Z59.02) Exam Narrative: Exam Narrative: General: Well-developed and well-nourished, no acute distress, psychomotor agitation Head: Atraumatic and normocephalic Eyes: Pupils are equal reactive, extraocular motions intact, conjunctiva clear ENT: External nose and ears are normal, posterior pharynx without erythema or exudate Neck: No midline cervical tenderness, full spontaneous range of motion the neck, trachea midline, no adenopathy Heart: Tachycardic but regular Lungs: Clear to auscultation bilaterally without wheezes or crackles Abdomen: Soft, nontender, nondistended with active bowel sounds Musculoskeletal: No tenderness, deformity, or edema Neurologic: Awake, alert, and oriented x3, no gross focal neurologic deficits, cranial nerves intact as tested Psych: Mood and affect are appropriate Skin: No rashes Const: Vital Signs, click to edit/add: Vital Signs - 24 hr 09/21/24 19:08 09/21/24 19:17 09/21/24 21:11 Temperature 97.0 F L Pulse Rate [Left P ulse Oximeter] 120 H 112 H Respiratory Rate 22 24 Blood Pressure 183/87 H Blood Pressure [Ri ght Upper Arm] 186/124 H 170/100 H Pulse Oximetry 100 100 Oxygen Delivery Me thod Room Air Room Air Course Course ED Course: Reviewed prior office visit with primary care from September 06 which is follow-up for anxiety, was prescribed Ativan as needed, started on Cymbalta, also on gabapentin 3 times a day for alcohol use disorder. Reviewed most recent emergency department visit from August 16 which was for vomiting, was to get droperidol and Protonix but was instead given Ativan IM. Note that although patient has allergy does Zyprexa on his medication list, he received this at [facility] on July 13 with no reaction. Patient presents today with vomiting, numerous emergency department visits a various hospitals for vomiting thought to be related to cannabis hyperemesis, also anxiety. Patient requests ?Zyprexa, Toradol, Reglan, and droperidol all IM. Says this is what he ?usually gets. ? I reviewed prior records from [facility] as well as [facility] and patient has never been given all these medications at the same visit. Additionally, given the class overlap between Zyprexa droperidol, would not give the simultaneously. Zyprexa and Toradol ordered. Reevaluation(s) Time of Reevaluation #1: 19:56 Reevaluation #1: Labs ordered and independently interpreted by me with with normal magnesium, basic panel with anion gap as well as mild hypochloremia, sodium and potassium were normal. Time of Reevaluation #2: 21:12 Reevaluation #2: Patient recheck. He is feeling better although still somewhat nauseated. On Phenergan IM is ordered and will continue to monitor. Time of Reevaluation #3: 21:46 Reevaluation #3: Patient with no further vomiting but says he does not feel very well still. Still quite tremulous. Ativan IM is ordered and plan for discharge. Vital Signs Vital signs: Initial Vital Signs Temperature 97.0 F L 09/21/24 19:08 Temperature Source Temporal Artery Scan 09/21/24 19:08 Pulse Rate 120 H 09/21/24 19:08 Pulse Rhythm Regular 09/21/24 19:08 Respiratory Rate 22 09/21/24 19:08 Blood Pressure 186/124 H 09/21/24 19:08 Blood Pressure Mean 144 H 09/21/24 19:08 Blood Pressure Position Sitting 09/21/24 19:08 Pulse Oximetry 100 09/21/24 19:08 Oxygen Delivery Method Room Air 09/21/24 19:08 Vital Signs Temperature 97.0 F L 09/21/24 19:08 Pulse Rate 120 H 09/21/24 19:08 Respiratory Rate 22 09/21/24 19:08 Blood Pressure 186/124 H 09/21/24 19:08 Pulse Oximetry 100 09/21/24 19:08 Oxygen Delivery Method Room Air 09/21/24 19:08 Temperature 97.0 F L 09/21/24 19:08 Pulse Rate 112 H 09/21/24 21:11 Respiratory Rate 09/21/24 21:11 Blood Pressure 170/100 H 09/21/24 21:11 Pulse Oximetry 100 09/21/24 21:11 Oxygen Delivery Method Room Air 09/21/24 21:11 Medications Administered Medications: Discontinued Medications Generic Name Dose Route Start Last Admin Trade Name Abimaelq PRN Reason Stop Dose Admin Diphenhydramine HCl 50 mg 09/21/24 19:46 09/21/24 19:53 Diphenhydramine 50 Mg/Ml Inj IM 09/21/24 19:47 50 mg ONCE ONE Administration Ketorolac Tromethamine 30 mg 09/21/24 19:25 09/21/24 19:36 Ketorolac 30 Mg/Ml Inj IM 09/21/24 19:26 30 mg ONCE ONE Administration Olanzapine 10 mg 09/21/24 19:25 09/21/24 19:34 Olanzapine 5 Mg/Ml Inj IM 09/21/24 19:26 10 mg ONCE ONE Administration Promethazine HCl 25 mg 09/21/24 21:12 09/21/24 21:18 Promethazine 25 Mg/Ml Inj IM 09/21/24 21:13 25 mg ONCE ONE Administration Medical Decision Making Lab Data Labs: Lab Results 09/21/24 Range/Units 19:25 Sodium 136 (135-149) mmol/L Potassium 3.9 (3.6-5.1) mmol/L Chloride 95 L (96-114) mmol/L Carbon Dioxide 24 (20-32) mmol/L Anion Gap 17 H (7-15) mEq/L BUN 20 (5-24) mg/dL Creatinine 0.8 (0.5-1.5) mg/dL Estimated Creat Clear 150.89 Estimated GFR 124 ml/min Glucose 120 H (60-115) mg/dL Calcium 10.0 (8.4-10.6) mg/dL Magnesium 1.5 (1.5-2.6) mg/dL Discharge Plan Discharge Clinical Impression: Acute anxiety, Cyclical vomiting, Psychomotor agitation Patient Disposition: Home, Self-Care Condition: Stable Instructions: Acute Nausea and Vomiting (DC), Anxiety (ED) Additional Instructions: Take Tylenol and ibuprofen as needed for pain Advance diet as tolerated Activity Level: No Restrictions Discharge Diet: Regular Prescriptions: New promethazine 50 mg suppository 50 mg MO Q6H PRNQty: 12 0RF No Action lorazepam 0.5 mg tablet 0.5 mg PO DAILY PRN prochlorperazine 25 mg suppository 25 mg MO Q12H PRN lisinopril 10 mg tablet 10 mg PO DAILY hydroxyzine HCl 25 mg tablet 25 - 50 mg PO Q6H PRN ondansetron 4 mg tablet,disintegrating 4 mg PO Q8H PRN Patient Comments: DISSOLVE 1 TABLET ON THE TONGUE EVERY 8 HOURS NEEDED FOR NAUSEA OR VOMITING desvenlafaxine succinate 50 mg tablet extended release 24 hr 50 mg PO DAILY trazodone 50 mg tablet 25 mg PO HS PRN clonidine 0.1 mg/24 hr patch weekly 1 patch topical .weekly melatonin 3 mg tablet 3 mg PO HS PRN dextroamphetamine-amphetamine [Adderall XR] 20 mg capsule,extended release 24hr 20 mg PO DAILY dextroamphetamine-amphetamine [Adderall] 10 mg tablet 5 - 10 mg PO DAILY gabapentin 600 mg tablet 600 mg PO HS naltrexone 50 mg tablet 50 mg PO DAILY sodium chloride 1,000 mg tablet,soluble 1,000 mg PO TID Qty: 10 0RF potassium bicarb-citric acid 25 mEq tablet, effervescent 25 meq PO BID Qty: 4 0RF Follow Up/Referrals: Deepthi Mc PA-C [Primary Care Provider] - Stand Alone Forms: [employer] Info Instructions
--- OUTSIDE RECORDS SUMMARY | 2024-09-21 19:07 | XMS_ITS ---
Author Organization Unknown Address [address] [place], [place] [id number] Phone Care Team Providers Care Barrel Centerer Name Role Phone CLAIRE TEJADA Attending Unavailable [...] Code Sys tem Cyclical vomiting syndrome 10/28/2023 [id number] S NOMED-CT Personal Care Team Section Performer Name Performer Role Active Date Inactive Da te
--- OUTSIDE RECORDS SUMMARY | 2024-09-21 19:07 | XMS_ITS | Clinical Summary ---
Author Organization [facility] Address [address] [place] [id number] Care Team Providers Care Special Event Assistant Name Role Phone Jesusita Deepthi Wilkins Primary Care Provider [phone] Allergies Active Allergy Reactions Criticality Noted Date [...] history of withdrawal seizures or withdrawal complications. [facility] admission on 03/26/20 for alcohol withdrawal and discharged on 03/28/20. Patient is interested in quitting. Has previously tried clonidine and naltrexone. Patient with history of alcohol abuse. No history of withdrawal seizures or withdrawal complications. [facility] admission on 03/26/20 for alcohol withdrawal and discharged on 03/28/20. Patient is interested in quitting. Has previously tried clonidine and naltrexone. Patient with history of alcohol abuse. No history of withdrawal seizures or withdrawal complications. [facility] admission on 03/26/20 for alcohol withdrawal and discharged on 03/28/20. Patient is interested in quitting. Has previously tried clonidine and naltrexone. Cyclical vomiting 04/04/2016 Social anxiety disorder 02/26/2016 PTSD (post-traumatic stress disorder) 05/16/2014 Overview (07/15/2021): Under the care of Dr. Rafat Falcon for mental health care. [facility] . Initial intake 12/10/12 [...] ER visit for cyclic vomiting; hospitalization at [facility] 05/03 (72 hr hold); 12/01 at [facility] History of Suicide Attempts: no Under the care of Dr. Rafat Falcon for mental health care. [facility] . Initial intake 12/10/12 [...] ER visit for cyclic vomiting; hospitalization at [facility] 05/03 (72 hr hold); 12/01 at [facility] History of Suicide Attempts: no Under the care of Dr. Rafat Falcon for mental health care. [facility] . Initial intake 12/10/12 [...] ER visit for cyclic vomiting; hospitalization at [facility] 05/03 (72 hr hold); 12/01 at [facility] History of Suicide Attempts: no Under the care of Dr. Rafat Falcon for mental health care. [facility] . Initial intake 12/10/12 [...] ER visit for cyclic vomiting; hospitalization at [facility] 05/03 (72 hr hold); 12/01 at [facility] History of Suicide Attempts: no Under the care of Dr. Rafat Falcon for mental health care. [facility] . Initial intake 12/10/12 [...] ER visit for cyclic vomiting; hospitalization at [facility] 05/03 (72 hr hold); 12/01 at [facility] History of Suicide Attempts: no Under the care of Dr. Rafat Falcon for mental health care. [facility] . Initial intake 12/10/12 [...] ER visit for cyclic vomiting; hospitalization at [facility] 05/03 (72 hr hold); 12/01 at [facility] History of Suicide Attempts: no Under the care of Dr. Rafat Falcon for mental health care. [facility] . Initial intake 12/10/12 [...] ER visit for cyclic vomiting; hospitalization at [facility] 05/03 (72 hr hold); 12/01 at [facility] History of Suicide Attempts: [...] Department Care Team Description 07/12/2024 10:10 PM PEDIATRIC ASSOCIATE - 07/13/2024 6:40 AM [facility] Emergency Department [facility] [place] [address] Jack Cornejo MD Mott, Sarah E, MD Nausea and vomiting, unspecified vomiting type Discharge Disposition: Home or Self Care 07/12/2024 Documentation Only [facility] [address] [place] [address] Christine Ugarte Advance Care Planning 07/11/2024 3:18 PM PEDIATRIC ASSOCIATE - 07/11/2024 6:55 PM PEDIATRIC ASSOCIATE Emergency [facility] Emergency Department [address] [place] [address] Clinton Franklin DO Cyclic vomiting syndrome Discharge Disposition: Home or Self Care 07/11/2024 Travel 07/05/2024 Documentation Only [facility] [address] [place] [address] Christine Ugarte Advance Care Planning 06/27/2024 8:29 AM PEDIATRIC ASSOCIATE - 06/27/2024 11:56 AM PEDIATRIC ASSOCIATE Emergency [facility] Emergency Department [address] [place] [address] Ronda Ugarte MD Anxiety reaction Discharge Disposition: Home or Self Care 06/27/2024 Travel 06/23/2024 3:12 PM PEDIATRIC ASSOCIATE - 06/26/2024 10:15 AM [facility] [[email or web address]] Emergency [facility] [address] [facility] [place] [address] Yamil Espinosa MD Kelly, Ryan, MD Saadaeijahromi, Hannaneh, MD Tachycardia, unspecified (Primary Dx); Hyponatremia; Nausea and vomiting, unspecified vomiting type Discharge Disposition: IRTS - Intensive Residential Treatment Program 06/23/2024 Travel from Last 3 Months Social History [...] in an abandoned building, in an overnight longterm, or couch-surfing.) Yes 06/23/2024 Are you worried [...] Comments Blood Pressure 122/60 07/13/2024 6:16 AM PEDIATRIC ASSOCIATE Pulse 117 07/12/2024 10:01 PM PEDIATRIC ASSOCIATE Temperature 36.7 C (98.1 F) 07/12/2024 10:01 PM PEDIATRIC ASSOCIATE Respiratory Rate 30 07/12/2024 10:01 PM PEDIATRIC ASSOCIATE Oxygen Saturation 100% 07/12/2024 10:01 PM PEDIATRIC ASSOCIATE Inhaled Oxygen Concentration - - Weight 98.9 kg (218 lb) 07/12/2024 10:01 PM PEDIATRIC ASSOCIATE Height 182.9 cm (6') 07/11/2024 3:12 PM PEDIATRIC ASSOCIATE Body Mass Index 29.57 07/11/2024 3:12 PM PEDIATRIC ASSOCIATE Plan of Treatment Health Maintenance Due Date Last Done Comments ANNUAL REVIEW OF HM ORDERS 1995 ASTHMA ACTION PLAN 1995 ASTHMA CONTROL TEST 1995 DEPRESSION ACTION PLAN 1995 PHQ-9 1995 YEARLY PREVENTIVE VISIT 10/02/1998 HEPATITIS C SCREENING 10/02/2013 Pneumococcal Vaccine: Pediatrics [...] 03/20/2030 03/20/2020, 03/20/2020, 01/27/2008, Additional history exists ZOSTER IMMUNIZATION (1 of 2) 10/02/2045 HEPATITIS B IMMUNIZATION Completed 997, 08/16/1996, 04/02/1996, Additional history exists HIV SCREENING Completed 10/15/2013 HPV IMMUNIZATION Aged Out No longer e ligible based on patient's age to complete this topic MENINGITIS IMMUNIZATION Aged Out No l onger eligible based on patient's age to complete this topic Procedures Procedure Name Priority Date/Time Associated Diagnosis Comments ROUTINE UA WITH MICROSCOPIC REFLEX TO CULTURE STAT 07/13/2024 4:26 AM PEDIATRIC ASSOCIATE CBC WITH PLATELETS & DIFFERENTIAL STAT 07/13/2024 1:19 AM PEDIATRIC ASSOCIATE CBC WITH PLATELETS AND DIFFERENTIAL STAT 07/13/2024 1:19 AM PEDIATRIC ASSOCIATE LIPASE STAT 07/13/2024 1:19 AM PEDIATRIC ASSOCIATE HEPATIC FUNCTION PANEL STAT 1:19 AM PEDIATRIC ASSOCIATE BASIC METABOLIC PANEL STAT 07/13/2024 1:19 AM PEDIATRIC ASSOCIATE CBC WITH PLATELETS & DIFFERENTIAL STAT 07/11/2024 3:25 PM PEDIATRIC ASSOCIATE RBC AND PLATELET MORPHOLOGY STAT 07/11/2024 3:25 PM PEDIATRIC ASSOCIATE CBC WITH PLATELETS AND DIFFERENTIAL STAT 07/11/2024 3:25 PM PEDIATRIC ASSOCIATE LIPASE STAT 07/11/2024 3:25 PM PEDIATRIC ASSOCIATE HEPATIC FUNCTION PANEL STAT 3:25 PM PEDIATRIC ASSOCIATE BASIC METABOLIC PANEL STAT 07/11/2024 3:25 PM PEDIATRIC ASSOCIATE EXTRA PURPLE TOP TUBE STAT 07/11/2024 3:25 PM PEDIATRIC ASSOCIATE EXTRA GREEN TOP (LITHIUM HEPARIN) TUBE STAT 07/11/2024 3:25 PM PEDIATRIC ASSOCIATE EXTRA TUBE STAT 07/11/2024 3:25 PM PEDIATRIC ASSOCIATE CBC WITH PLATELETS & DIFFERENTIAL STAT 06/27/2024 8:36 AM PEDIATRIC ASSOCIATE MAGNESIUM STAT 06/27/2024 8:36 AM PEDIATRIC ASSOCIATE CBC WITH PLATELETS AND DIFFERENTIAL STAT 06/27/2024 8:36 AM PEDIATRIC ASSOCIATE ETHYL ALCOHOL LEVEL STAT 06/27/2024 8 :36 AM PEDIATRIC ASSOCIATE LIPASE STAT 06/27/2024 8:36 AM PEDIATRIC ASSOCIATE HEPATIC FUNCTION PANEL STAT 8:36 AM PEDIATRIC ASSOCIATE BASIC METABOLIC PANEL STAT 06/27/2024 8:36 AM PEDIATRIC ASSOCIATE EXTRA PURPLE TOP TUBE STAT 06/27/2024 8:36 AM PEDIATRIC ASSOCIATE EXTRA GREEN TOP (LITHIUM HEPARIN) TUBE STAT 06/27/2024 8:36 AM PEDIATRIC ASSOCIATE EXTRA TUBE STAT 06/27/2024 8:36 AM PEDIATRIC ASSOCIATE EXTRA PURPLE TOP TUBE Routine 06/25/2024 8:40 AM PEDIATRIC ASSOCIATE EXTRA TUBE Routine 06/25/2024 8:40 AM PEDIATRIC ASSOCIATE BASIC METABOLIC PANEL Routine 06/25/2024 8:40 AM PEDIATRIC ASSOCIATE DRUG CONFIRMATION PANEL URINE WITH CREAT STAT 06/24/2024 5:29 PM PEDIATRIC ASSOCIATE URINE CREATININE FOR DRUG SCREEN PANEL STAT 06/24/2024 5:29 PM PEDIATRIC ASSOCIATE URINE DRUG CONFIRMATION PANEL STAT 06/24/2024 5:29 PM PEDIATRIC ASSOCIATE URINE DRUG SCREEN STAT 06/24/2024 5:2 8 PM PEDIATRIC ASSOCIATE URINE CREATININE FOR DRUG SCREEN PANEL STAT 06/24/2024 5:28 PM PEDIATRIC ASSOCIATE THC CONFIRMATION QUANTITATIVE URINE STAT 06/24/2024 5:28 PM PEDIATRIC ASSOCIATE BENZODIAZEPINES, URINE, QUANTITATIVE STAT 06/24/2024 5:28 PM PEDIATRIC ASSOCIATE URINE DRUG SCREEN PANEL STAT 06/24/20 5:28 PM PEDIATRIC ASSOCIATE PHOSPHATIDYLETHANOL (PETH), WHOLE BLOOD Routine 06/24/2024 8:14 AM PEDIATRIC ASSOCIATE CBC WITH PLATELETS Routine 06/24/2024 8: 14 AM PEDIATRIC ASSOCIATE COMPREHENSIVE METABOLIC PANEL Routine 06/24/2024 8:14 AM PEDIATRIC ASSOCIATE EXTRA PURPLE TOP TUBE STAT 06/23/2024 6:19 PM PEDIATRIC ASSOCIATE EXTRA TUBE STAT 06/23/2024 6:19 PM PEDIATRIC ASSOCIATE LACTIC ACID WHOLE BLOOD STAT 06/23/20 24 6:19 PM PEDIATRIC ASSOCIATE ABO/RH TYPE AND SCREEN STAT 3:49 PM PEDIATRIC ASSOCIATE TYPE AND SCREEN, ADULT STAT 3:49 PM PEDIATRIC ASSOCIATE LACTIC ACID WHOLE BLOOD WITH 1X REPEAT IN 2 HR WHEN >2 STAT 06/23/2024 3:49 PM PEDIATRIC ASSOCIATE EKG 12-LEAD, TRACING ONLY STAT 2023 3:46 PM PEDIATRIC ASSOCIATE CBC WITH PLATELETS & DIFFERENTIAL STAT 06/23/2024 3:42 PM PEDIATRIC ASSOCIATE PHOSPHORUS Add-On 06/23/2024 3:42 PM PEDIATRIC ASSOCIATE MAGNESIUM Add-On 06/23/2024 3:42 PM PEDIATRIC ASSOCIATE PHOSPHORUS STAT 06/23/2024 3:42 PM PEDIATRIC ASSOCIATE CBC WITH PLATELETS AND DIFFERENTIAL STAT 06/23/2024 3:42 PM PEDIATRIC ASSOCIATE MAGNESIUM STAT 06/23/2024 3:42 PM PEDIATRIC ASSOCIATE INR STAT 06/23/2024 3:42 PM PEDIATRIC ASSOCIATE COMPREHENSIVE METABOLIC PANEL STAT 06/23/2024 3:42 PM PEDIATRIC ASSOCIATE ETHYL ALCOHOL LEVEL STAT 06/23/2024 3 :42 PM PEDIATRIC ASSOCIATE EXTRA PURPLE TOP TUBE STAT 06/23/2024 3:42 PM PEDIATRIC ASSOCIATE EXTRA GREEN TOP (LITHIUM HEPARIN) TUBE STAT 06/23/2024 3:42 PM PEDIATRIC ASSOCIATE EXTRA RED TOP TUBE STAT 06/23/2024 3: 42 PM PEDIATRIC ASSOCIATE EXTRA BLUE TOP TUBE STAT 06/23/2024 3 :42 PM PEDIATRIC ASSOCIATE EXTRA TUBE STAT 06/23/2024 3:42 PM PEDIATRIC ASSOCIATE from Last 3 Months Results * (ABNORMAL) UA with Microscopic reflex to Culture (07/13/2024 4:26 AM PEDIATRIC ASSOCIATE) Color Urine Light Yellow Colorless, Straw, Light Yellow, Yellow 07/13/2024 4:49 AM PEDIATRIC ASSOCIATE [facility] Appearance Urine Clear Clear 07/13/20 4:49 AM PEDIATRIC ASSOCIATE [facility] Glucose Urine Negative Negative mg/dL 07/13/2024 4:49 AM PEDIATRIC ASSOCIATE [facility] Bilirubin Urine Negative Negative 4:49 AM PEDIATRIC ASSOCIATE [facility] Ketones Urine 40(A) Negative mg/dL 07/13/2024 4:49 AM PEDIATRIC ASSOCIATE [facility] Specific [place] Urine 1.017 1.001 - 1.030 07/13/2024 4:49 AM PEDIATRIC ASSOCIATE [facility] Blood Urine Negative Negative 07/13/2024 4:49 AM PEDIATRIC ASSOCIATE [facility] pH Urine 6.0 5.0 - 7.0 07/13/2024 4:49 AM PEDIATRIC ASSOCIATE [facility] Protein Albumin Urine Negative Negative mg/dL 07/13/2024 4:49 AM PEDIATRIC ASSOCIATE [facility] Urobilinogen Urine <2.0 <2.0 mg/dL 07/13/2024 4:49 AM PEDIATRIC ASSOCIATE [facility] Nitrite Urine Negative Negative 07/13/2024 4:49 AM PEDIATRIC ASSOCIATE [facility] Leukocyte Esterase Urine Negative Negative 07/13/2024 4:49 AM PEDIATRIC ASSOCIATE [facility] RBC Urine 1 <=2 /HPF 07/13/2024 4:49 AM PEDIATRIC ASSOCIATE [facility] WBC Urine 1 <=5 /HPF 07/13/2024 4:49 AM PEDIATRIC ASSOCIATE [facility] Urine URINE SPECIMEN OBTAINED BY CLEAN CATCH PROCEDURE / Unknown Non-blood Collection / Unknown 07/13/2024 4:26 AM PEDIATRIC ASSOCIATE 07/13/2024 4:40 AM PEDIATRIC ASSOCIATE Narrative [facility] - 07/13/2024 4:49 AM PEDIATRIC ASSOCIATE Urine Culture not indicated us Jack Cornejo MD LAB - URINE ORDERABLES Final Res ult [facility] [address] [place] [address], [facility] * (ABNORMAL) CBC with platelets and differential (07/13/2024 1:19 AM PEDIATRIC ASSOCIATE) Only the most recent of4 resultswithin the time period is included. WBC Count 13.1(H) 4.0 - 11.0 10e3/uL 07/13/2024 1:27 AM PEDIATRIC ASSOCIATE [facility] RBC Count 4.08(L) 4.40 - 5.90 10e6/uL 07/13/2024 1:27 AM PEDIATRIC ASSOCIATE [facility] Hemoglobin 10.2(L) 13.3 - 17.7 g/dL 07/13/2024 1:27 AM PEDIATRIC ASSOCIATE [facility] Hematocrit 30.8(L) 40.0 - 53.0 % 07/13/2024 1:27 AM PEDIATRIC ASSOCIATE [facility] MCV 76(L) 78 - 100 fL 07/13/2024 1:27 AM PEDIATRIC ASSOCIATE [facility] MCH 25.0(L) 26.5 - 33.0 pg 07/13/2024 1:27 AM PEDIATRIC ASSOCIATE [facility] MCHC 33.1 31.5 - 36.5 g/dL 07/13/2024 1:27 AM PEDIATRIC ASSOCIATE [facility] RDW 17.6(H) 10.0 - 15.0 % 07/13/2024 1:27 AM PEDIATRIC ASSOCIATE [facility] Platelet Count 462(H) 150 - 450 10e3/uL 07/13/2024 1:27 AM PEDIATRIC ASSOCIATE [facility] % Neutrophils 73 % 07/13/2024 1:27 AM PEDIATRIC ASSOCIATE [facility] % Lymphocytes 16 % 07/13/2024 1:27 AM PEDIATRIC ASSOCIATE [facility] % Monocytes 11 % 07/13/2024 1:27 AM PEDIATRIC ASSOCIATE [facility] % Eosinophils 0 % 07/13/2024 1:27 AM PEDIATRIC ASSOCIATE [facility] % Basophils 0 % 07/13/2024 1:27 AM PEDIATRIC ASSOCIATE [facility] % Immature Granulocytes 0 % 07/13/2024 1:27 AM PEDIATRIC ASSOCIATE [facility] NRBCs per 100 WBC 0 <1 /100 024 1:27 AM PEDIATRIC ASSOCIATE [facility] Absolute Neutrophils 9.5(H) 1.6 - 8.3 10e3/uL 07/13/2024 1:27 AM PEDIATRIC ASSOCIATE [facility] Absolute Lymphocytes 2.1 0.8 - 5.3 10e3/uL 07/13/2024 1:27 AM [facility] Absolute Monocytes 1.4(H) 0.0 - 1.3 10e3/uL 07/13/2024 1:27 AM [facility] Absolute Eosinophils 0.1 0.0 - 0.7 10e3/uL 07/13/2024 1:27 AM [facility] Absolute Basophils 0.0 0.0 - 0.2 10e3/uL 07/13/2024 1:27 AM [facility] Absolute Immature Granulocytes 0.1 <=0.4 10e3/uL 07/13/2024 1:27 AM [facility] Absolute NRBCs 0.0 10e3/uL 07/13/2024 1:27 AM [facility] Blood BLOOD SPECIMEN / Unknown Venipuncture / Unknown 07/13/2024 1:19 AM PEDIATRIC ASSOCIATE 07/13/2024 1:23 AM PEDIATRIC ASSOCIATE us Jack Cornejo MD LAB - BLOOD ORDERABLES Final Res ult [facility] [address] [place] [address], [facility] * Lipase (07/13/2024 1:19 AM PEDIATRIC ASSOCIATE) Only the most recent of3 resultswithin the time period is included. [facility] Lipase 27 13 - 60 U/L 07/13/2024 3:10 AM [facility] Blood BLOOD SPECIMEN / Unknown Venipuncture / Unknown 07/13/2024 1:19 AM PEDIATRIC ASSOCIATE 07/13/2024 1:23 AM PEDIATRIC ASSOCIATE us Jack Cornejo MD LAB - BLOOD ORDERABLES Final Res ult [facility] [address] [place] [address], [facility] * Hepatic function panel (07/13/2024 1:19 AM PEDIATRIC ASSOCIATE) Only the most recent of3 resultswithin the time period is included. [facility] Protein Total 6.8 6.4 - 8.3 g/dL 07/13/2024 3:16 AM [facility] Albumin 4.4 3.5 - 5.2 g/dL 07/13/2024 3:16 AM [facility] Bilirubin Total 0.9 <=1.2 mg/dL 07/13/2024 3:16 AM [facility] Alkaline Phosphatase 78 40 - 150 U/L 07/13/2024 3:16 AM [facility] AST 07/13/2024 3:16 AM [facility] Comment:Unsatisfactory speci men - lipemic ALT 07/13/2024 3:16 AM [facility] Comment:Unsatisfactory speci men - lipemic Bilirubin Direct 07/13/20 3:16 AM [facility] Comment:Unsatisfactory speci men - lipemic Blood BLOOD SPECIMEN / Unknown Venipuncture / Unknown 07/13/2024 1:19 AM PEDIATRIC ASSOCIATE 07/13/2024 1:23 AM [facility] [[email or web address]] Jack Cornejo MD LAB - BLOOD ORDERABLES Final Res ult [facility] [address] [place] [address], [facility] * (ABNORMAL) Basic metabolic panel (07/13/2024 1:19 AM [facility] [[email or web address] Only the most recent of4 resultswithin the time period is included. Sodium 127(L) 135 - 145 mmol/L 07/13/2024 3:15 AM [facility] Potassium 4.4 3.4 - 5.3 mmol/L 07/13/2024 3:15 AM [facility] Chloride 91(L) 98 - 107 mmol/L 07/13/2024 3:15 AM [facility] Carbon Dioxide (CO2) 23 22 - 29 mmol/L 07/13/2024 3:15 AM [facility] Anion Gap 13 7 - 15 mmol/L 07/13/2024 3:15 AM [facility] Urea Nitrogen 22.0(H) 6.0 - 20.0 mg/dL 07/13/2024 3:15 AM [facility] Creatinine 0.92 0.67 - 1.17 mg/dL 07/13/2024 3:15 AM [facility] GFR Estimate >90 >60 mL/min/1.7 3m2 07/13/2024 3:15 AM [facility] Comment:eGFR calculated us2020 CKD-EPI equation. Calcium 9.6 8.8 - 10.4 mg/dL 07/13/2024 3:15 AM PEDIATRIC ASSOCIATE [facility] Comment:Reference intervals for this test were updated on 02/03/2024 to reflect our healthy population more accurately. There may be differences in the flagging of prior results with similar values performed with this method. Those prior results can be interpreted in the context of the updated reference intervals. Glucose 91 70 - 99 mg/dL 07/13/2024 3:15 AM [facility] Blood BLOOD SPECIMEN / Unknown Venipuncture / Unknown 07/13/2024 1:19 AM PEDIATRIC ASSOCIATE 07/13/2024 1:23 AM PEDIATRIC ASSOCIATE Jack Cornejo MD LAB - BLOOD ORDERABLES Final Res ult [facility] [address] [place] [address], [facility] * Extra Purple Top Tube (07/11/2024 3:25 PM PEDIATRIC ASSOCIATE) Only the most recent of5 resultswithin the time period is included. Hold Specimen [facility] 07/11/2024 4:32 PM PEDIATRIC ASSOCIATE [facility] Blood VENOUS LINE / Unknown Venipuncture / Unknown 07/11/2024 3:25 PM PEDIATRIC ASSOCIATE 07/11/2024 3:30 PM PEDIATRIC ASSOCIATE Afshin Chisholm MD LAB - BLOOD ORDERABLES Final Result [facility] [address] [place] [address], [facility] * Extra Green Top ([place] Heparin) Tube (07/11/2024 3:25 PM PEDIATRIC ASSOCIATE) Only the most recent of3 resultswithin the time period is included. Hold Specimen [facility] 07/11/2024 4:32 PM PEDIATRIC ASSOCIATE [facility] Blood VENOUS LINE / Unknown Venipuncture / Unknown 07/11/2024 3:25 PM PEDIATRIC ASSOCIATE 07/11/2024 3:30 PM PEDIATRIC ASSOCIATE Afshin Chisholm MD LAB - BLOOD ORDERABLES Final Result Performing Organization Address [facility] de Phone Number [facility] [address] [place] [address], [facility] * RBC and Platelet Morphology (07/11/2024 3:25 PM PEDIATRIC ASSOCIATE) RBC Morphology Confirmed RBC Indices 07/11/2024 4:32 PM PEDIATRIC ASSOCIATE [facility] Platelet Assessment Automated Count Confirmed. Platelet morphology is normal. Automated Count Confirmed. Platelet morphology is normal. ALBERTO 07/11/2024 4:32 PM PEDIATRIC ASSOCIATE [facility] Blood VENOUS LINE / Unknown Venipuncture / Unknown 07/11/2024 3:25 PM PEDIATRIC ASSOCIATE 07/11/2024 3:30 PM PEDIATRIC ASSOCIATE Clinton Franklin DO LAB - BLOOD ORDERABLES Final R esult Performing Organization Address [facility] de Phone Number [facility] [address] [place] [address], [facility] * Magnesium (06/27/2024 8:36 AM PEDIATRIC ASSOCIATE) Only the most recent of3 resultswithin the time period is included. Magnesium 1.9 1.7 - 2.3 mg/dL 06/27/2024 9:09 AM PEDIATRIC ASSOCIATE [facility] Blood BLOOD SPECIMEN / Unknown Venipuncture / Unknown 06/27/2024 8:36 AM PEDIATRIC ASSOCIATE 06/27/2024 8:39 AM PEDIATRIC ASSOCIATE Ronda Ugarte MD LAB - BLOOD ORDERABLES Final Re sult Performing Organization Address [facility] Co de Phone Number [facility] [address] [place] [address], [facility] * Ethyl Alcohol Level (06/27/2024 8:36 AM PEDIATRIC ASSOCIATE) Only the most recent of2 resultswithin the time period is included. Alcohol ethyl <0.01 <=0.01 g/dL 06/27/2024 9:09 AM PEDIATRIC ASSOCIATE [facility] Blood BLOOD SPECIMEN / Unknown Venipuncture / Unknown 06/27/2024 8:36 AM PEDIATRIC ASSOCIATE 06/27/2024 8:39 AM PEDIATRIC ASSOCIATE us Ronda Ugarte MD LAB - BLOOD ORDERABLES Final Re sult [facility] [address] [place], [place] [address] * Urine Creatinine for Drug Screen Panel (06/24/2024 5:29 PM PEDIATRIC ASSOCIATE) Only the most recent of2 resultswithin the time period is included. Creatinine Urine for Drug Screen 57 mg/dL 06/24/2024 6:26 PM PEDIATRIC ASSOCIATE [facility] Comment:The reference range has not been established for creatinine in random urines. The results should be integrated into the clinical context for interpretation. Urine URINE SPECIMEN OBTAINED BY CLEAN CATCH PROCEDURE / Unknown Non-blood Collection / Unknown 06/24/2024 5:29 PM PEDIATRIC ASSOCIATE 06/24/2024 5:57 PM PEDIATRIC ASSOCIATE us Osmar Kitchen MD LAB - URINE ORDERABLES Final Res ult [facility] [address] [facility] [place] [address] * (ABNORMAL) Urine Drug Confirmation Panel (06/24/2024 5:29 PM PEDIATRIC ASSOCIATE) Nordiazepam Present(A ) Absent 06/30/2024 1:57 PM PEDIATRIC ASSOCIATE [facility] Comment:Nordiazepam is an ex pected metabolite of diazepam. Oxazepam Present(A ) Absent 06/30/2024 1:57 PM PEDIATRIC ASSOCIATE [facility] Comment:Oxazepam and temazep am are benzodiazepine drugs but may also be present as common metabolites of other benzodiazepine drugs, including diazepam, temazepam. Oxazepam and temazepam are also available as scheduled prescription medications. Temazepam Present(A ) Absent 06/30/2024 1:57 PM PEDIATRIC ASSOCIATE [facility] Comment:Oxazepam and temazep am are benzodiazepine drugs, but may also be present as common metabolites of other benzodiazepine drugs, including diazepam. Gabapentin (Neurontin) Present(A ) Absent 06/30/2024 1:57 PM PEDIATRIC ASSOCIATE [facility] Comment:Sources of gabapenti n are prescription medications. Urine URINE SPECIMEN OBTAINED BY CLEAN CATCH PROCEDURE / Unknown Non-blood Collection / Unknown 06/24/2024 5:29 PM PEDIATRIC ASSOCIATE 06/24/2024 5:57 PM PEDIATRIC ASSOCIATE Narrative [facility] - 06/30/2024 1:57 PM PEDIATRIC ASSOCIATE This test was developed and its performance characteristics determined by the [facility], Special Chemistry Laboratory. It has not been [...] of 50 ng/mL: 7-AMINOCLONAZEPAM, 7-AMINOFLUNITRAZEPAM, ALPRAZOLAM, AMPHETAMINE, I-JR-WMDPTZTRGV, I-GC-TLNJOQFJQ, L-UJ-APZJGXYNB, BENZOYLECGONINE (Cocaine Metabolite), CLONAZEPAM, COCAETHYLENE (Cocaine Metabolite), CODEINE, DIAZEPAM, DIHYDROCODEINE, EDDP (Methadone Metabolite), HYDROCODONE, HYDROMORPHONE, LORAZEPAM, MDA (3,4-Methylenedioxyamphetamine), MDEA (3,9-Ferdqnuxuswysz-U-ethylcathinone), MDMA (Methylenedioxyamphetamine,Ecstasy), MEPERIDINE, METHADONE, METHAMPHETAMINE, METHYLPHENIDATE (Ritalin), MORPHINE, NALTREXONE, V-RCRKFBD-KIXTSFWKXV, NORCODEINE, NORDIAZEPAM, NORMEPERIDINE, R-CQJ-KBXVVPBL, OXAZEPAM, OXYCODONE, OXYMORPHONE, PROPOXYPHENE, RITALINIC ACID, TAPENTADOL, [...] Res ult SPECIAL DRUG/BGEN Special Drug/BGEN 500 [facility], [address] [address] * THC Confirmation Quantitative Urine (06/24/2024 5:28 PM PEDIATRIC ASSOCIATE) [facility] THC Metabolite 358 ng/mL 07/03/2024 1:05 PM PEDIATRIC ASSOCIATE SPECIAL DRUG/BGEN Comment: Positive cuttoff: 5 ng/mL Quantitative result is marijuana metabolite measured as 48-jwq-qebyq-2-hfrjiug-YNU (carboxy-THC) by liquid chromatography with mass spectrometry [...] Ratio 628 ng/mg Creat 07/03/2024 1:05 PM PEDIATRIC ASSOCIATE SPECIAL DRUG/BGEN Urine URINE SPECIMEN OBTAINED BY CLEAN CATCH PROCEDURE / Unknown Non-blood Collection / Unknown 06/24/2024 5:28 PM PEDIATRIC ASSOCIATE 06/24/2024 10:03 PM PEDIATRIC ASSOCIATE Narrative SPECIAL DRUG/BGEN - 07/03/2024 1:05 PM PEDIATRIC ASSOCIATE This test was developed and its performance characteristics determined by the [facility], Special Chemistry Laboratory. It has not been cleared or approved by the FDA. The laboratory is regulated under CLIA as qualified to perform high-complexity testing. This test is used for clinical purposes. It should not be regarded as investigational or for research. us Osmar Kitchen MD LAB - URINE ORDERABLES Final Res ult UM SPECIAL DRUG/BGEN UM Special Drug/BGEN 500 [facility], Room [address] [place] [phone] * Benzodiazepines, Urine, Quantitative (06/24/2024 5:28 PM PEDIATRIC ASSOCIATE) Diazepam, Urine <20 ng/mL 6:14 PM PEDIATRIC ASSOCIATE [facility] Comment:Cutoff: 20 ng/mL Oxazepam 377 ng/mL 06/28/2024 6:14 PM PEDIATRIC ASSOCIATE [facility] Comment:Cutoff: 20 ng/mL Temazepam, Urn, Quant 273 ng/mL 06/28/2024 6:14 PM PEDIATRIC ASSOCIATE [facility] Comment:Cutoff: 20 ng/mL Nordiazepam, Urn, Quant 262 ng/mL 06/28/2024 6:14 PM PEDIATRIC ASSOCIATE [facility] Comment:Cutoff: 20 ng/mL Chlordiazepoxide, Urn, Quant <20 ng/mL 06/28/2024 6:14 PM PEDIATRIC ASSOCIATE [facility] Comment:Cutoff: 20 ng/mL Lorazepam <20 ng/mL 06/28/2024 6:14 PM PEDIATRIC ASSOCIATE [facility] Comment:Cutoff: 20 ng/mL Alprazolam <5 ng/mL 06/28/2024 6:14 PM PEDIATRIC ASSOCIATE [facility] Comment:Cutoff: 5 ng/mL Alpha-Hydroxytriazol am, Urine 21 ng/mL 06/28/2024 6:14 PM PEDIATRIC ASSOCIATE [facility] Comment:Cutoff: 5 ng/mL Clonazepam, Urine <5 ng/mL 024 6:14 PM PEDIATRIC ASSOCIATE [facility] Comment:Cutoff: 5 ng/mL 7-aminoclonazepam, Urine <5 ng/mL 06/28/2024 6:14 PM PEDIATRIC ASSOCIATE [facility] Comment:Cutoff: 5 ng/mL Midazolam, Urine <20 ng/mL 06/28/20 24 6:14 PM PEDIATRIC ASSOCIATE [facility] Comment:Cutoff: 20 ng/mL Alpha-hydroxymidazol am, Urine <20 ng/mL 06/28/2024 6:14 PM PEDIATRIC ASSOCIATE [facility] Comment: Cutoff: 20 ng/mL INTERPRETIVE INFORMATION: Benzodiazepines, [...] developed and its performance characteristics determined by [facility]. It has not been cleared or approved by the US Food and Drug Administration. This test was performed in a CLIA certified laboratory and is intended for clinical purposes. Performed By: [facility] [address] [place] [address] Entertainment Centre Manager: Edson Sheffield MD, PhD CLIA Number: [id number] Urine URINE SPECIMEN OBTAINED BY CLEAN CATCH PROCEDURE / Unknown Non-blood Collection / Unknown 06/24/2024 5:28 PM PEDIATRIC ASSOCIATE 06/24/2024 10:03 PM PEDIATRIC ASSOCIATE us Osmar Kitchen MD LAB - URINE ORDERABLES Final Res ult [address] [address], [facility] [phone] * (ABNORMAL) Urine Drug Screen Panel (06/24/2024 5:28 PM PEDIATRIC ASSOCIATE) Pathologist [facility] Amphetamines Urine Screen Negative Screen Negative 06/24/2024 10:03 PM PEDIATRIC ASSOCIATE [facility] Comment:Cutoff for a negativ e amphetamine is less than 500 ng/mL. Barbituates Urine Screen Negative Screen Negative 06/24/2024 10:03 PM PEDIATRIC ASSOCIATE [facility] Comment:Cutoff for a negativ e barbiturate is less than 200 ng/mL. Benzodiazepine Urine Screen Positive(A) Screen Negative 06/24/2024 10:03 PM PEDIATRIC ASSOCIATE [facility] Comment: Cutoff for a positive benzodiazepine is 100 ng/mL or greater. This is an unconfirmed screening result to be used for medical purposes only. Cannabinoids Urine Screen Positive(A) Screen Negative 06/24/2024 10:03 PM PEDIATRIC ASSOCIATE [facility] Comment: Cutoff for a positive cannabinoid is 50 ng/mL or greater. This is an unconfirmed screening result to be used for medical purposes only. Cocaine Urine Screen Negative Screen Negative 06/24/2024 10:03 PM PEDIATRIC ASSOCIATE [facility] Comment:Cutoff for a negativ e cocaine is less than 300 ng/mL. Fentanyl Qual Urine Screen Negative Screen Negative 06/24/2024 10:03 PM PEDIATRIC ASSOCIATE [facility] Comment:Cutoff for negative fentanyl is less than 5 ng/mL. Opiates Urine Screen Negative Screen Negative 06/24/2024 10:03 PM PEDIATRIC ASSOCIATE [facility] Comment:Cutoff for a negativ e opiate is less than 300 ng/mL. PCP Urine Screen Negative Screen Negative 06/24/2024 10:03 PM PEDIATRIC ASSOCIATE [facility] Comment:Cutoff for a negativ e PCP is less than 25 ng/mL. Urine URINE SPECIMEN OBTAINED BY CLEAN CATCH PROCEDURE / Unknown Non-blood Collection / Unknown 06/24/2024 5:28 PM PEDIATRIC ASSOCIATE 06/24/2024 9:43 PM PEDIATRIC ASSOCIATE us Osmar Kitchen MD LAB - URINE ORDERABLES Final Res ult UR LABORATORY [facility]0 [facility], [address] [place] [phone] * Phosphatidylethanol (PEth), Whole Blood (06/24/2024 8:14 AM PEDIATRIC ASSOCIATE) PEth 16:0/18:1 (POPEth) 71 ng/mL 06/26/2024 12:33 PM PEDIATRIC ASSOCIATE [facility] Comment: PEth 16:0/18:1 (POPEth) Less than 10 ng/mL............Not detected Less than 20 ng/mL............Abstinence or light alcohol consumption 20 - 200 ng/mL................Moderate alcohol consumption Greater than 200 ng/mL........Heavy alcohol consumption or chronic alcohol use (Reference: Arlette Marcos and Shira Bassett 2018 J. Forensic Sci) PEth 16:0/18:2 (PLPEth) 28 ng/mL 06/26/2024 12:33 PM [facility] [[email or web address]] [employer] Comment:Reference ranges are not well established. EER Phosphatidylethanol (PETH) See Note 06/26/2024 12:33 PM [facility] [[email or web address]] [employer] Comment: Authorized individuals can access the [employer] Enhanced Report using the following link: [email or web address] PEth Interpretation See Comment 06/26/2024 12:33 PM [facility] [[email or web address]] [employer] Comment: Phosphatidylethanol (PEth) is a group of [...] developed and its performance characteristics determined by [facility]. It has not been cleared or approved by the U.S. Food and Drug Administration. This test was performed in a CLIA-certified laboratory and is intended for clinical purposes. Performed By: [facility] [address] [place] [address] Entertainment Centre Manager: Edson Sheffield MD, PhD CLIA Number: [id number] Blood BLOOD SPECIMEN / Unknown Venipuncture / Unknown 06/24/2024 8:14 AM PEDIATRIC ASSOCIATE 06/24/2024 8:39 AM PEDIATRIC ASSOCIATE us Osmar Kitchen MD LAB - BLOOD ORDERABLES Final Res ult [facility] [address] [place] [address], [facility] [phone] * (ABNORMAL) Comprehensive metabolic panel (06/24/2024 8:14 AM PEDIATRIC ASSOCIATE) Only the most recent of2 resultswithin the time period is included. Sodium 135 135 - 145 mmol/L 06/24/2024 11:15 AM PEDIATRIC ASSOCIATE [facility] Potassium 3.5 3.4 - 5.3 mmol/L 06/24/2024 11:15 AM PEDIATRIC ASSOCIATE [facility] Carbon Dioxide (CO2) 27 22 - 29 mmol/L 06/24/2024 11:15 AM PEDIATRIC ASSOCIATE [facility] Anion Gap 13 7 - 15 mmol/L 06/24/2024 11:15 AM PEDIATRIC ASSOCIATE [facility] Urea Nitrogen 13.0 6.0 - 20.0 mg/dL 06/24/2024 11:15 AM PEDIATRIC ASSOCIATE [facility] Creatinine 1.18(H) 0.67 - 1.17 mg/dL 06/24/2024 11:15 AM PEDIATRIC ASSOCIATE [facility] GFR Estimate 86 >60 mL/min/1.7 3m2 06/24/2024 11:15 AM PEDIATRIC ASSOCIATE [facility] Comment:eGFR calculated 2020 CKD-EPI equation. Calcium 9.4 8.8 - 10.4 mg/dL 06/24/2024 11:15 AM PEDIATRIC ASSOCIATE [facility] Comment:Reference intervals for this test were updated on 02/03/2024 to reflect our healthy population more accurately. There may be differences in the flagging of prior results with similar values performed with this method. Those prior results can be interpreted in the context of the updated reference intervals. Chloride 95(L) 98 - 107 mmol/L 06/24/2024 11:15 AM PEDIATRIC ASSOCIATE [facility] Glucose 111(H) 70 - 99 mg/dL 06/24/2024 11:15 AM PEDIATRIC ASSOCIATE [facility] Alkaline Phosphatase 78 40 - 150 U/L 06/24/2024 11:15 AM PEDIATRIC ASSOCIATE [facility] AST 15 0 - 45 U/L 06/24/2024 11:15 AM PEDIATRIC ASSOCIATE [facility] ALT 15 0 - 70 U/L 06/24/2024 11:15 AM PEDIATRIC ASSOCIATE [facility] Protein Total 6.2(L) 6.4 - 8.3 g/dL 06/24/2024 11:15 AM PEDIATRIC ASSOCIATE [facility] Albumin 4.2 3.5 - 5.2 g/dL 06/24/2024 11:15 AM PEDIATRIC ASSOCIATE [facility] Bilirubin Total 0.7 <=1.2 mg/dL 06/24/2024 11:15 AM PEDIATRIC ASSOCIATE [facility] Blood BLOOD SPECIMEN / Unknown Venipuncture / Unknown 06/24/2024 8:14 AM PEDIATRIC ASSOCIATE 06/24/2024 8:39 AM PEDIATRIC ASSOCIATE us Dillon Euceda PA-C LAB - BLOOD ORDERABLES Final Res ult UR LABORATORY [facility]0 [facility], [address] [place] [phone] * (ABNORMAL) CBC with platelets (06/24/2024 8:14 AM PEDIATRIC ASSOCIATE) WBC Count 9.8 4.0 - 11.0 10e3/uL 06/24/2024 8:50 AM PEDIATRIC ASSOCIATE [facility] RBC Count 4.16(L) 4.40 - 5.90 10e6/uL 06/24/2024 8:50 AM PEDIATRIC ASSOCIATE [facility] Hemoglobin 11.1(L) 13.3 - 17.7 g/dL 06/24/2024 8:50 AM PEDIATRIC ASSOCIATE [facility] Hematocrit 33.5(L) 40.0 - 53.0 % 06/24/2024 8:50 AM PEDIATRIC ASSOCIATE [facility] MCV 81 78 - 100 fL 06/24/2024 8:50 AM PEDIATRIC ASSOCIATE [facility] MCH 26.7 26.5 - 33.0 pg 06/24/2024 8:50 AM PEDIATRIC ASSOCIATE [facility] MCHC 33.1 31.5 - 36.5 g/dL 06/24/2024 8:50 AM PEDIATRIC ASSOCIATE [facility] RDW 16.2(H) 10.0 - 15.0 % 06/24/2024 8:50 AM PEDIATRIC ASSOCIATE [facility] Platelet Count 472(H) 150 - 450 10e3/uL 06/24/2024 8:50 AM PEDIATRIC ASSOCIATE [facility] Blood BLOOD SPECIMEN / Unknown Venipuncture / Unknown 06/24/2024 8:14 AM PEDIATRIC ASSOCIATE 06/24/2024 8:39 AM PEDIATRIC ASSOCIATE Dillon Euceda PA-C LAB - BLOOD ORDERABLES Final Res ult UR LABORATORY [facility] [address] [facility], [address] [place] [address] * Lactic acid whole blood (06/23/2024 6:19 PM PEDIATRIC ASSOCIATE) Lactic Acid 1.1 0.7 - 2.0 mmol/L 06/23/2024 6:31 PM PEDIATRIC ASSOCIATE [facility] Blood STRUCTURE OF RIGHT UPPER LIMB / Unknown Venipuncture / Unknown 06/23/2024 6:19 PM PEDIATRIC ASSOCIATE 06/23/2024 6:27 PM PEDIATRIC ASSOCIATE Yamil Espinosa MD LAB - BLOOD ORDERABLES Final R esult Performing Organization Address City/[facility]/ZIP Co de Phone Number U LABORATORY [facility] Core Lab 500 [facility], Room [address] [place], [place] [phone] * (ABNORMAL) Lactic acid whole blood with 1x repeat in 2 hr when >2 (06/23/2024 3:49 PM PEDIATRIC ASSOCIATE) Lactic Acid, Initial 2.2(H) 0.7 - 2.0 mmol/L 06/23/2024 4:11 PM PEDIATRIC ASSOCIATE [facility] Blood BLOOD SPECIMEN / Unknown Venipuncture / Unknown 06/23/2024 3:49 PM PEDIATRIC ASSOCIATE 06/23/2024 3:59 PM PEDIATRIC ASSOCIATE Yamil Espinosa MD LAB - BLOOD ORDERABLES Final R esult [facility] Core Lab 500 [facility], [address] [phone] * Adult Type and Screen (06/23/2024 3:49 PM PEDIATRIC ASSOCIATE) ABO/RH(D) B POS 06/23/2024 3:38 PM PEDIATRIC ASSOCIATE BLOOD BANK Antibody Screen Negative Negative 06/23/2024 3:38 PM PEDIATRIC ASSOCIATE BLOOD BANK SPECIMEN EXPIRATION DATE [id number] 06/23/2024 3:38 PM PEDIATRIC ASSOCIATE BLOOD BANK Blood BLOOD SPECIMEN / Unknown Venipuncture / Unknown 06/23/2024 3:49 PM PEDIATRIC ASSOCIATE 06/23/2024 3:59 PM PEDIATRIC ASSOCIATE us Yamil Espinosa MD LAB - BLOOD BANK TEST ORDER Fi nal Result BLOOD BANK [address] [place] [address] * EKG 12-lead, tracing only (06/23/2024 3:46 PM PEDIATRIC ASSOCIATE) Systolic Blood Pressure mmHg RADIOLOGY RESULTS Diastolic Blood Pressure mmHg RADIOLOGY RESULTS Ventricular Rate 90 BPM RAD IOLOGY RESULTS Atrial Rate 90 BPM RADIOLOG Y RESULTS WI Interval 136 ms RADIOLOG Y RESULTS QRS Duration 84 ms RADIOLO GY RESULTS QT 384 ms RADIOLOGY RESULTS QTc 469 ms RADIOLOGY RESULTS P [place] 80 degrees RADIOLOGY RESULTS R AXIS 55 degrees RADIOLOGY RESULTS T [place] 52 degrees RADIOLOGY RESULTS Interpretation ECG Sinus rhythm Normal ECG Unconfirmed report - interpretation of this ECG is computer generated - see medical record for final interpretation Confirmed by - EMERGENCY ROOM, PHYSICIAN ([id number]), commercial production editor CORRINA COSTELLO ([id number]) on 06/24/2024 7:43:56 AM RADIOLOGY RESULTS 06/23/2024 3:46 PM PEDIATRIC ASSOCIATE 06/24/2024 7:43 AM PEDIATRIC ASSOCIATE us Yamil Espinosa MD ECG ORDERABLES Edited Result - Final RADIOLOGY RESULTS * Extra Red Top Tube (06/23/2024 3:42 PM PEDIATRIC ASSOCIATE) Hold Specimen JIC 06/23/2024 5:02 PM PEDIATRIC ASSOCIATE [facility] Blood STRUCTURE OF LEFT UPPER LIMB / Unknown Venipuncture / Unknown 06/23/2024 3:42 PM PEDIATRIC ASSOCIATE 06/23/2024 4:00 PM PEDIATRIC ASSOCIATE us Adam Alvesejremías GOMES LAB - BLOOD ORDERABLES Fi nal Result Performing Organization Address City/[facility]/ZIP Co de Phone Number LABORATORY [facility] [place] Core Lab 500 [facility], [address] * Extra Blue Top Tube (06/23/2024 3:42 PM PEDIATRIC ASSOCIATE) Hold Specimen JIC 06/23/2024 5:02 PM PEDIATRIC ASSOCIATE LABORATORY Blood STRUCTURE OF LEFT UPPER LIMB / Unknown Venipuncture / Unknown 06/23/2024 3:42 PM PEDIATRIC ASSOCIATE 06/23/2024 4:00 PM PEDIATRIC ASSOCIATE Adam Barros DO LAB - BLOOD ORDERABLES Fi nal Result Performing Organization Address City/[facility]/ZIP Co de Phone Number LABORATORY [facility] [place] Core Lab 500 [facility], [address] * INR (06/23/2024 3:42 PM PEDIATRIC ASSOCIATE) INR 1.08 0.85 - 1.15 06/23/2024 4:25 PM PEDIATRIC ASSOCIATE LABORATORY Blood STRUCTURE OF LEFT UPPER LIMB / Unknown Venipuncture / Unknown 06/23/2024 3:42 PM PEDIATRIC ASSOCIATE 06/23/2024 4:00 PM PEDIATRIC ASSOCIATE Yamil Espinosa MD LAB - BLOOD ORDERABLES Final R esult Performing Organization Address City/[facility]/ZIP Co de Phone Number LABORATORY [facility] [place] Core Lab 500 [facility] Unit Building, [address] [phone] * Phosphorus (06/23/2024 3:42 PM PEDIATRIC ASSOCIATE) Only the most recent of2 resultswithin the time period is included. Phosphorus 2.6 2.5 - 4.5 mg/dL 06/23/2024 7:44 PM PEDIATRIC ASSOCIATE [facility] Blood STRUCTURE OF LEFT UPPER LIMB / Unknown Venipuncture / Unknown 06/23/2024 3:42 PM PEDIATRIC ASSOCIATE 06/23/2024 4:00 PM PEDIATRIC ASSOCIATE us Dillon Euceda PA-C LAB - BLOOD ORDERABLES Final Res ult [facility] [place] Core Lab 500 [facility], [address] [place] [address], 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
--- OUTSIDE RECORDS SUMMARY | 2024-09-21 19:07 | XMS_ITS | Clinical Summary ---
Author Organization [facility] Address [address], [place] [address] Care Team Providers Care Contract Design Agent Name Role Phone Deepthi Mc PA-C Primary Care Provider [phone] Source Comments You are receiving this document as you are listed as the primary care provider,follow-up provider, or the patient has been referred to you for consultation.This is in compliance with the Medicare andThe [facility] EHR Incentive Program,which states Providers who transition their patient to another setting of careor provider of care or refers their patient to another provider of care shouldprovide summary care record for each transition of care or referral. [facility] Allergies No known active allergies Medications ondansetron (ZOFRAN-ODT) 4 MG disintegrating tablet Take 1 Tablet by mouth every 8 hours as needed for Nausea. 10 Tablet 1 Active FLUoxetine (PROZAC) 20 MG tablet Take [...] history of withdrawal seizures or withdrawal complications. [place] admission on 03/26/20 for alcohol withdrawal and discharged on 03/28/20. Patient is interested in quitting. Has previously tried clonidine and naltrexone. Patient with history of alcohol abuse. No history of withdrawal seizures or withdrawal complications. [place] admission on 03/26/20 for alcohol withdrawal and [...] for cyclic vomiting; hospitalization at [facility] 05/03 (72 hr hold); 12/01 at [facility] History of Suicide Attempts: no Under the [...] for cyclic vomiting; hospitalization at [facility] 05/03 (72 hr hold); 12/01 at [facility] History of Suicide Attempts: no Under the [...] for cyclic vomiting; hospitalization at [facility] 05/03 (72 hr hold); 12/01 at [facility] History of Suicide Attempts: no Asthma 12/11/2007 Overview (12/26/2020): Patient with childhood asthma, not currently requiring any inhalers or medication. Patient with childhood asthma, not currently requiring any inhalers or medication. Encounters Date Type Department Care Team Description 06/27/2024 5:07 PM MISSILE CONTROL PILOT - 06/27/2024 11:59 PM MISSILE CONTROL PILOT Hospital Encounter [facility] [address] [place] [address] Cherelle Lilly MD Discharge Disposition: Home from Last 3 Months Social History Tobacco Use Types Packs/Day Years Used Date Smoking Tobacco: Every Day Cigarettes Sex and Gender Information Value Date Recorded Sex Assigned at Not on file Legal Sex Male 6:54 AM CDT Gender Identity Not on file Sexual Orientation Not on file Last Filed Vital Signs Vital Sign Reading Time Taken Comments Blood Pressure 165/84 08/11/2021 5:23 PM [facility] Pulse 77 08/11/2021 5:23 PM [facility] Temperature 36.4 C (97.5 F) 08/11/2021 5:23 PM [facility] Respiratory Rate 20 08/11/2021 5:23 PM [facility] Oxygen Saturation 100% 08/11/2021 5:23 PM MISSILE CONTROL PILOT Inhaled Oxygen Concentration - - Weight 104.3 kg (230 lb) 08/11/2021 5:26 PM MISSILE CONTROL PILOT Height 182.9 cm (6') 08/11/2021 5:26 PM MISSILE CONTROL PILOT Body Mass Index 31.19 08/11/2021 5:26 PM MISSILE CONTROL PILOT Plan of Treatment Health Maintenance Due Date Last Done Comments Hep C Screening (Preventive Services) 1995 Asthma ACT (score of 20 or higher) 1999 HepA (2 of 2 - 2-dose series) 07/29/2008 01/27/2008 HIV Screening (Preventive Services) 2011 Adult Preventive Visit 10/02/2013 HepB (1) 10/02/2014 Pneumococcal (1 of 2 - PCV) 10/02/2014 COVID-19 Vaccine ( - season) 2024 11/29/2020, 11/08/2020 Influenza (#1) 2024 [...] on patient's age to complete this topic Meningococcal B Aged Out No longer el igible based on patient's age to complete this topic Insurance [employer] Care Teams Contract Design Agent Relationship Specialty Start Date End Date Deepthi Mc [place] [address] [place] [address] PCP - General Physician Tractor Engine Assembler 08/15/24
--- OUTSIDE RECORDS SUMMARY | 2024-09-21 19:07 | XMS_ITS | Encounter Summary ---
Author Organization [facility] Address [facility] [place] [address] Care Team Providers Care Recycling Operator Name Role Phone Rajan Mcpeace Wilkins Primary Care Provider [phone] Reason for Visit * Reason Onset Date Comments MH/CD Inpatient 12/08/2013 Encounter Details Date Type Department Care Team ([facility] st Contact Info) Description 12/08/2013 Telephone [facility] Behavioral Health Intake [address] [place] [phone] Generic, Behavioral Intake, MH/CD Inpatient Social History [...] 12/08/2013 11:23 AM CDT S: Katarzyna from [facility] calling requesting Psych bed for pt. # [phone] B: Pt was BIB mother to [place] ED 12/06/13 for self induced vomiting; OCD [...] have not pursued commitment at this time. [facility] will [facility] unable to take him at this time. If commitment is supported by [facility], I invited Katarzyna to call back and check on bed availability. 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
--- OUTSIDE RECORDS SUMMARY | 2024-09-21 19:07 | XMS_ITS | Clinical Summary ---
Author Organization [employer] Address [address] [place] [id number] Care Team Providers Care Welfare Eligibility Worker Name Role Phone Deepthi Mc Primary Care [...] if needed. Active cloNIDine 0.1 mg/24 hr ([id number]) 0.1 mg/24 hr patchIndications:A nxiety,ETOH abuse APPLY 1-2 PATCHES ON DRY, CLEAN, HAIRLESS SKIN ONCE WEEKLY 24 Patch 5 01/30/20 24 Active multivitamins with minerals tabletIndications: Anxiety Take 1 Tablet by mouth once daily. 90 Tablet 3 03/31/20 24 Active desvenlafaxine succinate (Pristiq) 100 mg [...] OR VOMITING 60 Tablet 06/02/20 24 Active prochlorperazine (COMPAZINE) 25 mg suppositoryIndicat ions:Nausea and vomiting, unspecified vomiting type UNWRAP AND INSERT 1 SUPPOSITORY( 25 MG) RECTALLY EVERY 12 HOURS NEEDED FOR NAUSEA OR VOMITING 24 Suppository 3 06/25/20 24 Active dextroamphetamine- amphetamine (AdderalL) 10 mg tabletIndications: Attention deficit hyperactivity disorder (ADHD), combined type Take 1 Tablet (10 mg) by mouth 2 times daily at 7 AM and Noon. 60 Tablet 08/09/19 25 Active hydrOXYzine HCL (ATARAX) 25 mg tabletIndications: Anxiety TAKE 1 TO 2 TABLETS(25 TO 50 MG) BY MOUTH EVERY 6 HOURS NEEDED FOR ANXIETY 120 Tablet 5 08/23/19 25 Active traZODone (DESYREL) 50 mg tabletIndications: Insomnia, idiopathic TAKE 1/2 TABLET BY MOUTH AT BEDTIME NEEDED 45 Tablet 5 08/23/19 25 Active ramelteon (ROZEREM) 8 mg tabletIndications: Insomnia, idiopathic Take 1 Tablet (8 mg) by mouth at bedtime if needed for Sleep. 30 Tablet 08/23/19 25 Active fluticasone (50 mcg per actuation) nasal solution (FLONASE)Indicatio ns:Recurrent acute suppurative otitis media without spontaneous rupture of left tympanic membrane,ETD (Eustachian tube dysfunction), bilateral Inhale 2 Sprays in both nostrils once daily. 16 g 3 09/01/19 25 Active LORazepam 1 mg tabletIndications: Anxiety Take 1 Tablet (1 mg) by mouth at bedtime if needed for Anxiety. 10 Tablet 09/06/19 25 Active gabapentin (NEURONTIN) 600 mg tabletIndications: Alcohol use disorder Take 300 mg in the am, 300 mg mid day and 600 mg in the evening. 120 Tablet 5 09/06/19 25 Active DULoxetine (CYMBALTA) 20 mg Delayed-release capsuleIndications :Anxiety Take 1 Capsule (20 mg) by mouth once daily. 90 Capsule 09/06/19 25 Active traZODone (DESYREL) 50 mg tabletIndications: Insomnia, idiopathic TAKE 1/2 TABLET BY MOUTH AT BEDTIME NEEDED 45 Tablet 5 04/27/20 24 025 Discontin ued(Reord er (E-cancel not sent)) hydrOXYzine HCL (ATARAX) 25 mg tabletIndications: Anxiety TAKE 1 TO 2 TABLETS(25 TO 50 MG) BY MOUTH EVERY 6 HOURS NEEDED FOR ANXIETY 120 Tablet 5 05/17/20 24 025 Discontin ued(Reord er (E-cancel not sent)) ramelteon (ROZEREM) 8 mg tabletIndications: Insomnia, idiopathic Take 1 Tablet (8 mg) by mouth at bedtime if needed for Sleep. 30 Tablet 06/02/20 24 025 Discontin ued(Reord er (E-cancel not sent)) acamprosate (CAMPRAL) 333 mg tabletIndications: Alcoholism (HC) Take 2 Tablets (666 mg) by mouth three times daily. 180 Tablet 5 06/02/20 24 025 Discontin ued(*Rebecca ent states no longer taking) gabapentin (NEURONTIN) 600 mg tabletIndications: Alcohol use disorder Take 300 mg in the am, 300 mg mid day and 600 mg in the evening. 120 Tablet 5 06/02/20 24 025 Discontin ued(Reord er (E-cancel not sent)) LORazepam 1 mg tabletIndications: Anxiety Take 1 Tablet (1 mg) by mouth at bedtime if needed for Anxiety. 10 Tablet 08/09/19 25 025 Discontin ued(Reord er (E-cancel not sent)) Active Problems Problem Noted Date Diagnosed Date [...] [facility] for mental health care. [facility] . Initial intake 12/10/12 Previous Medication [...] ER visit for cyclic vomiting; hospitalization at [facility] 05/03 (72 hr hold); 12/01 at [facility] History of Suicide Attempts: no [...] 02/16/2008 02/18/2014 Obesity, unspecified 12/11/2007 014 Encounters Date Type Department Care Team Description 09/06/2024 2:40 PM [employer] L[employer] C[employer]TER Office Visit [facility] [address] [place] [address] Deepthi Mc PA Medication Management 09/06/2024 Travel 09/01/2024 2:00 PM [employer]TER Office Visit [address] [place] [address] Alanna Erwin PA Consult (Conductive hearing loss of right ear with unrestricted hearing of left ear /Recurrent acute suppurative otitis media without spontaneous rupture of left tympanic membrane ) 09/01/2024 Travel 08/17/2024 Telephone [facility] [address] [place] [address] Deepthi Mc PA Questions (need a new prescriptions for all medication ) 08/09/2024 2:00 PM [employer]TER Office Visit [facility] [address] [place] [address] Deepthi Mc PA Ear Problem (Check both ears); Medication Management (Discuss restarting Adderall and ativan) 08/09/2024 Travel 07/08/2024 Telephone [facility] [address] [place] [address] Deepthi Mc PA Medication Management (Adderall ) 06/29/[address] [address] Deepthi Mc PA Form (treatment letter) 06/29/[address] [address] Deepthi Mc PA Letter 06/24/2024 Telephone [facility] [address] [place] [address] Deepthi Mc PA Referral ([facility]) from Last 3 Months Immunizations Name Administration Dates Next Due COVID-19 vaccine (Gravie NTIsai 30mcg/0.3mL) 12YO+ MINH-SUCROSE PF, MDV 11/28/2021 COVID-19 vaccine (Gravie NTech 30mcg/0.3mL) PF, MDV 11/29/2020,11/08/2020 DTP-HIB 1995 [...] Date Smoking Tobacco: Every Day Cigarettes 0.3 5.9 Started: 11/09/2018 Smokeless Tobacco: Never Tobacco Cessation:Ready to Q uit: No; Counseling Given: No Comments:couple per day Alcohol Use Standard Drinks/Week Comments Not Currently 0 (1 standard drink = 0.6 oz [...] on file Legal 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 Gender Identity Not on file Sexual Orientation Not on file 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 Not on file Not on file 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 Not on file Not on file Not on file Obstetrics History Last Filed Vital Signs Vital Sign Reading Time Taken Comments Blood Pressure 144/85 09/06/2024 2:46 PM [employer] LIFT CUTTER Pulse 90 09/06/2024 2:46 PM [employer] LIFT C[employer]TER Temperature 37.4 C (99.4 F) 12/30/2020 8:55 PM CDT Respiratory Rate 18 12/30/2020 8:55 PM CDT Oxygen Saturation 100% 02/13/2024 11:31 AM CDT Inhaled Oxygen Concentration - - Weight 107 kg (236 lb) 09/06/2024 2:46 PM TOP LIFT CUTTER Height 182 cm (5' 11.65) 11/01/2022 2:24 PM CDT Body Mass Index 32.32 11/01/2022 2:24 PM CDT Plan of Treatment Upcoming Encounters Date Type Department Care Team (Late st Contact Info) Description 09/27/2024 2:00 PM CDT Office Visit [facility] [address] [place] [address] Deepthi Mc PA [address] [place] [address] Health Maintenance Due Date Last Done Comments Hepatitis C screening for ag e 2014 Pneumococcal series for age 6-49 (1 of 2 - PCV) 10/02/2014 Depression screening for age 12+ 09/02/2023 09/02/2022, 01/22/2021, 12/16/2019, Additional history exists BMI (ht and wt on same day) for age 18+ 11/02/2023 11/01/2022, 08/27/2021, 01/22/2021, Additional history exists COVID-19 vaccine series (2023- season) 2024 11/28/2021, 11/29/2020, 11/08/2020 Influenza for age 9-49 03/21/2024 05/17/2022, 2019 Tetanus booster 03/20/2030 03/20/2020, 02/20, 01/27/2008 Tdap Completed 01/27/2008 HIV for age 15-65 Completed 10/15/2013 Procedures Procedure Name Priority Date/Time Associated Diagnosis Comments ANTI HIV 1/2 Routine 10/15/2013 9:28 AM CDT Diarrhea GERD (gastroesophageal reflux disease) Weight loss from Last 3 Months or Most Recently Relevant to Health Maintenance Results * ANTI HIV 1/2 (10/15/2013 9:28 AM CDT) ANTI HIV 1/2 Non-reacti ve [facility] Blood specimen (specimen) BLOOD SPECIMEN / Unknown 10/15/2013 9:28 AM CDT 10/15/2013 9:13 AM CDT us Luis Jarrett MD SEND OUTS Final Res ult [facility] INTERNAL ZIP [id number] [place], [place] [id number] from Last 3 Months or Most Recently Relevant to Health Maintenance Insurance [facility] Advance Directives * Full Code (Latest Code Status on File) Date Activated Date Inactivated Comments 05/15/2014 4:32 PM 05/18/2014 8:52 PM * Full Code Date Activated Date Inactivated Comments 05/02/2014 7:01 PM 05/07/2014 1:56 PM Care Teams Welfare Eligibility Worker Relationship Specialty Start Date End Date Deepthi Mc PA [address] [place] [address] PCP - General Family Practice 03/04/11
[2024-09-21 19:08] VITALS: BP 186/124; PULSE 120; RESP 22; TEMP 36.1; O2SAT 100; BMI 31.2
[2024-09-21 19:17] VITALS: BP 183/87
--- OUTSIDE RECORDS SUMMARY | 2024-09-21 19:31 | XMS_ITS | Clinical Summary ---
Author Organization [facility] Address [address], [place] [address] Care Team Providers Care Strickler Attendant Name Role Phone Deepthi Mc PA-C Primary Care Provider [phone] Source Comments You are receiving this document as you are listed as the primary care provider,follow-up provider, or the patient has been referred to you for consultation.This is in compliance with the Medicare and[facility] EHR Incentive Program,which states Providers who transition their patient to another setting of careor provider of care or refers their patient to another provider of care shouldprovide summary care record for each transition of care or referral. [facility] Allergies No known active allergies Medications ondansetron [...] history of withdrawal seizures or withdrawal complications. [place] admission on 03/26/20 for alcohol withdrawal and discharged on 03/28/20. Patient is interested in quitting. Has previously tried clonidine and naltrexone. Patient with history of alcohol abuse. No history of withdrawal seizures or withdrawal complications. [place] admission on 03/26/20 for alcohol withdrawal and discharged on 03/28/20. Patient is interested in quitting. Has previously tried clonidine and naltrexone. Persistent sleep disorder 10/17/2016 Insomnia 09/19/2016 Cyclical vomiting 04/04/2016 Social anxiety disorder 02/26/2016 PTSD (post-traumatic stress disorder) 05/16/2014 Generalized anxiety disorder 12/03/2013 Overview (12/26/2020): Under the care of Dr. Rafat Falcon for mental health care. [facility] . Initial intake 12/10/12 Previous Medication [...] ER visit for cyclic vomiting; hospitalization at [facility] 05/03 (72 hr hold); 12/01 at [facility] History of Suicide Attempts: no Under the care of Dr. Rafat Falcon for mental health care. [facility] . Initial intake 12/10/12 Previous Medication [...] ER visit for cyclic vomiting; hospitalization at [facility] 05/03 (72 hr hold); 12/01 at [facility] History of Suicide Attempts: no Under the care of Dr. Rafat Falcon for mental health care. [facility] . Initial intake 12/10/12 Previous Medication [...] ER visit for cyclic vomiting; hospitalization at [facility] 05/03 (72 hr hold); 12/01 at [facility] History of Suicide Attempts: no Asthma 12/11/2007 Overview (12/26/2020): Patient with childhood asthma, not currently requiring any inhalers or medication. Patient with childhood asthma, not currently requiring any inhalers or medication. Encounters Date Type Department Care Team Description 06/27/2024 5:07 PM DATABASE ADMINISTRATION PROJECT MANAGER - 06/27/2024 11:59 PM DATABASE ADMINISTRATION PROJECT MANAGER Hospital Encounter [facility] [address] [place] [address] Cherelle Lilly MD Discharge Disposition: Home from [...] Comments Blood Pressure 165/84 08/11/2021 5:23 PM DATABASE ADMINISTRATION PROJECT MANAGER Pulse 77 08/11/2021 5:23 PM DATABASE ADMINISTRATION PROJECT MANAGER Temperature 36.4 C (97.5 F) 08/11/2021 5:23 PM DATABASE ADMINISTRATION PROJECT MANAGER Respiratory Rate 20 08/11/2021 5:23 PM DATABASE ADMINISTRATION PROJECT MANAGER Oxygen Saturation 100% 08/11/2021 5:23 PM DATABASE ADMINISTRATION PROJECT MANAGER Inhaled Oxygen Concentration - - Weight 104.3 kg (230 lb) 08/11/2021 5:26 PM DATABASE ADMINISTRATION PROJECT MANAGER Height 182.9 cm (6') 08/11/2021 5:26 PM DATABASE ADMINISTRATION PROJECT MANAGER Body Mass Index 31.19 08/11/2021 5:26 PM DATABASE ADMINISTRATION PROJECT MANAGER Plan of Treatment Health Maintenance Due Date [...] patient's age to complete this topic Insurance [facility] Care Teams Strickler Attendant Relationship Specialty Start Date End Date Deepthi Mc [place] [address] PCP - General Physician Digital Imager 08/15/24
--- OUTSIDE RECORDS SUMMARY | 2024-09-21 19:32 | XMS_ITS | Encounter Summary ---
Author Organization [facility] Address [facility] [place] [address] Care Team Providers Care Group Exercise Instructor Name Role Phone Rajan Mcpeace Wilkins Primary Care Provider [phone] Reason for Visit * Reason Onset Date Comments MH/CD Inpatient 12/08/2013 Encounter Details Date Type Department Care Team ([facility] st Contact Info) Description 12/08/2013 Telephone [facility] Behavior[facility] Health Intake [address] [place] [phone] Generic, Behavioral Intake, MH/CD Inpatient Social History [...] 12/08/2013 11:23 AM CDT S: Katarzyna from [facility] calling requesting Psych bed for pt. # [phone] B: Pt was BIB mother to [facility] 12/06/13 for self induced vomiting; OCD [...] have not pursued commitment at this time. [facility] will be unable to take him at this time. If commitment is supported by [facility], I invited Katarzyna to call back and check on bed availability. 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
--- OUTSIDE RECORDS SUMMARY | 2024-09-21 19:32 | XMS_ITS | Clinical Summary ---
Author Organization [facility] Address [address] [place] [address] Care Team Providers Care Trekking Guide Name Role Phone Elsewhere, Pcp Primary Care Provider Unavailabl e Source Comments Patient records contain information from all sites at [facility]. For routine questions regarding patient records, call [phone] during business hours, M-F 8:00 AM - 5:00 PM Central Time. Record requests for emergency care only can be directed to [phone] at any time.[facility] Allergies Active Allergy Reactions Criticality Noted [...] history of withdrawal seizures or withdrawal complications. [place] admission on 03/26/20 for alcohol withdrawal and [...] System 05/03 (72 hr hold); 12/01 at [facility] History of Suicide Attempts: no Asthma [...] e alcohol) 750 ml straight Vodka Daily SCYNEXIS Answer Date Recorded In the past 12 months has e [employer], [employer], oil, or water [employer] threatened to shut off services in your [...] your living situation today? 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 LAB BLOOD ADD-ON Final Result [facility] [address] [place] [address], [email or web address] [address] [place] [address] from Last 3 Months or Most Recently Relevant to Health Maintenance Insurance [facility] Advance Directives For more information, please contact: [phone] * Full Code (Latest Code Status on [...] Due to: Not medically appropriate Care Teams Trekking Guide Relationship Specialty Start Date End Date Elsewhere, Pcp PCP - General Internal Medicine 03/26/24
--- OUTSIDE RECORDS SUMMARY | 2024-09-21 19:32 | XMS_ITS | Clinical Summary ---
Author Organization [facility] Address [address] [place] [address] Care Team Providers Care Retail Brand Ambassador Name Role Phone Deepthi Mc Primary Care [...] if needed. Active cloNIDine 0.1 mg/24 hr ([id number]) 0.1 mg/24 hr patchIndications:A nxiety,ETOH abuse APPLY [...] Dr. Rafat Falcon for mental health care. [facility] . Initial intake 12/10/12 Previous Medication [...] ER visit for cyclic vomiting; hospitalization at [facility] 05/03 (72 hr hold); 12/01 at [facility] History of Suicide Attempts: no Cannabis [...] Department Care Team Description 09/06/2024 2:40 PM TECHNICIAN AUTOMATIC Office Visit [facility] [address] [place] [address] Deepthi Mc PA Medication Management 09/06/2024 Travel 09/01/2024 2:00 PM TECHNICIAN AUTOMATIC Office Visit [address] [place] [phone] Alanna Erwin PA Consult (Conductive hearing loss of right ear with unrestricted hearing of left ear /Recurrent acute suppurative otitis media without spontaneous rupture of left tympanic membrane ) 09/01/2024 Travel 08/17/2024 Telephone [facility] [address] [place] [address] Deepthi Mc PA Questions (need a new prescriptions for all medication ) 08/09/2024 2:00 PM TECHNICIAN AUTOMATIC Office Visit [facility] [address] [place] [address] Deepthi Mc PA Ear Problem (Check both ears); Medication Management (Discuss restarting Adderall and ativan) 08/09/2024 Travel 07/08/2024 Telephone [facility] [address] [place] [address] Deepthi Mc PA Medication Management (Adderall ) 06/29/[address] [address] Deepthi Mc PA Form (treatment letter) 06/29/[address] [address] Deepthi Mc PA Letter 06/24/2024 Telephone [facility] [address] [place] [address] Deepthi Mc PA Referral ([facility]) from Last 3 Months Immunizations Name Administration Dates Next Due COVID-19 vaccine ([employer] NTGiiv 30mcg/0.3mL) 12YO+ MINH-SUCROSE PF, MDV 11/28/2021 COVID-19 vaccine ([employer] NTech 30mcg/0.3mL) PF, MDV 11/29/2020,11/08/2020 DTP-HIB 1995 [...] on file Legal Sex Male 5:18 AM TECHNICIAN AUTOMATIC Gender Identity Not on file Sexual Orientation Not on file 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 Not on file Not on file 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 Not on file Not on file Not on file Obstetrics History Last Filed Vital Signs Vital Sign Reading Time Taken Comments Blood Pressure 144/85 09/06/2024 2:46 PM TECHNICIAN AUTOMATIC Pulse 90 09/06/2024 2:46 PM TECHNICIAN AUTOMATIC Temperature 37.4 C (99.4 F) 12/30/2020 8:55 PM CDT Respiratory Rate 18 12/30/2020 8:55 PM CDT Oxygen Saturation 100% 02/13/2024 11:31 AM CDT Inhaled Oxygen Concentration - - Weight 107 kg (236 lb) 09/06/2024 2:46 PM TECHNICIAN AUTOMATIC Height 182 cm (5' 11.65) 11/01/2022 2:24 PM CDT Body Mass Index 32.32 11/01/2022 2:24 PM CDT Plan of Treatment Upcoming Encounters Date Type Department Care Team (Late st Contact Info) Description 09/27/2024 2:00 PM CDT Office Visit [facility] [address] [place] [address] Deepthi Mc PA [address] [place] [address] Health Maintenance Due Date Last Done Comments [...] AM CDT) ANTI HIV 1/2 Non-reacti ve [facility] Blood specimen (specimen) BLOOD SPECIMEN / Unknown 10/15/2013 9:28 AM CDT 10/15/2013 9:13 AM CDT us Luis Jarrett MD SEND OUTS Final Res ult [facility] INTERNAL ZIP [id number] [place], [place] [id number] from Last 3 Months or Most Recently Relevant to Health Maintenance Insurance [facility] Advance Directives * Full Code (Latest Code Status on File) Date Activated Date Inactivated Comments 05/15/2014 4:32 PM 05/18/2014 8:52 PM * Full Code Date Activated Date Inactivated Comments 05/02/2014 7:01 PM 05/07/2014 1:56 PM Care Teams Retail Brand Ambassador Relationship Specialty Start Date End Date Deepthi Mc PA [address] [place] [address] PCP - General Family Practice 03/04/11
--- OUTSIDE RECORDS SUMMARY | 2024-09-21 19:32 | XMS_ITS ---
Author Organization Unknown Address [address] [place], [place] [phone] Phone Care Team Providers Care Aviation Support Equipment Repairer Name Role Phone CLAIRE TEJADA Attending Unavailable [...] Code Sys tem Cyclical vomiting syndrome 10/28/2023 [id number] S NOMED-CT Personal Care Team Section Performer Name Performer Role Active Date Inactive Da te
[2024-09-21] MEDS: OLANZapine 5 MG/ML inj 10 MG IM (19:34)
[2024-09-21] MEDS: KETOROLAC 30 MG/ML inj IM (19:36)
[2024-09-21 19:42] LABS: Chloride* 95 mmol/L (96-114); Potassium* 3.9 mmol/L (3.6-5.1); Sodium* 136 mmol/L (135-149)
[2024-09-21 19:45] LABS: Anion Gap 17 mEq/L (7-15); Blood Urea Nitrogen* 20 mg/dL (5-24); Carbon Dioxide* 24 mmol/L (20-32); Creatinine* 0.8 mg/dL (0.5-1.5); Est. Creatinine Clearance* 150.89; Estimated Glomerular Filt Rate 124 ml/min; Glucose* 120 mg/dL (60-115); Magnesium* 1.5 mg/dL (1.5-2.6)
[2024-09-21] MEDS: diphenhydrAMINE 50 MG/ML inj IM (19:53)
[2024-09-21 21:11] VITALS: BP 170/100; PULSE 112; RESP 24; O2SAT 100
[2024-09-21] MEDS: PROMETHAZINE 25 MG/ML INJ IM (21:18)
[2024-09-21] MEDS: LORazepam 2 MG/ML inj 1 MG IM (21:50)
== END 2024-09-21 22:35 | disposition home or self-care (01) ==
PROVIDERS: Emergency Provider Family Medicine; PCP Physician Assistant Medical
DX: R11.15 Cyclical vomiting syndrome unrelated to migraine (principal); R45.1 Restlessness and agitation; F41.9 Anxiety disorder, unspecified
CPT/HCPCS: 36415; 80048; 80306; 81001; 83735; 96372; 99284; J1200; J1885; J2060; J2550

== ENCOUNTER 2024-10-06 18:59 | Emergency (ER) | payer BC, SELFPAY ==
[2024-10-06] VITALS (9 sets, daily range): BP systolic 114–118; BP diastolic 85–94; PULSE 72–103; RESP 20; TEMP 36.7; O2SAT 92–100; BMI 31.2
--- OUTSIDE RECORDS SUMMARY | 2024-10-06 19:01 | XMS_ITS | Clinical Summary ---
Author Organization [facility] Address [address], [place] [address] Care Team Providers Care Seat Installer Name Role Phone Deepthi Mc PA-C Primary Care Provider [phone] Source Comments You are receiving this document as you are listed as the primary care provider,follow-up provider, or the patient has been referred to you for consultation.This is in compliance with the Medicare and[facility] EHR Incentive Program,which states Providers who transition their patient to another setting of careor provider of care or refers their patient to another provider of care shouldprovide summary care record for each transition of care or referral. [facility] Allergies No known active allergies Medications [...] history of withdrawal seizures or withdrawal complications. [place] admission on 03/26/20 for alcohol withdrawal and discharged on 03/28/20. Patient is interested in quitting. Has previously tried clonidine and naltrexone. Patient with history of alcohol abuse. No history of withdrawal seizures or withdrawal complications. [place] admission on 03/26/20 for alcohol withdrawal and discharged on 03/28/20. Patient is interested in quitting. Has previously tried clonidine and naltrexone. Persistent sleep disorder 10/17/2016 Insomnia 09/19/2016 Cyclical vomiting 04/04/2016 Social anxiety disorder 02/26/2016 PTSD (post-traumatic stress disorder) 05/16/2014 Generalized anxiety disorder 12/03/2013 Overview (12/26/2020): Under the care of Dr. Rafat Falcon for mental health care. [facility] . Initial intake 12/10/12 Previous [...] ER visit for cyclic vomiting; hospitalization at [facility] 05/03 (72 hr hold); 12/01 at [facility] History of Suicide Attempts: no Under the care of Dr. Rafat Falcon for mental health care. [facility] . Initial intake 12/10/12 Previous [...] ER visit for cyclic vomiting; hospitalization at [facility] 05/03 (72 hr hold); 12/01 at [facility] History of Suicide Attempts: no Under the care of Dr. Rafat Falcon for mental health care. [facility] . Initial intake 12/10/12 Previous [...] ER visit for cyclic vomiting; hospitalization at [facility] 05/03 (72 hr hold); 12/01 at [facility] History of Suicide Attempts: no Asthma 12/11/2007 Overview (12/26/2020): Patient with childhood asthma, not currently requiring any inhalers or medication. Patient with childhood asthma, not currently requiring any inhalers or medication. Social History Tobacco Use Types Packs/Day Years Used Date Smoking Tobacco: Every Day Cigarettes Sex and Gender Information Value Date Recorded Sex Assigned at Not on file Legal Sex Male 6:54 AM CDT Gender Identity Not on file Sexual Orientation Not on file Last Filed Vital Signs Vital Sign Reading Time Taken Comments Blood Pressure 165/84 08/11/2021 5:23 PM FUSE COILER Pulse 77 08/11/2021 5:23 PM FUSE COILER Temperature 36.4 C (97.5 F) 08/11/2021 5:23 PM FUSE COILER Respiratory Rate 20 08/11/2021 5:23 PM FUSE COILER Oxygen Saturation 100% 08/11/2021 5:23 PM FUSE COILER Inhaled Oxygen Concentration - - Weight 104.3 kg (230 lb) 08/11/2021 5:26 PM FUSE COILER Height 182.9 cm (6') 08/11/2021 5:26 PM FUSE COILER Body Mass Index 31.19 08/11/2021 5:26 PM FUSE COILER Plan of Treatment Health Maintenance Due Date Last Done Comments Hep C Screening (Preventive Services) 1995 Asthma ACT (score of 20 or higher) 1999 HepA (2 of 2 - 2-dose series) 07/29/2008 01/27/2008 HIV Screening (Preventive Services) 2011 Adult Preventive Visit 10/02/2013 HepB (1) 10/02/2014 Pneumococcal (1 of 2 - PCV) 10/02/2014 COVID-19 Vaccine (3 - season) 2024 11/29/2020, 11/08/2020 Influenza (#1) [...] patient's age to complete this topic Insurance [facility] Care Teams Seat Installer Relationship Specialty Start Date End Date Deepthi Mc [place] [address] [place] [address] PCP - General Physician Reduction Plant Supervisor 08/15/24
--- OUTSIDE RECORDS SUMMARY | 2024-10-06 19:02 | XMS_ITS ---
Author Organization Unknown Address [address] [place], [place] [phone] Phone Care Team Providers Care Sap Senior Developer Name Role Phone CLAIRE TEJADA Attending Unavailable [...] Code Sys tem Cyclical vomiting syndrome 10/28/2023 [id number] S NOMED-CT Personal Care Team Section Performer Name Performer Role Active Date Inactive Da te
--- OUTSIDE RECORDS SUMMARY | 2024-10-06 19:02 | XMS_ITS | Clinical Summary ---
Author Organization [place] Address [address] [place] [address] Care Team Providers Care Hairspring Ii Inspector Name Role Phone Jesusita Deepthi Wilkins Primary Care Provider [phone] Allergies Active Allergy Reactions Criticality Noted Date [...] history of withdrawal seizures or withdrawal complications. [place] admission on 03/26/20 for alcohol withdrawal and discharged on 03/28/20. Patient is interested in quitting. Has previously tried clonidine and naltrexone. Patient with history of alcohol abuse. No history of withdrawal seizures or withdrawal complications. [place] admission on 03/26/20 for alcohol withdrawal and discharged on 03/28/20. Patient is interested in quitting. Has previously tried clonidine and naltrexone. Patient with history of alcohol abuse. No history of withdrawal seizures or withdrawal complications. [place] admission on 03/26/20 for alcohol withdrawal and discharged on 03/28/20. Patient is interested in quitting. Has previously tried clonidine and naltrexone. Cyclical vomiting 04/04/2016 Social anxiety disorder 02/26/2016 PTSD (post-traumatic stress disorder) 05/16/2014 Overview (07/15/2021): Under the care of Dr. Rafat Falcon for mental health care. [facility] . Initial intake 12/10/12 Previous Medication [...] ER visit for cyclic vomiting; hospitalization at [facility] 05/03 (72 hr hold); 12/01 at [facility] History of Suicide Attempts: no Under the care of Dr. Rafat Falcon for mental health care. [facility] . Initial intake 12/10/12 Previous Medication [...] ER visit for cyclic vomiting; hospitalization at [facility] 05/03 (72 hr hold); 12/01 at [facility] History of Suicide Attempts: no Under the care of Dr. Rafat Falcon for mental health care. [facility] . Initial intake 12/10/12 Previous Medication [...] ER visit for cyclic vomiting; hospitalization at [facility] 05/03 (72 hr hold); 12/01 at [facility] History of Suicide Attempts: no Under the care of Dr. Rafat Falcon for mental health care. [facility] . Initial intake 12/10/12 Previous Medication [...] ER visit for cyclic vomiting; hospitalization at [facility] 05/03 (72 hr hold); 12/01 at [facility] History of Suicide Attempts: no Under the care of Dr. Rafat Falcon for mental health care. [facility] . Initial intake 12/10/12 Previous Medication [...] ER visit for cyclic vomiting; hospitalization at [facility] 05/03 (72 hr hold); 12/01 at [facility] History of Suicide Attempts: no Under the care of Dr. Rafat Falcon for mental health care. [facility] . Initial intake 12/10/12 Previous Medication [...] ER visit for cyclic vomiting; hospitalization at [facility] 05/03 (72 hr hold); 12/01 at [facility] History of Suicide Attempts: no Under the care of Dr. Rafat Falcon for mental health care. [facility] . Initial intake 12/10/12 Previous Medication [...] ER visit for cyclic vomiting; hospitalization at [facility] 05/03 (72 hr hold); 12/01 at [facility] History of Suicide Attempts: no [...] Department Care Team Description 07/12/2024 10:10 PM ADDICTION PROFESSIONAL - 07/13/2024 6:40 AM [facility] Emergency Department [facility] [place] [address] Jack Cornejo MD Mott, Sarah E, MD Nausea and vomiting, unspecified vomiting type Discharge Disposition: Home or Self Care 07/12/2024 Documentation Only [facility] [address] [facility] [address] [place] [address] Christine Ugarte Advance Care Planning 07/11/2024 3:18 PM ADDICTION PROFESSIONAL - 07/11/2024 6:55 PM [facility] Emergency [facility] Emergency Department [address] [place] [address] Clinton Franklin DO Cyclic vomiting syndrome Discharge Disposition: Home or Self Care 07/11/2024 Travel from Last 3 Months Social History [...] Answer Date Recorded Do you have housing? (Adein g is defined as stable permanent housing [...] Comments Blood Pressure 122/60 07/13/2024 6:16 AM ADDICTION PROFESSIONAL Pulse 117 07/12/2024 10:01 PM ADDICTION PROFESSIONAL Temperature 36.7 C (98.1 F) 07/12/2024 10:01 PM ADDICTION PROFESSIONAL Respiratory Rate 30 07/12/2024 10:01 PM ADDICTION PROFESSIONAL Oxygen Saturation 100% 07/12/2024 10:01 PM ADDICTION PROFESSIONAL Inhaled Oxygen Concentration - - Weight 98.9 kg (218 lb) 07/12/2024 10:01 PM ADDICTION PROFESSIONAL Height 182.9 cm (6') 07/11/2024 3:12 PM ADDICTION PROFESSIONAL Body Mass Index 29.57 07/11/2024 3:12 PM ADDICTION PROFESSIONAL Plan of Treatment Health Maintenance Due Date [...] REFLEX TO CULTURE STAT 07/13/2024 4:26 AM ADDICTION PROFESSIONAL CBC WITH PLATELETS & DIFFERENTIAL STAT 07/13/2024 1:19 AM ADDICTION PROFESSIONAL CBC WITH PLATELETS AND DIFFERENTIAL STAT 07/13/2024 1:19 AM ADDICTION PROFESSIONAL LIPASE STAT 07/13/2024 1:19 AM ADDICTION PROFESSIONAL HEPATIC FUNCTION PANEL STAT 07/13/2024 1:19 AM ADDICTION PROFESSIONAL BASIC METABOLIC PANEL STAT 07/13/2024 1:19 AM ADDICTION PROFESSIONAL CBC WITH PLATELETS & DIFFERENTIAL STAT 07/11/2024 3:25 PM ADDICTION PROFESSIONAL RBC AND PLATELET MORPHOLOGY STAT 07/11/2024 3:25 PM ADDICTION PROFESSIONAL CBC WITH PLATELETS AND DIFFERENTIAL STAT 07/11/2024 3:25 PM ADDICTION PROFESSIONAL LIPASE STAT 07/11/2024 3:25 PM ADDICTION PROFESSIONAL HEPATIC FUNCTION PANEL STAT 07/11/2024 3:25 PM ADDICTION PROFESSIONAL BASIC METABOLIC PANEL STAT 07/11/2024 3:25 PM ADDICTION PROFESSIONAL EXTRA PURPLE TOP TUBE STAT 07/11/2024 3:25 PM ADDICTION PROFESSIONAL EXTRA GREEN TOP (LITHIUM HEPARIN) TUBE STAT 07/11/2024 3:25 PM ADDICTION PROFESSIONAL EXTRA TUBE STAT 07/11/2024 3:25 PM ADDICTION PROFESSIONAL from Last 3 Months Results * (ABNORMAL) UA with Microscopic reflex to Culture (07/13/2024 4:26 AM ADDICTION PROFESSIONAL) Color Urine Light Yellow Colorless, Straw, Light Yellow, Yellow 07/13/2024 4:49 AM ADDICTION PROFESSIONAL [facility] Appearance Urine Clear Clear 07/13/20 4:49 AM ADDICTION PROFESSIONAL [facility] Glucose Urine Negative Negative mg/dL 07/13/2024 4:49 AM ADDICTION PROFESSIONAL [facility] Bilirubin Urine Negative Negative 4:49 AM ADDICTION PROFESSIONAL [facility] Ketones Urine 40(A) Negative mg/dL 07/13/2024 4:49 AM ADDICTION PROFESSIONAL [facility] Specific [place] Urine 1.017 1.001 - 1.030 07/13/2024 4:49 AM ADDICTION PROFESSIONAL [facility] Blood Urine Negative Negative 07/13/2024 4:49 AM ADDICTION PROFESSIONAL [facility] pH Urine 6.0 5.0 - 7.0 07/13/2024 4:49 AM ADDICTION PROFESSIONAL [facility] Protein Albumin Urine Negative Negative mg/dL 07/13/2024 4:49 AM ADDICTION PROFESSIONAL [facility] Urobilinogen Urine <2.0 <2.0 mg/dL 07/13/2024 4:49 AM ADDICTION PROFESSIONAL [facility] Nitrite Urine Negative Negative 07/13/2024 4:49 AM ADDICTION PROFESSIONAL [facility] Leukocyte Esterase Urine Negative Negative 07/13/2024 4:49 AM ADDICTION PROFESSIONAL [facility] RBC Urine 1 <=2 /HPF 07/13/2024 4:49 AM ADDICTION PROFESSIONAL [facility] WBC Urine 1 <=5 /HPF 07/13/2024 4:49 AM ADDICTION PROFESSIONAL [facility] Urine URINE SPECIMEN OBTAINED BY CLEAN CATCH PROCEDURE / Unknown Non-blood Collection / Unknown 07/13/2024 4:26 AM ADDICTION PROFESSIONAL 07/13/2024 4:40 AM ADDICTION PROFESSIONAL Narrative [facility] - 07/13/2024 4:49 AM ADDICTION PROFESSIONAL Urine Culture not indicated us Jack Cornejo MD LAB - URINE ORDERABLES Final Res ult [facility] [address] [place] [address], [facility] * (ABNORMAL) CBC with platelets and differential (07/13/2024 1:19 AM [facility]) Only the most recent of2 resultswithin the time period is included. WBC Count 13.1(H) 4.0 - 11.0 10e3/uL 07/13/2024 1:27 AM ADDICTION PROFESSIONAL [facility] RBC Count 4.08(L) 4.40 - 5.90 10e6/uL 07/13/2024 1:27 AM ADDICTION PROFESSIONAL [facility] Hemoglobin 10.2(L) 13.3 - 17.7 g/dL 07/13/2024 1:27 AM ADDICTION PROFESSIONAL [facility] Hematocrit 30.8(L) 40.0 - 53.0 % 07/13/2024 1:27 AM ADDICTION PROFESSIONAL [facility] MCV 76(L) 78 - 100 fL 07/13/2024 1:27 AM ADDICTION PROFESSIONAL [facility] MCH 25.0(L) 26.5 - 33.0 pg 07/13/2024 1:27 AM ADDICTION PROFESSIONAL [facility] MCHC 33.1 31.5 - 36.5 g/dL 07/13/2024 1:27 AM ADDICTION PROFESSIONAL [facility] RDW 17.6(H) 10.0 - 15.0 % 07/13/2024 1:27 AM ADDICTION PROFESSIONAL [facility] Platelet Count 462(H) 150 - 450 10e3/uL 07/13/2024 1:27 AM ADDICTION PROFESSIONAL [facility] % Neutrophils 73 % 07/13/2024 1:27 AM ADDICTION PROFESSIONAL [facility] % Lymphocytes 16 % 07/13/2024 1:27 AM ADDICTION PROFESSIONAL [facility] % Monocytes 11 % 07/13/2024 1:27 AM ADDICTION PROFESSIONAL [facility] % Eosinophils 0 % 07/13/2024 1:27 AM ADDICTION PROFESSIONAL [facility] % Basophils 0 % 07/13/2024 1:27 AM ADDICTION PROFESSIONAL [facility] % Immature Granulocytes 0 % 07/13/2024 1:27 AM ADDICTION PROFESSIONAL [facility] NRBCs per 100 WBC 0 <1 /100 024 1:27 AM ADDICTION PROFESSIONAL [facility] Absolute Neutrophils 9.5(H) 1.6 - 8.3 10e3/uL 07/13/2024 1:27 AM ADDICTION PROFESSIONAL [facility] Absolute Lymphocytes 2.1 0.8 - 5.3 10e3/uL 07/13/2024 1:27 AM ADDICTION PROFESSIONAL [facility] Absolute Monocytes 1.4(H) 0.0 - 1.3 10e3/uL 07/13/2024 1:27 AM [facility] Absolute Eosinophils 0.1 0.0 - 0.7 10e3/uL 07/13/2024 1:27 AM [facility] Absolute Basophils 0.0 0.0 - 0.2 10e3/uL 07/13/2024 1:27 AM [facility] Absolute Immature Granulocytes 0.1 <=0.4 10e3/uL 07/13/2024 1:27 AM [facility] Absolute NRBCs 0.0 10e3/uL 07/13/2024 1:27 AM [facility] Blood BLOOD SPECIMEN / Unknown Venipuncture / Unknown 07/13/2024 1:19 AM ADDICTION PROFESSIONAL 07/13/2024 1:23 AM ADDICTION PROFESSIONAL Jack Cornejo MD LAB - BLOOD ORDERABLES Final Res ult [facility] [address] [place] [address], [facility] * Lipase (07/13/2024 1:19 AM ADDICTION PROFESSIONAL) Only the most recent of2 resultswithin the time period is included. Pathologist [facility] Lipase 27 13 - 60 U/L 07/13/2024 3:10 AM [facility] Blood BLOOD SPECIMEN / Unknown Venipuncture / Unknown 07/13/2024 1:19 AM ADDICTION PROFESSIONAL 07/13/2024 1:23 AM ADDICTION PROFESSIONAL Jack Cornejo MD LAB - BLOOD ORDERABLES Final Res ult [facility] [address] [place] [address], [facility] * Hepatic function panel (07/13/2024 1:19 AM ADDICTION PROFESSIONAL) Only the most recent of2 resultswithin the time period is included. Pathologist [facility] Protein Total 6.8 6.4 - 8.3 g/dL 07/13/2024 3:16 AM [facility] Albumin 4.4 3.5 - 5.2 g/dL 07/13/2024 3:16 AM [facility] Bilirubin Total 0.9 <=1.2 mg/dL 07/13/2024 3:16 AM [facility] Alkaline Phosphatase 78 40 - 150 U/L 07/13/2024 3:16 AM [facility] AST 07/13/2024 3:16 AM [facility] Comment:Unsatisfactory speci men - lipemic ALT 07/13/2024 3:16 AM [facility] Comment:Unsatisfactory speci men - lipemic Bilirubin Direct 07/13/20 3:16 AM [facility] Comment:Unsatisfactory speci men - lipemic Blood BLOOD SPECIMEN / Unknown Venipuncture / Unknown 07/13/2024 1:19 AM ADDICTION PROFESSIONAL 07/13/2024 1:23 AM [facility] us Jack Cornejo MD LAB - BLOOD ORDERABLES Final Res ult [facility] [address] [facility] [place], [place] [address] * (ABNORMAL) Basic metabolic panel (07/13/2024 1:19 AM [facility]) Only the most recent of2 resultswithin the time period is included. Sodium 127(L) 135 - 145 mmol/L 07/13/2024 3:15 AM [facility] Potassium 4.4 3.4 - 5.3 mmol/L 07/13/2024 3:15 AM [facility] Chloride 91(L) 98 - 107 mmol/L 07/13/2024 3:15 AM [facility] Carbon Dioxide (CO2) 23 22 - 29 mmol/L 07/13/2024 3:15 AM [facility] Anion Gap 13 7 - 15 mmol/L 07/13/2024 3:15 AM [facility] Urea Nitrogen 22.0(H) 6.0 - 20.0 mg/dL 07/13/2024 3:15 AM [facility] Creatinine 0.92 0.67 - 1.17 mg/dL 07/13/2024 3:15 AM [facility] GFR Estimate >90 >60 mL/min/1.7 3m2 07/13/2024 3:15 AM ADDICTION PROFESSIONAL [facility] Comment:eGFR calculated us2020 CKD-EPI equation. Calcium 9.6 8.8 - 10.4 mg/dL 07/13/2024 3:15 AM ADDICTION PROFESSIONAL [facility] Comment:Reference intervals for this test were updated on 02/03/2024 to reflect our healthy population more accurately. There may be differences in the flagging of prior results with similar values performed with this method. Those prior results can be interpreted in the context of the updated reference intervals. Glucose 91 70 - 99 mg/dL 07/13/2024 3:15 AM ADDICTION PROFESSIONAL [facility] Blood BLOOD SPECIMEN / Unknown Venipuncture / Unknown 07/13/2024 1:19 AM ADDICTION PROFESSIONAL 07/13/2024 1:23 AM ADDICTION PROFESSIONAL Jack Cornejo MD LAB - BLOOD ORDERABLES Final Res ult Performing Organization Address City/[facility]/ZIP Co de Phone Number [facility] [address] [place] [address], [facility] * Extra Purple Top Tube (07/11/2024 3:25 PM ADDICTION PROFESSIONAL) Hold Specimen [facility] 07/11/2024 4:32 PM ADDICTION PROFESSIONAL [facility] Blood VENOUS LINE / Unknown Venipuncture / Unknown 07/11/2024 3:25 PM ADDICTION PROFESSIONAL 07/11/2024 3:30 PM ADDICTION PROFESSIONAL Afshin Chisholm MD LAB - BLOOD ORDERABLES Final Result [facility] [address] [place] [address], [facility] * Extra Green Top ([place] Heparin) Tube (07/11/2024 3:25 PM ADDICTION PROFESSIONAL) Hold Specimen [facility] 07/11/2024 4:32 PM ADDICTION PROFESSIONAL [facility] Blood VENOUS LINE / Unknown Venipuncture / Unknown 07/11/2024 3:25 PM ADDICTION PROFESSIONAL 07/11/2024 3:30 PM ADDICTION PROFESSIONAL us Afshin Chisholm MD LAB - BLOOD ORDERABLES Final Result Performing Organization Address [facility] Co de Phone Number [facility] [address] [place], [place] [address] * RBC and Platelet Morphology (07/11/2024 3:25 PM ADDICTION PROFESSIONAL) RBC Morphology Confirmed RBC Indices 07/11/2024 4:32 PM ADDICTION PROFESSIONAL [facility] Platelet Assessment Automated Count Confirmed. Platelet morphology is normal. Automated Count Confirmed. Platelet morphology is normal. ALBERTO 07/11/2024 4:32 PM ADDICTION PROFESSIONAL [facility] Blood VENOUS LINE / Unknown Venipuncture / Unknown 07/11/2024 3:25 PM ADDICTION PROFESSIONAL 07/11/2024 3:30 PM ADDICTION PROFESSIONAL Clinton Franklin DO LAB - BLOOD ORDERABLES Final R esult Performing Organization Address [facility] Co de Phone Number [facility] [address] [place] [address], [facility] from Last 3 Months [facility] [employer] [facility] Advance Directives For more information, please contact: [phone] Documents on File Type Date Recorded Patient International Travel Consultant Expl anation Advance Directives and Living [...] Comments Code status determined by: Discussion with estrellitae nt/ legal decision maker Healthcare Agents on File Name Relationship Healthcare Agent Relationshi p Communication Veronica Glass Mother First Alternate Health Care Agent Suzette De La Rosa Sister Health Care Agent Larry Sapp Father Second Alternate Health Care Agent Care Teams Hairspring Ii Inspector Relationship Specialty Start Date End Date Deepthi Mc [address] [place] [address] PCP - General Physician [employer] 06/15/23
--- OUTSIDE RECORDS SUMMARY | 2024-10-06 19:03 | XMS_ITS | Clinical Summary ---
Author Organization [facility] Address [address] [place] [address] Care Team Providers Care Hearing And Speech Assistant Name Role Phone Elsewhere, Pcp Primary Care Provider Unavailabl e Source Comments Patient records contain information from all sites at [facility]. For routine questions regarding patient records, call [phone] during business hours, M-F 8:00 AM - 5:00 PM Central Time. Record requests for emergency care only can be directed to [phone] at any time.[facility] Allergies Active Allergy Reactions Criticality Noted Date [...] history of withdrawal seizures or withdrawal complications. [place] admission on 03/26/20 for alcohol withdrawal and discharged on 03/28/20. Patient is interested in quitting. Has previously tried clonidine and naltrexone. Insomnia 09/19/2016 Cyclical Vomiting Syndrome Unrelated To Migraine 04/04/2016 Depressive Disorder 05/16/2014 Anxiety Generalized Disorder 12/03/2013 Overview (03/26/2020): Under the care of Dr. Rafat Falcon for mental health care. [facility] . Initial intake 12/10/12 Previous Medication Trials: [...] ER visit for cyclic vomiting; hospitalization at [facility] 05/03 (72 hr hold); 12/01 at [facility] History of Suicide Attempts: no [...] e alcohol) 750 ml straight Vodka Daily [facility] Answer Date Recorded In the past 12 months has e [employer], [employer], oil, or water [employer] threatened to shut off services in your [...] your living situation today? 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 LAB BLOOD ADD-ON Final Result [facility] [address] [place] [address], [place] [facility] [address] [place] [address] from Last 3 Months or Most Recently Relevant to Health Maintenance Insurance [facility] Advance Directives For more information, please contact: [phone] * Full Code (Latest Code Status on [...] Due to: Not medically appropriate Care Teams Hearing And Speech Assistant Relationship Specialty Start Date End Date Elsewhere, Pcp PCP - General Internal Medicine 03/26/24
--- OUTSIDE RECORDS SUMMARY | 2024-10-06 19:03 | XMS_ITS | Clinical Summary ---
Author Organization [employer] [facility] Address [address] [place] [address] Care Team Providers Care Trial Court Justice Name Role Phone Deepthi Mc Primary Care [...] if needed. Active cloNIDine 0.1 mg/24 hr ([id number]) 0.1 mg/24 hr patchIndications:A nxiety,ETOH abuse APPLY 1-2 PATCHES ON DRY, CLEAN, HAIRLESS SKIN ONCE WEEKLY 24 Patch 5 01/30/20 24 Active multivitamins with minerals tabletIndications: Anxiety Take 1 Tablet by mouth once daily. 90 Tablet 3 03/31/20 24 Active folic acid 1 mg tabletIndications: Alcoholism (HC) Take 1 Tablet (1 mg) by mouth once daily. 90 Tablet 3 06/02/20 24 Active dextroamphetamine- amphetamine (AdderalL) 10 mg [...] daily. 16 g 3 09/01/19 25 Active gabapentin (NEURONTIN) 600 mg tabletIndications: Alcohol use disorder Take 300 mg in the am, 300 mg mid day and 600 mg in the evening. 120 Tablet 5 09/06/19 25 Active DULoxetine (CYMBALTA) 20 mg Delayed-release capsuleIndications :Anxiety Take 1 Capsule (20 mg) by mouth once daily. 90 Capsule 09/06/19 25 Active prochlorperazine (COMPAZINE) 25 mg suppositoryIndicat ions:Nausea and vomiting, unspecified vomiting type UNWRAP AND INSERT 1 SUPPOSITORY( 25 MG) RECTALLY EVERY 12 HOURS NEEDED FOR NAUSEA OR VOMITING 24 Suppository 3 09/23/19 25 Active ondansetron (ZOFRAN ODT) 4 mg disintegrating tabletIndications: Nausea and vomiting, unspecified vomiting type DISSOLVE 1 TABLET ON THE TONGUE EVERY 8 HOURS NEEDED FOR NAUSEA OR VOMITING 60 Tablet 09/23/19 25 Active LORazepam 1 mg tabletIndications: Anxiety Take 1 Tablet (1 mg) by mouth at bedtime if needed for Anxiety. 10 Tablet 09/28/19 25 Active desvenlafaxine succinate (Pristiq) 100 mg extended release tabletIndications: Depression, major, single episode, moderate (HC) Take 1 Tablet (100 mg) by mouth once daily in the morning. 30 Tablet 1 05/24/20 24 025 Discontin ued(*Rebecca ent states no longer taking) ondansetron (ZOFRAN ODT) 4 mg disintegrating tabletIndications: Nausea and vomiting, unspecified vomiting type DISSOLVE 1 TABLET ON THE TONGUE EVERY 8 HOURS NEEDED FOR NAUSEA OR VOMITING 60 Tablet 06/02/20 24 025 Discontin ued(Reord er (E-cancel not sent)) prochlorperazine (COMPAZINE) 25 mg suppositoryIndicat ions:Nausea and vomiting, unspecified vomiting type UNWRAP AND INSERT 1 SUPPOSITORY( 25 MG) RECTALLY EVERY 12 HOURS NEEDED FOR NAUSEA OR VOMITING 24 Suppository 3 06/25/20 24 025 Discontin ued(Reord er (E-cancel not sent)) LORazepam 1 mg tabletIndications: Anxiety Take 1 Tablet (1 mg) by mouth at bedtime if needed for Anxiety. 10 Tablet 09/06/19 25 025 Discontin ued(Reord er (E-cancel not [...] Dr. Rafat Falcon for mental health care. [facility] . Initial intake 12/10/12 Previous Medication Trials: [...] System 05/03 (72 hr hold); 12/01 at [facility] History of Suicide Attempts: no [...] Encounters Date Type Department Care Team Description 09/27/2024 2:00 PM CDT Office Visit [facility] [address] [place] [address] Deepthi Mc PA Medication Management (Pristiq & Cymbalta - is done with the pristiq but has not started the cymbalta yet) 09/27/2024 Travel 09/22/2024 Refill [facility] [address] [place] [address] Deepthi Mc PA Refill Request (Refill request ) 09/06/2024 2:40 PM BIOINFORMATICS SOFTWARE ENGINEER Office Visit [facility] [address] [place] [address] Deepthi Mc PA Medication Management 09/06/2024 Travel 09/01/2024 2:00 PM BIOINFORMAT[employer] SOFTWARE ENGINEER Office Visit [facility] [address] [place] [phone] Alanna Erwin PA Consult (Conductive hearing loss of right ear with unrestricted hearing of left ear /Recurrent acute suppurative otitis media without spontaneous rupture of left tympanic membrane ) 09/01/2024 Travel 08/17/2024 Telephone [facility] [address] [place] [address] Deepthi Mc PA Questions (need a new prescriptions for all medication ) 08/09/2024 2:00 PM B[employer]INFORMATICS SOFTWARE ENGINEER Office Visit [facility] [address] [place] [address] Deepthi Mc PA Ear Problem (Check both ears); Medication Management (Discuss restarting Adderall and ativan) 08/09/2024 Travel 07/08/2024 Telephone [facility] [address] [place] [address] Deepthi Mc PA Medication Management (Adderall ) from Last 3 Months Immunizations Immunization Administration Dates Next Due COVID-19 vaccine ([employer] 30mcg/0.3mL) 12YO+ MINH-SUCROSE PF, MDV 11/28/2021 COVID-19 vaccine ([employer] 30mcg/0.3mL) PF, MDV 11/29/2020,11/08/2020 DTP-HIB 1995 [...] on file Legal Sex Male 5:18 AM BIOINFORMATICS SOFTWARE ENGINEER Gender Identity Not on file Sexual Orientation Not on file 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 Not on file Not on file 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 Not on file Not on file Not on file Obstetrics History Last Filed Vital Signs Vital Sign Reading Time Taken Comments Blood Pressure 135/85 09/27/2024 2:05 PM CDT Pulse 93 09/27/2024 2:05 PM CDT Temperature 37.4 C (99.4 F) 12/30/2020 8:55 PM CDT Respiratory Rate 18 12/30/2020 8:55 PM CDT Oxygen Saturation 100% 02/13/2024 11:31 AM CDT Inhaled Oxygen Concentration - - Weight 107 kg (236 lb) 09/27/2024 2:05 PM CDT Height 182 cm (5' 11.65) 11/01/2022 2:24 PM CDT Body Mass Index 32.32 11/01/2022 2:24 PM CDT Plan of Treatment Upcoming Encounters Date Type Department Care Team (Late st Contact Info) Description 10/25/2024 2:40 PM CDT Office Visit [facility] [address] [place] [address] Deepthi Mc PA [address] [place] [address] Health Maintenance Due Date Last Done Comments [...] 11/08/2020 Influenza Vaccine (#1) 2024 05/17/2022, 2019 Tetanus booster 03/20/2030 03/20/2020, 02/20, [...] AM CDT) ANTI HIV 1/2 Non-reacti ve [facility] Blood specimen (specimen) BLOOD SPECIMEN / Unknown 10/15/2013 9:28 AM CDT 10/15/2013 9:13 AM CDT us Luis Jarrett MD SEND OUTS Final Res ult [facility] INTERNAL ZIP [address] [place], [place] [id number] from Last 3 Months or Most Recently Relevant to Health Maintenance [place] [address] [place] [address] Advance Directives * Full Code (Latest Code Status on File) Date Activated Date Inactivated Comments 05/15/2014 4:32 PM 05/18/2014 8:52 PM * Full Code Date Activated Date Inactivated Comments 05/02/2014 7:01 PM 05/07/2014 1:56 PM Care Teams [address] Justice Relationship Specialty Start Date End Date Deepthi [place] [address] PCP - General Family Practice 03/04/11
--- OUTSIDE RECORDS SUMMARY | 2024-10-06 19:03 | XMS_ITS | Encounter Summary ---
Author Organization [facility] Address [facility] [address] Care Team Providers Care Clinical Education Academic Coordinator Name Role Phone Rajan Mcpeace Wilkins Primary Care Provider [phone] Reason for Visit * Reason Onset Date Comments MH/CD Inpatient 12/08/2013 Encounter Details Date Type Department Care Team ([facility] st Contact Info) Description 12/08/2013 Telephone [facility] Intake [address] [place] [phone] Generic, Behavioral Intake, MH/CD Inpatient Social History [...] 12/08/2013 11:23 AM CDT S: Katarzyna from [facility] calling requesting Psych bed for pt. # [phone] B: Pt was BIB mother to [place] ED 12/06/13 for self induced vomiting; OCD [...] have not pursued commitment at this time. [facility] will be unable to take him at this time. If commitment is supported by [facility], I invited Katarzyna to call back and check on bed availability. 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
--- NOTE | 2024-10-06 19:36 | ED_ITS ---
HPI - Nausea/Vomiting/Diarrhea General Chief complaint: Nausea/Vomiting Stated complaint: vomiting Time Seen by Provider: 10/06/24 19:24 History of Present Illness HPI Narrative: This 29-year-old male has a history of cannabinoid hyper emesis syndrome and comes in with similar symptoms which started yesterday. He has persistent vomiting and arrives with normal vital signs except he is borderline tachycardia. Related Data Home Medications ?Medication ?Instructions ?Recorded ?Confirmed desvenlafaxine succinate 50 mg 50 mg PO DAILY 02/13/22 06/13/24 tablet,extended release 24 hr hydroxyzine HCl 25 mg tablet 25 - 50 mg PO Q6H PRN 02/13/22 06/13/24 lisinopril 10 mg tablet 10 mg PO DAILY 02/13/22 06/13/24 lorazepam 0.5 mg tablet 0.5 mg PO DAILY PRN 02/13/22 06/13/24 ondansetron 4 mg disintegrating 4 mg PO Q8H PRN 02/13/22 06/13/24 tablet prochlorperazine 25 mg rectal 25 mg WY Q12H PRN 02/13/22 06/13/24 suppository trazodone 50 mg tablet 25 mg PO HS PRN 08/14/22 06/13/24 clonidine 0.1 mg/24 hr weekly 1 patch topical .weekly 05/12/24 06/13/24 transdermal patch dextroamphetamine-amphetamine 10 5 - 10 mg PO DAILY 05/12/24 06/13/24 mg tablet (Adderall) dextroamphetamine-amphetamine ER 20 mg PO DAILY 05/12/24 06/13/24 20 mg 24hr capsule,extend release (Adderall XR) gabapentin 600 mg tablet 600 mg PO HS 05/12/24 06/13/24 melatonin 3 mg tablet 3 mg PO HS PRN 05/12/24 06/13/24 naltrexone 50 mg tablet 50 mg PO DAILY 05/12/24 06/13/24 Previous Rx's ?Medication ?Instructions ?Recorded potassium bicarbonate-citric acid 25 meq PO BID #4 ea 05/13/24 25 mEq effervescent tablet sodium chloride 1,000 mg soluble 1,000 mg PO TID #10 tabs 05/13/24 tablet promethazine 50 mg rectal 50 mg WY Q6H PRN #12 ea 09/21/24 suppository Allergies Allergy/AdvReac Type Severity Reaction Status Date / Time haloperidol (From Haldol) Allergy Verified 08/16/24 18:24 olanzapine (From Zyprexa) AdvReac Intermediate Cramping Verified 08/16/24 18:24 of the Muscles Review of Systems Status of ROS: Reports: 10 or more systems reviewed and unremarkable except as noted in History and below Narrative: Constitutional: No fevers, no weight gain or loss. Eyes: No discharge. No vision changes. HENT: No congestion, no sore throat, no ear pain. Cardiovascular: No chest pain, no palpitations. Respiratory: No shortness of breath, no wheezes, no cough. Gastrointestinal: No diarrhea. Frequent vomiting and upper epigastric pain. Genitourinary: No dysuria, no hematuria. Musculoskeletal: Normal range of motion. Skin: No rashes, no pruritis. Neurological: No dizziness, weakness, sensory change, speech change. Endo/Heme/Allergies: No bruising or bleeding. No polydipsia. Pysch: no suicidality, no anxiety, no insomnia. All other systems reviewed and are negative. [facility] Medical History Cannabinoid hyperemesis syndrome ?R11.2 - Nausea with vomiting, unspecified (ICD-10) ?F12.90 - Cannabis use, unspecified, uncomplicated (ICD-10) Cannabinosis ?J66.2 - Cannabinosis (ICD-10) Severe anxiety with panic ?F41.0 - Panic disorder [episodic paroxysmal anxiety] (ICD-10) Normal colonoscopy Normal esophagogastroduodenoscopy (EGD) ?Z01.89 - Encounter for other specified special examinations (ICD-10) Cyclical vomiting ?R11.15 - Cyclical vomiting syndrome unrelated to migraine (ICD-10) Anxiety ?F41.9 - Anxiety disorder, unspecified (ICD-10) Substance abuse ?F19.10 - Other psychoactive substance abuse, uncomplicated (ICD-10) Surgical History History of myringotomy ?Z98.890 - Other specified postprocedural states (ICD-10) Family History Father Alcohol dependence Drug dependence Suicidal behavior with attempted self-injury Social History Narrative: Patient lives with his mother and stepfather; 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 His mother is healthcare power of city attorney and code status is full. History of alcohol and cannabis abuse. Current cigarette smoking. What is your current living situation?: declined to answer Problems where you live: declined to answer In the past 12 months, utilities in danger of being shut off: declined to answer In past 12 months, lack of transportation kept you from medical appts, meetings, work, or getting things needed for daily living: declined to answer In the past 12 mos, have been you worried that your food would run out before you had money to buy more?: declined to answer In the past 12 mos, the food you bought just didn't last and you didn't have money to buy more?: declined to answer Highest level of school completed/degree received: Associate degree: occupational, technical, vocational program Smoking Status: Current every day smoker What tobacco products do you use: cigarettes Smoking packs per day: 0.5 Smoking cigarettes per day: 10.0 Years smoked: 10 Smoking pack-years: 5.00 Smoking quit date/years: >15 years ago Do you use any of these nicotine containing products: E-Cigarettes and Vaping Products Second hand tobacco smoke exposure: No How often do you have a drink containing alcohol: 4 or more times a week Alcohol type: hard liquor How many standard drinks containing alcohol do you have on a typical day: 5 or 6 How often do you have six or more drinks on one occasion: Daily or almost daily AUDIT-C Alcohol total score: 10 Non-prescribed substance use: marijuana (any form) Caffeine: Yes How often does anyone, including family, friends and others, physically hurt you : decline to answer How often does anyone, including family, friends and others, insult or talk down to you: decline to answer How often does anyone, including family, friends and others, threaten you with harm: decline to answer How often does anyone, including family, friends and others, scream or curse at you: decline to answer service: No Health Related Social Needs: unsheltered homelessness (Z59.02) Exam Narrative: Exam Narrative: Constitutional: Well-developed, well-nourished, no acute distress. HEENT: Normocephalic, atraumatic. Neck: Normal range of motion. Nontender. Supple. Heart: Regular. No murmurs. Normal rate. Intact distal pulses. Lungs: Clear to auscultation. No chest discomfort. No wheezes, rhonchi, or rales. Abdomen: Normal bowel sounds. No rebound tenderness. Genitalia: Deferred. Back: No midline tenderness. Normal range of motion. Extremities: Normal range of motion. No injury. Skin: Intact. No rash. Warm. No erythema or pallor. Neurologic: No altered sensation. No weakness. Alert and oriented. Psychiatric: No suicidality. No anxiety or depression. No insomnia. Nursing notes and vitals signs are reviewed. Const: Vital Signs, click to edit/add: Vital Signs - 24 hr 10/06/24 19:25 10/06/24 19:46 10/06/24 19:50 Temperature 98.0 F 98.0 F Pulse Rate Pulse Rate [Pulse Oximeter] 103 H Respiratory Rate 20 Blood Pressure [Le ft Upper Arm] 114/94 H Pulse Oximetry 96 96 Oxygen Delivery Me thod Room Air 10/06/24 20:07 Temperature Pulse Rate 72 Pulse Rate [Pulse Oximeter] Respiratory Rate Blood Pressure [Le ft Upper Arm] Pulse Oximetry 98 Oxygen Delivery Me thod Course Vital Signs Vital signs: Initial Vital Signs Temperature 98.0 F 10/06/24 19:25 Temperature Source Temporal Artery Scan 10/06/24 19:25 Pulse Rate 103 H 10/06/24 19:25 Respiratory Rate 20 10/06/24 19:25 Blood Pressure 114/94 H 10/06/24 19:25 Blood Pressure Mean 100 10/06/24 19:25 Blood Pressure Position Sitting 10/06/24 19:25 Pulse Oximetry 96 10/06/24 19:25 Oxygen Delivery Method Room Air 10/06/24 19:25 Vital Signs Temperature 98.0 F 10/06/24 19:25 Pulse Rate 103 H 10/06/24 19:25 Respiratory Rate 20 10/06/24 19:25 Blood Pressure 114/94 H 10/06/24 19:25 Pulse Oximetry 96 10/06/24 19:25 Oxygen Delivery Method Room Air 10/06/24 19:25 Temperature 98.0 F 10/06/24 19:46 Pulse Rate 72 10/06/24 20:07 Respiratory Rate 20 10/06/24 19:25 Blood Pressure 114/94 H 10/06/24 19:25 Pulse Oximetry 98 10/06/24 20:07 Oxygen Delivery Method Room Air 10/06/24 19:25 Medications Administered Medications: Generic Name Dose Route Start Last Admin Trade Name Kleber PRN Reason Stop Dose Admin Diphenhydramine HCl 50 mg 10/06/24 19:35 10/06/24 19:46 Diphenhydramine 50 Mg/Ml Inj IVP 10/06/24 19:36 50 mg ONCE ONE Administration Sodium Chloride 1,000 mls @ 1,000 mls/hr 10/06/24 19:45 10/06/24 19:46 0.9 % Sodium Chloride 1000 Ml IV 10/06/24 20:44 1,000 mls/hr .Q1H JOSE Administration Ketorolac Tromethamine 30 mg 10/06/24 19:35 10/06/24 19:46 Ketorolac 30 Mg/Ml Inj IVP 10/06/24 19:36 30 mg ONCE ONE Administration Olanzapine 10 mg 10/06/24 19:35 10/06/24 19:46 Olanzapine 5 Mg/Ml Inj IM 10/06/24 19:36 10 mg ONCE ONE Administration MDM - Nausea/Vomiting/Diarrhea MDM Narrative Medical decision making narrative: This patient comes in with hyper emesis due to cannabis use. This is not a new occurrence for him. He has been seen many times for similar circumstances. The patient requested an IM dose of Zyprexa 10 mg which was provided. He also received IV doses of Toradol, Benadryl, and a L of normal saline. His heart rate reduced significantly after receiving these treatments. He still feels shaky and states that he would like to have a mg of Ativan intravenously. I reviewed his record and see that he was prescribed half a mg tablets. He reports that he takes that on occasion. His previous visit here was a couple weeks ago at which time he did not receive a benzodiazepine. I had agreed to give him a 1 time dose of Ativan 0.5 mg and stated him that we will not repeat this medicine here if he returns with similar symptoms. I again advised him to stop cannabis. Discharge Plan Discharge Clinical Impression: Cannabinoid hyperemesis syndrome Patient Disposition: Home w/ Parent or Adult Condition: Improved Additional Instructions: Continue current medications. Avoid cannabis. Follow up with MD as needed. Prescriptions: No Action lorazepam 0.5 mg tablet 0.5 mg PO DAILY PRN prochlorperazine 25 mg suppository 25 mg WY Q12H PRN lisinopril 10 mg tablet 10 mg PO DAILY hydroxyzine HCl 25 mg tablet 25 - 50 mg PO Q6H PRN ondansetron 4 mg tablet,disintegrating 4 mg PO Q8H PRN Patient Comments: DISSOLVE 1 TABLET ON THE TONGUE EVERY 8 HOURS NEEDED FOR NAUSEA OR VOMITING desvenlafaxine succinate 50 mg tablet extended release 24 hr 50 mg PO DAILY trazodone 50 mg tablet 25 mg PO HS PRN clonidine 0.1 mg/24 hr patch weekly 1 patch topical .weekly melatonin 3 mg tablet 3 mg PO HS PRN dextroamphetamine-amphetamine [Adderall XR] 20 mg capsule,extended release 24hr 20 mg PO DAILY dextroamphetamine-amphetamine [Adderall] 10 mg tablet 5 - 10 mg PO DAILY gabapentin 600 mg tablet 600 mg PO HS naltrexone 50 mg tablet 50 mg PO DAILY sodium chloride 1,000 mg tablet,soluble 1,000 mg PO TID Qty: 10 0RF potassium bicarb-citric acid 25 mEq tablet, effervescent 25 meq PO BID Qty: 4 0RF promethazine 50 mg suppository 50 mg WY Q6H PRNQty: 12 0RF Follow Up/Referrals: Deepthi Mc PA-C [Primary Care Provider] - Stand Alone [facility]
[2024-10-06] MEDS: KETOROLAC 30 MG/ML inj IVP (19:46)
[2024-10-06] MEDS: diphenhydrAMINE 50 MG/ML inj IVP (19:46)
[2024-10-06] MEDS: 0.9 % SODIUM CHLORIDE 1000 ml 1,000 ML IV (19:46)
[2024-10-06] MEDS: OLANZapine 5 MG/ML inj 10 MG IM (19:46)
--- OUTSIDE RECORDS SUMMARY | 2024-10-06 19:57 | XMS_ITS | Clinical Summary ---
Author Organization [place] Address [address] [place] [address] Care Team Providers Care Champagne Maker Name Role Phone Jesusita Deepthi Wilkins Primary Care Provider [phone] Allergies Active Allergy Reactions Criticality Noted Date [...] history of withdrawal seizures or withdrawal complications. [place] [facility] admission on 03/26/20 for alcohol withdrawal and discharged on 03/28/20. Patient is interested in quitting. Has previously tried clonidine and naltrexone. Patient with history of alcohol abuse. No history of withdrawal seizures or withdrawal complications. [place] [facility] admission on 03/26/20 for alcohol withdrawal and discharged on 03/28/20. Patient is interested in quitting. Has previously tried clonidine and naltrexone. Patient with history of alcohol abuse. No history of withdrawal seizures or withdrawal complications. [place] [facility] admission on 03/26/20 for alcohol withdrawal and [...] ER visit for cyclic vomiting; hospitalization at [facility] 05/03 (72 hr hold); 12/01 at [facility] History of Suicide Attempts: no Under the [...] ER visit for cyclic vomiting; hospitalization at [facility] 05/03 (72 hr hold); 12/01 at [facility] History of Suicide Attempts: no Under the [...] ER visit for cyclic vomiting; hospitalization at [facility] 05/03 (72 hr hold); 12/01 at [facility] History of Suicide Attempts: no Under the [...] ER visit for cyclic vomiting; hospitalization at [facility] 05/03 (72 hr hold); 12/01 at [facility] History of Suicide Attempts: no Under the [...] ER visit for cyclic vomiting; hospitalization at [facility] 05/03 (72 hr hold); 12/01 at [facility] History of Suicide Attempts: no Under the [...] ER visit for cyclic vomiting; hospitalization at [facility] 05/03 (72 hr hold); 12/01 at [facility] History of Suicide Attempts: no Under the [...] ER visit for cyclic vomiting; hospitalization at [facility] 05/03 (72 hr hold); 12/01 at [facility] History of Suicide Attempts: no Cannabis [...] Department Care Team Description 07/12/2024 10:10 PM AGRICULTURAL EDUCATION PROFESSOR - 07/13/2024 6:40 AM [facility] Emergency Department [facility] [place] [address] Jack Cornejo MD Mott, Sarah E, MD Nausea and vomiting, unspecified vomiting type Discharge Disposition: Home or Self Care 07/12/2024 Documentation Only [facility] [address] [facility] [address] [place] [address] Christine Ugarte Advance Care Planning 07/11/2024 3:18 PM AGRICULTURAL EDUCATION PROFESSOR - 07/11/2024 6:55 PM [facility] Emergency [facility] Emergency Department [address] [place] [address] Clinton Franklin DO Cyclic vomiting [...] in an abandoned building, in an overnight long term, or couch-surfing.) Yes 06/23/2024 Are you worried [...] Comments Blood Pressure 122/60 07/13/2024 6:16 AM AGRICULTURAL EDUCATION PROFESSOR Pulse 117 07/12/2024 10:01 PM AGRICULTURAL EDUCATION PROFESSOR Temperature 36.7 C (98.1 F) 07/12/2024 10:01 PM AGRICULTURAL EDUCATION PROFESSOR Respiratory Rate 30 07/12/2024 10:01 PM AGRICULTURAL EDUCATION PROFESSOR Oxygen Saturation 100% 07/12/2024 10:01 PM AGRICULTURAL EDUCATION PROFESSOR Inhaled Oxygen Concentration - - Weight 98.9 kg (218 lb) 07/12/2024 10:01 PM AGRICULTURAL EDUCATION PROFESSOR Height 182.9 cm (6') 07/11/2024 3:12 PM AGRICULTURAL EDUCATION PROFESSOR Body Mass Index 29.57 07/11/2024 3:12 PM AGRICULTURAL EDUCATION PROFESSOR Plan of Treatment Health Maintenance Due Date [...] REFLEX TO CULTURE STAT 07/13/2024 4:26 AM AGRICULTURAL EDUCATION PROFESSOR CBC WITH PLATELETS & DIFFERENTIAL STAT 07/13/2024 1:19 AM AGRICULTURAL EDUCATION PROFESSOR CBC WITH PLATELETS AND DIFFERENTIAL STAT 07/13/2024 1:19 AM AGRICULTURAL EDUCATION PROFESSOR LIPASE STAT 07/13/2024 1:19 AM AGRICULTURAL EDUCATION PROFESSOR HEPATIC FUNCTION PANEL STAT 07/13/2024 1:19 AM AGRICULTURAL EDUCATION PROFESSOR BASIC METABOLIC PANEL STAT 07/13/2024 1:19 AM AGRICULTURAL EDUCATION PROFESSOR CBC WITH PLATELETS & DIFFERENTIAL STAT 07/11/2024 3:25 PM AGRICULTURAL EDUCATION PROFESSOR RBC AND PLATELET MORPHOLOGY STAT 07/11/2024 3:25 PM AGRICULTURAL EDUCATION PROFESSOR CBC WITH PLATELETS AND DIFFERENTIAL STAT 07/11/2024 3:25 PM AGRICULTURAL EDUCATION PROFESSOR LIPASE STAT 07/11/2024 3:25 PM AGRICULTURAL EDUCATION PROFESSOR HEPATIC FUNCTION PANEL STAT 07/11/2024 3:25 PM AGRICULTURAL EDUCATION PROFESSOR BASIC METABOLIC PANEL STAT 07/11/2024 3:25 PM AGRICULTURAL EDUCATION PROFESSOR EXTRA PURPLE TOP TUBE STAT 07/11/2024 3:25 PM AGRICULTURAL EDUCATION PROFESSOR EXTRA GREEN TOP (LITHIUM HEPARIN) TUBE STAT 07/11/2024 3:25 PM AGRICULTURAL EDUCATION PROFESSOR EXTRA TUBE STAT 07/11/2024 3:25 PM AGRICULTURAL EDUCATION PROFESSOR from Last 3 Months Results * (ABNORMAL) UA with Microscopic reflex to Culture (07/13/2024 4:26 AM AGRICULTURAL EDUCATION PROFESSOR) Color Urine Light Yellow Colorless, Straw, Light Yellow, Yellow 07/13/2024 4:49 AM AGRICULTURAL EDUCATION PROFESSOR [facility] Appearance Urine Clear Clear 07/13/20 4:49 AM AGRICULTURAL EDUCATION PROFESSOR [facility] Glucose Urine Negative Negative mg/dL 07/13/2024 4:49 AM AGRICULTURAL EDUCATION PROFESSOR [facility] Bilirubin Urine Negative Negative 4:49 AM AGRICULTURAL EDUCATION PROFESSOR [facility] Ketones Urine 40(A) Negative mg/dL 07/13/2024 4:49 AM AGRICULTURAL EDUCATION PROFESSOR [facility] Specific [place] Urine 1.017 1.001 - 1.030 07/13/2024 4:49 AM AGRICULTURAL EDUCATION PROFESSOR [facility] Blood Urine Negative Negative 07/13/2024 4:49 AM AGRICULTURAL EDUCATION PROFESSOR [facility] pH Urine 6.0 5.0 - 7.0 07/13/2024 4:49 AM AGRICULTURAL EDUCATION PROFESSOR [facility] Protein Albumin Urine Negative Negative mg/dL 07/13/2024 4:49 AM AGRICULTURAL EDUCATION PROFESSOR [facility] Urobilinogen Urine <2.0 <2.0 mg/dL 07/13/2024 4:49 AM AGRICULTURAL EDUCATION PROFESSOR [facility] Nitrite Urine Negative Negative 07/13/2024 4:49 AM AGRICULTURAL EDUCATION PROFESSOR [facility] Leukocyte Esterase Urine Negative Negative 07/13/2024 4:49 AM AGRICULTURAL EDUCATION PROFESSOR [facility] RBC Urine 1 <=2 /HPF 07/13/2024 4:49 AM AGRICULTURAL EDUCATION PROFESSOR [facility] WBC Urine 1 <=5 /HPF 07/13/2024 4:49 AM AGRICULTURAL EDUCATION PROFESSOR [facility] Urine URINE SPECIMEN OBTAINED BY CLEAN CATCH PROCEDURE / Unknown Non-blood Collection / Unknown 07/13/2024 4:26 AM AGRICULTURAL EDUCATION PROFESSOR 07/13/2024 4:40 AM AGRICULTURAL EDUCATION PROFESSOR Narrative [facility] - 07/13/2024 4:49 AM AGRICULTURAL EDUCATION PROFESSOR Urine Culture not indicated us Jack Cornejo MD LAB - URINE ORDERABLES Final Res ult [facility] [address] [place] [address], [facility] * (ABNORMAL) CBC with platelets and differential (07/13/2024 1:19 AM [facility]) Only the most recent of2 resultswithin the time period is included. WBC Count 13.1(H) 4.0 - 11.0 10e3/uL 07/13/2024 1:27 AM AGRICULTURAL EDUCATION PROFESSOR [facility] RBC Count 4.08(L) 4.40 - 5.90 10e6/uL 07/13/2024 1:27 AM AGRICULTURAL EDUCATION PROFESSOR [facility] Hemoglobin 10.2(L) 13.3 - 17.7 g/dL 07/13/2024 1:27 AM AGRICULTURAL EDUCATION PROFESSOR [facility] Hematocrit 30.8(L) 40.0 - 53.0 % 07/13/2024 1:27 AM AGRICULTURAL EDUCATION PROFESSOR [facility] MCV 76(L) 78 - 100 fL 07/13/2024 1:27 AM AGRICULTURAL EDUCATION PROFESSOR [facility] MCH 25.0(L) 26.5 - 33.0 pg 07/13/2024 1:27 AM AGRICULTURAL EDUCATION PROFESSOR [facility] MCHC 33.1 31.5 - 36.5 g/dL 07/13/2024 1:27 AM AGRICULTURAL EDUCATION PROFESSOR [facility] RDW 17.6(H) 10.0 - 15.0 % 07/13/2024 1:27 AM AGRICULTURAL EDUCATION PROFESSOR [facility] Platelet Count 462(H) 150 - 450 10e3/uL 07/13/2024 1:27 AM AGRICULTURAL EDUCATION PROFESSOR [facility] % Neutrophils 73 % 07/13/2024 1:27 AM AGRICULTURAL EDUCATION PROFESSOR [facility] % Lymphocytes 16 % 07/13/2024 1:27 AM AGRICULTURAL EDUCATION PROFESSOR [facility] % Monocytes 11 % 07/13/2024 1:27 AM AGRICULTURAL EDUCATION PROFESSOR [facility] % Eosinophils 0 % 07/13/2024 1:27 AM AGRICULTURAL EDUCATION PROFESSOR [facility] % Basophils 0 % 07/13/2024 1:27 AM AGRICULTURAL EDUCATION PROFESSOR [facility] % Immature Granulocytes 0 % 07/13/2024 1:27 AM AGRICULTURAL EDUCATION PROFESSOR [facility] NRBCs per 100 WBC 0 <1 /100 024 1:27 AM AGRICULTURAL EDUCATION PROFESSOR [facility] Absolute Neutrophils 9.5(H) 1.6 - 8.3 10e3/uL 07/13/2024 1:27 AM AGRICULTURAL EDUCATION PROFESSOR [facility] Absolute Lymphocytes 2.1 0.8 - 5.3 10e3/uL 07/13/2024 1:27 AM AGRICULTURAL EDUCATION PROFESSOR [facility] Absolute Monocytes 1.4(H) 0.0 - 1.3 10e3/uL 07/13/2024 1:27 AM [facility] Absolute Eosinophils 0.1 0.0 - 0.7 10e3/uL 07/13/2024 1:27 AM [facility] Absolute Basophils 0.0 0.0 - 0.2 10e3/uL 07/13/2024 1:27 AM [facility] Absolute Immature Granulocytes 0.1 <=0.4 10e3/uL 07/13/2024 1:27 AM [facility] Absolute NRBCs 0.0 10e3/uL 07/13/2024 1:27 AM [facility] Blood BLOOD SPECIMEN / Unknown Venipuncture / Unknown 07/13/2024 1:19 AM AGRICULTURAL EDUCATION PROFESSOR 07/13/2024 1:23 AM AGRICULTURAL EDUCATION PROFESSOR Jack Cornejo MD LAB - BLOOD ORDERABLES Final Res ult [facility] [address] [place] [address], [facility] * Lipase (07/13/2024 1:19 AM AGRICULTURAL EDUCATION PROFESSOR) Only the most recent of2 resultswithin the time period is included. Pathologist [facility] Lipase 27 13 - 60 U/L 07/13/2024 3:10 AM [facility] Blood BLOOD SPECIMEN / Unknown Venipuncture / Unknown 07/13/2024 1:19 AM AGRICULTURAL EDUCATION PROFESSOR 07/13/2024 1:23 AM AGRICULTURAL EDUCATION PROFESSOR Jack Cornejo MD LAB - BLOOD ORDERABLES Final Res ult [facility] [address] [place] [address], [facility] * Hepatic function panel (07/13/2024 1:19 AM AGRICULTURAL EDUCATION PROFESSOR) Only the most recent of2 resultswithin the time period is included. Pathologist [facility] Protein Total 6.8 6.4 - 8.3 g/dL 07/13/2024 3:16 AM [facility] Albumin 4.4 3.5 - 5.2 g/dL 07/13/2024 3:16 AM [facility] Bilirubin Total 0.9 <=1.2 mg/dL 07/13/2024 3:16 AM [facility] Alkaline Phosphatase 78 40 - 150 U/L 07/13/2024 3:16 AM [facility] AST 07/13/2024 3:16 AM [facility] Comment:Unsatisfactory speci men - lipemic ALT 07/13/2024 3:16 AM [facility] Comment:Unsatisfactory speci men - lipemic Bilirubin Direct 07/13/20 3:16 AM [facility] Comment:Unsatisfactory speci men - lipemic Blood BLOOD SPECIMEN / Unknown Venipuncture / Unknown 07/13/2024 1:19 AM AGRICULTURAL EDUCATION PROFESSOR 07/13/2024 1:23 AM [facility] us Jack Cornejo MD LAB - BLOOD ORDERABLES Final Res ult [facility] [address] [facility] [place], [place] [address] * (ABNORMAL) Basic metabolic panel (07/13/2024 1:19 AM [facility]) Only the most recent of2 resultswithin the time period is included. Sodium 127(L) 135 - 145 mmol/L 07/13/2024 3:15 AM [facility] Potassium 4.4 3.4 - 5.3 mmol/L 07/13/2024 3:15 AM [facility] Chloride 91(L) 98 - 107 mmol/L 07/13/2024 3:15 AM [facility] Carbon Dioxide (CO2) 23 22 - 29 mmol/L 07/13/2024 3:15 AM [facility] Anion Gap 13 7 - 15 mmol/L 07/13/2024 3:15 AM [facility] Urea Nitrogen 22.0(H) 6.0 - 20.0 mg/dL 07/13/2024 3:15 AM [facility] Creatinine 0.92 0.67 - 1.17 mg/dL 07/13/2024 3:15 AM [facility] GFR Estimate >90 >60 mL/min/1.7 3m2 07/13/2024 3:15 AM AGRICULTURAL EDUCATION PROFESSOR [facility] Comment:eGFR calculated us2020 CKD-EPI equation. Calcium 9.6 8.8 - 10.4 mg/dL 07/13/2024 3:15 AM AGRICULTURAL EDUCATION PROFESSOR [facility] Comment:Reference intervals for this test were updated on 02/03/2024 to reflect our healthy population more accurately. There may be differences in the flagging of prior results with similar values performed with this method. Those prior results can be interpreted in the context of the updated reference intervals. Glucose 91 70 - 99 mg/dL 07/13/2024 3:15 AM AGRICULTURAL EDUCATION PROFESSOR [facility] Blood BLOOD SPECIMEN / Unknown Venipuncture / Unknown 07/13/2024 1:19 AM AGRICULTURAL EDUCATION PROFESSOR 07/13/2024 1:23 AM AGRICULTURAL EDUCATION PROFESSOR Jack Cornejo MD LAB - BLOOD ORDERABLES Final Res ult Performing Organization Address City/[facility]/ZIP Co de Phone Number [facility] [address] [place] [address], [facility] * Extra Purple Top Tube (07/11/2024 3:25 PM AGRICULTURAL EDUCATION PROFESSOR) Hold Specimen [facility] 07/11/2024 4:32 PM AGRICULTURAL EDUCATION PROFESSOR [facility] Blood VENOUS LINE / Unknown Venipuncture / Unknown 07/11/2024 3:25 PM AGRICULTURAL EDUCATION PROFESSOR 07/11/2024 3:30 PM AGRICULTURAL EDUCATION PROFESSOR Afshin Chisholm MD LAB - BLOOD ORDERABLES Final Result [facility] [address] [place] [address], [facility] * Extra Green Top (Sawyer Heparin) Tube (07/11/2024 3:25 PM AGRICULTURAL EDUCATION PROFESSOR) Hold Specimen [facility] 07/11/2024 4:32 PM AGRICULTURAL EDUCATION PROFESSOR [facility] Blood VENOUS LINE / Unknown Venipuncture / Unknown 07/11/2024 3:25 PM AGRICULTURAL EDUCATION PROFESSOR 07/11/2024 3:30 PM AGRICULTURAL EDUCATION PROFESSOR us Afshin Chisholm MD LAB - BLOOD ORDERABLES Final Result Performing Organization Address [facility] Co de Phone Number [facility] [address] [place], [place] [address] * RBC and Platelet Morphology (07/11/2024 3:25 PM AGRICULTURAL EDUCATION PROFESSOR) RBC Morphology Confirmed RBC Indices 07/11/2024 4:32 PM AGRICULTURAL EDUCATION PROFESSOR [facility] Platelet Assessment Automated Count Confirmed. Platelet morphology is normal. Automated Count Confirmed. Platelet morphology is normal. ALBERTO 07/11/2024 4:32 PM AGRICULTURAL EDUCATION PROFESSOR [facility] Blood VENOUS LINE / Unknown Venipuncture / Unknown 07/11/2024 3:25 PM AGRICULTURAL EDUCATION PROFESSOR 07/11/2024 3:30 PM AGRICULTURAL EDUCATION PROFESSOR Clinton Franklin DO LAB - BLOOD ORDERABLES Final R esult Performing Organization Address [facility] Co de Phone Number [facility] [address] [place] [address], [facility] from Last 3 Months [facility] [employer] [place] [facility] Advance Directives For more information, please contact: [phone] Documents on File Type Date Recorded Patient Form Coverer Expl anation Advance Directives and Living Will [...] Second Alternate Health Care Agent Care Teams Champagne Maker Relationship Specialty Start Date End Date Deepthi Mc [address] [place] [address] PCP - General Physician Antique Refinisher 06/15/23
--- OUTSIDE RECORDS SUMMARY | 2024-10-06 19:57 | XMS_ITS ---
Author Organization Unknown Address [address] [place], [place] [id number] Phone Care Team Providers Care Windows Software Engineer Name Role Phone CLAIRE TEJADA Attending Unavailable [...] Code Sys tem Cyclical vomiting syndrome 10/28/2023 [id number] S NOMED-CT Personal Care Team Section Performer Name Performer Role Active Date Inactive Da te
--- OUTSIDE RECORDS SUMMARY | 2024-10-06 19:57 | XMS_ITS | Clinical Summary ---
Author Organization [facility] Address [address] [place] [address] Care Team Providers Care Furnace Filler Name Role Phone Deepthi Mc Primary Care [...] if needed. Active cloNIDine 0.1 mg/24 hr ([id number]) 0.1 mg/24 hr patchIndications:A nxiety,ETOH abuse APPLY [...] ER visit for cyclic vomiting; hospitalization at [facility] 05/03 (72 hr hold); 12/01 at [facility] History of Suicide Attempts: no Cannabis [...] Description 09/27/2024 2:00 PM CDT Office Visit [facility] [address] [place] [address] Deepthi Mc PA Medication Management (Pristiq & Cymbalta - is done with the pristiq but has not started the cymbalta yet) 09/27/2024 Travel 09/22/2024 Refill [facility] [address] [facility] [place] [address] Deepthi Mc PA Refill Request (Refill request ) 09/06/2024 2:40 PM AUTOMATIC MOLD SANDER Office Visit [facility] [address] [place] [address] Deepthi Mc PA Medication Management 09/06/2024 Travel 09/01/2024 2:00 PM AUTOMATIC MOLD SANDER Office Visit [facility] [address] [place] [address] Alanna Erwin PA Consult (Conductive hearing loss of right ear with unrestricted hearing of left ear /Recurrent acute suppurative otitis media without spontaneous rupture of left tympanic membrane ) 09/01/2024 Travel 08/17/2024 Telephone [facility] [address] [place] [address] Deepthi Mc PA Questions (need a new prescriptions for all medication ) 08/09/2024 2:00 PM AUTOMATIC MOLD SANDER Office Visit [facility] [address] [place] [address] Deepthi Mc PA Ear Problem (Check both ears); Medication Management (Discuss restarting Adderall and ativan) 08/09/2024 Travel 07/08/2024 Telephone [facility] [address] [place] [address] Deepthi Mc PA Medication Management (Adderall ) from Last 3 Months Immunizations Immunization Administration Dates Next Due COVID-19 vaccine ([employer] 30mcg/0.3mL) 12YO+ MINH-SUCROSE PF, MDV 11/28/2021 COVID-19 vaccine ([employer] 30mcg/0.3mL) PF, MDV 11/29/2020,11/08/2020 [id number] 1995 [...] on file Legal Sex Male 5:18 AM AUTOMATIC MOLD SANDER Gender Identity Not on file Sexual Orientation [...] Description 10/25/2024 2:40 PM CDT Office Visit [facility] [address] [place] [address] Deepthi Mc PA [address] [place] [address] Health Maintenance Due Date Last Done Comments [...] AM CDT) ANTI HIV 1/2 Non-reacti ve [facility] Blood specimen (specimen) BLOOD SPECIMEN / Unknown 10/15/2013 9:28 AM CDT 10/15/2013 9:13 AM CDT us Luis Jarrett MD SEND OUTS Final Res ult [facility] [place]NAL ZIP [address] [place], [place] [id number] from Last 3 Months or Most Recently Relevant to Health Maintenance [place] [address] [place] [address] Advance Directives * Full Code (Latest Code Status on File) Date Activated Date Inactivated Comments 05/15/2014 4:32 PM 05/18/2014 8:52 PM * Full Code Date Activated Date Inactivated Comments 05/02/2014 7:01 PM 05/07/2014 1:56 PM Care Teams Furnace Filler Relationship Specialty Start Date End Date Deep[place] [address] PCP - General Family Practice 03/04/11
--- OUTSIDE RECORDS SUMMARY | 2024-10-06 19:57 | XMS_ITS | Clinical Summary ---
Author Organization [facility] Address [address], [place] [address] Care Team Providers Care Fish Hatchery Inspector Name Role Phone Deepthi Mc PA-C Primary Care Provider [phone] Source Comments You are receiving this document as you are listed as the primary care provider,follow-up provider, or the patient has been referred to you for consultation.This is in compliance with the Medicare and[facility] Hospital[facility] EHR Incentive Program,which states Providers who transition their patient to another setting of careor provider of care or refers their patient to another provider of care shouldprovide summary care record for each transition of care or referral. [facility] Allergies No known active allergies Medications ondansetron [...] history of withdrawal seizures or withdrawal complications. [facility] admission on 03/26/20 for alcohol withdrawal and discharged on 03/28/20. Patient is interested in quitting. Has previously tried clonidine and naltrexone. Patient with history of alcohol abuse. No history of withdrawal seizures or withdrawal complications. [facility] admission on 03/26/20 for alcohol withdrawal and discharged on 03/28/20. Patient is interested in quitting. Has previously tried clonidine and naltrexone. Persistent sleep disorder 10/17/2016 Insomnia 09/19/2016 Cyclical vomiting 04/04/2016 Social anxiety disorder 02/26/2016 PTSD (post-traumatic stress disorder) 05/16/2014 Generalized anxiety disorder 12/03/2013 Overview (12/26/2020): Under the care of Dr. Rafat Falcon for mental health care. [facility] . Initial intake 12/10/12 Previous Medication [...] ER visit for cyclic vomiting; hospitalization at [facility] 05/03 (72 hr hold); 12/01 at [facility] History of Suicide Attempts: no Under the care of Dr. Rafat Falcon for mental health care. [facility] . Initial intake 12/10/12 Previous Medication [...] ER visit for cyclic vomiting; hospitalization at [facility] 05/03 (72 hr hold); 12/01 at [facility] History of Suicide Attempts: no Under the care of Dr. Rafat Falcon for mental health care. [facility] . Initial intake 12/10/12 Previous Medication [...] ER visit for cyclic vomiting; hospitalization at [facility] 05/03 (72 hr hold); 12/01 at [facility] History of Suicide Attempts: no Asthma [...] Comments Blood Pressure 165/84 08/11/2021 5:23 PM TRADE MARK EXAMINER Pulse 77 08/11/2021 5:23 PM TRADE MARK EXAMINER Temperature 36.4 C (97.5 F) 08/11/2021 5:23 PM TRADE MARK EXAMINER Respiratory Rate 20 08/11/2021 5:23 PM TRADE MARK EXAMINER Oxygen Saturation 100% 08/11/2021 5:23 PM TRADE MARK EXAMINER Inhaled Oxygen Concentration - - Weight 104.3 kg (230 lb) 08/11/2021 5:26 PM TRADE MARK EXAMINER Height 182.9 cm (6') 08/11/2021 5:26 PM TRADE MARK EXAMINER Body Mass Index 31.19 08/11/2021 5:26 PM TRADE MARK EXAMINER Plan of Treatment Health Maintenance Due Date [...] patient's age to complete this topic Insurance [facility] Care Teams Fish Hatchery Inspector Relationship Specialty Start Date End Date Deepthi Mc [place] [place] [address] PCP - General Physician Cartridge Feeder 08/15/24
--- OUTSIDE RECORDS SUMMARY | 2024-10-06 19:58 | XMS_ITS | Encounter Summary ---
Author Organization [place] Address [facility] [place] [address] Care Team Providers Care Survey Coordinator Name Role Phone Rajan Mcpeace Wilkins Primary Care Provider [phone] Reason for Visit * Reason Onset Date Comments MH/CD Inpatient 12/08/2013 Encounter Details Date Type Department Care Team ([facility] st Contact Info) Description 12/08/2013 Telephone [facility] Behavioral Health Intake [address] [place] [id number] Generic, Behavioral Intake, MH/CD Inpatient Social History [...] 12/08/2013 11:23 AM CDT S: Katarzyna from [facility] calling requesting Psych bed for pt. # [phone] B: Pt was BIB mother to [facility] [place] [facility] 12/06/13 for self induced vomiting; OCD [...] have not pursued commitment at this time. [facility] will be unable to take him at this time. If commitment is supported by critical access hospital, I invited Katarzyna to call back and check on bed availability. documented in this encounter Plan of Treatment Not on file documented as of this encounter Visit Diagnoses Not on filedocumented in this encounter Additional Health Concerns Infection Onset Date Last Indicated Resolved Time Rule Out C-difficile 08/13/2023 08/13/2023 024 8:43 AM PLC PROGRAMMER documented as of this encounter Care Teams Survey Coordinator Relationship Specialty Start Date End Date Deepthi Mc [address] [place] [address] PCP - General Physician Nub Card Tender 06/15/23 documented as of this encounter
--- OUTSIDE RECORDS SUMMARY | 2024-10-06 19:59 | XMS_ITS | Clinical Summary ---
Author Organization [facility] Address [address] [place] [address] Care Team Providers Care Wood Engraver Name Role Phone Elsewhere, Pcp Primary Care Provider Unavailabl e Source Comments Patient records contain information from all sites at [facility]. For routine questions regarding patient records, call [phone] during business hours, M-F 8:00 AM - 5:00 PM Central Time. Record requests for emergency care only can be directed to [phone] at any time.[facility] Allergies Active Allergy Reactions Criticality Noted Date [...] history of withdrawal seizures or withdrawal complications. [place] admission on 03/26/20 for alcohol withdrawal and [...] ER visit for cyclic vomiting; hospitalization at [facility] 05/03 (72 hr hold); [facility] e alcohol) 750 ml straight Vodka Daily [place] [employer] Answer Date Recorded In the past 12 months has e [employer], [employer], oil, or water [employer] threatened to shut off services in your [...] your living situation today? I [facility] a [facility] place to live 03/26/2024 Sex and Gender Information Value Date Recorded Sex Assigned at Not on file Legal Sex Male 5:[address] [employer] Gender Identity Not on file Sexual Orientation [...] Daniel M.D. LAB BLOOD ADD-ON Final Result [facility] [address] [place] [address], [place] [facility] [address] [place] [address] from Last 3 Months or Most Recently Relevant to Health Maintenance Insurance CARE Advance Directives For more information, please contact: [phone] * Full Code (Latest Code Status on [...] Due to: Not medically appropriate Care Teams Wood Engraver Relationship Specialty Start Date End Date Elsewhere, Pcp PCP - General Internal Medicine 03/26/24
[2024-10-06] MEDS: LORazepam 2 MG/ML inj 0.5 MG IV (20:50)
== END 2024-10-06 21:02 | disposition home or self-care (01) ==
PROVIDERS: Emergency Provider Emergency Medicine Emergency Medical Services; PCP Physician Assistant Medical
DX: F12.188 Cannabis abuse with other cannabis-induced disorder (principal)
CPT/HCPCS: 94761; 96372; 96374; 96375; 99284; J1200; J1885; J2060; J7030

== ENCOUNTER 2024-11-02 15:00 | Emergency (ER) | payer BC, SELFPAY ==
[2024-11-02 15:06] VITALS: BP 199/81; PULSE 120; RESP 20; TEMP 35.9; O2SAT 98; BMI 30.7
--- OUTSIDE RECORDS SUMMARY | 2024-11-02 15:34 | XMS_ITS ---
Author Organization Unknown Address [address] [place], [place] [id number] Phone Care Team Providers Care Top Lifter Name Role Phone CLAIRE TEJADA Attending Unavailable [...] Code Sys tem Cyclical vomiting syndrome 10/28/2023 [id number] S NOMED-CT Personal Care Team Section Performer Name Performer Role Active Date Inactive Da te
--- OUTSIDE RECORDS SUMMARY | 2024-11-02 15:34 | XMS_ITS | Encounter Summary ---
Author Organization [facility] Address [address] [place] [id number] Care Team Providers Care Hot Die Press Feeder Name Role Phone Elsewhere, Pcp Primary Care Provider Unavailabl e Reason for Visit * Reason Comments Vomiting Encounter Details Date Type Department Care Team ([facility] st Contact Info) Description 10/08/2024 4:05 PM CDT - 10/08/2024 11:18 PM CDT Emergency [facility] Emergency Department [address] [place] [address] Albert Pitts M.D., M.H.P.E. [address] [place] [id number] Nausea And Vomiting (Primary Dx); Cyclical Vomiting Syndrome Unrelated To Migraine; Hypokalemia Discharge Disposition: Home or Self Care Social History Tobacco Use Types Packs/Day Years Used Date Smoking Tobacco: Every Day Cigarettes 0.5 8 Smokeless Tobacco: Never Comments:x 5 daily Alcohol Use Standard Drinks/Week Comments Yes 5 (1 standard drink = 0.6 oz pur e alcohol) 750 ml straight Vodka Daily [facility] Utilities Answer Date Recorded In the past 12 months has e [employer], gas, oil, or water [employer] threatened to shut off services in your [...] your living situation today? [facility] to live 03/26/2024 Sex and Gender Information Value Date Recorded Sex Assigned at Not on file Legal Sex Male 5:32 PM [employer] Gender Identity Not on file Sexual Orientation Not on file documented as of this encounter Last Filed Vital Signs Vital Sign Reading Time Taken Comments Blood Pressure 136/87 10/08/2024 11:08 PM CDT Pulse 90 10/08/2024 11:08 PM CDT Temperature 36.7 C (98.1 F) 10/08/2024 11:11 PM CDT Respiratory Rate 16 10/08/2024 6:31 PM CDT Oxygen Saturation 97% 10/08/2024 11: 08 PM CDT Inhaled Oxygen Concentration - - Weight 99.2 kg (218 lb 11.1 oz) 10/08/2024 4:08 PM CDT Height 188 cm (6' 2) 10/08/2024 4:08 PM CDT Body Mass Index 28.08 10/08/2024 4:08 PM CDT documented in this encounter Discharge Instructions * Discharge Instructions* Seferino Christianson M.D. - 10/08/2024 10:52 PM CDT You were seen in the emergency department due to nausea and vomiting, in the setting of cyclic vomiting syndrome. You were found to have low potassium levels in the emergency department. Potassium supplementation has been administered. Please try to eat more bananas and/or tomatoes at home for the next few days. Please continue to take your nausea/vomiting medications as previously directed. A new prescriptionfor diazepam (Valium) has been sent to the [facility] pharmacy. Please take this medication as needed every 8 hours in order to control anxiety, nausea, and/or vomiting. Please cut down on your alcohol and marijuana usage. * Attachments The following attachments cannot be sent through Care Everywhere. * Cyclic Vomiting Syndrome Adult (Malagasy) * Nausea and Vomiting Adult [id number] (Malagasy) * Hypokalemia (Malagasy) documented in this encounter Medications at Time of Discharge LORazepam (Ativan) 1 mg tablet Take 1 mg by mouth at bedtime as needed. 09/27/2024 ramelteon (Rozerem) 8 mg tablet Take 8 mg by mouth at bedtime as needed. 08/23/2024 amphetamine-dextro amphetamine (ADDERALL XR) 25 mg 24 hr capsule Take 1 capsule by mouth daily. 06/03/2023 cloNIDine (Catapres-TTS) 0.1 mg/[address] 1-2 patches on the skin once a week. 4 patch 03/30/2024 desvenlafaxine (Pristiq) 50 mg 24 hr tablet Take 1 tablet (50 mg total) by mouth daily. 3 tablet 03/30/2024 diazePAM (Valium) 5 mg tablet Take 1 tablet (5 mg total) by mouth every 8 (eight) hours as needed (Anxiety and/or nausea) for up to 3 doses. 3 tablet 10/08/2024 hydrOXYzine (VistariL) 25 mg capsule Take 1 capsule (25 mg total) by mouth every 6 (six) hours as needed for anxiety. 12 capsule 03/30/2024 lisinopriL 10 mg tablet Take 1 tablet (10 mg total) by mouth daily. 3 tablet 03/30/2024 LORazepam (Ativan) 0.5 mg tablet Take 0.5 mg by mouth 3 (three) times a day as needed (panic attack). nicotine (NICODERM CQ) 21 mg/[address] 1 patch on the skin daily. 10/22/2023 ondansetron (ZOFRAN) 4 mg tablet Take 1 tablet (4 mg total) by mouth every 6 (six) hours as needed for nausea. 20 tablet 11/16/2023 vit27,calcium/iron /FA (multivitamin/mine ral-) tablet Take 1 tablet by mouth daily. 10/01/2023 prochlorperazine (COMPAZINE) 25 mg suppository Insert 25 mg into the rectum every 12 (twelve) hours as needed for vomiting. 12/03/2021 traZODone (DESYREL) 50 mg tablet Take 25 mg by mouth at bedtime as needed for sleep. 10/12/2020 documented as of this encounter ED Notes * Albert Pitts M.D., M.H.P.E. - 10/08/2024 11:11 PM CDT I have personally seen and examined this patient. I have fully participated in the care of this patient. I have reviewed all clinical information including history, physical exam, orders, and plan. Iakelseyee with the note of the resident. 1. Nausea and vomiting 2. Alcohol use disorder 3. History of alcohol withdrawal 4. History of cyclic vomiting syndrome The patient is a 29-year-old male with intermittent marijuana use with history of cyclic vomiting syndrome in this setting who is also known to have history of asthma, hypertension, prolonged QTC, alcohol use disorder and mild withdrawal without seizures. He presents in the setting of recent life stressors with marijuana use and intermittent drinking. Last marijuana use was proximally three daysago. The patient has been experiencing several days of persistent nausea and vomiting. He has sought evaluation in another hospital's emergency department within the past 48 hours, experiencing improvement with therapy, to have symptoms recur the following morning. No associated fevers abdominal pain. Denies trauma or overt headache. The patient reports significant life stressors including his sister being diagnosed with a brain tumor. On examination the patient is generally well-appearing and nontoxic. Lungs are clear to auscultation. Heart tones are normal, regular rhythm with normal rate. Abdomen is soft, nondistended, mild tenderness to palpation in the epigastrium without rebound or guarding. No overt peritoneal signs. Neurologic examination grossly nonfocal. Differential diagnosis includes nausea and vomiting secondary to acute exacerbation of cyclic vomiting syndrome, cannabis hyperemesis syndrome, pancreatitis, hepatopathy or biliary process, among others. Low suspicion for acute surgical intra-abdominal processes such as appendicitis, cholecystitis, bowel obstruction, volvulus, among others. Metabolic disarray is considered. We plan to obtain basic laboratory studies, abdominal labs including lipase and hepatic function panel, as well as electrocardiogram given history of prolonged QTC. We will plan to proceed with IV fluids, antiemetic, consider benzodiazepine. Avoid QTC prolonging medications. Addendum: QTC borderline at 479 milliseconds. He is noted to be hypokalemic at 2.6 and this will berepleted. He does feel that he can tolerate oral repletion with tablet. He feels substantially improved following diazepam and metoclopramide. We did discuss options including observation versus discharge to home. I do believe given his current clinical status that he can safely discharge. I believe it is reasonable to provide a small amount of diazepam to utilize as ongoing antiemetic as well asgiven consideration of mild alcohol withdrawal, for which the patient expresses concern. No overt evidence of alcohol withdrawal at this time. The patient is comfortable with home going and discharged at this time. Return instructions were discussed. Discharged in stable and improved condition. Final Diagnoses: as of 10/08/24 2311 Nausea And Vomiting Cyclical Vomiting Syndrome Unrelated To Migraine Hypokalemia Albert Pitts M.D., M.H.P.E. 10/09/24 0241 Albert Pitts M.D., M.H.P.E. 10/09/24 1536 * Seferino Christianson M.D. - 10/08/2024 10:55 PM CDT Correct grammar without replacing the medical terminology or making changes to the structure of this medical note: EMERGENCY DEPARTMENT EVALUATION Vomiting Claudoi Sapp is a 29-year-old male with a history of asthma, hypertension, prolonged QT, alcohol withdrawal, and cyclic vomiting syndrome in the setting of marijuana use who presents to the emergency department today due to persistent nausea and vomiting. The patient endorses considerable stress in his life, as his sister was recently diagnosed with a brain tumor. He has started drinking again and has also been using marijuana. The patient was consuming alcohol for approximately five days, drinking 750 cc of hard liquor daily. His last alcohol intake was three days ago. For the past few days, the patient has been experiencing persistent nausea and vomiting. The emesisis nonbloody and nonbilious. He is unable to estimate the number of times he has vomited, stating that it occurs almost constantly. He also describes some mild abdominal pain but does not endorse anychest pain. The patient has experienced alcohol withdrawal symptoms in the past but does not report any historyof alcohol withdrawal seizures. He typically experiences nausea and vomiting with alcohol withdrawal. These symptoms overlap with his current nausea and vomiting, but he does not feel that he is currently in alcohol withdrawal. In the past, his symptoms have improved with diazepam. He was recently seen in the emergency department at another hospital, where he was given medications for symptomatic relief. He initially felt improved, but his symptoms have since returned. Despite the significant stress in his life, the patient does not endorse any suicidal ideation or self-harm. EXAM The patient is a young adult male who appears uncomfortable due to nausea, vomiting, and abdominal pain. He is afebrile. Heart rate is in the 90s to 100s. Blood pressure is in the 130s/90s. The patient is breathing comfortably on room air, saturating at 100%. The patient is awake, alert, and answering questions appropriately. He does not appear to be acutely intoxicated. Mucous membranes are dry. On cardiac exam, he has normal heart sounds. Lung sounds are also normal. He is speaking in full sentences. On abdominal examination, the abdomen is soft and nondistended. Mild tenderness to palpation is appreciated diffusely, primarily in the epigastric region. There is no rebound or guarding. ASSESSMENT & PLAN In summary, this is a 29-year-old gentleman presenting to the emergency department with persistent nausea and vomiting in the setting of cyclic vomiting syndrome and marijuana use. The patient appears dehydrated on exam; otherwise, the exam is unremarkable. I suspect the patient's nausea and vomiting are secondary to his cyclic vomiting syndrome and recent marijuana use. He does not appear to be acutely intoxicated. Although alcohol withdrawal can also present with similar symptoms, I find this less likely given the temporal pattern of his alcohol use. We will still obtain CIWA scores. In the emergency department, we will check blood work to evaluate for any metabolic derangements. We will also assess liver function, pancreatitis, alcohol level, and anemia. The patient's abdominal exam is mostly reassuring. I do not have concerns for appendicitis, cholecystitis, bowel obstruction, bowel perforation, malrotation, or intussusception. Imaging studies would not be necessary. We will provide medications for symptomatic control and IV fluids while awaiting workup results. Given that his symptoms have responded to diazepam in the past, we will administer diazepam here. REASSESSMENT - 23:00 The patient's repeat ECG demonstrates a QTc in the 470s, so he has continued to receive metoclopramide for symptomatic management. He also reports improvement after diazepam. Blood work has revealed significant hypokalemia at 2.6. Potassium chloride, 80 mEq, has been administered. The patient has also received 1 L of IV fluids. Most recent CIWA score: 6. Shared decision-making was performed regarding disposition. We discussed outpatient management versus overnight observation in the emergency department. The patient prefers to be discharged at this time. He has been given a prescription for diazepam for outpatient use, which may help manage both alcohol withdrawal and emesis. He already has antiemetics prescribed. The patient is interested in rehabilitation and will attempt to pursue this in the outpatient setting. He is making rational decisions and does not appear intoxicated. There is no need for psychiatric evaluation in the emergency department. The patient is comfortable with the plan for outpatient management. DIAGNOSTIC STUDIES LABORATORY RESULTS: Abnormal Labs Reviewed BASIC METABOLIC PANEL, S/P - Abnormal; Notable for the following components: Result Value Potassium, P 2.6 (*) Sodium, P 132 (*) Chloride, P 83 (*) Bicarbonate, P 34 (*) All other components within normal limits HEPATIC FUNCTION PANEL, S - Abnormal; Notable for the following components: Bilirubin, Total, S 1.5 (*) Bilirubin, Direct, S 0.4 (*) Albumin, S 5.1 (*) All other components within normal limits LIPASE, S/P - Abnormal; Notable for the following components: Lipase, S 92 (*) All other components within normal limits CBC WITH DIFFERENTIAL, B - Abnormal; Notable for the following components: Hemoglobin 13.0 (*) Erythrocytes 6.10 (*) MCV 67.9 (*) RBC Distrib Width 21.9 (*) Platelet Count 497 (*) Leukocytes 9.9 (*) All other components within normal limits SPSMA RESULT - Abnormal; Notable for the following components: Monocytes 14 (*) All other components within normal limits IMAGING STUDIES: No orders to display Final Diagnoses: as of 10/08/242257 Nausea And Vomiting Cyclical Vomiting Syndrome Unrelated To Migraine Hypokalemia Dr. Seferino Christianson (EM PGY3) Phone: [phone] Pager: [phone] Seferino Christianson M.D. Resident 10/09/24 9567 * Beth Keith, RFlaviaN. - 10/08/2024 9:24 PM CDT Patient states that he does not have interest in a detox center/CRU at this time. He does not have a history of complicated withdrawals. Patient is A&Ox3 He scored low risk for for SI. Vitals are stable. Beth Keith, RFlaviaN. 10/08/242130 * Jennifer Lopez R.NFlavia - 10/08/2024 4:44 PM CDT Patient arrives by private vehicle with his mother. He reports 4 days of vomiting with a history ofcyclic vomiting syndrome. He says he believes this was triggered by drinking alcohol 4 days ago andhe has been vomiting since then. He has tried his prescription compazine without improvement. He says the usual medications that help are Zyprexa, benadryl, and Toradol. He does have a history of long QT noted in his chart. After patient returned to waiting room, his mother pulled the RN aside to confide that she believe the patient has been drinking ETOH and smoking weed again and may be psychotic. She wants him admitted to detox or [facility] because she feels he is unsafe at home. Jennifer Lopez R.N. 10/08/24 1651 documented in this encounter Plan of Treatment Not on file documented as of this encounter Procedures Procedure Name Priority Date/Time Associated Diagnosis Comments ETHANOL, S STAT 10/08/2024 4:52 PM CDT HEPATIC FUNCTION PANEL, S STAT 10/08/2024 4:52 PM CDT SPSMA RESULT STAT 10/08/2024 4:52 PM CDT CBC WITH DIFFERENTIAL, B STAT 10/08/2024 4:52 PM CDT MAGNESIUM, S STAT 10/08/2024 4:52 PM CDT LIPASE, S/P STAT 10/08/2024 4:52 PM CDT BASIC METABOLIC PANEL, S/P STAT 10/08/2024 4:52 PM CDT ECG STAT 10/08/2024 4:22 PM CDT documented in this encounter Results * (ABNORMAL) Morphology Eval (special smear) (10/08/2024 4:52 PM CDT) Neutrophilic Segs and Bands 60 50 - 75 % 10/08/2024 6:02 PM CDT DHPM Lymphocytes 26 18 - 42 % 10/08/2024 6:02 PM CDT DH[facility] Monocytes 14(H) 2 - 11 % 10/08/2024 6:02 PM CDT PM Manual Absolute Neutrophil Count 5.94 1.56 - 6.45 x10(9)/L 10/08/2024 6:02 PM CDT PM Comment: ----ADDITIONAL INFORMATION---- The manual absolute neutrophil count is derived from a manual differential count and therefore is not exactly comparable to the automated absolute neutrophil count. Interpretation See Comment 6:02 PM CDT PM Comment: Microcytosis of uncertain significance. Suggest correlation with clinical history and iron studies. If further hemoglobinopathy testing is desired, please order a Thalassemia and Hemoglobinopathy Evaluation. Reviewed by: Lucy 10/08/2024 6:02 PM CDT [facility] Blood 10/08/2024 4:52 PM CDT 10/08/2024 5:09 PM CDT Christian Landa P.A.-C. LAB BLOOD ADD-ON Final Res ult Performing Organization Address City/[facility]/ZIP Co de Phone Number [facility] [address] [place] [address] * Ethanol Level, Serum (10/08/2024 4:52 PM CDT) [facility] Ethanol, S <10 <10 mg/dL 10/08/2024 5:5 5 PM CDT DTL Blood (Blood, Venous) 10/08/2024 4:52 PM CDT 10/08/2024 5:35 PM CDT Christian Landa P.A.-C. LAB BLOOD NON ADD-ON Final Result Performing Organization Address City/[facility]/ZIP Co de Phone Number [facility] [address] [place] [address], [facility] 200 [place] [address] * Magnesium (10/08/2024 4:52 PM CDT) Pathologist [facility] Magnesium, P 2.3 1.7 - 2.3 mg/dL 10/08/2024 5:31 PM CDT [facility] Blood (Blood, Venous) 10/08/2024 4:52 PM CDT 10/08/2024 5:10 PM CDT us Christian Landa P.A.-C. LAB BLOOD ADD-ON Final Res ult [facility] [address] [place] [address], [place] STMA [facility] [address] [place] [address] * (ABNORMAL) CBC with Differential, Blood (10/08/2024 4:52 PM CDT) Hemoglobin 13.0(L) 13.2 - 16.6 g/dL 10/08/2024 5:14 PM CDT [facility] Hematocrit 41.4 38.3 - 48.6 % 10/08/2024 5:58 PM CDT [facility] Erythrocytes 6.10(H) 4.35 - 5.65 x10(12)/L 10/08/2024 5:58 PM CDT [facility] MCV 67.9(L) 78.2 - 97.9 fL 10/08/2024 5:58 PM CDT [facility] RBC Distrib Width 21.9(H) 11.8 - 14.5 % 10/08/2024 5:14 PM CDT [facility] Platelet Count 497(H) 135 - 317 x10(9)/L 10/08/2024 5:14 PM CDT [facility] Leukocytes 9.9(H) 3.4 - 9.6 x10(9)/L 10/08/2024 5:14 PM CDT [facility] Neutrophils See Comment 1.56 - 6.45 x10(9)/L 10/08/2024 6:01 PM CDT [facility] Comment:Auto-diff results no t valid. See manual differential. Blood (Blood, Venous) 10/08/2024 4:52 PM CDT 10/08/2024 5:09 PM CDT us Christian Landa P.A.-C. LAB BLOOD ADD-ON Final Res ult Performing Organization Address City/[facility]/ZIP Co de Phone Number [facility] [address] [place] [address], [place] [facility] [address] [place] [address] DHPM [facility] [address] [place] [address] * (ABNORMAL) Lipase (10/08/2024 4:52 PM CDT) Lipase, S 92(H) 13 - 60 U/L 10/08/2024 5: 55 PM CDT DTL Blood (Blood, Venous) 10/08/2024 4:52 PM CDT 10/08/2024 5:35 PM CDT Christian Landa P.A.-C. LAB BLOOD ADD-ON Final Res ult Performing Organization Address City/[facility]/ZIP Co de Phone Number [facility] [address] [place] [address], [place] DTL [facility] [address] [place] [address] * (ABNORMAL) Hepatic Function Panel (10/08/2024 4:52 PM CDT) Bilirubin, Total, S 1.5(H) 0.0 - 1.2 mg/dL 10/08/2024 5:55 PM CDT DTL Bilirubin, Direct, S 0.4(H) 0.0 - 0.3 mg/dL 10/08/2024 5:55 PM CDT DTL Aspartate Aminotransferase (AST), S 26 8 - 48 U/L 10/08/2024 5:55 PM CDT DTL Alanine Aminotransferase (ALT), S 21 7 - 55 U/L 10/08/2024 5:55 PM CDT DTL Alkaline Phosphatase, S 100 40 - 129 U/L 10/08/2024 5:55 PM CDT DTL Albumin, S 5.1(H) 3.5 - 5.0 g/dL 10/08/2024 5:55 PM CDT DTL Protein, Total, S 7.7 6.3 - 7.9 g/dL 10/08/2024 5:55 PM CDT DTL Blood (Blood, Venous) 10/08/2024 4:52 PM CDT 10/08/2024 5:35 PM CDT Christian Landa P.A.-C. LAB BLOOD ADD-ON Final Res ult [facility] [address] [place] [address], [facility] [address] [place] [address] * (ABNORMAL) Basic Metabolic Panel (10/08/2024 4:52 PM CDT) Potassium, P 2.6(L) 3.6 - 5.2 mmol/L 10/08/2024 5:31 PM CDT ST[facility] Sodium, P 132(L) 135 - 145 mmol/L 10/08/2024 5:31 PM CDT [facility] Chloride, P 83(L) 98 - 107 mmol/L 10/08/2024 5:31 PM CDT [facility] Bicarbonate, P 34(H) 22 - 29 mmol/L 10/08/2024 5:31 PM CDT [facility] Anion Gap, P 15 7 - 15 10/08/2024 5:31 PM CDT [facility] BUN (Blood Urea Nitrogen), P 19 8 - 24 mg/dL 10/08/2024 5:31 PM CDT [facility] Creatinine 1.34 0.74 - 1.35 mg/dL 10/08/2024 5:31 PM CDT [facility] Estimated GFR (eGFR) 74 >=60 mL/min/BSA 10/08/2024 5:31 PM CDT [facility] Comment: Estimated GFR calculated using the 2020 CKD_EPI creatinine equation. Calcium, Total, P 10.0 8.6 - 10.0 mg/dL 10/08/2024 5:31 PM CDT ST[facility] Glucose, P 115 70 - 140 mg/dL 10/08/2024 5:31 PM CDT [facility] Blood (Blood, Venous) 10/08/2024 4:52 PM CDT 10/08/2024 5:10 PM CDT Christian Landa P.A.-C. LAB BLOOD ADD-ON Final Res ult Performing Organization Address [facility] Co de Phone Number [facility] [address] [place] [address], [place] [facility] [address] [place] [address] * ECG 12 Lead (10/08/2024 4:22 PM CDT) Ventricular Rate ECG/Min 99 BPM MUSE OR Interval 138 ms MUSE QRSD Interval 86 ms MUSE QT Interval 374 ms MUSE QTC Interval 479 ms MUSE P [place] 62 degrees MUSE R [place] 60 degrees MUSE T Wave [place] 43 degrees MUSE 10/08/2024 4:22 PM CDT 10/08/2024 4:25 PM CDT Impressions MUSE - 10/08/2024 4:25 PM CDT Normal sinus rhythm with sinus arrhythmia Nonspecific ST and T wave abnormality Prolonged QT When compared with ECG of 26-Mar-2024 15:16, No significant change in data has occurred Reviewed by YAIMA Orourke Narrative Procedure Note Clinton Ball M.D. - 10/08/2024 IMPRESSION: Normal sinus rhythm with sinus arrhythmia Nonspecific ST and T wave abnormality Prolonged QT When compared with ECG of 26-Mar-2024 15:16, No significant change in data has occurred Reviewed by YAIMA Orourke us Albert Pitts M.D., M.H.P.E. ECG ORDERABLE S Final Result Performing Organization Address [facility] Co de Phone Number MUSE NA documented in this encounter Visit Diagnoses Diagnosis Nausea And Vomiting- Primary Cyclical Vomiting Syndrome Unrelated To Migraine Hypokalemia documented in this encounter Administered Medications Inactive Administered Medications - up to 3 most recent administrations Medication Order MAR Action Action Date Dose Rate Site diazePAM tablet 5 mg (Valium) 5 mg, oral, Once, On Fri10/08/24 at 203, For 1 dose Given 10/08/2024 8:58 PM CDT 5 mg diphenhydrAMINE injection 25 mg (BenadryL) 25 mg, intravenous, Once, On Fri10/08/24 at 1628, For 1 dose Given 10/08/2024 4:34 PM CDT 25 mg ketorolac injection 15 mg (ToradoL) 15 mg, intravenous, Once, On Fri10/08/24 at 1628, For 1 dose, Adult IV push rate: Over 15 seconds. Peds IV push rate: Over 1 minute. Doses > 15 mg IV/IM are discouraged due to lack of additional analgesic benefit. Given 10/08/2024 4:33 PM CDT 15 mg metoclopramide injection 10 mg (Reglan) 10 mg, intravenous, Once, On Fri10/08/24 at 1628, For 1 dose Given 10/08/2024 4:32 PM CDT 10 mg NaCl 0.9 % bolus 1,000 mL 1,000 mL, intravenous, at 1,000 mL/hr, Administer over 1 Hours, Once, On Fri10/08/24 at 1617, For 1 dose New Bag 10/08/2024 4:31 PM CDT 1,000 mL 100 0 mL/hr potassium chloride ER tablet 40 mEq 40 mEq, oral, Every 30 min, First dose on Fri10/08/24 at 2038, For 2 doses, For K<3 mEq/L - give total of 80 mEq Swallow whole. Do NOT crush, chew, or split tablet., Monitor the following for replacement: Potassium, Replace Potassium per: Standard Schedule Given 10/08/2024 10:12 PM CDT 40 mEq Given 10/08/2024 9:07 PM CDT 40 mEq sodium chloride 0.9 % injection 10 mL 10 mL, intravenous, As needed, line care, Starting on Fri10/08/24 at 1615, Peripheral Intravenous Catheter and Rapid Infusion Catheter, prior to blood sampling, post blood transfusion or post blood sampling sodium chloride 0.9 % injection 3 mL 3 mL, intravenous, As needed, line care, Starting on Fri10/08/24 at 1615, Prior to and following infusion and between multiple consecutive infusions: sodium chloride 0.9 % injection sodium chloride 0.9 % injection 3 mL 3 mL, intravenous, Every 12 hours scheduled, First dose on Fri10/08/24 at 2100, Peripheral Intravenous Catheter and Rapid Infusion Catheter, when no infusion to maintain patency documented in this encounter Active and Recently Administered Medications Times are shown in CDT. Scheduled Medication Order 10/06/2024 10/07/2024 10/08/2024 diazePAM tablet 5 mg (Valium) (COMPLETED) 5 mg, oral, Once, On Fri10/08/24 at 2038, For 1 dose 2057 (Given - Provid er: Beth Keith RFlaviaN.) diphenhydrAMINE injection 25 mg (BenadryL) (COMPLETED) 25 mg, intravenous, Once, On Fri10/08/24 at 1628, For 1 dose 163 (Given - Provid er: Jennifer Lopez R.N.) ketorolac injection 15 mg (ToradoL) (COMPLETED) 15 mg, intravenous, Once, On Fri10/08/24 at 1628, For 1 dose, Adult IV push rate: Over 15 seconds. Peds IV push rate: Over 1 minute. Doses > 15 mg IV/IM are discouraged due to lack of additional analgesic benefit. 1633 (Given - Provid er: Jennifer Lopez R.N.) metoclopramide injection 10 mg (Reglan) (COMPLETED) 10 mg, intravenous, Once, On Fri10/08/24 at 1628, For 1 dose 1632 (Given - Provid er: Jennifer Lopez, R.N.) NaCl 0.9 % bolus 1,000 mL (COMPLETED) 1,000 mL, intravenous, at 1,000 mL/hr, Administer over 1 Hours, Once, On Fri10/08/24 at 1617, For 1 dose 1631 (New Bag - Prov ider: Jennifer Lopez, R.N.)1731 (Due: Stopped - Provider: Jennifer Lopez R.N.) potassium chloride ER tablet 40 mEq (COMPLETED) 40 mEq, oral, Every 30 min, First dose on Fri10/08/24 at 2038, For 2 doses, For K<3 mEq/L - give total of 80 mEq Swallow whole. Do NOT crush, chew, or split tablet., Monitor the following for replacement: Potassium, Replace Potassium per: Standard Schedule 2106 (Given - Provid er: Beth Keith RFlaviaN.)2212 (Given - Provider: Beth Keith R.N.) sodium chloride 0.9 % injection 3 mL 3 mL, intravenous, Every 12 hours scheduled, First dose on Fri10/08/24 at 2100, Peripheral Intravenous Catheter and Rapid Infusion Catheter, when no infusion to maintain patency 2100 (Due) PRN Medication Order 10/06/2024 10/07/2024 10/08/2024 sodium chloride 0.9 % injection 10 mL 10 mL, intravenous, As needed, line care, Starting on Fri10/08/24 at 1615, Peripheral Intravenous Catheter and Rapid Infusion Catheter, prior to blood sampling, post blood transfusion or post blood sampling sodium chloride 0.9 % injection 3 mL 3 mL, intravenous, As needed, line care, Starting on Fri10/08/24 at 1615, Prior to and following infusion and between multiple consecutive infusions: sodium chloride 0.9 % injection documented in this encounter Additional Health Concerns Assessment Noted Time PHQ-9 Depression Total Score: 14 024 10:52 AM CDT documented as of this encounter Care Teams Hot Die Press Feeder Relationship Specialty Start Date End Date Elsewhere, Pcp PCP - General Internal Medicine 03/26/24 documented as of this encounter
--- OUTSIDE RECORDS SUMMARY | 2024-11-02 15:35 | XMS_ITS | Clinical Summary ---
Author Organization [facility] Address [address] [place] [address] Care Team Providers Care Head Chopper Name Role Phone Elsewhere, Pcp Primary Care Provider Unavailabl e Source Comments Patient records contain information from all sites at [facility]. For routine questions regarding patient records, call [phone] during business hours, M-F 8:00 AM - 5:00 PM Central Time. Record requests for emergency care only can be directed to [phone] at any time.[facility] Allergies Active Allergy Reactions Criticality Noted Date [...] by mouth daily. 3 tablet 03/30/2024 Active ramelteon (Rozerem) 8 mg tablet Take 8 mg by mouth at bedtime as needed. 08/23/2024 Active LORazepam (Ativan) 1 mg tablet Take 1 mg by mouth at bedtime as needed. 09/27/2024 Active diazePAM (Valium) 5 mg tablet Take 1 tablet (5 mg total) by mouth every 8 (eight) hours as needed (Anxiety and/or nausea) for up to 3 doses. 3 tablet 10/08/2024 Active Active Problems Problem Noted Date Diagnosed [...] history of withdrawal seizures or withdrawal complications. [place] admission on 03/26/20 for alcohol withdrawal and discharged on 03/28/20. Patient is interested in quitting. Has previously tried clonidine and naltrexone. Insomnia 09/19/2016 Cyclical Vomiting Syndrome Unrelated To Migraine 04/04/2016 Depressive Disorder 05/16/2014 Anxiety Generalized Disorder 12/03/2013 Overview (03/26/2020): Under the care of Dr. Rafat Falcon for mental health care. [facility] . Initial intake 12/10/12 Previous Medication [...] ER visit for cyclic vomiting; hospitalization at [facility] 05/03 (72 hr hold); 12/01 at [facility] History of Suicide Attempts: no Asthma 12/11/2007 Overview (03/27/2020): Patient with childhood asthma, not currently requiring any inhalers or medication. Resolved Problems Problem Noted Date Diagnosed Date Resolved Date Alcohol Withdrawal Syndrome 11/13/2023 11/16/2023 Alcohol Withdrawal Syndrome 03/26/2020 07/15/2020 Acidosis Metabolic Anion Gap 03/26/2020 03/27/2020 Encounters Date Type Department Care Team Description 10/08/2024 4:05 PM CDT - 10/08/2024 11:18 PM CDT Emergency [facility] Emergency Department [address] [place] [id number] Albert Pitts M.D., M.H.P.E. Nausea And Vomiting (Primary Dx); Cyclical Vomiting Syndrome Unrelated To Migraine; Hypokalemia Discharge Disposition: Home or Self Care from Last 3 Months Immunizations Immunization Administration Dates Next Due DTP [...] e alcohol) 750 ml straight Vodka Daily [employer] Utilities Answer Date Recorded In the past 12 months has e [employer], oil, or water DTT threatened to shut off services in your [...] your living situation today? 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 Gender Identity Not on file Sexual Orientation [...] Mass Index 28.08 10/08/2024 4:08 PM CDT Plan of Treatment Health Maintenance [...] tracking) 07/21/2024 Creatinine Level (Kidney Function Test) 10/08/2025 10/08/2024, 07/13/2024, 07/11/2024, Additional history exists Potassium Level 10/08/2025 10/08/2024, 06/21, 07/11/2024, Additional history exists Sodium Level 10/08/2025 10/08/2024, 06/21, 07/11/2024, Additional history exists DTaP,Tdap,and Td Vaccines (7 - Td or Tdap) 03/20/2030 03/20/2020, 03/20/2020, 01/27/2008, Additional history exists Hepatitis B Vaccines Completed 08/16/1996, 08/16/1996, 04/02/1996, Additional history exists IPV Vaccines Completed 03/16/2001, 02/19, 08/16/1996, Additional history exists Varicella Vaccines Completed 01/27/2008, 07/21/1997 Glucose Test for Med Monitoring Discontinued 10/08/2024, 07/13/2024, 07/11/2024, Additional history exists HPV Vaccines Aged Out No longer eligi ble based on patient's age to complete this topic Procedures Procedure Name Priority Date/Time Associated Diagnosis Comments SPSMA RESULT STAT 10/08/2024 4:52 PM CDT ETHANOL, S STAT 10/08/2024 4:52 PM CDT MAGNESIUM, S STAT 10/08/2024 4:52 PM CDT CBC WITH DIFFERENTIAL, B STAT 10/08/2024 4:52 PM CDT LIPASE, S/P STAT 10/08/2024 4:52 PM CDT HEPATIC FUNCTION PANEL, S STAT 10/08/2024 4:52 PM CDT BASIC METABOLIC PANEL, S/P STAT 10/08/2024 4:52 PM CDT ECG STAT 10/08/2024 4:22 PM CDT from Last 3 Months Results * Ethanol Level, Serum (10/08/2024 4:52 PM CDT) Ethanol, S <10 <10 mg/dL 10/08/2024 5:5 5 PM CDT DTL Blood (Blood, Venous) 10/08/2024 4:52 PM CDT 10/08/2024 5:35 PM CDT Christian Landa P.A.-C. LAB BLOOD NON ADD-ON Final Result [facility] [address] [place] [address], [place] DTL [facility] [address] [place] [address] * (ABNORMAL) Hepatic Function Panel (10/08/2024 4:52 [...] P.A.-C. LAB BLOOD [place] [address], [address] [address] * (ABNORMAL) Morphology Eval (special smear) (10/08/2024 4:52 PM CDT) Neutrophilic Segs and Bands 60 50 - 75 % 10/08/2024 6:02 PM CDT [facility] Lymphocytes 26 18 - 42 % 10/08/2024 6:02 PM CDT [facility] Monocytes 14(H) 2 - 11 % 10/08/2024 6:02 PM CDT [facility] Manual Absolute Neutrophil Count 5.94 1.56 - 6.45 x10(9)/L 10/08/2024 6:02 PM CDT [facility] Comment: ----ADDITIONAL INFORMATION---- The manual absolute neutrophil count is derived from a manual differential count and therefore is not exactly comparable to the automated absolute neutrophil count. Interpretation See Comment 6:02 PM CDT [facility] Comment: Microcytosis of uncertain significance. Suggest correlation with clinical history and iron studies. If further hemoglobinopathy testing is desired, please order a Thalassemia and Hemoglobinopathy Evaluation. Reviewed by: Lucy 10/08/2024 6:02 PM CDT [facility] Blood 10/08/2024 4:52 PM CDT 10/08/2024 5:09 PM CDT Christian Landa P.A.-C. LAB BLOOD ADD-ON Final Res ult [facility] [address] [place] [address], [facility] [address] [place] [address] * (ABNORMAL) CBC with Differential, Blood (10/08/2024 [...] - 6.45 x10(9)/L 10/08/2024 6:01 PM CDT [facility] Comment:Auto-diff results no t valid. See manual differential. Blood (Blood, Venous) 10/08/2024 4:52 PM CDT 10/08/2024 5:09 PM CDT Christian Landa P.A.-C. LAB BLOOD ADD-ON Final Res ult Performing Organization Address City/[facility]/ZIP Co de Phone Number [facility] [address] [place] [address], [facility] [address] [place], [place] [id number] [place] [address] [address] [place] [address] * Magnesium (10/08/2024 4:52 PM CDT) Magnesium, P 2.3 1.7 - 2.3 mg/dL 10/08/2024 5:31 PM CDT [facility] Blood (Blood, Venous) 10/08/2024 4:52 PM CDT 10/08/2024 5:10 PM CDT Christian Landa P.A.-C. LAB BLOOD ADD-ON Final Res ult Performing Organization Address [facility] Co de Phone Number [facility] [address] [place], [place] [id number] [place] [address] [address] [place] [address] * (ABNORMAL) Lipase (10/08/2024 4:52 PM CDT) Lipase, S 92(H) 13 - 60 U/L 10/08/2024 5: 55 PM CDT DTL Blood (Blood, Venous) 10/08/2024 4:52 PM CDT 10/08/2024 5:35 PM CDT Christian Landa P.A.-C. LAB BLOOD ADD-ON Final Res ult [facility] [address] [place] [address], [facility] DTL [facility] [address] [place] [address] * (ABNORMAL) Basic Metabolic Panel (10/08/2024 4:52 [...] P.A.-C. LAB BLOOD ADD-ON Final Res ult [facility] [address] [place] [address], [facility] [address] [place] [address] * ECG 12 Lead (10/08/2024 4:22 PM CDT) Ventricular Rate ECG/Min 99 BPM MUSE AZ Interval 138 ms MUSE QRSD Interval 86 ms MUSE QT Interval 374 ms MUSE QTC Interval 479 ms MUSE P [place] 62 degrees MUSE R [place] 60 degrees MUSE T Wave [place] 43 degrees MUSE 10/08/2024 4:22 PM CDT [...] data has occurred Reviewed by YAIMA Orourke Albert Pitts M.D., M.H.P.E. ECG ORDERABLE S Final Result MUSE NA from Last 3 Months Insurance [facility] [place] [address] Advance Directives For more information, please contact: [phone] * Full Code (Latest Code Status on [...] Due to: Not medically appropriate Care Teams Head Chopper Relationship Specialty Start Date End Date Elsewhere, Pcp PCP - General Internal Medicine 03/26/24
--- OUTSIDE RECORDS SUMMARY | 2024-11-02 15:35 | XMS_ITS | Encounter Summary ---
Author Organization [facility] Address [facility] [place] [address] Care Team Providers Care Cap Sizer Name Role Phone Rajan Mcpeace Wilkins Primary Care Provider [phone] Reason for Visit * Reason Onset Date Comments MH/CD Inpatient 12/08/2013 Encounter Details Date Type Department Care Team ([facility] st Contact Info) Description 12/08/2013 Telephone [facility] Intake [address] [place] [phone] Generic, Behavioral Intake, MH/CD Inpatient Social History [...] 12/08/2013 11:23 AM CDT S: Katarzyna from [facility] calling requesting Psych bed for pt. # [phone] B: Pt was BIB mother to [place] ED 12/06/13 for self induced vomiting; OCD [...] have not pursued commitment at this time. [facility] will be unable to take him at this time. If commitment is supported by [facility], I invited Katarzyna to call back and check on bed availability. 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
--- OUTSIDE RECORDS SUMMARY | 2024-11-02 15:35 | XMS_ITS | Clinical Summary ---
Author Organization [facility] Address [address] [place] [address] Care Team Providers Care Datastage Architect Name Role Phone Jesusita Deepthi Wilkins Primary Care Provider [phone] Allergies Active Allergy Reactions Criticality Noted Date [...] history of withdrawal seizures or withdrawal complications. [facility] admission on 03/26/20 for alcohol withdrawal and discharged on 03/28/20. Patient is interested in quitting. Has previously tried clonidine and naltrexone. Patient with history of alcohol abuse. No history of withdrawal seizures or withdrawal complications. [facility] admission on 03/26/20 for alcohol withdrawal and discharged on 03/28/20. Patient is interested in quitting. Has previously tried clonidine and naltrexone. Patient with history of alcohol abuse. No history of withdrawal seizures or withdrawal complications. [facility] admission on 03/26/20 for alcohol withdrawal and [...] ER visit for cyclic vomiting; hospitalization at [facility] 05/03 (72 hr hold); 12/01 at [facility] History of Suicide Attempts: no Under [...] ER visit for cyclic vomiting; hospitalization at [facility] 05/03 (72 hr hold); 12/01 at [facility] History of Suicide Attempts: no Under [...] ER visit for cyclic vomiting; hospitalization at [facility] 05/03 (72 hr hold); 12/01 at [facility] History of Suicide Attempts: no Under [...] ER visit for cyclic vomiting; hospitalization at [facility] 05/03 (72 hr hold); 12/01 at [facility] History of Suicide Attempts: no Under [...] ER visit for cyclic vomiting; hospitalization at [facility] 05/03 (72 hr hold); 12/01 at [facility] History of Suicide Attempts: no Under [...] ER visit for cyclic vomiting; hospitalization at [facility] 05/03 (72 hr hold); 12/01 at [facility] History of Suicide Attempts: no Under [...] ER visit for cyclic vomiting; hospitalization at [facility] 05/03 (72 hr hold); 12/01 at [facility] History of Suicide Attempts: no Cannabis [...] in an abandoned building, in an overnight care home, or couch-surfing.) Yes 06/23/2024 Are you worried [...] Comments Blood Pressure 122/60 07/13/2024 6:16 AM NUCLEAR MEDICAL TECH Pulse 117 07/12/2024 10:01 PM NUCLEAR MEDICAL TECH Temperature 36.7 C (98.1 F) 07/12/2024 10:01 PM NUCLEAR MEDICAL TECH Respiratory Rate 30 07/12/2024 10:01 PM NUCLEAR MEDICAL TECH Oxygen Saturation 100% 07/12/2024 10:01 PM NUCLEAR MEDICAL TECH Inhaled Oxygen Concentration - - Weight 98.9 kg (218 lb) 07/12/2024 10:01 PM NUCLEAR MEDICAL TECH Height 182.9 cm (6') 07/11/2024 3:12 PM NUCLEAR MEDICAL TECH Body Mass Index 29.57 07/11/2024 3:12 PM NUCLEAR MEDICAL TECH Plan of Treatment Health Maintenance Due Date Last Done Comments ANNUAL REVIEW OF HM ORDERS 1995 ASTHMA ACTION PLAN 1995 ASTHMA CONTROL TEST 1995 DEPRESSION ACTION PLAN 1995 PHQ-9 1995 YEARLY PREVENTIVE VISIT 10/02/1998 HEPATITIS C SCREENING 10/02/2013 Pneumococcal Vaccine: Pediatrics (0 to 5 Years) and At-Risk Patients (6 to 49 Years) (1 of 2 - PCV) 10/02/2014 COVID-19 Vaccine (4 - season) 2024 11/28/2021, 11/29/2020, 11/08/2020 INFLUENZA VACCINE [...] Priority Date/Time Associated Diagnosis Comments BASIC METABOLIC PANEL STAT 07/13/2024 1:19 AM NUCLEAR MEDICAL TECH from Last 3 Months or Most Recently Relevant to Health Maintenance Results * (ABNORMAL) Basic metabolic panel (07/13/2024 1:19 AM NUCLEAR MEDICAL TECH) Sodium 127(L) 135 - 145 mmol/L 07/13/2024 3:15 AM NUCLEAR MEDICAL TECH [facility] Potassium 4.4 3.4 - 5.3 mmol/L 07/13/2024 3:15 AM NUCLEAR MEDICAL TECH [facility] Chloride 91(L) 98 - 107 mmol/L 07/13/2024 3:15 AM [facility] Carbon Dioxide (CO2) 23 22 - 29 mmol/L 07/13/2024 3:15 AM [facility] Anion Gap 13 7 - 15 mmol/L 07/13/2024 3:15 AM [facility] Urea Nitrogen 22.0(H) 6.0 - 20.0 mg/dL 07/13/2024 3:15 AM [facility] Creatinine 0.92 0.67 - 1.17 mg/dL 07/13/2024 3:15 AM [facility] GFR Estimate >90 >60 mL/min/1.7 3m2 07/13/2024 3:15 AM [facility] Comment:eGFR calculated usin 2020 CKD-EPI equation. Calcium 9.6 8.8 - 10.4 mg/dL 07/13/2024 3:15 AM [facility] Comment:Reference intervals for this test were updated on 02/03/2024 to reflect our healthy population more accurately. There may be differences in the flagging of prior results with similar values performed with this method. Those prior results can be interpreted in the context of the updated reference intervals. Glucose 91 70 - 99 mg/dL 07/13/2024 3:15 AM [facility] Blood BLOOD SPECIMEN / Unknown Venipuncture / Unknown 07/13/2024 1:19 AM NUCLEAR MEDICAL TECH 07/13/2024 1:23 AM [facility] us Jack Cornejo MD LAB - BLOOD ORDERABLES Final Res ult [facility] [address] [facility] [place] [address], [facility] Last 3 Months or Most Recently Relevant to Health Maintenance Insurance [facility] Address: [address] [place] [phone] Advance Directives For more information, please contact: [phone] Documents on File Type Date Recorded Patient Gas Leak Inspector Expl anation Advance Directives and Living Will [...] Agents on File Name Relationship Healthcare Agent [facility] Communication Veronica Glass Mother First Alternate Health Care Agent Suzette De La Rosa Sister Health Care Agent Larry Sapp Father Second Alternate Health Care Agent Care Teams Datastage Architect Relationship Specialty Start Date End Date Deepthi Mc [address] [place] [address] PCP - General Physician Land Development Project Manager 06/15/23
--- OUTSIDE RECORDS SUMMARY | 2024-11-02 15:35 | XMS_ITS | Clinical Summary ---
Author Organization [facility] Address [address] [place] [address] Care Team Providers Care Monitoring Analyst Name Role Phone Deepthi Mc Primary [...] if needed. Active cloNIDine 0.1 mg/24 hr ([id number]) 0.1 mg/24 hr patchIndications:A nxiety,ETOH abuse APPLY [...] NEEDED 45 Tablet 5 08/23/19 25 Active fluticasone (50 mcg per [...] for Anxiety. 10 Tablet 09/28/19 25 Active ramelteon 8 mg tabletIndications: Insomnia, idiopathic Take 1 Tablet (8 mg) by mouth at bedtime if needed for Sleep. 30 Tablet 10/26/19 25 Active dextroamphetamine- amphetamine (AdderalL) 10 mg tabletIndications: Attention deficit hyperactivity disorder (ADHD), combined type Take 1 Tablet (10 mg) by mouth two times daily. 60 Tablet 10/26/19 25 025 Active dextroamphetamine- amphetamine (AdderalL) 10 mg tabletIndications: Attention deficit hyperactivity disorder (ADHD), combined type Take 1 Tablet (10 mg) by mouth two times daily. 60 Tablet 11/25/19 25 025 Active dextroamphetamine- amphetamine (AdderalL) 10 mg tabletIndications: Attention deficit hyperactivity disorder (ADHD), combined type Take 1 Tablet (10 mg) by mouth two times daily. 60 Tablet 12/25/19 25 Active LORazepam 0.5 mg tabIndications:Anx iety Take 1 Tablet (0.5 mg) by mouth 2 times daily if needed for Anxiety. 20 Tablet 10/26/19 25 Active QUEtiapine 25 mg tabletIndications: Anxiety Take 1 Tablet (25 mg) by mouth at bedtime. 30 Tablet 1 10/26/19 25 Active pantoprazole (Protonix) 40 mg delayed-release tabletIndications: Gastric reflux Take 1 Tablet (40 mg) by mouth once daily. 90 Tablet 3 11/02/19 25 Active ramelteon (ROZEREM) 8 mg tabletIndications: Insomnia, idiopathic Take 1 Tablet (8 mg) by mouth at bedtime if needed for Sleep. 30 Tablet 08/23/19 25 025 Discontin ued(Reord er (E-cancel not [...] Dr. Rafat Falcon for mental health care. [facility] . Initial intake 12/10/12 [...] Center 05/03 (72 hr hold); 12/01 at [facility] History of Suicide Attempts: no Cannabis dependence, [...] Encounters Date Type Department Care Team Description 11/01/2024 1:00 PM CDT Office Visit [facility] [address] [place] [address] David Bryan, SAMUEL Failed Appointment 10/25/2024 2:40 PM CDT Office Visit [facility] [address] [place] [address] Deepthi Mc PA Medication Management 10/25/2024 Travel 10/08/2024 Telephone [facility] [address] [place] [address] Deepthi Mc PA Questions 09/27/2024 2:00 PM CDT Office Visit [facility] [address] [place] [address] Deepthi Mc PA Medication Management (Pristiq & Cymbalta - is done with the pristiq but has not started the cymbalta yet) 09/27/2024 Travel 09/22/[address] [address] Deepthi Mc PA Refill Request (Refill request ) 09/06/2024 2:40 PM PAPER COLORER Office Visit [address] [address] Deepthi Mc PA Medication Management 09/06/2024 Travel 09/01/2024 2:00 PM PAPER COLORER Office Visit [address] [address] Alanna Erwin PA Consult (Conductive hearing loss of right ear with unrestricted hearing of left ear /Recurrent acute suppurative otitis media without spontaneous rupture of left tympanic membrane ) 09/01/2024 Travel 08/17/2024 Telephone [facility] [address] [place] [address] Deepthi Mc PA Questions (need a new prescriptions for all medication ) 08/09/2024 2:00 PM PAPER COLORER Office Visit [address] [address] Deepthi Mc PA Ear Problem (Check both ears); Medication Management (Discuss restarting Adderall and ativan) 08/09/2024 Travel from Last 3 Months Immunizations Immunization Administration Dates Next Due COVID-19 vaccine ([employer] 30mcg/0.3mL) 12YO+ MINH-SUCROSE PF, MDV 11/28/2021 COVID-19 vaccine ([employer] NTech 30mcg/0.3mL) PF, MDV 11/29/2020,11/08/2020 DTP-HIB 1995 [...] Date Smoking Tobacco: Every Day Cigarettes 0.3 6 Started: 11/09/2018 Smokeless Tobacco: Never Tobacco Cessation:Ready [...] on file Legal Sex Male 5:18 AM PAPER COLORER Gender Identity Not on file Sexual Orientation Not on file 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 Not on file Not on file 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 Not on file Not on file Not on file Obstetrics History Last Filed Vital Signs Vital Sign Reading Time Taken Comments Blood Pressure 115/78 10/25/2024 2:38 PM CDT Pulse 83 10/25/2024 2:38 PM CDT Temperature 37.4 C (99.4 F) 12/30/2020 8:55 PM CDT Respiratory Rate 18 12/30/2020 8:55 PM CDT Oxygen Saturation 100% 02/13/2024 11:31 AM CDT Inhaled Oxygen Concentration - - Weight 108.4 kg (239 lb) 10/25/2024 2:38 PM CDT Height 182 cm (5' 11.65) 11/01/2022 2:24 PM CDT Body Mass Index 32.73 11/01/2022 2:24 PM CDT Plan of Treatment Upcoming Encounters Date Type Department Care Team (Late st Contact Info) Description 11/08/2024 2:40 PM CDT Office Visit [facility] [address] [place] [address] Deepthi Mc PA [address] [place] [address] Health Maintenance Due Date Last Done Comments [...] season) 2024 11/28/2021, 11/29/2020, 11/08/2020 Influenza Vaccine (Season Ended) 2025 05/17/20, 07/07/2020 Tetanus booster 03/20/2030 03/20/2020, 02/20, 01/27/2008 Tdap Completed 01/27/2008 HIV for age 15-65 Completed 10/15/2013 Procedures Procedure Name Priority Date/Time Associated Diagnosis Comments ANTI HIV 1/2 Routine 10/15/2013 9:28 AM CDT Diarrhea GERD (gastroesophageal reflux disease) Weight loss from Last 3 Months or Most Recently Relevant to Health Maintenance Results * ANTI HIV 1/2 (10/15/2013 9:28 AM CDT) ANTI HIV 1/2 Non-reacti ve [facility] Blood specimen (specimen) BLOOD SPECIMEN / Unknown 10/15/2013 9:28 AM CDT 10/15/2013 9:13 AM CDT us Luis Jarrett MD SEND OUTS Final Res ult [facility] [place]NAL ZIP [address] [place] [address] from Last 3 Months or Most Recently Relevant to Health Maintenance Insurance [facility] Advance Directives * Full Code (Latest Code Status on File) Date Activated Date Inactivated Comments 05/15/2014 4:32 PM 05/18/2014 8:52 PM * Full Code Date Activated Date Inactivated Comments 05/02/2014 7:01 PM 05/07/2014 1:56 PM Care Teams Monitoring Analyst Relationship Specialty Start Date End Date Deepthi Mc PA [address] [place] [address] PCP - General Family Practice 03/04/11
--- OUTSIDE RECORDS SUMMARY | 2024-11-02 15:59 | XMS_ITS | Clinical Summary ---
Author Organization [facility] Address [address], [place] [address] Care Team Providers Care Greenhouse Superintendent Name Role Phone Deepthi Mc PA-C Primary Care Provider [phone] Source Comments You are receiving this document as you are listed as the primary care provider,follow-up provider, or the patient has been referred to you for consultation.This is in compliance with the Medicare and[facility] Hospital[facility] EHR Incentive Program,which states Providers who transition their patient to another setting of careor provider of care or refers their patient to another provider of care shouldprovide summary care record for each transition of care or referral. [facility] Allergies No known active allergies Medications [...] history of withdrawal seizures or withdrawal complications. [facility] admission on 03/26/20 for alcohol withdrawal and discharged on 03/28/20. Patient is interested in quitting. Has previously tried clonidine and naltrexone. Patient with history of alcohol abuse. No history of withdrawal seizures or withdrawal complications. [facility] admission on 03/26/20 for alcohol withdrawal and discharged on 03/28/20. Patient is interested in quitting. Has previously tried clonidine and naltrexone. Persistent sleep disorder 10/17/2016 Insomnia 09/19/2016 Cyclical vomiting 04/04/2016 Social anxiety disorder 02/26/2016 PTSD (post-traumatic stress disorder) 05/16/2014 Generalized anxiety disorder 12/03/2013 Overview (12/26/2020): Under the care of Dr. Rafat Falcon for mental health care. [facility] . Initial intake 12/10/12 Previous [...] ER visit for cyclic vomiting; hospitalization at [facility] 05/03 (72 hr hold); 12/01 at [facility] History of Suicide Attempts: no Under the care of Dr. Rafat Falcon for mental health care. [facility] . Initial intake 12/10/12 Previous [...] ER visit for cyclic vomiting; hospitalization at [facility] 05/03 (72 hr hold); 12/01 at [facility] History of Suicide Attempts: no Under the care of Dr. Rafat Falcon for mental health care. [facility] . Initial intake 12/10/12 Previous [...] ER visit for cyclic vomiting; hospitalization at [facility] 05/03 (72 hr hold); 12/01 at [facility] History of Suicide Attempts: no Asthma 12/11/2007 [...] Comments Blood Pressure 165/84 08/11/2021 5:23 PM NATIONAL ACCOUNT EXECUTIVE Pulse 77 08/11/2021 5:23 PM NATIONAL ACCOUNT EXECUTIVE Temperature 36.4 C (97.5 F) 08/11/2021 5:23 PM NATIONAL ACCOUNT EXECUTIVE Respiratory Rate 20 08/11/2021 5:23 PM NATIONAL ACCOUNT EXECUTIVE Oxygen Saturation 100% 08/11/2021 5:23 PM NATIONAL ACCOUNT EXECUTIVE Inhaled Oxygen Concentration - - Weight 104.3 kg (230 lb) 08/11/2021 5:26 PM NATIONAL ACCOUNT EXECUTIVE Height 182.9 cm (6') 08/11/2021 5:26 PM NATIONAL ACCOUNT EXECUTIVE Body Mass Index 31.19 08/11/2021 5:26 PM NATIONAL ACCOUNT EXECUTIVE Plan of Treatment Health Maintenance Due Date [...] patient's age to complete this topic Insurance [facility] Care Teams Greenhouse Superintendent Relationship Specialty Start Date End Date Deepthi Mc [place] [address] [address] [place] [address] PCP - General Physician Program Director/Morning Show Host 08/15/24
--- OUTSIDE RECORDS SUMMARY | 2024-11-02 16:00 | XMS_ITS | Encounter Summary ---
Author Organization [facility] Address [address] [place] [address] Care Team Providers Care Clocksmith Name Role Phone Elsewhere, Pcp Primary Care Provider Unavailabl e Reason for Visit * Reason Comments Vomiting Encounter Details Date Type Department Care Team ([facility] st Contact Info) Description 10/08/2024 4:05 PM CDT - 10/08/2024 11:18 PM CDT Emergency [facility] Emergency Department [address] [place] [address] Albert Pitts M.D., M.H.P.E. [address] [place] [phone] Nausea And Vomiting (Primary Dx); Cyclical Vomiting Syndrome Unrelated To Migraine; Hypokalemia Discharge Disposition: Home or Self Care Social History Tobacco Use Types Packs/Day Years Used Date Smoking Tobacco: Every Day Cigarettes 0.5 8 Smokeless Tobacco: Never Comments:x 5 daily Alcohol Use Standard Drinks/Week Comments Yes 5 (1 standard drink = 0.6 oz pur e alcohol) 750 ml straight Vodka Daily [facility] Utilities Answer Date Recorded In the past 12 months has e [employer], gas, oil, or water [employer] threatened to shut off services in [...] your living situation today? 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 pharmacy. Please take this medication as needed every 8 hours in order to control anxiety, nausea, and/or vomiting. Please cut down on your alcohol and marijuana usage. * Attachments The following attachments cannot be sent through Care Everywhere. * Cyclic Vomiting Syndrome Adult (Vietnamese) * Nausea and Vomiting Adult [id number] (Vietnamese) * Hypokalemia (Vietnamese) documented in this encounter Medications at Time [...] this medical note: EMERGENCY DEPARTMENT EVALUATION Vomiting Claudio Sapp is a 29-year-old male with a [...] Hypokalemia Dr. Seferino Christianson (EM PGY3) Phone: [phone] Pager: [phone] Seferino Christianson M.D. Resident 10/09/24 [phone] * Beth Keith, RFlaviaN. - 10/08/2024 9:24 [...] Reviewed by: Lucy 10/08/2024 6:02 PM CDT [facility] Blood 10/08/2024 4:52 PM CDT 10/08/2024 5:09 PM CDT Christian Landa P.A.-C. LAB BLOOD ADD-ON Final Res ult Performing Organization Address City/[facility]/ZIP Co de Phone Number [facility] [address] [place] [address] * Ethanol Level, Serum (10/08/2024 4:52 PM CDT) [facility] Ethanol, S <10 <10 mg/dL 10/08/2024 5:5 5 PM CDT DTL Blood (Blood, Venous) 10/08/2024 4:52 PM CDT 10/08/2024 5:35 PM CDT Christian Landa P.A.-C. LAB BLOOD NON ADD-ON Final Result Performing Organization Address City/[facility]/ZIP Co de Phone Number [facility] [address] [place] [address], [facility] [address] [place] [address] * Magnesium (10/08/2024 4:52 PM CDT) Pathologist [facility] Magnesium, P 2.3 1.7 - 2.3 mg/dL 10/08/2024 5:31 PM CDT [facility] Blood (Blood, Venous) 10/08/2024 4:52 PM CDT 10/08/2024 5:10 PM CDT us Christian Landa P.A.-C. LAB BLOOD ADD-ON Final Res ult [facility] [address] [place] [address], [facility]MA [facility] [address] [place] [address] * (ABNORMAL) CBC with Differential, Blood (10/08/2024 [...] - 6.45 x10(9)/L 10/08/2024 6:01 PM CDT [facility] Comment:Auto-diff results no t valid. See manual differential. Blood (Blood, Venous) 10/08/2024 4:52 PM CDT 10/08/2024 5:09 PM CDT us Christian Landa P.A.-C. LAB BLOOD ADD-ON Final Res ult Performing Organization Address City/[facility]/ZIP Co de Phone Number [facility] [address] [place] [address], [facility] STMA [facility] [address] [place] [address] DHPM [facility] [address] [place] [address] * (ABNORMAL) Lipase (10/08/2024 4:52 PM CDT) Lipase, S 92(H) 13 - 60 U/L 10/08/2024 5: 55 PM CDT DTL Blood (Blood, Venous) 10/08/2024 4:52 PM CDT 10/08/2024 5:35 PM CDT Christian Landa P.A.-C. LAB BLOOD ADD-ON Final Res ult Performing Organization Address City/[facility]/ZIP Co de Phone Number [facility] [address] [place] [address], [facility] DTL [facility] [address] [place] [address] * (ABNORMAL) Hepatic Function Panel (10/08/2024 4:52 [...] P.A.-C. LAB BLOOD ADD-ON Final Res ult [facility] [address] [place] [address], [facility] [address] [place] [address] * (ABNORMAL) Basic Metabolic Panel (10/08/2024 4:52 [...] ADD-ON Final Res ult Performing Organization Address [facility] Co de Phone Number [facility] [address] [place] [address], [place] [facility] [address] [place] [address] * ECG 12 Lead (10/08/2024 4:22 PM CDT) Ventricular Rate ECG/Min 99 BPM MUSE [place] Interval 138 ms MUSE QRSD Interval 86 ms MUSE QT Interval 374 ms MUSE QTC Interval 479 ms MUSE P [place] 62 degrees MUSE R [place] 60 degrees MUSE T Wave [place] 43 degrees MUSE 10/08/2024 4:22 PM CDT [...] ORDERABLE S Final Result Performing Organization Address [facility] Co de Phone Number MUSE NA [...] documented as of this encounter Care Teams Clocksmith Relationship Specialty Start Date End Date Elsewhere, Pcp PCP - General Internal Medicine 03/26/24 documented as of this encounter
[2024-11-02] MEDS: OLANZapine 5 MG/ML inj 10 MG IM (16:01)
[2024-11-02] MEDS: diphenhydrAMINE 50 MG/ML inj IM (16:01)
--- OUTSIDE RECORDS SUMMARY | 2024-11-02 16:01 | XMS_ITS | Clinical Summary ---
Author Organization [facility] [facility] Address [address] [place] [address] Care Team Providers Care Bioengineer Name Role Phone Deepthi Mc Primary Care [...] if needed. Active cloNIDine 0.1 mg/24 hr ([id number]) 0.1 mg/24 hr patchIndications:A nxiety,ETOH abuse APPLY [...] Dr. Rafat Falcon for mental health care. [facility] . Initial intake 12/10/12 [...] ER visit for cyclic vomiting; hospitalization at [facility] 05/03 (72 hr hold); 12/01 at [facility] History of Suicide Attempts: no Cannabis [...] Description 11/01/2024 1:00 PM CDT Office Visit [facility] [address] [place] [address] David Bryan, SAMUEL Failed Appointment 10/25/2024 2:40 PM CDT Office Visit [facility] [address] [place] [address] Deepthi Mc PA Medication Management 10/25/2024 Travel 10/08/[address] [facility] [address] [place] [address] Deepthi Mc PA Questions 09/27/2024 2:00 PM CDT Office Visit [facility] [address] [place] [address] Deepthi Mc PA Medication Management (Pristiq & Cymbalta - is done with the pristiq but has not started the cymbalta yet) 09/27/2024 Travel 09/22/[address] [address] Deepthi Mc PA Refill Request (Refill request ) 09/06/2024 2:40 PM MORNING SHOW NEWSCAST PRODUCER Office Visit [address] [address] Deepthi Mc PA Medication Management 09/06/2024 Travel 09/01/2024 2:00 PM MORNING SHOW NEWSCAST PRODUCER Office Visit [address] [address] Alanna Erwin PA Consult (Conductive hearing loss of right ear with unrestricted hearing of left ear /Recurrent acute suppurative otitis media without spontaneous rupture of left tympanic membrane ) 09/01/2024 Travel 08/17/[address] [facility] [address] [place] [address] Deepthi Mc PA Questions (need a new prescriptions for all medication ) 08/09/2024 2:00 PM MORNING SHOW NEWSCAST PRODUCER Office Visit [address] [address] Deepthi Mc PA Ear Problem (Check both ears); Medication Management (Discuss restarting Adderall and ativan) 08/09/2024 Travel from Last 3 Months Immunizations Immunization Administration Dates Next Due COVID-19 vaccine ([employer] 30mcg/0.3mL) 12YO+ MINH-SUCROSE PF, MDV 11/28/2021 COVID-19 vaccine ([employer] NTech 30mcg/0.3mL) PF, MDV 11/29/2020,11/08/2020 DTP-HIB 1995 [...] on file Legal Sex Male 5:18 AM MORNING SHOW NEWSCAST PRODUCER Gender Identity Not on file Sexual Orientation [...] Description 11/08/2024 2:40 PM CDT Office Visit [facility] [address] [place] [address] Deepthi Mc PA [address] [place] [address] Health Maintenance Due Date Last Done Comments [...] AM CDT) ANTI HIV 1/2 Non-reacti ve [facility] Blood specimen (specimen) BLOOD SPECIMEN / Unknown 10/15/2013 9:28 AM CDT 10/15/2013 9:13 AM CDT us Luis Jarrett MD SEND OUTS Final Res ult [facility] INTERNAL ZIP [address] [place] [address] from Last 3 Months or Most Recently Relevant to Health Maintenance Insurance [facility] Advance Directives * Full Code (Latest Code Status on File) Date Activated Date Inactivated Comments 05/15/2014 4:32 PM 05/18/2014 8:52 PM * Full Code Date Activated Date Inactivated Comments 05/02/2014 7:01 PM 05/07/2014 1:56 PM Care Teams Bioengineer Relationship Specialty Start Date End Date Deepthi Mc PA [address] [place] [address] PCP - General Family Practice 03/04/11
--- OUTSIDE RECORDS SUMMARY | 2024-11-02 16:01 | XMS_ITS | Clinical Summary ---
Author Organization [facility] Address [address] [place] [address] Care Team Providers Care Print Finisher Name Role Phone Jesusita Deepthi Wilkins Primary Care Provider [phone] Allergies Active Allergy Reactions Criticality Noted Date [...] history of withdrawal seizures or withdrawal complications. [place] admission on 03/26/20 for alcohol withdrawal and discharged on 03/28/20. Patient is interested in quitting. Has previously tried clonidine and naltrexone. Patient with history of alcohol abuse. No history of withdrawal seizures or withdrawal complications. [place] admission on 03/26/20 for alcohol withdrawal and discharged on 03/28/20. Patient is interested in quitting. Has previously tried clonidine and naltrexone. Patient with history of alcohol abuse. No history of withdrawal seizures or withdrawal complications. [place] admission on 03/26/20 for alcohol withdrawal and discharged on 03/28/20. Patient is interested in quitting. Has previously tried clonidine and naltrexone. Cyclical vomiting 04/04/2016 Social anxiety disorder 02/26/2016 PTSD (post-traumatic stress disorder) 05/16/2014 Overview (07/15/2021): Under the care of Dr. Rafat Falcon for mental health care. [facility] . Initial intake 12/10/12 Previous Medication Trials: [...] visit for cyclic vomiting; hospitalization at [facility] 05/03 (72 hr hold); 12/01 at [facility] History of Suicide Attempts: no Under the care of Dr. Rafat Falcon for mental health care. [facility] . Initial intake 12/10/12 Previous Medication Trials: [...] visit for cyclic vomiting; hospitalization at [facility] 05/03 (72 hr hold); 12/01 at [facility] History of Suicide Attempts: no Under the care of Dr. Rafat Falcon for mental health care. [facility] . Initial intake 12/10/12 Previous Medication Trials: [...] visit for cyclic vomiting; hospitalization at [facility] 05/03 (72 hr hold); 12/01 at [facility] History of Suicide Attempts: no Under the care of Dr. Rafat Falcon for mental health care. [facility] . Initial intake 12/10/12 Previous Medication Trials: [...] visit for cyclic vomiting; hospitalization at [facility] 05/03 (72 hr hold); 12/01 at [facility] History of Suicide Attempts: no Under the care of Dr. Rafat Falcon for mental health care. [facility] . Initial intake 12/10/12 Previous Medication Trials: [...] visit for cyclic vomiting; hospitalization at [facility] 05/03 (72 hr hold); 12/01 at [facility] History of Suicide Attempts: no Under the care of Dr. Rafat Falcon for mental health care. [facility] . Initial intake 12/10/12 Previous Medication Trials: [...] visit for cyclic vomiting; hospitalization at [facility] 05/03 (72 hr hold); 12/01 at [facility] History of Suicide Attempts: no Under the care of Dr. Rafat Falcon for mental health care. [facility] . Initial intake 12/10/12 Previous Medication Trials: [...] visit for cyclic vomiting; hospitalization at [facility] 05/03 (72 hr hold); 12/01 at [facility] History of Suicide Attempts: no Cannabis [...] Comments Blood Pressure 122/60 07/13/2024 6:16 AM [facility] Pulse 117 07/12/2024 10:01 PM [facility] Temperature 36.7 C (98.1 F) 07/12/2024 10:01 PM [facility] Respiratory Rate 30 07/12/2024 10:01 PM [facility] Oxygen Saturation 100% 07/12/2024 10:01 PM [facility] Inhaled Oxygen Concentration - - Weight 98.9 kg (218 lb) 07/12/2024 10:01 PM [facility] Height 182.9 cm (6') 07/11/2024 3:12 PM [facility] Body Mass Index 29.57 07/11/2024 3:12 PM [facility] Plan of Treatment Health Maintenance Due Date [...] BASIC METABOLIC PANEL STAT 07/13/2024 1:19 AM [facility] from Last 3 Months or Most Recently Relevant to Health Maintenance Results * (ABNORMAL) Basic metabolic panel (07/13/2024 1:19 AM [facility] PRO[employer]ILE) Sodium 127(L) 135 - 145 mmol/L 07/13/2024 3:15 AM H[facility] PRO[facility]ILE [facility] Potassium 4.4 3.4 - 5.3 mmol/L 07/13/2024 3:15 AM H[facility] PRO[facility] Chloride 91(L) 98 - 107 mmol/L 07/13/2024 3:15 AM [facility] Carbon Dioxide (CO2) 23 22 - 29 mmol/L 07/13/2024 3:15 AM [facility] Anion Gap 13 7 - 15 mmol/L 07/13/2024 3:15 AM [facility] Urea Nitrogen 22.0(H) 6.0 - 20.0 mg/dL 07/13/2024 3:15 AM [facility] Creatinine 0.92 0.67 - 1.17 mg/dL 07/13/2024 3:15 AM [facility] GFR Estimate >90 >60 mL/min/1.7 3m2 07/13/2024 3:15 AM [facility] Comment:eGFR calculated usin 2020 CKD-EPI equation. Calcium 9.6 8.8 - 10.4 mg/dL 07/13/2024 3:15 AM [facility] Comment:Reference intervals for this test were updated on 02/03/2024 to reflect our healthy population more accurately. There may be differences in the flagging of prior results with similar values performed with this method. Those prior results can be interpreted in the context of the updated reference intervals. Glucose 91 70 - 99 mg/dL 07/13/2024 3:15 AM [facility] Blood BLOOD SPECIMEN / Unknown Venipuncture / Unknown 07/13/2024 1:19 AM [facility] 07/13/2024 1:23 AM [facility] us Jack Cornejo MD LAB - BLOOD ORDERABLES Final Res ult [facility] [address] [facility] [place] [address], [facility] from Last 3 Months or Most Recently Relevant to Health Maintenance Insurance [facility] Advance Directives For more information, please contact: [phone] Documents on File Type Date Recorded Patient Investment Banking Associate Expl anation Advance Directives and Living Will [...] Agents on File Name Relationship Healthcare Agent [facility] Communication Veronica Glass Mother First Alternate Health Care Agent Suzette De La Rosa Sister Health Care Agent Larry Sapp Father Second Alternate Health Care Agent Care Teams Print Finisher Relationship Specialty Start Date End Date Deepthi Mc [address] [place] [address] PCP - General Physician Car Pincher 06/15/23
--- OUTSIDE RECORDS SUMMARY | 2024-11-02 16:01 | XMS_ITS | Clinical Summary ---
Author Organization [facility] Address [address] [place] [address] Care Team Providers Care English As A Second Language Instructor Name Role Phone Elsewhere, Pcp Primary Care Provider Unavailabl e Source Comments Patient records contain information from all sites at [facility]. For routine questions regarding patient records, call [phone] during business hours, M-F 8:00 AM - 5:00 PM Central Time. Record requests for emergency care only can be directed to [phone] at any time.[facility] Allergies Active Allergy Reactions Criticality Noted Date [...] history of withdrawal seizures or withdrawal complications. [place] admission on 03/26/20 for alcohol withdrawal and discharged on 03/28/20. Patient is interested in quitting. Has previously tried clonidine and naltrexone. Insomnia 09/19/2016 Cyclical Vomiting Syndrome Unrelated To Migraine 04/04/2016 Depressive Disorder 05/16/2014 Anxiety Generalized Disorder 12/03/2013 Overview (03/26/2020): Under the care of Dr. Rafat Falcon for mental health care. [facility] . Initial intake 12/10/12 Previous Medication [...] ER visit for cyclic vomiting; hospitalization at [facility] 05/03 (72 hr hold); 12/01 at [facility] History of Suicide Attempts: no [...] CDT - 10/08/2024 11:18 PM CDT Emergency [facility] Emergency Department [address] [place] [id number] Albert Pitts M.D., M.H.P.E. Nausea And [...] e alcohol) 750 ml straight Vodka Daily [employer] Utilities Answer Date Recorded In the past 12 months has e [employer] [place], oil, or water [employer] threatened to shut off services in [...] your living situation today? 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 LAB BLOOD NON ADD-ON Final Result [facility] [address] [place] [address], [place] DTL [facility] [address] [place] [address] * (ABNORMAL) Hepatic Function Panel (10/08/2024 4:52 [...] P.A.-C. LAB BLOOD [place] [address], [address] [address] * (ABNORMAL) Morphology Eval (special smear) (10/08/2024 [...] Reviewed by: Lucy 10/08/2024 6:02 PM CDT [facility] Blood 10/08/2024 4:52 PM CDT 10/08/2024 5:09 PM CDT Christian Landa P.A.-C. LAB BLOOD ADD-ON Final Res ult [facility] [address] [place] [address], [facility] [address] [place] [address] * (ABNORMAL) CBC with Differential, Blood (10/08/2024 [...] - 6.45 x10(9)/L 10/08/2024 6:01 PM CDT [facility] Comment:Auto-diff results no t valid. See manual differential. Blood (Blood, Venous) 10/08/2024 4:52 PM CDT 10/08/2024 5:09 PM CDT Christian Landa P.A.-C. LAB BLOOD ADD-ON Final Res ult Performing Organization Address City/[facility]/ZIP Co de Phone Number [facility] [address] [place] [address], [facility] [address] [place], [place] [id number] [place] [address] [address] [place] [address] * Magnesium (10/08/2024 4:52 PM CDT) Magnesium, P 2.3 1.7 - 2.3 mg/dL 10/08/2024 5:31 PM CDT [facility] Blood (Blood, Venous) 10/08/2024 4:52 PM CDT 10/08/2024 5:10 PM CDT Christian Landa P.A.-C. LAB BLOOD ADD-ON Final Res ult Performing Organization Address [facility] Co de Phone Number [facility] [address] [place], [place] [id number] [place] [address] [address] [place] [address] * (ABNORMAL) Lipase (10/08/2024 4:52 PM CDT) Lipase, S 92(H) 13 - 60 U/L 10/08/2024 5: 55 PM CDT DTL Blood (Blood, Venous) 10/08/2024 4:52 PM CDT 10/08/2024 5:35 PM CDT Christian Landa P.A.-C. LAB BLOOD ADD-ON Final Res ult [facility] [address] [place] [address], [facility] DTL [facility] [address] [place] [address] * (ABNORMAL) Basic Metabolic Panel (10/08/2024 4:52 [...] P.A.-C. LAB BLOOD ADD-ON Final Res ult [facility] [address] [place] [address], [facility] [address] [place] [address] * ECG 12 Lead (10/08/2024 4:22 PM CDT) Ventricular Rate ECG/Min 99 BPM MUSE MO Interval 138 ms MUSE QRSD Interval 86 ms MUSE QT Interval 374 ms MUSE QTC Interval 479 ms MUSE P [place] 62 degrees MUSE R [place] 60 degrees MUSE T Wave [place] 43 degrees MUSE 10/08/2024 4:22 PM CDT [...] MUSE NA from Last 3 Months Insurance [facility] Advance Directives For more information, please contact: [phone] * Full Code (Latest Code Status on [...] Due to: Not medically appropriate Care Teams English As A Second Language Instructor Relationship Specialty Start Date End Date Elsewhere, Pcp PCP - General Internal Medicine 03/26/24
--- OUTSIDE RECORDS SUMMARY | 2024-11-02 16:01 | XMS_ITS ---
Author Organization [facility] Address [address] [place], [place] [id number] Phone Care Team Providers Care Liability Analyst Name Role Phone CLAIRE TEAJDA Attending Unavailable NO FAMILY PHYSICIAN Primary Unavailable [...] Code Sys tem Cyclical vomiting syndrome 10/28/2023 [id number] S NOMED-CT Personal Care Team Section Performer Name Performer Role Active Date Inactive Da te
--- OUTSIDE RECORDS SUMMARY | 2024-11-02 16:02 | XMS_ITS | Encounter Summary ---
Author Organization [facility] Address [facility] [place] [address] Care Team Providers Care Business Administration Instructor Name Role Phone Rajan Mcpeace Wilkins Primary Care Provider [phone] Reason for Visit * Reason Onset Date Comments MH/CD Inpatient 12/08/2013 Encounter Details Date Type Department Care Team ([facility] Contact Info) Description 12/08/2013 Telephone [facility] Behavioral Health Intake [address] [place] [phone] Generic, Behavioral Intake, MH/CD Inpatient Social History [...] 12/08/2013 11:23 AM CDT S: Katarzyna from [facility] calling requesting Psych bed for pt. # [phone] B: Pt was BIB mother to [facility] 12/06/13 for self induced vomiting; OCD [...] have not pursued commitment at this time. [facility] will be unable to take him at this time. If commitment is supported by [facility], I invited Katarzyna to call back and check on bed availability. documented in this encounter Plan of Treatment Not on file documented as of this encounter Visit Diagnoses Not on filedocumented in this encounter Additional Health Concerns Infection Onset Date Last Indicated Resolved Time Rule Out C-difficile 08/13/2023 08/13/2023 024 8:43 AM BLACK JACK DEALER documented as of this encounter Care Teams Business Administration Instructor Relationship Specialty Start Date End Date Deepthi Mc [address] [place] [address] PCP - General Physician Blank Driller 06/15/23 documented as of this encounter
--- NOTE | 2024-11-02 16:06 | ED_ITS ---
HPI - General Adult General Date Seen: 11/02/24 Chief complaint: Nausea/Vomiting Stated complaint: vomiting, tremors Time Seen by Provider: 11/02/24 15:26 History of Present Illness HPI narrative: Patient is a 29-year-old male with a history of cyclic vomiting and substance abuse related to cannabis and alcohol, here with vomiting which started this morning. He has previously reportedly been in treatment but tells me that he is relapsed, currently using both marijuana and alcohol, living with his mother. His mom says that he has been looking into a 3 month treatment program but was supposed to go to the clinic to fill out some paperwork and did not go because he was not feeling well. He is also supposed to be on Protonix because of esophageal erosions but is not currently taking that. He reports typical symptoms of vomiting and lower abdominal pain. No atypical features of today symptoms. As is typical, he immediately is requesting medications, is not really interested in talking about anything else. He says what worked well for him last time was Zyprexa, Benadryl, Toradol and Reglan. Related Data Home Medications ?Medication ?Instructions ?Recorded ?Confirmed desvenlafaxine succinate 50 mg 50 mg PO DAILY 02/13/22 11/02/24 tablet,extended release 24 hr hydroxyzine HCl 25 mg tablet 25 - 50 mg PO Q6H PRN 02/13/22 11/02/24 lisinopril 10 mg tablet 10 mg PO DAILY 02/13/22 11/02/24 lorazepam 0.5 mg tablet 0.5 mg PO DAILY PRN 02/13/22 11/02/24 ondansetron 4 mg disintegrating 4 mg PO Q8H PRN 02/13/22 11/02/24 tablet prochlorperazine 25 mg rectal 25 mg IA Q12H PRN 02/13/22 11/02/24 suppository trazodone 50 mg tablet 25 mg PO HS PRN 08/14/22 11/02/24 clonidine 0.1 mg/24 hr weekly 1 patch topical .weekly 05/12/24 11/02/24 transdermal patch dextroamphetamine-amphetamine 10 5 - 10 mg PO DAILY 05/12/24 11/02/24 mg tablet (Adderall) dextroamphetamine-amphetamine ER 20 mg PO DAILY 10/23/24 04/15/25 20 mg 24hr capsule,extend release (Adderall XR) gabapentin 600 mg tablet 600 mg PO HS 05/12/24 11/02/24 melatonin 3 mg tablet 3 mg PO HS PRN 05/12/24 11/02/24 naltrexone 50 mg tablet 50 mg PO DAILY 05/12/24 11/02/24 Previous Rx's ?Medication ?Instructions ?Recorded potassium bicarbonate-citric acid 25 meq PO BID #4 ea 05/13/24 25 mEq effervescent tablet sodium chloride 1,000 mg soluble 1,000 mg PO TID #10 tabs 05/13/24 tablet promethazine 50 mg rectal 50 mg IA Q6H PRN #12 ea 09/21/24 suppository Allergies Allergy/AdvReac Type Severity Reaction Status Date / Time haloperidol (From Haldol) Allergy Verified 11/02/24 15:05 olanzapine (From Zyprexa) AdvReac Intermediate Cramping Verified 11/02/24 15:05 of the Muscles Review of Systems Status of ROS: Reports: 6 or more systems reviewed and unremarkable except as noted in History and below [facility] Medical History Cannabinoid hyperemesis syndrome ?R11.2 - Nausea with vomiting, unspecified (ICD-10) ?F12.90 - Cannabis use, unspecified, uncomplicated (ICD-10) Cannabinosis ?J66.2 - Cannabinosis (ICD-10) Severe anxiety with panic ?F41.0 - Panic disorder [episodic paroxysmal anxiety] (ICD-10) Normal colonoscopy Normal esophagogastroduodenoscopy (EGD) ?Z01.89 - Encounter for other specified special examinations (ICD-10) Cyclical vomiting ?R11.15 - Cyclical vomiting syndrome unrelated to migraine (ICD-10) Anxiety ?F41.9 - Anxiety disorder, unspecified (ICD-10) Substance abuse ?F19.10 - Other psychoactive substance abuse, uncomplicated (ICD-10) Surgical History History of myringotomy ?Z98.890 - Other specified postprocedural states (ICD-10) Family History Father Alcohol dependence Drug dependence Suicidal behavior with attempted self-injury Social History Narrative: Patient lives with his mother and stepfather; 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 His mother is healthcare power of auto damage trainee and code status is full. History of alcohol and cannabis abuse. Current cigarette smoking. What is your current living situation?: declined to answer Problems where you live: declined to answer In the past 12 months, utilities in danger of being shut off: declined to answer In past 12 months, lack of transportation kept you from medical appts, meetings, work, or getting things needed for daily living: declined to answer In the past 12 mos, have been you worried that your food would run out before you had money to buy more?: declined to answer In the past 12 mos, the food you bought just didn't last and you didn't have money to buy more?: declined to answer Highest level of school completed/degree received: Associate degree: occupational, technical, vocational program Smoking Status: Current every day smoker What tobacco products do you use: cigarettes Smoking packs per day: 0.5 Smoking cigarettes per day: 10.0 Years smoked: 10 Smoking pack-years: 5.00 Smoking quit date/years: >15 years ago Do you use any of these nicotine containing products: E-Cigarettes and Vaping Products Second hand tobacco smoke exposure: No How often do you have a drink containing alcohol: 4 or more times a week Alcohol type: hard liquor How many standard drinks containing alcohol do you have on a typical day: 5 or 6 How often do you have six or more drinks on one occasion: Daily or almost daily AUDIT-C Alcohol total score: 10 Non-prescribed substance use: marijuana (any form) Caffeine: Yes How often does anyone, including family, friends and others, physically hurt you : decline to answer How often does anyone, including family, friends and others, insult or talk down to you: decline to answer How often does anyone, including family, friends and others, threaten you with harm: decline to answer How often does anyone, including family, friends and others, scream or curse at you: decline to answer service: No Health Related Social Needs: unsheltered homelessness (Z59.02) Exam Narrative: Exam Narrative: Vital signs reviewed, tachycardic. General, he is relatively calm today, lying in bed. No active vomiting. Heart: Tachycardic, regular. Abdomen: Soft, nontender. Skin: Mildly diaphoretic. Warm. Affect: Normal. Const: Vital Signs, click to edit/add: Vital Signs - 24 hr 11/02/24 15:06 11/02/24 17:15 Temperature 96.7 F L 97.5 F L Pulse Rate [Pulse Oximeter] 120 H 119 H Respiratory Rate 20 18 Blood Pressure [Ri ght Upper Arm] 199/81 H 156/107 H Pulse Oximetry 98 99 Oxygen Delivery Me thod Room Air Course Course ED Course: I reviewed his recent records, his his treatment plans have been a little more erratically lately. It does sound like he has gone to of fair number of different hospitals recently as well, he has been at [facility] and [facility] as well as here. His mom reports that most recently he was at [facility], she reminded him that they started with just a couple of medications and then added things in his they went. Am going to give him Zyprexa and Benadryl to start. He has gotten Ativan the last few times he has been here, thus far he has not brought that up. After his Zyprexa and Benadryl he had continued retching, he does get up and go to the sink and induce vomiting. I gave him Phenergan IM. He continued to state that he did not feel well after that. He said he felt he needed Ativan as well as Toradol. Labs are fairly reassuring. He had a gap of 20 and a CO2 of 18, normal potassium and a magnesium of 1.8. I did give him Ativan 0.5 mg IM as well as Toradol 30 mg IM. Plan will be to discharge home. As usual I have encouraged him to seek treatment for his substance dependence. Vital Signs Vital signs: Initial Vital Signs Temperature 96.7 F L 11/02/24 15:06 Temperature Source Temporal Artery Scan 11/02/24 15:06 Pulse Rate 120 H 11/02/24 15:06 Respiratory Rate 20 11/02/24 15:06 Blood Pressure 199/81 H 11/02/24 15:06 Blood Pressure Mean 120 H 11/02/24 15:06 Pulse Oximetry 98 11/02/24 15:06 Oxygen Delivery Method Room Air 11/02/24 15:06 Vital Signs Temperature 96.7 F L 11/02/24 15:06 Pulse Rate 120 H 11/02/24 15:06 Respiratory Rate 20 11/02/24 15:06 Blood Pressure 199/81 H 11/02/24 15:06 Pulse Oximetry 98 11/02/24 15:06 Oxygen Delivery Method Room Air 11/02/24 15:06 Temperature 97.5 F L 11/02/24 17:15 Pulse Rate 119 H 11/02/24 17:15 Respiratory Rate 18 11/02/24 17:15 Blood Pressure 156/107 H 11/02/24 17:15 Pulse Oximetry 99 11/02/24 17:15 Oxygen Delivery Method Room Air 11/02/24 15:06 Medications Administered Medications: Discontinued Medications Generic Name Dose Route Start Last Admin Trade Name Freq PRN Reason Stop Dose Admin Diphenhydramine HCl 50 mg 11/02/24 15:33 11/02/24 16:01 Diphenhydramine 50 Mg/Ml Inj IM 11/02/24 15:34 50 mg ONCE ONE Administration Ketorolac Tromethamine 30 mg 11/02/24 18:47 11/02/24 18:58 Ketorolac 30 Mg/Ml Inj IM 11/02/24 18:48 30 mg ONCE ONE Administration Lorazepam 0.5 mg 11/02/24 18:47 11/02/24 18:58 Lorazepam 2 Mg/Ml Inj IM 11/02/24 18:48 0.5 mg ONCE ONE Administration Olanzapine 10 mg 11/02/24 15:33 11/02/24 16:01 Olanzapine 5 Mg/Ml Inj IM 11/02/24 15:34 10 mg ONCE ONE Administration Promethazine HCl 25 mg 11/02/24 16:50 11/02/24 17:12 Promethazine 25 Mg/Ml Inj IM 11/02/24 16:51 25 mg ONCE ONE Administration Medical Decision Making Lab Data Labs: Lab Results 11/02/24 Range/Units 15:43 Sodium 139 (135-149) mmol/L Potassium 4.1 (3.6-5.1) mmol/L Chloride 101 (96-114) mmol/L Carbon Dioxide 18 L (20-32) mmol/L Anion Gap 20 H (7-15) mEq/L BUN 24 (5-24) mg/dL Creatinine 0.9 (0.5-1.5) mg/dL Estimated Creat Clear 132.93 Estimated GFR 119 ml/min Glucose 86 (60-115) mg/dL Calcium 9.8 (8.4-10.6) mg/dL Magnesium 1.8 (1.5-2.6) mg/dL Discharge Plan Discharge Clinical Impression: Cyclical vomiting, Polysubstance abuse Patient Disposition: Home w/ Parent or Adult Condition: Improved Instructions: Cyclic Vomiting Syndrome (ED) Additional Instructions: Encourage you to seek out inpatient chemical dependency treatment as we discussed. Return as needed to the ER for symptomatic control. Prescriptions: No Action lorazepam 0.5 mg tablet 0.5 mg PO DAILY PRN prochlorperazine 25 mg suppository 25 mg IA Q12H PRN lisinopril 10 mg tablet 10 mg PO DAILY hydroxyzine HCl 25 mg tablet 25 - 50 mg PO Q6H PRN ondansetron 4 mg tablet,disintegrating 4 mg PO Q8H PRN Patient Comments: DISSOLVE 1 TABLET ON THE TONGUE EVERY 8 HOURS NEEDED FOR NAUSEA OR VOMITING desvenlafaxine succinate 50 mg tablet extended release 24 hr 50 mg PO DAILY trazodone 50 mg tablet 25 mg PO HS PRN clonidine 0.1 mg/24 hr patch weekly 1 patch topical .weekly melatonin 3 mg tablet 3 mg PO HS PRN dextroamphetamine-amphetamine [Adderall XR] 20 mg capsule,extended release 24hr 20 mg PO DAILY dextroamphetamine-amphetamine [Adderall] 10 mg tablet 5 - 10 mg PO DAILY gabapentin 600 mg tablet 600 mg PO HS naltrexone 50 mg tablet 50 mg PO DAILY sodium chloride 1,000 mg tablet,soluble 1,000 mg PO TID Qty: 10 0RF potassium bicarb-citric acid 25 mEq tablet, effervescent 25 meq PO BID Qty: 4 0RF promethazine 50 mg suppository 50 mg IA Q6H PRNQty: 12 0RF Follow Up/Referrals: Deepthi Mc PA-C [Primary Care Provider] - Stand [facility] Info Inst[facility]
[2024-11-02 16:08] LABS: Chloride* 101 mmol/L (96-114); Potassium* 4.1 mmol/L (3.6-5.1); Sodium* 139 mmol/L (135-149)
[2024-11-02 16:11] LABS: Anion Gap 20 mEq/L (7-15); Blood Urea Nitrogen* 24 mg/dL (5-24); Calcium* 9.8 mg/dL (8.4-10.6); Carbon Dioxide* 18 mmol/L (20-32); Creatinine* 0.9 mg/dL (0.5-1.5); Est. Creatinine Clearance* 132.93; Estimated Glomerular Filt Rate 119 ml/min; Glucose* 86 mg/dL (60-115); Magnesium* 1.8 mg/dL (1.5-2.6)
[2024-11-02] MEDS: PROMETHAZINE 25 MG/ML INJ IM (17:12)
[2024-11-02 17:15] VITALS: BP 156/107; PULSE 119; RESP 18; TEMP 36.4; O2SAT 99
[2024-11-02] MEDS: LORazepam 2 MG/ML inj 0.5 MG IM (18:58)
[2024-11-02] MEDS: KETOROLAC 30 MG/ML inj IM (18:58)
== END 2024-11-02 19:47 | disposition home or self-care (01) ==
PROVIDERS: Emergency Provider Emergency Medicine; PCP Physician Assistant Medical
DX: R11.15 Cyclical vomiting syndrome unrelated to migraine (principal); F19.10 Other psychoactive substance abuse, uncomplicated
CPT/HCPCS: 36415; 80048; 83735; 96372; 99284; J1200; J1885; J2060; J2550

== ENCOUNTER 2024-11-20 21:12 | Emergency (ER) | payer BC, SELFPAY ==
[2024-11-20 21:21] VITALS: BP 150/99; PULSE 117; RESP 16; TEMP 36.6; O2SAT 98; BMI 32.5
--- NOTE | 2024-11-20 21:46 | ED_ITS ---
HPI - General Adult General Chief complaint: Laceration/Wound Stated complaint: right thumb laceration Time Seen by Provider: 11/20/24 21:46 History of Present Illness HPI narrative: Patient has a laceration to their R thumb that happened around 20:30 tonight. They cut their thumb with a piece of metal while making jewlery. Patients states their tetanus is up to date. 29-year-old young man presenting to the emergency department following a laceration to his right thumb that occurred a little less than an hour prior to arrival. 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 Slipped and sliced his thumb. Has managed to control bleeding. Is quite certain that will need suturing. Related Data Home Medications ?Medication ?Instructions ?Recorded ?Confirmed desvenlafaxine succinate 50 mg 50 mg PO DAILY 02/13/22 12/04/24 tablet,extended release 24 hr hydroxyzine HCl 25 mg tablet 25 - 50 mg PO Q6H PRN 02/13/22 12/04/24 lisinopril 10 mg tablet 10 mg PO DAILY 02/13/22 12/04/24 lorazepam 0.5 mg tablet 0.5 mg PO DAILY PRN 02/13/22 12/04/24 ondansetron 4 mg disintegrating 4 mg PO Q8H PRN 02/13/22 12/04/24 tablet prochlorperazine 25 mg rectal 25 mg MA Q12H PRN 02/13/22 12/04/24 suppository trazodone 50 mg tablet 25 mg PO HS PRN 08/14/22 12/04/24 clonidine 0.1 mg/24 hr weekly 1 patch topical .weekly 05/12/24 12/04/24 transdermal patch dextroamphetamine-amphetamine 10 5 - 10 mg PO DAILY 05/12/24 12/04/24 mg tablet (Adderall) dextroamphetamine-amphetamine ER 20 mg PO DAILY 05/12/24 12/04/24 20 mg 24hr capsule,extend release (Adderall XR) gabapentin 600 mg tablet 600 mg PO HS 05/12/24 12/04/24 melatonin 3 mg tablet 3 mg PO HS PRN 05/12/24 12/04/24 naltrexone 50 mg tablet 50 mg PO DAILY 05/12/24 12/04/24 Previous Rx's ?Medication ?Instructions ?Recorded potassium bicarbonate-citric acid 25 meq PO BID #4 ea 05/13/24 25 mEq effervescent tablet sodium chloride 1,000 mg soluble 1,000 mg PO TID #10 tabs 05/13/24 tablet promethazine 50 mg rectal 50 mg MA Q6H PRN #12 ea 09/21/24 suppository Allergies Allergy/AdvReac Type Severity Reaction Status Date / Time haloperidol (From Haldol) Allergy Verified 12/04/24 15:46 Review of Systems Status of ROS: Reports: 6 or more systems reviewed and unremarkable except as noted in History and below PFSH [facility] Medical History Cannabinoid hyperemesis syndrome ?R11.2 - Nausea with vomiting, unspecified (ICD-10) ?F12.90 - Cannabis use, unspecified, uncomplicated (ICD-10) Cannabinosis ?J66.2 - Cannabinosis (ICD-10) Severe anxiety with panic ?F41.0 - Panic disorder [episodic paroxysmal anxiety] (ICD-10) Normal colonoscopy Normal esophagogastroduodenoscopy (EGD) ?Z01.89 - Encounter for other specified special examinations (ICD-10) Cyclical vomiting ?R11.15 - Cyclical vomiting syndrome unrelated to migraine (ICD-10) Anxiety ?F41.9 - Anxiety disorder, unspecified (ICD-10) Substance abuse ?F19.10 - Other psychoactive substance abuse, uncomplicated (ICD-10) Surgical History History of myringotomy ?Z98.890 - Other specified postprocedural states (ICD-10) Family History Father Alcohol dependence Drug dependence Suicidal behavior with attempted self-injury Social History Narrative: Patient lives with his mother and stepfather; 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 His mother is healthcare power of collections attorney and code status is full. History of alcohol and cannabis abuse. Current cigarette smoking. What is your current living situation?: declined to answer Problems where you live: declined to answer In the past 12 months, utilities in danger of being shut off: declined to answer In past 12 months, lack of transportation kept you from medical appts, meetings, work, or getting things needed for daily living: declined to answer In the past 12 mos, have been you worried that your food would run out before you had money to buy more?: declined to answer In the past 12 mos, the food you bought just didn't last and you didn't have money to buy more?: declined to answer Highest level of school completed/degree received: Associate degree: occupational, technical, vocational program Smoking Status: Current every day smoker What tobacco products do you use: cigarettes Smoking packs per day: 0.5 Smoking cigarettes per day: 10.0 Years smoked: 10 Smoking pack-years: 5.00 Smoking quit date/years: >15 years ago Do you use any of these nicotine containing products: E-Cigarettes and Vaping Products Second hand tobacco smoke exposure: No How often do you have a drink containing alcohol: 4 or more times a week Alcohol type: hard liquor How many standard drinks containing alcohol do you have on a typical day: 5 or 6 How often do you have six or more drinks on one occasion: Daily or almost daily AUDIT-C Alcohol total score: 10 Non-prescribed substance use: marijuana (any form) Caffeine: Yes How often does anyone, including family, friends and others, physically hurt you : decline to answer How often does anyone, including family, friends and others, insult or talk down to you: decline to answer How often does anyone, including family, friends and others, threaten you with harm: decline to answer How often does anyone, including family, friends and others, scream or curse at you: decline to answer service: No Health Related Social Needs: unsheltered homelessness (Z59.02) Exam Narrative: Exam Narrative: Pleasant. NAD. Favoring right thumb. Is breathing easily. Removing dressing reveals an irregular 3 quarter-inch angled laceration in the volar aspect of the proximal phalanx of the right thumb. There appears to be a little numbness distally. Good strength. I do not see any other injury to deeper structures. Const: Vital Signs, click to edit/add: Vital Signs - 24 hr 11/20/24 21:21 Temperature 97.8 F Pulse Rate [Left P ulse Oximeter] 117 H Respiratory Rate 16 Blood Pressure [Ri ght Upper Arm] 150/99 H Pulse Oximetry 98 Oxygen Delivery Me thod Room Air Documenting provider has reviewed patient's vital signs: yes Course Vital Signs Vital signs: Initial Vital Signs Temperature 97.8 F 11/20/24 21:21 Temperature Source Temporal Artery Scan 11/20/24 21:21 Pulse Rate 117 H 11/20/24 21:21 Respiratory Rate 16 11/20/24 21:21 Blood Pressure 150/99 H 11/20/24 21:21 Blood Pressure Mean 116 H 11/20/24 21:21 Blood Pressure Position Sitting 11/20/24 21:21 Pulse Oximetry 98 11/20/24 21:21 Oxygen Delivery Method Room Air 11/20/24 21:21 Vital Signs Temperature 97.8 F 11/20/24 21:21 Pulse Rate 117 H 11/20/24 21:21 Respiratory Rate 16 11/20/24 21:21 Blood Pressure 150/99 H 11/20/24 21:21 Pulse Oximetry 98 11/20/24 21:21 Oxygen Delivery Method Room Air 11/20/24 21:21 Temperature 97.8 F 11/20/24 21:21 Pulse Rate 117 H 11/20/24 21:21 Respiratory Rate 16 11/20/24 21:21 Blood Pressure 150/99 H 11/20/24 21:21 Pulse Oximetry 98 11/20/24 21:21 Oxygen Delivery Method Room Air 11/20/24 21:21 Medical Decision Making MDM Narrative Medical decision making narrative: Does not gap terribly with flexion/movement of thumb. As described activity however this would benefit from suturing. Returned to anesthetize in a digital block with lidocaine. Very good wound anesthesia achieved. Cleansed further with Shur-Clens solution. Sutured with interrupted Ethilon sutures. Pretty good control of bleeding achieved though slight oozing I think will be necessitating a light pressure dressing. Placed antibiotic ointment and Band-Aid and then wrapped with Balaji and Coban See patient discharge plan for further discussion As requested can cover with glue provided. Once fully dry, Band-Aid to protect I think to allow for placement of some gauze wrap as I think it will need a light pressure dressing overnight. Watch for spreading redness after 2 days, marked increase in pain or swelling, purulent drainage. Sutures out in, well considering how you use your hands, I would probably wait 10 to 12 days. Okay to get wet but avoid soaking well sutures are in. Medical Records Medical records reviewed: Yes I reviewed the patient's medical records Discharge Plan Discharge Clinical Impression: Finger laceration Patient Disposition: Home w/ Parent or Adult Condition: Improved Additional Instructions: As requested can cover with glue provided. Once fully dry, Band-Aid to protect I think to allow for placement of some gauze wrap as I think it will need a light pressure dressing overnight. Watch for spreading redness after 2 days, marked increase in pain or swelling, purulent drainage. Sutures out in, well considering how you use your hands, I would probably wait 10 to 12 days. Okay to get wet but avoid soaking well sutures are in. Prescriptions: No Action lorazepam 0.5 mg tablet 0.5 mg PO DAILY PRN prochlorperazine 25 mg suppository 25 mg MA Q12H PRN lisinopril 10 mg tablet 10 mg PO DAILY hydroxyzine HCl 25 mg tablet 25 - 50 mg PO Q6H PRN ondansetron 4 mg tablet,disintegrating 4 mg PO Q8H PRN Patient Comments: DISSOLVE 1 TABLET ON THE TONGUE EVERY 8 HOURS NEEDED FOR NAUSEA OR VOMITING desvenlafaxine succinate 50 mg tablet extended release 24 hr 50 mg PO DAILY trazodone 50 mg tablet 25 mg PO HS PRN clonidine 0.1 mg/24 hr patch weekly 1 patch topical .weekly melatonin 3 mg tablet 3 mg PO HS PRN dextroamphetamine-amphetamine [Adderall XR] 20 mg capsule,extended release 24hr 20 mg PO DAILY dextroamphetamine-amphetamine [Adderall] 10 mg tablet 5 - 10 mg PO DAILY gabapentin 600 mg tablet 600 mg PO HS naltrexone 50 mg tablet 50 mg PO DAILY sodium chloride 1,000 mg tablet,soluble 1,000 mg PO TID Qty: 10 0RF potassium bicarb-citric acid 25 mEq tablet, effervescent 25 meq PO BID Qty: 4 0RF promethazine 50 mg suppository 50 mg MA Q6H PRNQty: 12 0RF Follow Up/Referrals: Deepthi Mc PA-C [Primary Care Provider] - Stand Alone Forms: [facility] Info Instructions
--- OUTSIDE RECORDS SUMMARY | 2024-11-20 22:07 | XMS_ITS | Clinical Summary ---
Author Organization [facility] Address [address] [place] [address] Care Team Providers Care Varnish Inspector Name Role Phone Elsewhere, Pcp Primary Care Provider Unavailabl e Source Comments Patient records contain information from all sites at [facility]. For routine questions regarding patient records, call [phone] during business hours, M-F 8:00 AM - 5:00 PM Central Time. Record requests for emergency care only can be directed to [phone] at any time.[facility] Allergies Active Allergy Reactions Criticality [...] history of withdrawal seizures or withdrawal complications. [place] admission on 03/26/20 for alcohol withdrawal and discharged on 03/28/20. Patient is interested in quitting. Has previously tried clonidine and naltrexone. Insomnia 09/19/2016 Cyclical Vomiting Syndrome Unrelated To Migraine 04/04/2016 Depressive Disorder 05/16/2014 Anxiety Generalized Disorder 12/03/2013 Overview (03/26/2020): Under the care of Dr. Rafat Falcon for mental health care. [facility] . Initial intake 12/10/12 Previous Medication [...] ER visit for cyclic vomiting; hospitalization at [facility] 05/03 (72 hr hold); 12/01 at [...] CDT - 10/08/2024 11:18 PM CDT Emergency [facility] Department [address] [place] [phone] Albert Pitts M.D., M.H.P.E. Nausea And [...] e alcohol) 750 ml straight Vodka Daily [employer] Utilities Answer Date Recorded In the past 12 months has e [employer], oil, or water [employer] threatened to shut off services in your [...] your living situation today? 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 LAB BLOOD NON ADD-ON Final Result [facility] [address] [place] [address], [place] DTL [facility] [address] [place] [address] * (ABNORMAL) Hepatic Function Panel (10/08/2024 4:52 [...] P.A.-C. LAB [place]OD [place] [address], [address] [address] * (ABNORMAL) Morphology Eval (special smear) (10/08/2024 [...] Reviewed by: Lucy 10/08/2024 6:02 PM CDT [facility] Blood 10/08/2024 4:52 PM CDT 10/08/2024 5:09 PM CDT Christian Landa P.A.-C. LAB BLOOD ADD-ON Final Res ult [facility] [address] [place] [address], [facility] [address] [place] [address] * (ABNORMAL) CBC with Differential, Blood (10/08/2024 [...] - 6.45 x10(9)/L 10/08/2024 6:01 PM CDT [facility] Comment:Auto-diff results no t valid. See manual differential. Blood (Blood, Venous) 10/08/2024 4:52 PM CDT 10/08/2024 5:09 PM CDT Christian Landa P.A.-C. LAB BLOOD ADD-ON Final Res ult Performing Organization Address City/[facility]/ZIP Co de Phone Number [facility] [address] [place] [address], [facility] [address] [place], [place] [address] [place] [address] [address] [place] [address] * Magnesium (10/08/2024 4:52 PM CDT) Magnesium, P 2.3 1.7 - 2.3 mg/dL 10/08/2024 5:31 PM CDT [facility] Blood (Blood, Venous) 10/08/2024 4:52 PM CDT 10/08/2024 5:10 PM CDT Christian Landa P.A.-C. LAB BLOOD ADD-ON Final Res ult Performing Organization Address [facility] Co de Phone Number [facility] [address] [place], [place] [id number] [place] [address] 200 [place] [address] * (ABNORMAL) Lipase (10/08/2024 4:52 PM CDT) Lipase, S 92(H) 13 - 60 U/L 10/08/2024 5: 55 PM CDT DTL Blood (Blood, Venous) 10/08/2024 4:52 PM CDT 10/08/2024 5:35 PM CDT Christian Landa P.A.-C. LAB BLOOD ADD-ON Final Res ult [facility] [address] [place] [address], [facility] DTL [facility] [address] [place] [address] * (ABNORMAL) Basic Metabolic Panel (10/08/2024 4:52 [...] P.A.-C. LAB BLOOD ADD-ON Final Res ult [facility] [address] [place] [address], [facility] [address] [place] [address] * ECG 12 Lead (10/08/2024 4:22 PM CDT) Ventricular Rate ECG/Min 99 BPM MUSE [place] Interval 138 ms MUSE QRSD Interval 86 ms MUSE QT Interval 374 ms MUSE QTC Interval 479 ms MUSE P [place] 62 degrees MUSE R [place] 60 degrees MUSE T Wave [place] 43 degrees MUSE 10/08/2024 4:22 PM CDT [...] MUSE NA from Last 3 Months Insurance [facility] Advance Directives For more information, please contact: [phone] * Full Code (Latest Code Status on [...] Due to: Not medically appropriate Care Teams Varnish Inspector Relationship Specialty Start Date End Date Elsewhere, Pcp PCP - General Internal Medicine 03/26/24
--- OUTSIDE RECORDS SUMMARY | 2024-11-20 22:07 | XMS_ITS ---
Author Organization Unknown Address [address] [place], [place] [id number] Phone Care Team Providers Care Sawdust Drier Name Role Phone CLAIRE TEJADA Attending Unavailable [...] Code Sys tem Cyclical vomiting syndrome 10/28/2023 [id number] S NOMED-CT Personal Care Team Section Performer Name Performer Role Active Date Inactive Da te
--- OUTSIDE RECORDS SUMMARY | 2024-11-20 22:07 | XMS_ITS | Encounter Summary ---
Author Organization [facility] Address [address] [place] [address] Care Team Providers Care Power Washer Name Role Phone Elsewhere, Pcp Primary Care Provider Unavailabl e Reason for Visit * Reason Comments Vomiting Encounter Details Date Type Department Care Team ([facility] st Contact Info) Description 10/08/2024 4:05 PM CDT - 10/08/2024 11:18 PM CDT Emergency [facility] Emergency Department [address] [place] [address] Albert Pitts M.D., M.H.P.E. [address] [place] [phone] Nausea And Vomiting (Primary Dx); Cyclical Vomiting Syndrome Unrelated To Migraine; Hypokalemia Discharge Disposition: Home or Self Care Social History Tobacco Use Types Packs/Day Years Used Date Smoking Tobacco: Every Day Cigarettes 0.5 8 Smokeless Tobacco: Never Comments:x 5 daily Alcohol Use Standard Drinks/Week Comments Yes 5 (1 standard drink = 0.6 oz pur e alcohol) 750 ml straight Vodka Daily [facility] Utilities Answer Date Recorded In the past 12 months has e [employer], gas, oil, or water [employer] threatened to shut off services in your [...] situation today? 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 Please take this medication as needed every 8 hours in order to control anxiety, nausea, and/or vomiting. Please cut down on your alcohol and marijuana usage. * Attachments The following attachments cannot be sent through Care Everywhere. * Cyclic Vomiting Syndrome Adult (Namibian) * Nausea and Vomiting Adult Vlva-wi-Cyfq (Namibian) * Hypokalemia (Namibian) documented in this encounter Medications at Time of Discharge amphetamine-dextro amphetamine (ADDERALL XR) 25 mg 24 [...] times a day as needed (panic attack). LORazepam (Ativan) 1 mg tablet Take 1 mg by mouth at bedtime as needed. 09/27/2024 nicotine (NICODERM CQ) 21 mg/24 hr patch [...] (twelve) hours as needed for vomiting. 12/03/2021 ramelteon (Rozerem) 8 mg tablet Take 8 mg by mouth at bedtime as needed. 08/23/2024 traZODone (DESYREL) 50 mg tablet Take 25 [...] drinking. Last marijuana use was proximally three days ago. The patient has been experiencing several days of persistent nausea and vomiting. He has soughtevaluation in another hospital's emergency department within the [...] Hypokalemia Dr. Seferino Christianson (EM PGY3) Phone: [phone] Pager: [phone] Seferino Christianson M.D. Resident 10/09/24 [phone] * Beth Keith, RFlaviaN. - 10/08/2024 9:24 [...] - 11 % 10/08/2024 6:02 PM CDT [facility] Manual Absolute Neutrophil Count 5.94 1.56 - 6.45 x10(9)/L 10/08/2024 6:02 PM CDT [facility] Comment: ----ADDITIONAL INFORMATION---- The manual absolute neutrophil [...] Reviewed by: Lucy 10/08/2024 6:02 PM CDT [facility] Blood 10/08/2024 4:52 PM CDT 10/08/2024 5:09 PM CDT us Christian Landa P.A.-C. LAB BLOOD ADD-ON Final Res ult Performing Organization Address City/[facility]/ZIP Co de Phone Number [facility] [address] [place] [address], [facility] [address] [place] [address] * Ethanol Level, Serum (10/08/2024 4:52 PM CDT) [facility] Ethanol, S <10 <10 mg/dL 10/08/2024 5:5 5 PM CDT DTL Blood (Blood, Venous) 10/08/2024 4:52 PM CDT 10/08/2024 5:35 PM CDT Christian Landa P.A.-C. LAB BLOOD NON ADD-ON Final Result Performing Organization Address City/[facility]/ZIP Co de Phone Number [facility] [address] [place] [address], [facility] [address] [place] [address] * Magnesium (10/08/2024 4:52 PM CDT) [facility] Magnesium, P 2.3 1.7 - 2.3 mg/dL 10/08/2024 5:31 PM CDT [facility] Blood (Blood, Venous) 10/08/2024 4:52 PM CDT 10/08/2024 5:10 PM CDT us Christian Landa P.A.-C. LAB BLOOD ADD-ON Final Res ult [facility] [address] [place] [address], [facility] STMA [facility] [address] [place] [address] * (ABNORMAL) CBC with Differential, Blood (10/08/2024 [...] - 6.45 x10(9)/L 10/08/2024 6:01 PM CDT [facility] Comment:Auto-diff results no t valid. See manual differential. Blood (Blood, Venous) 10/08/2024 4:52 PM CDT 10/08/2024 5:09 PM CDT us Christian Landa P.A.-C. LAB BLOOD ADD-ON Final Res ult Performing Organization Address City/[facility]/ZIP Co de Phone Number [facility] [address] [place] [address], [facility] STMA [facility] [address] [place] [address] [facility] [address] [place] [address] * (ABNORMAL) Lipase (10/08/2024 4:52 PM CDT) Lipase, S 92(H) 13 - 60 U/L 10/08/2024 5: 55 PM CDT [facility] Blood (Blood, Venous) 10/08/2024 4:52 PM CDT 10/08/2024 5:35 PM CDT Christian Landa P.A.-C. LAB BLOOD ADD-ON Final Res ult Performing Organization Address City/[facility]/ZIP Co de Phone Number [facility] [address] [place] [address], [facility] DTL [facility] [address] [place] [address] * (ABNORMAL) Hepatic Function Panel (10/08/2024 4:52 [...] P.A.-C. LAB BLOOD ADD-ON Final Res ult [facility] [address] [place] [address], [facility] [address] [place] [address] * (ABNORMAL) Basic Metabolic Panel (10/08/2024 4:52 [...] ADD-ON Final Res ult Performing Organization Address [facility] Co de Phone Number [facility] [address] [place] [address], [facility] [address] [place] [address] * ECG 12 Lead (10/08/2024 4:22 PM CDT) Ventricular Rate ECG/Min 99 BPM MUSE [place] Interval 138 ms MUSE QRSD Interval 86 ms MUSE QT Interval 374 ms MUSE QTC Interval 479 ms MUSE P [place] 62 degrees MUSE R [place] 60 degrees MUSE T Wave [place] 43 degrees MUSE 10/08/2024 4:22 PM CDT [...] ORDERABLE S Final Result Performing Organization Address [facility] Co de Phone Number MUSE NA documented in this encounter Visit Diagnoses Diagnosis Nausea And Vomiting- Primary Cyclical Vomiting Syndrome Unrelated To Migraine Hypokalemia documented in this encounter Administered Medications Inactive Administered Medications - up to 3 most recent administrations Medication Order MAR Action Action Date Dose Rate Site diazePAM tablet 5 mg (Valium) 5 mg, oral, Once, On Fri10/08/24 at 2039, For 1 dose Given 10/08/2024 8:58 PM [...] 2057 (Given - Provid er: Beth Keith R.N.) diphenhydrAMINE injection 25 mg (BenadryL) (COMPLETED) 25 [...] 2106 (Given - Provid er: Beth Keith R.N.)2211 (Given - Provider: Beth Keith R.N.) sodium [...] documented as of this encounter Care Teams Power Washer Relationship Specialty Start Date End Date Elsewhere, Pcp PCP - General Internal Medicine 03/26/24 documented as of this encounter
--- OUTSIDE RECORDS SUMMARY | 2024-11-20 22:07 | XMS_ITS | Clinical Summary ---
Author Organization [facility] Address [address], [place] [address] Care Team Providers Care Naval Aircrewman Name Role Phone Deepthi Mc PA-C Primary Care Provider [phone] Source Comments You are receiving this document as you are listed as the primary care provider,follow-up provider, or the patient has been referred to you for consultation.This is in compliance with the Medicare andPark[facility] Hospitalcaid EHR Incentive Program,which states Providers who transition their patient to another setting of careor provider of care or refers their patient to another provider of care shouldprovide summary care record for each transition of care or referral. [facility] Allergies No known active allergies Medications ondansetron [...] history of withdrawal seizures or withdrawal complications. [place] admission on 03/26/20 for alcohol withdrawal and discharged on 03/28/20. Patient is interested in quitting. Has previously tried clonidine and naltrexone. Patient with history of alcohol abuse. No history of withdrawal seizures or withdrawal complications. [place] admission on 03/26/20 for alcohol withdrawal and discharged on 03/28/20. Patient is interested in quitting. Has previously tried clonidine and naltrexone. Persistent sleep disorder 10/17/2016 Insomnia 09/19/2016 Cyclical vomiting 04/04/2016 Social anxiety disorder 02/26/2016 PTSD (post-traumatic stress disorder) 05/16/2014 Generalized anxiety disorder 12/03/2013 Overview (12/26/2020): Under the care of Dr. Rafat Falcon for mental health care. [facility] . Initial intake 12/10/12 [...] ER visit for cyclic vomiting; hospitalization at [facility] 05/03 (72 hr hold); 12/01 at [facility] History of Suicide Attempts: no Under the care of Dr. Rafat Falcon for mental health care. [facility] . Initial intake 12/10/12 [...] ER visit for cyclic vomiting; hospitalization at [facility] 05/03 (72 hr hold); 12/01 at [facility] History of Suicide Attempts: no Under the care of Dr. Rafat Falcon for mental health care. [facility] . Initial intake 12/10/12 [...] ER visit for cyclic vomiting; hospitalization at [facility] 05/03 (72 hr hold); 12/01 at [...] Comments Blood Pressure 165/84 08/11/2021 5:23 PM ELEVATOR SUPERVISOR Pulse 77 08/11/2021 5:23 PM ELEVATOR SUPERVISOR Temperature 36.4 C (97.5 F) 08/11/2021 5:23 PM ELEVATOR SUPERVISOR Respiratory Rate 20 08/11/2021 5:23 PM ELEVATOR SUPERVISOR Oxygen Saturation 100% 08/11/2021 5:23 PM ELEVATOR SUPERVISOR Inhaled Oxygen Concentration - - Weight 104.3 kg (230 lb) 08/11/2021 5:26 PM ELEVATOR SUPERVISOR Height 182.9 cm (6') 08/11/2021 5:26 PM ELEVATOR SUPERVISOR Body Mass Index 31.19 08/11/2021 5:26 PM ELEVATOR SUPERVISOR Plan of Treatment Health Maintenance Due Date Last Done Comments Hep C Screening (Preventive Services) 1995 Asthma ACT (score of 20 or higher) 1999 HepA Vaccine (2 of 2 - 2-dose series) 07/29/2008 01/27/2008 HIV Screening (Preventive Services) 2011 Adult Preventive Visit 10/02/2013 HepB Vaccine (1) 10/02/2014 Pneumococcal Vaccine (1 of 2 - PCV) 10/02/2014 COVID-19 Vaccine (3 - season) 2024 11/29/2020, 11/08/2020 Influenza Vaccine (Season Ended) 2025 07/07/2020 DTaP/Tdap/Td Vaccine (6 - Tdap) 03/20/2030 03/20/2020, 01/27/2008, 03/16/2001, Additional history exists Zoster/Shingles Vaccine (1 of 2) 10/02/2045 Hib Vaccine Completed 06/08/1997, 07/22, 04/02/1996, Additional history exists IPV (Polio) Vaccine Completed 03/16/2001, 08/16/1996, 04/02/1996, Additional history exists HPV Vaccine Aged Out No longer eligi ble based on patient's age to complete this topic MCV4 Vaccine Aged Out No longer eligi ble based on patient's age to complete this topic Meningococcal B Vaccine Aged Out No l onger eligible based on patient's age to complete this topic Insurance [facility] Care Teams Naval Aircrewman Relationship Specialty Start Date End Date Deepthi Mc PA-C [address] [place] [id number] PCP - General Physician Mat Linker 08/15/24
--- OUTSIDE RECORDS SUMMARY | 2024-11-20 22:08 | XMS_ITS | Clinical Summary ---
Author Organization [facility] Address [address] [place] [address] Care Team Providers Care Industrial Economist Name Role Phone Jesusita Deepthi Wilkins Primary Care Provider [phone] Allergies Active Allergy Reactions Criticality Noted Date [...] history of withdrawal seizures or withdrawal complications. [place] admission on 03/26/20 for alcohol withdrawal and discharged on 03/28/20. Patient is interested in quitting. Has previously tried clonidine and naltrexone. Patient with history of alcohol abuse. No history of withdrawal seizures or withdrawal complications. [place] admission on 03/26/20 for alcohol withdrawal and discharged on 03/28/20. Patient is interested in quitting. Has previously tried clonidine and naltrexone. Patient with history of alcohol abuse. No history of withdrawal seizures or withdrawal complications. [place] admission on 03/26/20 for alcohol withdrawal and discharged on 03/28/20. Patient is interested in quitting. Has previously tried clonidine and naltrexone. Cyclical vomiting 04/04/2016 Social anxiety disorder 02/26/2016 PTSD (post-traumatic stress disorder) 05/16/2014 Overview (07/15/2021): Under the care of Dr. Rafat Falcon for mental health care. [facility] . Initial intake 12/10/12 Previous [...] for cyclic vomiting; hospitalization at [facility] 05/03 (72 hr hold); 12/01 at [facility] History of Suicide Attempts: no Under the care of Dr. Rafat Falcon for mental health care. [facility] . Initial intake 12/10/12 Previous [...] for cyclic vomiting; hospitalization at [facility] 05/03 (72 hr hold); 12/01 at [facility] History of Suicide Attempts: no Under the care of Dr. Rafat Falcon for mental health care. [facility] . Initial intake 12/10/12 Previous [...] for cyclic vomiting; hospitalization at [facility] 05/03 (72 hr hold); 12/01 at [facility] History of Suicide Attempts: no Under the care of Dr. Rafat Falcon for mental health care. [facility] . Initial intake 12/10/12 Previous [...] for cyclic vomiting; hospitalization at [facility] 05/03 (72 hr hold); 12/01 at [facility] History of Suicide Attempts: no Under the care of Dr. Rafat Falcon for mental health care. [facility] . Initial intake 12/10/12 Previous [...] for cyclic vomiting; hospitalization at [facility] 05/03 (72 hr hold); 12/01 at [facility] History of Suicide Attempts: no Under the care of Dr. Rafat Falcon for mental health care. [facility] . Initial intake 12/10/12 Previous [...] for cyclic vomiting; hospitalization at [facility] 05/03 (72 hr hold); 12/01 at [facility] History of Suicide Attempts: no Under the care of Dr. Rafat Falcon for mental health care. [facility] . Initial intake 12/10/12 Previous [...] for cyclic vomiting; hospitalization at [facility] 05/03 (72 hr hold); 12/01 at [facility] History of Suicide Attempts: no Cannabis dependence, [...] permanent housing and does not include staying outside in a car, in a tent, in an abandoned building, in an overnight detention, or couch-surfing.) Yes 06/23/2024 Are you worried [...] Comments Blood Pressure 122/60 07/13/2024 6:16 AM UI UX ENGINEER Pulse 117 07/12/2024 10:01 PM UI UX ENGINEER Temperature 36.7 C (98.1 F) 07/12/2024 10:01 PM UI UX ENGINEER Respiratory Rate 30 07/12/2024 10:01 PM UI UX ENGINEER Oxygen Saturation 100% 07/12/2024 10:01 PM UI UX ENGINEER Inhaled Oxygen Concentration - - Weight 98.9 kg (218 lb) 07/12/2024 10:01 PM UI UX ENGINEER Height 182.9 cm (6') 07/11/2024 3:12 PM UI UX ENGINEER Body Mass Index 29.57 07/11/2024 3:12 PM UI UX ENGINEER Plan of Treatment Health Maintenance Due Date [...] BASIC METABOLIC PANEL STAT 07/13/2024 1:19 AM UI UX ENGINEER from Last 3 Months or Most Recently Relevant to Health Maintenance Results * (ABNORMAL) Basic metabolic panel (07/13/2024 1:19 AM UI UX ENGINEER) Sodium 127(L) 135 - 145 mmol/L 07/13/2024 3:15 AM UI UX ENGINEER [facility] Potassium 4.4 3.4 - 5.3 mmol/L 07/13/2024 3:15 AM UI UX ENGINEER [facility] Chloride 91(L) 98 - 107 mmol/L 07/13/2024 3:15 AM [facility] Carbon Dioxide (CO2) 23 22 - 29 mmol/L 07/13/2024 3:15 AM [facility] Anion Gap 13 7 - 15 mmol/L 07/13/2024 3:15 AM [facility] Urea Nitrogen 22.0(H) 6.0 - 20.0 mg/dL 07/13/2024 3:15 AM [facility] Creatinine 0.92 0.67 - 1.17 mg/dL 07/13/2024 3:15 AM [facility] GFR Estimate >90 >60 mL/min/1.7 3m2 07/13/2024 3:15 AM [facility] Comment:eGFR calculated usin 2020 CKD-EPI equation. Calcium 9.6 8.8 - 10.4 mg/dL 07/13/2024 3:15 AM [facility] Comment:Reference intervals for this test were updated on 02/03/2024 to reflect our healthy population more accurately. There may be differences in the flagging of prior results with similar values performed with this method. Those prior results can be interpreted in the context of the updated reference intervals. Glucose 91 70 - 99 mg/dL 07/13/2024 3:15 AM [facility] Blood BLOOD SPECIMEN / Unknown Venipuncture / Unknown 07/13/2024 1:19 AM [facility] 07/13/2024 1:23 AM [facility] us Jack Cornejo MD LAB - BLOOD ORDERABLES Final Res ult [facility] [address] [facility] [place] [address], [facility] from Last 3 Months or Most Recently Relevant to Health Maintenance Insurance 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
--- OUTSIDE RECORDS SUMMARY | 2024-11-20 22:08 | XMS_ITS | Encounter Summary ---
Author Organization [place] Address [facility] [address] Care Team Providers Care Translator/Interpreter Name Role Phone Deepthi Mc Primary Care Provider [phone] Reason for Visit * Reason Onset Date Comments MH/CD Inpatient 12/08/2013 Encounter Details Date Type Department Care Team ([facility] st Contact Info) Description 12/08/2013 Telephone [facility] Behavioral Health Intake [address] [place] [phone] Generic, Behavioral Intake, MH/CD Inpatient Social History [...] on file Sexual Orientation Not on file COVID-19 Exposure Response Date Recorded In the last month, have you been in contact with someone who was confirmed or suspected to have Coronavirus / COVID-19? No / Unsure 07/15/2021 11:[address] LIGHT documented as of this encounter Miscellaneous Notes * Telephone Encounter - Trent Jamesen - 12/08/2013 11:23 AM CDT S: Katarzyna from [facility] calling requesting Psych bed for pt. # [phone] B: Pt was BIB mother to [place] [facility] 12/06/13 for self induced vomiting; OCD [...] have not pursued commitment at this time. [facility] will be unable to take him at this time. If commitment is supported by [facility], I invited Katarzyna to call back and check on bed availability. documented in this encounter Plan of Treatment Not on file documented as of this encounter Visit Diagnoses Not on filedocumented in this encounter Additional Health Concerns Infection Onset Date Last Indicated Resolved Time Rule Out C-difficile 08/13/2023 08/13/2023 024 8:[address] LIGHT documented as of this encounter Care Teams Translator/Interpreter Relationship Specialty Start Date End Date Deepthi Mc [address] [place] [address] PCP - General Physician Pharmacology Professor 06/15/23 documented as of this encounter
--- OUTSIDE RECORDS SUMMARY | 2024-11-20 22:08 | XMS_ITS | Clinical Summary ---
Author Organization [facility] Address [address] [place] [address] Care Team Providers Care Exercise Equipment Repair Technician Name Role Phone Deepthi Mc Primary Care [...] if needed. Active cloNIDine 0.1 mg/24 hr ([id number]) 0.1 mg/24 hr patchIndications:A nxiety,ETOH abuse APPLY [...] times daily. 60 Tablet 12/25/19 25 Active QUEtiapine 25 mg tabletIndications: Anxiety Take 1 Tablet (25 mg) by mouth at bedtime. 30 Tablet 1 10/26/19 25 Active pantoprazole (Protonix) 40 mg delayed-release tabletIndications: Gastric reflux Take 1 Tablet (40 mg) by mouth once daily. 90 Tablet 3 11/02/19 25 Active LORazepam 0.5 mg tabIndications:Anx iety Take 1 Tablet (0.5 mg) by mouth 2 times daily if needed for Anxiety. 20 Tablet 11/09/19 25 Active ramelteon (ROZEREM) 8 mg tabletIndications: Insomnia, idiopathic Take 1 Tablet (8 mg) by mouth at bedtime if needed for Sleep. 30 Tablet 08/23/19 25 025 Discontin ued(Reord er (E-cancel not sent)) LORazepam 0.5 mg tabIndications:Anx iety Take 1 Tablet (0.5 mg) by mouth 2 times daily if needed for Anxiety. 20 Tablet 10/26/19 25 025 Discontin ued(Reord er (E-cancel not [...] Dr. Rafat Falcon for mental health care. [facility] . Initial intake 12/10/12 Previous Medication [...] ER visit for cyclic vomiting; hospitalization at [facility] 05/03 (72 hr hold); 12/01 at [facility] History of Suicide Attempts: no [...] Encounters Date Type Department Care Team Description 11/16/2024 2:00 PM CDT Office Visit [facility] [address] [place] [address] David Bryan, [facility] Mental Health Consultants Visit 11/16/2024 Travel 11/08/2024 2:40 PM CDT Office Visit [facility] [address] [place] [address] Deepthi Mc PA Follow Up; Concerns (Was exposed to strep from niece, throat is just scratchy, did start taking amox that he had at home) 11/08/2024 Travel 11/04/2024 Telephone [facility] [address] [place] [address] Deepthi Mc PA FYI (News regarding patient) 10/25/2024 2:40 PM CDT Office Visit [facility] [address] [place] [address] Deepthi Mc PA Medication Management 10/25/2024 Travel 10/08/2024 Telephone [facility] [address] [place] [address] Deepthi Mc PA Questions 09/27/2024 2:00 PM CDT Office Visit [facility] [address] [place] [address] Deepthi Mc PA Medication Management (Pristiq & Cymbalta - is done with the pristiq but has not started the cymbalta yet) 09/27/2024 Travel 09/22/2024 Refill [facility] [address] [place] [address] Deepthi Mc PA Refill Request (Refill request ) 09/06/2024 2:40 PM SHARE HOLDER Office Visit [facility] [address] [place] [address] Deepthi Mc PA Medication Management 09/06/2024 Travel 09/01/2024 2:00 PM SHARE HOLDER Office [place] [address] [place] [phone] Alanna Erwin PA Consult (Conductive hearing loss of right ear with unrestricted hearing of left ear /Recurrent acute suppurative otitis media without spontaneous rupture of left tympanic membrane ) 09/01/2024 Travel from Last 3 Months Immunizations Immunization Administration Dates Next Due COVID-19 vaccine (Pfizer-Bio [...] Answer Date Recorded PHQ-2 TOTAL SCORE 4 11/16/2024 Social Connections Answer Date Recorded Do you [...] on file Legal Sex Male 5:18 AM SHARE HOLDER Gender Identity Not on file Sexual Orientation Not on file 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 Not on file Not on file 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 Not on file Not on file Not on file Obstetrics History Last Filed Vital Signs Vital Sign Reading Time Taken Comments Blood Pressure 142/86 11/08/2024 2:46 PM CDT Pulse 84 11/08/2024 2:46 PM CDT Temperature 36.8 C (98.2 F) 11/08/2024 2:46 PM CDT Respiratory Rate 18 12/30/2020 8:55 PM CDT Oxygen Saturation 100% 02/13/2024 11:31 AM CDT Inhaled Oxygen Concentration - - Weight 112 kg (247 lb) 11/08/2024 2:46 PM CDT Height 182 cm (5' 11.65) 11/01/2022 2:24 PM CDT Body Mass Index 33.82 11/01/2022 2:24 PM CDT Plan of Treatment Upcoming Encounters Date Type Department Care Team (Late st Contact Info) Description 11/29/2024 2:40 PM CDT Office Visit [facility] [address] [place] [address] Deepthi Mc PA [address] [place] [address] Health Maintenance Due Date Last Done Comments Hepatitis C screening for ag e 18-79 10/02/2013 Pneumococcal series for age 6-49 (1 of 2 - PCV) 10/02/2014 BMI (ht and wt on same day) for age 18+ 11/02/2023 11/01/2022, 08/27/2021, 01/22/2021, Additional history exists COVID-19 vaccine series ( season) 2024 11/28/2021, 11/29/2020, 11/08/2020 Influenza Vaccine (Season Ended) 2025 05/17/20, 07/07/2020 Depression screening for age 12+ 11/16/2025 11/16/2024, 09/02/2022, 01/22/2021, Additional history exists Tetanus booster 03/20/2030 03/20/2020, 02/20, 01/27/2008 Tdap Completed 01/27/2008 HIV for age 15-65 Completed 10/15/2013 Procedures Procedure Name Priority Date/Time Associated Diagnosis Comments ANTI HIV 1/2 Routine 10/15/2013 9:28 AM CDT Diarrhea GERD (gastroesophageal reflux disease) Weight loss from Last 3 Months or Most Recently Relevant to Health Maintenance Results * ANTI HIV 1/2 (10/15/2013 9:28 AM CDT) ANTI HIV 1/2 Non-reacti ve [facility] Blood specimen (specimen) BLOOD SPECIMEN / Unknown 10/15/2013 9:28 AM CDT 10/15/2013 9:13 AM CDT us Luis Jarrett MD SEND OUTS Final Res ult [facility] [place]NAL [place]IP [address] [place] [phone] from Last 3 Months or Most Recently Relevant to Health Maintenance Insurance [facility] [place] Advance Directives * Full Code (Latest Code Status on File) Date Activated Date Inactivated Comments 05/15/2014 4:32 PM 05/18/2014 8:52 PM * Full Code Date Activated Date Inactivated Comments 05/02/2014 7:01 PM 05/07/2014 1:56 PM Care Teams Exercise Equipment Repair Technician Relationship Specialty Start Date End Date Deepthi Mc PA [address] [place] [address] PCP - General Family Practice 03/04/11
== END 2024-11-20 22:32 | disposition home or self-care (01) ==
PROVIDERS: Emergency Provider Family Medicine; PCP Physician Assistant Medical
DX: S61.011A Laceration without foreign body of right thumb without damage to nail, initial encounter (principal); W26.9XXA Contact with unspecified sharp object(s), initial encounter
CPT/HCPCS: 12001; 99283; 99284

== ENCOUNTER 2024-11-23 19:02 | Emergency (ER) | payer BC, SELFPAY ==
--- OUTSIDE RECORDS SUMMARY | 2024-11-23 19:04 | XMS_ITS | Clinical Summary ---
Author Organization [facility] Address [address], [place] [address] Care Team Providers Care Spinning Frame Cleaner Name Role Phone Deepthi Mc PA-C Primary Care Provider [phone] Source Comments You are receiving this document [...] each transition of care or referral. [facility] Allergies No known active allergies Medications ondansetron [...] history of withdrawal seizures or withdrawal complications. [place] admission on 03/26/20 for alcohol withdrawal and discharged on 03/28/20. Patient is interested in quitting. Has previously tried clonidine and naltrexone. Patient with history of alcohol abuse. No history of withdrawal seizures or withdrawal complications. [place] admission on 03/26/20 for alcohol withdrawal and discharged on 03/28/20. Patient is interested in quitting. Has previously tried clonidine and naltrexone. Persistent sleep disorder 10/17/2016 Insomnia 09/19/2016 Cyclical vomiting 04/04/2016 Social anxiety disorder 02/26/2016 PTSD (post-traumatic stress disorder) 05/16/2014 Generalized anxiety disorder 12/03/2013 Overview (12/26/2020): Under the care of Dr. Rafat Falcon for mental health care. [facility] . Initial intake 12/10/12 Previous [...] Institute 05/03 (72 hr hold); 12/01 at [facility] History of Suicide Attempts: no Under the care of Dr. Rafat Falcon for mental health care. [facility] . Initial intake 12/10/12 Previous [...] Institute 05/03 (72 hr hold); 12/01 at [facility] History of Suicide Attempts: no Under the care of Dr. Rafat Falcon for mental health care. [facility] . Initial intake 12/10/12 Previous [...] Institute 05/03 (72 hr hold); 12/01 at [facility] History of Suicide Attempts: no [...] Comments Blood Pressure 165/84 08/11/2021 5:23 PM UPPER CUTTER MACHINE Pulse 77 08/11/2021 5:23 PM UPPER CUTTER MACHINE Temperature 36.4 C (97.5 F) 08/11/2021 5:23 PM UPPER CUTTER MACHINE Respiratory Rate 20 08/11/2021 5:23 PM UPPER CUTTER MACHINE Oxygen Saturation 100% 08/11/2021 5:23 PM UPPER CUTTER MACHINE Inhaled Oxygen Concentration - - Weight 104.3 kg (230 lb) 08/11/2021 5:26 PM UPPER CUTTER MACHINE Height 182.9 cm (6') 08/11/2021 5:26 PM UPPER CUTTER MACHINE Body Mass Index 31.19 08/11/2021 5:26 PM UPPER CUTTER MACHINE Plan of Treatment Health Maintenance Due Date [...] patient's age to complete this topic Insurance [facility] Care Teams Spinning Frame Cleaner Relationship Specialty Start Date End Date Deepthi Mc PA-C [address] [place] [phone] PCP - General Physician Upsetter 08/15/24
--- OUTSIDE RECORDS SUMMARY | 2024-11-23 19:04 | XMS_ITS ---
Author Organization Unknown Address [address] [place], [place] [phone] Phone Care Team Providers Care Ethics Officer Name Role Phone CLAIRE TEJADA Attending Unavailable [...] Code Sys tem Cyclical vomiting syndrome 10/28/2023 [id number] S [facility] Personal Care Team Section Performer Name Performer Role Active Date Inactive Da te
--- OUTSIDE RECORDS SUMMARY | 2024-11-23 19:04 | XMS_ITS | Encounter Summary ---
Author Organization [facility] Address [address] [place] [address] Care Team Providers Care Car Rental Manager Name Role Phone Elsewhere, Pcp Primary Care Provider Unavailabl e Reason for Visit * Reason Comments Vomiting Encounter Details Date Type Department Care Team ([facility] st Contact Info) Description 10/08/2024 4:05 PM CDT - 10/08/2024 11:18 PM CDT Emergency [facility] Emergency Department [address] [place] [address] Albert Pitts M.D., M.H.P.E. [address] [place] [phone] Nausea And Vomiting (Primary Dx); Cyclical Vomiting Syndrome Unrelated To Migraine; Hypokalemia Discharge Disposition: Home or Self Care Social History Tobacco Use Types Packs/Day Years Used Date Smoking Tobacco: Every Day Cigarettes 0.5 8 Smokeless Tobacco: Never Comments:x 5 daily Alcohol Use Standard Drinks/Week Comments Yes 5 (1 standard drink = 0.6 oz pur e alcohol) 750 ml straight Vodka Daily [facility] Utilities Answer Date Recorded In the past 12 months has e [employer], gas, oil, or water [employer] threatened to shut off services in your [...] your living situation today? I have a [facility] place [facility] live 03/26/2024 Sex and Gender Information Value Date Recorded Sex Assigned at Not on file Legal Sex Male 5:32 PM RADIOLOGY PHYSICIAN ASSISTANT Gender Identity Not on file Sexual [...] diazepam (Valium) has been sent to the [facility] pharmacy. Please take this medication as needed every 8 hours in order to control anxiety, nausea, and/or vomiting. Please cut down on your alcohol and marijuana usage. * Attachments The following attachments cannot be sent through Care Everywhere. * Cyclic Vomiting Syndrome Adult (Colombian) * Nausea and Vomiting Adult [id number] (Colombian) * Hypokalemia (Colombian) documented in this encounter Medications at Time [...] Hypokalemia Dr. Seferino Christianson (EM PGY3) Phone: [phone] Pager: [phone] Seferino Christianson M.D. Resident 10/09/24 [phone] * Beth Keith, RFlaviaN. - 10/08/2024 9:24 [...] - 11 % 10/08/2024 6:02 PM CDT [facility] Manual Absolute Neutrophil Count 5.94 1.56 - 6.45 x10(9)/L 10/08/2024 6:02 PM CDT [facility] Comment: ----ADDITIONAL INFORMATION---- The manual absolute neutrophil [...] Reviewed by: Lucy 10/08/2024 6:02 PM CDT [facility] Blood 10/08/2024 4:52 PM CDT 10/08/2024 5:09 PM CDT us Christian Landa P.A.-C. LAB BLOOD ADD-ON Final Res ult Performing Organization Address City/[facility]/ZIP Co de Phone Number [facility] [address] [place] [address], [facility] [address] [place] [address] * Ethanol Level, Serum (10/08/2024 4:52 PM CDT) [facility] Ethanol, S <10 <10 mg/dL 10/08/2024 5:5 5 PM CDT DTL Blood (Blood, Venous) 10/08/2024 4:52 PM CDT 10/08/2024 5:35 PM CDT Christian Landa P.A.-C. LAB BLOOD NON ADD-ON Final Result Performing Organization Address City/[facility]/ZIP Co de Phone Number [facility] [address] [place] [address], [facility] [address] [place] [address] * Magnesium (10/08/2024 4:52 PM CDT) [facility] Magnesium, P 2.3 1.7 - 2.3 mg/dL 10/08/2024 5:31 PM CDT STMA Blood (Blood, Venous) 10/08/2024 4:52 PM CDT 10/08/2024 5:10 PM CDT us Christian Landa P.A.-C. LAB BLOOD ADD-ON Final Res ult [facility] [address] [place] [address], [facility] STMA [facility] [address] [place] [address] * (ABNORMAL) CBC with Differential, Blood (10/08/2024 [...] - 6.45 x10(9)/L 10/08/2024 6:01 PM CDT [facility] Comment:Auto-diff results no t valid. See manual differential. Blood (Blood, Venous) 10/08/2024 4:52 PM CDT 10/08/2024 5:09 PM CDT us Christian Landa P.A.-C. LAB BLOOD ADD-ON Final Res ult Performing Organization Address City/[facility]/ZIP Co de Phone Number [facility] [address] [place] [address], [facility] STMA [facility] [address] [place] [address] DHPM [facility] [address] [place] [address] * (ABNORMAL) Lipase (10/08/2024 4:52 PM CDT) Lipase, S 92(H) 13 - 60 U/L 10/08/2024 5: 55 PM CDT DTL Blood (Blood, Venous) 10/08/2024 4:52 PM CDT 10/08/2024 5:35 PM CDT Christian Landa P.A.-C. LAB BLOOD ADD-ON Final Res ult Performing Organization Address City/[facility]/ZIP Co de Phone Number [facility] [address] [place] [address], [facility] DTL [facility] [address] [place] [address] * (ABNORMAL) Hepatic Function Panel (10/08/2024 4:52 [...] P.A.-C. LAB BLOOD ADD-ON Final Res ult [facility] [address] [place] [address], [facility] [address] [place] [address] * (ABNORMAL) Basic Metabolic Panel (10/08/2024 4:52 [...] Final Res ult Performing Organization Address [facility] Co de Phone Number [facility] [address] [place] [address], [facility] [address] [place] [address] * ECG 12 Lead (10/08/2024 4:22 PM CDT) Ventricular Rate ECG/Min 99 BPM MUSE PA Interval 138 ms MUSE QRSD Interval 86 ms MUSE QT Interval 374 ms MUSE QTC Interval 479 ms MUSE P Tanana 62 degrees MUSE R Tanana 60 degrees MUSE T Wave Tanana 43 degrees MUSE 10/08/2024 4:22 PM CDT [...] S Final Result Performing Organization Address [facility] Co de Phone Number MUSE NA documented [...] documented as of this encounter Care Teams Car Rental Manager Relationship Specialty Start Date End Date Elsewhere, Pcp PCP - General Internal Medicine 03/26/24 documented as of this encounter
--- OUTSIDE RECORDS SUMMARY | 2024-11-23 19:05 | XMS_ITS | Clinical Summary ---
Author Organization [facility] Address [address] [place] [address] Care Team Providers Care Netsuite Consultant Name Role Phone Deepthi Mc Primary Care [...] if needed. Active cloNIDine 0.1 mg/24 hr ([id number]) 0.1 mg/24 hr patchIndications:A nxiety,ETOH abuse APPLY [...] Dr. Rafat Falcon for mental health care. [facility] . Initial intake 12/10/12 Previous [...] ER visit for cyclic vomiting; hospitalization at [facility] 05/03 (72 hr hold); 12/01 at [facility] History of Suicide Attempts: no Cannabis [...] Description 11/16/2024 2:00 PM CDT Office Visit [facility] [address] [facility] [place] [address] David Bryan, [facility] Mental Health Consultants Visit 11/16/2024 Travel 11/08/2024 2:40 PM CDT Office Visit [facility] [address] [facility] [place] [address] Deepthi Mc PA Follow Up; Concerns (Was exposed to strep from niece, throat is just scratchy, did start taking amox that he had at home) 11/08/2024 Travel 11/04/2024 Telephone [facility] [address] [place] [address] Deepthi Mc PA FYI (News regarding patient) 10/25/2024 2:40 PM CDT Office Visit [facility] [address] [place] [address] Deepthi Mc PA Medication Management 10/25/2024 Travel 10/08/2024 Telephone [facility] [address] [place] [address] Deepthi Mc PA Questions 09/27/2024 2:00 PM CDT Office Visit [facility] [address] [place] [address] Deepthi Mc PA Medication Management (Pristiq & Cymbalta - is done with the pristiq but has not started the cymbalta yet) 09/27/2024 Travel 09/22/2024 Refill [facility] [address] [place] [address] Deepthi Mc PA Refill Request (Refill request ) 09/06/2024 2:40 PM INSURANCE HEALTHCARE REPRESENTATIVE Office Visit [facility] [address] [place] [address] Deepthi Mc PA Medication Management 09/06/2024 Travel 09/01/2024 2:00 PM INSURANCE HEALTHCARE REPRESENTATIVE Office Visit [address] [place] [address] Alanna Erwin PA Consult (Conductive hearing loss [...] on file Legal Sex Male 5:18 AM INSURANCE HEALTHCARE REPRESENTATIVE Gender Identity Not on file Sexual Orientation [...] Description 11/29/2024 2:40 PM CDT Office Visit [facility] [address] [place] [address] Deepthi Mc PA [address] [place] [address] Health Maintenance Due Date Last Done Comments [...] AM CDT) ANTI HIV 1/2 Non-reacti ve [facility] Blood specimen (specimen) BLOOD SPECIMEN / Unknown 10/15/2013 9:28 AM CDT 10/15/2013 9:13 AM CDT us Luis Jarrett MD SEND OUTS Final Res ult [facility] [place]NAL ZIP [address] [place] [phone] from Last 3 Months or Most Recently Relevant to Health Maintenance Insurance [facility] [place] Advance Directives * Full Code (Latest Code Status on File) Date Activated Date Inactivated Comments 05/15/2014 4:32 PM 05/18/2014 8:52 PM * Full Code Date Activated Date Inactivated Comments 05/02/2014 7:01 PM 05/07/2014 1:56 PM Care Teams Netsuite Consultant Relationship Specialty Start Date End Date Deepthi Mc PA [address] [place] [address] PCP - General Family Practice 03/04/11
--- OUTSIDE RECORDS SUMMARY | 2024-11-23 19:05 | XMS_ITS | Clinical Summary ---
Author Organization [place] Address [address] [place] [address] Care Team Providers Care Atmospheric Scientist Name Role Phone Jesusita Deepthi Wilkins Primary Care Provider [phone] Allergies Active Allergy Reactions Criticality Noted Date [...] history of withdrawal seizures or withdrawal complications. [place] admission on 03/26/20 for alcohol withdrawal and discharged on 03/28/20. Patient is interested in quitting. Has previously tried clonidine and naltrexone. Patient with history of alcohol abuse. No history of withdrawal seizures or withdrawal complications. [place] admission on 03/26/20 for alcohol withdrawal and discharged on 03/28/20. Patient is interested in quitting. Has previously tried clonidine and naltrexone. Patient with history of alcohol abuse. No history of withdrawal seizures or withdrawal complications. [place] admission on 03/26/20 for alcohol withdrawal and [...] ER visit for cyclic vomiting; hospitalization at [facility] 05/03 ([facility] hr hold[facility] ER visit for cyclic vomiting; hospitalization at [facility] 05/03 (72 hr hold); [facility] [...] ER visit for cyclic vomiting; hospitalization at [facility] 05/03 (72 hr hold); [facility] [...] ER visit for cyclic vomiting; hospitalization at [facility] 05/03 (72 hr hold); [facility] [...] ER visit for cyclic vomiting; hospitalization at [facility] 05/03 (72 hr hold); [facility] [...] ER visit for cyclic vomiting; hospitalization at [facility] 05/03 (72 hr hold); [facility] [...] ER visit for cyclic vomiting; hospitalization at [facility] 05/03 (72 hr hold); [facility] [...] Comments Blood Pressure 122/60 07/13/2024 6:16 AM OBGYN SPECIALIST Pulse 117 07/12/2024 10:01 PM OBGYN SPECIALIST Temperature 36.7 C (98.1 F) 07/12/2024 10:01 PM OBGYN SPECIALIST Respiratory Rate 30 07/12/2024 10:01 PM OBGYN SPECIALIST Oxygen Saturation 100% 07/12/2024 10:01 PM OBGYN SPECIALIST Inhaled Oxygen Concentration - - Weight 98.9 kg (218 lb) 07/12/2024 10:01 PM OBGYN SPECIALIST Height 182.9 cm (6') 07/11/2024 3:12 PM OBGYN SPECIALIST Body Mass Index 29.57 07/11/2024 3:12 PM OBGYN SPECIALIST Plan of Treatment Health Maintenance Due Date [...] BASIC METABOLIC PANEL STAT 07/13/2024 1:19 AM OBGYN SPECIALIST from Last 3 Months or Most Recently Relevant to Health Maintenance Results * (ABNORMAL) Basic metabolic panel (07/13/2024 1:19 AM OBGYN SPECIALIST) Sodium 127(L) 135 - 145 mmol/L 07/13/2024 3:15 AM OBGYN SPECIALIST [facility] Potassium 4.4 3.4 - 5.3 mmol/L 07/13/2024 3:15 AM OBGYN SPECIALIST [facility] Chloride 91(L) 98 - 107 mmol/L 07/13/2024 3:15 AM [facility] Carbon Dioxide (CO2) 23 22 - 29 mmol/L 07/13/2024 3:15 AM [facility] Anion Gap 13 7 - 15 mmol/L 07/13/2024 3:15 AM [facility] Urea Nitrogen 22.0(H) 6.0 - 20.0 mg/dL 07/13/2024 3:15 AM [facility] Creatinine 0.92 0.67 - 1.17 mg/dL 07/13/2024 3:15 AM [facility] GFR Estimate >90 >60 mL/min/1.7 3m2 07/13/2024 3:15 AM [facility] Comment:eGFR calculated usin 2020 CKD-EPI equation. Calcium 9.6 8.8 - 10.4 mg/dL 07/13/2024 3:15 AM [facility] Comment:Reference intervals for this test were updated on 02/03/2024 to reflect our healthy population more accurately. There may be differences in the flagging of prior results with similar values performed with this method. Those prior results can be interpreted in the context of the updated reference intervals. Glucose 91 70 - 99 mg/dL 07/13/2024 3:15 AM [facility] Blood BLOOD SPECIMEN / Unknown Venipuncture / Unknown 07/13/2024 1:19 AM [facility] 07/13/2024 1:23 AM [facility] us Jack Cornejo MD LAB - BLOOD ORDERABLES Final Res ult [facility] [address] [facility] [place] [address], [facility] from Last 3 Months or Most Recently Relevant to Health Maintenance Insurance [facility] Advance Directives For more information, please contact: [phone] Documents on File Type Date Recorded Patient Business Center Representative Expl anation Advance Directives and Living Will [...] Agents on File Name Relationship Healthcare Agent [facility] p Communication Veronica Glass Mother First Alternate Health Care Agent Suzette De La Rosa Sister Health Care Agent Larry Sapp Father Second Alternate Health Care Agent Care Teams Atmospheric Scientist Relationship Specialty Start Date End Date Deepthi Mc [address] [place] [address] PCP - General Physician Commodities Clerk 06/15/23
--- OUTSIDE RECORDS SUMMARY | 2024-11-23 19:05 | XMS_ITS | Encounter Summary ---
Author Organization [place] Address [facility] [place] [address] Care Team Providers Care Director Compliance Name Role Phone Deepthi Mc Primary Care Provider [phone] Reason for Visit * Reason Onset Date Comments MH/CD Inpatient 12/08/2013 Encounter Details Date Type Department Care Team ([facility] st Contact Info) Description 12/08/2013 Telephone [facility] Behavioral Health Intake [address] [place] [id number] Generic, Behavioral Intake, MH/CD Inpatient Social History [...] in an abandoned building, in an overnight fdc, or couch-surfing.) Yes 06/23/2024 Are you worried [...] COVID-19? No / Unsure 07/15/2021 11:44 AM SECTION HAND documented as of this encounter Miscellaneous Notes * Telephone Encounter - Trent Jamesen - 12/08/2013 11:23 AM CDT S: Katarzyna from [facility] calling requesting Psych bed for pt. # [phone] B: Pt was BIB mother to [place] [facility] 12/06/13 for self induced vomiting; OCD [...] not pursued commitment at this time. [facility] will be unable to take him at this time. If commitment is supported by [facility], I invited Katarzyna to call back and check on bed availability. documented in this encounter Plan of Treatment Not on file documented as of this encounter Visit Diagnoses Not on filedocumented in this encounter Additional Health Concerns Infection Onset Date Last Indicated Resolved Time Rule Out C-difficile 08/13/2023 08/13/2023 024 8:43 AM SECTION HAND documented as of this encounter Care Teams Director Compliance Relationship Specialty Start Date End Date Deepthi Mc [address] [place] [address] PCP - General Physician Die Tester 06/15/23 documented as of this encounter
--- OUTSIDE RECORDS SUMMARY | 2024-11-23 19:05 | XMS_ITS | Clinical Summary ---
Author Organization [facility] Address [address] [place] [address] Care Team Providers Care Senior Program Analyst Name Role Phone Elsewhere, Pcp Primary Care Provider Unavailabl e Source Comments Patient records contain information from all sites at [facility]. For routine questions regarding patient records, call [phone] during business hours, M-F 8:00 AM - 5:00 PM Central Time. Record requests for emergency care only can be directed to [phone] at any time.[facility] Allergies Active Allergy Reactions Criticality [...] history of withdrawal seizures or withdrawal complications. [place] admission on 03/26/20 for alcohol withdrawal and discharged on 03/28/20. Patient is interested in quitting. Has previously tried clonidine and naltrexone. Insomnia 09/19/2016 Cyclical Vomiting Syndrome Unrelated To Migraine 04/04/2016 Depressive Disorder 05/16/2014 Anxiety Generalized Disorder 12/03/2013 Overview (03/26/2020): Under the care of Dr. Rafat Falcon for mental health care. [facility] . Initial intake 12/10/12 Previous Medication Trials: [...] ER visit for cyclic vomiting; hospitalization at [facility] 05/03 (72 hr hold); 12/01 at [facility] History of Suicide Attempts: no Asthma 12/11/2007 Overview (03/27/2020): Patient with childhood asthma, not currently requiring any inhalers or medication. Resolved Problems Problem Noted Date Diagnosed Date Resolved Date Alcohol Withdrawal Syndrome 11/13/2023 11/16/2023 Alcohol Withdrawal Syndrome 03/26/2020 07/15/2020 Acidosis Metabolic Anion Gap 03/26/2020 03/27/2020 Encounters Date Type Department Care Team Description 10/08/2024 4:05 PM CDT - 10/08/2024 11:18 PM CDT Emergency [facility] Emergency Department [address] [place] [phone] Albert Pitts M.D., M.H.P.E. Nausea And [...] e alcohol) 750 ml straight Vodka Daily [employer] Utilities Answer Date Recorded In the past 12 months has e [employer], oil, or water [employer] threatened to shut off services in your [...] living situation today? 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 LAB BLOOD NON ADD-ON Final Result [facility] [address] [place] [address], [place] DTL [facility] [address] [place] [address] * (ABNORMAL) Hepatic Function Panel (10/08/2024 4:52 [...] P.A.-C. LAB [place] [address], [address] [address] * (ABNORMAL) Morphology Eval (special smear) (10/08/2024 [...] Reviewed by: Lucy 10/08/2024 6:02 PM CDT [facility] Blood 10/08/2024 4:52 PM CDT 10/08/2024 5:09 PM CDT Christian Landa P.A.-C. LAB BLOOD ADD-ON Final Res ult [facility] [address] [place] [address], [facility] [address] [place] [address] * (ABNORMAL) CBC with Differential, Blood (10/08/2024 [...] - 6.45 x10(9)/L 10/08/2024 6:01 PM CDT [facility] Comment:Auto-diff results no t valid. See manual differential. Blood (Blood, Venous) 10/08/2024 4:52 PM CDT 10/08/2024 5:09 PM CDT Christian Landa P.A.-C. LAB BLOOD ADD-ON Final Res ult Performing Organization Address City/[facility]/ZIP Co de Phone Number [facility] [address] [place] [address], [facility] [address] [place], [place] [phone] [place] [address] [address] [place] [address] * Magnesium (10/08/2024 4:52 PM CDT) Magnesium, P 2.3 1.7 - 2.3 mg/dL 10/08/2024 5:31 PM CDT [facility] Blood (Blood, Venous) 10/08/2024 4:52 PM CDT 10/08/2024 5:10 PM CDT Christian Landa P.A.-C. LAB BLOOD ADD-ON Final Res ult Performing Organization Address [facility] Co de Phone Number [facility] [address] [place], [place] [address] [place] [address] 200 [place] [address] * (ABNORMAL) Lipase (10/08/2024 4:52 PM CDT) Lipase, S 92(H) 13 - 60 U/L 10/08/2024 5: 55 PM CDT DTL Blood (Blood, Venous) 10/08/2024 4:52 PM CDT 10/08/2024 5:35 PM CDT Christian Landa P.A.-C. LAB BLOOD ADD-ON Final Res ult [facility] [address] [place] [address], [facility] DTL [facility] [address] [place] [address] * (ABNORMAL) Basic Metabolic Panel (10/08/2024 4:52 [...] P.A.-C. LAB BLOOD ADD-ON Final Res ult [facility] [address] [place] [address], [facility] [address] [place] [address] * ECG 12 Lead (10/08/2024 4:22 PM CDT) Ventricular Rate ECG/Min 99 BPM MUSE SC Interval 138 ms MUSE QRSD Interval 86 ms MUSE QT Interval 374 ms MUSE QTC Interval 479 ms MUSE P [place] 62 degrees MUSE R [place] 60 degrees MUSE T Wave [place] 43 degrees MUSE 10/08/2024 4:22 PM CDT [...] MUSE NA from Last 3 Months Insurance [facility] Advance Directives For more information, please contact: [phone] * Full Code (Latest Code Status on [...] Due to: Not medically appropriate Care Teams Senior Program Analyst Relationship Specialty Start Date End Date Elsewhere, Pcp PCP - General Internal Medicine 03/26/24
[2024-11-23 19:12] VITALS: BP 160/126; PULSE 118; RESP 24; TEMP 36.1; O2SAT 98
--- OUTSIDE RECORDS SUMMARY | 2024-11-23 19:36 | XMS_ITS | Clinical Summary ---
Author Organization [facility] Address [address], [place] [address] Care Team Providers Care Brewmaster Name Role Phone Deepthi Mc PA-C Primary Care Provider [phone] Source Comments You are receiving this document as you are listed as the primary care provider,follow-up provider, or the patient has been referred to you for consultation.This is in compliance with the Medicare andWestern Reserve Hospitalcaid EHR Incentive Program,which states Providers who [...] history of withdrawal seizures or withdrawal complications. [place] admission on 03/26/20 for alcohol withdrawal and discharged on 03/28/20. Patient is interested in quitting. Has previously tried clonidine and naltrexone. Patient with history of alcohol abuse. No history of withdrawal seizures or withdrawal complications. 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 Pulse 77 08/11/2021 5:23 PM FLEXIBLE MACHINING SYSTEM MACHINIST Temperature 36.4 C (97.5 F) 08/11/2021 5:23 PM FLEXIBLE MACHINING SYSTEM MACHINIST Respiratory Rate 20 08/11/2021 5:23 PM FLEXIBLE MACHINING SYSTEM MACHINIST Oxygen Saturation 100% 08/11/2021 5:23 PM FLEXIBLE MACHINING SYSTEM MACHINIST Inhaled Oxygen Concentration - - Weight 104.3 kg (230 lb) 08/11/2021 5:26 PM FLEXIBLE MACHINING SYSTEM MACHINIST Height 182.9 cm (6') 08/11/2021 5:26 PM FLEXIBLE MACHINING SYSTEM MACHINIST Body Mass Index 31.19 08/11/2021 5:26 PM FLEXIBLE MACHINING SYSTEM MACHINIST Plan of Treatment Health Maintenance Due Date [...] patient's age to complete this topic Insurance [facility] Care Teams Brewmaster Relationship Specialty Start Date End Date Deepthi Mc PA-C [address] [place] [id number] PCP - General Physician Manager Food Safety 08/15/24
--- OUTSIDE RECORDS SUMMARY | 2024-11-23 19:36 | XMS_ITS | Encounter Summary ---
Author Organization [facility] Address [address] [place] [address] Care Team Providers Care Site Coordinator Name Role Phone Elsewhere, Pcp Primary Care Provider Unavailabl e Reason for Visit * Reason Comments Vomiting Encounter Details Date Type Department Care Team ([facility] st Contact Info) Description 10/08/2024 4:05 PM CDT - 10/08/2024 11:18 PM CDT Emergency [facility] Emergency Department [address] [place] [address] Albert Pitts M.D., M.H.P.E. [address] [place] [phone] Nausea And Vomiting (Primary Dx); Cyclical Vomiting Syndrome Unrelated To Migraine; Hypokalemia Discharge Disposition: Home or Self Care Social History Tobacco Use Types Packs/Day Years Used Date Smoking Tobacco: Every Day Cigarettes 0.5 8 Smokeless Tobacco: Never Comments:x 5 daily Alcohol Use Standard Drinks/Week Comments Yes 5 (1 standard drink = 0.6 oz pur e alcohol) 750 ml straight Vodka Daily [facility] Utilities Answer Date Recorded In the past 12 months has e [employer], gas, oil, or water [employer] threatened to shut off services in your [...] your living situation today? 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 Please take this medication as needed every 8 hours in order to control anxiety, nausea, and/or vomiting. Please cut down on your alcohol and marijuana usage. * Attachments The following attachments cannot be sent through Care Everywhere. * Cyclic Vomiting Syndrome Adult (Swiss) * Nausea and Vomiting Adult Fphz-fi-Uelx (Swiss) * Hypokalemia (Swiss) documented in this encounter Medications at Time [...] Hypokalemia Dr. Seferino Christianson (EM PGY3) Phone: [phone] Pager: [phone] Seferino Christianson M.D. Resident 10/09/24 [phone] * Beth Keith, RFlaviaN. - 10/08/2024 9:24 [...] - 11 % 10/08/2024 6:02 PM CDT [facility] Manual Absolute Neutrophil Count 5.94 1.56 - 6.45 x10(9)/L 10/08/2024 6:02 PM CDT [facility] Comment: ----ADDITIONAL INFORMATION---- The manual absolute [...] Reviewed by: Lucy 10/08/2024 6:02 PM CDT [facility] Blood 10/08/2024 4:52 PM CDT 10/08/2024 5:09 PM CDT us Christian Landa P.A.-C. LAB BLOOD ADD-ON Final Res ult Performing Organization Address City/[facility]/ZIP Co de Phone Number [facility] [address] [place] [address], [facility] [address] [place] [address] * Ethanol Level, Serum (10/08/2024 4:52 PM CDT) [facility] Ethanol, S <10 <10 mg/dL 10/08/2024 5:5 5 PM CDT D[facility] Blood (Blood, Venous) 10/08/2024 4:52 PM CDT 10/08/2024 5:35 PM CDT Christian Landa P.A.-C. LAB BLOOD NON ADD-ON Final Result Performing Organization Address City/[facility]/ZIP Co de Phone Number [facility] [address] [place] [address], [facility] [address] [place] [address] * Magnesium (10/08/2024 4:52 PM CDT) [facility] Magnesium, P 2.3 1.7 - 2.3 mg/dL 10/08/2024 5:31 PM CDT [facility] Blood (Blood, Venous) 10/08/2024 4:52 PM CDT 10/08/2024 5:10 PM CDT us Christian Landa P.A.-C. LAB BLOOD ADD-ON Final Res ult [facility] [address] [place] [address], [facility] STMA [facility] [address] [place] [address] * (ABNORMAL) CBC with Differential, Blood (10/08/2024 [...] - 6.45 x10(9)/L 10/08/2024 6:01 PM CDT [facility] Comment:Auto-diff results no t valid. See manual differential. Blood (Blood, Venous) 10/08/2024 4:52 PM CDT 10/08/2024 5:09 PM CDT us Christian Landa P.A.-C. LAB BLOOD ADD-ON Final Res ult Performing Organization Address City/[facility]/ZIP Co de Phone Number [facility] [address] [place] [address], [facility] STMA [facility] [address] [place] [address] DHPM [facility] [address] [place] [address] * (ABNORMAL) Lipase (10/08/2024 4:52 PM CDT) Lipase, S 92(H) 13 - 60 U/L 10/08/2024 5: 55 PM CDT [facility] Blood (Blood, Venous) 10/08/2024 4:52 PM CDT 10/08/2024 5:35 PM CDT Christian Landa P.A.-C. LAB BLOOD ADD-ON Final Res ult Performing Organization Address City/[facility]/ZIP Co de Phone Number [facility] [address] [place] [address], [facility] DTL [facility] [address] [place] [address] * (ABNORMAL) Hepatic Function Panel (10/08/2024 4:52 [...] LAB BLOOD ADD-ON Final Res ult [facility] [address] [place] [address], [facility] [address] [place] [address] * (ABNORMAL) Basic Metabolic Panel (10/08/2024 4:52 [...] ADD-ON Final Res ult Performing Organization Address [facility] Co de Phone Number [facility] [address] [place] [address], [facility] [address] [place] [address] * ECG 12 Lead (10/08/2024 4:22 PM CDT) Ventricular Rate ECG/Min 99 BPM MUSE [place] Interval 138 ms MUSE QRSD Interval 86 ms MUSE QT Interval 374 ms MUSE QTC Interval 479 ms MUSE P [place] 62 degrees MUSE R [place] 60 degrees MUSE T Wave [place] 43 degrees MUSE 10/08/2024 4:22 PM CDT [...] ORDERABLE S Final Result Performing Organization Address [facility] Co de Phone Number MUSE NA documented [...] documented as of this encounter Care Teams Site Coordinator Relationship Specialty Start Date End Date Elsewhere, Pcp PCP - General Internal Medicine 03/26/24 documented as of this encounter
--- OUTSIDE RECORDS SUMMARY | 2024-11-23 19:36 | XMS_ITS ---
Author Organization [place] Address [address] [place], [place] [id number] Phone Care Team Providers Care Graphic Specialist Name Role Phone CLAIRE TEJADA Attending Unavailable [...] Code Sys tem Cyclical vomiting syndrome 10/28/2023 [id number] S NOMED-CT Personal Care Team Section Performer Name Performer Role Active Date Inactive Da te
--- OUTSIDE RECORDS SUMMARY | 2024-11-23 19:36 | XMS_ITS | Clinical Summary ---
Author Organization [facility] Address [address] [place] [address] Care Team Providers Care Progressive Care Nurse Name Role Phone Elsewhere, Pcp Primary Care Provider Unavailabl e Source Comments Patient records contain information from all sites at [facility]. For routine questions regarding patient records, call [phone] during business hours, M-F 8:00 AM - 5:00 PM Central Time. Record requests for emergency care only can be directed to [phone] at any time.[facility] Allergies Active Allergy Reactions Criticality Noted Date [...] history of withdrawal seizures or withdrawal complications. [place] admission on 03/26/20 for alcohol withdrawal and discharged on 03/28/20. Patient is interested in quitting. Has previously tried clonidine and naltrexone. Insomnia 09/19/2016 Cyclical Vomiting Syndrome Unrelated To Migraine 04/04/2016 Depressive Disorder 05/16/2014 Anxiety Generalized Disorder 12/03/2013 Overview (03/26/2020): Under the care of Dr. Rafat Falcon for mental health care. [facility] . Initial intake 12/10/12 Previous [...] visit for cyclic vomiting; hospitalization at [facility] 05/03 (72 hr hold); 12/01 at [facility] History of [...] CDT - 10/08/2024 11:18 PM CDT Emergency [facility] Emergency Department [address] [place] [id number] Albert Pitts M.D., M.H.P.E. Nausea And [...] e alcohol) 750 ml straight Vodka Daily [employer] Utilities Answer Date Recorded In the past 12 months has e Exposed Vocals, oil, or water [employer] threatened to shut off services in your [...] your living situation today? 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 LAB BLOOD [place] [address], [address] [address] * (ABNORMAL) Morphology Eval (special smear) (10/08/2024 [...] Reviewed by: Lucy 10/08/2024 6:02 PM CDT [facility] Blood 10/08/2024 4:52 PM CDT 10/08/2024 5:09 PM CDT Christian Landa P.A.-C. LAB BLOOD ADD-ON Final Res ult [facility] [address] [place] [address], [facility] [address] [place] [address] * (ABNORMAL) CBC with Differential, Blood (10/08/2024 [...] - 6.45 x10(9)/L 10/08/2024 6:01 PM CDT [facility] Comment:Auto-diff results no t valid. See manual differential. Blood (Blood, Venous) 10/08/2024 4:52 PM CDT 10/08/2024 5:09 PM CDT Christian Landa P.A.-C. LAB BLOOD ADD-ON Final Res ult Performing Organization Address City/[facility]/ZIP Co de Phone Number [facility] [address] [place] [address], [facility] [address] [place], [place] [id number] [place] [address] [address] [place] [address] * Magnesium (10/08/2024 4:52 PM CDT) Magnesium, P 2.3 1.7 - 2.3 mg/dL 10/08/2024 5:31 PM CDT [facility] Blood (Blood, Venous) 10/08/2024 4:52 PM CDT 10/08/2024 5:10 PM CDT Christian Landa P.A.-C. LAB BLOOD ADD-ON Final Res ult Performing Organization Address [facility] Co de Phone Number [facility] [address] [place], [place] [id number] [place] [address] [address] [place] [address] * (ABNORMAL) Lipase (10/08/2024 4:52 PM CDT) Lipase, S 92(H) 13 - 60 U/L 10/08/2024 5: 55 PM CDT DTL Blood (Blood, Venous) 10/08/2024 4:52 PM CDT 10/08/2024 5:35 PM CDT Christian Landa P.A.-C. LAB BLOOD ADD-ON Final Res ult [facility] [address] [place] [address], [facility] DTL [facility] [address] [place] [address] * (ABNORMAL) Basic Metabolic Panel (10/08/2024 4:52 [...] ult [facility] [address] [place] [address], [facility] [address] [place] [address] * ECG 12 Lead (10/08/2024 4:22 PM CDT) Ventricular Rate ECG/Min 99 BPM MUSE DE Interval 138 ms MUSE QRSD Interval 86 ms MUSE QT Interval 374 ms MUSE QTC Interval 479 ms MUSE P [place] 62 degrees MUSE R [place] 60 degrees MUSE T Wave [place] 43 degrees MUSE 10/08/2024 4:22 PM CDT [...] MUSE NA from Last [address] [facility] Advance Directives For more information, please contact: [phone] * Full Code (Latest Code Status on [...] Due to: Not medically appropriate Care Teams Progressive Care Nurse Relationship Specialty Start Date End Date Elsewhere, Pcp PCP - General Internal Medicine 03/26/24
--- OUTSIDE RECORDS SUMMARY | 2024-11-23 19:38 | XMS_ITS | Clinical Summary ---
Author Organization [facility] Address [address] [place] [address] Care Team Providers Care Bi Architect Name Role Phone Jesusita Deepthi Wilkins Primary Care Provider [phone] Allergies Active Allergy Reactions Criticality Noted Date [...] history of withdrawal seizures or withdrawal complications. [place] admission on 03/26/20 for alcohol withdrawal and discharged on 03/28/20. Patient is interested in quitting. Has previously tried clonidine and naltrexone. Patient with history of alcohol abuse. No history of withdrawal seizures or withdrawal complications. [place] admission on 03/26/20 for alcohol withdrawal and discharged on 03/28/20. Patient is interested in quitting. Has previously tried clonidine and naltrexone. Patient with history of alcohol abuse. No history of withdrawal seizures or withdrawal complications. [place] admission on 03/26/20 for alcohol withdrawal and discharged on 03/28/20. Patient is interested in quitting. Has previously tried clonidine and naltrexone. Cyclical vomiting 04/04/2016 Social anxiety disorder 02/26/2016 PTSD (post-traumatic stress disorder) 05/16/2014 Overview (07/15/2021): Under the care of Dr. Rafat Falcon for mental health care. [facility] . Initial intake 12/10/12 Previous [...] [facility] History of Suicide Attempts: no Under the care of Dr. Rafat Falcon for mental health care. [facility] . Initial intake 12/10/12 Previous [...] [facility] History of Suicide Attempts: no Under the care of Dr. Rafat Falcon for mental health care. [facility] . Initial intake 12/10/12 Previous [...] [facility] History of Suicide Attempts: no Under the care of Dr. Rafat Falcon for mental health care. [facility] . Initial intake 12/10/12 Previous [...] [facility] History of Suicide Attempts: no Under the care of Dr. Rafat Falcon for mental health care. [facility] . Initial intake 12/10/12 Previous [...] [facility] History of Suicide Attempts: no Under the care of Dr. Rafat Falcon for mental health care. [facility] . Initial intake 12/10/12 Previous [...] [facility] History of Suicide Attempts: no Under the care of Dr. Rafat Falcon for mental health care. [facility] . Initial intake 12/10/12 Previous [...] in an abandoned building, in an overnight fpc, or couch-surfing.) Yes 06/23/2024 Are you worried [...] Comments Blood Pressure 122/60 07/13/2024 6:16 AM [facility] Pulse 117 07/12/2024 10:01 PM [facility] Temperature 36.7 C (98.1 F) 07/12/2024 10:01 PM [facility] Respiratory Rate 30 07/12/2024 10:01 PM [facility] Oxygen Saturation 100% 07/12/2024 10:01 PM [facility] Inhaled Oxygen Concentration - - Weight 98.9 kg (218 lb) 07/12/2024 10:01 PM [facility] Height 182.9 cm (6') 07/11/2024 3:12 PM [facility] Body Mass Index 29.57 07/11/2024 3:12 PM [facility] Plan of Treatment Health Maintenance Due Date [...] BASIC METABOLIC PANEL STAT 07/13/2024 1:19 AM [facility] from Last 3 Months or Most Recently Relevant to Health Maintenance Results * (ABNORMAL) Basic metabolic panel (07/13/2024 1:19 AM [facility]) Sodium 127(L) 135 - 145 mmol/L 07/13/2024 3:15 AM [facility] Potassium 4.4 3.4 - 5.3 mmol/L 07/13/2024 3:15 AM [facility] Chloride 91(L) 98 - [...] Unknown Venipuncture / Unknown 07/13/2024 1:19 AM [facility] 07/13/2024 1:23 AM [facility] us Jack Cornejo MD LAB - BLOOD ORDERABLES Final Res ult [facility] [address] [place] [address], [facility] from Last 3 Months or Most Recently Relevant to Health Maintenance Insurance [facility] Address: [address] [place] [id number] Advance Directives For more information, please contact: [phone] Documents on File Type Date Recorded 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 p Communication Veronica Glass Mother First Alternate Health Care Agent Suzette De La Rosa Sister Health Care Agent Larry Sapp Father Second Alternate Health Care Agent Care Teams Bi Architect Relationship Specialty Start Date End Date Deepthi Mc [address] [place] [address] PCP - General Physician Can Intake Worker 06/15/23
--- OUTSIDE RECORDS SUMMARY | 2024-11-23 19:38 | XMS_ITS | Clinical Summary ---
Author Organization [facility] Address [address] [place] [address] Care Team Providers Care Change Management Name Role Phone Deepthi Mc Primary Care [...] if needed. Active cloNIDine 0.1 mg/24 hr ([id number]) 0.1 mg/24 hr patchIndications:A nxiety,ETOH abuse APPLY [...] Dr. Rafat Falcon for mental health care. [facility] . Initial intake 12/10/12 [...] ER visit for cyclic vomiting; hospitalization at [facility] 05/03 (72 hr hold); 12/01 at [facility] History of Suicide Attempts: no Cannabis [...] Description 11/16/2024 2:00 PM CDT Office Visit [facility] [[email or web address] [address] [facility] [address] David Bryan, [facility] Visit 11/16/2024 Travel 11/08/2024 2:40 PM CDT Office Visit [facility] [[email or web address] [address] [facility] [address] Deepthi Mc PA Follow Up; Concerns (Was exposed to strep from niece, throat is just scratchy, did start taking amox that he had at home) 11/08/2024 Travel 11/04/2024 Telephone [facility] [[email or web address]] [address] [place] [address] Deepthi Mc PA FYI (News regarding patient) 10/25/2024 2:40 PM CDT Office Visit [facility] [[email or web address]] [address] [place] [address] Deepthi Mc PA Medication Management 10/25/2024 Travel 10/08/2024 Telephone [facility] [[email or web address]] [address] [place] [address] Deepthi Mc PA Questions 09/27/2024 2:00 PM CDT Office Visit [facility] [[email or web address]] [address] [place] [address] Deepthi Mc PA Medication Management (Pristiq & Cymbalta - is done with the pristiq but has not started the cymbalta yet) 09/27/2024 Travel 09/22/2024 Refill [facility] [[email or web address]] [address] [place] [address] Deepthi Mc PA Refill Request (Refill request ) 09/06/2024 2:40 PM CHEMISTRY TECHNICAL OFFICER Office Visit [facility] [[email or web address]] [address] [place] [address] Deepthi Mc PA Medication Management 09/06/2024 Travel 09/01/2024 2:00 PM CHEMISTRY TECHNICAL OFFICER Office Visit [address] [place] [address] Alanna Erwin PA Consult (Conductive hearing loss [...] on file Legal Sex Male 5:18 AM CHEMISTRY TECHNICAL OFFICER Gender Identity Not on file Sexual Orientation [...] Description 11/29/2024 2:40 PM CDT Office Visit [facility] [[email or web address]] [address] [place] [address] Deepthi Mc PA [address] [place] [address] Health Maintenance Due Date Last Done Comments [...] AM CDT) ANTI HIV 1/2 Non-reacti ve [facility] Blood specimen (specimen) BLOOD SPECIMEN / Unknown 10/15/2013 9:28 AM CDT 10/15/2013 9:13 AM CDT us Luis Jarrett MD SEND OUTS Final Res ult [facility] INTERNAL ZIP [address] [place] [phone] from Last 3 Months or Most Recently Relevant to Health Maintenance Insurance [facility] Advance Directives * Full Code (Latest Code Status on File) Date Activated Date Inactivated Comments 05/15/2014 4:32 PM 05/18/2014 8:52 PM * Full Code Date Activated Date Inactivated Comments 05/02/2014 7:01 PM 05/07/2014 1:56 PM Care Teams Change Management Relationship Specialty Start Date End Date Deepthi Mc PA [address] [place] [address] PCP - General Family Practice 03/04/11
--- OUTSIDE RECORDS SUMMARY | 2024-11-23 19:38 | XMS_ITS | Encounter Summary ---
Author Organization [place] Address [facility] [place] [address] Care Team Providers Care Director Of Direct Marketing Name Role Phone Deepthi Mc Primary Care Provider [phone] Reason for Visit * Reason Onset Date Comments MH/CD Inpatient 12/08/2013 Encounter Details Date Type Department Care Team ([facility] st Contact Info) Description 12/08/2013 Telephone [facility] Intake [address] [place] [phone] Generic, Behavioral Intake, MH/CD Inpatient Social History [...] COVID-19? 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 # [phone] B: Pt was BIB mother to [place] ED 12/06/13 for self induced vomiting; OCD [...] have not pursued commitment at this time. [facility] will be unable to take him at this time. If commitment is supported by [facility], I invited Katarzyna to call back and check on bed availability. documented in this encounter Plan of Treatment Not on file documented as of this encounter Visit Diagnoses Not on filedocumented in this encounter Additional Health Concerns Infection Onset Date Last Indicated Resolved Time Rule Out C-difficile 08/13/2023 08/13/2023 024 8:43 AM OCCUPATIONAL HEALTH PHYSIOTHERAPIST documented as of this encounter Care Teams Director Of Direct Marketing Relationship Specialty Start Date End Date Deeptih Mc [address] [place] [address] PCP - General Physician Detail Maker And Fitter 06/15/23 documented as of this encounter
--- NOTE | 2024-11-23 20:04 | ED_ITS ---
HPI - Nausea/Vomiting/Diarrhea General Date Seen: 11/23/24 Chief complaint: Nausea/Vomiting Stated complaint: vomiting Time Seen by Provider: 11/23/24 19:18 Source: patient Mode of arrival: ambulatory Limitations: no limitations History of Present Illness HPI Narrative: Patient is a 29-year-old male presenting to the emergency department for nausea and vomiting. He has a long history of cannabinoid hyperemesis syndrome and has been seen by several emergency department for this. He continues to smoke marijuana but states he last smoked 1 week ago. States symptoms have been going on for 2 days with vomiting multiple times with lower abdominal pain. States this feels exactly like his previous episodes of hyperemesis cannabinoid syndrome. States he sees a given Toradol, Reglan, Benadryl, Zyprexa help with his symptoms. States IM medications work best for him. He is also a chronic alcohol abuse patient. States last drink was 3 or 4 days ago. Denies seizures, tremors, hallucinations or any other concerns. Again was states this feels just like his previous cannabinoid hyperemesis syndrome episodes. Denies chest pain, shortness of breath, fevers, chills, weakness, numbness. No other concerns noted Related Data Home Medications ?Medication ?Instructions ?Recorded ?Confirmed desvenlafaxine succinate 50 mg 50 mg PO DAILY 02/13/22 11/23/24 tablet,extended release 24 hr hydroxyzine HCl 25 mg tablet 25 - 50 mg PO Q6H PRN 02/13/22 11/23/24 lisinopril 10 mg tablet 10 mg PO DAILY 02/13/22 11/23/24 lorazepam 0.5 mg tablet 0.5 mg PO DAILY PRN 02/13/22 11/23/24 ondansetron 4 mg disintegrating 4 mg PO Q8H PRN 02/13/22 11/23/24 tablet prochlorperazine 25 mg rectal 25 mg SD Q12H PRN 02/13/22 11/23/24 suppository trazodone 50 mg tablet 25 mg PO HS PRN 08/14/22 11/23/24 clonidine 0.1 mg/24 hr weekly 1 patch topical .weekly 05/12/24 11/23/24 transdermal patch dextroamphetamine-amphetamine 10 5 - 10 mg PO DAILY 05/12/24 11/23/24 mg tablet (Adderall) dextroamphetamine-amphetamine ER 20 mg PO DAILY 05/12/24 11/23/24 20 mg 24hr capsule,extend release (Adderall XR) gabapentin 600 mg tablet 600 mg PO HS 05/12/24 11/23/24 melatonin 3 mg tablet 3 mg PO HS PRN 05/12/24 11/23/24 naltrexone 50 mg tablet 50 mg PO DAILY 05/12/24 11/23/24 Previous Rx's ?Medication ?Instructions ?Recorded potassium bicarbonate-citric acid 25 meq PO BID #4 ea 05/13/24 25 mEq effervescent tablet sodium chloride 1,000 mg soluble 1,000 mg PO TID #10 tabs 05/13/24 tablet promethazine 50 mg rectal 50 mg SD Q6H PRN #12 ea 09/21/24 suppository Allergies Allergy/AdvReac Type Severity Reaction Status Date / Time haloperidol (From Haldol) Allergy Verified 11/23/24 19:17 olanzapine (From Zyprexa) AdvReac Intermediate Cramping Verified 11/23/24 19:17 of the Muscles Review of Systems Status of ROS: Reports: 10 or more systems reviewed and unremarkable except as noted in History and below [facility] Medical History Cannabinoid hyperemesis syndrome ?R11.2 - Nausea with vomiting, unspecified (ICD-10) ?F12.90 - Cannabis use, unspecified, uncomplicated (ICD-10) Cannabinosis ?J66.2 - Cannabinosis (ICD-10) Severe anxiety with panic ?F41.0 - Panic disorder [episodic paroxysmal anxiety] (ICD-10) Normal colonoscopy Normal esophagogastroduodenoscopy (EGD) ?Z01.89 - Encounter for other specified special examinations (ICD-10) Cyclical vomiting ?R11.15 - Cyclical vomiting syndrome unrelated to migraine (ICD-10) Anxiety ?F41.9 - Anxiety disorder, unspecified (ICD-10) Substance abuse ?F19.10 - Other psychoactive substance abuse, uncomplicated (ICD-10) Surgical History History of myringotomy ?Z98.890 - Other specified postprocedural states (ICD-10) Family History Father Alcohol dependence Drug dependence Suicidal behavior with attempted self-injury Social History Narrative: Patient lives with his mother and stepfather; 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 His mother is healthcare power of county attorney and code status is full. History of alcohol and cannabis abuse. Current cigarette smoking. What is your current living situation?: declined to answer Problems where you live: declined to answer In the past 12 months, utilities in danger of being shut off: declined to answer In past 12 months, lack of transportation kept you from medical appts, meetings, work, or getting things needed for daily living: declined to answer In the past 12 mos, have been you worried that your food would run out before you had money to buy more?: declined to answer In the past 12 mos, the food you bought just didn't last and you didn't have money to buy more?: declined to answer Highest level of school completed/degree received: Associate degree: occupational, technical, vocational program Smoking Status: Current every day smoker What tobacco products do you use: cigarettes Smoking packs per day: 0.5 Smoking cigarettes per day: 10.0 Years smoked: 10 Smoking pack-years: 5.00 Smoking quit date/years: >15 years ago Do you use any of these nicotine containing products: E-Cigarettes and Vaping Products Second hand tobacco smoke exposure: No How often do you have a drink containing alcohol: 4 or more times a week Alcohol type: hard liquor How many standard drinks containing alcohol do you have on a typical day: 5 or 6 How often do you have six or more drinks on one occasion: Daily or almost daily AUDIT-C Alcohol total score: 10 Non-prescribed substance use: marijuana (any form) Caffeine: Yes How often does anyone, including family, friends and others, physically hurt you : decline to answer How often does anyone, including family, friends and others, insult or talk down to you: decline to answer How often does anyone, including family, friends and others, threaten you with harm: decline to answer How often does anyone, including family, friends and others, scream or curse at you: decline to answer service: No Health Related Social Needs: unsheltered homelessness (Z59.02) Exam Narrative: Exam Narrative: Const: Well-nourished, Well-developed, in mild distress Eyes: PERRL, no conjunctival injection, and symmetrical lids HENT: Atraumatic external nose and ears. Moist mucous membranes. Neck: Symmetric, trachea midline, No thyromegaly. CVS: Tachycardic, No murmurs or gallops. Peripheral pulses 2+ and equal in all extremities RESP: Unlabored respiratory effort. Clear to auscultation bilaterally. GI: Nontender/Nondistended, No rebound or guarding. MSK:Extremities w/o deformity, Normal Active ROM Skin: Warm, Dry. No rashes or lesions. Neuro: Normal Muscle tone, No focal neurological deficits. Psych: Awake, Alert, & Oriented x3. Appropriate mood and affect. Const: Vital Signs, click to edit/add: Vital Signs - 24 hr 11/23/24 19:12 Temperature 96.9 F L Pulse Rate [Pulse Oximeter] 118 H Respiratory Rate 24 Blood Pressure [Ri ght Upper Arm] 160/126 H Pulse Oximetry 98 Oxygen Delivery Me thod Room Air Course Vital Signs Vital signs: Initial Vital Signs Temperature 96.9 F L 11/23/24 19:12 Temperature Source Temporal Artery Scan 11/23/24 19:12 Pulse Rate 118 H 11/23/24 19:12 Respiratory Rate 11/23/24 19:12 Blood Pressure 160/126 H 11/23/24 19:12 Blood Pressure Mean 137 H 11/23/24 19:12 Pulse Oximetry 98 11/23/24 19:12 Oxygen Delivery Method Room Air 11/23/24 19:12 Vital Signs Temperature 96.9 F L 11/23/24 19:12 Pulse Rate 118 H 11/23/24 19:12 Respiratory Rate 24 11/23/24 19:12 Blood Pressure 160/126 H 11/23/24 19:12 Pulse Oximetry 98 11/23/24 19:12 Oxygen Delivery Method Room Air 11/23/24 19:12 Temperature 96.9 F L 11/23/24 19:12 Pulse Rate 118 H 11/23/24 19:12 Respiratory Rate 24 11/23/24 19:12 Blood Pressure 160/126 H 11/23/24 19:12 Pulse Oximetry 98 11/23/24 19:12 Oxygen Delivery Method Room Air 11/23/24 19:12 Medications Administered Medications: Discontinued Medications Generic Name Dose Route Start Last Admin Trade Name Kleber PRN Reason Stop Dose Admin Diphenhydramine HCl 50 mg 11/23/24 19:25 11/23/24 20:12 Diphenhydramine 50 Mg/Ml Inj IM 11/23/24 19:26 50 mg ONCE ONE Administration Ketorolac Tromethamine 30 mg 11/23/24 19:25 11/23/24 20:16 Ketorolac 30 Mg/Ml Inj IM 11/23/24 19:26 30 mg ONCE ONE Administration Olanzapine 10 mg 11/23/24 19:25 11/23/24 20:20 Olanzapine 5 Mg/Ml Inj IM 11/23/24 19:26 10 mg ONCE ONE Administration MDM - Nausea/Vomiting/Diarrhea MDM Narrative Medical decision making narrative: Patient is a 29-year-old male presenting nausea and vomiting. Does have lower abdominal pain but he states this is consistent with his hyperemesis. Due to this I do not believe repeat imaging is necessary. Will treat him with Reglan, Benadryl, Zyprexa, Toradol. Did do an EKG prior to make sure he does not have a widened QRS. EKG was normal. He also has a history of alcohol abuse and is tachycardic and mildly hypertensive. This could be related to his hyperemesis syndrome but we will do CIWA to check for signs of alcohol withdrawal. His CIWA was non concerning. He did not take the Reglan as he did not want any p.o. medication. He is feeling better after the other medication. Does not appear to be actively dehydrated. He states he feels comfortable to go home. His mother is in the room now and was asking of labs were done. I informed her that they want done as he does not appear dehydrated on my exam but if they want lab work to be done I will order it. They declined. ECG Data Attestation: I personally reviewed and interpreted this ECG as follows: Prior ECG tracings: available for review Interpretation: Normal sinus rhythm with a rate of 84 beats per minute, normal intervals, normal axis, no ST or T-wave abnormalities. Discharge Plan Discharge Clinical Impression: Cannabinoid hyperemesis syndrome Patient Disposition: Home, Self-Care Condition: Improved Instructions: Cannabis Use Disorder (ED) Additional Instructions: It is extremely important that you stop smoking marijuana complete thing and abstain from alcohol as this will continue to occur. Prescriptions: No Action lorazepam 0.5 mg tablet 0.5 mg PO DAILY PRN prochlorperazine 25 mg suppository 25 mg SD Q12H PRN lisinopril 10 mg tablet 10 mg PO DAILY hydroxyzine HCl 25 mg tablet 25 - 50 mg PO Q6H PRN ondansetron 4 mg tablet,disintegrating 4 mg PO Q8H PRN Patient Comments: DISSOLVE 1 TABLET ON THE TONGUE EVERY 8 HOURS NEEDED FOR NAUSEA OR VOMITING desvenlafaxine succinate 50 mg tablet extended release 24 hr 50 mg PO DAILY trazodone 50 mg tablet 25 mg PO HS PRN clonidine 0.1 mg/24 hr patch weekly 1 patch topical .weekly melatonin 3 mg tablet 3 mg PO HS PRN dextroamphetamine-amphetamine [Adderall XR] 20 mg capsule,extended release 24hr 20 mg PO DAILY dextroamphetamine-amphetamine [Adderall] 10 mg tablet 5 - 10 mg PO DAILY gabapentin 600 mg tablet 600 mg PO HS naltrexone 50 mg tablet 50 mg PO DAILY sodium chloride 1,000 mg tablet,soluble 1,000 mg PO TID Qty: 10 0RF potassium bicarb-citric acid 25 mEq tablet, effervescent 25 meq PO BID Qty: 4 0RF promethazine 50 mg suppository 50 mg SD Q6H PRNQty: 12 0RF Follow Up/Referrals: Deepthi Mc PA-C [Primary Care Provider] - Stand Alone Forms: [facility] Info Instructions
[2024-11-23] MEDS: diphenhydrAMINE 50 MG/ML inj IM (20:12)
--- NOTE | 2024-11-23 20:15 | ED.NURSE ---
pt stated could not take anything PO at the moment
[2024-11-23] MEDS: KETOROLAC 30 MG/ML inj IM (20:16)
[2024-11-23] MEDS: OLANZapine 5 MG/ML inj 10 MG IM (20:20)
--- NOTE | 2024-11-23 20:20 | ED.NURSE ---
pt states Olanzapine allergy listed is not an actual allergy. pt would like the medication
[2024-11-23] MEDS: METOCLOPRAMIDE 10 MG TABLET PO (20:55)
--- NOTE | 2024-11-23 21:00 | ED.NURSE ---
pt now able to take his pill per request. Pt kept pill down without vomiting.
== END 2024-11-23 21:02 | disposition home or self-care (01) ==
PROVIDERS: Emergency Provider Student in an Organized Health Care Education/Training Program; PCP Physician Assistant Medical
DX: R11.2 Nausea with vomiting, unspecified (principal); F12.99 Cannabis use, unspecified with unspecified cannabis-induced disorder
CPT/HCPCS: 93005; 96372; 99284; A9270; J1200; J1885

== ENCOUNTER 2024-12-04 15:30 | Emergency (ER) | payer BC, SELFPAY ==
[2024-12-04 15:48] VITALS: BP 190/118; PULSE 86; RESP 22; TEMP 36; O2SAT 100
--- NOTE | 2024-12-04 16:47 | ED.NAVMDI ---
HPI - Nausea/Vomiting/Diarrhea General Date Seen: 12/04/24 Chief complaint: Nausea/Vomiting Stated complaint: vomiting, tremors Time Seen by Provider: 12/04/24 16:13 Source: patient and family Mode of arrival: ambulatory Limitations: no limitations History of Present Illness HPI Narrative: patient is a 29-year-old male with a history of cannabinoid hyperemesis syndrome presenting to the emergency department for nausea and vomiting. He is well known to this emergency department for these exact same symptoms. He states symptoms feel just like previously. Was last seen 11 days ago. typically when he is here he gets IM Toradol, Reglan, Benadryl and Zyprexa. Yet these medications 11 days ago states than not seem to fully help and symptoms and lack away until 2 days later. He was doing well for week and then developed symptoms again 2 days ago. Has not been able to eat or drink anything since then. Denies chest pain, shortness of breath, fevers, chills, weakness, numbness, abdominal pain. Has not lost any blood in his stool. Has had a previous endoscopy which showed some ulceration. He never did get a colonoscopy. Related Data Home Medications ?Medication ?Instructions ?Recorded ?Confirmed desvenlafaxine succinate 50 mg 50 mg PO DAILY 02/13/22 12/04/24 tablet,extended release 24 hr hydroxyzine HCl 25 mg tablet 25 - 50 mg PO Q6H PRN 02/13/22 12/04/24 lisinopril 10 mg tablet 10 mg PO DAILY 02/13/22 12/04/24 lorazepam 0.5 mg tablet 0.5 mg PO DAILY PRN 02/13/22 12/04/24 ondansetron 4 mg disintegrating 4 mg PO Q8H PRN 02/13/22 12/04/24 tablet prochlorperazine 25 mg rectal 25 mg IA Q12H PRN 02/13/22 12/04/24 suppository trazodone 50 mg tablet 25 mg PO HS PRN 08/14/22 12/04/24 clonidine 0.1 mg/24 hr weekly 1 patch topical .weekly 05/12/24 12/04/24 transdermal patch dextroamphetamine-amphetamine 10 5 - 10 mg PO DAILY 05/12/24 12/04/24 mg tablet (Adderall) dextroamphetamine-amphetamine ER 20 mg PO DAILY 05/12/24 12/04/24 20 mg 24hr capsule,extend release (Adderall XR) gabapentin 600 mg tablet 600 mg PO HS 05/12/24 12/04/24 melatonin 3 mg tablet 3 mg PO HS PRN 05/12/24 12/04/24 naltrexone 50 mg tablet 50 mg PO DAILY 05/12/24 12/04/24 Previous Rx's ?Medication ?Instructions ?Recorded potassium bicarbonate-citric acid 25 meq PO BID #4 ea 05/13/24 25 mEq effervescent tablet sodium chloride 1,000 mg soluble 1,000 mg PO TID #10 tabs 05/13/24 tablet promethazine 50 mg rectal 50 mg IA Q6H PRN #12 ea 09/21/24 suppository Allergies Allergy/AdvReac Type Severity Reaction Status Date / Time haloperidol (From Haldol) Allergy Verified 12/04/24 15:46 Review of Systems Status of ROS: Reports: 10 or more systems reviewed and unremarkable except as noted in History and below [facility] Medical History Cannabinoid hyperemesis syndrome ?R11.2 - Nausea with vomiting, unspecified (ICD-10) ?F12.90 - Cannabis use, unspecified, uncomplicated (ICD-10) Cannabinosis ?J66.2 - Cannabinosis (ICD-10) Severe anxiety with panic ?F41.0 - Panic disorder [episodic paroxysmal anxiety] (ICD-10) Normal colonoscopy Normal esophagogastroduodenoscopy (EGD) ?Z01.89 - Encounter for other specified special examinations (ICD-10) Cyclical vomiting ?R11.15 - Cyclical vomiting syndrome unrelated to migraine (ICD-10) Anxiety ?F41.9 - Anxiety disorder, unspecified (ICD-10) Substance abuse ?F19.10 - Other psychoactive substance abuse, uncomplicated (ICD-10) Surgical History History of myringotomy ?Z98.890 - Other specified postprocedural states (ICD-10) Family History Father Alcohol dependence Drug dependence Suicidal behavior with attempted self-injury Social History Narrative: Patient lives with his mother and stepfather; 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 His mother is healthcare power of divorce attorney and code status is full. History of alcohol and cannabis abuse. Current cigarette smoking. What is your current living situation?: declined to answer Problems where you live: declined to answer In the past 12 months, utilities in danger of being shut off: declined to answer In past 12 months, lack of transportation kept you from medical appts, meetings, work, or getting things needed for daily living: declined to answer In the past 12 mos, have been you worried that your food would run out before you had money to buy more?: declined to answer In the past 12 mos, the food you bought just didn't last and you didn't have money to buy more?: declined to answer Highest level of school completed/degree received: Associate degree: occupational, technical, vocational program Smoking Status: Current every day smoker What tobacco products do you use: cigarettes Smoking packs per day: 0.5 Smoking cigarettes per day: 10.0 Years smoked: 10 Smoking pack-years: 5.00 Smoking quit date/years: >15 years ago Do you use any of these nicotine containing products: E-Cigarettes and Vaping Products Second hand tobacco smoke exposure: No How often do you have a drink containing alcohol: 4 or more times a week Alcohol type: hard liquor How many standard drinks containing alcohol do you have on a typical day: 5 or 6 How often do you have six or more drinks on one occasion: Daily or almost daily AUDIT-C Alcohol total score: 10 Non-prescribed substance use: marijuana (any form) Caffeine: Yes How often does anyone, including family, friends and others, physically hurt you: decline to answer How often does anyone, including family, friends and others, insult or talk down to you: decline to answer How often does anyone, including family, friends and others, threaten you with harm: decline to answer How often does anyone, including family, friends and others, scream or curse at you: decline to answer service: No Health Related Social Needs: unsheltered homelessness (Z59.02) Exam Narrative: Exam Narrative: Const: Well-nourished, Well-developed, in mild distress Eyes: PERRL, no conjunctival injection, and symmetrical lids HENT: Atraumatic external nose and ears. Moist mucous membranes. Neck: Symmetric, trachea midline, No thyromegaly. CVS: RRR, No murmurs or gallops. Peripheral pulses 2+ and equal in all extremities RESP: Unlabored respiratory effort. Clear to auscultation bilaterally. GI: Nontender/Nondistended, No rebound or guarding. MSK:Extremities w/o deformity, Normal Active ROM Skin: Warm, Dry. No rashes or lesions. Neuro: Normal Muscle tone, No focal neurological deficits. Psych: Awake, Alert, & Oriented x3. Appropriate mood and affect. Const: Vital Signs, click to edit/add: Vital Signs - 24 hr 12/04/24 15:48 12/04/24 17:28 Temperature 96.8 F L Pulse Rate [Pulse Oximeter] 86 72 Respiratory Rate 22 Blood Pressure [Ri ght Upper Arm] 190/118 H 133/76 Pulse Oximetry 100 98 Oxygen Delivery Me thod Room Air Room Air Course Vital Signs Vital signs: Initial Vital Signs Temperature 96.8 F L 12/04/24 15:48 Temperature Source Temporal Artery Scan 12/04/24 15:48 Pulse Rate 86 12/04/24 15:48 Respiratory Rate 22 12/04/24 15:48 Blood Pressure 190/118 H 12/04/24 15:48 Blood Pressure Mean 142 H 12/04/24 15:48 Pulse Oximetry 100 12/04/24 15:48 Oxygen Delivery Method Room Air 12/04/24 15:48 Vital Signs Temperature 96.8 F L 12/04/24 15:48 Pulse Rate 86 12/04/24 15:48 Respiratory Rate 22 12/04/24 15:48 Blood Pressure 190/118 H 12/04/24 15:48 Pulse Oximetry 100 12/04/24 15:48 Oxygen Delivery Method Room Air 12/04/24 15:48 Temperature 96.8 F L 12/04/24 15:48 Pulse Rate 72 12/04/24 17:28 Respiratory Rate 22 12/04/24 15:48 Blood Pressure 133/76 12/04/24 17:28 Pulse Oximetry 98 12/04/24 17:28 Oxygen Delivery Method Room Air 12/04/24 17:28 Medications Administered Medications: Discontinued Medications Generic Name Dose Route Start Last Admin Trade Name Freq PRN Reason Stop Dose Admin Diazepam 5 mg 05/17/25 16:28 12/04/24 17:24 Diazepam 5 Mg/Ml Inj IM 12/04/24 16:29 5 mg ONCE ONE Administration Diphenhydramine HCl 50 mg 12/04/24 16:28 12/04/24 17:25 Diphenhydramine 50 Mg/Ml Inj IM 12/04/24 16:29 50 mg ONCE ONE Administration Sodium Chloride 1,000 mls @ 1,000 mls/hr 12/04/24 17:45 12/04/24 18:23 0.9 % Sodium Chloride 1000 Ml IV 12/04/24 18:44 1,000 mls/hr .Q1H JOSE Administration Ketorolac Tromethamine 30 mg 12/04/24 16:28 12/04/24 17:24 Ketorolac 30 Mg/Ml Inj IM 12/04/24 16:29 30 mg ONCE ONE Administration Olanzapine 10 mg 12/04/24 18:02 12/04/24 18:30 Olanzapine 5 Mg/Ml Inj IM 12/04/24 18:03 10 mg ONCE ONE Administration Ondansetron HCl 4 mg 12/04/24 16:28 12/04/24 17:23 Ondansetron Odt 4 Mg Tab PO 12/04/24 16:29 4 mg ONCE ONE Administration MDM - Nausea/Vomiting/Diarrhea MDM Narrative Medical decision making narrative: patient is a 29-year-old male presenting for nausea and vomiting. He states the symptoms are just like his previous cannabinoid hyperemesis syndrome. Would like to try Valium this time instead of Zyprexa. Has had benzodiazepines for the symptoms before which have helped. Will trial of Valium, Toradol, Zofran, Benadryl Per his request. will also check a BMP and magnesium to make sure his electrolytes are normal. Does not appear overtly dehydrated at this time. Patient's lab work returned showing very mild hyponatremia at 01:30. Will give him a L of fluids. Magnesium and potassium within normal limits. He was feeling some nausea still so IM Zyprexa was ordered. After this he is feeling much better and feels safe for discharge. Patient will be discharged. Lab Data Labs: Lab Results 12/04/24 Range/Units 16:47 Sodium 130 L (135-149) mmol/L Potassium 3.6 (3.6-5.1) mmol/L Chloride 91 L (96-114) mmol/L Carbon Dioxide 29 (20-32) mmol/L Anion Gap 10 (7-15) mEq/L BUN 17 (5-24) mg/dL Creatinine 1.0 (0.5-1.5) mg/dL Estimated GFR 104 ml/min Glucose 98 (60-115) mg/dL Calcium 10.0 (8.4-10.6) mg/dL Magnesium 1.7 (1.5-2.6) mg/dL Discharge Plan Discharge Clinical Impression: Cyclical vomiting Patient Disposition: Home, Self-Care Condition: Stable Additional Instructions: As always recommend abstaining from alcohol and marijuana use. Do think he should follow up with primary care provider in GI provider. Return to emergency department for new or worsening symptoms Prescriptions: No Action lorazepam 0.5 mg tablet 0.5 mg PO DAILY PRN prochlorperazine 25 mg suppository 25 mg IA Q12H PRN lisinopril 10 mg tablet 10 mg PO DAILY hydroxyzine HCl 25 mg tablet 25 - 50 mg PO Q6H PRN ondansetron 4 mg tablet,disintegrating 4 mg PO Q8H PRN Patient Comments: DISSOLVE 1 TABLET ON THE TONGUE EVERY 8 HOURS NEEDED FOR NAUSEA OR VOMITING desvenlafaxine succinate 50 mg tablet extended release 24 hr 50 mg PO DAILY trazodone 50 mg tablet 25 mg PO HS PRN clonidine 0.1 mg/24 hr patch weekly 1 patch topical .weekly melatonin 3 mg tablet 3 mg PO HS PRN dextroamphetamine-amphetamine [Adderall XR] 20 mg capsule,extended release 24hr 20 mg PO DAILY dextroamphetamine-amphetamine [Adderall] 10 mg tablet 5 - 10 mg PO DAILY gabapentin 600 mg tablet 600 mg PO HS naltrexone 50 mg tablet 50 mg PO DAILY sodium chloride 1,000 mg tablet,soluble 1,000 mg PO TID Qty: 10 0RF potassium bicarb-citric acid 25 mEq tablet, effervescent 25 meq PO BID Qty: 4 0RF promethazine 50 mg suppository 50 mg IA Q6H PRNQty: 12 0RF Follow Up/Referrals: Deepthi Mc, ZENY [Primary Care Provider] - Stand Alone Forms: [facility] Info Instructions
[2024-12-04] MEDS: ONDANSETRON ODT 4 MG TAB PO (17:23)
[2024-12-04] MEDS: KETOROLAC 30 MG/ML inj IM (17:24)
[2024-12-04] MEDS: diazePAM 5 MG/ML inj IM (17:24)
[2024-12-04] MEDS: diphenhydrAMINE 50 MG/ML inj IM (17:25)
[2024-12-04 17:28] VITALS: BP 133/76; PULSE 72; O2SAT 98
[2024-12-04 17:37] LABS: Chloride* 91 mmol/L (96-114); Potassium* 3.6 mmol/L (3.6-5.1); Sodium* 130 mmol/L (135-149)
[2024-12-04 17:40] LABS: Anion Gap 10 mEq/L (7-15); Blood Urea Nitrogen* 17 mg/dL (5-24); Carbon Dioxide* 29 mmol/L (20-32); Estimated Glomerular Filt Rate 104 ml/min; Glucose* 98 mg/dL (60-115); Magnesium* 1.7 mg/dL (1.5-2.6)
[2024-12-04] MEDS: 0.9 % SODIUM CHLORIDE 1000 ml 1,000 ML IV (18:23)
[2024-12-04] MEDS: OLANZapine 5 MG/ML inj 10 MG IM (18:30)
== END 2024-12-04 19:33 | disposition home or self-care (01) ==
PROVIDERS: Emergency Provider Student in an Organized Health Care Education/Training Program; PCP Physician Assistant Medical
DX: R11.15 Cyclical vomiting syndrome unrelated to migraine (principal)
CPT/HCPCS: 36415; 80048; 83735; 96372; 99283; 99284; A9270; J1200; J1885; J3360; J7030

== ENCOUNTER 2024-12-22 19:08 | Emergency (ER) | payer BC, SELFPAY ==
--- OUTSIDE RECORDS SUMMARY | 2014-05-02 19:00 | XMS_ITS | Continuity of Care Document ---
Author Organization [facility] Address [address] [address] [place] [address] Phone Care Team Providers Care Bobbin Cleaner Hand Name Role Phone Chris WINTERS, Ahmed Unavailable Unavailable Allergies, Adverse Reactions, Alerts Substance Reaction Status Criticality No Known allergies Medications Medication Instructions Dosage Effective Dates (start - stop) Status Comments Prozac 40 mg capsule take 1 capsule (40M G) by oral route every day in the morning 40 MG - Active albuterol sulfate HFA 90 mcg/actuation Aerosol Inhaler inhale 2 puff by inhalation route 2 times every day as needed 2 puff - Active omeprazole 20 mg capsule,delayed release take 1 capsule (20MG) by oral route every day before a meal 20 MG - Active ranitidine 150 mg tablet take 1 tablet (150MG) by oral route every day - Active multivitamin tablet take 1 tablet by ora l route every day with food - Active Procedures Procedure Date Init Hosp-da E&m Mod Severity 4 Colonoscopy Flex; W/bx 1/mx Ugi Endo; W/bx 1/mx Level Iv-surg Path Gross/micro 13 Offic/outpt E&m New Mod-hi Routine Serum Collection General Health Panel Sed Rate, Erythrocyte; Auto C-reactive Prot Advance Directives Directive Yes / No Effective Date File Name No Information Encounters Encounter Description Practice Location Reason(s) For Visit Diagnoses Date Provider Providers Copied on Encounter Init Hosp-da E&m Mod Severity [facility], [address] [address], [place], [id number], [place] tel:[phone] [facility] No Information 4 Chris Crawford. [address] [facility], [address], [place], [id number] , [place]. [phone] Referring Provider: Lazaro Bryant MD, [address] [place], [address]. tel:[phone] [facility], [address] [address], [place], [id number], [place] tel:[phone] [facility] Gastroduodenal Dis NosAbdominal Pain, UnspecifiedWeight LossGastroduodenal Dis NosWeight LossAbdominal Pain, Unspecified 3 Dominic Nayak. [address] [facility], [address], [place], [id number] , [place]. [phone] Referring Provider: Deepthi GUERRERO, [address] [place] [address], [address]. tel:[phone] Offic/outpt E&m New Mod-hi [facility], [address] [address], [place], [id number], [place] tel:[phone] [facility] Abdominal pain (chief complaint) Vomiting (chief complaint) Abd Pain GeneralizedNausea With Vomiting 3 Ole Soto. [address] [facility], [address], [facility] [place], [id number] , [place]. [phone] Referring Provider: Brina Wilkins, [address] [place], [address]. tel:[phone] Family History Family Member Type Diagnosis Age At Onset First degree family history Problem (finding) No histo ry of Crohn's Maternal grandmother Problem (finding) Colon Polyps First degree family history Problem (finding) No Family history of No history of Colon Polyps First degree family history Problem (finding) No history of Ulcerative Colitis First degree family history Problem (finding) GERD First degree family history Problem (finding) No history of Colon Rectal Cancer Paternal grandmother Problem (finding) malignant neoplasm of uterus Maternal grandmother Problem (finding) peptic ulcerati on Paternal grandfather Problem (finding) Cancer, unknown First degree family history Problem (finding) Irritabl e bowel disease Maternal grandmother Problem (finding) Liver Gallbladd er Disease Payers Payer name Insurance type Covered libertarian ID Authoriza tion(s) No Information Social History Type Description Quantity Date Captured Comments Sex Male Smoking Status No Information Chief Complaint And Reason For Visit No Information Reason For Referral Reason For Referral No Information History Of Present Illness Encounter Date Complaint History Of Prese nt Illness No Information Functional Status Date Functional Assessmen t No Information Instructions Date Instruction Additional Infor mation No Information Assessments Type Assessment Date No Information Patient Care Teams Name Effective Dates (start - stop) Status Members No Information
--- OUTSIDE RECORDS SUMMARY | 2014-05-02 19:00 | XMS_ITS | Continuity of Care Document ---
Author Organization [facility] Address [address] [address] [place] [address] Phone Care Team Providers Care Military Personnel Specialist Name Role Phone Chris WINTERS, Ahmed Unavailable [...] on Encounter Init Hosp-da E&m Mod Severity [facility], [address] [address], [place], [id number], [place] tel:[phone] [facility] No Information 4 Chris Crawford. [address] [facility], [address], [place], [id number] , [place]. [phone] Referring Provider: Lazaro Bryant MD, [address] [place], [address]. tel:[phone] [facility], [address] [address], [place], [id number], [place] tel:[phone] [facility] Gastroduodenal Dis NosAbdominal Pain, UnspecifiedWeight LossGastroduodenal Dis NosWeight LossAbdominal Pain, Unspecified 3 Dominic Nayak. [address] [facility], [address], [place], [id number] , [place]. [phone] Referring Provider: Deepthi GUERRERO, [address] [place] [address], [address]. tel:[phone] Offic/outpt E&m New Mod-hi [facility], [address] [address], [place], [id number], [place] tel:[phone] [facility] Abdominal pain (chief complaint) Vomiting (chief complaint) Abd Pain GeneralizedNausea With Vomiting 3 Ole Soto. [address] [facility], [address], [facility] [place], [id number] , [place]. [phone] Referring Provider: Brina Wilkins, [address] [place], [address]. tel:[phone] Family History Family Member Type Diagnosis Age [...] Disease Payers Payer name Insurance type Covered green party ID Authoriza tion(s) No Information Social [...]
--- OUTSIDE RECORDS SUMMARY | 2024-12-22 19:11 | XMS_ITS | Clinical Summary ---
Author Organization [facility] Address [address], [place] [address] Care Team Providers Care Certified Ophthalmic Technician Name Role Phone Deepthi Mc PA-C Primary Care Provider [phone] Source Comments You are receiving this document as you are listed as the primary care provider,follow-up provider, or the patient has been referred to you for consultation.This is in compliance with the Medicare and[facility] State Health Systemcaid EHR Incentive Program,which states Providers who transition their patient to another setting of careor provider of care or refers their patient to another provider of care shouldprovide summary care record for each transition of care or referral. [facility] Allergies No known active allergies [...] history of withdrawal seizures or withdrawal complications. [place] admission on 03/26/20 for alcohol withdrawal and discharged on 03/28/20. Patient is interested in quitting. Has previously tried clonidine and naltrexone. Patient with history of alcohol abuse. No history of withdrawal seizures or withdrawal complications. [place] admission on 03/26/20 for alcohol withdrawal and discharged on 03/28/20. Patient is interested in quitting. Has previously tried clonidine and naltrexone. Persistent sleep disorder 10/17/2016 Insomnia 09/19/2016 Cyclical vomiting 04/04/2016 Social anxiety disorder 02/26/2016 PTSD (post-traumatic stress disorder) 05/16/2014 Generalized anxiety disorder 12/03/2013 Overview (12/26/2020): Under the care of Dr. Rafat Falcon for mental health care. [facility] . Initial intake 12/10/12 Previous Medication [...] ER visit for cyclic vomiting; hospitalization at [facility] 05/03 (72 hr hold); 12/01 at [facility] History of Suicide Attempts: no Under the care of Dr. Rafat Falcon for mental health care. [facility] . Initial intake 12/10/12 Previous Medication [...] ER visit for cyclic vomiting; hospitalization at [facility] 05/03 (72 hr hold); 12/01 at [facility] History of Suicide Attempts: no Under the care of Dr. Rafat Falcon for mental health care. [facility] . Initial intake 12/10/12 Previous Medication [...] ER visit for cyclic vomiting; hospitalization at [facility] 05/03 (72 hr hold); 12/01 at [facility] History of Suicide Attempts: no Asthma [...] Comments Blood Pressure 165/84 08/11/2021 5:23 PM STOCK REPLENISHER Pulse 77 08/11/2021 5:23 PM STOCK REPLENISHER Temperature 36.4 C (97.5 F) 08/11/2021 5:23 PM STOCK REPLENISHER Respiratory Rate 20 08/11/2021 5:23 PM STOCK REPLENISHER Oxygen Saturation 100% 08/11/2021 5:23 PM STOCK REPLENISHER Inhaled Oxygen Concentration - - Weight 104.3 kg (230 lb) 08/11/2021 5:26 PM STOCK REPLENISHER Height 182.9 cm (6') 08/11/2021 5:26 PM STOCK REPLENISHER Body Mass Index 31.19 08/11/2021 5:26 PM STOCK REPLENISHER Plan of Treatment Health Maintenance Due Date [...] patient's age to complete this topic Insurance [facility] PMAP Care Teams Certified Ophthalmic Technician Relationship Specialty Start Date End Date Deepthi Mc PA-C [address] [facility] [facility] [place] [id number] PCP - General Physician Binder Chainstitch 08/15/24
--- OUTSIDE RECORDS SUMMARY | 2024-12-22 19:11 | XMS_ITS | Clinical Summary ---
Author Organization [facility] Address [address] [place] [address] Care Team Providers Care Transit Driver Name Role Phone Elsewhere, Pcp Primary Care Provider Unavailabl e Source Comments Patient records contain information from all sites at [facility]. For routine questions regarding patient records, call [phone] during business hours, M-F 8:00 AM - 5:00 PM Central Time. Record requests for emergency care only can be directed to [phone] at any time.[facility] [...] history of withdrawal seizures or withdrawal complications. [place] admission on 03/26/20 for alcohol withdrawal and discharged on 03/28/20. Patient is interested in quitting. Has previously tried clonidine and naltrexone. Insomnia 09/19/2016 Cyclical Vomiting Syndrome Unrelated To Migraine 04/04/2016 Depressive Disorder 05/16/2014 Anxiety Generalized Disorder 12/03/2013 Overview (03/26/2020): Under the care of Dr. Rafat Falcon for mental health care. [facility] . Initial intake 12/10/12 Previous [...] visit for cyclic vomiting; hospitalization at [facility] 05/03 (72 hr hold); 12/01 at [facility] History of Suicide Attempts: no Asthma 12/11/2007 Overview (03/27/2020): Patient with childhood asthma, not currently requiring any inhalers or medication. Resolved Problems Problem Noted Date Diagnosed Date Resolved Date Alcohol Withdrawal Syndrome 11/13/2023 11/16/2023 Alcohol Withdrawal Syndrome 03/26/2020 07/15/2020 Acidosis Metabolic Anion Gap 03/26/2020 03/27/2020 Encounters Date Type Department Care Team Description 10/08/2024 4:05 PM CDT - 10/08/2024 11:[address] [facility] Emergency Department [address] [place] [id number] Albert Pitts M.D., M.H.P.E. Nausea And [...] e alcohol) 750 ml straight Vodka Daily [employer] Utilities Answer Date Recorded In the past 12 months has e [employer], oil, or water [employer] threatened to shut off services in your [...] your living situation today? I have a [facility] place to live 03/26/2024 Sex and Gender Information Value Date Recorded Sex Assigned at Not on file Legal Sex Male 5:32 PM [employer] Gender Identity Not on file Sexual Orientation [...] P.A.-C. LAB BLOOD NON ADD-ON Final Result [facility] [address] [place] [address], [place] DTL [facility] [address] [place] [address] * (ABNORMAL) Hepatic Function Panel (10/08/2024 4:52 [...] P.A.-C. LAB BLOOD [place] [address], [address] [address] * (ABNORMAL) Morphology Eval (special smear) (10/08/2024 [...] Reviewed by: Lucy 10/08/2024 6:02 PM CDT [facility] Blood 10/08/2024 4:52 PM CDT 10/08/2024 5:09 PM CDT Christian Landa P.A.-C. LAB BLOOD ADD-ON Final Res ult [facility] [address] [place] [address], [facility] [address] [place] [address] * (ABNORMAL) CBC with Differential, Blood (10/08/2024 [...] - 6.45 x10(9)/L 10/08/2024 6:01 PM CDT [facility] Comment:Auto-diff results no t valid. See manual differential. Blood (Blood, Venous) 10/08/2024 4:52 PM CDT 10/08/2024 5:09 PM CDT Christian Landa P.A.-C. LAB BLOOD ADD-ON Final Res ult Performing Organization Address City/[facility]/ZIP Co de Phone Number [facility] [address] [place] [address], [facility] [address] [place], [place] [id number] [place] [address] [address] [place] [address] * Magnesium (10/08/2024 4:52 PM CDT) Magnesium, P 2.3 1.7 - 2.3 mg/dL 10/08/2024 5:31 PM CDT [facility] Blood (Blood, Venous) 10/08/2024 4:52 PM CDT 10/08/2024 5:10 PM CDT Christian Landa P.A.-C. LAB BLOOD ADD-ON Final Res ult Performing Organization Address [facility] Co de Phone Number [facility] [address] [place], [place] [phone] [place] [address] [address] [place] [address] * (ABNORMAL) Lipase (10/08/2024 4:52 PM CDT) Lipase, S 92(H) 13 - 60 U/L 10/08/2024 5: 55 PM CDT DTL Blood (Blood, Venous) 10/08/2024 4:52 PM CDT 10/08/2024 5:35 PM CDT Christian Landa P.A.-C. LAB BLOOD ADD-ON Final Res ult [facility] [address] [place] [address], [facility] DTL [facility] [address] [place] [address] * (ABNORMAL) Basic Metabolic Panel (10/08/2024 4:52 [...] P.A.-C. LAB BLOOD ADD-ON Final Res ult [facility] [address] [place] [address], [facility] [address] [place] [address] * ECG 12 Lead (10/08/2024 4:22 PM CDT) Ventricular Rate ECG/Min 99 BPM MUSE IA Interval 138 ms MUSE QRSD Interval 86 ms MUSE QT Interval 374 ms MUSE QTC Interval 479 ms MUSE P [place] 62 degrees MUSE R [place] 60 degrees MUSE T Wave [place] 43 degrees MUSE 10/08/2024 4:22 PM CDT [...] MUSE NA from Last 3 Months Insurance [facility] Advance Directives For more information, please contact: [phone] * Full Code (Latest Code Status on [...] Due to: Not medically appropriate Care Teams Transit Driver Relationship Specialty Start Date End Date Elsewhere, Pcp PCP - General Internal Medicine 03/26/24
--- OUTSIDE RECORDS SUMMARY | 2024-12-22 19:11 | XMS_ITS | Clinical Summary ---
Author Organization [facility] Address [address] [place] [address] Care Team Providers Care Pilot Steam Yacht Name Role Phone Jesusita Deepthi Wilkins Primary Care Provider Allergies Active Allergy Reactions [...] history of withdrawal seizures or withdrawal complications. [place] admission on 03/26/20 for alcohol withdrawal and discharged on 03/28/20. Patient is interested in quitting. Has previously tried clonidine and naltrexone. Patient with history of alcohol abuse. No history of withdrawal seizures or withdrawal complications. [place] admission on 03/26/20 for alcohol withdrawal and discharged on 03/28/20. Patient is interested in quitting. Has previously tried clonidine and naltrexone. Patient with history of alcohol abuse. No history of withdrawal seizures or withdrawal complications. [place] admission on 03/26/20 for alcohol withdrawal and discharged on 03/28/20. Patient is interested in quitting. Has previously tried clonidine and naltrexone. Cyclical vomiting 04/04/2016 Social anxiety disorder 02/26/2016 PTSD (post-traumatic stress disorder) 05/16/2014 Overview (07/15/2021): Under the care of Dr. Rafat Falcon for mental health care. [facility] . Initial intake 12/10/12 [...] Services 05/03 (72 hr hold); 12/01 at [facility] History of Suicide Attempts: no Under the care of Dr. Rafat Falcon for mental health care. [facility] . Initial intake 12/10/12 [...] Services 05/03 (72 hr hold); 12/01 at [facility] History of Suicide Attempts: no Under the care of Dr. Rafat Falcon for mental health care. [facility] . Initial intake 12/10/12 [...] Services 05/03 (72 hr hold); 12/01 at [facility] History of Suicide Attempts: no Under the care of Dr. Rafat Falcon for mental health care. [facility] . Initial intake 12/10/12 [...] Services 05/03 (72 hr hold); 12/01 at [facility] History of Suicide Attempts: no Under the care of Dr. Rafat Falcon for mental health care. [facility] . Initial intake 12/10/12 [...] Services 05/03 (72 hr hold); 12/01 at [facility] History of Suicide Attempts: no Under the care of Dr. Rafat Falcon for mental health care. [facility] . Initial intake 12/10/12 [...] Services 05/03 (72 hr hold); 12/01 at [facility] History of Suicide Attempts: no Under the care of Dr. Rafat Falcon for mental health care. [facility] . Initial intake 12/10/12 [...] Services 05/03 (72 hr hold); 12/01 at [facility] History of Suicide Attempts: no Cannabis [...] Comments Blood Pressure 122/60 07/13/2024 6:16 AM ASSIGNMENT AGENT Pulse 117 07/12/2024 10:01 PM ASSIGNMENT AGENT Temperature 36.7 C (98.1 F) 07/12/2024 10:01 PM ASSIGNMENT AGENT Respiratory Rate 30 07/12/2024 10:01 PM ASSIGNMENT AGENT Oxygen Saturation 100% 07/12/2024 10:01 PM ASSIGNMENT AGENT Inhaled Oxygen Concentration - - Weight 98.9 kg (218 lb) 07/12/2024 10:01 PM ASSIGNMENT AGENT Height 182.9 cm (6') 07/11/2024 3:12 PM ASSIGNMENT AGENT Body Mass Index 29.57 07/11/2024 3:12 PM ASSIGNMENT AGENT Plan of Treatment Health Maintenance Due Date Last Done Comments ANNUAL REVIEW OF HM ORDERS 1995 ASTHMA ACTION PLAN 1995 ASTHMA CONTROL TEST 1995 DEPRESSION ACTION PLAN 1995 PHQ-9 1995 YEARLY PREVENTIVE VISIT 10/02/1998 HEPATITIS C SCREENING 10/02/2013 PNEUMOCOCCAL VACCINE: PEDIATRICS (0 to 5 YEARS) AND AT-RISK PATIENTS (6 to 49 YEARS) (1 of 2 - PCV) 10/02/2014 COVID-19 VACCINE (4 - season) 2024 11/28/2021, 11/29/2020, 11/08/2020 INFLUENZA VACCINE (Season Ended) 2025 05/17/2022, 07/07/2020 BMP 07/13/2025 07/13/2024, 06/21, 06/27/2024, Additional history exists ADVANCE CARE PLANNING 07/12/2029 07/12/2024, 024 DTAP/TDAP/TD VACCINE (7 - Td or Tdap) 03/20/2030 03/20/2020, 03/20/2020, 01/27/2008, Additional history exists ZOSTER VACCINE (1 of 2) 10/02/2045 HEPATITIS B VACCINE Completed 08/16/1996, 08/16/1996, 04/02/1996, Additional history exists HIV SCREENING Completed 10/15/2013 HPV VACCINE Aged Out No longer eligi ble based on patient's age to complete this topic MENINGITIS VACCINE Aged Out No longer eligible based on patient's age to complete this topic Procedures Procedure Name Priority Date/Time Associated Diagnosis Comments BASIC METABOLIC PANEL STAT 07/13/2024 1:19 AM ASSIGNMENT AGENT from Last 3 Months or Most Recently Relevant to Health Maintenance Results * (ABNORMAL) Basic metabolic panel (07/13/2024 1:19 AM ASSIGNMENT AGENT) Sodium 127(L) 135 - 145 mmol/L 07/13/2024 3:15 AM ASSIGNMENT AGENT [facility] Potassium 4.4 3.4 - 5.3 mmol/L 07/13/2024 3:15 AM ASSIGNMENT AGENT [facility] Chloride 91(L) 98 - 107 mmol/L 07/13/2024 3:15 AM ASSIGNMENT AGENT [facility] Carbon Dioxide (CO2) 23 22 - 29 mmol/L 07/13/2024 3:15 AM [facility] Anion Gap 13 7 - 15 mmol/L 07/13/2024 3:15 AM [facility] Urea Nitrogen 22.0(H) 6.0 - 20.0 mg/dL 07/13/2024 3:15 AM [facility] Creatinine 0.92 0.67 - 1.17 mg/dL 07/13/2024 3:15 AM [facility] GFR Estimate >90 >60 mL/min/1.7 3m2 07/13/2024 3:15 AM [facility] Comment:eGFR calculated usin 2020 CKD-EPI equation. Calcium 9.6 8.8 - 10.4 mg/dL 07/13/2024 3:15 AM [facility] Comment:Reference intervals for this test were updated on 02/03/2024 to reflect our healthy population more accurately. There may be differences in the flagging of prior results with similar values performed with this method. Those prior results can be interpreted in the context of the updated reference intervals. Glucose 91 70 - 99 mg/dL 07/13/2024 3:15 AM [facility] Blood BLOOD SPECIMEN / Unknown Venipuncture / Unknown 07/13/2024 1:19 AM ASSIGNMENT AGENT 07/13/2024 1:[address] [facility] us Jack Cornejo MD LAB - BLOOD ORDERABLES Final Res ult [facility] 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
--- OUTSIDE RECORDS SUMMARY | 2024-12-22 19:11 | XMS_ITS ---
Author Organization Unknown Address [address] [place], [place] [id number] Phone Care Team Providers Care Health Practice Manager Name Role Phone CLAIRE TEJADA Attending Unavailable [...] Code Sys tem Cyclical vomiting syndrome 10/28/2023 [id number] NOMED-CT Personal Care Team Section
--- OUTSIDE RECORDS SUMMARY | 2024-12-22 19:12 | XMS_ITS | Clinical Summary ---
Author Organization [facility] Address [address] [place] [address] Care Team Providers Care Mail Courier Name Role Phone Deepthi Mc Primary Care [...] if needed. Active cloNIDine 0.1 mg/24 hr ([id number]) 0.1 mg/24 hr patchIndications:A nxiety,ETOH abuse APPLY [...] and Noon. 60 Tablet 08/09/19 25 Active traZODone (DESYREL) 50 mg tabletIndications: Insomnia, idiopathic TAKE 1/2 TABLET BY MOUTH AT BEDTIME NEEDED 45 Tablet 5 08/23/19 25 Active fluticasone (50 mcg per actuation) nasal solution (FLONASE)Indicatio ns:Recurrent acute suppurative otitis media without spontaneous rupture of left tympanic membrane,ETD (Eustachian tube dysfunction), bilateral Inhale 2 Sprays in both nostrils once daily. 16 g 3 09/01/19 25 Active DULoxetine (CYMBALTA) 20 mg Delayed-release capsuleIndications :Anxiety Take 1 Capsule (20 mg) by mouth once daily. 90 Capsule 09/06/19 25 Active ramelteon 8 mg tabletIndications: Insomnia, [...] daily. 90 Tablet 3 11/02/19 25 Active gabapentin 600 mg tabletIndications: Alcohol use disorder Take 300 mg in the am, 300 mg mid day and 600 mg in the evening. 120 Tablet 5 11/30/19 25 Active hydrOXYzine HCL 25 mg tabletIndications: Anxiety TAKE 1 TO 2 TABLETS(25 TO 50 MG) BY MOUTH EVERY 6 HOURS NEEDED FOR ANXIETY 120 Tablet 5 11/30/19 25 Active LORazepam 0.5 mg tabIndications:Anx iety Take 1 Tablet (0.5 mg) by mouth 2 times daily if needed for Anxiety. 20 Tablet 11/30/19 25 Active ondansetron 4 mg disintegrating tabletIndications: Nausea and vomiting, unspecified vomiting type DISSOLVE 1 TABLET ON THE TONGUE EVERY 8 HOURS NEEDED FOR NAUSEA OR VOMITING 60 Tablet 12/23/19 25 Active LORazepam 1 mg tabletIndications: Anxiety Take 1 Tablet (1 mg) by mouth at bedtime if needed for Anxiety. 10 Tablet 12/23/19 25 Active prochlorperazine 25 mg suppositoryIndicat ions:Nausea and vomiting, unspecified vomiting type UNWRAP AND INSERT 1 SUPPOSITORY (25 MG) RECTALLY EVERY 12 HOURS NEEDED FOR NAUSEA OR VOMITING 24 Suppository 3 12/23/19 25 Active hydrOXYzine HCL (ATARAX) 25 mg tabletIndications: Anxiety TAKE 1 TO 2 TABLETS(25 TO 50 MG) BY MOUTH EVERY 6 HOURS NEEDED FOR ANXIETY 120 Tablet 5 08/23/19 25 025 Discontinu ed(Reorder (E-cancel not sent)) gabapentin (NEURONTIN) 600 mg tabletIndications: Alcohol use disorder Take 300 mg in the am, 300 mg mid day and 600 mg in the evening. 120 Tablet 5 09/06/19 25 025 Discontinu ed(Reorder (E-cancel not sent)) prochlorperazine (COMPAZINE) 25 mg suppositoryIndicat ions:Nausea and vomiting, unspecified vomiting type UNWRAP AND INSERT 1 SUPPOSITORY (25 MG) RECTALLY EVERY 12 HOURS NEEDED FOR NAUSEA OR VOMITING 24 Suppository 3 09/23/19 25 025 Discontinu ed(Reorder (E-cancel not sent)) ondansetron (ZOFRAN ODT) 4 mg disintegrating tabletIndications: Nausea and vomiting, unspecified vomiting type DISSOLVE 1 TABLET ON THE TONGUE EVERY 8 HOURS NEEDED FOR NAUSEA OR VOMITING 60 Tablet 09/23/19 25 025 Discontinu ed(Reorder (E-cancel not sent)) LORazepam 1 mg tabletIndications: Anxiety Take 1 Tablet (1 mg) by mouth at bedtime if needed for Anxiety. 10 Tablet 09/28/19 25 025 Discontinu ed(Reorder (E-cancel not sent)) dextroamphetamine- amphetamine (AdderalL) 10 mg tabletIndications: Attention deficit hyperactivity disorder (ADHD), combined type Take 1 Tablet (10 mg) by mouth two times daily. 60 Tablet 10/26/19 25 025 LORazepam 0.5 mg tabIndications:Anx iety Take 1 Tablet (0.5 mg) by mouth 2 times daily if needed for Anxiety. 20 Tablet 11/09/19 25 025 Discontinu ed(Reorder (E-cancel not sent)) Active Problems Problem Noted [...] Dr. Rafat Falcon for mental health care. [facility] . Initial intake 12/10/12 Previous Medication Trials: [...] ER visit for cyclic vomiting; hospitalization at [facility] 05/03 (72 hr hold); 12/01 at [facility] History of Suicide Attempts: no Cannabis [...] Encounters Date Type Department Care Team Description 11/29/2024 2:40 PM CDT Office Visit [facility] [address] [place] [address] Deepthi Mc PA Occ Med (R thumb laceration DOI 11/20/2024, needs return to work note, suture removal) 11/29/2024 Orders Only [facility] [address] [place] [address] Deepthi Mc PA <No scans attached> 11/29/2024 Travel 11/16/2024 2:00 PM CDT Office Visit [facility] [address] [place] [address] David Bryan, [facility] Visit 11/16/2024 Travel 11/08/2024 2:40 PM CDT Office Visit [facility] [address] [facility] [place] [address] Deepthi Mc PA Follow Up; Concerns (Was exposed to strep from niece, throat is just scratchy, did start taking amox that he had at home) 11/08/2024 Travel 11/04/2024 Telephone [facility] [address] [facility] [place] [address] Deepthi Mc PA FYI (News regarding patient) 10/25/2024 2:40 PM CDT Office Visit [facility] [address] [facility] [place] [address] Deepthi Mc PA Medication Management 10/25/2024 Travel 10/08/2024 Telephone [facility] [address] [place] [address] Deepthi Mc PA Questions 09/27/2024 2:00 PM CDT Office Visit [facility] [address] [facility] [place] [address] Deepthi Mc PA Medication Management (Pristiq & Cymbalta - is done with the pristiq but has not started the cymbalta yet) 09/27/2024 Travel 09/22/2024 Refill [facility] [address] [facility] [place] [address] Deepthi Mc PA Refill Request (Refill request ) from Last 3 Months Immunizations Immunization [...] Date Smoking Tobacco: Every Day Cigarettes 0.3 6.1 Started: 11/09/2018 Smokeless Tobacco: Never Tobacco Cessation:Ready [...] on file Legal 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 Gender Identity Not on file Sexual Orientation Not on file 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 Not on file Not on file 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 Not on file Not on file Not on file Obstetrics History Last Filed Vital Signs Vital Sign Reading Time Taken Comments Blood Pressure 142/90 11/29/2024 3:05 PM CDT Pulse 112 11/29/2024 3:05 PM CDT Temperature 36.8 C (98.2 F) 11/08/2024 2:46 PM CDT Respiratory Rate 18 12/30/2020 8:55 PM CDT Oxygen Saturation 100% 02/13/2024 11:31 AM CDT Inhaled Oxygen Concentration - - Weight 111.6 kg (246 lb) 11/29/2024 3:05 PM CDT Height 182 cm (5' 11.65) 11/01/2022 2:24 PM CDT Body Mass Index 33.69 11/01/2022 2:24 PM CDT Plan of Treatment Health Maintenance [...] Additional history exists Tetanus booster 03/20/2030 03/20/2020, 08/07/2019, 01/27/2008 Hepatitis B series for 19+ Completed 08/16, 08/16/1996, 04/02/1996, Additional history exists Tdap Completed 01/27/2008 HIV for age 15-65 Completed 10/15/2013 Procedures Procedure Name Priority Date/Time Associated Diagnosis Comments ANTI HIV 1/2 Routine 10/15/2013 9:28 AM CDT Diarrhea GERD (gastroesophageal reflux disease) Weight loss from Last 3 Months or Most Recently Relevant to Health Maintenance Results * ANTI HIV 1/2 (10/15/2013 9:28 AM CDT) ANTI HIV 1/2 Non-reacti ve [facility] Blood specimen (specimen) BLOOD SPECIMEN / Unknown 10/15/2013 9:28 AM CDT 10/15/2013 9:13 AM CDT us Luis Jarrett MD SEND OUTS Final Res ult [facility] INTERNAL ZIP [address] [place] [id number] from Last 3 Months or Most Recently Relevant to Health Maintenance Insurance [facility] Advance Directives * Full Code (Latest Code Status on File) Date Activated Date Inactivated Comments 05/15/2014 4:32 PM 05/18/2014 8:52 PM * Full Code Date Activated Date Inactivated Comments 05/02/2014 7:01 PM 05/07/2014 1:56 PM Care Teams Mail Courier Relationship Specialty Start Date End Date Deepthi [place] [place] [address] PCP - General Family Practice 03/04/11
[2024-12-22 19:17] VITALS: BP 165/75; PULSE 95; RESP 16; TEMP 37.1; O2SAT 100; BMI 30.7
--- NOTE | 2024-12-22 20:23 | ED.GENADULT ---
HPI - General Adult General Chief complaint: Nausea/Vomiting Stated complaint: vomiting, tremors Time Seen by Provider: 12/22/24 20:13 History of Present Illness HPI narrative: Pt states he has a protocol here for IM injections and would just like his meds, not a room. He has had cyclic vomitting since yesterday. Pt is in and out of the hospital bathroom soaking his head in cold water. 29-year-old man presenting to the emergency department with recurrent cyclic vomiting. He is not having abdominal pain. Admits to drinking more alcohol again lately. No fever. No hematemesis. Related Data Home Medications ?Medication ?Instructions ?Recorded ?Confirmed desvenlafaxine succinate 50 mg 50 mg PO DAILY 02/13/22 12/04/24 tablet,extended release 24 hr hydroxyzine HCl 25 mg tablet 25 - 50 mg PO Q6H PRN 02/13/22 12/04/24 lisinopril 10 mg tablet 10 mg PO DAILY 02/13/22 12/04/24 lorazepam 0.5 mg tablet 0.5 mg PO DAILY PRN 02/13/22 12/04/24 ondansetron 4 mg disintegrating 4 mg PO Q8H PRN 02/13/22 12/04/24 tablet prochlorperazine 25 mg rectal 25 mg FL Q12H PRN 02/13/22 12/04/24 suppository trazodone 50 mg tablet 25 mg PO HS PRN 08/14/22 12/04/24 clonidine 0.1 mg/24 hr weekly 1 patch topical .weekly 05/12/24 12/04/24 transdermal patch dextroamphetamine-amphetamine 10 5 - 10 mg PO DAILY 05/12/24 12/04/24 mg tablet (Adderall) dextroamphetamine-amphetamine ER 20 mg PO DAILY 05/12/24 12/04/24 20 mg 24hr capsule,extend release (Adderall XR) gabapentin 600 mg tablet 600 mg PO HS 05/12/24 12/04/24 melatonin 3 mg tablet 3 mg PO HS PRN 05/12/24 12/04/24 naltrexone 50 mg tablet 50 mg PO DAILY 05/12/24 12/04/24 Previous Rx's ?Medication ?Instructions ?Recorded potassium bicarbonate-citric acid 25 meq PO BID #4 ea 05/13/24 25 mEq effervescent tablet sodium chloride 1,000 mg soluble 1,000 mg PO TID #10 tabs 05/13/24 tablet promethazine 50 mg rectal 50 mg FL Q6H PRN #12 ea 09/21/24 suppository Allergies Allergy/AdvReac Type Severity Reaction Status Date / Time haloperidol (From Haldol) Allergy Verified 12/04/24 15:46 Review of Systems Status of ROS: Reports: 6 or more systems reviewed and unremarkable except as noted in History and below PFSH PFS Medical History Cannabinoid hyperemesis syndrome ?R11.2 - Nausea with vomiting, unspecified (ICD-10) ?F12.90 - Cannabis use, unspecified, uncomplicated (ICD-10) Cannabinosis ?J66.2 - Cannabinosis (ICD-10) Severe anxiety with panic ?F41.0 - Panic disorder [episodic paroxysmal anxiety] (ICD-10) Normal colonoscopy Normal esophagogastroduodenoscopy (EGD) ?Z01.89 - Encounter for other specified special examinations (ICD-10) Cyclical vomiting ?R11.15 - Cyclical vomiting syndrome unrelated to migraine (ICD-10) Anxiety ?F41.9 - Anxiety disorder, unspecified (ICD-10) Substance abuse ?F19.10 - Other psychoactive substance abuse, uncomplicated (ICD-10) Surgical History History of myringotomy ?Z98.890 - Other specified postprocedural states (ICD-10) Family History Father Alcohol dependence Drug dependence Suicidal behavior with attempted self-injury Social History Narrative: Patient lives with his mother and stepfather; 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 His mother is healthcare power of senior trial attorney and code status is full. History of alcohol and cannabis abuse. Current cigarette smoking. What is your current living situation?: declined to answer Problems where you live: declined to answer In the past 12 months, utilities in danger of being shut off: declined to answer In past 12 months, lack of transportation kept you from medical appts, meetings, work, or getting things needed for daily living: declined to answer In the past 12 mos, have been you worried that your food would run out before you had money to buy more?: declined to answer In the past 12 mos, the food you bought just didn't last and you didn't have money to buy more?: declined to answer Highest level of school completed/degree received: Associate degree: occupational, technical, vocational program Smoking Status: Current every day smoker What tobacco products do you use: cigarettes Smoking packs per day: 0.5 Smoking cigarettes per day: 10.0 Years smoked: 10 Smoking pack-years: 5.00 Smoking quit date/years: >15 years ago Do you use any of these nicotine containing products: E-Cigarettes and Vaping Products Second hand tobacco smoke exposure: No How often do you have a drink containing alcohol: 4 or more times a week Alcohol type: hard liquor How many standard drinks containing alcohol do you have on a typical day: 5 or 6 How often do you have six or more drinks on one occasion: Daily or almost daily AUDIT-C Alcohol total score: 10 Non-prescribed substance use: marijuana (any form) Caffeine: Yes How often does anyone, including family, friends and others, physically hurt you: decline to answer How often does anyone, including family, friends and others, insult or talk down to you: decline to answer How often does anyone, including family, friends and others, threaten you with harm: decline to answer How often does anyone, including family, friends and others, scream or curse at you: decline to answer service: No Health Related Social Needs: unsheltered homelessness (Z59.02) Exam Narrative: Exam Narrative: Is pleasant. Distracted. Diaphoretic. Weight looks to be up a little bit. Breathing easily. Tachycardic. Restless. Emesis bag in hand. Has been seen to be vomiting. Gets up to drink water from the sink in effort I think to vomit. Const: Vital Signs, click to edit/add: Vital Signs - 24 hr 12/22/24 19:17 Temperature 98.7 F Pulse Rate [Right Pulse Oximeter] 95 Respiratory Rate 16 Blood Pressure [Ri ght Upper Arm] 165/75 H Pulse Oximetry 100 Oxygen Delivery Me thod Room Air Documenting provider has reviewed patient's vital signs: yes Course Vital Signs Vital signs: Initial Vital Signs Temperature 98.7 F 12/22/24 19:17 Temperature Source Temporal Artery Scan 12/22/24 19:17 Pulse Rate 95 12/22/24 19:17 Pulse Rhythm Regular 12/22/24 19:17 Pulse Strength 3+ Normal 12/22/24 19:17 Respiratory Rate 16 12/22/24 19:17 Blood Pressure 165/75 H 12/22/24 19:17 Blood Pressure Mean 105 12/22/24 19:17 Blood Pressure Position Sitting 12/22/24 19:17 Pulse Oximetry 100 12/22/24 19:17 Oxygen Delivery Method Room Air 12/22/24 19:17 Vital Signs Temperature 98.7 F 12/22/24 19:17 Pulse Rate 95 12/22/24 19:17 Respiratory Rate 16 12/22/24 19:17 Blood Pressure 165/75 H 12/22/24 19:17 Pulse Oximetry 100 12/22/24 19:17 Oxygen Delivery Method Room Air 12/22/24 19:17 Temperature 98.7 F 12/22/24 19:17 Pulse Rate 95 12/22/24 19:17 Respiratory Rate 16 12/22/24 19:17 Blood Pressure 165/75 H 12/22/24 19:17 Pulse Oximetry 100 12/22/24 19:17 Oxygen Delivery Method Room Air 12/22/24 19:17 Medications Administered Medications: Discontinued Medications Generic Name Dose Route Start Last Admin Trade Name Freq PRN Reason Stop Dose Admin Diazepam 5 mg 12/22/24 20:12 12/22/24 20:38 Diazepam 5 Mg/Ml Inj IM 12/22/24 20:13 5 mg ONCE ONE Administration Diphenhydramine HCl 50 mg 12/22/24 20:12 12/22/24 20:37 Diphenhydramine 50 Mg/Ml Inj IM 12/22/24 20:13 50 mg ONCE ONE Administration Ketorolac Tromethamine 30 mg 12/22/24 20:12 12/22/24 20:37 Ketorolac 30 Mg/Ml Inj IM 12/22/24 20:13 30 mg ONCE ONE Administration Ondansetron HCl 4 mg 12/22/24 20:12 12/22/24 20:37 Ondansetron 2 Mg/Ml Inj IM 12/22/24 20:13 4 mg ONCE ONE Administration Medical Decision Making MDM Narrative Medical decision making narrative: Is seen in triage room in a busy emergency department. As requested just to receive his ?usual? IM medications and go home. I do review last visit here which was about 2 weeks ago. Can duplicate these medications. Particular he is asking for some Valium. Injected with Zofran, Valium, diphenhydramine, ketorolac. Here with his mother has usual. 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 Once medications given is asking for Zyprexa get but is encouraged to let these medications that he has received work. Medical Records Medical records reviewed: Yes I reviewed the patient's medical records Discharge Plan Discharge Clinical Impression: Cyclical vomiting, Anxiety, Alcohol abuse Patient Disposition: Home w/ Parent or Adult Condition: Stable Additional Instructions: Best wishes at the [place] and your efforts at sobriety. Hopefully you can get into treatment shortly Prescriptions: No Action lorazepam 0.5 mg tablet 0.5 mg PO DAILY PRN prochlorperazine 25 mg suppository 25 mg FL Q12H PRN lisinopril 10 mg tablet 10 mg PO DAILY hydroxyzine HCl 25 mg tablet 25 - 50 mg PO Q6H PRN ondansetron 4 mg tablet,disintegrating 4 mg PO Q8H PRN Patient Comments: DISSOLVE 1 TABLET ON THE TONGUE EVERY 8 HOURS NEEDED FOR NAUSEA OR VOMITING desvenlafaxine succinate 50 mg tablet extended release 24 hr 50 mg PO DAILY trazodone 50 mg tablet 25 mg PO HS PRN clonidine 0.1 mg/24 hr patch weekly 1 patch topical .weekly melatonin 3 mg tablet 3 mg PO HS PRN dextroamphetamine-amphetamine [Adderall XR] 20 mg capsule,extended release 24hr 20 mg PO DAILY dextroamphetamine-amphetamine [Adderall] 10 mg tablet 5 - 10 mg PO DAILY gabapentin 600 mg tablet 600 mg PO HS naltrexone 50 mg tablet 50 mg PO DAILY sodium chloride 1,000 mg tablet,soluble 1,000 mg PO TID Qty: 10 0RF potassium bicarb-citric acid 25 mEq tablet, effervescent 25 meq PO BID Qty: 4 0RF promethazine 50 mg suppository 50 mg FL Q6H PRNQty: 12 0RF Follow Up/Referrals: McLeran,Deepthi M, PA-C [Primary Care Provider, Family Practice] Stand Alone Forms: [employer] Info Instructions
[2024-12-22] MEDS: KETOROLAC 30 MG/ML inj IM (20:37)
[2024-12-22] MEDS: diphenhydrAMINE 50 MG/ML inj IM (20:37)
[2024-12-22] MEDS: ONDANSETRON 2 MG/ML inj 4 MG IM (20:37)
[2024-12-22] MEDS: diazePAM 5 MG/ML inj IM (20:38)
--- OUTSIDE RECORDS SUMMARY | 2024-12-22 20:41 | XMS_ITS ---
Author Organization Unknown Address [address] [place], [place] [id number] Phone Care Team Providers Care Neurosurgical Nurse Name Role Phone CLAIRE TEJADA Attending Unavailable [...] Code Sys tem Cyclical vomiting syndrome 10/28/2023 [id number] S NOMED-CT Personal Care Team Section
== END 2024-12-22 21:02 | disposition home or self-care (01) ==
LOC: ED 20:38
PROVIDERS: Emergency Provider Family Medicine; PCP Physician Assistant Medical
DX: R11.15 Cyclical vomiting syndrome unrelated to migraine (principal); F41.9 Anxiety disorder, unspecified; F10.10 Alcohol abuse, uncomplicated
CPT/HCPCS: 96372; 99284; J1200; J1885; J2405; J3360

== ENCOUNTER 2024-12-25 22:44 | Outpatient (CLI) | payer BC, SELFPAY | END 2024-12-25 22:45 | disposition home or self-care (01) | PROVIDERS: PCP Physician Assistant Medical; Visit Provider Family Medicine | DX: F10.129 Alcohol abuse with intoxication, unspecified (principal) | CPT/HCPCS: A0425; A0427 ==

== ENCOUNTER 2024-12-25 23:06 | Emergency (ER) | payer BC, SELFPAY ==
--- OUTSIDE RECORDS SUMMARY | 2014-05-02 19:00 | XMS_ITS | Continuity of Care Document ---
Author Organization [facility] Address [address] [address] [place] [address] Phone Care Team Providers Care Commercial Representative Name Role Phone Chris WINTERS, Ahmed Unavailable [...] on Encounter Init Hosp-da E&m Mod Severity [facility], [address] [address], [place], [id number], [place] tel:[phone] [facility] No Information 4 Chris Crawford. [address] [facility], [address], [place], [id number] , [place]. [phone] Referring Provider: Lazaro Bryant MD, [address] [place], [address]. tel:[phone] [facility], [address] [address], [place], [id number], [place] tel:[phone] [facility] Gastroduodenal Dis NosAbdominal Pain, UnspecifiedWeight LossGastroduodenal Dis NosWeight LossAbdominal Pain, Unspecified 3 Dominic Nayak. [address] [facility], [address], [place], [id number] , [place]. [phone] Referring Provider: Deepthi GUERRERO, [address] [place] [address], [address]. tel:[phone] Offic/outpt E&m New Mod-hi [facility], [address] [address], [place], [id number], [place] tel:[phone] [facility] Abdominal pain (chief complaint) Vomiting (chief complaint) Abd Pain GeneralizedNausea With Vomiting 3 Ole Soto. [address] [facility], [address], [facility] [place], [id number] , [place]. [phone] Referring Provider: Brina Wilkins, [address] [place], [address]. tel:[phone] Family History Family Member Type Diagnosis Age [...] Disease Payers Payer name Insurance type Covered alliance party ID Authoriza tion(s) No Information Social History [...]
--- OUTSIDE RECORDS SUMMARY | 2014-05-02 19:00 | XMS_ITS | Continuity of Care Document ---
Author Organization [facility] Address [address] [address] [place] [address] Phone Care Team Providers Care Mold Loft Worker Name Role Phone Chris WINTERS, Ahmed Unavailable [...] on Encounter Init Hosp-da E&m Mod Severity [facility], [address] [address], [place], [id number], [place] tel:[phone] [facility] No Information 4 Chris Crawford. [address] [facility], [address], [place], [id number] , [place]. [phone] Referring Provider: Lazaro Bryant MD, [address] [place], [address]. tel:[phone] [facility], [address] [address], [place], [id number], [place] tel:[phone] [facility] Gastroduodenal Dis NosAbdominal Pain, UnspecifiedWeight LossGastroduodenal Dis NosWeight LossAbdominal Pain, Unspecified 3 Dominic Nayak. [address] [facility], [address], [place], [id number] , [place]. [phone] Referring Provider: Deepthi GUERRERO, [address] [place] [address], [address]. tel:[phone] Offic/outpt E&m New Mod-hi [facility], [address] [address], [place], [id number], [place] [phone] [facility] Abdominal pain (chief complaint) Vomiting (chief complaint) Abd Pain GeneralizedNausea With Vomiting 3 Ole Soto. [address] [facility], [address], [facility] [place], [id number] , [place]. [phone] Referring Provider: Brina Wilkins, [address] [place], [address]. tel:[phone] Family History Family Member Type Diagnosis Age [...] Disease Payers Payer name Insurance type Covered constitution party ID Authoriza tion(s) No Information Social [...]
--- OUTSIDE RECORDS SUMMARY | 2024-12-25 23:08 | XMS_ITS | Clinical Summary ---
Author Organization [facility] Address [address] [place] [address] Care Team Providers Care Benefit Director Name Role Phone Elsewhere, Pcp Primary Care Provider Unavailabl e Source Comments Patient records contain information from all sites at [facility]. For routine questions regarding patient records, call [phone] during business hours, M-F 8:00 AM - 5:00 PM Central Time. Record requests for emergency care only can be directed to [phone] at any time.[facility] Allergies Active Allergy Reactions Criticality Noted [...] history of withdrawal seizures or withdrawal complications. [place] admission on 03/26/20 for alcohol withdrawal and [...] visit for cyclic vomiting; hospitalization at [facility] 05/03 (72 hr hold); 12/01 at [facility] [...] CDT - 10/08/2024 11:18 PM CDT Emergency [facility] Emergency Department [address] [place] [id number] Albert Pitts M.D., M.H.P.E. Nausea And [...] e alcohol) 750 ml straight Vodka Daily [employer] Utilities Answer Date Recorded In the past 12 months has e [employer], oil, or water [employer] threatened to shut off services in your [...] living situation today? 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 LAB BLOOD ADD-[place] [address], [address] [address] * (ABNORMAL) Morphology Eval (special smear) (10/08/2024 [...] P.A.-C. LAB BLOOD ADD-ON Final Res ult [facility] [address] [place] [address], [facility] [address] [place] [address] * (ABNORMAL) CBC with Differential, Blood (10/08/2024 [...] Final Res ult Performing Organization Address City/[facility]/ZIP Co de Phone Number [facility] [address] [place] [address], [facility] [address] [place], [place] [id number] [place] [address] [address] [place] [address] * Magnesium (10/08/2024 4:52 PM CDT) Magnesium, P 2.3 1.7 - 2.3 mg/dL 10/08/2024 5:31 PM CDT [facility] Blood (Blood, Venous) 10/08/2024 4:52 PM CDT 10/08/2024 5:10 PM CDT Christian Landa P.A.-C. LAB BLOOD ADD-ON Final Res ult Performing Organization Address [facility] Co de Phone Number [facility] [address] [place], [place] [id number] [place] [address] [address] [place] [address] * (ABNORMAL) Lipase (10/08/2024 4:52 PM CDT) Lipase, S 92(H) 13 - 60 U/L 10/08/2024 5: 55 PM CDT DTL Blood (Blood, Venous) 10/08/2024 4:52 PM CDT 10/08/2024 5:35 PM CDT Christian Landa P.A.-C. LAB BLOOD ADD-ON Final Res ult [facility] [address] [place] [address], [facility] DTL [facility] [address] [place] [address] * (ABNORMAL) Basic Metabolic Panel (10/08/2024 4:52 [...] P.A.-C. LAB BLOOD ADD-ON Final Res ult [facility] [address] [place] [address], [facility] [address] [place] [address] * ECG 12 Lead (10/08/2024 4:22 PM CDT) Ventricular Rate ECG/Min 99 BPM MUSE [place] Interval 138 ms MUSE QRSD Interval 86 ms MUSE QT Interval 374 ms MUSE QTC Interval 479 ms MUSE P [place] 62 degrees MUSE R [place] 60 degrees MUSE T Wave [place] 43 degrees MUSE 10/08/2024 4:22 PM CDT [...] NA from Last 3 Months Insurance [facility] Advance Directives For more information, please contact: [phone] * Full Code (Latest Code Status on [...] Due to: Not medically appropriate Care Teams Benefit Director Relationship Specialty Start Date End Date Elsewhere, Pcp PCP - General Internal Medicine 03/26/24
--- OUTSIDE RECORDS SUMMARY | 2024-12-25 23:08 | XMS_ITS | Clinical Summary ---
Author Organization [facility] Address [address], [place] [address] Care Team Providers Care Library Associate Name Role Phone Deepthi Mc PA-C Primary Care Provider [phone] Source Comments You are receiving this document as you are listed as the primary care provider,follow-up provider, or the patient has been referred to you for consultation.This is in compliance with the Medicare and[facility] EHR Incentive Program,which states Providers who transition their patient to another setting of careor provider of care or refers their patient to another provider of care shouldprovide summary care record for each transition of care or referral. [facility] Allergies No known active allergies Medications [...] history of withdrawal seizures or withdrawal complications. [place] admission on 03/26/20 for alcohol withdrawal and discharged on 03/28/20. Patient is interested in quitting. Has previously tried clonidine and naltrexone. Patient with history of alcohol abuse. No history of withdrawal seizures or withdrawal complications. [place] admission on 03/26/20 for alcohol withdrawal and discharged on 03/28/20. Patient is interested in quitting. Has previously tried clonidine and naltrexone. Persistent sleep disorder 10/17/2016 Insomnia 09/19/2016 Cyclical vomiting 04/04/2016 Social anxiety disorder 02/26/2016 PTSD (post-traumatic stress disorder) 05/16/2014 Generalized anxiety disorder 12/03/2013 Overview (12/26/2020): Under the care of Dr. Rafat Falcon for mental health care. [facility] . Initial intake 12/10/12 Previous Medication Trials: [...] ER visit for cyclic vomiting; hospitalization at [facility] 05/03 (72 hr hold); 12/01 at [facility] History of Suicide Attempts: no Under the care of Dr. Rafat Falcon for mental health care. [facility] . Initial intake 12/10/12 Previous Medication Trials: [...] ER visit for cyclic vomiting; hospitalization at [facility] 05/03 (72 hr hold); 12/01 at [facility] History of Suicide Attempts: no Under the care of Dr. Rafat Falcon for mental health care. [facility] . Initial intake 12/10/12 Previous Medication Trials: [...] ER visit for cyclic vomiting; hospitalization at [facility] 05/03 (72 hr hold); 12/01 [facility] [...] Comments Blood Pressure 165/84 08/11/2021 5:23 PM CLINICAL ATHLETIC INSTRUCTOR Pulse 77 08/11/2021 5:23 PM CLINICAL ATHLETIC INSTRUCTOR Temperature 36.4 C (97.5 F) 08/11/2021 5:23 PM CLINICAL ATHLETIC INSTRUCTOR Respiratory Rate 20 08/11/2021 5:23 PM CLINICAL ATHLETIC INSTRUCTOR Oxygen Saturation 100% 08/11/2021 5:23 PM CLINICAL ATHLETIC INSTRUCTOR Inhaled Oxygen Concentration - - Weight 104.3 kg (230 lb) 08/11/2021 5:26 PM CLINICAL ATHLETIC INSTRUCTOR Height 182.9 cm (6') 08/11/2021 5:26 PM CLINICAL ATHLETIC INSTRUCTOR Body Mass Index 31.19 08/11/2021 5:26 PM CLINICAL ATHLETIC INSTRUCTOR Plan of Treatment Health Maintenance Due Date [...] patient's age to complete this topic Insurance [facility] PMAP Care Teams Library Associate Relationship Specialty Start Date End Date Deepthi Mc PA-C [address] [facility] [place] [id number] PCP - General Physician Corporate Communications Associate 08/15/24
--- OUTSIDE RECORDS SUMMARY | 2024-12-25 23:08 | XMS_ITS ---
Author Organization Unknown Address [address] [place], [place] [id number] Phone Care Team Providers Care Telesales Manager Name Role Phone CLAIRE TEJADA Attending [...] Code Sys tem Cyclical vomiting syndrome 10/28/2023 [id number] S NOMED-CT Personal Care Team Section
--- OUTSIDE RECORDS SUMMARY | 2024-12-25 23:09 | XMS_ITS | Clinical Summary ---
Author Organization [facility] Address [address] [place] [address] Care Team Providers Care Rug Measurer Name Role Phone Jesusita Deepthi Wilkins Primary Care Provider [phone] Allergies Active Allergy Reactions Criticality Noted Date [...] history of withdrawal seizures or withdrawal complications. [place] admission on 03/26/20 for alcohol withdrawal and discharged on 03/28/20. Patient is interested in quitting. Has previously tried clonidine and naltrexone. Patient with history of alcohol abuse. No history of withdrawal seizures or withdrawal complications. [place] admission on 03/26/20 for alcohol withdrawal and discharged on 03/28/20. Patient is interested in quitting. Has previously tried clonidine and naltrexone. Patient with history of alcohol abuse. No history of withdrawal seizures or withdrawal complications. [place] admission on 03/26/20 for alcohol withdrawal and discharged on 03/28/20. Patient is interested in quitting. Has previously tried clonidine and naltrexone. Cyclical vomiting 04/04/2016 Social anxiety disorder 02/26/2016 PTSD (post-traumatic stress disorder) 05/16/2014 Overview (07/15/2021): Under the care of Dr. Rafat Falcon for mental health care. [facility] . Initial intake 12/10/12 Previous Medication [...] Health 05/03 (72 hr hold); 12/01 at [facility] History of Suicide Attempts: no Under the care of Dr. Rafat Falcon for mental health care. [facility] . Initial intake 12/10/12 Previous Medication [...] Health 05/03 (72 hr hold); 12/01 at [facility] History of Suicide Attempts: no Under the care of Dr. Rafat Falcon for mental health care. [facility] . Initial intake 12/10/12 Previous Medication [...] Health 05/03 (72 hr hold); 12/01 at [facility] History of Suicide Attempts: no Under the care of Dr. Rafat Falcon for mental health care. [facility] . Initial intake 12/10/12 Previous Medication [...] Health 05/03 (72 hr hold); 12/01 at [facility] History of Suicide Attempts: no Under the care of Dr. Rafat Falcon for mental health care. [facility] . Initial intake 12/10/12 Previous Medication [...] Health 05/03 (72 hr hold); 12/01 at [facility] History of Suicide Attempts: no Under the care of Dr. Rafat Falcon for mental health care. [facility] . Initial intake 12/10/12 Previous Medication [...] Health 05/03 (72 hr hold); 12/01 at [facility] History of Suicide Attempts: no Under the care of Dr. Rafat Falcon for mental health care. [facility] . Initial intake 12/10/12 Previous Medication [...] Health 05/03 (72 hr hold); [facility] [...] in an abandoned building, in an overnight assisted, or couch-surfing.) Yes 06/23/2024 Are you worried [...] Comments Blood Pressure 122/60 07/13/2024 6:16 AM FORMING MACHINE TENDER Pulse 117 07/12/2024 10:01 PM FORMING MACHINE TENDER Temperature 36.7 C (98.1 F) 07/12/2024 10:01 PM FORMING MACHINE TENDER Respiratory Rate 30 07/12/2024 10:01 PM FORMING MACHINE TENDER Oxygen Saturation 100% 07/12/2024 10:01 PM FORMING MACHINE TENDER Inhaled Oxygen Concentration - - Weight 98.9 kg (218 lb) 07/12/2024 10:01 PM FORMING MACHINE TENDER Height 182.9 cm (6') 07/11/2024 3:12 PM FORMING MACHINE TENDER Body Mass Index 29.57 07/11/2024 3:12 PM FORMING MACHINE TENDER Plan of Treatment Health Maintenance Due Date [...] BASIC METABOLIC PANEL STAT 07/13/2024 1:19 AM FORMING MACHINE TENDER from Last 3 Months or Most Recently Relevant to Health Maintenance Results * (ABNORMAL) Basic metabolic panel (07/13/2024 1:19 AM FORMING MACHINE TENDER) Sodium 127(L) 135 - 145 mmol/L 07/13/2024 3:15 AM FORMING MACHINE TENDER [facility] Potassium 4.4 3.4 - 5.3 mmol/L 07/13/2024 3:15 AM FORMING MACHINE TENDER [facility] Chloride 91(L) 98 - 107 mmol/L 07/13/2024 3:15 AM FORMING MACHINE TENDER [facility] Carbon Dioxide (CO2) 23 22 - 29 mmol/L 07/13/2024 3:15 AM [facility] Anion Gap 13 7 - 15 mmol/L 07/13/2024 3:15 AM [facility] Urea Nitrogen 22.0(H) 6.0 - 20.0 mg/dL 07/13/2024 3:15 AM [facility] Creatinine 0.92 0.67 - 1.17 mg/dL 07/13/2024 3:15 AM [facility] GFR Estimate >90 >60 mL/min/1.7 3m2 07/13/2024 3:15 AM [facility] Comment:eGFR calculated usin 2020 CKD-EPI equation. Calcium 9.6 8.8 - 10.4 mg/dL 07/13/2024 3:15 AM [facility] Comment:Reference intervals for this test were updated on 02/03/2024 to reflect our healthy population more accurately. There may be differences in the flagging of prior results with similar values performed with this method. Those prior results can be interpreted in the context of the updated reference intervals. Glucose 91 70 - 99 mg/dL 07/13/2024 3:15 AM [facility] Blood BLOOD SPECIMEN / Unknown Venipuncture / Unknown 07/13/2024 1:19 AM FORMING MACHINE TENDER 07/13/2024 1:23 AM RUST us Jack Cornejo MD LAB - BLOOD ORDERABLES Final Res ult [facility] [address] [place] [address], [facility] from Last 3 Months or Most Recently Relevant to Health Maintenance Insurance [facility] Address: [id number] [place] [phone] Advance Directives For more information, please contact: [phone] Documents on File Type Date Recorded Patient Document Control Supervisor Expl anation Advance Directives and Living Will [...] Agents on File Name Relationship Healthcare Agent [facility] p Communication Veronica Maria Luisa Mother First Alternate Health Care Agent Suzette De La Rosa Sister Health Care Agent Larry Sapp Father Second Alternate Health Care Agent Care Teams Rug Measurer Relationship Specialty Start Date End Date Deepthi Mc [address] [place] [address] PCP - General Physician Air Traffic Control Specialist 06/15/23
--- OUTSIDE RECORDS SUMMARY | 2024-12-25 23:09 | XMS_ITS | Clinical Summary ---
Author Organization [facility] Address [address] [place] [address] Care Team Providers Care Design Painter Name Role Phone Deepthi Mc Primary Care [...] if needed. Active cloNIDine 0.1 mg/24 hr ([id number]) 0.1 mg/24 hr patchIndications:A nxiety,ETOH abuse APPLY [...] times daily. 60 Tablet 11/25/19 25 025 LORazepam 0.5 mg tabIndications:Anx iety [...] Dr. Rafat Falcon for mental health care. [facility] . Initial intake 12/10/12 Previous [...] ER visit for cyclic vomiting; hospitalization at [facility] 05/03 (72 hr hold); 12/01 at [facility] History of Suicide Attempts: no Cannabis [...] Description 11/29/2024 2:40 PM CDT Office Visit [facility] [address] [place] [address] Deepthi Mc PA Occ Med (R thumb laceration DOI 11/20/2024, needs return to work note, suture removal) 11/29/2024 Orders Only [facility] [address] [place] [address] Deepthi Mc PA <No scans attached> 11/29/2024 Travel 11/16/2024 2:00 PM CDT Office Visit [facility] [address] [place] [address] David Bryan, [facility] Visit 11/16/2024 Travel 11/08/2024 2:40 PM CDT Office Visit [facility] [address] [place] [address] Deepthi Mc PA Follow Up; Concerns (Was exposed to strep from niece, throat is just scratchy, did start taking amox that he had at home) 11/08/2024 Travel 11/04/2024 Telephone [facility] [address] [place] [address] Deepthi Mc PA FYI (News regarding patient) 10/25/2024 2:40 PM CDT Office Visit [facility] [address] [place] [address] Deepthi Mc PA Medication Management 10/25/2024 Travel 10/08/2024 Telephone [facility] [address] [place] [address] Deepthi Mc PA Questions 09/27/2024 2:00 PM CDT Office Visit [facility] [address] [place], [place] [address] Deepthi Mc PA Medication Management (Pristiq & Cymbalta - is done with the pristiq but has not started the cymbalta yet) 09/27/2024 Travel from Last 3 Months Immunizations Immunization Administration Dates Next Due COVID-19 vaccine ([employer] 30mcg/0.3mL) 12YO+ MINH-SUCROSE PF, MDV 11/28/2021 COVID-19 vaccine ([employer] 30mcg/0.3mL) PF, MDV 11/29/2020,11/08/2020 DTP-HIB 1995 [...] file Legal Sex Male 5:18 AM INSURANCE 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 Gender Identity Not on file Sexual Orientation [...] 11/29/2020, 11/08/2020 Influenza Vaccine (Season Ended) 2025 05/17/20 22, 07/07/2020 Depression screening for age 12+ 11/16/2025 11/16/2024, 09/02/2022, 01/22/2021, Additional history exists Tetanus booster 03/20/2030 03/20/2020, 02/20, 01/27/2008 Hepatitis B series for 19+ Completed [...] AM CDT) ANTI HIV 1/2 Non-reacti ve [facility] Blood specimen (specimen) BLOOD SPECIMEN / Unknown 10/15/2013 9:28 AM CDT 10/15/2013 9:13 AM CDT us Luis Jarrett MD SEND OUTS Final Res ult [facility] INTERNAL ZIP [address] [place] [address] from Last 3 Months or Most Recently Relevant to Health Maintenance Insurance [facility] Advance Directives * Full Code (Latest Code Status on File) Date Activated Date Inactivated Comments 05/15/2014 4:32 PM 05/18/2014 8:52 PM * Full Code Date Activated Date Inactivated Comments 05/02/2014 7:01 PM 05/07/2014 1:56 PM Care Teams Design Painter Relationship Specialty Start Date End Date Deepthi Mc PA [address] [place] [address] PCP - General Family Practice 03/04/11
[2024-12-25 23:10] VITALS: BP 133/91; PULSE 104; RESP 16; TEMP 36.4; O2SAT 94; BMI 31.2
[2024-12-25 23:27] VITALS: O2SAT 94
[2024-12-25 23:29] VITALS: PULSE 107; O2SAT 93
[2024-12-25 23:30] VITALS: PULSE 106; O2SAT 92
--- NOTE | 2024-12-25 23:33 | ED.GENADULT ---
HPI - General Adult General Chief complaint: Alcohol/Intoxication Stated complaint: ETOH Time Seen by Provider: 12/25/24 23:29 History of Present Illness HPI narrative: Patient is a 29 year white male with history of cyclic vomiting syndrome, severe anxiety, polysubstance abuse in the past, pervasive developmental disorder. Presents with drinking alcohol today, mom did not feel safe with him at home. He denies drugs or other [id number] medications today. He has had no fever chills chest pain breathing problem. He feels intoxicated. He has been sedate. He is on multiple medications his chart was reviewed. He denies trauma or injury. Related Data Home Medications ?Medication ?Instructions ?Recorded ?Confirmed desvenlafaxine succinate 50 mg 50 mg PO DAILY 02/13/22 12/04/24 tablet,extended release 24 hr hydroxyzine HCl 25 mg tablet 25 - 50 mg PO Q6H PRN 02/13/22 12/04/24 lisinopril 10 mg tablet 10 mg PO DAILY 02/13/22 12/04/24 lorazepam 0.5 mg tablet 0.5 mg PO DAILY PRN 02/13/22 12/04/24 ondansetron 4 mg disintegrating 4 mg PO Q8H PRN 02/13/22 12/04/24 tablet prochlorperazine 25 mg rectal 25 mg OR Q12H PRN 02/13/22 12/04/24 suppository trazodone 50 mg tablet 25 mg PO HS PRN 08/14/22 12/04/24 clonidine 0.1 mg/24 hr weekly 1 patch topical .weekly 05/12/24 12/04/24 transdermal patch dextroamphetamine-amphetamine 10 5 - 10 mg PO DAILY 05/12/24 12/04/24 mg tablet (Adderall) dextroamphetamine-amphetamine ER 20 mg PO DAILY 05/12/24 12/04/24 20 mg 24hr capsule,extend release (Adderall XR) gabapentin 600 mg tablet 600 mg PO HS 05/12/24 12/04/24 melatonin 3 mg tablet 3 mg PO HS PRN 05/12/24 12/04/24 naltrexone 50 mg tablet 50 mg PO DAILY 05/12/24 12/04/24 Previous Rx's ?Medication ?Instructions ?Recorded potassium bicarbonate-citric acid 25 meq PO BID #4 ea 05/13/24 25 mEq effervescent tablet sodium chloride 1,000 mg soluble 1,000 mg PO TID #10 tabs 05/13/24 tablet promethazine 50 mg rectal 50 mg OR Q6H PRN #12 ea 09/21/24 suppository Allergies Allergy/AdvReac Type Severity Reaction Status Date / Time haloperidol (From Haldol) Allergy Verified 12/04/24 15:46 Review of Systems Status of ROS: Reports: 6 or more systems reviewed and unremarkable except as noted in History and below [facility] Medical History Cannabinoid hyperemesis syndrome ?R11.2 - Nausea with vomiting, unspecified (ICD-10) ?F12.90 - Cannabis use, unspecified, uncomplicated (ICD-10) Cannabinosis ?J66.2 - Cannabinosis (ICD-10) Severe anxiety with panic ?F41.0 - Panic disorder [episodic paroxysmal anxiety] (ICD-10) Normal colonoscopy Normal esophagogastroduodenoscopy (EGD) ?Z01.89 - Encounter for other specified special examinations (ICD-10) Cyclical vomiting ?R11.15 - Cyclical vomiting syndrome unrelated to migraine (ICD-10) Anxiety ?F41.9 - Anxiety disorder, unspecified (ICD-10) Substance abuse ?F19.10 - Other psychoactive substance abuse, uncomplicated (ICD-10) Surgical History History of myringotomy ?Z98.890 - Other specified postprocedural states (ICD-10) Family History Father Alcohol dependence Drug dependence Suicidal behavior with attempted self-injury Social History Narrative: Patient lives with his mother and stepfather; 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 His mother is healthcare power of county attorney and code status is full. History of alcohol and cannabis abuse. Current cigarette smoking. What is your current living situation?: declined to answer Problems where you live: declined to answer In the past 12 months, utilities in danger of being shut off: declined to answer In past 12 months, lack of transportation kept you from medical appts, meetings, work, or getting things needed for daily living: declined to answer In the past 12 mos, have been you worried that your food would run out before you had money to buy more?: declined to answer In the past 12 mos, the food you bought just didn't last and you didn't have money to buy more?: declined to answer Highest level of school completed/degree received: Associate degree: occupational, technical, vocational program Smoking Status: Current every day smoker What tobacco products do you use: cigarettes Smoking packs per day: 0.5 Smoking cigarettes per day: 10.0 Years smoked: 10 Smoking pack-years: 5.00 Smoking quit date/years: >15 years ago Do you use any of these nicotine containing products: E-Cigarettes and Vaping Products Second hand tobacco smoke exposure: No How often do you have a drink containing alcohol: 4 or more times a week Alcohol type: hard liquor How many standard drinks containing alcohol do you have on a typical day: 5 or 6 How often do you have six or more drinks on one occasion: Daily or almost daily AUDIT-C Alcohol total score: 10 Non-prescribed substance use: marijuana (any form) Caffeine: Yes How often does anyone, including family, friends and others, physically hurt you: decline to answer How often does anyone, including family, friends and others, insult or talk down to you: decline to answer How often does anyone, including family, friends and others, threaten you with harm: decline to answer How often does anyone, including family, friends and others, scream or curse at you: decline to answer service: No Health Related Social Needs: unsheltered homelessness (Z59.02) Exam Narrative: Exam Narrative: Objective: Patient's vital signs look unremarkable unremarkable He is smells of alcohol he has slurred speech consistent with alcohol intoxication, he has no focal neurologic findings No facial asymmetry no scleral icterus Mouth is somewhat dry neck is supple chest back abdomen unremarkable he denies tenderness to his abdomen her extremities. Const: Vital Signs, click to edit/add: Vital Signs - 24 hr 12/25/24 23:10 Temperature 97.5 F L Pulse Rate [Left P ulse Oximeter] 104 H Respiratory Rate 16 Blood Pressure [Ri ght Upper Arm] 133/91 H Pulse Oximetry 94 Oxygen Delivery Me thod Room Air Course Vital Signs Vital signs: Initial Vital Signs Temperature 97.5 F L 12/25/24 23:10 Temperature Source Temporal Artery Scan 12/25/24 23:10 Pulse Rate 104 H 12/25/24 23:10 Pulse Rhythm Regular 12/25/24 23:10 Respiratory Rate 16 12/25/24 23:10 Blood Pressure 133/91 H 12/25/24 23:10 Blood Pressure Mean 105 12/25/24 23:10 Blood Pressure Position Semi-Fowlers 12/25/24 23:10 Pulse Oximetry 94 12/25/24 23:10 Oxygen Delivery Method Room Air 12/25/24 23:10 Vital Signs Temperature 97.5 F L 12/25/24 23:10 Pulse Rate 104 H 12/25/24 23:10 Respiratory Rate 16 12/25/24 23:10 Blood Pressure 133/91 H 12/25/24 23:10 Pulse Oximetry 94 12/25/24 23:10 Oxygen Delivery Method Room Air 12/25/24 23:10 Temperature 97.5 F L 12/25/24 23:10 Pulse Rate 96 12/26/24 00:30 Respiratory Rate 16 12/25/24 23:10 Blood Pressure 133/91 H 12/25/24 23:10 Pulse Oximetry 98 12/26/24 00:30 Oxygen Delivery Method Room Air 12/25/24 23:10 Medications Administered Medications: Discontinued Medications Generic Name Dose Route Start Last Admin Trade Name Freq PRN Reason Stop Dose Admin Sodium Chloride 1,000 mls @ 6,000 mls/hr 12/25/24 23:30 12/26/24 00:35 0.9 % Sodium Chloride 1000 Ml IV 12/25/24 23:39 Infused .Q10M JOSE Infusion Potassium Bicarbonate 25 meq 12/26/24 00:05 12/26/24 00:23 Potassium Bicarb 25 Meq Effervescent Tab PO 12/26/24 00:06 25 meq ONCE ONE Administration Medical Decision Making MDM Narrative Medical decision making narrative: [age] year white male with history of cyclic vomiting syndrome with marijuana, and some mental health issues with alcohol intoxication. I think be galaviz to hydrate him check his labs check his alcohol level, disposition possible detox. Verses observation stay in the ED. will discuss with Dr. Kaur will some care at this point. The patient's potassium comes back a little own he will be given some oral potassium bicarbonate. Addendum 12:31 a.m. the patient is up walking to the bathroom he is moving around well. His tox screen is positive for benzodiazepine which she is on lorazepam as needed and marijuana. The patient got IV fluids, his labs show low potassium he was given replacement. I think he is safe to go home with a responsible adult at this point. We have not seen his alcohol level yet but he is clinically not that intoxicated currently given that he is able to walk around talk etc.. If he has responsible adult we allow him to be discharged home if not likely a detox transfer. Lab Data Labs: Lab Results 12/25/24 12/25/24 Range/Units 23:40 23:55 WBC 8.28 (4.50-11.00) K/uL RBC 6.24 H (4.30-5.90) m/uL Hgb 15.3 (13.5-17.5) gm/dL Hct 46.9 (37.0-53.0) % MCV 75 L (80-100) fL MCH 25 L (26-34) pg MCHC 33 (32-36) gm/dL RDW Coeff of Belia 19.2 H (11.5-15.5) % Plt Count 419 (140-440) K/uL Neut % (Auto) 51.6 (42.0-72.0) % Lymph % (Auto) 35.4 (20-44) % [place] % (Auto) 10.9 (0.0-11.0) % Eos % (Auto) 1.3 (0.0-7.0) % Baso % (Auto) 0.4 (0.0-3.0) % Neut # (Auto) 4.28 (1.7-7.0) K/uL Lymph # (Auto) 2.93 H (0.90-2.90) K/uL [place] # (Auto) 0.90 (0.00-0.90) K/UL Eos # (Auto) 0.11 (0.00-0.50) K/uL Baso # (Auto) 0.03 (0.00-0.30) K/uL Abs Immat Gran (auto) 0.03 (0.00-0.30) K/uL Imm/Tot Granulo (auto) 0.4 % Sodium 135 (135-149) mmol/L Potassium 3.0 L (3.6-5.1) mmol/L Chloride 87 L (96-114) mmol/L Carbon Dioxide 33 H (20-32) mmol/L Anion Gap 15 (7-15) mEq/L BUN 16 (5-24) mg/dL Creatinine 1.3 (0.5-1.5) mg/dL Estimated Creat Clear 92.03 Estimated GFR 76 ml/min Glucose 107 (60-115) mg/dL Calcium 9.5 (8.4-10.6) mg/dL Amylase 77 (18-89) U/L Salicylates < 1.0 L (1.0-10) mg/dL Urine Opiates Screen Negative (Negative) Ur Oxycodone Screen Negative (Negative) Urine Methadone Screen Negative (Negative) Acetaminophen < 10.0 (10.0-30.0) ug/mL Ur Barbiturates Screen Negative (Negative) U Tricyclic Antidepress Negative (Negative) Ur Phencyclidine Scrn Negative (Negative) Ur Amphetamines Screen Negative (Negative) U Methamphetamines Scrn Negative (Negative) U Benzodiazepines Scrn POSITIVE A (Negative) Urine Cocaine Screen Negative (Negative) U Marijuana (THC) Screen POSITIVE A (Negative) Ur Drug Screen Comment See Note Discharge Plan Discharge Clinical Impression: Cyclical vomiting, Severe anxiety with panic, Polysubstance abuse, Alcohol intoxication Patient Disposition: Home w/ Parent or Adult Condition: Stable Additional Instructions: No other further alcohol or benzodiazepines today or within 24 hours. Recommend follow up with regular doctor the next day or 2. Return if needed. Activity Level: Light activity Discharge Diet: Regular Prescriptions: No Action lorazepam 0.5 mg tablet 0.5 mg PO DAILY PRN prochlorperazine 25 mg suppository 25 mg OR Q12H PRN lisinopril 10 mg tablet 10 mg PO DAILY hydroxyzine HCl 25 mg tablet 25 - 50 mg PO Q6H PRN ondansetron 4 mg tablet,disintegrating 4 mg PO Q8H PRN Patient Comments: DISSOLVE 1 TABLET ON THE TONGUE EVERY 8 HOURS NEEDED FOR NAUSEA OR VOMITING desvenlafaxine succinate 50 mg tablet extended release 24 hr 50 mg PO DAILY trazodone 50 mg tablet 25 mg PO HS PRN clonidine 0.1 mg/24 hr patch weekly 1 patch topical .weekly melatonin 3 mg tablet 3 mg PO HS PRN dextroamphetamine-amphetamine [Adderall XR] 20 mg capsule,extended release 24hr 20 mg PO DAILY dextroamphetamine-amphetamine [Adderall] 10 mg tablet 5 - 10 mg PO DAILY gabapentin 600 mg tablet 600 mg PO HS naltrexone 50 mg tablet 50 mg PO DAILY sodium chloride 1,000 mg tablet,soluble 1,000 mg PO TID Qty: 10 0RF potassium bicarb-citric acid 25 mEq tablet, effervescent 25 meq PO BID Qty: 4 0RF promethazine 50 mg suppository 50 mg OR Q6H PRNQty: 12 0RF Follow Up/Referrals: Deepthi Mc, PAEllaC [Primary Care Provider, Family Practice] [facility]: [facility]
--- OUTSIDE RECORDS SUMMARY | 2024-12-25 23:36 | XMS_ITS ---
Author Organization Unknown Address [address] [place], [place] [id number] Phone Care Team Providers Care Base Cloth Inspector Name Role Phone CLAIRE TEJADA Attending Unavailable [...] Code Sys tem Cyclical vomiting syndrome 10/28/2023 [id number] S [facility] Personal Care Team Section
[2024-12-25 23:45] VITALS: PULSE 103; O2SAT 93
[2024-12-25 23:49] LABS: Basophils Absolute Auto 0.03 K/uL (0.00-0.30); Basophils Percent Auto 0.4 % (0.0-3.0); Eosinophils Absolute Auto 0.11 K/uL (0.00-0.50); Eosinophils Percent Auto 1.3 % (0.0-7.0); Hematocrit 46.9 % (37.0-53.0); Hemoglobin* 15.3 gm/dL (13.5-17.5); Immature Granulocytes Abs Auto 0.03 K/uL (0.00-0.30); Immature Granulocytes Pct Auto 0.4 %; Lymphocytes Absolute Auto 2.93 K/uL (0.90-2.90); Lymphocytes Percent Auto 35.4 % (20-44); Mean Corpuscular HGB Conc 33 gm/dL (32-36); Mean Corpuscular Hemoglobin 25 pg (26-34); Mean Corpuscular Volume 75 fL (80-100); Monocytes Percent Auto 10.9 % (0.0-11.0); Neutrophils Absolute Auto 4.28 K/uL (1.7-7.0); Neutrophils Percent Auto 51.6 % (42.0-72.0); Platelet Count* 419 K/uL (140-440); RDW Coefficient of Variation % 19.2 % (11.5-15.5); Red Blood Count 6.24 m/uL (4.30-5.90); White Blood Count* 8.28 K/uL (4.50-11.00)
[2024-12-25] MEDS: 0.9 % SODIUM CHLORIDE 1000 ml 1,000 ML 6000 ML IV (23:50)
[2024-12-25 23:54] LABS: Slide Review Reflex No
[2024-12-25 23:59] LABS: Chloride* 87 mmol/L (96-114); Sodium* 135 mmol/L (135-149)
[2024-12-26] VITALS: PULSE 112; O2SAT 96
[2024-12-26 00:02] LABS: Amylase* 77 U/L (18-89); Anion Gap 15 mEq/L (7-15); Blood Urea Nitrogen* 16 mg/dL (5-24); Calcium* 9.5 mg/dL (8.4-10.6); Carbon Dioxide* 33 mmol/L (20-32); Creatinine* 1.3 mg/dL (0.5-1.5); Est. Creatinine Clearance* 92.03; Estimated Glomerular Filt Rate 76 ml/min; Glucose* 107 mg/dL (60-115)
[2024-12-26 00:03] LABS: Acetaminophen* < 10.0 ug/mL (10.0-30.0); Salicylate* < 1.0 mg/dL (1.0-10)
[2024-12-26 00:23] VITALS: PULSE 202; O2SAT 94
[2024-12-26] MEDS: POTASSIUM BICARB 25 MEQ EFFERVESCENT TAB PO (00:23)
[2024-12-26 00:27] LABS: Amphetamine Screen Urine Negative (Negative); Barbiturate Screen Urine Negative (Negative); Benzodiazepines Screen Urine POSITIVE (Negative); Cannabinoid Screen Urine POSITIVE (Negative); Cocaine Screen Urine Negative (Negative); Methadone Screen Urine Negative (Negative); Methamphetamines Screen Urine Negative (Negative); Opiate Screen Urine Negative (Negative); Oxycodone Screen Urine Negative (Negative); Phencyclidine Screen Urine Negative (Negative); Tricyclic Antidepressant Urine Negative (Negative)
[2024-12-26 00:30] VITALS: PULSE 96; O2SAT 98
== END 2024-12-26 00:46 | disposition home or self-care (01) ==
PROVIDERS: Emergency Provider Family Medicine; PCP Physician Assistant Medical
DX: F10.129 Alcohol abuse with intoxication, unspecified (principal); F41.0 Panic disorder [episodic paroxysmal anxiety]; R11.15 Cyclical vomiting syndrome unrelated to migraine; F19.10 Other psychoactive substance abuse, uncomplicated
CPT/HCPCS: 36415; 80048; 80143; 80179; 80306; 82077; 82150; 85025; 94761; 99283; 99284; 99285; M0243; A9270; J7030